=== PATIENT | male | born 1955 | race Caucasian/White ===

== ENCOUNTER → 2017-05-29 | Outpatient (CLI) | payer BC ==
[~2017-05-29] MED LIST: ALFU1TAB37 PO; ASPCH81X PO; ASPI81CH2 PO; HRBLS PO; IPRA1AER2 INH; METO25TA56 PO; OMEGCAP2 PO; RIVA1TAB4 PO; TADA20TA PO
--- NOTE | 2017-05-29 08:39 | DIAGNOSTIC IMAGING REPORT ---
ABDOMEN FOR HERNIA HISTORY: 62 years-old Male R19.09 Abdominal wall mass of suprapubic [id number] COMPARISON: CT abdomen and pelvis 07/13/2014 TECHNIQUE: Multiple real-time sonogram images of the abdominal wall were obtained assessing grayscale appearance FINDINGS: Small fat filled right inguinal hernia is noted. Additionally, there is a small fat filled left inguinal hernia, both of which appear to be reducible without involvement of associated bowel. IMPRESSION: Small reducible bilateral fat filled inguinal hernias. The above report was generated using voice recognition software. It may contain grammatical, syntax or spelling errors. Electronically signed by: Hill Carmona M.D. 05/29/2017 8:38 AM Dictated Date/Time: 05/29/2017 8:35 AM
== END | disposition home or self-care (01) ==
LOC: C.ULTR 07:24
PROVIDERS: ATTEND Family Medicine
DX: K40.20 Bilateral inguinal hernia, without obstruction or gangrene, not specified as recurrent (principal)

== ENCOUNTER 2022-04-22 13:58 | Inpatient (IN) ==
--- NOTE | 2022-04-22 14:43 | XRay Report ---
TWO VIEW CHEST CLINICAL HISTORY: Atypical chest pain. Dyspnea. FINDINGS: PA and lateral chest radiographs are compared to study dated 04/21/2022 and correlated with chest CT dated 12/06/2012. The patient is status post midline sternotomy and cardiac valve surgery. The heart is enlarged noting atherosclerotic calcification of the thoracic aorta. There is pulmonary vas cular congestion. Chronic interstitial thickening similar to previous. There are small pleural effus ions with bibasilar scarring/atelectasis. There is no pneumothorax. The skeletal structures are osteo penic. The bony thorax appears intact. IMPRESSION: 1. Cardiomegaly with pulmonary vascular congestion. 2. Small pleural effusions. ACT 112: Negative or not required by law. Electronically signed by: Shen Aguilar M.D. 04/22/2022 2:42 PM
[2022-04-22 15:18] LABS: Basophils # (auto) 0.03 K/uL (0-0.2); Basophils % (auto) 0.3 %; Eosinophils # (auto) 0.08 K/uL (0-0.50); Eosinophils % (auto) 0.9 %; Hematocrit (blood only) 44.2 % (40.1-51.0); Hemoglobin 15.3 g/dl (14.0-18.0); Immature Granulocytes # (auto) 0.03 K/uL (0.00-0.02); Immature Granulocytes % (auto) 0.3 %; Lymphocytes # (auto) 1.23 K/uL (1.2-3.4); Lymphocytes % (auto) 14.2 %; Mean Corpuscular Hemoglobin 34.1 pg (25.0-34.0); Mean Corpuscular Hgb Conc 34.6 g/dL (32.0-36.0); Mean Corpuscular Volume 98.4 fL (80.0-100.0); Mean Platelet Volume 10.1 fL (9.4-12.4); Monocytes # (auto) 0.64 K/uL (0.24-0.82); Monocytes % (auto) 7.4 %; Neutrophils # (auto) 6.67 K/uL (1.4-6.5); Neutrophils % (auto) 76.9 %; Platelet Count 264 K/uL (130-400); RDW Coefficient of Variation 13.1 % (11.5-14.5); Red Blood Count 4.49 M/uL (4.63-6.08); White Blood Count 8.68 K/ul (4.8-10.8)
[2022-04-22 15:30] LABS: INR 1.1 (0.9-1.1); Partial Thromboplastin Ratio 0.9; Partial Thromboplastin Time 25.4 Seconds (21.0-31.0)
[2022-04-22 15:43] LABS: Albumin Globulin Ratio 1.1 (0.9-2); Albumin Level 3.4 gm/dl (3.4-5.0); BUN Creatinine Ratio 14.4 (10-20); Bilirubin,Total 0.5 mg/dl (0.2-1.0); Calcium 8.8 mg/dl (8.5-10.1); Creatinine Clr Calc Pharmacy 73.6 ml/min; Est GFR (African American) 86.3 ml/min; Est GFR (Non-African American) 74.5 ml/min; Potassium 3.8 mmol/L (3.5-5.1); Total Protein 6.4 gm/dl (6.0-8.3)
[2022-04-22 15:48] LABS: Troponin I High Sensitivity 43.8 pg/ml (0-20)
--- NOTE | 2022-04-22 16:17 | History & Physical Report ---
Date of Service April 22, 2022 Assessment & Plan (1) Heart failure: Plan: - Is presenting with shortness of breath and chest pressure, orthopnea and bilateral lower extremity edema x1 week with pulmonary congestion seen on CXR, BNP 2900. - Has a history of heart failure, last presentation to this hospital was in 2014 and that was due to severe MR at that time. He has since had the valve repaired, does not have close follow-up with cardiology. - Troponin mildly elevated to 40s, but downtrending from last evening when he initially presented. Suspect elevation is due to fluid, low suspicion for ACS. No current chest pain. - We will initiate IV diuresis with Lasix 20 mg twice daily with potassium repletion. - Echo in AM. - We will consult his fox farmer, Dr. Collins for assistance, patient will likely need reinitiated on several medications and re-established with regular cardiology appts. (2) Pleural effusion: Plan: - Diuresis as above. (3) Mitral regurgitation: Plan: - s/p repair in 2014 at [facility], do not have records or recent cardiology notes for review. - Echo ordered for tomorrow. (4) Hypertension: Plan: - Patient recently started on lisinopril 10 mg, will continue. (5) Alcohol abuse: Plan: - Patient reports drinking about a half of 1/5 of whiskey once daily, has gone several days previously without seizures or any other withdrawal symptoms. Last drink was this morning. - AWSS at risk protocol. - Folate and thiamine repletion daily. (6) Depression with anxiety: Plan: - Recently started on lexapro 10mg, will continue. Plan - Admit medicine with telemetry. - SCDs,Lovenox for VTE ppx. - Full Code. History of Present Illness Chief Complaint: Shortness of breath, chest pain x1 week and a half Primary Care Provider: MARLENE Stanton Carlton Jose is a 67 y/o male with a past medical history of alcohol use disorder, heart failure secondary to severe MR s/p repair in 2014, atrial flutter, hypertension, depression, and anxiety who presents today with shortness of breath. He initially presented last night with 1 week worth of shortness of breath and building chest pressure. Troponin was elevated at 45, he was hypertensive with mild tachycardia, and EKG had shown rate of 107 with LVH without any ischemic changes. 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 He called his fox farmer, Dr. Norman again this morning who recommended he return to the ED for further evaluation and likely admission. Today patient states his chest pain has resolved, has not had any since last evening but is still continuing to be short of breath and has had some swelling in his bilateral legs. He has not had any fever or chills, cough, congestion, further chest pain or palpitations. He does recall having what sounds like a viral URI 2 months ago but has recovered from this since. Patient has a history of heart failure and valve replacement in 2015 at [place], had originally followed with Dr. Collins more closely but over the past 3 years have had some personal life problems and unfortunately has not been able to follow-up with cardiology in 3 years he estimates. He has not been on any medications besides a daily aspirin for some time. On presentation today he is hypertensive and mildly tachycardic, 93% on room air and was placed on 2 L NC. Afebrile. Labs notable for BNP of 2930, troponin 43.8. His last 3 troponin over the past 24 hours have been [id number]. Renal function at baseline, no electrolyte abnormalities or elevated LFTs. Without leukocytosis or left shift. His CXR shows cardiomegaly with pulmonary vascular congestion and small pleural effusions. Patient will be admitted for diuresis secondary to presumed heart failure, further work-up to include cardiology consultation. Allergies Allergy/AdvReac Type Severity Reaction Status Date / Time aspirin [From Percodan] Allergy Verified 03/31/22 11:13 oxycodone [From Percodan] Allergy Verified 04/21/22 23:02 Home Medications Medication Instructions Recorded Confirmed Type aspirin 81 mg tablet,delayed 81 mg PO DAILY 04/21/22 04/22/22 History release coenzyme Q10 30 mg capsule (CoQ-10) 30 mg PO DAILY 04/21/22 04/22/22 History ibuprofen 200 mg tablet 200 mg PO BID PRN Pain 04/21/22 04/22/22 History ibuprofen 200 mg tablet 600 mg PO AMPM 04/21/22 04/22/22 History Past Med/Surg History Medical History (Updated 04/22/22 @ 17:18 by Rosa Simpson PA-C) Alcohol abuse Asthma Shoulder pain, acute Surgical History History of ankle surgery History of back surgery Hx of heart surgery Family History Brother Diabetes Mother Cancer Social History Smoking Status: Current every day smoker Tobacco Type: Cigarettes Hx Alcohol Use: Yes Preferred Language: Hebrew Communication Ability: Effective Shoe Packer Required: No Beliefs That Will Affect Care: None marital status: Legally Current Living Situation: Alone 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 Feels Safe at Home: Yes Review of Systems Review of Systems: Constitutional: No fever/chills, weakness, fatigue, myalgias, anorexia, night sweats Eyes: No diplopia, no worsening or blurred vision ENT: normal hearing, no trouble swallowing Respiratory: increasing sob/guzman with orthopnea x 1 week; no cough, sputum production Cardiovascular: chest pressure buildup over past week with and without exertion; without palpitations Abdomen: No pain, nausea, vomiting, diarrhea or constipation : Denies dysuria, hematuria, increased urgency/frequency, urinary retention Musculoskeletal: b/l lower extremity swelling x 1 week; No joint pain, calf pain Neurologic: No weakness, numbness/tingling, or balance problems Psychiatric: No anxiety or depression Skin: No rash or itch Physical Exam Physical Exam: General: awake, alert, no apparent distress,on 2L NC Head: Normocephalic, atraumatic ENT: PERRL, EOMI, no pharyngeal exudate, mucous membranes moist Chest: diminished breath sounds,some scattered mild expiratory wheezing; on 2L NC, no accessory muscle use Cardiac: Regular rate and rhythm, no murmur, no JVD, normal peripheral pulses, good capillary refill Abdominal: NABS x 4 quadrants, soft, nontender to palpation, no rebound, guarding or tenderness Extremities: Normal inspection, no peripheral edema or erythema, calfs nontender to palpation Psych: Normal mood and affect Neuro: AAO x 3, strength intact bilaterally and rated 5/5, no motor deficits, speech is clear, no peripheral sensory deficits Skin: no rash or erythema Results & Data Results & Data ([facility]) Vital Signs (Past 12 Hours) Vital Signs Temp Pulse Resp BP Pulse Ox 04/22/22 14:08 36.7 C 110 H 28 H 181/109 H 98 Laboratory Results Abnormal lab results 04/22/22 04/22/22 04/22/22 Range/Units 15:02 15:02 15:02 RBC 4.49 L (4.63-6.08) M/uL MCH 34.1 H (25.0-34.0) pg RDW Std Deviation 47.0 H (36.4-46.3) fL Neut # (Auto) 6.67 H (1.4-6.5) K/uL Immature Gran # (Auto) 0.03 H (0.00-0.02) K/uL Sodium 135 L (136-145) mmol/L Glucose 100 H (70-99(Fasting)) mg/dl Alkaline Phosphatase 106 H (34-104) U/L Troponin I High Sens 43.8 H (0-20) pg/ml B-Natriuretic Peptide 2930 H (0-100) pg/ml Diagnostic Findings Chest X-Ray 04/22/22 14:15 TWO VIEW CHEST CLINICAL HISTORY: Atypical chest pain. Dyspnea. FINDINGS: PA and lateral chest radiographs are compared to study dated 04/21/2022 and correlated with chest CT dated 12/06/2012. The patient is status post midline sternotomy and cardiac valve surgery. The heart is enlarged noting atheros clerotic calcification of the thoracic aorta. There is pulmonary vascular congestion. Chronic interstitial thickening similar to previous. There are small pleural effusions with bibasilar scarring/atelectasis. There is no pneumothorax. The skeletal structures are osteopenic. The bony thorax appears intact. IMPRESSION: 1. Cardiomegaly with pulmonary vascular congestion. 2. Small pleural effusions. ACT 112: Negative or not required by law. Electronically signed by: Shen Aguilar M.D. 04/22/2022 2:42 PM ECG Additional Comments: Sinus tachycardia Left atrial enlargement Nonspecific T wave abnormality Prolonged QT Abnormal ECG When compared with ECG of 21-APR-2022 20:51, No significant change was found. Code Status & VTE Plan Code Status Full Code. Supervising Physician Co-Signing Physician Notes Patient seen and examined, chart reviewed, case discussed with Rosa Simpson PA-C and I agree with the assessment and plan as above except as otherwise noted Labs and images reviewed 67-year-old male with a past medical history of alcohol use, heart failure s/p MR repair 2015, atrial flutter, hypertension, anxiety/depression who presents with 1 week of shortness of breath and chest pressure. Troponin mildly elevated at 45, EKG without ST segment changes/acute T wave changes. On initial evaluation patient is with shortness of breath, bibasilar crackles, bilateral lower extremity swelling. Patient seen at bedside, reports has had progressively increasing swelling in his legs and shortness of breath laying flat. Denies salty intake, is eating chips/pretzels at bedside. Did discuss effect of salt on fluid retention, and general recommendations for less than 2 g of sodium intake. Patient without any pain at bedside, no additional questions or concerns. Endorses brisk diuresis since being on Lasix. BNP is elevated, pulmonary congestion is seen on CXR. Suspect acute congestive heart failure. Given diuresis in ER, continue twice daily diuresis and a chest tube at loss of 1-1.5 L. Suspect elevated troponin in the setting of demand, trended. Echo pending. Daily alcohol use, follow for KP S protocol. No history of seizure/withdrawal. Agree with chronic management above. PG Care Time/CCT Total # of Minutes Spent Total Time Spent with Patient: Total time spent is greater than 50% in coordination of care (as documented) at patient's floor/unit and/or counseling patient: Coding Level of Care Code 31898 INT INP/OBS CARE 2/55MIN Diagnoses Heart failure I50.9 Pleural effusion J90 Mitral regurgitation I34.0 Hypertension I10 Alcohol abuse F10.10 Depression with anxiety F41.8
--- NOTE | 2022-04-22 16:29 | Electrocardiogram Report ---
Test Reason : Blood Pressure : / mmHG Vent. Rate : 105 BPM Atrial Rate : 105 BPM P-R Int : 150 ms QRS Dur : 092 ms QT Int : 368 ms P-R-T Axes : 057 067 062 degrees QTc Int : 486 ms Sinus tachycardia Left atrial enlargement Nonspecific T wave abnormality Prolonged QT Abnormal ECG When compared with ECG of 21-APR-2022 20:51, No significant change was found Confirmed by Uri Menard ([id number]) on 04/22/2022 4:29:40 PM Referred By: Confirmed By:Uri Menard
[2022-04-22] MEDS ORDERED: FUROSEMIDE 40 MG/4 ML VIAL IV STA (16:30)
[2022-04-22] MEDS ORDERED: POTASSIUM CHLORIDE CRTAB 20 MEQ TABCR PO STA (16:30)
--- NOTE | 2022-04-22 16:33 | Emergency Department Note ---
Impression & Plan CHF (congestive heart failure), Pleural effusion, Elevated troponin ED Provider Note NAME: RUDOLPH GOOD AGE: 67 SEX: M : 1955 ARRIVES VIA: Walk-In INFORMANT: [Patient][, ] ED PROVIDER(S): [Farshad Colmenares, DO] CHIEF COMPLAINT: shortness of breath HPI: Patient is a 67-year-old male with a past medical history of dissection of the HTN, CABG, who presents the ER for shortness of breath. This been getting worse over the past 2 weeks. He notes he can barely breathe now. He denies any chest pain belly pain. He admits to swelling on his legs. No nausea, vomiting, or diarrhea. He was referred in by his PCP. No other exacerbating or remitting factors. He notes that rest is the only thing that helps him as any movement makes him significantly short of breath. PAST MEDICAL HISTORY:See Below PAST SURGICAL HISTORY:See Below FAMILY HISTORY:See Below SOCIAL HISTORY:See Below HOME MEDICATIONS:See Below ALLERGIES:See Below VITALS:See Below PHYSICAL EXAMINATION: GENERAL: Sitting up in bed, alert, slightly dyspneic with conversation, on nasal cannula EYE EXAM: normal conjunctiva. OROPHARYNX: mucous membranes are moist LUNGS: Diminished bilaterally. Normal chest wall mechanics HEART: no murmurs, S1 normal and S2 normal ABDOMEN: abdomen soft, non-tender, normo-active bowel sounds, no masses, no rebound or guarding. BACK: Back is symmetrical on inspection and there is no deformity, no midline tenderness, no CVA tenderness. SKIN: no rashes and no bruising UPPER EXTREMITIES: upper extremities are grossly normal. LOWER EXTREMITIES: No pitting edema. NEURO EXAM: Normal sensorium, cranial nerves II-XII grossly intact, normal speech, no gross weakness of arms, no gross weakness of legs. MEDICAL DECISION MAKING: Patient is a 67-year-old male who presents ER for the boasting complaint. IV was established with labs obtained. Labs show no significant leukocytosis or anemia. INR was unremarkable. BMP along with LFTs bilirubin was unremarkable. BNP was significantly elevated at nearly 3000. Troponin elevated at 44 which is consistent with his baseline. Chest x-ray with cephalization and pleural effusions. He was given IV Lasix and oral potassium. EKG was nondiagnostic. He was updated bedside. Discussed case with the hospitalist for further evaluation and admission. Patient did remain on 2 L nasal cannula for comfort due to work of breathing as this initially helped significantly. external records were reviewed. Triage Nursing notes reviewed. Limited review of prior medical records performed Vital Signs: reviewed and remarkable for no significant abnormalities Differential diagnosis: Differential diagnoses includes but is not limited to pneumonia, bronchitis, COPD/Asthma exacerbation, pneumothorax, pulmonary embolism, congestive heart failure, acute coronary syndrome ER treatment provided: See below Diagnostics interpreted by me include EKG and cardiac monitoring as listed below: -Cardiac Monitoring: An order was placed for continuous cardiac monitoring. The monitor shows a rate of 80 with sinus rhythm. -ECG: Sinus rhythm rate of 105 Normal axis No PVCs QTC 486 -Laboratory studies:Interpreted by me as stated above in MDM and shown below. Imaging studies: Xrays: As interpreted by me: Portable AP upright 1 view of the chest shows no focal pneumonia CTs show: none Consultation(s): Discussed the case with Dr. Matthews for further evaluation in regards to presentation, work-up and treatment Procedures:none Critical Care: None Past Med/Surg History Medical History (Updated 04/22/22 @ 22:21 by Farshad Colmenares DO) Alcohol abuse Asthma Shoulder pain, acute Surgical History History of ankle surgery History of back surgery Hx of heart surgery Family History Brother Diabetes Mother Cancer Social History Smoking Status: Current every day smoker Tobacco Type: Cigarettes Cigarettes Per Day: 1/2 pack daily states he stopped 3 days ago; Tobacco Cessation Education Requested by Patient: No Hx Alcohol Use: Yes Alcohol type: other Hx Substance Use: Yes Last Used Substance: Unknown Preferred Language: Wallisian Communication Ability: Effective Communication Ability Comment: pt states he can read enough to get by but is not a very good reader Materials Management Manager Required: No Beliefs That Will Affect Care: None marital status: Legally Current Living Situation: Alone 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 Other Information That Helps Us Care for You: No Feels Safe at Home: Yes Safety Concerns: Feels Safe At This Time Assistive Devices: Glasses Assistive Devices Comment: reading glasses Allergies Allergies Allergy/AdvReac Type Severity Reaction Status Date / Time aspirin [From Percodan] Allergy Verified 03/31/22 11:13 oxycodone [From Percodan] Allergy Verified 04/21/22 23:02 Home Meds Home Medications Medication Instructions Recorded Confirmed aspirin 81 mg tablet,delayed 81 mg PO DAILY 04/21/22 04/22/22 release coenzyme Q10 30 mg capsule (CoQ-10) 30 mg PO DAILY 04/21/22 04/22/22 ibuprofen 200 mg tablet 200 mg PO BID PRN Pain 04/21/22 04/22/22 ibuprofen 200 mg tablet 600 mg PO AMPM 04/21/22 04/22/22 Results & Data (ED) Vital Signs Vital Signs - 24 hr 04/22/22 14:08 04/22/22 16:54 04/22/22 18:00 Temperature 36.7 C Temperature Source Skin Pulse Rate 110 H Pulse Rate [Apical] 108 H 112 H Pulse Rhythm Regular Pulse Strength Normal Respiratory Rate 28 H 19 20 Respiratory Effort / Characteristics Spontaneous Short of Breath SOB on Exertion Respiratory Depth Normal Respiratory Pattern Tachypnea Blood Pressure 181/109 H Blood Pressure [Right Arm] 154/106 H 160/103 H Blood Pressure Mean 133 Blood Pressure Mean [Right Arm] 122 122 Blood Pressure Position [Right Arm] Pulse Oximetry 98 99 96 Oxygen Delivery Method Nasal Cannula Oxygen Flow Rate 2 Sepsis Recent Fever Within 48 Hours No Sepsis New/Unexplained Change in Mental Status N/A Sepsis Action Taken by Nursing No Action Required 04/22/22 19:10 04/22/22 20:00 04/22/22 20:22 Temperature Temperature Source Pulse Rate Pulse Rate [Apical] 108 H Pulse Rhythm Pulse Strength Respiratory Rate Respiratory Effort / Characteristics Respiratory Depth Respiratory Pattern Blood Pressure Blood Pressure [Right Arm] 213/67 H 156/105 H 167/118 H Blood Pressure Mean Blood Pressure Mean [Right Arm] 115 122 134 Blood Pressure Position [Right Arm] Sitting Pulse Oximetry 97 Oxygen Delivery Method Nasal Cannula Oxygen Flow Rate 2 Sepsis Recent Fever Within 48 Hours Sepsis New/Unexplained Change in Mental Status Sepsis Action Taken by Nursing 04/22/22 21:13 04/22/22 22:10 Temperature Temperature Source Pulse Rate 101 H Pulse Rate [Apical] 106 H Pulse Rhythm Pulse Strength Respiratory Rate 22 16 Respiratory Effort / Characteristics Respiratory Depth Respiratory Pattern Blood Pressure Blood Pressure [Right Arm] 146/93 H Blood Pressure Mean Blood Pressure Mean [Right Arm] 110 Blood Pressure Position [Right Arm] Pulse Oximetry 98 97 Oxygen Delivery Method Nasal Cannula Nasal Cannula Oxygen Flow Rate 2 2 Sepsis Recent Fever Within 48 Hours Sepsis New/Unexplained Change in Mental Status Sepsis Action Taken by Nursing Laboratory Data 04/22/22 15:02 04/22/22 15:02 Lab Results 04/22/22 04/22/22 04/22/22 Range/Units 15:02 15:02 15:02 WBC 8.68 (4.8-10.8) K/ul RBC 4.49 L (4.63-6.08) M/uL Hgb 15.3 (14.0-18.0) g/dl Hct 44.2 (40.1-51.0) % MCV 98.4 (80.0-100.0) fL MCH 34.1 H (25.0-34.0) pg MCHC 34.6 (32.0-36.0) g/dL RDW Std Deviation 47.0 H (36.4-46.3) fL RDW Coeff of Donna 13.1 (11.5-14.5) % Plt Count 264 (130-400) K/uL MPV 10.1 (9.4-12.4) fL Immature Gran % (Auto) 0.3 % Neut % (Auto) 76.9 % Lymph % (Auto) 14.2 % Hardee % (Auto) 7.4 % Eos % (Auto) 0.9 % Baso % (Auto) 0.3 % Neut # (Auto) 6.67 H (1.4-6.5) K/uL Lymph # (Auto) 1.23 (1.2-3.4) K/uL [place]ee # (Auto) 0.64 (0.24-0.82) K/uL Eos # (Auto) 0.08 (0-0.50) K/uL Baso # (Auto) 0.03 (0-0.2) K/uL Immature Gran # (Auto) 0.03 H (0.00-0.02) K/uL PT 12.0 (9.0-12.0) Seconds INR 1.1 (0.9-1.1) APTT 25.4 (21.0-31.0) Seconds PTT Ratio 0.9 Sodium 135 L (136-145) mmol/L Potassium 3.8 (3.5-5.1) mmol/L Chloride 103 (98-107) mmol/L Carbon Dioxide 24 (21-32) mmol/L Anion Gap 8 (3-11) BUN 15 (6-23) mg/dl Creatinine 1.04 (0.6-1.4) mg/dl Est Cr Clr Drug Dosing 73.6 ml/min Est GFR ( Amer) 86.3 ml/min Est GFR (Non-Af Amer) 74.5 ml/min BUN/Creatinine Ratio 14.4 (10-20) Glucose 100 H (70-99(Fasting)) mg/dl Calcium 8.8 (8.5-10.1) mg/dl Total Bilirubin 0.5 (0.2-1.0) mg/dl AST 18 (13-39) U/L ALT 15 (7-52) U/L Alkaline Phosphatase 106 H (34-104) U/L Troponin I High Sens 43.8 H (0-20) pg/ml B-Natriuretic Peptide (0-100) pg/ml Total Protein 6.4 (6.0-8.3) gm/dl Albumin 3.4 (3.4-5.0) gm/dl Globulin 3.0 (2.5-4.0) gm/dl Albumin/Globulin Ratio 1.1 (0.9-2) SARS-CoV-2, RNA, NAAT (NEGATIVE) 04/22/22 04/22/22 Range/Units 15:02 16:39 WBC (4.8-10.8) K/ul RBC (4.63-6.08) M/uL Hgb (14.0-18.0) g/dl Hct (40.1-51.0) % MCV (80.0-100.0) fL MCH (25.0-34.0) pg MCHC (32.0-36.0) g/dL RDW Std Deviation (36.4-46.3) fL RDW Coeff of Donna (11.5-14.5) % Plt Count (130-400) K/uL MPV (9.4-12.4) fL Immature Gran % (Auto) % Neut % (Auto) % Lymph % (Auto) % [place]ee % (Auto) % Eos % (Auto) % Baso % (Auto) % Neut # (Auto) (1.4-6.5) K/uL Lymph # (Auto) (1.2-3.4) K/uL Hardee # (Auto) (0.24-0.82) K/uL Eos # (Auto) (0-0.50) K/uL Baso # (Auto) (0-0.2) K/uL Immature Gran # (Auto) (0.00-0.02) K/uL PT (9.0-12.0) Seconds INR (0.9-1.1) APTT (21.0-31.0) Seconds PTT Ratio Sodium (136-145) mmol/L Potassium (3.5-5.1) mmol/L Chloride (98-107) mmol/L Carbon Dioxide (21-32) mmol/L Anion Gap (3-11) BUN (6-23) mg/dl Creatinine (0.6-1.4) mg/dl Est Cr Clr Drug Dosing ml/min Est GFR ( Amer) ml/min Est GFR (Non-Af Amer) ml/min BUN/Creatinine Ratio (10-20) Glucose (70-99(Fasting)) mg/dl Calcium (8.5-10.1) mg/dl Total Bilirubin (0.2-1.0) mg/dl AST (13-39) U/L ALT (7-52) U/L Alkaline Phosphatase (34-104) U/L Troponin I High Sens (0-20) pg/ml B-Natriuretic Peptide 2930 H (0-100) pg/ml Total Protein (6.0-8.3) gm/dl Albumin (3.4-5.0) gm/dl Globulin (2.5-4.0) gm/dl Albumin/Globulin Ratio (0.9-2) SARS-CoV-2, RNA, NAAT NEGATIVE (NEGATIVE) Administered Medications Discontinued Medications Furosemide (Furosemide 40 Mg/4 Ml Vial) 40 mg IV NOW STA Stop: 04/22/22 16:31 Last Admin: 04/22/22 16:50 Dose: 40 mg Documented By: AMS Lisinopril (Lisinopril 10 Mg Tab) 10 mg PO NOW STA Stop: 04/22/22 19:12 Last Admin: 04/22/22 19:37 Dose: 10 mg Documented By: AMS Potassium Chloride (Potassium Chloride Crtab 20 Meq Tabcr) 40 meq PO NOW STA Stop: 04/22/22 16:31 Last Admin: 04/22/22 16:50 Dose: 40 meq Documented By: AMS Imaging Data Radiologist's Impression: Chest X-Ray 04/22/22 14:15 TWO VIEW CHEST CLINICAL HISTORY: Atypical chest pain. Dyspnea. FINDINGS: PA and lateral chest radiographs are compared to study dated 04/21/2022 and correlated with chest CT dated 12/06/2012. The patient is status post midline sternotomy and cardiac valve surgery. The heart is enlarged noting atherosclerotic calcification of the thoracic aorta. There is pulmonary vascular congestion. Chronic interstitial thickening similar to previous. There are small pleural effusions with bibasilar scarring/atelectasis. There is no pneumothorax. The skeletal structures are osteopenic. The bony thorax appears intact. IMPRESSION: 1. Cardiomegaly with pulmonary vascular congestion. 2. Small pleural effusions. ACT 112: Negative or not required by law. Electronically signed by: Shen Aguilar M.D. 04/22/2022 2:42 PM Discharge Plan Visit Data Chief Complaint: Referred by Doctor Stated Complaint: RETAINING FLUID, TROUBLE BREATHING ED Provider: Farshad Colmenares Discharge Problem: CHF (congestive heart failure), Pleural effusion, Elevated troponin Forms Stand Alone Forms: [employer] Prescriptions Prescriptions: No Action ibuprofen 200 mg Tablet 600 mg PO AMPM coenzyme Q10 [CoQ-10] 30 mg Capsule 30 mg PO DAILY ibuprofen [Excedrin IB] 200 mg Tablet 200 mg PO BID PRN (Reason: Pain) aspirin 81 mg Tablet,Delayed Release (Dr/Ec) 81 mg PO DAILY Referrals Referrals: Rosemarie Lopes CRNP [Primary Care Provider] -
[2022-04-22] MEDS ORDERED: lisinopril 10 MG TAB PO STA (19:11)
[2022-04-22] MEDS ORDERED: PNEUMOCOCCAL Polysaccharide Vaccine 25mcg/0.5mL vial/Syr IM ONE (20:45)
[2022-04-22] MEDS ORDERED: Flu Vaccine-High Dose (Fluzone-HD) PF 65+ 0.7mL SYR IM ONE (20:45)
[2022-04-22] MEDS ORDERED: CALCIUM CARBONATE 500 MG CHEWABLE TAB PO PRN (23:04)
[2022-04-22] MEDS ORDERED: LORazepam 2 MG/1 ML VIAL IV PRN (23:09)
[2022-04-22] MEDS ORDERED: IBUPROFEN 200 MG TAB PO PRN (23:09)
[2022-04-22] MEDS ORDERED: ACETAMINOPHEN 325 MG TAB PO PRN (23:09)
[2022-04-22] MEDS ORDERED: ALBUT/IPRATROP 3MG/0.5MG NEB 3 ML VIAL NEB PRN (23:09)
[2022-04-22] MEDS ORDERED: POLYETHYLENE (MIRALAX) 17 GM PACK PO PRN (23:09)
[2022-04-22] MEDS: FUROSEMIDE INJ 20 MG/2 ML VIAL IV SCH (23:49)
[2022-04-22] MEDS: POTASSIUM CHLORIDE CRTAB 20 MEQ TABCR PO SCH (23:49)
[2022-04-23] MEDS: ENOXAPARIN INJ 40 MG/0.4 ML SYR SQ SCH ×2 (00:18→19:54)
[2022-04-23] MEDS: ALBUT/IPRATROP 3MG/0.5MG NEB 3 ML VIAL INH SCH ×5 (00:32→19:19)
[2022-04-23 08:06] LABS: Basophils # (auto) 0.04 K/uL (0-0.2); Basophils % (auto) 0.5 %; Eosinophils # (auto) 0.12 K/uL (0-0.50); Eosinophils % (auto) 1.5 %; Hemoglobin 15.6 g/dl (14.0-18.0); Immature Granulocytes # (auto) 0.03 K/uL (0.00-0.02); Immature Granulocytes % (auto) 0.4 %; Lymphocytes # (auto) 1.56 K/uL (1.2-3.4); Mean Corpuscular Hemoglobin 33.8 pg (25.0-34.0); Mean Corpuscular Hgb Conc 34.7 g/dL (32.0-36.0); Mean Corpuscular Volume 97.6 fL (80.0-100.0); Mean Platelet Volume 10.7 fL (9.4-12.4); Monocytes # (auto) 0.81 K/uL (0.24-0.82); Monocytes % (auto) 9.9 %; Neutrophils # (auto) 5.64 K/uL (1.4-6.5); Neutrophils % (auto) 68.7 %; Platelet Count 257 K/uL (130-400); RDW Coefficient of Variation 13.1 % (11.5-14.5); RDW Standard Deviation 46.3 fL (36.4-46.3); Red Blood Count 4.61 M/uL (4.63-6.08)
[2022-04-23] MEDS ORDERED: lisinopril 10 MG TAB PO SCH (09:00)
[2022-04-23] MEDS ORDERED: COENZYME Q10 30 MG PO SCH (09:00)
[2022-04-23] MEDS ORDERED: THIAMINE HCL 100 MG TAB PO SCH (09:00)
[2022-04-23 09:07] LABS: Calcium 8.8 mg/dl (8.5-10.1); Magnesium 1.8 mg/dl (1.7-2.4); Potassium 3.6 mmol/L (3.5-5.1)
[2022-04-23 09:13] LABS: BUN Creatinine Ratio 19.8 (10-20); Creatinine Clr Calc Pharmacy 79.8 ml/min; Est GFR (African American) 95.1 ml/min
[2022-04-23] MEDS: ASPIRIN 81 MG ECTAB PO SCH (10:00)
[2022-04-23] MEDS: POTASSIUM CHLORIDE CRTAB 20 MEQ TABCR PO SCH ×2 (10:00→19:54)
[2022-04-23] MEDS: ESCITALOPRAM OXALATE 10 MG TAB PO SCH (10:01)
[2022-04-23] MEDS: FOLIC ACID 1 MG TAB PO SCH (10:01)
[2022-04-23] MEDS: THIAMINE HCL 100 MG TAB PO SCH ×2 (10:02→19:55)
[2022-04-23] MEDS: FUROSEMIDE INJ 20 MG/2 ML VIAL IV SCH (10:06)
--- NOTE | 2022-04-23 12:46 | Cardiology Consultation ---
Date of Consultation April 23, 2022 History of Present Illness Reason for Consultation: Nonischemic cardiomyopathy likely secondary to alcohol abuse, previous mitral valve repair Attending Physician: Adrian Rodrigues History of Present Illness This is a patient I have not seen in over 2 years. He underwent mitral valve repair in 2014. He has had a number of stressful events including a divorce and a fight overland with his family. It sounds like he has lost both of those situations in court. This has led him to drinking a half of 1/5 of alcohol every day over the last year. He notes increasing shortness of breath with activity it became worse in the last 2 weeks. He describes some degree of orthopnea and lower extremity edema. He looks significantly worse compared to when I last saw him. He denies any lightest dizziness presyncope syncope. He notes his appetites been so-so. He denies any increased abdominal distention. He is unaware of any palpitations or fluttering or feeling his heart racing. He was seen in the emergency room for chest discomfort and shortness of breath with a mildly elevated highly sensitive troponin likely on the basis of heart failure. He signed out AGAINST MEDICAL ADVICE as he did not want to stay in the hospital. He had contacted our office to be seen and with those symptoms we recommended he return back to the hospital. He is feeling better with diuresis today the chest discomfort he had is improving. 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 I discussed with him he needs to stay at least till tomorrow. Allergies Allergy/AdvReac Type Severity Reaction Status Date / Time aspirin [From Percodan] Allergy Verified 03/31/22 11:13 oxycodone [From Percodan] Allergy Verified 04/21/22 23:02 Home Medications Medication Instructions Recorded Confirmed Type aspirin 81 mg tablet,delayed 81 mg PO DAILY 04/21/22 04/22/22 History release coenzyme Q10 30 mg capsule (CoQ-10) 30 mg PO DAILY 04/21/22 04/22/22 History ibuprofen 200 mg tablet 200 mg PO BID PRN Pain 04/21/22 04/22/22 History ibuprofen 200 mg tablet 600 mg PO AMPM 04/21/22 04/22/22 History Patient History Medical History Alcohol abuse Asthma Shoulder pain, acute Surgical History History of ankle surgery History of back surgery Hx of heart surgery Family History Brother Diabetes Mother Cancer Social History Smoking Status: Current every day smoker Tobacco Type: Cigarettes Cigarettes Per Day: 1/2 pack daily states he stopped 3 days ago; Tobacco Cessation Education Requested by Patient: No Hx Alcohol Use: Yes Alcohol type: other Hx Substance Use: Yes Last Used Substance: Unknown Preferred Language: Polish Communication Ability: Effective Communication Ability Comment: pt states he can read enough to get by but is not a very good reader Shell Grader Required: No Beliefs That Will Affect Care: None marital status: Legally Current Living Situation: Alone 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 Other Information That Helps Us Care for You: No Feels Safe at Home: Yes Safety Concerns: Feels Safe At This Time Assistive Devices: Glasses Assistive Devices Comment: reading glasses Results & Data ([facility]) Vital Signs (Past 12 Hours) Vital Signs Temp Pulse Pulse Resp BP Pulse Ox O2 Del Method 04/23/22 11:57 36.3 C L 97 H 19 136/86 97 Room Air 04/23/22 06:00 Room Air 04/23/22 08:00 103 H 04/23/22 08:03 36.7 C 73 20 113/77 98 Room Air 04/23/22 07:27 104 H 18 97 Room Air 04/23/22 03:20 36.8 C 102 H 18 134/86 97 Room Air He is awake alert and oriented x3 although at times he has some difficulty finding words and a little bit of slurred speech HEENT: Markedly reduced carotid upstrokes no evidence of carotid bruits Lungs: Clear to auscultation bilaterally no rales rhonchi or wheezing Heart: Tachycardic but regular no appreciable murmurs or rubs it was hard to appreciate a gallop given his tachycardia Abdomen: Soft nontender distended positive bowel sounds Extremities: Mild lower extremity edema with prominent swelling of his right knee Psychiatric: He is visibly upset talking about the trials and tribulations of his family life. IMPRESSIONS: 1. Acute on chronic systolic heart failure secondary to nonischemic cardiopathy 2. Nonischemic cardiomyopathy likely secondary to alcohol abuse 3. History of mitral valve repair with quadrangular resection of the P2 component of the posterior mitral valve leaflet with a 30 mm ring July 2014 at [facility] 4. Previous echocardiogram in 2019 suggesting EF in the range of 50 to 55% 5. Echocardiogram this admission suggesting severe biventricular dysfunction, mean gradient across the mitral valve for plate repair of 7 mmHg with at least mild mitral regurgitation 6. History of cardiac catheterization preoperatively with a 40% mid LAD lesion and an ostial 70% D2 lesion and a medium vessel 7. History of atrial flutter ablation October 2014 8. Alcohol abuse 9. COPD 10. Depression Fortunately the whole seems to have caused Mr. Pendleton to have a nonischemic cardiomyopathy. We discussed the need to sustain from drinking alcohol. We will have to be careful that he does not go through withdrawal. His speech does seem a little slurred even though he denies having had withdrawal in the past even if he did not drink for a couple of days given the volume that he has been drinking for at least a year it is concerning. We will add Entresto low-dose twice daily. He was not on lisinopril as an outpatient according to his outpatient med rec therefore he only received 1 dose and I think we can start his Entresto this evening. We already asked that care management be involved to help with his medications. We will add Toprol-XL 25 mg nightly. He needs daily weights on a standing scale. I will give him an additional 40 mg of Lasix this afternoon and then we can reassess his volume status in the morning. He will need to go home with Lasix. He has significant psychosocial stressors leading to his alcohol use he feels alone and isolated and depressed. I did ask him if he would be interested in meeting with psychiatry and he is agreeable to this while he is here in the hospital. He has had no arrhythmias on the monitor at this point. Hopefully he will give us the time to try to tune him up and help him feel better he actually describes wanting to leave the hospital today and I suggested that was a bad decision. If we can stabilize him maybe we can get him out tomorrow afternoon. After he is on aggressive medical therapy for 90 days and abstaining from alcohol for 90 days we will reassess his LV function and see if it is improved and then have a conversation with regards to a defibrillator. Is minimal troponin elevation is related to heart failure. We will have to watch his serum sodium and his creatinine as we diurese him. This was discussed with the primary service.
[2022-04-23] MEDS: METOPROLOL SUCC 25MG EXT REL TAB PO SCH (14:24)
[2022-04-23] MEDS ORDERED: FUROSEMIDE 40 MG/4 ML VIAL IV ONE (15:38)
[2022-04-23] MEDS: VALSARTAN/SACUBITRIL 26/24MG TAB PO SCH (19:53)
[2022-04-23] MEDS ORDERED: GABAPENTIN 600MG ALCOHOL WITHDRAWAL LOAD PO STA (21:38)
[2022-04-23] MEDS ORDERED: GABAPENTIN 600 MG TAB PO ONE (21:38)
--- NOTE | 2022-04-23 21:38 | Hospitalist Progress Note ---
Date of Service April 23, 2022 Assessment & Plan (1) Acute on chronic systolic heart failure: Plan: echo with severe systolic CHF - EF 20-25%. etiology - this may be alcoholic cardiomyopathy. ischemic cardiomyopathy possible ? defer heart cath to cardiology. no evidence of significant valvular disease. cont IV diuresis with lasix BID. agree with institution of metoprolol succinate + Entresto BID. stop lisinopril. needs full abstinence from etoh. add thiamine 200mg BID. appreciate Dr Collins's consultation from [facility] cardiology. (2) Mitral regurgitation: Plan[place] [facility] [place] on echo today. (3) Hypertension: Plan: Stopping lisinopril in pernell of initiation of metoprolol succinate + Entresto. (4) Alcohol abuse: Plan: Patient reports drinking about a half of 1/5 of whiskey once daily. At high risk of etoh withdrawal. Add gabapentin taper. Symptom-triggered ativan per AWSS protocol. Folate and thiamine supplementation - increase latter to 200mg BID. (5) Depression with anxiety: Plan: Cont lexapro 10mg (6) Elevated troponin: Plan: 2nd to myocardial demand ischemia in setting of #1. No evidence of ACS. (7) History of mitral valve repair: Plan[place] [facility] [place] mild MR on echo today. 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 he feels significantly better s/p lasix since admission improved dyspnea improved edema of legs he does not feel shaky or feel he is withdrawing from etoh he does understand that etoh abuse has likely affected his heart function he hopes to remain abstinent after discharge mentions he had a previous traumatic wound of his right medial foot which has resolved tele - couple runs of NSVT, otherwise sinus tach Review of Systems Review of Systems: cv - no chest pain pulm - dyspnea improved GI - no nausea or emesis Physical Exam Physical Exam: gen - thin, sitting in chair, NAD neck - JVD present 1/2 way up neck sitting at 90 degrees mouth - MMM heart - tachycardic, s1 s2, 1-2/6 systolic murmur LLSB lungs - fine bibasilar rales; no wheeze; no increased work of breathing abd - soft NT ND BS+ ext - <1+ edema b/l, pulses 2+ b/l skin - old traumatic wound right medial foot - fully healed neuro - no tremors Results & Data Results & Data ([facility]) Vital Signs (Past 12 Hours) Vital Signs Temp Pulse Pulse Resp BP Pulse Ox O2 Del Method 04/23/22 20:16 Room Air 04/23/22 19:35 36.7 C 108 H 20 145/90 H 96 Room Air 04/23/22 19:20 103 H 18 96 Room Air 04/23/22 17:00 106 H 04/23/22 15:23 36.4 C L 83 18 148/96 H 98 Room Air 04/23/22 13:59 103 H 18 97 Room Air 04/23/22 11:57 36.3 C L 97 H 19 136/86 97 Room Air Laboratory Results Laboratory Results - last 24 hr 04/23/22 04/23/22 04/23/22 06:43 06:43 08:26 WBC 8.20 RBC 4.61 L Hgb 15.6 Hct 45.0 MCV 97.6 MCH 33.8 MCHC 34.7 RDW Std Deviation 46.3 RDW Coeff of Donna 13.1 Plt Count 257 MPV 10.7 Immature Gran % (Auto) 0.4 Neut % (Auto) 68.7 Lymph % (Auto) 19.0 [place]er % (Auto) 9.9 Eos % (Auto) 1.5 Baso % (Auto) 0.5 Neut # (Auto) 5.64 Lymph # (Auto) 1.56 [place]er # (Auto) 0.81 Eos # (Auto) 0.12 Baso # (Auto) 0.04 Immature Gran # (Auto) 0.03 H Sodium 138 Potassium 3.6 Chloride 104 Carbon Dioxide 26 Anion Gap 8 BUN 19 Creatinine 0.96 Est Cr Clr Drug Dosing 79.8 Est GFR ( Amer) 95.1 Est GFR (Non-Af Amer) 82.0 BUN/Creatinine Ratio 19.8 Glucose 91 Calcium 8.8 Magnesium 1.8 TSH 1.039 Diagnostic Findings echo - EF 20-25%; mild MR PG Care Time/CCT Total # of Minutes Spent Total Time Spent with Patient: Total time spent is greater than 50% in coordination of care (as documented) at patient's floor/unit and/or counseling patient: Coding Level of Care Code 13519 SUB INP/OBS CARE MIN Diagnoses Acute on chronic systolic heart failure I50.23 Mitral regurgitation I34.0 Hypertension I10 Alcohol abuse F10.10 Depression with anxiety F41.8 Elevated troponin R77.8 History of mitral valve repair Z98.890
[2022-04-23] MEDS ORDERED: MELATONIN 3 MG TAB PO ONE (22:55)
[2022-04-24] MEDS: ALBUT/IPRATROP 3MG/0.5MG NEB 3 ML VIAL INH SCH (00:55)
[2022-04-24] MEDS: GABAPENTIN 100 MG CAP PO SCH ×2 (04:06→09:10)
[2022-04-24] MEDS ORDERED: ALBUT/IPRATROP 3MG/0.5MG NEB 3 ML VIAL NEB PRN (05:13)
[2022-04-24 07:31] LABS: Calcium 8.7 mg/dl (8.5-10.1); Magnesium 1.7 mg/dl (1.7-2.4); Potassium 3.8 mmol/L (3.5-5.1)
[2022-04-24 07:37] LABS: Creatinine Clr Calc Pharmacy 67.3 ml/min; Est GFR (African American) 85.3 ml/min; Est GFR (Non-African American) 73.6 ml/min
[2022-04-24] MEDS: THIAMINE HCL 100 MG TAB PO SCH ×2 (09:11→19:39)
[2022-04-24] MEDS: ESCITALOPRAM OXALATE 10 MG TAB PO SCH (09:11)
[2022-04-24] MEDS: POTASSIUM CHLORIDE CRTAB 20 MEQ TABCR PO SCH ×2 (09:11→19:40)
[2022-04-24] MEDS: FOLIC ACID 1 MG TAB PO SCH (09:11)
[2022-04-24] MEDS: METOPROLOL SUCC 25MG EXT REL TAB PO SCH (09:11)
[2022-04-24] MEDS: ASPIRIN 81 MG ECTAB PO SCH (09:11)
[2022-04-24] MEDS: VALSARTAN/SACUBITRIL 26/24MG TAB PO SCH (09:11)
--- NOTE | 2022-04-24 11:35 | Cardiology Progress Note ---
Date of Service April 24, 2022 Assessment & Plan Admission and Anticipated Discharge Date Admission Date: April 22, 2022 Subjective He looks better today. His chest pain is resolved his shortness of breath is improving he notes he walked in the hospital yesterday without any dyspnea. He denies any orthostatic symptoms. His lower extremity edema in his ankles and lower extremities has improved his right knee remains swollen. He denies any falls. He is having back discomfort. He is unaware of any palpitations or fluttering. Results & Data ([facility]) Vital Signs (Past 12 Hours) Vital Signs Temp Pulse Pulse Resp BP Pulse Ox O2 Del Method 04/24/22 07:49 106 H 04/24/22 06:38 36.4 C L 99 H 20 135/95 94 Room Air 04/24/22 04:00 36.3 C L 103 H 20 155/93 H 92 Room Air 04/24/22 00:55 99 H 16 94 Room Air He is awake alert and oriented x3 although at times he has some difficulty finding words and a little bit of slurred speech HEENT: Markedly reduced carotid upstrokes no evidence of carotid bruits Lungs: Clear to auscultation bilaterally no rales rhonchi or wheezing Heart: Tachycardic but regular no appreciable murmurs or rubs it was hard to appreciate a gallop given his tachycardia Abdomen: Soft nontender distended positive bowel sounds Extremities: no c/c/e Psychiatric:affect appeared better IMPRESSIONS: 1. Acute on chronic systolic heart failure secondary to nonischemic cardiopathy 2. Nonischemic cardiomyopathy likely secondary to alcohol abuse 3. History of mitral valve repair with quadrangular resection of the P2 component of the posterior mitral valve leaflet with a 30 mm ring July 2014 at [facility] 4. Previous echocardiogram in 2019 suggesting EF in the range of 50 to 55% 5. Echocardiogram this admission suggesting severe biventricular dysfunction, mean gradient across the mitral valve for plate repair of 7 mmHg with at least mild mitral regurgitation 6. History of cardiac catheterization preoperatively with a 40% mid LAD lesion and an ostial 70% D2 lesion and a medium vessel 7. History of atrial flutter ablation October 2014 8. Alcohol abuse 9. COPD 10. Depression We discussed the need for low-salt diet and daily weights. I reviewed foods that he cannot eat at home unfortunately he is cooking for himself and as a male individual who has to cook for himself they tend to get tremendous amounts of salt and processed foods. We discussed avoiding these types of foods. He will need heart failure education both here in the hospital as well as an outpatient. His blood pressure has improved his urine output has been quite brisk after 60 mg total of IV furosemide yesterday. We will increase his heart failure regimen with a total of 50 mg of Toprol daily, increasing his Entresto to the middle dose, and he should go home on Lasix 40 mg daily. He will need a BMP in a week along with a magnesium level. We will arrange for him to be seen in the office in the next 7 to 10 days. He has had no further runs of nonsustained VT on the coil maker he has occasional PVCs. Hopefully with pushing his beta-blockers and improving his heart failure status his ventricular ectopy will improve. With an EF in the range of 20% there is a risk of sudden cardiac he is not going to wear a LifeVest.
[2022-04-24] MEDS ORDERED: METOPROLOL SUCC 25MG EXT REL TAB PO ONE (12:15)
[2022-04-24] MEDS ORDERED: VALSARTAN/SACUBITRIL 26/24MG TAB PO ONE (12:15)
[2022-04-24] MEDS: FUROSEMIDE 40 MG TAB PO SCH (12:53)
[2022-04-24] MEDS: ENOXAPARIN INJ 40 MG/0.4 ML SYR SQ SCH (19:38)
[2022-04-24] MEDS: VALSARTAN/SACUBITRIL 51/49 MG TAB PO SCH (19:40)
--- NOTE | 2022-04-24 20:24 | Hospitalist Progress Note ---
Date of Service April 24, 2022 Assessment & Plan (1) Acute on chronic systolic heart failure: Plan: SIGNIFICANTLY improved volume status - approaching euvolemia. echo with severe systolic CHF - EF 20-25%. etiology - alcoholic cardiomyopathy? ischemic cardiomyopathy possible ? --> defer heart cath to cardiology. no evidence of significant valvular disease. stop IV diuresis with lasix BID. change to PO lasix 40mg daily. cardiology increased doses of both metoprolol succinate + Entresto BID. needs full abstinence from etoh. cont thiamine 200mg BID. cont K + mag supplements. appreciate Dr Collins's consultation from [facility]. (2) Mitral regurgitation: Plan: s/p repair in 2014 at [facility] [place]. mild MR on echo this admission. (3) Hypertension: Plan: controlled with metoprolol succinate + Entresto. (4) Alcohol abuse: Plan: Patient reports drinking about a half of 1/5 of whiskey once daily. At high risk of etoh withdrawal. Remains on gabapentin taper. Symptom-triggered ativan per AWSS protocol. None neededd thus far. Cont Folate and thiamine supplementation. (5) Depression with anxiety: Plan: Cont lexapro 10mg (6) Elevated troponin: Plan: 2nd to myocardial demand ischemia in setting of #1. No evidence of ACS. (7) History of mitral valve repair: Plan: 2014 at [facility] [place]. only mild MR on echo this admission. 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 - and wants to get home to tend to them he feels MUCH better dyspnea resolved LE edema nearly resolved no orthopnea or chest pain tele overnight - NSR; couple runs of NSVT earlier yesterday Review of Systems Review of Systems: gen - feels good, eating well cv - no cp, no orthopnea, no PND pulm - no [facility] GI - no nausea/emesis Physical Exam 2 Physical Exam: gen - thin, sitting in chair, NAD neck - JVD much improved mouth - MMM heart - RRR, s1 s2, 1-2/6 systolic murmur LLSB -> axillae lungs - CTA b/l abd - soft NT ND BS+ ext - <1+ edema right ankle, none on left neuro - no tremors; no signs of DTs Results & Data Results & Data ([facility]) Vital Signs (Past 12 Hours) Vital Signs Temp Pulse Pulse Resp BP Pulse Ox O2 Del Method 04/24/22 18:21 36.5 C 88 18 114/76 96 Room Air 04/24/22 15:44 36.4 C L 88 18 116/80 98 Room Air 04/24/22 15:25 94 H 04/24/22 11:48 36.6 C 78 18 105/67 91 Room Air Laboratory Results Laboratory Results - last 24 hr 04/24/22 06:32 Sodium 135 L Potassium 3.8 Chloride 100 Carbon Dioxide 27 Anion Gap 8 BUN 21 Creatinine 1.05 Est Cr Clr Drug Dosing 67.3 Est GFR ( Amer) 85.3 Est GFR (Non-Af Amer) 73.6 BUN/Creatinine Ratio 20.0 Glucose 95 Calcium 8.7 Magnesium 1.7 PG Care Time/CCT Total # of Minutes Spent Total Time Spent with Patient: Total time spent is greater than 50% in coordination of care (as documented) at patient's floor/unit and/or counseling patient: Coding Level of Care Code 41623 SUB INP/OBS CARE 2/35MIN Diagnoses Acute on chronic systolic heart failure I50.23 Mitral regurgitation I34.0 Hypertension I10 Alcohol abuse F10.10 Depression with anxiety F41.8 Elevated troponin R77.8 History of mitral valve repair Z98.890
[2022-04-24] MEDS ORDERED: MELATONIN 3 MG TAB PO SCH (21:00)
[2022-04-24] MEDS: MAGNESIUM OXIDE 400 MG TAB PO SCH (21:29)
[2022-04-24] MEDS ORDERED: GABAPENTIN 600 MG TAB PO SCH (21:45)
[2022-04-25 07:37] LABS: BUN Creatinine Ratio 26.3 (10-20); Calcium 8.7 mg/dl (8.5-10.1); Creatinine Clr Calc Pharmacy 74.4 ml/min; Est GFR (African American) 96.3 ml/min; Est GFR (Non-African American) 83.1 ml/min; Magnesium 1.9 mg/dl (1.7-2.4); Potassium 4.6 mmol/L (3.5-5.1)
[2022-04-25] MEDS: ESCITALOPRAM OXALATE 10 MG TAB PO SCH (07:58)
[2022-04-25] MEDS: ASPIRIN 81 MG ECTAB PO SCH (07:58)
[2022-04-25] MEDS: FOLIC ACID 1 MG TAB PO SCH (07:59)
[2022-04-25] MEDS: FUROSEMIDE 40 MG TAB PO SCH (07:59)
[2022-04-25] MEDS: MAGNESIUM OXIDE 400 MG TAB PO SCH (08:00)
[2022-04-25] MEDS: THIAMINE HCL 100 MG TAB PO SCH (08:00)
[2022-04-25] MEDS: POTASSIUM CHLORIDE CRTAB 20 MEQ TABCR PO SCH (08:00)
[2022-04-25] MEDS: VALSARTAN/SACUBITRIL 51/49 MG TAB PO SCH (08:00)
[2022-04-25] MEDS ORDERED: METOPROLOL SUCC 50MG EXT REL TAB PO SCH (09:00)
--- NOTE | 2022-04-25 09:18 | Cardiology Progress Note ---
Date of Service April 25, 2022 Assessment & Plan (1) Acute on chronic systolic heart failure: Plan IMPRESSIONS: 1. Acute on chronic systolic heart failure secondary to nonischemic cardiopathy 2. Nonischemic cardiomyopathy likely secondary to alcohol abuse 3. History of mitral valve repair with quadrangular resection of the P2 component of the posterior mitral valve leaflet with a 30 mm ring July 2014 at [facility] 4. Previous echocardiogram in 2019 suggesting EF in the range of 50 to 55% 5. Echocardiogram this admission suggesting severe biventricular dysfunction, mean gradient across the mitral valve for plate repair of 7 mmHg with at least mild mitral regurgitation 6. History of cardiac catheterization preoperatively with a 40% mid LAD lesion and an ostial 70% D2 lesion and a medium vessel 7. History of atrial flutter ablation October 2014 8. Alcohol abuse 9. COPD 10. Depression Mr. Jose feels that he is back to his baseline today. I reiterated to him that he needs to maintain a diet of less than 2000 mg of sodium per day. He notes that his daughter is a business performance specialist and planning to help him. We also discussed daily weights and to report weight gain of 2lbs in 24 hours or 5lbs in a week. He should bring a list of his weights to his follow up appointment at the cardiology clinic. His blood pressure has improved and he appears euvolemic. He is tolerating mid range Entresto and Toprol, he should go home on Lasix 40 mg daily. He will need a BMP in a week along with a magnesium level. We will arrange for him to be seen in the office in the next 7 to 10 days. He did not have any runs of VT overnight but did over the weekend. Given his EF in the range of 20% conveys a risk of sudden cardiac , a defibrillator vest is recommended. He is agreeable. Case management is going to help organize this for discharge. He will need to abstain from alcohol going forward. Defer to hospitalist on whether patient needs a gabapentin or Librium taper for home. Admission and Anticipated Discharge Date Admission Date: April 22, 2022 Subjective Mr. Jose is feeling well. He denies sob, chest pain, or palpitations. He feels he is breathing back at his baseline. His edema has resolved. He is looking forward to going home. No events on telemetry overnight. SR in 90s today Review of Systems Review of Systems: All systems reviewed & are unremarkable except as noted in HPI & below Physical Exam Constitutional: WD/WN, vitals as above Respiratory: normal respiratory effort, lungs clear to auscultation Cardiovascular: RRR, no murmur, no edema Skin: no rashes, warm and dry Neurologic: moves all extremities and awake Psychiatric: A+Ox3, euthymic affect Results & Data ([facility]) Vital Signs (Past 12 Hours) Vital Signs Temp Pulse Pulse Resp BP Pulse Ox O2 Del Method 04/25/22 07:43 98 H 04/25/22 07:06 36.4 C L 82 16 110/64 92 Room Air 04/25/22 03:46 36.5 C 84 16 117/62 94 Room Air 04/24/22 21:58 93 H 04/24/22 23:25 36.3 C L 93 H 18 108/73 97 Room Air
--- NOTE | 2022-04-25 14:49 | Discharge Summary ---
Date of Service date of admission - April 22, 2022 date of discharge - April 25, 2022 Admission HPI Per Admitting Provider Carlton Jose is a 67 y/o male with a past medical history of alcohol use disorder, heart failure secondary to severe MR s/p repair in 2014, atrial flutter, hypertension, depression, and anxiety who presents today with shortness of breath. He initially presented last night with 1 week worth of shortness of breath and building chest pressure. Troponin was elevated at 45, he was hypertensive with mild tachycardia, and EKG had shown rate of 107 with LVH wit hout any ischemic changes. 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 He called his turntable engineer, Dr. Norman again this morning who recommended he return to the ED for further evaluation and likely admission. Today patient states his chest pain has resolved, has not had any since last evening but is still continuing to be short of breath and has had some swelling in his bilateral legs. He has not had any fever or chills, cough, congestion, further chest pain or palpitations. He does recall having what sounds like a viral URI 2 months ago but has recovered from this since. Patient has a history of heart failure and valve replacement in 2014 at [place], had originally followed with Dr. Collins more closely but over the past 3 years have had some personal life problems and unfortunately has not been able to follow-up with cardiology in 3 years he estimates. He has not been on any medications besides a daily aspirin for some time. On presentation today he is hypertensive and mildly tachycardic, 93% on room air and was placed on 2 L NC. Afebrile. Labs notable for BNP of 2930, troponin 43.8. His last 3 troponin over the past 24 hours have been [id number]. Renal function at baseline, no electrolyte abnormalities or elevated LFTs. Without leukocytosis or left shift. His CXR shows cardiomegaly with pulmonary vascular congestion and small pleural effusions. Patient will be admitted for diuresis secondary to presumed heart failure, fu rther work-up to include cardiology consultation. Principal Diagnosis Acute on chronic systolic CHF Alcohol abuse Discharge Exam gen - thin, sitting in chair, NAD neck - JVD resolved mouth - MMM heart - RRR, s1 s2, 1-2/6 systolic murmur LLSB -> axillae lungs - CTA b/l abd - soft NT ND BS+ ext - no edema b/l feet/ankles; pulses 2+ b/l neuro - no tremors; no signs of DTs Discharge Data Allergies Allergy/AdvReac Type Severity Reaction Status Date / Time aspirin [From Percodan] Allergy Verified 04/26/22 10:30 oxycodone [From Percodan] Allergy Verified 04/26/22 10:30 Consultations [facility] - Olman Collins DO Behavioral Health Liaison Procedures Performed Echocardiogram - Ordered Studies Chest X-Ray 04/22/22 14:15 TWO VIEW CHEST CLINICAL HISTORY: Atypical chest pain. Dyspnea. FINDINGS: PA and lateral chest radiographs are compared to study dated 04/21/2022 and correlated with chest CT dated 12/06/2012. The patient is status post midline sternotomy and cardiac valve surgery. The heart is enlarged noting atherosclerotic calcification of the thoracic aorta. There is pulmonary vascular congestion. Chronic interstitial thickening similar to previous. There are small pleural effusions with bibasilar scarring/atelectasis. There is no pneumothorax. The skeletal structures are osteopenic. The bony thorax appears intact. IMPRESSION: 1. Cardiomegaly with pulmonary vascular congestion. 2. Small pleural effusions. ACT 112: Negative or not required by law. Electronically signed by: Shen Aguilar M.D. 04/22/2022 2:42 PM Hospital Course (1) Acute on chronic systolic heart failure: SIGNIFICANTLY improved volume status following diuresis. Appeared euvolemic at time of discharge. Echo with severe systolic CHF - EF 20-25%. etiology - alcoholic cardiomyopathy? ischemic cardiomyopathy possible ? --> defer heart cath to cardiology if felt necessary. no evidence of significant valvular disease contributing to his CHF. Was seen by [facility], Dr Olman Collins. The following meds were instituted and titrated - 1. metoprolol succinate 50mg daily 2. Entresto 49-51mg - 1 PO BID 3. lasix 40mg daily 4. mag/K supplementation He was given written CHF instructions. He was counseled to abstain fully from alcohol, limit total fluid intake to no more than 1500cc/day, and limited salt to no more than 2000mg in 24 hours. He was given a course of thiamine 200mg BID and asked to complete 30 days of such. Finally, given that his EF was severely low <30%, a Life Vest was ordered for the patient. The patient was instructed on its use by the device radio electrician. (2) Mitral regurgitation: s/p repair in 2014 at [facility] [place]. mild MR on echo this admission. (3) Hypertension: controlled with metoprolol succinate + Entresto. (4) Alcohol abuse: Patient reports drinking about a half of 1/5 of whiskey daily. He was placed on a gabapentin taper to prevent etoh withdrawal. Symptom-triggered ativan per AWSS protocol was ordered but he did not require an y benzos. He will complete a gabapentin taper at discharge. He will complete a 30-day course of thiamine supplementation. He was asked to abstain from alcohol in light of his new-onset cardiomyopathy. He was encouraged to speak with his PCP about resources in the community to help him maintain sobriety. (5) Depression with anxiety: He was seen by the Behavioral Health Liaison who recommended resumption of lexapro 10mg daily. He had previously taken this in the past. (6) Elevated troponin: 2nd to myocardial demand ischemia in setting of #1. No evidence of ACS. (7) History of mitral valve repair: 2015 at [facility] [place]. only mild MR on echo this admission. (8) NSVT (nonsustained ventricular tachycardia): Multiple brief runs were seen on telemetry while here. Again he was fitted with a LifeVest prior to discharge given his severely depressed EF of 20-25%. If EF remains <30% over time he will need ICD placement. Total Time Total Time Spent Total Time Spent (In Minutes): 35 Discharge Plan Discharge Items Patient Disposition: Home - Self-Care Reason For Visit: Congestive Heart Failure Discharge Diagnosis: 1. Severe congestive heart failure 2. Mitral regurgitation (mild) 3. history of mitral valve repair 4. alcohol use Activity: As commented below Activity Comment: light activities only; no heavy exertional activities Lifting Comment: no more than 15 pounds (bowling ball weight) Non-emergency contact: Primary Care Provider and Senior Shipping Clerk Call non-emergency contact if: you have any medication questions and your symptoms worsen Follow-up/Referrals: Rosemarie Lopes CRNP [Primary Care Provider] - 05/02/22 10:30 am (5-7 days ) Olman Collins DO [Physician] - (7-10 days for congestive heart failure ) Diet: Low Sodium (2gm) Fluids: 1500ml (6 cups) Addtl Attending Provider Instructions: Mr Jose, You were admitted to the hospital with shortness of breath. This was due to new-onset congestive heart failure. With congestive heart failure fluid builds up in the lungs ("congestive"). It can also enter your abdomen and legs. You improved nicely with diuretics (furosemide). You underwent an echocardiogram. Your heart pumping value, known as the ejection fraction, was 20-25% (normal is >50%, but most people are about 60%). Your previously repaired mitral valve is overall working ok. Dr Olman Collins from [facility] saw you in consult. He made recommendations for your medications as follows - 1. furosemide 40mg once daily each morning. This is your water pill/diuretic to keep fluid from building up. Start this tomorrow morning. 2. metoprolol succinate 50mg once daily each morning. This is for your heart. Start his tomorrow morning. 3. Entresto 1 tablet twice daily. We called your pharmacy and the fwu-er-qusqlp cost is hundreds of dollars for this medication. Dr Collins's office has a 30-day "free card" that you can quill picking machine operator TOMORROW. When you go to the pharmacy please bring the 30-day free card with you to get the Entresto at no cost. Dr Collins also has an application for assistance to help pay for this medication on a longer term basis. You can get the application tomorrow when you stop by Dr Collins's office. 4. take a potassium and magnesium supplement; start these tomorrow. 5. to help control any lingering symptoms of alcohol withdrawal please take Gabapentin as follows - * TONIGHT, 04/25 - gabapentin 400mg x 1 * 04/26 PM - gabapentin 300mg x 1 * 04/27 PM - gabapentin 200mg x 1 * 04/28 PM - gabapentin 100mg x 1 6. take thiamine 200mg twice daily for 30 days (this is vitamin B1). 7. please restart your Escitalopram 10mg once daily; start this tomorrow morning 8. please use and wear your LifeVest as instructed by the company accounting representative. 9. please do everything you can to remain abstinent from alcohol. If you are having difficulty staying alcohol-free please talk to your family doctor about resources in the community to help you maintain sobriety. 10. limit salt intake to no more than 2000mg (2 grams) in a 24 hour period. 11. limit total fluid intake to no more than 1500ml (1.5 liters) in a 24 hour period. 12. check your weight on the same scale each and every morning after using the toilet. Write these numbers down in a notebook. If you gain more than 2-3 pounds over 1-2 days just assume this is fluid weight from your congestive heart failure and call Dr Collins's office for instructions right away. 13. stop all ibuprofen use; ok to take erot-mrw-dielkua tylenol for aches/pains. 14. ok to use usqd-izw-gjubxza voltaren gel for your knee arthritis - you can use 4 grams to either knee up to 4 times a day. Follow-up - see separate section Return to [facility] if - * you are having worsening shortness of breath * you have chest pains * you are dizzy or lightheaded * you are concerned about excessive fluid build-up from your heart * any other concerns It was our pleasure to care for you! Dr Rodrigues Addtl Electric Trucker Provider Instructions: Call 911 and go to the Emergency Room if: * You have tightness or pain in your chest that does not go away with rest or Nitroglycerin * You are very short of breath even with rest Call your doctor if any of the following symptoms or problems start or get worse: * Shortness of breath or difficulty breathing * Wake up at night short of breath * Chest pain * Cough * Swelling of your hands, fee, or legs * More fatigued or tired with your normal activity * Palpitations - sudden fast heart beats WEIGHT * Weigh yourself every morning after using the bathroom. * Use the same scale. * Wear the same amount of clothing. * Write your weight down on your chart. * Call your doctor if you gain more than 2-3 pounds in 1-2 days. MEDICATIONS * Use this discharge instruction sheet for instructions. * Take your medications at the time your doctor ordered. * Do not skip a dose of your medicines. * If you miss a dose of medicine, take as soon as possible, but DO NOT DOUBLE A DOSE. * Read your medicine information when you get home. * Know all of the side effects of your medicine. * Call your doctor's office if you have any side effects. * Be sure all of your doctors know what medicine and herbs you take (including cold, flu, and herbal medicine). * Pain Medicine: If you do not get relief from your pain, please call your doctor for help. Take the following with you to your follow-up doctor appointments: * Weight Chart * Medication List * List of questions Do not drink excessive alcohol, beer or wine. Pending Studies at Discharge: No Stand-Alone Forms: My [facility], Smoking Cessation Medications and DC Order Prescriptions: New furosemide 40 mg Tablet 40 mg PO QAM Qty: 30 5RF metoprolol succinate 50 mg Tablet Extended Release 24 Hr 50 mg PO QAM Qty: 30 5RF thiamine HCl (vitamin B1) 100 mg Tablet 200 mg PO BID 30 Days Qty: 120 0RF magnesium oxide 400 mg (241.3 mg magnesium) Tablet 400 mg PO QAM Qty: 30 2RF escitalopram oxalate 10 mg Tablet 10 mg PO QAM Qty: 30 5RF Entresto 49-51 mg Tablet 1 tab PO BID Qty: 60 5RF gabapentin 100 mg capsule 100 mg PO .HS as directed Qty: 10 0RF Rx Instructions: start PM of 04/25/22: 4 capsules day #1, 3 capsules day #2, 2 capsules day #3, 1 capsule day #4. potassium chloride 10 mEq tablet extended release 10 meq PO DAILY Qty: 30 2RF Continued coenzyme Q10 [CoQ-10] 30 mg Capsule 30 mg PO DAILY aspirin 81 mg Tablet,Delayed Release (Dr/Ec) 81 mg PO DAILY Discontinued ibuprofen 200 mg Tablet 600 mg PO AMPM ibuprofen [Excedrin IB] 200 mg Tablet 200 mg PO BID PRN (Reason: Pain) Discharge Orders: Discharge Order (Routine); Ordered 04/25/22 Ordered By: Adrian Christiansen/Other Patient Handouts: What Is Heart Failure, Heart Failure Flare Up Signs, Heart Failure: Tracking Your Weight Admission Data Admit Date/Time: 04/22/22 16:22 Attending Provider: Adrian Rodrigues Admit Provider: Dawson Lopez Primary Care Provider: Rosemarie Lopes Other Providers: Dawson Lopez ; Olman Collins Other Interventions: Discharge Summary Assessment (RN) Last Done: 04/25/22 16:40 Coding Level of Care Code HOSP INP/OBS DISCH >30 MIN Diagnoses Acute on chronic systolic heart failure I50.23 Mitral regurgitation I34.0 Hypertension I10 Alcohol abuse F10.10 Depression with anxiety F41.8 Elevated troponin R77.8 History of mitral valve repair Z98.890 NSVT (nonsustained ventricular tachycardia) I47.29
[2022-04-25] MEDS ORDERED: GABAPENTIN 400 MG CAP PO SCH (21:45)
[2022-04-26] MEDS ORDERED: GABAPENTIN 100 MG CAP PO SCH (21:45)
== END 2022-04-25 17:43 | disposition home or self-care (01) | DRG 314 ==
LOC: ED 13:58 → SUATTDRO 16:22 → 2N 16:22
DX: Z63.5 Disruption of family by separation and divorce; I42.6 Alcoholic cardiomyopathy; Z91.198 Patient's noncompliance with other medical treatment and regimen for other reason; F17.210 Nicotine dependence, cigarettes, uncomplicated; Z88.5 Allergy status to narcotic agent; I34.0 Nonrheumatic mitral (valve) insufficiency; F41.8 Other specified anxiety disorders; Z86.79 Personal history of other diseases of the circulatory system; Z79.82 Long term (current) use of aspirin; Z98.890 Other specified postprocedural states; Z63.8 Other specified problems related to primary support group; Z88.6 Allergy status to analgesic agent; I10 Essential (primary) hypertension; I24.8 Other forms of acute ischemic heart disease; Z79.899 Other long term (current) drug therapy; F10.10 Alcohol abuse, uncomplicated; I50.23 Acute on chronic systolic (congestive) heart failure; I47.20 Ventricular tachycardia, unspecified

== ENCOUNTER 2024-07-03 19:47 | Observation (INO) ==
[2024-07-03 20:41] LABS: Basophils # (auto) 0.04 K/uL (0.00-0.20); Basophils % (auto) 0.3 %; Eosinophils # (auto) 0.02 K/uL (0.00-0.50); Eosinophils % (auto) 0.2 %; Hematocrit (blood only) 41.9 % (42.0-52.0); Hemoglobin 14.3 g/dl (14.0-18.0); Immature Granulocytes # (auto) 0.08 K/uL (0.01-0.20); Immature Granulocytes % (auto) 0.7 %; Lymphocytes # (auto) 1.15 K/uL (1.20-3.40); Lymphocytes % (auto) 9.7 %; Mean Corpuscular Hemoglobin 34.5 pg (25.0-34.0); Mean Corpuscular Hgb Conc 34.1 g/dL (32.0-36.0); Mean Platelet Volume 9.5 fL (9.4-12.4); Monocytes # (auto) 1.41 K/uL (0.11-0.59); Monocytes % (auto) 11.9 %; Neutrophils # (auto) 9.11 K/uL (1.40-6.50); Neutrophils % (auto) 77.2 %; Platelet Count 321 K/uL (130-400); RDW Coefficient of Variation 13.7 % (11.5-14.5); Red Blood Count 4.15 M/uL (4.70-6.10); White Blood Count 11.81 K/ul (4.8-10.8)
[2024-07-03 20:53] LABS: Alanine Aminotransferase 38 U/L (7-52); Albumin Globulin Ratio 1.1 (0.9-2); Albumin Level 4.1 gm/dl (3.4-5.0); Alkaline Phosphatase 124 U/L (34-104); Anion Gap 8 (3-11); Aspartate Aminotransferase 43 U/L (13-39); BUN Creatinine Ratio 11.1 (10-20); Bilirubin,Total 1.3 mg/dl (0.2-1.0); Blood Urea Nitrogen 19 mg/dl (6-23); Calcium 9.7 mg/dl (8.6-10.3); Carbon Dioxide 32 mmol/L (21-32); Chloride 94 mmol/L (98-107); Creatine Kinase 84 U/L (30-223); Globulin 3.8 gm/dl (2.5-4.0); Glucose 105 mg/dl (70-99(Fasting)); Potassium 4.2 mmol/L (3.5-5.1); Sodium 134 mmol/L (136-145); Total Protein 7.9 gm/dl (6.0-8.3)
[2024-07-03] MEDS: ONDANSETRON INJ 2 MG/ML 2 ML VIAL IV STA (20:55)
[2024-07-03] MEDS: MoRPHine SULFATE 4 MG/ML 1 ML CARP\\VIAL IV STA (20:58)
--- NOTE | 2024-07-03 21:04 | Emergency Department Note ---
ED Provider Note History of Present Illness Chief Complaint: Knee Injury/Pain Stated Complaint: CATTLE GOT HIS KNEE, IN A LOT OF PAIN Time Seen by Provider: 07/03/24 19:58 Source: patient Mode of arrival: ambulatory Limitations: no limitations Patient is a 69-year-old male who presents to the emergency department with complaints of right knee pain. 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 Patient denies any other injury from the incident, denies the cow stepped on any other part of him and notes that his pain is just in his right leg. Patient has significant swelling noted to the right knee. Home Medications Medication Instructions Recorded Confirmed Type aspirin 81 mg tablet,delayed 81 mg PO DAILY 04/21/22 07/03/24 History release escitalopram oxalate 10 mg tablet 10 mg PO QAM #30 tabs 04/25/22 07/03/24 Rx furosemide 40 mg tablet 40 mg PO QAM #30 tabs 04/25/22 07/03/24 Rx magnesium oxide 400 mg (241.3 mg 400 mg PO QAM #30 tabs 04/25/22 07/03/24 Rx magnesium) tablet metoprolol succinate 50 mg 50 mg PO QAM #30 tabs 04/25/22 07/03/24 Rx tablet,extended release 24 hr sacubitril 49 mg-valsartan 51 mg 1 tab PO BID #60 tabs 04/25/22 07/03/24 Rx tablet (Entresto) potassium chloride 10 mEq 10 meq PO DAILY #30 tabs 08/31/22 07/03/24 Rx tablet,extended release coenzyme Q10 30 mg capsule 30 mg PO DAILY 07/03/24 07/03/24 History gabapentin 100 mg capsule 100 mg PO HS 07/03/24 07/03/24 History Allergies Allergy/AdvReac Type Severity Reaction Status Date / Time oxycodone [From Percodan] Allergy Unknown Unknown Verified 07/03/24 22:11 Past Med/Surg History Problem List (Updated 07/04/24 @ 15:33 by Ward Villalobos DO) Patella fracture Erythema of lower extremity Fracture of right tibial plateau Rhus dermatitis Chronic systolic CHF (congestive heart failure) S/P ICD (internal cardiac defibrillator) procedure Nonischemic cardiomyopathy NSVT (nonsustained ventricular tachycardia) Partial thickness burn of ankle Effusion of elbow joint, left Second degree burn of ankle Left inguinal hernia Foot pain, left Benign prostatic hyperplasia with urinary obstruction (Acute) Inhibited sexual excitement (Acute) Male erectile disorder (Acute) Urinary frequency (Acute) Urinary urgency (Acute) Shoulder pain, acute Abdominal pain (Acute) Medical History Acute on chronic systolic heart failure Depression with anxiety Hypertension Asthma Alcohol abuse Mitral regurgitation Surgical History History of mitral valve repair Hx of heart surgery History of back surgery History of ankle surgery Family History Brother Diabetes Mother Cancer Social History Smoking Status: Unknown if ever smoked Tobacco Type: Cigarettes Cigarettes Per Day: 1/2 pack daily states he stopped 3 days ago; Hx Alcohol Use: Yes Alcohol type: beer Hx Substance Use: No Preferred Language: Welsh Communication Ability: Impaired Communication Ability Comment: pt states he can read enough to get by but is not a very good reader Pit Shoveler Required: No Beliefs That Will Affect Care: None marital status: Legally Current Living Situation: Alone 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 Feels Safe at Home: Yes Assistive Devices: Crutches and Walker Physical Exam Vital Signs Vital Signs - 24 hr 07/03/24 19:50 07/03/24 20:05 07/03/24 20:19 Temperature 37.6 C H Temperature Source Temporal Artery Scan Pulse Rate 108 H 112 H Pulse Rate [Right Finger] 109 H Pulse Rhythm [Right Finger] Pulse Strength [Right Finger] Respiratory Rate 18 17 Respiratory Effort / Characteristics Non-Labored Spontaneous Non-Labored Spontaneous Respiratory Depth Normal Normal Respiratory Pattern Regular Regular Blood Pressure 174/98 H Blood Pressure [Right Arm] 166/102 H Blood Pressure Mean 123 Blood Pressure Mean [Right Arm] 123 Blood Pressure Position [Right Arm] Lying Pulse Oximetry 99 98 Oxygen Delivery Method Room Air Room Air Oxygen Flow Rate Sepsis Recent Fever Within 48 Hours No Sepsis New/Unexplained Change in Mental Status N/A Sepsis Action Taken by Nursing No Action Required 07/03/24 22:00 07/03/24 23:59 07/04/24 00:00 Temperature Temperature Source Pulse Rate 117 H Pulse Rate [Right Finger] 117 H 120 H Pulse Rhythm [Right Finger] Regular Pulse Strength [Right Finger] Normal Respiratory Rate 23 18 Respiratory Effort / Characteristics Non-Labored Spontaneous Non-Labored Spontaneous Respiratory Depth Normal Normal Respiratory Pattern Regular Regular Blood Pressure Blood Pressure [Right Arm] 155/103 H 176/108 H Blood Pressure Mean Blood Pressure Mean [Right Arm] 120 130 Blood Pressure Position [Right Arm] Lying Lying Pulse Oximetry 95 96 Oxygen Delivery Method Oxymask Oxymask Oxygen Flow Rate 3 Sepsis Recent Fever Within 48 Hours Sepsis New/Unexplained Change in Mental Status Sepsis Action Taken by Nursing VITAL SIGNS - Vital signs and nursing notes were reviewed. GENERAL -69-year-old male appearing his stated age and in noticeable discomfort throughout the exam. Patient's family members at bedside. MUSCULOSKELETAL -patient presents with significant edema to his right knee, as well as ecchymosis and some erythema. Increased tenderness to palpation appreciated over the right knee. Decreased strength appreciated secondary to patient discomfort. Limited range of motion due to discomfort. NEUROLOGIC/VASCULAR - Neurovascularly intact distally with +3/5 dorsalis pedis pulses palpated bilaterally. Intact sensation to light and sharp touch appreciated distally. Course Administered Medications Acetaminophen (Acetaminophen 500 Mg Tab) 1,000 mg PO TID [facility] Stop: 08/03/24 08:59 Last Admin: 07/04/24 14:11 Dose: 1,000 mg Documented By: Admin: 07/04/24 10:02 Dose: 1,000 mg Documented By: ABBIE Aspirin (Aspirin 81 Mg Ectab) 81 mg PO DAILY [facility] Stop: 08/03/24 08:59 Last Admin: 07/04/24 09:19 Dose: 81 mg Documented By: ABBIE Escitalopram Oxalate (Escitalopram Oxalate 10 Mg Tab) 10 mg PO QAM [facility] Stop: 08/03/24 08:59 Last Admin: 07/04/24 09:22 Dose: 10 mg Documented By: ABBIE Famotidine (Famotidine 20 Mg Tab) 20 mg PO QAM [facility] Stop: 08/03/24 10:14 Last Admin: 07/04/24 10:20 Dose: 20 mg Documented By: ABBIE Folic Acid (Folic Acid 1 Mg Tab) 1 mg PO QAM [facility] Stop: 08/03/24 08:59 Last Admin: 07/04/24 09:22 Dose: 1 mg Documented By: ABBIE Furosemide (F[facility]semide 40 Mg Tab) [facility] Stop: 08/03/24 08:59 Last Admin: 07/04/24 09:23 Dose: 40 mg Documented By: ABBIE Magnesium Oxide (Magnesium Oxide 400 Mg Tab) 400 mg PO QAM [facility] Stop: 08/03/24 08:59 Last Admin: 07/04/24 09:20 Dose: 400 mg Documented By: ABBIE Metoprolol Succinate (Metoprolol Succ 50mg Ext Rel Tab) [facility] Stop: 08/03/24 08:59 Last Admin: 07/04/24 09:21 Dose: 50 mg Documented By: ABBIE Morphine Sulfate (Morphine Sulfate 4 Mg/Ml 1 Ml Carp\Vial) 4 mg IV Q3H PRN PRN Reason: Pain (6,7,8,9,10) Stop: 07/18/24 01:43 Last Admin: 07/04/24 15:07 Dose: 4 mg Documented By: Admin: 07/04/24 09:02 Dose: 4 mg Documented By: Admin: 07/04/24 05:35 Dose: 4 mg Documented By: MAHESH Multivitamins (Multivitamin Tab) 1 tab PO [facility] Stop: 08/03/24 08:59 Last Admin: 07/04/24 09:21 Dose: 1 tab Documented By: ABBIE Polyethylene Glycol (Polyethylene (Miralax) 17 Gm Pack) 17 gm PO DAILY [facility] Stop: 08/03/24 14:59 Last Admin: 07/04/24 15:18 Dose: 17 gm Documented By: DAKSHA Thiamine HCl (Thiamine Hcl 100 Mg Tab) [facility] Stop: 08/03/24 08:59 Last Admin: 07/04/24 09:20 Dose: 100 mg Documented By: ABBIE Discontinued Medications Miscellaneous (Patient's Height &/Or Weight Needed) 1 each N/A ONE STA Stop: 07/04/24 04:27 Last Admin: 07/04/24 05:31 Dose: Not Given Documented By: MAHESH Morphine Sulfate (Morphine Sulfate 4 Mg/Ml 1 Ml Carp\Vial) 4 mg IV NOW STA Stop: 07/03/24 20:10 Last Admin: 07/03/24 20:58 Dose: 4 mg Documented By: AG Morphine Sulfate (Morphine Sulfate 2 Mg/Ml Carp) 2 mg IV NOW STA Stop: 07/04/24 00:48 Last Admin: 07/04/24 01:22 Dose: 2 mg Documented By: CARLIN Ondansetron HCl (Ondansetron Inj 2 Mg/Ml 2 Ml Vial) 4 mg IV NOW STA Stop: 07/03/24 20:10 Last Admin: 07/03/24 20:55 Dose: 4 mg Documented By: AG Medical Decision Making Differential Diagnosis Fracture, dislocation, ligamentous injury, muscular strain, sprain, among others Medical Records Attestation: I reviewed the patient's medical records. Home Medications was personally reviewed by me Laboratory Data Attestation: I reviewed the patient's lab results. 07/04/24 07:12 07/04/24 07:12 Lab Results 07/03/24 Range/Units 20:20 WBC 11.81 H (4.8-10.8) K/ul RBC 4.15 L (4.70-6.10) M/uL Hgb 14.3 (14.0-18.0) g/dl Hct 41.9 L (42.0-52.0) % MCV 101.0 H (80.0-100.0) fL MCH 34.5 H (25.0-34.0) pg MCHC 34.1 (32.0-36.0) g/dL RDW Std Deviation 51.0 H (36.4-46.3) fL RDW Coeff of Donna 13.7 (11.5-14.5) % Plt Count 321 (130-400) K/uL MPV 9.5 (9.4-12.4) fL Immature Gran % (Auto) 0.7 % Neut % (Auto) 77.2 % Lymph % (Auto) 9.7 % [place] % (Auto) 11.9 % Eos % (Auto) 0.2 % Baso % (Auto) 0.3 % Neut # (Auto) 9.11 H (1.40-6.50) K/uL Lymph # (Auto) 1.15 L (1.20-3.40) K/uL [place] # (Auto) 1.41 H (0.11-0.59) K/uL Eos # (Auto) 0.02 (0.00-0.50) K/uL Baso # (Auto) 0.04 (0.00-0.20) K/uL Immature Gran # (Auto) 0.08 (0.01-0.20) K/uL Sodium 134 L (136-145) mmol/L Potassium 4.2 (3.5-5.1) mmol/L Chloride 94 L (98-107) mmol/L Carbon Dioxide 32 (21-32) mmol/L Anion Gap 8 (3-11) BUN 19 (6-23) mg/dl Creatinine 1.71 H (0.6-1.4) mg/dl Est Cr Clr Drug Dosing Not Reportable eGFR 43.06 BUN/Creatinine Ratio 11.1 (10-20) Glucose 105 H (70-99(Fasting)) mg/dl Calcium 9.7 (8.6-10.3) mg/dl Total Bilirubin 1.3 H (0.2-1.0) mg/dl AST 43 H (13-39) U/L ALT 38 (7-52) U/L Alkaline Phosphatase 124 H (34-104) U/L Total Creatine Kinase 84 (30-223) U/L Total Protein 7.9 (6.0-8.3) gm/dl Albumin 4.1 (3.4-5.0) gm/dl Globulin 3.8 (2.5-4.0) gm/dl Albumin/Globulin Ratio 1.1 (0.9-2) Imaging Data Radiologist's Impression: Knee X-Ray 07/03/24 20:05 Exam(s): XR RIGHT KNEE, 1-2 views EXAM: XR Right Knee, 1 or 2 Views CLINICAL HISTORY: Reason for exam: knee pain, injury. TECHNIQUE: Frontal and/or lateral views of the right knee. COMPARISON: No relevant prior studies available. FINDINGS: Bones/joints: Osteopenia. Tricompartment osteoarthritis. Acute nondepressed fracture of the lateral tibial plateau (Schatzker type I). Large lipohemarthrosis. No dislocation. Soft tissues: Unremarkable. IMPRESSION: Acute nondepressed fracture of the lateral tibial plateau (Schatzker type I). Difficult to exclude a medial tibial plateau fracture. Consider CT evaluation. Large lipohemarthrosis. Electronically signed by: May Linn M.D. 07/03/24 21:33 PM MDM Narrative Patient is a 69-year-old male who presents to the emergency department with complaints of right knee pain. 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 Patient denies any other injury from the incident, denies the cow stepped on any other part of him and notes that his pain is just in his right leg. Patient has significant swelling noted to the right knee. Patient was evaluated by myself and findings were noted in the physical exam above. Patient was ordered IV placement, lab work, medication for pain and nausea, as well as x-rays of his femur, knee, and tib-fib. Patient's lab work resulted with a mildly elevated white blood cell count of 11.81. Patient had no indication of significant anemia with a hemoglobin of 14.3 and hematocrit of 41.9. Patient did not have any significant electrolyte imbalance. Patient had a creatinine level of 1.71. Otherwise the patient's lab work was relatively unremarkable. Patient's x-ray of his right knee was completed and interpreted by radiology to show an acute nondepressed fracture of the lateral tibial plateau. They found it difficult to exclude a medial tibial plateau fracture as well and CT evaluation was suggested. I reached out to Dr. Ward Villalobos who is on-call for orthopedics and I gave him a report on the patient's chief complaint, results of his imaging and lab work and he agreed that the patient would need CT evaluation of his right knee to rule out the medial tibial plateau fracture. Dr. Villalobos states that the patient would be not be appropriate for this facility should he also have a medial tibial plateau fracture and would require transfer. Patient was ordered a CT of his right knee at this time. Patient was handed over to Teddy Abdalla PA-C at shift change. I gave Teddy a full report on the patient's chief complaint, current status and results of his imaging and lab work. Please refer to Teddy's documentation for further evaluation and management of this patient. Attending Attestation: I Ponce Oleary MD I have reviewed the advanced practitioner's documentation and agree with the plan of care. Imaging reviewed. I accept the responsibility for the associated risk of managing the patient. I performed a substantive portion of the visit including involvement in all aspects of medical decision making. Discharge Plan Visit Data Chief Complaint: Knee Injury/Pain Stated Complaint: CATTLE GOT HIS KNEE, IN A LOT OF PAIN ED Provider: Ponce Oleary ED Midlevel Provider: Teddy Abdalla Patient Disposition: Admitted As Inpatient Discharge Instructions Interventions: ED Discharge Assessment Last Done: 07/04/24 01:42
--- NOTE | 2024-07-03 21:34 | XRay Report ---
Exam(s): XR RIGHT KNEE, 1-2 views EXAM: XR Right Knee, 1 or 2 Views CLINICAL HISTORY: Reason for exam: knee pain, injury. TECHNIQUE: Frontal and/or lateral views of the right knee. COMPARISON: No relevant prior studies available. FINDINGS: Bones/joints: Osteopenia. Tricompartment osteoarthritis. Acute nondepressed fracture of the lateral tibial plateau (Schatzker type I). Large lipohemarthrosis. No dislocation. Soft tissues: Unremarkable. IMPRESSION: Acute nondepressed fracture of the lateral tibial plateau (Schatzker type I). Difficult to exclude a medial tibial plateau fracture. Consider CT evaluation. Large lipohemarthrosis. Electronically signed by: May Linn M.D. 07/03/24 21:33 PM
--- NOTE | 2024-07-03 23:13 | Emergency Department Note ---
ED Visit Note Patient care was assumed from my colleague, MARLENE Singh, at the time of shift change. Please see Ms. Rohit's dictation for full history of present illness and emergency department course outside of this dictation. In short, the patient had injury that occurred yesterday when his cow stepped onto his right knee. X-rays have been performed and appear to show a lateral tibial plateau fracture. There is question if there is a medial injury. Dr. Villalobos of orthopedics has been consulted, and at his recommendation CT scan has been performed. CT scan was pending at the time of shift change. CT scan was reviewed by myself and radiology, and shows an old patella fracture as well as isolated lateral tibial plateau fracture. On my evaluation of the patient he remains in significant discomfort. The patient is intermittently hypoxic with sleeping and he was placed on oxymask. His discomfort is rated quite highly. Options of care were discussed with the patient and son at bedside. Patient does not feel comfortable going home as he is not able to stand or ambulate. Case was discussed with the on-call hospitalist team as escalation of care is felt to be necessary. Please see the hospitalist dictation for further patient course, plan, disposition. .
--- NOTE | 2024-07-03 23:16 | XRay Report ---
Exam(s): XR RIGHT FEMUR, 2 views EXAM: XR Right Femur, 2 Views CLINICAL HISTORY: Reason for exam: knee injury, pain. TECHNIQUE: Frontal and lateral views of the right femur. COMPARISON: No relevant prior studies available. FINDINGS: Bones/joints: No acute fracture of the femur. No dislocation. Acute nondepressed lateral tibial plateau fracture with large lipohemarthrosis. Degenerative change of the knee. Osteopenia. Soft tissues: Unremarkable. IMPRESSION: 1. No acute fracture of the femur. 2. Acute nondepressed lateral tibial plateau fracture with large lipohemarthrosis. Electronically signed by: May Linn M.D. 07/03/24 23:15 PM
--- NOTE | 2024-07-03 23:24 | XRay Report ---
Exam(s): XR RIGHT TIB/FIB, 2 views EXAM: XR Right Tibia and Fibula, 2 Views CLINICAL HISTORY: Reason for exam: knee injury. TECHNIQUE: Frontal and lateral views of the right tibia and fibula. COMPARISON: No relevant prior studies available. FINDINGS: Bones/joints: Osteopenia. Osteoarthritis of the knee. Acute nondepressed lateral tibial plateau fracture with large lipohemarthrosis. No additional tibial fracture identified. No fibular fracture identified. Soft tissues: Soft tissue swelling along the lateral malleolus. No radiopaque foreign body. IMPRESSION: 1. Soft tissue swelling along the lateral malleolus could represent ankle sprain. 2. Acute nondepressed lateral tibial plateau fracture with large lipohemarthrosis. Electronically signed by: May Linn M.D. 07/03/24 23:22 PM
--- NOTE | 2024-07-03 23:31 | CT Scan Report ---
Exam(s): CT RIGHT KNEE Without Contrast EXAM: CT Right Lower Extremity Without Intravenous Contrast, Knee CLINICAL HISTORY: Reason for exam: rigght knee pain, lateral fx, r/o medial fx. TECHNIQUE: Axial computed tomography images of the right knee without intravenous contrast. CTDI is 24.91 mGy and DLP is 490.53 mGy-cm. Automated exposure control was utilized for the study. A dose lowering technique was utilized adhering to the principles of ALARA. COMPARISON: No relevant prior studies available. FINDINGS: Bones/joints: Acute nondepressed cleavage-type fracture of the lateral tibial plateau (Schatzker type I). No other fractures. Medial tibial plateau appears intact. Tricompartment osteoarthritis. Osteopenia. Chondrocalcinosis of the menisci. Old, healed patellar fracture. Large lipohemarthrosis. No dislocation. Soft tissues: Anterior subcutaneous edema. IMPRESSION: 1. Acute nondepressed cleavage-type fracture of the lateral tibial plateau (Schatzker type I). 2. Large lipohemarthrosis. Electronically signed by: May Linn M.D. 07/03/24 23:30 PM
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
[2024-07-04 00:37] VITALS: RESP 18
[2024-07-04] MEDS: MoRPHine SULFATE 2 MG/ML CARP IV STA (01:22)
[2024-07-04] MEDS ORDERED: MoRPHine SULFATE 2 MG/ML CARP IV PRN (01:44)
[2024-07-04] MEDS ORDERED: traMADol HCL 50 MG TABLET PO PRN (01:44)
[2024-07-04] MEDS: Patient's HEIGHT &/or WEIGHT Needed STA (05:31)
[2024-07-04] MEDS: MoRPHine SULFATE 4 MG/ML 1 ML CARP\\VIAL IV PRN (05:35)
[2024-07-04] MEDS ORDERED: LORazepam 2 MG/1 ML VIAL IV PRN (07:20)
[2024-07-04 07:32] LABS: Basophils # (auto) 0.04 K/uL (0.00-0.20); Basophils % (auto) 0.3 %; Eosinophils # (auto) 0.02 K/uL (0.00-0.50); Eosinophils % (auto) 0.2 %; Hematocrit (blood only) 39.8 % (42.0-52.0); Hemoglobin 13.7 g/dl (14.0-18.0); Immature Granulocytes # (auto) 0.06 K/uL (0.01-0.20); Immature Granulocytes % (auto) 0.5 %; Lymphocytes # (auto) 1.21 K/uL (1.20-3.40); Lymphocytes % (auto) 9.8 %; Mean Corpuscular Hgb Conc 34.4 g/dL (32.0-36.0); Mean Corpuscular Volume 101.8 fL (80.0-100.0); Mean Platelet Volume 9.6 fL (9.4-12.4); Monocytes # (auto) 1.62 K/uL (0.11-0.59); Monocytes % (auto) 13.2 %; Neutrophils # (auto) 9.35 K/uL (1.40-6.50); Platelet Count 256 K/uL (130-400); RDW Coefficient of Variation 13.2 % (11.5-14.5); RDW Standard Deviation 49.5 fL (36.4-46.3); Red Blood Count 3.91 M/uL (4.70-6.10)
[2024-07-04 07:53] LABS: Albumin Level 3.7 gm/dl (3.4-5.0); Bilirubin,Total 1.7 mg/dl (0.2-1.0); Calcium 9.2 mg/dl (8.6-10.3); Potassium 4.1 mmol/L (3.5-5.1)
[2024-07-04 07:59] LABS: BUN Creatinine Ratio 14.6 (10-20); Creatinine Clr Calc Pharmacy 56.6 ml/min; Globulin 3.6 gm/dl (2.5-4.0); Total Protein 7.3 gm/dl (6.0-8.3)
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
--- OUTSIDE RECORDS SUMMARY | 2024-07-04 08:28 | External Medical Summary | Continuity of Care Document ---
Author Name Unknown Organization [facility] [address] [place] [address] ADIS MEJIA [id number] Care Team Providers Care Winch Truck Operator Name Role Phone Rosemarie Lopes Primary Care Physician [phone] [id number] Date(s): 06/21/24 - 06/21/24 [facility] [place] [address] [facility] [place] - [address], [address], [address] [place] Dinh [address] [phone] Discharge Disposition: Home or Self Care Attending Physician: DO Collins Jason D Referring Physician: DO Collins Jason D Encounter Type: [facility] [place] Allergies, Adverse Reactions, Alerts Substance Criticality Severity Reaction Reaction Severity Status hien swelling Active oxyCODONE unk Active Immunizations Given and Recorded Vaccine Date Status Refusal Reason pneumococcal 23-valent vaccine 07/15/14 Given Problem List Condition Confirmation Course Effective Dates Status H ealth Status Informant Atrial flutter Confirmed Active ICD (implantable cardioverter-defibril lator) in place Confirmed Active Congestive heart failure, unspecified 1 Confirmed Active CAD in [place] artery Confirmed Active Heart murmur Confirmed Active [...] Current every day sm oker Smoking Status Current every day li ght smoker Sex Male Sex Representation Male (finding) Patient Care team information Care Team Personnel Name: MARLENE Lopes Candace Position: Referring Member Role: Primary Care Provider Address: [address] [place] [address] Telecom: [phone] Care Team Related Persons Name: NEW GOOD Name: MARYURI GOOD Name: SULTANA BOX Name: MAX GREEN Insurance Providers Guarantor name: RUDOLPH GOOD Health Plan Information #: 1 Payer: MEDICARE Member Number: [id number] Policy Number: NA Group Number: NA Health Plan Information #: 2 Payer: MEDICARE Member Number: [id number] Policy Number: NA Group Number: NA
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
--- OUTSIDE RECORDS SUMMARY | 2024-07-04 08:28 | External Medical Summary | Continuity of Care Document ---
Author Name Unknown Organization [facility] [address] Address [address] [place] [id number] Care Team Providers Care Lithoduplicator Operator Name Role Phone Rosemarie Lopes Primary Care Physician [phone] [id number] Date(s): 03/12/24 - 03/12/24 [facility] [address] [place] [address] [facility] [address], [facility] 1 [place], [place] [phone] Encounter Diagnosis Unspecified systolic (congestive) heart failure(Final) - Discharge Disposition: Home or Self Care [...] dental and other procedures as directed, Pharmacy: [facility] Start Date: 09/23/22 Status: Ordered aspirin Start: 09/12/14 12:15:00 PM EDT, 81 mg =, PO, Daily Start Date: 09/12/14 Status: Ordered CoQ10 Start: 06/07/23 10:57:00 AM EST Start Date: 06/07/23 Status: Ordered furosemide 40 mg oral tablet Start: 01/01/24 10:32:00 AM EDT, 1 tab, PO, Daily, Disp# 90 tab, Refills: 3, Pharmacy: [facility] Start Date: 01/01/24 Status: Ordered lisinopril 20 mg oral tablet Start: 12/28/23 10:08:00 AM EDT, 1 tab, PO, Daily, Disp# 90 tab, Refills: 3, Pharmacy: [facility] Start Date: 12/28/23 Status: Ordered Metoprolol Succinate ER 50 mg oral tablet, extended release Start: 10/06/23 3:01:00 PM EDT, 1.5 tab, PO, qhs, Disp# 135 tab, X 90 day, Refills: 3, FILL IMMEDIATELY, Note to Pharmacy: PT IS OUT OF MEDICATION, Stop: 09/30/24 3:01:00 PM EDT, Pharmacy: [facility] Start Date: 10/06/23 Stop Date: 09/30/24 Status: Ordered Potassium Chloride (Ijy-Zmnt-Pnl M20) 20 mEq oral tablet, extended release Start: 03/13/24 10:57:00 AM EST, 1 tab, PO, Daily, Disp# 90 tab, Refills: 3, Pharmacy: [facility] Start Date: 03/13/24 Status: Ordered pravastatin 40 mg oral tablet Start: 11/02/23 9:09:00 AM EDT, 1 tab, PO, qhs, Disp# 90 tab, Refills: 3, Pharmacy: [facility] Start Date: 11/02/23 Status: Ordered spironolactone 25 mg oral tablet Start: 01/02/24 1:55:00 PM EDT, 1 tab, PO, Daily, Disp# 90 tab, Refills: 3, Pharmacy: [facility] Start Date: 01/02/24 Status: Ordered Problem List Condition Confirmation Course Effective Dates Status H ealth Status Informant Atrial flutter Confirmed Active ICD (implantable cardioverter-defibril lator) in place Confirmed Active Congestive heart failure, unspecified 1 Confirmed Active CAD in [place] artery Confirmed Active Heart murmur Confirmed Active [...] Basic Metabolic Panel (BASIC METAB PANEL ) 03/12/24 NT-Pro BNP 03/12/24 Most recent to oldest [Reference Range]: 1 eGFR CKD-EPI [>60 mL/min/1.73 m2] 38 mL/ min/1.73 m2 1 *LOW* (03/12/24 11:03 AM) BNP, NT-Pro [<125 pg/mL] 1284 pg/mL *HI* (03/12/24 11:03 AM) Estimated CrCl 39.36 mL/min (03/12/24 11:36 AM) Anion Gap [5-14 mmol/L] 12 mmol/L (03/12/24 11:03 AM) BUN [7-20 mg/dL] 26 mg/dL *HI* (03/12/24 11:03 AM) Ca [8.4-10.2 mg/dL] 9.8 mg/dL (03/12/24 11:03 AM) Cl- [96-107 mmol/L] 97 mmol/L (03/12/24 11:03 AM) HCO3 [22-30 mmol/L] 27 mmol/L (03/12/24 11:03 AM) Cret [0.70-1.30 mg/dL] 1.91 mg/dL *HI* (03/12/24 11:03 AM) Glu [74-106 mg/dL] 121 mg/dL *HI* (03/12/24 11:03 AM) K [3.5-5.1 mmol/L] 4.7 mmol/L (03/12/24 11:03 AM) Na [137-145 mmol/L] 136 mmol/L *LOW* (03/12/24 11:03 AM) 1Result Comment: Testing Performed By: Dept of Pathology [facility] [address], [address], [place] [address] Social History Social History Type Response Tobacco Current every day sm oker Smoking Status Never smoked cigaret andressa Sex Male Sex Representation Male (finding) Patient Care team information Care Team Personnel Name: MARLENE Lopes Candace Position: Referring Member Role: Primary Care Provider Address: [address] [place] [id number] [place] Care Team Related Persons Name: NEW GOOD Name: MARYURI GOOD Name: SULTANA BOX Name: MAX GREEN
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
[2024-07-04] MEDS: ASPIRIN 81 MG ECTAB PO SCH (09:19)
[2024-07-04] MEDS: THIAMINE HCL 100 MG TAB PO SCH (09:20)
[2024-07-04] MEDS: MAGNESIUM OXIDE 400 MG TAB PO SCH (09:20)
[2024-07-04] MEDS: MULTIVITAMIN TAB PO SCH (09:21)
[2024-07-04] MEDS: METOPROLOL SUCC 50MG EXT REL TAB PO SCH (09:21)
[2024-07-04] MEDS: FOLIC ACID 1 MG TAB PO SCH (09:22)
[2024-07-04] MEDS: ESCITALOPRAM OXALATE 10 MG TAB PO SCH (09:22)
[2024-07-04] MEDS: FUROSEMIDE 40 MG TAB PO SCH (09:23)
--- NOTE | 2024-07-04 09:58 | Electrocardiogram Report ---
Test Reason : Blood Pressure : */* mmHG Vent. Rate : 109 BPM Atrial Rate : 109 BPM P-R Int : 166 ms QRS Dur : 98 ms QT Int : 352 ms P-R-T Axes : 52 -11 15 degrees QTcB Int : 474 ms Sinus tachycardia Otherwise normal ECG When compared with ECG of 22-Apr-2022 14:56, Nonspecific T wave abnormality no longer present Confirmed by Kyree Graham ([id number]) on 07/04/2024 9:58:05 AM Referred By: REFERRED SELF Confirmed By: Kyree Graham
[2024-07-04] MEDS: ACETAMINOPHEN 500 MG TAB PO SCH (10:02)
[2024-07-04] MEDS: FAMOTIDINE 20 MG TAB PO SCH (10:20)
--- NOTE | 2024-07-04 10:46 | Hospitalist Progress Note ---
Date of Service July 04, 2024 Assessment & Plan (1) Erythema of lower extremity: (2) Fracture of right tibial plateau: (3) Chronic systolic CHF (congestive heart failure): (4) S/P ICD (internal cardiac defibrillator) procedure: (5) Nonischemic cardiomyopathy: Plan 69 y/o male with PMH of HFrEF, Alcohol abuse, hx of mitral valve repair, hc of CAD, Atrial flutter s/p ablation, COPD, ICD here due to right tibial plateau fracture #Right tibial plateau fracture with knee effusion - Caw stepped on top of his knee -Unable to ambulate at this time - Orthopedic consulted,but anticipate non operative management - Will need PT/OT consults after orthopedic evaluation Pain management with TOLU acetaminophen, PRN tramadol + PRN Morphine is tramadol is not effective. #Left flores erythema Monitor WBC (mildly elevated on admission) and area for developing cellulitis but currently suspect just inflammatory change surrounding trauma Monitor for calf pain to suggest DVT Alcohol abuse - 6-10 shots of whiskey daily - AWSS for at risk - Thiamine, Folic acid and Multivitamin daily Chronic stable medical conditions: NICM/Chronic HFrEF - Continue metoprolol succinate, Entresto and furosemide Peripheral neuropathy - Continue gabapentin hx of CAD: 40% mild LAD stenosis. 70% D2 stenosis COPD: Tobacco user ICD VTE Prophylaxis - Lovenox 40mg SQ daily Diet - low Na, heart healthy Disposition - med/surg Admission and Anticipated Discharge Date Admission Date: July 04, 2024 Supervising Physician Co-Signing Physician Notes I personally examined the patient and verified blevins points of history and exam, discussed case, and agree with decision making and plan documented by Dr. Sd Glover. Subjective Seen this morning. States pain is control. He states being compliant of medications. Denied any side chest pain, palpitations, dizziness, SOB He states that he drink 6-10 shots daily of whiskey. Denied any withdrawal symptoms. Review of Systems Review of Systems: as per hpi Physical Exam Constitutional: WD/WN, vitals as above Eyes: PERRL, conjunctivae normal, anicteric sclerae Respiratory: normal respiratory effort, lungs clear to auscultation Cardiovascular: Rate/Rhythm: regular rhythm and + tachycardic Heart Sounds: no murmur Extremities: + edema (Right knee edema) No calf tenderness Gastrointestinal (Abdomen): normal bowel sounds, soft, nontender, no hepatosplenomegaly Skin: Left flores with erythema and swelling around central scab. Left foot edema 2+ (right trace). Results & Data Results & Data Vital Signs (Past 12 Hours) Vital Signs Pulse Pulse Resp BP Pulse Ox O2 Del Method O2 Flow Rate 07/04/24 06:24 112 H 07/04/24 05:53 Room Air 07/04/24 01:44 112 H 18 156/97 H 98 Oxymask 6 07/04/24 00:00 120 H 18 176/108 H 96 Oxymask 3 07/03/24 23:59 117 H Resident Activity Tracking Resident Involvement: Resident Care Provided Care Provided: Adult Hospital Medicine
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
[2024-07-04] MEDS: POLYETHYLENE (MIRALAX) 17 GM PACK PO SCH (15:18)
[2024-07-04] MEDS: ENOXAPARIN INJ 40 MG/0.4 ML SYR SQ SCH (21:46)
[2024-07-04] MEDS: GABAPENTIN 100 MG CAP PO SCH (21:47)
[2024-07-04] MEDS: traMADol HCL 50 MG TABLET PO PRN (23:26)
[2024-07-05 08:09] VITALS: BP 122/78; PULSE 98; TEMP 97.3; O2SAT 91
--- NOTE | 2024-07-05 09:29 | Discharge Summary ---
Date of Service July 05, 2024 Admission HPI Per Admitting Provider Carlton Jose is a 69 year old male who presents to the ER with right knee pain. He reports Monday night and cow broke a gate and he was trapped underneath the gate facing forwards when the 1000lb cow then trod on the gate that he was trapped under. His right knee is now swollen and painful and unable to bear weight. He reports taking all his night time medications. Feels well otherwise with not other complaints. However on exam he was noticed to have some warmth and erythema on his left flores with some swelling. He reportedly knocks his flores relatively routinely therefore isn't sure whether this has been there for 2 days or a week but reports it is not getting worse. No fever or chills. This leg also appears more swollen but he also notes this is not unusual for him. Admission Exam Per Admitting Provider Constitutional: WD/WN, vitals as above Eyes: PERRL, conjunctivae normal, anicteric sclerae ENMT: Mouth: + dry oral mucous membranes Cardiovascular: Rate/Rhythm: regular rhythm and + tachycardic Heart Sounds: no murmur Extremities: + pedal edema (L > R); + abnormal capillary refill (poor capillary refill in toes bilaterally equal) and no calf tenderness Gastrointestinal (Abdomen): normal bowel sounds, soft, nontender, no hepatosplenomegaly Skin: Left flores with erythema and swelling around central scab. Left foot edema 2+ (right trace). Right knee effusion without erythema or warmth with graze and ecchymosis on lateral side os knee but no surrounding cellulitis Neurologic: moves all extremities and awake; not confused Psychiatric: A+Ox3, euthymic affect Refer to admission H&P for pictures of pt's knee. Principal Diagnosis tibial plateau fracture, patella fracture Discharge Exam Constitutional: well appearing, no acute distress HEENT: normocephalic, no conjunctival injection CV: regular rhythm, tachycardic, no murmur, no LE edema Respiratory: Clear to auscultation bilaterally. No rhonchi, wheezes, or crackles. No increased work of breathing MSK: right knee in immobilizing brace Skin: warm, dry Neuro: alert, oriented, no FND noted Discharge Data Allergies Allergy/AdvReac Type Severity Reaction Status Date / Time oxycodone [From Percodan] AdvReac Mild Dizziness Verified 07/05/24 08:36 Consultations 07/04/24 00:18 ED Decision to Admit Stat 07/04/24 06:30 Consult Orthopedic Surgery Routine Ordered Studies 07/03/24 21:44 CT knee RT wo con Stat IMPRESSION: 1. Acute nondepressed cleavage-type fracture of the lateral tibial plateau (Schatzker type I). 2. Large lipohemarthrosis. Hospital Course (1) Erythema of lower extremity: (2) Fracture of right tibial plateau: (3) Chronic systolic CHF (congestive heart failure): (4) S/P ICD (internal cardiac defibrillator) procedure: (5) Nonischemic cardiomyopathy: Plan Pt is a 69 y/o male with PMH of HFrEF, excessive alcohol use, hx of mitral valve repair, hx of CAD, atrial flutter s/p ablation, COPD, ICD here due to right tibial plateau fracture. Right tibial plateau fracture with knee effusion - Cow stepped on top of his knee; unable to ambulate on admission - Orthopedics consulted; recommended transfer for evaluation with trauma surgeon- trauma surgeon recommending outpatient f/u (scheduled for Monday, 07/08) - knee immobilizer in place upon discharge; instructed pt to remain non weight bearing on right leg and with immobilizer in place until orthopedic evaluation - sent oxycodone 5mg q4hr PRN for pain control in addition to tylenol; instructed pt to avoid NSAID use and alcohol use while on opioid medication Left flores erythema - WBC mildly elevated on admission; suspect secondary to trauma response - no developing pain to suggest DVT Excessive alcohol use - 6-10 shots of whiskey daily - no ativan necessary during admission - thiamine, folic acid and multivitamin given daily Chronic stable medical conditions: NICM/Chronic HFrEF - Continue metoprolol succinate, Entresto and furosemide Peripheral neuropathy - Continue gabapentin hx of CAD: 40% mild LAD stenosis. 70% D2 stenosis COPD: Tobacco user VTE Prophylaxis - Lovenox 40mg SQ daily Diet - low Na, heart healthy Disposition - home with close orthopedic f/u Total Time Total Time Spent Total Time Spent (In Minutes): as per attending attestation Discharge Plan Discharge Items Patient Disposition: Home - Self-Care Reason For Visit: TIBIAL PLATEAU FRACTURE Discharge Diagnosis: tibial plateau fracture, patella fracture Activity: Per Instructions section Non-emergency contact: Primary Care Provider and Surgeon Call non-emergency contact if: you have any medication questions and your pain is not controlled Follow-up/Referrals: Dr. Anoop Salinas [Other] - 07/08/24 11:00 am Rosemarie Lopes CRNP [Primary Care Provider] - 07/12/24 10:30 am Diet: Heart Healthy Addtl Attending Provider Instructions: You were admitted to the hospital for right knee pain after a traumatic injury to this knee from a cow. You were evaluated by orthopedics here who recommended evaluation by a trauma surgeon. When discussing your case with trauma surgeons at [facility], they recommended no immediate transfer is necessary and would like to follow up with you next week to discuss options for treatment. You were given medication to help with pain control. It is recommended that you remain non weight bearing on your right leg. The knee immobilizer brace is to remain on until orthopedic follow up. A discharge summary will be sent to your primary care physician to ensure continuity of care. Please bring this discharge summary with you to your next office appointment so that your provider can review it at that time. Medications: Your medication list has been reviewed and reconciled upon discharge to ensure accuracy and continuity of care. An updated list of all your medications is included with your hospital discharge paperwork. Please review this list closely and make note of any changes to your medications. - You should take 500-1000mg of tylenol up to three times per day. Do not take NSAIDs for pain (ibuprofen, Aleve, Advil, or naproxen). - You may take 5mg of oxycodone every 4 hours as needed for pain- maximum of 30mg oxycodone in a 24 hour period. Do not drink alcohol while taking this medication. Follow up appointments: - You have an appointment with orthopedics on Saturday 07/08 which you need to attend for further management of your knee. - Make a follow up appointment with your PCP within the next week. It is very important that you follow up with them shortly after discharge from the hospital. - Keep all of your follow up appointments as already scheduled. If you cannot make an appointment, notify your provider. CONTACT YOUR PRIMARY CARE PROVIDER if you experience any of the following: - Difficulty following your treatment plan - Difficulty taking any of your medications CALL 911 OR GO TO THE EMERGENCY DEPARTMENT if you experience any of the following: - Sudden, severe abdominal pain or nausea/vomiting - Severe chest pain or chest pain that radiates to your jaw or arm - Sudden, severe shortness of breath or difficulty breathing Pending Studies at Discharge: No Stand-Alone Forms: Work/School Release (ED), My [facility], Pain - Opioid Pain Management, Smoking Cessation Medications and DC Order Prescriptions: New oxycodone 5 mg tablet 5 mg PO Q4H MDD 30 mg PRN (Reason: severe pain (scale score 7-10)) Qty: 30 0RF Continued potassium chloride 10 mEq tablet extended release 10 meq PO DAILY Qty: 30 11RF furosemide 40 mg Tablet 40 mg PO QAM Qty: 30 5RF metoprolol succinate 50 mg Tablet Extended Release 24 Hr 50 mg PO QAM Qty: 30 5RF magnesium oxide 400 mg (241.3 mg magnesium) Tablet 400 mg PO QAM Qty: 30 2RF escitalopram oxalate 10 mg Tablet 10 mg PO QAM Qty: 30 5RF Entresto 49-51 mg Tablet 1 tab PO BID Qty: 60 5RF aspirin 81 mg Tablet,Delayed Release (Dr/Ec) 81 mg PO DAILY coenzyme Q10 30 mg Capsule 30 mg PO DAILY gabapentin 100 mg capsule 100 mg PO HS Discharge Orders: Discharge Order (Routine); Ordered 07/05/24 Ordered By: Dayana Valdez Admission Data Admit Date/Time: 07/04/24 00:29 Attending Provider: Elena Lopes Admit Provider: Adrian Mcbride Primary Care Provider: Rosemarie Lopes Other Providers: Adrian Mcbride; Ward Villalobos; [facility] Other Interventions: Discharge Summary Assessment (RN) Last Done: 07/05/24 13:10 Supervising Physician Co-Signing Physician Notes I personally examined the patient and verified blevins points of history and exam, discussed case, and agree with decision making and plan documented by Dr. Valdez. Patient will have follow-up with orthopedics for right tibial fracture 07/08/24. Physical therapy provided crutches initially but patient was quite unsteady and recommended utilizing walker instead. Prescription for oxycodone 5 mg every 4 hours #30 provided on discharge, PDMP checked and appropriate, advised patient to not drink alcohol while using opioid. Patient understanding and will follow-up with PCP and orthopedics as discussed. Resident Activity Tracking Resident Involvement: Resident Care Provided Care Provided: Adult Hospital Medicine
[2024-07-05] MEDS: oxyCODONE HCL IR 5 MG TAB (IMMEDIATE RELEASE) PO STA (09:52)
--- NOTE | 2024-07-05 11:40 | Orthopedic Progress Note ---
Date of Service July 05, 2024 Assessment & Plan (1) Patella fracture: (2) Fracture of right tibial plateau: (3) Erythema of lower extremity: (4) Chronic systolic CHF (congestive heart failure): (5) S/P ICD (internal cardiac defibrillator) procedure: (6) Nonischemic cardiomyopathy: (7) NSVT (nonsustained ventricular tachycardia): Plan Spoke with orthopedic trauma surgeon at [facility] in [place] yesterday about this patient's case. They are willing to see him in follow-up and will schedule with him next week. No acute plans for orthopedic intervention while he is admitted at [facility]. Admission and Anticipated Discharge Date Admission Date: July 04, 2024
== END 2024-07-05 13:51 | disposition home or self-care (01) ==
LOC: ED 19:47 → EDINP 19:47 → SUATTDRO 07-04 00:29 → 3N 07-04 01:42

== ENCOUNTER 2024-09-29 14:46 | Inpatient (IN) ==
--- NOTE | 2024-09-29 15:40 | XRay Report ---
EXAM: X-ray chest one-view portable CLINICAL HISTORY: Chest pain PRIORS: 07/21/2022 TECHNIQUE: Frontal view chest FINDINGS: The chest is well-expanded. Left-sided cardiac pacing device noted with leads present. Median sternotomy wires and a prosthetic valve present. No airspace consolidation, effusion or congestive changes. Heart size is normal. No pneumothorax. Trachea is patent. Osseous structures demonstrate no acute abnormality. No radiopaque foreign body. IMPRESSION: No plain film evidence of an acute cardiopulmonary process. Electronically signed by Sabrina Joy 09-29-2024 3:39 PM
[2024-09-29 15:55] LABS: Hematocrit (blood only) 37.7 % (42.0-52.0); Hemoglobin 13.1 g/dl (14.0-18.0); Immature Granulocytes # (auto) 0.02 K/uL (0.01-0.20); Immature Granulocytes % (auto) 0.4 %; Mean Corpuscular Hemoglobin 35.2 pg (25.0-34.0); Mean Corpuscular Volume 101.3 fL (80.0-100.0); Platelet Count 252 K/uL (130-400); RDW Standard Deviation 51.8 fL (36.4-46.3); Red Blood Count 3.72 M/uL (4.70-6.10); White Blood Count 5.56 K/ul (4.8-10.8)
[2024-09-29 16:38] LABS: Alanine Aminotransferase 25.0 U/L (7-52); Albumin Globulin Ratio 0.8 (0.9-2); Alkaline Phosphatase 168.0 U/L (34-104); Anion Gap 20.0 (3-11); Bilirubin,Total 1.1 mg/dl (0.2-1.0); Blood Urea Nitrogen 17.0 mg/dl (6-23); Calcium 9.1 mg/dl (8.6-10.3); Carbon Dioxide 42.0 mmol/L (21-32); Chloride 76.0 mmol/L (98-107); Creatinine Clr Calc Pharmacy 34.2 ml/min; Globulin 3.8 gm/dl (2.5-4.0); Glucose 89.0 mg/dl (70-99(Fasting)); Potassium 2.4 mmol/L (3.5-5.1); Sodium 138.0 mmol/L (136-145); Total Protein 6.9 gm/dl (6.0-8.3)
--- NOTE | 2024-09-29 17:09 | Emergency Department Note ---
Impression & Plan Hypokalemia, Alcohol intoxication, Dehydration, Hypomagnesemia, Nausea & vomiting ED Provider Note NAME: RUDOLPH GOOD AGE: 69 SEX: M : 1955 ARRIVES VIA: Walk-In INFORMANT: Patient, ED PROVIDER(S): Andrey Sumner MD CHIEF COMPLAINT: Abdominal swelling HPI: This is a 69-year-old male presenting for abdominal swelling and pain. Patient notes he is at increased leg swelling, abdominal swelling and shortness of breath. He thinks he may be anxious. He notes abdominal pain to the nurse but cut declines this to me. He thinks he has heart failure as he had this before. He reports no chest pain or pleurisy. He reports possible leg swelling bilaterally. He states he had drank alcohol this morning. ROS: See above HPI for pertinent positives & negatives. A total of 10 systems reviewed and were otherwise negative. PAST MEDICAL HISTORY: See Below PAST SURGICAL HISTORY: See Below FAMILY HISTORY: See Below SOCIAL HISTORY: See Below HOME MEDICATIONS: See Below ALLERGIES: See Below VITALS: See Below PHYSICAL EXAMINATION: General: Chronically unwell appearing Head: Normocephalic and atraumatic Eyes: Normal inspection, extraocular muscles intact Ear, nose, throat: Normal external exam Neck: Normal range of motion Respiratory: lungs clear to auscultation bilaterally Cardiovascular: Regular rate/rhythm, possible murmur GI: soft, nontender, no guarding or rebound Extremities: nontender, moves all extremities, right knee in brace Neuro: The patient awake and alert, appropriately conversive, no focal deficits, symmetric faces Skin: Warm, dry, and intact MEDICAL DECISION MAKING: This is 69-year-old male with intra-abdominal pain/swelling. Patient presents with shortness of breath as well will do x-ray to assess for CHF due to swelling of his legs, abdomen. - Patient's blood work is abnormal with no leukocytosis, hemoglobin of 13.1. There is a significant elevated creatinine to 2.2, from his baseline. Potassium is low at 2.4. His magnesium 1.6. Alco level is 143. - Patient has had emesis while in the emergency department. Will do CT imaging of the abdomen Noncon due to ANUJ -Chest x-ray read as no acute cardiopulmonary process -There is concern for patient's safety at home as he has been boarding up his door and not taking his medications at home. -While here patient also appear significantly intoxicated he has an elevated alcohol level. -Due to patient's hypokalemia, creatinine elevation, nausea vomiting abdominal pain, will admit the patient to medical service at this time Differential diagnosis: SBO, gastroenteritis, CHF Independent History obtained from: Son Diagnostics interpreted by me: ECG: None Cardiac Monitoring: An order was placed for continuous cardiac monitoring. The monitor shows a rate of 90 with sinus rhythm. 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 Acute alcohol intoxication Electrolyte abnormality Patella fracture Fracture of right tibial plateau (~07/05/24) Rhus dermatitis Chronic systolic CHF (congestive heart failure) S/P ICD (internal cardiac defibrillator) procedure Nonischemic cardiomyopathy NSVT (nonsustained ventricular tachycardia) Partial thickness burn of ankle Effusion of elbow joint, left Second degree burn of ankle Left inguinal hernia Foot pain, left Benign prostatic hyperplasia with urinary obstruction (Acute) Inhibited sexual excitement (Acute) Male erectile disorder (Acute) Urinary frequency (Acute) Urinary urgency (Acute) Shoulder pain, acute Abdominal pain (Acute) Medical History Acute on chronic systolic heart failure Depression with anxiety Hypertension Asthma Alcohol abuse Mitral regurgitation Surgical History History of mitral valve repair Hx of heart surgery History of back surgery History of ankle surgery Family History Brother Diabetes Mother Cancer Social History Smoking Status: Current every day smoker Tobacco Type: Cigarettes Cigarettes Per Day: 1; Do You Dip or Chew Tobacco: No; Hx Alcohol Use: Yes Alcohol type: hard liquor Hx Substance Use: Yes Last Used Substance: Unknown Last Used Substance Other:: last used at 4pm yesterday Substance Use Type Other:: "I just take 1 hit" "I'll be stoned all day long with one little hit" Preferred Language: Amharic Communication Ability: Impaired Communication Ability Comment: pt states he can read enough to get by but is not a very good reader Lawyer Probate Required: No Beliefs That Will Affect Care: None marital status: Legally Current Living Situation: Alone 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 Feels Safe at Home: Hesitant to Answer Assistive Devices: Crutches and Walker Allergies Allergies Allergy/AdvReac Type Severity Reaction Status Date / Time oxycodone [From Percodan] AdvReac Mild Dizziness Verified 09/29/24 17:44 Home Meds Home Medications Medication Instructions Recorded Confirmed aspirin 81 mg tablet,delayed 81 mg PO DAILY 04/21/22 09/29/24 release gabapentin 100 mg capsule 100 mg PO HS 07/03/24 09/29/24 albuterol sulfate 90 mcg/actuation 2 puff inhalation QID PRN 09/29/24 09/29/24 aerosol inhaler Shortness Of Breath Or Wheezing coenzyme Q10 100 mg capsule (Co 100 mg PO DAILY 09/29/24 09/29/24 Q-10) lisinopril 20 mg tablet 20 mg PO DAILY 09/29/24 09/29/24 potassium chloride 20 mEq 20 meq PO DAILY 09/29/24 09/29/24 tablet,extended release spironolactone 25 mg tablet 25 mg PO DAILY 09/29/24 09/29/24 Previous Rx's Medication Instructions Recorded escitalopram oxalate 10 mg tablet 10 mg PO QAM #30 tabs 04/25/22 furosemide 40 mg tablet 40 mg PO QAM #30 tabs 04/25/22 magnesium oxide 400 mg (241.3 mg 400 mg PO QAM #30 tabs 04/25/22 magnesium) tablet metoprolol succinate 50 mg 50 mg PO QAM #30 tabs 04/25/22 tablet,extended release 24 hr sacubitril 49 mg-valsartan 51 mg 1 tab PO BID #60 tabs 04/25/22 tablet (Entresto) Results & Data (ED) Vital Signs Vital Signs - 24 hr 09/29/24 17:00 09/29/24 18:54 09/29/24 19:23 Pulse Rate 109 H Pulse Rate [Apical] 98 H 101 H Pulse Rhythm [Apical] Regular Regular Pulse Strength [Apical] Normal Normal Respiratory Rate 18 18 Respiratory Effort / Characteristics Non-Labored Spontaneous Non-Labored Spontaneous Respiratory Depth Normal Normal Respiratory Pattern Regular Regular Blood Pressure [Right Arm] 143/92 H 137/104 H Blood Pressure Mean [Right Arm] 109 115 Blood Pressure Position [Right Arm] Lying Lying Pulse Oximetry 93 97 Oxygen Delivery Method Room Air Room Air Laboratory Data 09/30/24 07:03 09/30/24 07:03 Lab Results 09/29/24 09/29/24 09/29/24 Range/Units 15:38 17:12 19:03 WBC 5.56 (4.8-10.8) K/ul RBC 3.72 L (4.70-6.10) M/uL Hgb 13.1 L (14.0-18.0) g/dl Hct 37.7 L (42.0-52.0) % MCV 101.3 H (80.0-100.0) fL MCH 35.2 H (25.0-34.0) pg MCHC 34.7 (32.0-36.0) g/dL RDW Std Deviation 51.8 H (36.4-46.3) fL RDW Coeff of Donna 13.8 (11.5-14.5) % Plt Count 252 (130-400) K/uL MPV 9.6 (9.4-12.4) fL Immature Gran % (Auto) 0.4 % Neut % (Auto) 56.4 % Lymph % (Auto) 29.9 % Hand % (Auto) 11.7 % Eos % (Auto) 1.1 % Baso % (Auto) 0.5 % Neut # (Auto) 3.14 (1.40-6.50) K/uL Lymph # (Auto) 1.66 (1.20-3.40) K/uL Hand # (Auto) 0.65 H (0.11-0.59) K/uL Eos # (Auto) 0.06 (0.00-0.50) K/uL Baso # (Auto) 0.03 (0.00-0.20) K/uL Immature Gran # (Auto) 0.02 (0.01-0.20) K/uL PT 11.8 (9.0-12.0) Seconds INR 1.1 (0.9-1.1) Sodium 138 (136-145) mmol/L Potassium 2.4 L* (3.5-5.1) mmol/L Chloride 76 L (98-107) mmol/L Carbon Dioxide 42 H* (21-32) mmol/L Anion Gap 20 H (3-11) BUN 17 (6-23) mg/dl Creatinine 2.20 H (0.6-1.4) mg/dl Est Cr Clr Drug Dosing 34.2 ml/min eGFR 31.83 BUN/Creatinine Ratio 7.7 L (10-20) Glucose 89 (70-99(Fasting)) mg/dl Calcium 9.1 (8.6-10.3) mg/dl Magnesium 1.6 L (1.7-2.4) mg/dl Total Bilirubin 1.1 H (0.2-1.0) mg/dl AST 58 H (13-39) U/L ALT 25 (7-52) U/L Alkaline Phosphatase 168 H (34-104) U/L Troponin I High Sens 21.8 H 22.9 H (0-20) pg/ml B-Natriuretic Peptide 246 H (0-100) pg/ml Total Protein 6.9 (6.0-8.3) gm/dl Albumin 3.1 L (3.4-5.0) gm/dl Globulin 3.8 (2.5-4.0) gm/dl Albumin/Globulin Ratio 0.8 L (0.9-2) Urine Color Urine Appearance (Clear) Urine pH (4.5-7.5) Ur Specific [place] (1.000-1.030) Urine Protein (Negative) Urine Glucose (UA) (Negative) Urine Ketones (Negative) Urine Blood (Negative) Urine Nitrite (Negative) Urine Bilirubin (Negative) Urine Urobilinogen (Negative) Ur Leukocyte Esterase (Negative) Urine WBC (Auto) (0-5) /hpf Urine RBC (Auto) (0-2) /hpf U Hyaline Cast (Auto) (0-2) /lpf U Epithel Cells (Auto) (0-2) /hpf Urine Bacteria (Auto) (None Seen) Urine Comment Ethyl Alcohol mg/dL 143.3 H (<10.0) mg/dl 09/29/24 Range/Units 19:05 WBC (4.8-10.8) K/ul RBC (4.70-6.10) M/uL Hgb (14.0-18.0) g/dl Hct (42.0-52.0) % MCV (80.0-100.0) fL MCH (25.0-34.0) pg MCHC (32.0-36.0) g/dL RDW Std Deviation (36.4-46.3) fL RDW Coeff of Donna (11.5-14.5) % Plt Count (130-400) K/uL MPV (9.4-12.4) fL Immature Gran % (Auto) % Neut % (Auto) % Lymph % (Auto) % Hand % (Auto) % Eos % (Auto) % Baso % (Auto) % Neut # (Auto) (1.40-6.50) K/uL Lymph # (Auto) (1.20-3.40) K/uL Hand # (Auto) (0.11-0.59) K/uL Eos # (Auto) (0.00-0.50) K/uL Baso # (Auto) (0.00-0.20) K/uL Immature Gran # (Auto) (0.01-0.20) K/uL PT (9.0-12.0) Seconds INR (0.9-1.1) Sodium (136-145) mmol/L Potassium (3.5-5.1) mmol/L Chloride (98-107) mmol/L Carbon Dioxide (21-32) mmol/L Anion Gap (3-11) BUN (6-23) mg/dl Creatinine (0.6-1.4) mg/dl Est Cr Clr Drug Dosing ml/min eGFR BUN/Creatinine Ratio (10-20) Glucose (70-99(Fasting)) mg/dl Calcium (8.6-10.3) mg/dl Magnesium (1.7-2.4) mg/dl Total Bilirubin (0.2-1.0) mg/dl AST (13-39) U/L ALT (7-52) U/L Alkaline Phosphatase (34-104) U/L Troponin I High Sens (0-20) pg/ml B-Natriuretic Peptide (0-100) pg/ml Total Protein (6.0-8.3) gm/dl Albumin (3.4-5.0) gm/dl Globulin (2.5-4.0) gm/dl Albumin/Globulin Ratio (0.9-2) Urine Color Yellow Urine Appearance Clear (Clear) Urine pH >= 9.0 H (4.5-7.5) Ur Specific [place] 1.009 (1.000-1.030) Urine Protein 1+ H (Negative) Urine Glucose (UA) Negative (Negative) Urine Ketones Negative (Negative) Urine Blood Negative (Negative) Urine Nitrite Negative (Negative) Urine Bilirubin Negative (Negative) Urine Urobilinogen Negative (Negative) Ur Leukocyte Esterase Negative (Negative) Urine WBC (Auto) 0-5 (0-5) /hpf Urine RBC (Auto) 0-2 (0-2) /hpf U Hyaline Cast (Auto) 0-2 (0-2) /lpf U Epithel Cells (Auto) 0-2 (0-2) /hpf Urine Bacteria (Auto) None Seen (None Seen) Urine Comment Ethyl Alcohol mg/dL (<10.0) mg/dl Administered Medications Aspirin (Aspirin 81 Mg Ectab) 81 mg PO DAILY TOLU Stop: 10/30/24 08:59 Last Admin: 09/30/24 09:47 Dose: Not Given Documented By: CNB Thiamine HCl 100 mg/ Syringe 10 mls @ 2 mls/min IV QAM TOLU Stop: 10/30/24 08:59 Last Admin: 09/30/24 09:05 Dose: 2 mls/min Documented By: CNB Folic Acid 1 mg/ Syringe 10 mls @ 5 mls/min IV QAM TOLU Stop: 10/30/24 08:59 Last Admin: 09/30/24 09:05 Dose: 5 mls/min Documented By: CNB Potassium Chloride (K Kevan / Wtr) 10 meq in 100 mls @ 100 mls/hr IV Q1H TOLU Stop: 09/30/24 17:44 Last Admin: 09/30/24 14:48 Dose: 100 mls/hr Documented By: Infusion: 09/30/24 14:34 Dose: Infused Documented By: Admin: 09/30/24 13:34 Dose: 100 mls/hr Documented By: Infusion: 09/30/24 13:34 Dose: Infused Documented By: Admin: 09/30/24 12:44 Dose: 100 mls/hr Documented By: Infusion: 09/30/24 12:44 Dose: Infused Documented By: Admin: 09/30/24 12:43 Dose: 100 mls/hr Documented By: VINOD Lorazepam (Lorazepam 2 Mg/1 Ml Vial) 1 mg IV UD PRN; Protocol PRN Reason: EtOH Withdrawal AWSS Score 6,7 Stop: 10/29/24 21:13 Last Admin: 09/30/24 02:36 Dose: 1 mg Documented By: ASM Lorazepam (Lorazepam 2 Mg/1 Ml Vial) 2 mg IV UD PRN; Protocol PRN Reason: EtOH Withdrawal AWSS Score 8,9 Stop: 10/29/24 21:13 Last Admin: 09/30/24 11:45 Dose: 2 mg Documented By: Admin: 09/30/24 07:42 Dose: 2 mg Documented By: Admin: 09/30/24 06:39 Dose: 2 mg Documented By: AB Metoprolol Succinate (Metoprolol Succ 50mg Ext Rel Tab) [address] [facility] Stop: 10/30/24 08:59 Last Admin: 09/30/24 09:48 Dose: Not Given Documented By: JAXSON Multivitamins (Multivitamin Tab) [address] [facility] Stop: 10/30/24 08:59 Last Admin: 09/30/24 09:48 Dose: Not Given Documented By: JAXSON Phenobarbital Sodium (Phenobarbital Sodium 65 Mg/Ml Vial) 160 mg IV Q3H [facility] Stop: 09/30/24 18:31 Last Admin: 09/30/24 15:02 Dose: 160 mg Documented By: VINOD Phenol (Chloraseptic (Phenol) 1.4% Soln 180 Ml Btl) 2 sprays MT QID PRN PRN Reason: Sore Throat Stop: 10/29/24 22:10 Last Admin: 09/29/24 22:39 Dose: 2 sprays Documented By: AB Discontinued Medications Diazepam (Diazepam 5 Mg Tablet) 10 mg PO NOW ONE Stop: 09/29/24 21:19 Last Admin: 09/29/24 21:42 Dose: 10 mg Documented By: AB Escitalopram Oxalate (Escitalopram Oxalate 10 Mg Tab) [facility] Stop: 10/30/24 08:59 Last Admin: 09/30/24 09:47 Dose: Not Given Documented By: JAXSON Sodium Chloride (Nss) 1,000 mls @ 999 mls/hr IV .Q1H1M ONE Stop: 09/29/24 19:01 Last Infusion: 09/29/24 19:15 Dose: Infused Documented By: Admin: 09/29/24 18:16 Dose: 999 mls/hr Documented By: SERGE Magnesium Sulfate/Dextrose (Magnesium Sulfate / D5w) 1 gm in 100 mls @ 100 mls/hr IV NOW STA Stop: 09/29/24 19:05 Last Infusion: 09/29/24 19:15 Dose: Infused Documented By: Admin: 09/29/24 18:13 Dose: 100 mls/hr Documented By: SERGE Thiamine HCl 500 mg/ Sodium (Chloride) 55 mls @ 210 mls/hr IV NOW STA Stop: 09/29/24 19:37 Last Infusion: 09/29/24 20:10 Dose: Infused Documented By: Admin: 09/29/24 19:49 Dose: 210 mls/hr Documented By: TALHA Magnesium Sulfate/Dextrose (Magnesium Sulfate / D5w) 1 gm in 100 mls @ 100 mls/hr IV NOW STA Stop: 09/29/24 22:13 Last Infusion: 09/29/24 22:45 Dose: Infused Documented By: Admin: 09/29/24 21:42 Dose: 100 mls/hr Documented By: ASM Lactated Ringer's (Lr) 1,000 mls @ 125 mls/hr IV .Q8H TOLU Stop: 09/30/24 05:13 Last Infusion: 09/30/24 08:03 Dose: Infused Documented By: Admin: 09/29/24 21:42 Dose: 125 mls/hr Documented By: ASM Phenobarbital Sodium 320 mg/ (Sodium Chloride) 52.4615 mls @ 104.923 mls/hr IV ONE STA Stop: 09/30/24 12:53 Last Infusion: 09/30/24 13:15 Dose: Infused Documented By: Admin: 09/30/24 12:40 Dose: 104.9 mls/hr Documented By: VINOD Ketamine HCl 15 mg/ Sodium (Chloride) 50.3 mls @ 301.8 mls/hr IV NOW ONE Stop: 09/30/24 13:33 Last Infusion: 09/30/24 13:59 Dose: Infused Documented By: VINOD Co-signed By: [facility] Admin: 09/30/24 13:45 Dose: 301.8 mls/hr Documented By: VINOD Co-signed By: FAIZA Lorazepam (Lorazepam 2 Mg/1 Ml Vial) 1 mg IV NOW STA Stop: 09/29/24 19:23 Last Admin: 09/29/24 19:50 Dose: 1 mg Documented By: TALHA Lorazepam (Lorazepam 2 Mg/1 Ml Vial) 3 mg IV ONCE PRN; Protocol PRN Reason: EtOH Withdrawal AWSS Score 10+ Last Admin: 09/30/24 09:12 Dose: 3 mg Documented By: JAXSON Ondansetron HCl (Ondansetron Inj 2 Mg/Ml 2 Ml Vial) Confirm Administered Dose 4 mg .ROUTE .STK-MED ONE Stop: 09/29/24 17:42 Last Admin: 09/29/24 17:45 Dose: 4 mg Documented By: SERGE Phenobarbital Sodium (Phenobarbital Sodium 65 Mg/Ml Vial) 160 mg IV Q3H TOLU Stop: 09/30/24 16:01 Last Admin: 09/30/24 13:58 Dose: Not Given Documented By: VINOD Pneumococcal 20-Valent Conj Vacc (Pneumococcal Vaccine (Pcv20) 20-Elba Conj-Dip Crm/Pf 0.5 Ml Syr) 0.5 ml IM .ONCE ONE Stop: 09/30/24 09:01 Last Admin: 09/30/24 10:09 Dose: Not Given Documented By: JAXSON Potassium Chloride (Potassium Chloride Crtab 20 Meq Tabcr) 40 meq PO NOW STA Stop: 09/29/24 18:02 Last Admin: 09/29/24 18:15 Dose: 40 meq Documented By: SERGE Potassium Chloride (Potassium Chloride Crtab 20 Meq Tabcr) 60 meq PO NOW STA Stop: 09/29/24 21:15 Last Admin: 09/29/24 21:42 Dose: 60 meq Documented By: AB Imaging Data Radiologist's Impression: Chest X-Ray 09/29/24 14:59 EXAM: X-ray chest one-view portable CLINICAL HISTORY: Chest pain PRIORS: 07/21/2022 TECHNIQUE: Frontal view chest FINDINGS: The chest is well-expanded. Left-sided cardiac pacing device noted with leads present. Median sternotomy wires and a prosthetic valve present. No airspace consolidation, effusion or congestive changes. Heart size is normal. No pneumothorax. Trachea is patent. Osseous structures demonstrate no acute abnormality. No radiopaque foreign body. IMPRESSION: No plain film evidence of an acute cardiopulmonary process. Electronically signed by Sabrina Joy 09-29-2024 3:39 PM Discharge Plan Visit Data Chief Complaint: Swelling/Edema to Extremity Stated Complaint: FEET/BELLY SWOLLEN, CAN'T EAT, HAS HEART CONDITION ED Provider: Andrey Sumner Discharge Problem: Hypokalemia, Alcohol intoxication, Dehydration, Hypomagnesemia, Nausea & vomiting Patient Disposition: Admitted As Inpatient Condition: Fair Discharge Instructions Interventions: ED Discharge Assessment Last Done: 09/29/24 20:29 Discharge Problem: Alcohol intoxication Qualifiers: Complication of substance-induced condition: with unspecified complication Q ualified Code(s): F10.929 - Alcohol use, unspecified with intoxication, unspecified Nausea & vomiting Qualifiers: Vomiting type: unspecified Qualified Code(s): R11.2 - Nausea with vomiting, unspecified
[2024-09-29] MEDS: ONDANSETRON INJ 2 MG/ML 2 ML VIAL ONE (17:45)
[2024-09-29] MEDS: MAGNESIUM SULFATE / D5W 1 GM/100 ML BAG IV STA ×2 (18:13→21:42)
[2024-09-29] MEDS: POTASSIUM CHLORIDE CRTAB 20 MEQ TABCR PO STA ×2 (18:15→21:42)
[2024-09-29] MEDS: SODIUM CHLORIDE 0.9% 1,000 ML IV ONE (18:16)
[2024-09-29 18:31] LABS: Magnesium 1.6 mg/dl (1.7-2.4)
--- NOTE | 2024-09-29 18:47 | Communication Note ---
Date of Service: September 29, 2024 Triage note 69 y/o declining days to weeks. son states he's not been seeing people. board accross door. not taking his meds c/o leg swelling, belly swelling and pain, intoxicated BAL [address] Not hypoxic Tn 20s CO2 [address] abdomen - read pending K 2.4 AG 20 BUN 17 Cr 2.2 Mag 1.6 A/P: Declining recently, ANUJ, severe hypokalemia, abdominal pain, alcoholism -fluids/lytes -cirrhosis? added on INR, though bili low platelets normal -TSH/thiamine/B12/folate check -follow up report of ct abdomen/pelvis noncontrast -probably med/surg
--- NOTE | 2024-09-29 19:31 | CT Scan Report ---
EXAM: CT abd pelvis wo con CLINICAL HISTORY: Abdominal pain, distension. TECHNIQUE: Non-contrast CT of the abdomen and pelvis was performed, with the following protocol: axial images, and reconstructed coronal and sagittal images. One of the following dose reduction techniques was utilized for this exam: Automated exposure control, adjustment of the mA and/or kV according to patient size, and use of iterative reconstruction. COMPARISON: No prior studies available for comparison FINDINGS: Motion artifacts are present. Abdomen: Liver: Normal in size and shape. Decreased parenchymal attenuation suggestive of steatosis. Multiple tiny scattered calcifications, likely granulomas. Irregular hypodense areas are seen in the hepatic segment IV. Gallbladder and Biliary System: The gallbladder is normal in size and shape. No wall thickening, pericholecystic fluid, or gallstones were identified. Pancreas: Pancreatic head, body, and tail are visualized and appear normal in size and density. No pancreatic masses or calcifications were noted. Spleen: Normal in size, shape, and density. No splenic lesions or masses were identified. Multiple tiny calcifications are seen, likely granulomas. Appendix: The appendix is normal in size without periappendiceal fat stranding, and without an appendicolith. No evidence of appendiceal abscess or perforation. Kidneys and Adrenal Glands: Both kidneys are normal in size, shape, and position. Cortical thickness is within normal limits. No renal calculi or hydronephrosis. Thickened and nodular left adrenal gland. Mild bilateral perinephric fat stranding. Abdominal Aorta and Vessels: No evidence of an aneurysm. Mild atherosclerosis. Pelvis: Urinary Bladder: Normal in contour and wall thickness. No intraluminal lesions. Prostate: Normal in size and contour. No masses or abnormal thickening. Seminal Vesicles: Normal appearance without abnormal enlargement or mass. Peritoneal and Retroperitoneal Structures: No free fluid or abnormal fluid collections were identified within the abdomen or pelvis. No lymphadenopathy was noted. Bowel: Hiatal hernia. Uncomplicated colonic diverticulosis. The visualized bowel loops are normal in caliber and appearance. No evidence of bowel obstruction or wall thickening. Bones and Soft Tissues: Pelvic bones and soft tissues are unremarkable. No fractures or abnormal masses were identified. Small fat-containing left inguinal hernia. Degenerative changes in the spine. IMPRESSION: No bowel obstruction. Hepatic steatosis, with areas of irregular hypodensities in segment IV, likely part of steatosis. Advised ultrasound correlation. Uncomplicated colonic diverticulosis, Hiatal hernia. Electronically signed by Claudio Pavon 09-29-2024 7:28 PM
[2024-09-29 19:35] LABS: Appearance Urine Clear (Clear); Bacteria Urine Automated None Seen (None Seen); Cast Urine Automated 0-2 /lpf (0-2); Epithelial Cell Urine Auto 0-2 /hpf (0-2); Glucose Urine UA Negative (Negative); RBC Urine Automated 0-2 /hpf (0-2); WBC Urine Automated 0-5 /hpf (0-5)
[2024-09-29] MEDS: THIAMINE HCL 500 MG in SODIUM CHLORIDE 0.9% 50 ML IV STA (19:49)
--- NOTE | 2024-09-29 19:53 | History & Physical Report ---
Date of Service September 29, 2024 Assessment & Plan (1) Alcohol abuse: (2) Electrolyte abnormality: (3) Chronic systolic CHF (congestive heart failure): (4) Depression with anxiety: (5) Hypertension: Plan 69yo male with history of HTN, NICM with AICD in place, EtOH abuse presenting wi th complaint of abdominal distention, overall feeling unwell. On exam he does appear anxious, no tremors. No significant ascites appreciated during my physical exam. No RUQ tenderness. Only trace bilateral LE edema. #EtOH abuse - patient drinks approximately 10 shots of whiskey daily. Last drink was this AM at 06:00. No prior history of withdrawal symptoms, however, n o episodes of prolonged abstinence. -Admit to PCU -Thiamine 500mg IV x 1 dose now and 100mg IV daily -Folate 1mg IV daily -Ativan per AWSS -Will give Valium 10mg po x 1 dose now and additional doses if patient is requiring significant amounts of Ativan #Electrolyte abnormality - patient with hypokalemia and hypomagnesemia. Likely secondary to poor PO intake, heavy EtOH use. K=2.4, Mg=1.6. Thus far has received KCl 40 meq and Mg x 1gm -Will give additional KCl 60mEq -Mg x 1 gm -Repeat chemistry in AM -LR at 125mL/hr x 1L #Elevated Cr = 2.2. Last normal at 1.37 on 07/04/24. Patient appears dry on exam. Reports he has not been eating well -Avoid nephrotoxic agents -Renal dosing where needed -LR at 125mL/hr x 1L -Repeat chemistry in AM #Abdominal discomfort - no true ascites appreciated. CT results as above. Labs do not suggest cirrhosis - INR WNL -Check RUQUS #HFrEF - patient with NICM likely secondary to valvular heart disease, EtOH use. EF=30% on last echo in 2022. He has an AICD in place- no discharges. Uncertain if he is compliant with his home medications -Continue Metoprolol 50mg po qAM -Hold Entresto, Lasix, Spironolactone and Lisinopril in setting of elevated Cr. #Anxiety/Depression -Continue Escitalopram 10mg po qAM History of Present Illness Chief Complaint: abdominal distention Primary Care Provider: MARLENE Stanton Carlton Jose is a 69yo male with history of HTN, NICM with EF of 30% in 06/2022) with AICD in place presenting with worsening abdominal distention and "not feeling well". Patient lives at home alone. His called his son today and states that he is wasn't feeling well. Patient states he has not eaten a meal for the last 3 days. He has been drinking alcohol and iced tea. He had a bar over his door and was not seeing anyone. He drinks daily - approximately 10 shots of whiskey per day with last drink being today 09/29/24 at 06:00. Patient with no prior history of withdrawal but reports he has not stropped drinking for any significant time period over the last 3 years. He reports diffuse body pain, fatigue and has had nausea and vomiting since returning from [place]. He also reports swelling in his legs bilaterally and swelling in his abdomen. No additional complaints. Patient denies fever, chills, cough, SOB, diarrhea. Likely has not been taking his medications as prescribed - states he has not been taking his anxiety pills, not sure about the others. In the ER he is afebrile, hypertensive and tachycardic ER Course: Zofran 4mg IV Mg x 1gm KCL 40mEq NSS x 1L Thiamine 500mg IV Ativan 1mg IV Allergies Allergy/AdvReac Type Severity Reaction Status Date / Time oxycodone [From Percodan] AdvReac Mild Dizziness Verified 09/29/24 17:44 Home Medications Medication Instructions Recorded Confirmed Type aspirin 81 mg tablet,delayed 81 mg PO DAILY 04/21/22 09/29/24 History release escitalopram oxalate 10 mg tablet 10 mg PO QAM #30 tabs 04/25/22 09/29/24 Rx furosemide 40 mg tablet 40 mg PO QAM #30 tabs 04/25/22 09/29/24 Rx magnesium oxide 400 mg (241.3 mg 400 mg PO QAM #30 tabs 04/25/22 09/29/24 Rx magnesium) tablet metoprolol succinate 50 mg 50 mg PO QAM #30 tabs 04/25/22 09/29/24 Rx tablet,extended release 24 hr sacubitril 49 mg-valsartan 51 mg 1 tab PO BID #60 tabs 04/25/22 09/29/24 Rx tablet (Entresto) gabapentin 100 mg capsule 100 mg PO HS 07/03/24 09/29/24 History albuterol sulfate 90 mcg/actuation 2 puff inhalation QID PRN 09/29/24 09/29/24 History aerosol inhaler Shortness Of Breath Or Wheezing coenzyme Q10 100 mg capsule (Co 100 mg PO DAILY 09/29/24 09/29/24 History Q-10) lisinopril 20 mg tablet 20 mg PO DAILY 09/29/24 09/29/24 History potassium chloride 20 mEq 20 meq PO DAILY 09/29/24 09/29/24 History tablet,extended release spironolactone 25 mg tablet 25 mg PO DAILY 09/29/24 09/29/24 History Past Med/Surg History Problem List (Updated 09/29/24 @ 21:24 by Beth Salazar DO) Electrolyte abnormality Patella fracture Fracture of right tibial plateau (~07/05/24) Rhus dermatitis Chronic systolic CHF (congestive heart failure) S/P ICD (internal cardiac defibrillator) procedure Nonischemic cardiomyopathy NSVT (nonsustained ventricular tachycardia) Partial thickness burn of ankle Effusion of elbow joint, left Second degree burn of ankle Left inguinal hernia Foot pain, left Benign prostatic hyperplasia with urinary obstruction (Acute) Inhibited sexual excitement (Acute) Male erectile disorder (Acute) Urinary frequency (Acute) Urinary urgency (Acute) Shoulder pain, acute Abdominal pain (Acute) Medical History Acute on chronic systolic heart failure Depression with anxiety Hypertension Asthma Alcohol abuse Mitral regurgitation Surgical History History of mitral valve repair Hx of heart surgery History of back surgery History of ankle surgery Family History Brother Diabetes Mother Cancer Social History Smoking Status: Current every day smoker Tobacco Type: Cigarettes Cigarettes Per Day: 1; Do You Dip or Chew Tobacco: No; Hx Alcohol Use: Yes Alcohol type: hard liquor Hx Substance Use: Yes Last Used Substance: Unknown Last Used Substance Other:: last used at 4pm yesterday Substance Use Type Other:: "I just take 1 hit" "I'll be stoned all day long with one little hit" Preferred Language: [place] Communication Ability: Impaired Communication Ability Comment: pt states he can read enough to get by but is not a very good reader Colorist Formulator Required: No Beliefs That Will Affect Care: None marital status: Legally Current Living Situation: Alone 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 Feels Safe at Home: Hesitant to Answer Assistive Devices: Walker Review of Systems Review of Systems: All systems reviewed & are unremarkable except as noted in HPI & below Physical Exam Physical Exam: General: patient resting comfortably, NAD, anxious but non-toxic in appearance, AA&O x 4 Skin: warm, dry, intact, no rashes or lesions HEENT: NC/AT, PERRL, EOMI, anicteric sclera, conjunctiva without injection, external ear normal to inspection and nontender, nares patent, dry mucus membranes, poor dentition, no oropharyngeal lesions, neck supple, trachea midline, no LAD, no thyromegaly, no JVD Heart: +S1/S2, regular, no m/r/g, AICD in place Lungs: equal air entry bilaterally, no rales/rhonchi/wheezes Abd: +BS, soft, NT/ND, no masses/organomegaly/ascites Ext: warm, 2+ pulses in UE/LE bilaterally, no clubbing/cyanosis trace pitting edema Neuro: nonfocal, patient AA&O x 4, speech intact, no facial droop, moving all extremities on command with equal strength 5/5 RLE in walking boot due to tibial plateau fracture Results & Data Results & Data Vital Signs (Past 12 Hours) Vital Signs Temp Pulse Pulse Resp BP BP Pulse Ox 09/29/24 19:23 109 H 09/29/24 18:54 101 H 18 137/104 H 97 09/29/24 17:00 98 H 18 143/92 H 93 09/29/24 15:41 83 20 123/82 93 09/29/24 15:32 96 H 09/29/24 14:54 36.6 C 94 H 22 119/79 97 O2 Del Method 09/29/24 19:23 09/29/24 18:54 Room Air 09/29/24 17:00 Room Air 09/29/24 15:41 Room Air 09/29/24 15:32 09/29/24 14:54 Room Air Laboratory Results Laboratory Results WBC 5.56 K/ul (4.8-10.8) 09/29/24 15:38 RBC 3.72 M/uL (4.70-6.10) L 09/29/24 15:38 Hgb 13.1 g/dl (14.0-18.0) L 09/29/24 15:38 Hct 37.7 % (42.0-52.0) L 09/29/24 15:38 MCV 101.3 fL (80.0-100.0) H 09/29/24 15:38 MCH 35.2 pg (25.0-34.0) H 09/29/24 15:38 MCHC 34.7 g/dL (32.0-36.0) 09/29/24 15:38 RDW Std Deviation 51.8 fL (36.4-46.3) H 09/29/24 15:38 RDW Coeff of Donna 13.8 % (11.5-14.5) 09/29/24 15:38 Plt Count 252 K/uL (130-400) 09/29/24 15:38 MPV 9.6 fL (9.4-12.4) 09/29/24 15:38 Immature Gran % (Auto) 0.4 % 09/29/24 15:38 Neut % (Auto) 56.4 % 09/29/24 15:38 Lymph % (Auto) 29.9 % 09/29/24 15:38 [place] % (Auto) 11.7 % 09/29/24 15:38 Eos % (Auto) 1.1 % 09/29/24 15:38 Baso % (Auto) 0.5 % 09/29/24 15:38 Neut # (Auto) 3.14 K/uL (1.40-6.50) 09/29/24 15:38 Lymph # (Auto) 1.66 K/uL (1.20-3.40) 09/29/24 15:38 [place] # (Auto) 0.65 K/uL (0.11-0.59) H 09/29/24 15:38 Eos # (Auto) 0.06 K/uL (0.00-0.50) 09/29/24 15:38 Baso # (Auto) 0.03 K/uL (0.00-0.20) 09/29/24 15:38 Immature Gran # (Auto) 0.02 K/uL (0.01-0.20) 09/29/24 15:38 PT 11.8 Seconds (9.0-12.0) 09/29/24 19:03 INR 1.1 (0.9-1.1) 09/29/24 19:03 Sodium 138 mmol/L (136-145) 09/29/24 15:38 Potassium 2.4 mmol/L (3.5-5.1) L* 09/29/24 15:38 Chloride 76 mmol/L (98-107) L 09/29/24 15:38 Carbon Dioxide 42 mmol/L (21-32) H* 09/29/24 15:38 Anion Gap 20 (3-11) H 09/29/24 15:38 BUN 17 mg/dl (6-23) 09/29/24 15:38 Creatinine 2.20 mg/dl (0.6-1.4) H 09/29/24 15:38 Est Cr Clr Drug Dosing 34.2 ml/min 09/29/24 15:38 eGFR 31.83 09/29/24 15:38 BUN/Creatinine Ratio 7.7 (10-20) L 09/29/24 15:38 Glucose 89 mg/dl (70-99(Fasting)) 09/29/24 15:38 Calcium 9.1 mg/dl (8.6-10.3) 09/29/24 15:38 Magnesium 1.6 mg/dl (1.7-2.4) L 09/29/24 15:38 Total Bilirubin 1.1 mg/dl (0.2-1.0) H 09/29/24 15:38 AST 58 U/L (13-39) H 09/29/24 15:38 ALT 25 U/L (7-52) 09/29/24 15:38 Alkaline Phosphatase 168 U/L (34-104) H 09/29/24 15:38 Troponin I High Sens 22.9 pg/ml (0-20) H 09/29/24 17:12 B-Natriuretic Peptide 246 pg/ml (0-100) H 09/29/24 15:38 Total Protein 6.9 gm/dl (6.0-8.3) 09/29/24 15:38 Albumin 3.1 gm/dl (3.4-5.0) L 09/29/24 15:38 Globulin 3.8 gm/dl (2.5-4.0) 09/29/24 15:38 Albumin/Globulin Ratio 0.8 (0.9-2) L 09/29/24 15:38 Urine Color Yellow 09/29/24 19:05 Urine Appearance Clear (Clear) 09/29/24 19:05 Urine pH >= 9.0 (4.5-7.5) H 09/29/24 19:05 Ur Specific [place] 1.009 (1.000-1.030) 09/29/24 19:05 Urine Protein 1+ (Negative) H 09/29/24 19:05 Urine Glucose (UA) Negative (Negative) 09/29/24 19:05 Urine Ketones Negative (Negative) 09/29/24 19:05 Urine Blood Negative (Negative) 09/29/24 19:05 Urine Nitrite Negative (Negative) 09/29/24 19:05 Urine Bilirubin Negative (Negative) 09/29/24 19:05 Urine Urobilinogen Negative (Negative) 09/29/24 19:05 Ur Leukocyte Esterase Negative (Negative) 09/29/24 19:05 Urine WBC (Auto) 0-5 /hpf (0-5) 09/29/24 19:05 Urine RBC (Auto) 0-2 /hpf (0-2) 09/29/24 19:05 U Hyaline Cast (Auto) 0-2 /lpf (0-2) 09/29/24 19:05 U Epithel Cells (Auto) 0-2 /hpf (0-2) 09/29/24 19:05 Urine Bacteria (Auto) None Seen (None Seen) 09/29/24 19:05 Urine Comment 09/29/24 19:05 Ethyl Alcohol mg/dL 143.3 mg/dl (<10.0) H 09/29/24 17:12 Impressions Chest X-Ray 09/29/24 14:59 EXAM: X-ray chest one-view portable CLINICAL HISTORY: Chest pain PRIORS: 07/21/2022 TECHNIQUE: Frontal view chest FINDINGS: The chest is well-expanded. Left-sided cardiac pacing device noted with leads present. Median sternotomy wires and a prosthetic valve present. No airspace consolidation, effusion or congestive changes. Heart size is normal. No pneumothorax. Trachea is patent. Osseous structures demonstrate no acute abnormality. No radiopaque foreign body. IMPRESSION: No plain film evidence of an acute cardiopulmonary process. Electronically signed by Sabrina Joy 09-29-2024 3:39 PM Abdomen/Pelvis CT 09/29/24 16:44 EXAM: CT abd pelvis wo con CLINICAL HISTORY: Abdominal pain, distension. TECHNIQUE: Non-contrast CT of the abdomen and pelvis was performed, with the following protocol: axial images, and reconstructed coronal and sagittal images. One of the following dose reduction techniques was utilized for this exam: Automated exposure control, adjustment of the mA and/or kV according to patient size, and use of iterative reconstruction. COMPARISON: No prior studies available for comparison FINDINGS: Motion artifacts are present. Abdomen: Liver: Normal in size and shape. Decreased parenchymal attenuation suggestive of steatosis. Multiple tiny scattered calcifications, likely granulomas. Irregular hypodense areas are seen in the hepatic segment IV. Gallbladder and Biliary System: The gallbladder is normal in size and shape. No wall thickening, pericholecystic fluid, or gallstones were identified. Pancreas: Pancreatic head, body, and tail are visualized and appear normal in size and density. No pancreatic masses or calcifications were noted. Spleen: Normal in size, shape, and density. No splenic lesions or masses were identified. Multiple tiny calcifications are seen, likely granulomas. Appendix: The appendix is normal in size without periappendiceal fat stranding, and without an appendicolith. No evidence of appendiceal abscess or perforation. Kidneys and Adrenal Glands: Both kidneys are normal in size, shape, and position. Cortical thickness is within normal limits. No renal calculi or hydronephrosis. Thickened and nodular left adrenal gland. Mild bilateral perinephric fat stranding. Abdominal Aorta and Vessels: No evidence of an aneurysm. Mild atherosclerosis. Pelvis: Urinary Bladder: Normal in contour and wall thickness. No intraluminal lesions. Prostate: Normal in size and contour. No masses or abnormal thickening. Seminal Vesicles: Normal appearance without abnormal enlargement or mass. Peritoneal and Retroperitoneal Structures: No free fluid or abnormal fluid collections were identified within the abdomen or pelvis. No lymphadenopathy was noted. Bowel: Hiatal hernia. Uncomplicated colonic diverticulosis. The visualized bowel loops are normal in caliber and appearance. No evidence of bowel obstruction or wall thickening. Bones and Soft Tissues: Pelvic bones and soft tissues are unremarkable. No fractures or abnormal masses were identified. Small fat-containing left inguinal hernia. Degenerative changes in the spine. IMPRESSION: No bowel obstruction. Hepatic steatosis, with areas of irregular hypodensities in segment IV, likely part of steatosis. Advised ultrasound correlation. Uncomplicated colonic diverticulosis, Hiatal hernia. Electronically signed by Claudio Pavon 09-29-2024 7:28 PM PG Care Time/CCT Total # of Minutes Spent Total Time Spent with Patient: Total time spent is greater than 50% in coordination of care (as documented) at patient's floor/unit and/or counseling patient: Coding Level of Care Code 30724 INT INP/OBS CARE 3/75MIN Diagnoses Alcohol abuse F10.10 Electrolyte abnormality E87.8 Chronic systolic CHF (congestive heart failure) I50.22 Depression with anxiety F41.8 Hypertension I10
[2024-09-29 20:11] LABS: INR 1.1 (0.9-1.1); Prothrombin Time 11.8 Seconds (9.0-12.0)
[2024-09-29] MEDS ORDERED: ALBUTEROL HFA 8 GM INHALER INH PRN (21:14)
[2024-09-29] MEDS ORDERED: Ativan IV Alcohol Withdrawal--Active Protocol IV PRN (21:14)
[2024-09-29] MEDS ORDERED: ACETAMINOPHEN 325 MG TAB PO PRN (21:14)
[2024-09-29] MEDS: LACTATED RINGER'S 1,000 ML IV SCH (21:42)
[2024-09-29] MEDS: CHLORASEPTIC (PHENOL) 1.4% SOLN 180 ML BTL MT PRN (22:39)
[2024-09-30 05:21] LABS: Amphetamines+Metham, Urine Neg (Neg); MDMA (Ecstacy), Urine Neg (Neg); Marijuana, Urine Neg (Neg)
[2024-09-30 07:14] LABS: Hematocrit (blood only) 39.2 % (42.0-52.0); Hemoglobin 13.7 g/dl (14.0-18.0); Mean Corpuscular Hemoglobin 36.0 pg (25.0-34.0); Mean Corpuscular Volume 102.9 fL (80.0-100.0); Platelet Count 231 K/uL (130-400); RDW Standard Deviation 52.0 fL (36.4-46.3); Red Blood Count 3.81 M/uL (4.70-6.10); White Blood Count 9.38 K/ul (4.8-10.8)
[2024-09-30 07:41] LABS: Alanine Aminotransferase 22.0 U/L (7-52); Alkaline Phosphatase 164.0 U/L (34-104); Anion Gap 7.0 (3-11); Bilirubin,Total 1.4 mg/dl (0.2-1.0); Blood Urea Nitrogen 18.0 mg/dl (6-23); Calcium 8.7 mg/dl (8.6-10.3); Carbon Dioxide 45.0 mmol/L (21-32); Chloride 87.0 mmol/L (98-107); Creatinine Clr Calc Pharmacy 39.6 ml/min; Glucose 125.0 mg/dl (70-99(Fasting)); Magnesium 2.0 mg/dl (1.7-2.4); Potassium 3.2 mmol/L (3.5-5.1); Sodium 139.0 mmol/L (136-145); Total Protein 6.6 gm/dl (6.0-8.3)
--- NOTE | 2024-09-30 07:48 | Ultrasound Report ---
EXAM: US liver CLINICAL HISTORY: HX: PREV CT 09/29/24. ABN LFTs. H/O HEAVY ALCOHOL USE TECHNIQUE: Ultrasound examination of the RUQ was performed using a [high-frequency transducer]. Scanning was performed with the patient in the supine position. COMPARISON: Prior CT 09/29/2024 FINDINGS: Liver: Liver size: [Measurements in length ( 16.8 cm) Liver appears heterogenous with echogenic echotexture. With multiple scattered echogenic foci, the largest one = 2mm ( old granulomatosis infection) No evidence of focal lesions, cysts, or masses. Hepatic vasculature appears normal. Gallbladder: Gallbladder size: .The gallbladder is visualized and appears normal in size and shape, harboring layering bile with fluid fluid level, and biliary sludge with mural thickness = 1.3 mm No gallstones or pericholecystic fluid noted. No evidence of gallbladder wall edema or signs of acute cholecystitis. Negative Logan sign. Biliary Tree: Common bile duct diameter: [Measurement = 3.6 mm ]. The common bile duct is within normal limits in caliber and not dilated. No evidence of choledocholithiasis or biliary obstruction. Right Kidney: Right kidney size: .The right kidney appears normal in size with preserved corticomedullary differentiation. No evidence of hydronephrosis, renal cysts, or masses. IMPRESSION: 1. No interval changes 2. Mild hepatomegaly with hepatic steatosis ( unchanged ). 3. Multiple scattered hepatic calcified foci; old granulomatosis infection. ( unchanged) 4. Gall bladder biliary sludge ( not seen in CT ). RECOMMENDATIONS: Clinical correlation with symptoms and further evaluation as indicated. Electronically signed by Claudio Pavon 09-30-2024 07:47 AM
[2024-09-30] MEDS: THIAMINE HCL 100 MG in SYRINGE 9 ML IV SCH (09:05)
[2024-09-30] MEDS: FOLIC ACID 1 MG in SYRINGE 9.8 ML IV SCH (09:05)
[2024-09-30] MEDS: ESCITALOPRAM OXALATE 10 MG TAB PO SCH (09:47)
[2024-09-30] MEDS: ASPIRIN 81 MG ECTAB PO SCH (09:47)
[2024-09-30] MEDS: METOPROLOL SUCC 50MG EXT REL TAB PO SCH (09:48)
[2024-09-30] MEDS: MULTIVITAMIN TAB PO SCH (09:48)
[2024-09-30] MEDS: PNEUMOCOCCAL VACCINE (PCV20) 20-VAL CONJ-DIP CRM/PF 0.5 ML SYR IM ONE (10:09)
[2024-09-30 11:25] LABS: iSTAT Art Bld Gas Base Excess 19.0 meg/L (-9-1.8)
[2024-09-30] MEDS: POTASSIUM CHLORIDE / WTR 10 MEQ/100 ML PLCT IV SCH (12:43)
[2024-09-30] MEDS ORDERED: KETAMINE HCL 10MG/ML SYR IV STA (13:11)
[2024-09-30] MEDS ORDERED: KETAMINE HCL INJ 50 MG/ML 10 ML VIAL IV STA (13:26)
[2024-09-30] MEDS ORDERED: Nursing to Pharmacy Communication SCH (13:30)
--- NOTE | 2024-09-30 13:30 | Hospitalist Progress Note ---
Date of Service September 30, 2024 Assessment & Plan (1) Alcohol abuse: (2) Electrolyte abnormality: (3) Chronic systolic CHF (congestive heart failure): (4) Depression with anxiety: (5) Hypertension: (6) Acute alcohol intoxication delirium with moderate or severe use disorder: Plan 69 years old male with PMH of FULL CODE @ home, HTN, non-ischemic cardiomyopathy with chronic systolic CHF with LVEF 30%, normal RV systolic function, and indeterminate LV diastolic function, s/p AICD, and ongoing EtOH abuse who presented to [facility] ER on 09/29/2024 with comsplaint of abdominal distention, generally overall feeling unwell. On exam he did not appear anxious, no tremors. No significant ascites appreciated during my physical exam. No RUQ tenderness. Only trace bilateral LE edema. Patient was subsequently admitted to the inpatient hospitalist service @ [facility] on 09/29/2024 with the following diagnoses: 1. Acute ETOH intoxication with ETOH 143.3 mg/dL (09/29/2024, 5:12pm). 2. Acute ETOH withdrawal with last swig of whisky (09/29/2024, 6:00am). 3. Acute hypokalemia with admission K 2.4 mmol/L (09/29/2024, 3:38pm). 4. Acute hypomagnesemia with admission Mg 1.6 mg/dL (09/29/2024, 3:38pm). 5. Acute hypophosphatemia with admission PO4 2.0 mg/dL (, 9:14pm). 6. Acute hypoxic respiratory failure with O2 saturation 71% on room air (09/30/2024, 2:10am), now with O2 saturation 88-89% on 10 liters/minute O2 via oxymask (09/30/2024, 7:30am). 7. Acute hypercapnic respiratory failure with CO2 45 mmol/L (09/30/2024, 7:03am). 8. Acute kidney injury with admission creatinine 2.20 mg/dL (09/29/2024, 3:38pm). 9. Acute type II NSTEMI with troponin #1 21.8 pg/mL (, 3:38pm) and troponin #2 22.9 pg/mL (, 5:12pm). The following medical issues are being addressed on 09/30/2024: 1. Acute ETOH intoxication with ETOH 143.3 mg/dL (09/29/2024, 5:12pm). Continue ETOH abstinence while in [facility]. 2. Acute ETOH withdrawal with last swig of whisky (09/29/2024, 6:00am). Continue telemetry, CIWA scale scoring with ativan prn, MVI, thiamine, and folate supplementation. 3. Acute hypokalemia with admission K 2.4 mmol/L (09/29/2024, 3:38pm). PERSISTENT s/p supplement KCl 40meq PO x 1 dose (09/29/2024, 6:15pm) with post- supplement K 3.2 mmol/L (09/30/2024, 7:03am) and current K 3.0 mmol/L (09/30/2024, 11:09am). Patient subsequently received KCl 10meq IV q1h x 6 bags (09/30/2024, 12:43pm, 12:44pm, 1:34pm). I will check repeat K level in the 10/01/2024 am. Of note, etiology of acute hypokalemia is most probably due to chronic ETOH-mediated berta-uresis. 4. Acute hypomagnesemia with admission Mg 1.6 mg/dL (09/29/2024, 3:38pm). RESOLVED s/p supplement with magnesium sulfate 1g IV x 2 doses (09/29/2024, 6:13pm, 9:42pm) with post-supplement Mg 2.0 mg/dL (09/30/2024, 7:03am). I will check repeat Mg level in the 10/01/2024 am. Of note, etiology of acute hypomagnesemia was most probably due to chronic ETOH-mediated magne-uresis. 5. Acute hypophosphatemia with admission PO4 2.0 mg/dL (, 9:14pm). No KPO4 supplement given thus far. Check repeat PO4 level now (09/30/2024, 2:28pm) and supplement to attain/maintain PO4 level > 2.5 mg/dL. 6. Acute hypoxic respiratory failure with O2 saturation 71% on room air (09/30/2024, 2:10am), now with O2 saturation 88-89% on 10 liters/minute O2 via oxymask (09/30/2024, 7:30am). Etiology of acute hypoxic respiratory failure remains unclear as patient remains afebrile with WBC remaining normal (cf., admission WBC 5.56, N56 L30 M12 E1 B1 (09/29/2024, 3:38pm) and repeat WBC 9.38, no differential (09/30/2024, 7:03am) and portable CXR (09/29/2024): negative for infiltrate/consolidation, effusion, cardiomegaly, pulmonary vascular congestion, or pneumothorax (by my review). Subsequently, I have ordered procalcitonin (09/30/2024, 2:32pm), lactic acid (09/30/2024, 2:32pm), and portable CXR (09/30/2024, 2:33pm). 7. Acute hypercapnic respiratory failure with CO2 45 mmol/L (09/30/2024, 7:03am). Etiology of of acute hypercapnic respiratory failure remains unclear in this patient who is actually hyperventilating at 29 breaths/minute (09/30/2024, 7:30am) to 34 breaths/minute (09/30/2024, 1:03pm). I will check repeat CO2 level in the 10/01/2024 am. In the interim, I have ordered portable CXR (09/30/2024, 2:33pm) to check for evidence of COPD, bronchiectasis/fibrosis, and/or atelectasis, which can lead to hypercapnia. 8. Acute kidney injury with admission creatinine 2.20 mg/dL (09/29/2024, 3:38pm). cf., admission creatinine 2.20 mg/dL (09/29/2024, 3:38pm). cf., current creatinine 1.90 mg/dL (09/30/2024, 7:03am). cf., baseline creatinine range, 0.95 mg/dL (04/25/2022, 6:21am) to 1.37 mg/dL (07/04/2024, 7:12am). Etiology of acute kidney injury remains unclear, but may be due to patient's home-scheduled sacubitril 49mg - valsartan 51mg PO bid, lasix 40mg PO qam, spironolactone 25mg PO daily, and lisinopril 20mg PO daily given the potential for any/all of these agents to cause further renal embarrassment. Hence, I have opted to hold OFF patient's home-scheduled sacubitril 49mg - valsartan 51mg PO bid, lasix 40mg PO qam, spironolactone 25mg PO daily, and lisinopril 20mg PO daily, and I will check repeat creatinine level in the 10/01/2024 a m. 9. Acute type II NSTEMI with troponin #1 21.8 pg/mL (, 3:38pm) and troponin #2 22.9 pg/mL (, 5:12pm). Etiology of nominally elevated troponin levels remains unclear, but is most probably due to demand ischemia, which in turn, is due to acute hypoxic respiratory failure. Hence, I have opted to observe this laboratory anomaly at this time. 10. Chronic systolic CHF with reduced LVEF 30%, normal RV systolic function, inability to assess LV diastolic function due to prior mitral valve repair (as reported on 06/08/2022 TTE, CARDS Dr. Olman Collins). s/p AICD. Continue home- scheduled metoprolol succinate 50mg PO qam. Hold OFF home-scheduled sacubitril 49mg - valsartan 51mg PO bid, lasix 40mg PO qam, spironolactone 25mg PO daily, and lisinopril 20mg PO daily, given the potential for any/all of these agents to cause further renal embarrassment. cf., admission creatinine 2.20 mg/dL (09/29/2024, 3:38pm). cf., current creatinine 1.90 mg/dL (09/30/2024, 7:03am). cf., baseline creatinine range, 0.95 mg/dL (04/25/2022, 6:21am) to 1.37 mg/dL (07/04/2024, 7:12am). I will check repeat creatinine level in the 10/01/2024 am. Admission and Anticipated Discharge Date Admission Date: September 29, 2024 Subjective Unavailable as patient remains lethargic, obtunded, and non-verbal. Review of Systems Constitutional: Unavailable as patient remains lethargic, obtunded, and non-verbal. Physical Exam Constitutional: General: Comfortable, lethargic, obtunded. Non-verbal with mouth hanging wide open on 10 liters/minute oxymask covering patient's mouth and nose (09/30/2024, 7:30am). HEENT: Normocephalic, atraumatic. Pupils equally round and reactive to light. No nystagmus, gaze paresis, anisocoria, miosis, mydriasis, hyphema, scleral injection, conjunctivitis, or pterygium. No otorrhea. No pharyngeal erythema, edema, or discharge. Neck: Supple, no stridor, bruit, goiter, or hepato-jugular reflux. Jugular venous pressure is estimated to be 3 cm above the sternal angle of [place], which in turn, is 5 cm above the level of the right atrium; with jugular venous pressure estimated to be 8 cm, then, there is no jugular venous distention on 09/30/2024. Lymphatics: No cervical (anterior/posterior), supraclavicular, infraclavicular, axillary, epitrochlear, or inguinal adenopathy. Chest: Symmetric rise and fall with respirations. Non-tender to palpation. Lungs: Clear to auscultation and percussion. No audible expiratory wheeze, egophony, pectoriloquy, increase in tactile fremitus, or flatness/dullness to percussion at the bases. Heart: Increased rate. Regular rhythm. S1 and S2 noted. No S3 or S4 summation gallop. No tripartite friction rub. Grade II/ early systolic murmur @ LLSB without radiation to the carotids, axilla, or back, and which remains invariant in regards to the respiratory cycle. Abdomen: Soft, non-tender, non-distended. No rebound, guarding, Logan's sign, or organomegaly. Bowel sounds auscultated in all 4 quadrants. Extremities: No clubbing, cyanosis, or edema in upper extremities or lower extremities bilaterally. 2+ pedal pulses bilaterally. Skin: No decubitus ulcer or enanthem. Genito-urinary: No urethral discharge. No poole catheter. Neurology: No myoclonus, tremors, or tics. Psychiatry: No homicidal ideation. No suicidal ideation. No flat affect; smiles appropriately. Results & Data Results & Data Vital Signs (Past 12 Hours) Vital Signs Temp Pulse Pulse Resp BP BP Pulse Ox 09/30/24 12:40 123 H 24 128/99 09/30/24 10:37 09/30/24 07:30 121 H 29 H 158/105 H 88 L 09/30/24 07:25 112 H 09/30/24 06:33 36.4 C L 115 H 18 159/113 H 97 09/30/24 04:31 90 09/30/24 04:24 36.5 C 109 H 18 150/101 H 76 L 09/30/24 02:10 36.5 C 107 H 18 160/108 H 93 09/30/24 02:04 108 H 19 160/103 H 93 O2 Del Method O2 Flow Rate 09/30/24 12:40 09/30/24 10:37 Oxymask 10 09/30/24 07:30 Oxymask 10 09/30/24 07:25 09/30/24 06:33 Oxymask 6 09/30/24 04:31 Nasal Cannula 6 09/30/24 04:24 Room Air 09/30/24 02:10 Room Air 09/30/24 02:04 Room Air Laboratory Results Abnormal lab results 09/29/24 09/29/24 09/29/24 Range/Units 15:38 17:12 19:05 RBC 3.72 L (4.70-6.10) M/uL Hgb 13.1 L (14.0-18.0) g/dl Hct 37.7 L (42.0-52.0) % MCV 101.3 H (80.0-100.0) fL MCH 35.2 H (25.0-34.0) pg RDW Std Deviation 51.8 H (36.4-46.3) fL Mineral # (Auto) 0.65 H (0.11-0.59) K/uL POC pH (7.35-7.45) POC pCO2 (35-46) mmHg POC pO2 (80-95) mmHg POC HCO3 (19-24) smiley/L POC Total CO2 (24-31) mmol/L POC Base Excess (-9-1.8) smiley/L POC ABG O2 Sat (90-95) % POC Potassium (3.3-5.0) mmol/L Potassium 2.4 L* (3.5-5.1) mmol/L Chloride 76 L (98-107) mmol/L Carbon Dioxide 42 H* (21-32) mmol/L Anion Gap 20 H (3-11) Creatinine 2.20 H (0.6-1.4) mg/dl BUN/Creatinine Ratio 7.7 L (10-20) Glucose (70-99(Fasting)) mg/dl Phosphorus (2.5-4.9) mg/dl Magnesium 1.6 L (1.7-2.4) mg/dl Total Bilirubin 1.1 H (0.2-1.0) mg/dl Direct Bilirubin (0-0.2) mg/dl AST 58 H (13-39) U/L Alkaline Phosphatase 168 H (34-104) U/L Troponin I High Sens 21.8 H 22.9 H (0-20) pg/ml B-Natriuretic Peptide 246 H (0-100) pg/ml Albumin 3.1 L (3.4-5.0) gm/dl Albumin/Globulin Ratio 0.8 L (0.9-2) Urine pH >= 9.0 H (4.5-7.5) Urine Protein 1+ H (Negative) U Benzodiazepines Scrn (Neg) Ethyl Alcohol mg/dL 143.3 H (<10.0) mg/dl 09/29/24 09/30/24 09/30/24 Range/Units 21:14 04:05 07:03 RBC 3.81 L (4.70-6.10) M/uL Hgb 13.7 L (14.0-18.0) g/dl Hct 39.2 L (42.0-52.0) % MCV 102.9 H (80.0-100.0) fL MCH 36.0 H (25.0-34.0) pg RDW Std Deviation 52.0 H (36.4-46.3) fL Mineral # (Auto) (0.11-0.59) K/uL POC pH (7.35-7.45) POC pCO2 (35-46) mmHg POC pO2 (80-95) mmHg POC HCO3 (19-24) smiley/L POC Total CO2 (24-31) mmol/L POC Base Excess (-9-1.8) smiley/L POC ABG O2 Sat (90-95) % POC Potassium (3.3-5.0) mmol/L Potassium 3.2 L D (3.5-5.1) mmol/L Chloride 87 L (98-107) mmol/L Carbon Dioxide 45 H* (21-32) mmol/L Anion Gap (3-11) Creatinine 1.90 H D (0.6-1.4) mg/dl BUN/Creatinine Ratio 9.5 L (10-20) Glucose 125 H (70-99(Fasting)) mg/dl Phosphorus 2.0 L (2.5-4.9) mg/dl Magnesium (1.7-2.4) mg/dl Total Bilirubin 1.4 H (0.2-1.0) mg/dl Direct Bilirubin 0.5 H (0-0.2) mg/dl AST 45 H (13-39) U/L Alkaline Phosphatase 164 H (34-104) U/L Troponin I High Sens (0-20) pg/ml B-Natriuretic Peptide (0-100) pg/ml Albumin 3.1 L (3.4-5.0) gm/dl Albumin/Globulin Ratio (0.9-2) Urine pH (4.5-7.5) Urine Protein (Negative) U Benzodiazepines Scrn Pos H (Neg) Ethyl Alcohol mg/dL (<10.0) mg/dl 09/30/24 Range/Units 11:09 RBC (4.70-6.10) M/uL Hgb (14.0-18.0) g/dl Hct (42.0-52.0) % MCV (80.0-100.0) fL MCH (25.0-34.0) pg RDW Std Deviation (36.4-46.3) fL Mineral # (Auto) (0.11-0.59) K/uL POC pH 7.48 H (7.35-7.45) POC pCO2 57 H (35-46) mmHg POC pO2 52 L (80-95) mmHg POC HCO3 43 H (19-24) smiley/L POC Total CO2 44 H* (24-31) mmol/L POC Base Excess 19.0 H (-9-1.8) smiley/L POC ABG O2 Sat 88.0 L (90-95) % POC Potassium 3.0 L (3.3-5.0) mmol/L Potassium (3.5-5.1) mmol/L Chloride (98-107) mmol/L Carbon Dioxide (21-32) mmol/L Anion Gap (3-11) Creatinine (0.6-1.4) mg/dl BUN/Creatinine Ratio (10-20) Glucose (70-99(Fasting)) mg/dl Phosphorus (2.5-4.9) mg/dl Magnesium (1.7-2.4) mg/dl Total Bilirubin (0.2-1.0) mg/dl Direct Bilirubin (0-0.2) mg/dl AST (13-39) U/L Alkaline Phosphatase (34-104) U/L Troponin I High Sens (0-20) pg/ml B-Natriuretic Peptide (0-100) pg/ml Albumin (3.4-5.0) gm/dl Albumin/Globulin Ratio (0.9-2) Urine pH (4.5-7.5) Urine Protein (Negative) U Benzodiazepines Scrn (Neg) Ethyl Alcohol mg/dL (<10.0) mg/dl PG Care Time/CCT Total # of Minutes Spent Total Time Spent with Patient: Total time spent is greater than 50% in coordination of care (as documented) at patient's floor/unit and/or counseling patient: Coding Level of Care Code 38572 SUB INP/OBS CARE 3/50MIN Diagnoses Alcohol abuse F10.10 Electrolyte abnormality E87.8 Chronic systolic CHF (congestive heart failure) I50.22 Depression with anxiety F41.8 Hypertension I10 Acute alcohol intoxication delirium with moderate or severe use disorder F10.221
[2024-09-30] MEDS ORDERED: STAT IV/IM STA ×2 (13:32→17:50)
--- NOTE | 2024-09-30 13:39 | Critical Care Consultation ---
Date of Consultation September 30, 2024 Assessment & Plan (1) Acute alcohol intoxication: Reason Critically Ill: 69-year-old male with acute agitated delirium PLAN: Neuro: Acute agitated delirium - Phenobarbital load to 10 mg/kg - Ketamine IV x 1 for breakthrough during load Resp: Continuous end-tidal CO2 monitoring - Mild hypoxia requiring supplemental oxygen - Judicious use of fluids given reported history of CHF - Bilateral venous duplex given knee in immobilizer: I do believe this is unlikely there is no obvious swelling CV: History nonischemic cardiomyopathy - IV metoprolol if unable to take p.o. Fluids/Renal: Acute kidney injury: Improving -Serrano catheter Hypokalemia: Potassium supplementation ID: Monitor fever curve GI/Nutrition: Mild transaminitis -Continue to monitor - Acute hepatitis panel Heme: Anemia -Sending baseline anemia studies as they have not been sent before according to records anticipate this secondary to alcohol abuse DVT prophylaxis: Heparin 7500 SQ 3 times daily Endocrine: ICU hyperglycemia protocol Vascular access: Peripheral IVs Code Status: Full code Disposition: ICU while requiring IV phenobarbital (2) Acute alcohol intoxication delirium with moderate or severe use disorder: (3) Electrolyte abnormality: (4) Fracture of right tibial plateau: (5) Chronic systolic CHF (congestive heart failure): (6) S/P ICD (internal cardiac defibrillator) procedure: (7) Nonischemic cardiomyopathy: Supervising Physician Co-Signing Physician Notes I have personally spent 65 minutes of critical care time in the direct management of this patient. This is a life/limb threatening event. This includes time spent evaluating patient, direct bedside care, chart review, placing orders, interpretation of diagnostic studies, discussion with consultants, patient, and/or family members regarding treatment decisions, as well as other required patient management activities. This time is exclusive of all separately billable procedures, and teaching time and separate from and in addition to any other critical care service time. History of Present Illness Reason for Consultation: Acute agitated delirium Attending Physician: Raf Boyd MD, PhD History of Present Illness History is obtained from prior records secondary to acute encephalopathy. Patient presented with nonspecific complaints to the emergency department he was found to have acute alcohol intoxication and worsening kidney disease. He was admitted to the hospital and subsequently his mental status is gotten worse he w as transferred to the ICU for worsening agitated delirium requiring phenobarbital and subsequent end-tidal CO2 monitoring Allergies Allergy/AdvReac Type Severity Reaction Status Date / Time oxycodone [From Percodan] AdvReac Mild Dizziness Verified 09/29/24 17:44 Home Medications Medication Instructions Recorded Confirmed Type aspirin 81 mg tablet,delayed 81 mg PO DAILY 04/21/22 09/29/24 History release escitalopram oxalate 10 mg tablet 10 mg PO QAM #30 tabs 04/25/22 09/29/24 Rx furosemide 40 mg tablet 40 mg PO QAM #30 tabs 04/25/22 09/29/24 Rx magnesium oxide 400 mg (241.3 mg 400 mg PO QAM #30 tabs 04/25/22 09/29/24 Rx magnesium) tablet metoprolol succinate 50 mg 50 mg PO QAM #30 tabs 04/25/22 09/29/24 Rx tablet,extended release 24 hr sacubitril 49 mg-valsartan 51 mg 1 tab PO BID #60 tabs 04/25/22 09/29/24 Rx tablet (Entresto) gabapentin 100 mg capsule 100 mg PO HS 07/03/24 09/29/24 History albuterol sulfate 90 mcg/actuation 2 puff inhalation QID PRN 09/29/24 09/29/24 History aerosol inhaler Shortness Of Breath Or Wheezing coenzyme Q10 100 mg capsule (Co 100 mg PO DAILY 09/29/24 09/29/24 History Q-10) lisinopril 20 mg tablet 20 mg PO DAILY 09/29/24 09/29/24 History potassium chloride 20 mEq 20 meq PO DAILY 09/29/24 09/29/24 History tablet,extended release spironolactone 25 mg tablet 25 mg PO DAILY 09/29/24 09/29/24 History Patient History Medical History Acute on chronic systolic heart failure Depression with anxiety Hypertension Asthma Alcohol abuse Mitral regurgitation Surgical History History of mitral valve repair Hx of heart surgery History of back surgery History of ankle surgery Family History Brother Diabetes Mother Cancer Social History Smoking Status: Current every day smoker Tobacco Type: Cigarettes Cigarettes Per Day: 1; Do You Dip or Chew Tobacco: No; Hx Alcohol Use: Yes Alcohol type: hard liquor Hx Substance Use: Yes Last Used Substance: Unknown Last Used Substance Other:: last used at 4pm yesterday Substance Use Type Other:: "I just take 1 hit" "I'll be stoned all day long with one little hit" Preferred Language: Frisian Communication Ability: Impaired Communication Ability Comment: pt states he can read enough to get by but is not a very good reader Tv Technician Required: No Beliefs That Will Affect Care: None marital status: Legally Current Living Situation: Alone 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 Feels Safe at Home: Hesitant to Answer Assistive Devices: Crutches and Walker Physical Exam Physical Exam: General: Intermittently agitated intermittently able to follow simple commands Skin: Warm, dry, Head: Atraumatic Ears, nose, mouth and throat: airway patent Cardiovascular: Normal peripheral perfusion Respiratory: no respiratory distress Gastrointestinal: Non distended Musculoskeletal: No deformity, right lower extremity is in a hinged knee immobilizer which is allowing for movement no significant swelling or redness Results & Data Results & Data Vital Signs (Past 12 Hours) Vital Signs Temp Pulse Pulse Resp BP BP Pulse Ox 09/30/24 12:40 123 H 24 128/99 09/30/24 10:37 09/30/24 07:30 121 H 29 H 158/105 H 88 L 09/30/24 07:25 112 H 09/30/24 06:33 36.4 C L 115 H 18 159/113 H 97 09/30/24 04:31 90 09/30/24 04:24 36.5 C 109 H 18 150/101 H 76 L 09/30/24 02:10 36.5 C 107 H 18 160/108 H 93 09/30/24 02:04 108 H 19 160/103 H 93 O2 Del Method O2 Flow Rate 09/30/24 12:40 09/30/24 10:37 Oxymask 09/30/24 07:30 Oxymask 10 09/30/24 07:25 09/30/24 06:33 Oxymask 6 09/30/24 04:31 Nasal Cannula 6 09/30/24 04:24 Room Air 09/30/24 02:10 Room Air 09/30/24 02:04 Room Air Critical Care Results & Data Vital Signs (Past 12 Hours) Vital Signs Temp Pulse Pulse Resp BP BP Pulse Ox 09/30/24 12:40 123 H 24 128/99 09/30/24 10:37 09/30/24 07:30 121 H 29 H 158/105 H 88 L 09/30/24 07:25 112 H 09/30/24 06:33 36.4 C L 115 H 18 159/113 H 97 09/30/24 04:31 90 09/30/24 04:24 36.5 C 109 H 18 150/101 H 76 L 09/30/24 02:10 36.5 C 107 H 18 160/108 H 93 09/30/24 02:04 108 H 19 160/103 H 93 O2 Del Method O2 Flow Rate 09/30/24 12:40 09/30/24 10:37 Oxymask 10 09/30/24 07:30 Oxymask 10 09/30/24 07:25 09/30/24 06:33 Oxymask 6 09/30/24 04:31 Nasal Cannula 6 09/30/24 04:24 Room Air 09/30/24 02:10 Room Air 09/30/24 02:04 Room Air Lab & Micro Results (Past 24 Hours) RBC 3.81 M/uL (4.70-6.10) L 09/30/24 WBC 9.38 K/ul (4.8-10.8) 09/30/24 Hgb 13.7 g/dl (14.0-18.0) L 09/30/24 Hct 39.2 % (42.0-52.0) L 09/30/24 MCV 102.9 fL (80.0-100.0) H 09/30/24 MCH 36.0 pg (25.0-34.0) H 09/30/24 MCHC 34.9 g/dL (32.0-36.0) 09/30/24 RDW Standard Deviation 52.0 fL (36.4-46.3) H 09/30/24 RDW Coefficient of Variation 13.6 % (11.5-14.5) 09/30/24 Plt Count 231 K/uL (130-400) 09/30/24 MPV 9.7 fL (9.4-12.4) 09/30/24 Neutrophils (%) (Auto) 56.4 % 09/29/24 Lymphocytes (%) (Auto) 29.9 % 09/29/24 Monocytes # (Auto) 0.65 K/uL (0.11-0.59) H 09/29/24 Eosinophils # (Auto) 0.06 K/uL (0.00-0.50) 09/29/24 Immature Granulocyte % (Auto) 0.4 % 09/29/24 Neutrophils # (Auto) 3.14 K/uL (1.40-6.50) 09/29/24 Lymphocytes # (Auto) 1.66 K/uL (1.20-3.40) 09/29/24 Monocytes # (Auto) 0.65 K/uL (0.11-0.59) H 09/29/24 Eosinophils # (Auto) 0.06 K/uL (0.00-0.50) 09/29/24 Basophils # (Auto) 0.03 K/uL (0.00-0.20) 09/29/24 Immature Granulocyte # (Auto) 0.02 K/uL (0.01-0.20) 5 Na 139 mmol/L (136-145) 09/30/24 K 3.2 mmol/L (3.5-5.1) L 09/30/24 Cl 87 mmol/L (98-107) L 09/30/24 CO2 45 mmol/L (21-32) H* 09/30/24 Anion Gap 7 (3-11) 09/30/24 BUN 18 mg/dl (6-23) 09/30/24 Creatinine 1.90 mg/dl (0.6-1.4) H 09/30/24 BUN/Creatinine Ratio 9.5 (10-20) L 09/30/24 Glu 125 mg/dl (70-99(Fasting)) H 09/30/24 Ca 8.7 mg/dl (8.6-10.3) 09/30/24 Phosphorus Level 2.0 mg/dl (2.5-4.9) L 09/29/24 Total Bilirubin 1.4 mg/dl (0.2-1.0) H 09/30/24 Direct Bilirubin 0.5 mg/dl (0-0.2) H 09/30/24 AST 45 U/L (13-39) H 09/30/24 ALT 22 U/L (7-52) 09/30/24 Alkaline Phosphatase 164 U/L (34-104) H 09/30/24 TP 6.6 gm/dl (6.0-8.3) 09/30/24 Albumin 3.1 gm/dl (3.4-5.0) L 09/30/24 Globulin 3.8 gm/dl (2.5-4.0) 09/29/24 Albumin/Globulin Ratio 0.8 (0.9-2) L 09/29/24 Mg 2.0 mg/dl (1.7-2.4) 09/30/24 07:03 Calcium Level 8.7 mg/dl (8.6-10.3) 09/30/24 07:03 Prothromb Time International Ratio 1.1 (0.9-1.1) 09/29/24 19:0 3 Diagnostic Findings (Past 24 Hours) Chest X-Ray 09/29/24 14:59 EXAM: X-ray chest one-view portable CLINICAL HISTORY: Chest pain PRIORS: 07/21/2022 TECHNIQUE: Frontal view chest FINDINGS: The chest is well-expanded. Left-sided cardiac pacing device noted with leads present. Median sternotomy wires and a prosthetic valve present. No airspace consolidation, effusion or congestive changes. Heart size is normal. No pneumothorax. Trachea is patent. Osseous structures demonstrate no acute abnormality. No radiopaque foreign body. IMPRESSION: No plain film evidence of an acute cardiopulmonary process. Electronically signed by Sabrina Joy 09-29-2024 3:39 PM Abdomen/Pelvis CT 09/29/24 16:44 EXAM: CT abd pelvis wo con CLINICAL HISTORY: Abdominal pain, distension. TECHNIQUE: Non-contrast CT of the abdomen and pelvis was performed, with the following protocol: axial images, and reconstructed coronal and sagittal images. One of the following dose reduction techniques was utilized for this exam: Automated exposure control, adjustment of the mA and/or kV according to patient size, and use of iterative reconstruction. COMPARISON: No prior studies available for comparison FINDINGS: Motion artifacts are present. Abdomen: Liver: Normal in size and shape. Decreased parenchymal attenuation suggestive of steatosis. Multiple tiny scattered calcifications, likely granulomas. Irregular hypodense areas are seen in the hepatic segment IV. Gallbladder and Biliary System: The gallbladder is normal in size and shape. No wall thickening, pericholecystic fluid, or gallstones were identified. Pancreas: Pancreatic head, body, and tail are visualized and appear normal in size and density. No pancreatic masses or calcifications were noted. Spleen: Normal in size, shape, and density. No splenic lesions or masses were identified. Multiple tiny calcifications are seen, likely granulomas. Appendix: The appendix is normal in size without periappendiceal fat stranding, and without an appendicolith. No evidence of appendiceal abscess or perforation. Kidneys and Adrenal Glands: Both kidneys are normal in size, shape, and position. Cortical thickness is within normal limits. No renal calculi or hydronephrosis. Thickened and nodular left adrenal gland. Mild bilateral perinephric fat stranding. Abdominal Aorta and Vessels: No evidence of an aneurysm. Mild atherosclerosis. Pelvis: Urinary Bladder: Normal in contour and wall thickness. No intraluminal lesions. Prostate: Normal in size and contour. No masses or abnormal thickening. Seminal Vesicles: Normal appearance without abnormal enlargement or mass. Peritoneal and Retroperitoneal Structures: No free fluid or abnormal fluid collections were identified within the abdomen or pelvis. No lymphadenopathy was noted. Bowel: Hiatal hernia. Uncomplicated colonic diverticulosis. The visualized bowel loops are normal in caliber and appearance. No evidence of bowel obstruction or wall thickening. Bones and Soft Tissues: Pelvic bones and soft tissues are unremarkable. No fractures or abnormal masses were identified. Small fat-containing left inguinal hernia. Degenerative changes in the spine. IMPRESSION: No bowel obstruction. Hepatic steatosis, with areas of irregular hypodensities in segment IV, likely part of steatosis. Advised ultrasound correlation. Uncomplicated colonic diverticulosis, Hiatal hernia. Electronically signed by Claudio Pavon 09-29-2024 7:28 PM Liver Ultrasound 09/29/24 21:14 EXAM: US liver CLINICAL HISTORY: HX: PREV CT 09/29/24. ABN LFTs. H/O HEAVY ALCOHOL USE TECHNIQUE: Ultrasound examination of the RUQ was performed using a [high-frequency transducer]. Scanning was performed with the patient in the supine position. COMPARISON: Prior CT 09/29/2024 FINDINGS: Liver: Liver size: [Measurements in length ( 16.8 cm) Liver appears heterogenous with echogenic echotexture. With multiple scattered echogenic foci, the largest one = 2mm ( old granulomatosis infection) No evidence of focal lesions, cysts, or masses. Hepatic vasculature appears normal. Gallbladder: Gallbladder size: .The gallbladder is visualized and appears normal in size and shape, harboring layering bile with fluid fluid level, and biliary sludge with mural thickness = 1.3 mm No gallstones or pericholecystic fluid noted. No evidence of gallbladder wall edema or signs of acute cholecystitis. Negative Logan sign. Biliary Tree: Common bile duct diameter: [Measurement = 3.6 mm ]. The common bile duct is within normal limits in caliber and not dilated. No evidence of choledocholithiasis or biliary obstruction. Right Kidney: Right kidney size: .The right kidney appears normal in size with preserved corticomedullary differentiation. No evidence of hydronephrosis, renal cysts, or masses. IMPRESSION: 1. No interval changes 2. Mild hepatomegaly with hepatic steatosis ( unchanged ). 3. Multiple scattered hepatic calcified foci; old granulomatosis infection. ( unchanged) 4. Gall bladder biliary sludge ( not seen in CT ). RECOMMENDATIONS: Clinical correlation with symptoms and further evaluation as indicated. Electronically signed by Claudio Pavon 09-30-2024 07:47 AM I & O Totals 24 Hours 09/29/24 09/30/24 10/01/24 06:59 06:59 06:59 Intake Total 2255 / 2255 1054.1285 / 1054.1285 Output Total 501 / 501 Balance 1754 / 1754 1054.1285 / 1054.1285 Cumulative 09/29/24 14:46 thru 09/30/24 13:15 Intake Total 3309.1285 Output Total 501 Balance 2808.1285 RT Ventilator Mngmt (Last Documented) Ventilator Ordered Settings Respiratory Rate 24 09/30/24 12:40 Ventilator - PT Measurements Respiratory Rate 24 Coding Level of Care Code 32589 CRITICAL CARE 1ST 30-74M Diagnoses Acute alcoholic intoxication with delirium F10.921 Complication of substance-induced condition: with delirium Acute alcohol intoxication delirium with moderate or severe use disorder F10.221 Electrolyte abnormality E87.8 Closed fracture of right tibial plateau, sequela S82.141S Encounter type: sequela Fracture type: closed Chronic systolic CHF (congestive heart failure) I50.22 S/P ICD (internal cardiac defibrillator) procedure Z95.810 Nonischemic cardiomyopathy I42.8 (1) Acute alcohol intoxication Complication of substance-induced condition: with delirium Qualified Code(s): F10.921 - Alcohol use, unspecified with intoxication delirium (4) Fracture of right tibial plateau Encounter type: sequela Fracture type: closed Qualified Code(s): S82.141S - Displaced bicondylar fracture of right tibia, sequela
[2024-09-30] MEDS: KETAMINE HCL IV ONE ×2 (13:45→18:03)
[2024-09-30] MEDS: SODIUM CHLORIDE 0.9% IV ONE ×2 (13:45→18:03)
[2024-09-30 15:08] LABS: Hep B Surface Ag with confirm Negative (Negative)
[2024-09-30 15:13] LABS: Hep C Ab Rflx HepCQuant RNA Negative (Negative)
[2024-09-30] MEDS ORDERED: KETAMINE HCL INJ 50 MG/ML 10 ML VIAL IV ONE (15:19)
--- NOTE | 2024-09-30 15:59 | XRay Report ---
XR chest 1V portable CLINICAL HISTORY: persistent acute hypoxic respiratory failure COMPARISON STUDY: 09/29/2024 FINDINGS: Stable cardiac valve repair and pacemaker. Stable cardiomegaly with increased pulmonary vas cular congestion. There is increased patchy opacity throughout the right lung and at the left lung ba se. No pleural effusion or pneumothorax. IMPRESSION: 1. CHF. 2. Increased pulmonary opacities right greater than left. This could represent pneumonia or asymmetri c pulmonary edema. ACT 112: Negative or not required by law. Electronically signed by: Mario Bingham M.D. 09/30/2024 3:58 PM
[2024-09-30] MEDS: RAPID SEQUENCE INDUCTION BAG ONE (17:48)
[2024-09-30] MEDS: [UNRECOGNIZED DRUG - REMARK] IV SCH (18:31)
[2024-09-30] MEDS: HEPARIN SOD 5,000 UNIT/0.5 ML VIAL SQ SCH (20:49)
--- NOTE | 2024-09-30 22:00 | Ultrasound Report ---
Exam(s): US VENOUS BILATERAL LOWER EXTREMITIES EXAM: US Duplex Bilateral Lower Extremities Veins CLINICAL HISTORY: Reason for exam: r/o DVT. TECHNIQUE: Real-time duplex ultrasound scan of the bilateral lower extremity veins integrating B-mode two-dimensional vascular structure, Doppler spectral analysis, color flow Doppler imaging and compression. COMPARISON: No relevant prior studies available. FINDINGS: Right deep veins: Small amount of old calcified thrombus in the mid right femoral vein, nonocclusive. The remaining right lower extremity venous structures are patent and compressible. Right superficial veins: Unremarkable. No thrombus in the visualized right great saphenous vein. Left deep veins: Unremarkable. No DVT in the left common femoral, femoral, proximal deep femoral or popliteal veins. The veins demonstrate normal color flow, are normally compressible, with normal phasic flow and/or augmentation response. Left superficial veins: Unremarkable. No thrombus in the visualized left great saphenous vein. Soft tissues: No acute findings. No popliteal cyst. Lymph nodes: Slightly enlarged lymph node in the left groin measuring 1 cm short axis diameter. IMPRESSION: Small amount of old calcified thrombus in the mid right femoral vein, nonocclusive. No acute DVT seen in either lower extremity. Electronically signed by: Ponce Salazar MD 09/30/24 21:59 PM
[2024-10-01 04:52] LABS: Hematocrit (blood only) 42.7 % (42.0-52.0); Hemoglobin 14.6 g/dl (14.0-18.0); Immature Granulocytes # (auto) 0.07 K/uL (0.01-0.20); Immature Granulocytes % (auto) 0.6 %; Mean Corpuscular Hemoglobin 36.0 pg (25.0-34.0); Mean Corpuscular Volume 105.4 fL (80.0-100.0); Platelet Count 203 K/uL (130-400); RDW Standard Deviation 54.4 fL (36.4-46.3); Red Blood Count 4.05 M/uL (4.70-6.10); Reticulocytes # 0.090 10^6/uL (0.020-0.100); White Blood Count 11.00 K/ul (4.8-10.8)
[2024-10-01 05:17] LABS: iSTAT Art Bld Gas Base Excess 14.0 meg/L (-9-1.8); iSTAT Art Bld Gas pCO2 Correct 52 mmHg (35-46); iSTAT Art Bld Gas pH Corrected 7.473 (7.35-7.45); iSTAT Arterial Blood Gas pO2 C 42
[2024-10-01 06:31] LABS: Alanine Aminotransferase 18.0 U/L (7-52); Albumin Globulin Ratio 0.8 (0.9-2); Alkaline Phosphatase 153.0 U/L (34-104); Anion Gap 13.0 (3-11); Bilirubin,Total 1.6 mg/dl (0.2-1.0); Blood Urea Nitrogen 21.0 mg/dl (6-23); Calcium 8.6 mg/dl (8.6-10.3); Carbon Dioxide 35.0 mmol/L (21-32); Chloride 91.0 mmol/L (98-107); Creatinine Clr Calc Pharmacy 40.1 ml/min; Globulin 3.3 gm/dl (2.5-4.0); Glucose 99.0 mg/dl (70-99(Fasting)); Iron 87.0 mcg/dl (35-175); Magnesium 1.9 mg/dl (1.7-2.4); Potassium 4.1 mmol/L (3.5-5.1); Sodium 139.0 mmol/L (136-145); Total Protein 6.1 gm/dl (6.0-8.3); Transferrin 150.0 mg/dl (200-360)
[2024-10-01 07:06] LABS: Ferritin 537.4 ng/ml (8-388)
[2024-10-01 08:55] LABS: iSTAT Art Bld Gas Base Excess 12.0 meg/L (-9-1.8); iSTAT Art Bld Gas pCO2 Correct 41 mmHg (35-46); iSTAT Art Bld Gas pH Corrected 7.534 (7.35-7.45); iSTAT Arterial Blood Gas pO2 C 58
--- NOTE | 2024-10-01 09:43 | Critical Care Progress Note ---
Date of Service October 01, 2024 Assessment & Plan (1) Acute alcohol intoxication: Plan: Reason Critically Ill: 69-year-old male with acute agitated delirium PLAN: Neuro: Acute agitated delirium - Ketamine infusion for additional control of excited delirium - Received additional dose of 195 mg IV phenobarbital to move load towards 15 mg/kg Check ammonia level Resp: Continuous end-tidal CO2 monitoring - Mild hypoxia requiring supplemental oxygen -Reviewed bilateral venous duplex findings: No evidence of acute DVT CV: History nonischemic cardiomyopathy - IV metoprolol 5 mg every 6 hours Fluids/Renal: Acute kidney injury: Improving -Serrano catheter Hypokalemia: Resolved Mild lactic acid acidosis - 500 mg thiamine IV 3 times today then resume 100 mg daily Mixed metabolic acidosis: Lactic acid acidosis with metabolic alkalosis and very mild secondary respiratory alkalosis - 500 mg acetazolamide IV to assist with gentle diuresis given history of CHF ID: Monitor fever curve GI/Nutrition: Mild transaminitis -Continue to monitor - Acute hepatitis panel: Hepatitis B and C: negative Heme: Anemia - Appropriate reticulocytosis, appears to be anemia related to alcohol consumption, folate B12 within acceptable range DVT prophylaxis: Heparin 7500 SQ 3 times daily - Presumptive history of prior DVT given calcification of thrombus in mid right femoral vein: Review of chart demonstrates orthopedic injury history to that affected leg Endocrine: ICU hyperglycemia protocol Vascular access: Peripheral IVs Code Status: Full code Disposition: ICU while requiring IV phenobarbital and ketamine (2) Acute alcohol intoxication delirium with moderate or severe use disorder: (3) Electrolyte abnormality: (4) Fracture of right tibial plateau: (5) Chronic systolic CHF (congestive heart failure): (6) S/P ICD (internal cardiac defibrillator) procedure: (7) Nonischemic cardiomyopathy: Admission and Anticipated Discharge Date Admission Date: September 29, 2024 Supervising Physician Co-Signing Physician Notes I have personally spent 45 minutes of critical care time in the direct management of this patient. This is a life/limb threatening event. This includes time spent evaluating patient, direct bedside care, chart review, placing orders, interpretation of diagnostic studies, discussion with consultants, patient, and/or family members regarding treatment decisions, as well as other required patient management activities. This time is exclusive of all separately billable procedures, and teaching time and separate from and in addition to any other critical care service time. Subjective Overnight patient required additional as needed doses of Haldol and phenobarbital given acute agitated delirium and inability to be redirected Physical Exam Physical Exam: General: Intermittently agitated intermittently able to follow simple commands Skin: Warm, dry, Head: Atraumatic Ears, nose, mouth and throat: airway patent Cardiovascular: Normal peripheral perfusion Respiratory: no respiratory distress Gastrointestinal: Non distended Musculoskeletal: No deformity Results & Data Results & Data Vital Signs (Past 12 Hours) Vital Signs Temp Pulse Pulse Resp BP BP Pulse Ox 10/01/24 09:00 117 H 22 118/86 95 10/01/24 08:49 10/01/24 08:30 118 H 20 94 10/01/24 08:03 117 H 21 95 10/01/24 08:00 128/94 10/01/24 08:00 128/94 10/01/24 08:00 128/94 10/01/24 08:00 117 H 24 128/94 95 10/01/24 07:57 117 H 20 94 10/01/24 07:48 119 H 22 85 L 10/01/24 07:36 116 H 23 93 10/01/24 07:30 128/94 10/01/24 07:12 115 H 21 95 10/01/24 07:00 142/101 H 10/01/24 07:00 142/101 H 10/01/24 07:00 142/101 H 10/01/24 07:00 115 H 21 97 10/01/24 07:00 115 H 21 142/101 H 97 10/01/24 06:48 112 H 19 94 10/01/24 06:33 114 H 19 95 10/01/24 06:30 123/87 10/01/24 06:30 123/87 10/01/24 06:15 112 H 20 93 10/01/24 06:00 111 H 20 92 10/01/24 06:00 111/84 10/01/24 06:00 111/84 10/01/24 06:00 109 H 20 111/84 93 10/01/24 05:54 112 H 21 92 10/01/24 05:33 111 H 22 91 10/01/24 05:30 121/88 10/01/24 05:30 121/88 10/01/24 05:30 121/88 10/01/24 05:30 111 H 22 121/88 93 10/01/24 05:15 112 H 24 95 10/01/24 05:00 129/96 10/01/24 05:00 129/96 10/01/24 05:00 114 H 20 93 10/01/24 05:00 115 H 21 129/96 93 10/01/24 04:54 117 H 20 92 10/01/24 04:30 112 H 20 135/100 96 10/01/24 04:00 36.9 C 113 H 20 133/95 97 10/01/24 03:30 107 H 19 124/94 97 10/01/24 03:00 106 H 18 130/91 96 10/01/24 02:30 107 H 20 127/94 99 10/01/24 02:20 107 H 20 100 10/01/24 02:00 106 H 18 117/85 98 10/01/24 01:30 105 H 18 120/84 100 10/01/24 01:00 106 H 20 129/96 100 10/01/24 00:30 105 H 19 125/90 100 10/01/24 00:00 36.7 C 107 H 19 124/94 100 09/30/24 23:30 104 H 20 86/67 L 98 09/30/24 23:09 104 H 18 96 09/30/24 23:00 104 H 22 93/63 L 96 09/30/24 22:30 106 H 21 102/74 98 09/30/24 22:00 110 H 24 122/96 93 O2 Del Method O2 Flow Rate FiO2 10/01/24 09:00 High Flow Nasal Cannula 40 0.45 10/01/24 08:49 High Flow Nasal Cannula 40 0.45 10/01/24 08:30 High Flow Nasal Cannula 40 45 10/01/24 08:03 10/01/24 08:00 10/01/24 08:00 10/01/24 08:00 10/01/24 08:00 High Flow Nasal Cannula 40 0.45 10/01/24 07:57 10/01/24 07:48 10/01/24 07:36 10/01/24 07:30 10/01/24 07:12 10/01/24 07:00 10/01/24 07:00 10/01/24 07:00 10/01/24 07:00 10/01/24 07:00 High Flow Nasal Cannula 40 0.45 10/01/24 06:48 10/01/24 06:33 10/01/24 06:30 10/01/24 06:30 10/01/24 06:15 10/01/24 06:00 10/01/24 06:00 10/01/24 06:00 10/01/24 06:00 High Flow Nasal Cannula 40 50 10/01/24 05:54 10/01/24 05:33 10/01/24 05:30 10/01/24 05:30 10/01/24 05:30 10/01/24 05:30 High Flow Nasal Cannula 40 50 10/01/24 05:15 10/01/24 05:00 10/01/24 05:00 10/01/24 05:00 10/01/24 05:00 High Flow Nasal Cannula 40 50 10/01/24 04:54 10/01/24 04:30 High Flow Nasal Cannula 40 50 10/01/24 04:00 High Flow Nasal Cannula 40 50 10/01/24 03:30 High Flow Nasal Cannula 40 50 10/01/24 03:00 High Flow Nasal Cannula 40 50 10/01/24 02:30 High Flow Nasal Cannula 40 50 10/01/24 02:20 High Flow Nasal Cannula 50 65 10/01/24 02:00 High Flow Nasal Cannula 50 65 10/01/24 01:30 High Flow Nasal Cannula 50 65 10/01/24 01:00 High Flow Nasal Cannula 50 65 10/01/24 00:30 High Flow Nasal Cannula 50 65 10/01/24 00:00 High Flow Nasal Cannula 50 65 09/30/24 23:30 High Flow Nasal Cannula 50 70 09/30/24 23:09 High Flow Nasal Cannula 50 70 09/30/24 23:00 High Flow Nasal Cannula 50 70 09/30/24 22:30 High Flow Nasal Cannula 50 85 09/30/24 22:00 High Flow Nasal Cannula 50 85 Critical Care Results & Data Vital Signs (Past 12 Hours) Vital Signs Temp Pulse Pulse Resp BP BP Pulse Ox 10/01/24 12:00 122 H 24 145/87 H 96 10/01/24 11:54 121 H 119/88 10/01/24 11:48 122 H 24 119/88 10/01/24 11:22 122 H 20 94 10/01/24 11:00 124 H 24 107/71 96 10/01/24 10:00 118 H 21 111/80 96 10/01/24 09:00 117 H 22 118/86 95 10/01/24 08:49 10/01/24 08:30 118 H 20 94 10/01/24 08:03 117 H 21 95 10/01/24 08:00 128/94 10/01/24 08:00 128/94 10/01/24 08:00 128/94 10/01/24 08:00 117 H 24 128/94 95 10/01/24 07:57 117 H 20 94 10/01/24 07:48 119 H 22 85 L 10/01/24 07:36 116 H 23 93 10/01/24 07:30 128/94 10/01/24 07:12 115 H 21 95 10/01/24 07:00 142/101 H 10/01/24 07:00 142/101 H 10/01/24 07:00 142/101 H 10/01/24 07:00 115 H 21 97 10/01/24 07:00 115 H 21 142/101 H 97 10/01/24 06:48 112 H 19 94 10/01/24 06:33 114 H 19 95 10/01/24 06:30 123/87 10/01/24 06:30 123/87 10/01/24 06:15 112 H 20 93 10/01/24 06:00 111 H 20 92 10/01/24 06:00 111/84 10/01/24 06:00 111/84 10/01/24 06:00 109 H 20 111/84 93 10/01/24 05:54 112 H 21 92 10/01/24 05:33 111 H 22 91 10/01/24 05:30 121/88 10/01/24 05:30 121/88 10/01/24 05:30 121/88 10/01/24 05:30 111 H 22 121/88 93 10/01/24 05:15 112 H 24 95 10/01/24 05:00 129/96 10/01/24 05:00 129/96 10/01/24 05:00 114 H 20 93 10/01/24 05:00 115 H 21 129/96 93 10/01/24 04:54 117 H 20 92 10/01/24 04:30 112 H 20 135/100 96 10/01/24 04:00 36.9 C 113 H 20 133/95 97 10/01/24 03:30 107 H 19 124/94 97 10/01/24 03:00 106 H 18 130/91 96 10/01/24 02:30 107 H 20 127/94 99 10/01/24 02:20 107 H 20 100 10/01/24 02:00 106 H 18 117/85 98 10/01/24 01:30 105 H 18 120/84 100 10/01/24 01:00 106 H 20 129/96 100 10/01/24 00:30 105 H 19 125/90 100 O2 Del Method O2 Flow Rate FiO2 10/01/24 12:00 High Flow Nasal Cannula 40 0.45 10/01/24 11:54 10/01/24 11:48 10/01/24 11:22 High Flow Nasal Cannula 40 45 10/01/24 11:00 High Flow Nasal Cannula 40 0.45 10/01/24 10:00 High Flow Nasal Cannula 40 0.45 10/01/24 09:00 High Flow Nasal Cannula 40 0.45 10/01/24 08:49 High Flow Nasal Cannula 40 0.45 10/01/24 08:30 High Flow Nasal Cannula 40 45 10/01/24 08:03 10/01/24 08:00 10/01/24 08:00 10/01/24 08:00 10/01/24 08:00 High Flow Nasal Cannula 40 0.45 10/01/24 07:57 10/01/24 07:48 10/01/24 07:36 10/01/24 07:30 10/01/24 07:12 10/01/24 07:00 10/01/24 07:00 10/01/24 07:00 10/01/24 07:00 10/01/24 07:00 High Flow Nasal Cannula 40 0.45 10/01/24 06:48 10/01/24 06:33 10/01/24 06:30 10/01/24 06:30 10/01/24 06:15 10/01/24 06:00 10/01/24 06:00 10/01/24 06:00 10/01/24 06:00 High Flow Nasal Cannula 40 50 10/01/24 05:54 10/01/24 05:33 10/01/24 05:30 10/01/24 05:30 10/01/24 05:30 10/01/24 05:30 High Flow Nasal Cannula 40 50 10/01/24 05:15 10/01/24 05:00 10/01/24 05:00 10/01/24 05:00 10/01/24 05:00 High Flow Nasal Cannula 40 50 10/01/24 04:54 10/01/24 04:30 High Flow Nasal Cannula 40 50 10/01/24 04:00 High Flow Nasal Cannula 40 50 10/01/24 03:30 High Flow Nasal Cannula 40 50 10/01/24 03:00 High Flow Nasal Cannula 40 50 10/01/24 02:30 High Flow Nasal Cannula 40 50 10/01/24 02:20 High Flow Nasal Cannula 50 65 10/01/24 02:00 High Flow Nasal Cannula 50 65 10/01/24 01:30 High Flow Nasal Cannula 50 65 10/01/24 01:00 High Flow Nasal Cannula 50 65 10/01/24 00:30 High Flow Nasal Cannula 50 65 Lab & Micro Results (Past 24 Hours) RBC 4.05 M/uL (4.70-6.10) L 10/01/24 WBC 11.00 K/ul (4.8-10.8) H 10/01/24 Hgb 14.6 g/dl (14.0-18.0) 10/01/24 Hct 42.7 % (42.0-52.0) 10/01/24 MCV 105.4 fL (80.0-100.0) H 10/01/24 MCH 36.0 pg (25.0-34.0) H 10/01/24 MCHC 34.2 g/dL (32.0-36.0) 10/01/24 RDW Standard Deviation 54.4 fL (36.4-46.3) H 10/01/24 RDW Coefficient of Variation 13.9 % (11.5-14.5) 10/01/24 Plt Count 203 K/uL (130-400) 10/01/24 MPV 10.2 fL (9.4-12.4) 10/01/24 Nucleated Red Blood Cells % (auto) 0.4 % 10/01 Nucleated RBC Absolute Count (auto) 0.04 K/uL (0.00-0.12) 0 10/01/24 Neutrophils (%) (Auto) 82.7 % 10/01/24 Lymphocytes (%) (Auto) 12.0 % 10/01/24 Monocytes # (Auto) 0.45 K/uL (0.11-0.59) 10/01/24 Eosinophils # (Auto) 0.03 K/uL (0.00-0.50) 10/01/24 Immature Granulocyte % (Auto) 0.6 % 10/01/24 Neutrophils # (Auto) 9.10 K/uL (1.40-6.50) H 10/01/24 Lymphocytes # (Auto) 1.32 K/uL (1.20-3.40) 10/01/24 Monocytes # (Auto) 0.45 K/uL (0.11-0.59) 10/01/24 Eosinophils # (Auto) 0.03 K/uL (0.00-0.50) 10/01/24 Basophils # (Auto) 0.03 K/uL (0.00-0.20) 10/01/24 Immature Granulocyte # (Auto) 0.07 K/uL (0.01-0.20) 5 Na 139 mmol/L (136-145) 10/01/24 K 4.1 mmol/L (3.5-5.1) 10/01/24 Cl 91 mmol/L (98-107) L 10/01/24 CO2 35 mmol/L (21-32) H 10/01/24 Anion Gap 13 (3-11) H 10/01/24 BUN 21 mg/dl (6-23) 10/01/24 Creatinine 1.88 mg/dl (0.6-1.4) H 10/01/24 BUN/Creatinine Ratio 11.2 (10-20) 10/01/24 Glu 99 mg/dl (70-99(Fasting)) 10/01/24 Ca 8.6 mg/dl (8.6-10.3) 10/01/24 Phosphorus Level 3.5 mg/dl (2.5-4.9) 10/01/24 Total Bilirubin 1.6 mg/dl (0.2-1.0) H 10/01/24 AST 41 U/L (13-39) H 10/01/24 ALT 18 U/L (7-52) 10/01/24 Alkaline Phosphatase 153 U/L (34-104) H 10/01/24 TP 6.1 gm/dl (6.0-8.3) 10/01/24 Albumin 2.8 gm/dl (3.4-5.0) L 10/01/24 Globulin 3.3 gm/dl (2.5-4.0) 10/01/24 Albumin/Globulin Ratio 0.8 (0.9-2) L 10/01/24 Mg 1.9 mg/dl (1.7-2.4) 10/01/24 04:41 Calcium Level 8.6 mg/dl (8.6-10.3) 10/01/24 04:41 Darren Test Pass 10/01/24 08:43 Diagnostic Findings (Past 24 Hours) Venous Doppler Study 09/30/24 13:22 Exam(s): US VENOUS BILATERAL LOWER EXTREMITIES EXAM: US Duplex Bilateral Lower Extremities Veins CLINICAL HISTORY: Reason for exam: r/o DVT. TECHNIQUE: Real-time duplex ultrasound scan of the bilateral lower extremity veins integrating B-mode two-dimensional vascular structure, Doppler spectral analysis, color flow Doppler imaging and compression. COMPARISON: No relevant prior studies available. FINDINGS: Right deep veins: Small amount of old calcified thrombus in the mid right femoral vein, nonocclusive. The remaining right lower extremity venous structures are patent and compressible. Right superficial veins: Unremarkable. No thrombus in the visualized right great saphenous vein. Left deep veins: Unremarkable. No DVT in the left common femoral, femoral, proximal deep femoral or popliteal veins. The veins demonstrate normal color flow, are normally compressible, with normal phasic flow and/or augmentation response. Left superficial veins: Unremarkable. No thrombus in the visualized left great saphenous vein. Soft tissues: No acute findings. No popliteal cyst. Lymph nodes: Slightly enlarged lymph node in the left groin measuring 1 cm short axis diameter. IMPRESSION: Small amount of old calcified thrombus in the mid right femoral vein, nonocclusive. No acute DVT seen in either lower extremity. Electronically signed by: Ponce Salazar MD 09/30/24 21:59 PM Chest X-Ray 09/30/24 14:33 XR chest 1V portable CLINICAL HISTORY: persistent acute hypoxic respiratory failure COMPARISON STUDY: 09/29/2024 FINDINGS: Stable cardiac valve repair and pacemaker. Stable cardiomegaly with increased pulmonary vascular congestion. There is increased patchy opacity throughout the right lung and at the left lung base. No pleural effusion or pneumothorax. IMPRESSION: 1. CHF. 2. Increased pulmonary opacities right greater than left. This could represent pneumonia or asymmetric pulmonary edema. ACT 112: Negative or not required by law. Electronically signed by: Mario Bingham M.D. 09/30/2024 3:58 PM I & O Totals 24 Hours 09/30/24 10/01/24 10/02/24 06:59 06:59 06:59 Intake Total 2255 / 2255 1602.8015 / 1822.4485 274.647 / 274.647 Output Total 501 / 501 635 / 635 Balance 1754 / 3815 237.6523 / 1187.4485 274.647 / 274.647 Cumulative 09/29/24 14:46 thru 10/01/24 11:10 Intake Total 4132.4485 Output Total 1136 Balance 2996.4485 RT Ventilator Mngmt (Last Documented) Ventilator Ordered Settings Respiratory Rate 24 10/01/24 12:00 Fraction of Inspired Oxygen 0.45 10/01/24 12:00 Ventilator - PT Measurements Respiratory Rate 24 End-Tidal CO2 21 Coding Level of Care Code 40601 CRITICAL CARE 1ST 30-74M Diagnoses Acute alcoholic intoxication with delirium F10.921 Complication of substance-induced condition: with delirium Acute alcohol intoxication delirium with moderate or severe use disorder F10.221 Electrolyte abnormality E87.8 Closed fracture of right tibial plateau, sequela S82.141S Encounter type: sequela Fracture type: closed Chronic systolic CHF (congestive heart failure) I50.22 S/P ICD (internal cardiac defibrillator) procedure Z95.810 Nonischemic cardiomyopathy I42.8 (1) Acute alcohol intoxication Complication of substance-induced condition: with delirium Qualified Code(s): F10.921 - Alcohol use, unspecified with intoxication delirium (4) Fracture of right tibial plateau Encounter type: sequela Fracture type: closed Qualified Code(s): S82.141S - Displaced bicondylar fracture of right tibia, sequela
[2024-10-01] MEDS: acetaZOLAMIDE 500 MG in SYRINGE 0 ML IV STA (10:50)
[2024-10-01] MEDS: THIAMINE HCL 500 MG in SODIUM CHLORIDE 0.9% 50 ML IV SCH (10:51)
[2024-10-01 11:16] LABS: Chlamydia pneumoniae PCR Not Detected (NotDetected); Coronavirus 229E PCR Not Detected (NotDetected); Coronavirus CoV-2 (COVID19)PCR Not Detected (NotDetected); Coronavirus HKU1 PCR Not Detected (NotDetected); Coronavirus NL63 PCR Not Detected (NotDetected); Coronavirus OC43PCR Not Detected (NotDetected); Human Metapneumovirus PCR Not Detected (NotDetected); Parainfluenza Virus 1 PCR Not Detected (NotDetected); Parainfluenza Virus 2 PCR Not Detected (NotDetected); Parainfluenza Virus 3 PCR Not Detected (NotDetected); Parainfluenza Virus 4 PCR Not Detected (NotDetected); Respiratory Syncytial VirusPCR Not Detected (NotDetected); Rhinovirus/Enterovirus PCR Not Detected (NotDetected)
[2024-10-01] MEDS: METOPROLOL TARTRATE 1 MG/ML VIAL IV SCH (11:54)
[2024-10-01] MEDS: KETAMINE HCL 10MG/ML SYR IV STA (12:43)
[2024-10-01] MEDS ORDERED: STAT IV Infusion **Titration per Protocol STA (15:45)
[2024-10-01] MEDS: dexMEDEtomidine 200 MCG/50 ML BAG IV SCH (15:57)
--- NOTE | 2024-10-01 19:22 | Hospitalist Progress Note ---
Date of Service October 01, 2024 Assessment & Plan (1) Alcohol abuse: (2) Electrolyte abnormality: (3) Chronic systolic CHF (congestive heart failure): (4) Depression with anxiety: (5) Hypertension: (6) Acute alcohol intoxication delirium with moderate or severe use disorder: Plan 69 years old male with PMH of FULL CODE @ home, HTN, non-ischemic cardiomyopathy with chronic systolic CHF with LVEF 30%, normal RV systolic function, and indeterminate LV diastolic function, s/p AICD, and ongoing EtOH abuse who presented to [facility] ER on 09/29/2024 with comsplaint of abdominal distention, generally overall feeling unwell. On exam he did not appear anxious, no tremors. No significant ascites appreciated during my physical exam. No RUQ tenderness. Only trace bilateral LE edema. Patient was subsequently admitted to the inpatient hospitalist service @ [facility] on 09/29/2024 with the following diagnoses: 1. Acute ETOH intoxication with ETOH 143.3 mg/dL (09/29/2024, 5:12pm). 2. Acute ETOH withdrawal with last swig of whisky (09/29/2024, 6:00am). 3. Acute hypokalemia with admission K 2.4 mmol/L (09/29/2024, 3:38pm). 4. Acute hypomagnesemia with admission Mg 1.6 mg/dL (09/29/2024, 3:38pm). 5. Acute hypophosphatemia with admission PO4 2.0 mg/dL (, 9:14pm). 6. Acute hypoxic respiratory failure with O2 saturation 71% on room air (09/30/2024, 2:10am), now with O2 saturation 88-89% on 10 liters/minute O2 via oxymask (09/30/2024, 7:30am). 7. Acute hypercapnic respiratory failure with CO2 45 mmol/L (09/30/2024, 7:03am). 8. Acute kidney injury with admission creatinine 2.20 mg/dL (09/29/2024, 3:38pm). 9. Acute lactic acidosis with admission lactic acid #1 4.2 mmol/L (09/30/2024, 3:24pm). 10.Acute exacerbation of chronic systolic CHF with reduced LVEF 30%, normal RV systolic function, inability to assess LV diastolic function due to prior mitral valve repair (as reported on 06/08/2022 TTE, CARDS Dr. Olman Collins). 11.Acute type II NSTEMI with troponin #1 21.8 pg/mL (, 3:38pm) and troponin #2 22.9 pg/mL (, 5:12pm). The following medical issues are being addressed on 10/01/2024: 1. Acute ETOH intoxication with ETOH 143.3 mg/dL (09/29/2024, 5:12pm). Continue ETOH abstinence while in [facility]. 2. Acute ETOH withdrawal with last swig of whisky (09/29/2024, 6:00am). Continue telemetry, CIWA scale scoring with ativan prn, MVI, thiamine, and folate supplementation. 3. Acute hypokalemia with admission K 2.4 mmol/L (09/29/2024, 3:38pm). PERSISTENT s/p supplementation with KCl 40meq PO x 1 dose (09/29/2024, 6:15pm) with post-supplement K 3.2 mmol/L (09/30/2024, 7:03am) and current K 3.0 mmol/L (09/30/2024, 11:09am). Patient subsequently received KCl 10meq IV q1h x 6 bags (09/30/2024, 12:43pm, 12:44pm, 1:34pm). PERSISTENT with post-supplement K 3.4 mmol/L (10/01/2024, 8:43am). I will supplement with KCl 10meq IVv q1h x 4 bags (10/01/2024, 6:47pm). I will check repeat K level in the 10/02/2024 am. Of note, etiology of acute hypokalemia is most probably due to chronic ETOH- mediated berta-uresis. 4. Acute hypomagnesemia with admission Mg 1.6 mg/dL (09/29/2024, 3:38pm). RESOLVED s/p supplement with magnesium sulfate 1g IV x 2 doses (09/29/2024, 6:13pm, 9:42pm) with post-supplement Mg 2.0 mg/dL (09/30/2024, 7:03am) and current Mg 1.9 mg/dL (10/01/2024, 4:41am). I will check repeat Mg level in the 10/02/2024 am. Of note, etiology of acute hypomagnesemia was most probably due to chronic ETOH-mediated magne-uresis. 5. Acute hypophosphatemia with admission PO4 2.0 mg/dL (, 9:14pm). No KPO4 supplement given repeat, normal PO4 4.0 mg/dL (09/30/2024, 3:24pm) and current PO4 3.5 mg/dL (10/01/2024, 4:41am). Check repeat PO4 level in the 10/02/2024 am, and supplement to attain/maintain PO4 level > 2.5 mg/dL. 6. Acute hypoxic respiratory failure with O2 saturation 71% on room air (09/30/2024, 2:10am), followed by O2 saturation 88-89% on 10 liters/minute O2 via oxymask (09/30/2024, 7:30am), followed by O2 saturation 94% on High Flow oxygen @ 40 L/min, FIO2 = 0.45 covering patient's mouth and nose (10/01/2024, 6:01pm). Etiology of acute hypoxic respiratory failure remains unclear as patient remains afebrile with WBC remaining normal (cf., admission WBC 5.56, N56 L30 M12 E1 B1 (09/29/2024, 3:38pm) and repeat WBC 9.38, no differential (09/30/2024, 7:03am) and portable CXR (09/29/2024) negative for infiltrate/consolidation, effusion, cardiomegaly, pulmonary vascular congestion, or pneumothorax (by my review). Subsequently, I ordered procalcitonin (09/30/2024, 2:32pm), lactic acid (09/30/2024, 2:32pm), and portable CXR (09/30/2024, 2:33pm). Subsequently, procalcitonin was normal @ 0.10 ng/mL (09/30/2024, 3:24pm), lactic acid was elevated at 4.2 mmol/L (09/30/2024, 3:24pm), and portable CXR (09/30/2024, 2:33pm) revealed "Stable cardiac valve repair and pacemaker. Stable cardiomegaly with increased pulmonary vascular congestion. There is increased patchy opacity throughout the right lung and at the left lung base. No pleural effusion or pneumothorax." Hence, acute exacerbation of chronic systolic CHF with last recorded LVEF 30% (as noted on 06/08/2022, 1:13pm TTE, CARDS Dr. Olman Collins) may be contributing to patient's acute hypoxic respiratory failure. Subsequently, I have ordered TTE for the 10/02/2024 am. In the interim, patient is NOT being started on lasix and is being held off his home-scheduled metoprolol succinate XL 50mg PO qam, given the potential for either/both medications to lower patient's BP below current BP 106/80 (10/01/2024, 6:01pm). 7. Acute hypercapnic respiratory failure with CO2 45 mmol/L (09/30/2024, 7:03am) and CO2 35 mmol/L (10/01/2024, 4:41am). Etiology of of acute hypercapnic respiratory failure remains unclear in this patient who is still hyperventilating at 29 breaths/minute (09/30/2024, 7:30am) to 34 breaths/minute (09/30/2024, 1:03pm) to 24 breaths/minute (10/01/2024, 8:00 am and 6:01pm). I will check repeat CO2 level in the 10/02/2024 am. In the interim, I ordered portable CXR (09/30/2024, 2:33pm) to check for evidence of COPD, bronchiectasis/fibrosis, and/or atelectasis, which can lead to hypercapnia, and none of which were observed on portable CXR (09/30/2024, 2:33pm). 8. Acute kidney injury with admission creatinine 2.20 mg/dL (09/29/2024, 3:38pm). cf., admission creatinine 2.20 mg/dL (09/29/2024, 3:38pm). cf., repeat creatinine 1.90 mg/dL (09/30/2024, 7:03am). cf., current creatinine 1.88 mg/dL (10/01/2024, 4:41am). cf., baseline creatinine range, 0.95 mg/dL (04/25/2022, 6:21am) to 1.37 mg/dL (07/04/2024, 7:12am). Etiology of acute kidney injury remains unclear, but may be due to patient's home-scheduled sacubitril 49mg - valsartan 51mg PO bid, lasix 40mg PO qam, spironolactone 25mg PO daily, and lisinopril 20mg PO daily given the potential for any/all of these agents to cause further renal embarrassment. Hence, I have opted to hold OFF patient's home-scheduled sacubitril 49mg - valsartan 51mg PO bid, lasix 40mg PO qam, spironolactone 25mg PO daily, and lisinopril 20mg PO daily, and I will check repeat creatinine level in the 10/02/2024 am. 9. Acute lactic acidosis with admission lactic acid #1 4.2 mmol/L (09/30/2024, 3:24pm). cf., lactic acid #2 4.3 mmol/L (09/30/2024, 6:18pm). cf., lactic acid #3 3.6 mmol/L (09/30/2024, 8:00pm). cf., lactic acid #4 3.3 mmol/L (10/01/2024, 4:41am). cf., lactic acid #5 5.7 mmol/L (10/01/2024, 9:04am). cf., lactic acid #6 (10/01/2024, 6:50pm). Etiology of acute lactic acidosis remains unclear, but is probably due to a combination of (a) acute dehydration from chronic ETOH-mediated diuresis and (b) pufch-[id number] transaminitis, which in turn, is due to chronic alcoholic hepatitis. cf., AST 58 U/L, ALT 25 U/L, ALK PHOS 168 U/L (09/29/2024, 3:38pm). cf., AST 45 U/L, ALT 22 U/L, ALK PHOS 164 U/L (09/30/2024, 7:03am). cf., AST 41 U/L, ALT 18 U/L, ALK PHOS 153 U/L (10/01/2024, 4:41am). cf., baseline AST range, 18 - 33 U/L (10/22/2020 - 07/04/2024), ALT range, 12-38 U/L (10/22/2020 - 07/04/2024), ALK PHOS range, 110-124 U/L (03/09/2022 - 07/04/2024). To address (a), patient received 1 liter of 0.9% NS @ 999 mL/hr (09/29/2024, 6:16pm), followed by 1 liter of lactated Ringers @ 125 mL/hr (09/29/2024, 9:42pm) in [facility] ER. Patient is being held off further IV fluid rehydration therapy in order to avoid further cardio-pulmonary embarrassment. 10. Acute exacerbation of chronic systolic CHF with reduced LVEF 30%, normal RV systolic function, inability to assess LV diastolic function due to prior mitral valve repair (as reported on 06/08/2022 TTE, CARDS Dr. Olman Collins). s/p AICD. Hold off home-scheduled metoprolol succinate 50mg PO qam in order to avoid further cardio-pulmonary embarrassment. Hold OFF home-scheduled sacubitril 49mg - valsartan 51mg PO bid, lasix 40mg PO qam, spironolactone 25mg PO daily, and lisinopril 20mg PO daily, given the potential for any/all of these agents to cause further renal embarrassment. cf., admission creatinine 2.20 mg/dL (09/29/2024, 3:38pm). cf., repeat creatinine 1.90 mg/dL (09/30/2024, 7:03am). cf., current creatinine 1.88 mg/dL (10/01/2024, 4:41am). cf., baseline creatinine range, 0.95 mg/dL (04/25/2022, 6:21am) to 1.37 mg/dL (07/04/2024, 7:12am). I will check repeat creatinine level in the 10/02/2024 am. 11. Acute type II NSTEMI with troponin #1 21.8 pg/mL (, 3:38pm) and troponin #2 22.9 pg/mL (, 5:12pm). Etiology of nominally elevated troponin levels remains unclear, but is most probably due to demand ischemia, which in turn, is due to (a) acute hypoxic respiratory failure, which in turn, is due to (b) acute exacerbation of chronic systolic CHF with reduced LVEF 30%, normal RV systolic function, inability to assess LV diastolic function due to prior mitral valve repair (as reported on 06/08/2022 TTE, CARDS Dr. Olman Collins). Hence, I have opted to observe this laboratory anomaly at this time. 12. Disposition. Code status, FULL CODE @ home. ALS as required. Condition of patient remains tenuous, if not terminal, given the severity of patient's medical problems noted above. To this end, I have called and left 10 different messages on the answering machine of patient's daughter, Ms. Carla Tidwell ( ) from 09/30/2024, 8:31am through 10/01/2024, 7:20pm, and I have not received any callback from Ms. Tidwell. Unfortunately, I have no other contact phone number for Ms. Tidwell, and I have no other contact center professional with whom I can discuss patient's medical problems noted above. Admission and Anticipated Discharge Date Admission Date: September 29, 2024 Subjective Unavailable as patient remains lethargic, obtunded, and non-verbal. Review of Systems Constitutional: Unavailable as patient remains lethargic, obtunded, and non-verbal. Physical Exam Constitutional: General: Comfortable, lethargic, obtunded. Non-verbal with mouth hanging wide open on High Flow oxygen @ 40 L/min, FIO2 = 0.45 covering patient's mouth and nose (10/01/2024, 6:01pm). HEENT: Normocephalic, atraumatic. Pupils equally round and reactive to light. No nystagmus, gaze paresis, anisocoria, miosis, mydriasis, hyphema, scleral injection, conjunctivitis, or pterygium. No otorrhea. No pharyngeal erythema, edema, or discharge. Neck: Supple, no stridor, bruit, goiter, or hepato-jugular reflux. Jugular venous pressure is estimated to be 3 cm above the sternal angle of [place], which in turn, is 5 cm above the level of the right atrium; with jugular venous pressure estimated to be 8 cm, then, there is no jugular venous distention on 10/01/2024. Lymphatics: No cervical (anterior/posterior), supraclavicular, infraclavicular, axillary, epitrochlear, or inguinal adenopathy. Chest: Symmetric rise and fall with respirations. Non-tender to palpation. Lungs: Clear to auscultation and percussion. No audible expiratory wheeze, egophony, pectoriloquy, increase in tactile fremitus, or flatness/dullness to percussion at the bases. Heart: Increased rate. Regular rhythm. S1 and S2 noted. No S3 or S4 summation gallop. No tripartite friction rub. Grade II/ early systolic murmur @ LLSB without radiation to the carotids, axilla, or back, and which remains invariant in regards to the respiratory cycle. Abdomen: Soft, non-tender, non-distended. No rebound, guarding, Logan's sign, or organomegaly. Bowel sounds auscultated in all 4 quadrants. Extremities: No clubbing, cyanosis, or edema in upper extremities or lower extremities bilaterally. 2+ pedal pulses bilaterally. Skin: No decubitus ulcer or enanthem. Genito-urinary: No urethral discharge. + poole catheter with 885 mL urine produced (09/30/2024, 6:42pm - 10/01/2024, 6:42pm). Neurology: No myoclonus, tremors, or tics. Psychiatry: No homicidal ideation. No suicidal ideation. No flat affect; smiles appropriately. Results & Data Results & Data Vital Signs (Past 12 Hours) Vital Signs Temp Pulse Pulse Resp BP BP Pulse Ox 10/01/24 18:01 109 H 106/80 10/01/24 17:41 119 H 113/89 10/01/24 17:00 125 H 24 125/96 94 10/01/24 16:00 124 H 24 123/91 92 10/01/24 15:29 100 H 23 94 10/01/24 15:00 36.6 C 122 H 24 129/105 H 94 10/01/24 14:00 120 H 24 127/79 93 10/01/24 13:00 112 H 24 113/86 94 10/01/24 12:30 107 H 109/79 10/01/24 12:00 122 H 24 145/87 H 96 10/01/24 11:54 121 H 119/88 10/01/24 11:48 122 H 24 119/88 10/01/24 11:25 36.4 C L 10/01/24 11:22 122 H 20 94 10/01/24 11:00 124 H 24 107/71 96 10/01/24 10:00 118 H 21 111/80 96 10/01/24 09:00 117 H 22 118/86 95 10/01/24 08:49 10/01/24 08:30 118 H 20 94 10/01/24 08:03 117 H 21 95 10/01/24 08:00 128/94 10/01/24 08:00 128/94 10/01/24 08:00 128/94 10/01/24 08:00 117 H 24 128/94 95 10/01/24 07:57 117 H 20 94 10/01/24 07:48 119 H 22 85 L 10/01/24 07:36 116 H 23 93 10/01/24 07:30 128/94 10/01/24 07:12 115 H 21 95 10/01/24 07:11 36.5 C 10/01/24 07:00 142/101 H 10/01/24 07:00 142/101 H 10/01/24 07:00 142/101 H 10/01/24 07:00 115 H 21 97 10/01/24 07:00 115 H 21 142/101 H 97 10/01/24 06:48 112 H 19 94 O2 Del Method O2 Flow Rate FiO2 10/01/24 18:01 10/01/24 17:41 10/01/24 17:00 High Flow Nasal Cannula 40 0.45 10/01/24 16:00 High Flow Nasal Cannula 40 0.45 10/01/24 15:29 High Flow Nasal Cannula 40 45 10/01/24 15:00 High Flow Nasal Cannula 40 0.45 10/01/24 14:00 High Flow Nasal Cannula 10/01/24 13:00 High Flow Nasal Cannula 40 0.45 10/01/24 12:30 10/01/24 12:00 High Flow Nasal Cannula 40 0.45 10/01/24 11:54 10/01/24 11:48 10/01/24 11:25 10/01/24 11:22 High Flow Nasal Cannula 40 45 10/01/24 11:00 High Flow Nasal Cannula 40 0.45 10/01/24 10:00 High Flow Nasal Cannula 40 0.45 10/01/24 09:00 High Flow Nasal Cannula 40 0.45 10/01/24 08:49 High Flow Nasal Cannula 40 0.45 10/01/24 08:30 High Flow Nasal Cannula 40 45 10/01/24 08:03 10/01/24 08:00 10/01/24 08:00 10/01/24 08:00 10/01/24 08:00 High Flow Nasal Cannula 40 0.45 10/01/24 07:57 10/01/24 07:48 10/01/24 07:36 10/01/24 07:30 10/01/24 07:12 10/01/24 07:11 10/01/24 07:00 10/01/24 07:00 10/01/24 07:00 10/01/24 07:00 10/01/24 07:00 High Flow Nasal Cannula 40 0.45 10/01/24 06:48 Laboratory Results Abnormal lab results 09/30/24 09/30/24 10/01/24 Range/Units 18:12 20:00 04:41 WBC 11.00 H (4.8-10.8) K/ul RBC 4.05 L (4.70-6.10) M/uL POC Hgb 13.6 L (14.0-18.0) g/dl POC Hct 40 L (42-52) % MCV 105.4 H (80.0-100.0) fL MCH 36.0 H (25.0-34.0) pg RDW Std Deviation 54.4 H (36.4-46.3) fL Reticulocyte % (Auto) 2.33 H (0.50-2.00) % Neut # (Auto) 9.10 H (1.40-6.50) K/uL POC pH 7.46 H (7.35-7.45) POC pCO2 53 H (35-46) mmHg POC pO2 45 L (80-95) mmHg POC HCO3 38 H (19-24) smiley/L POC Total CO2 40 H (24-31) mmol/L POC Base Excess 14.0 H (-9-1.8) smiley/L ABG pH (Temp Correct) 7.473 H (7.35-7.45) ABG pCO2 (Temp Corrct 52 H (35-46) mmHg POC ABG O2 Sat 82.0 L (90-95) % Chloride 91 L (98-107) mmol/L Carbon Dioxide 35 H (21-32) mmol/L Anion Gap 13 H (3-11) Creatinine 1.88 H (0.6-1.4) mg/dl Lactate 3.6 H* 3.3 H* (0.4-2.0) mmol/L Transferrin 150 L (200-360) mg/dl Ferritin 537.4 H (8-388) ng/ml Total Bilirubin 1.6 H (0.2-1.0) mg/dl AST 41 H (13-39) U/L Alkaline Phosphatase 153 H (34-104) U/L Albumin 2.8 L (3.4-5.0) gm/dl Albumin/Globulin Ratio 0.8 L (0.9-2) 10/01/24 10/01/24 Range/Units 08:43 09:04 WBC (4.8-10.8) K/ul RBC (4.70-6.10) M/uL POC Hgb 12.9 L (14.0-18.0) g/dl POC Hct 38 L (42-52) % MCV (80.0-100.0) fL MCH (25.0-34.0) pg RDW Std Deviation (36.4-46.3) fL Reticulocyte % (Auto) (0.50-2.00) % Neut # (Auto) (1.40-6.50) K/uL POC pH 7.53 H* (7.35-7.45) POC pCO2 (35-46) mmHg POC pO2 58 L (80-95) mmHg POC HCO3 34 H (19-24) smiley/L POC Total CO2 36 H (24-31) mmol/L POC Base Excess 12.0 H (-9-1.8) smiley/L ABG pH (Temp Correct) 7.534 H* (7.35-7.45) ABG pCO2 (Temp Corrct (35-46) mmHg POC ABG O2 Sat (90-95) % Chloride (98-107) mmol/L Carbon Dioxide (21-32) mmol/L Anion Gap (3-11) Creatinine (0.6-1.4) mg/dl Lactate 5.7 H* (0.4-2.0) mmol/L Transferrin (200-360) mg/dl Ferritin (8-388) ng/ml Total Bilirubin (0.2-1.0) mg/dl AST (13-39) U/L Alkaline Phosphatase (34-104) U/L Albumin (3.4-5.0) gm/dl Albumin/Globulin Ratio (0.9-2) PG Care Time/CCT Total # of Minutes Spent Total Time Spent with Patient: Total time spent is greater than 50% in coordination of care (as documented) at patient's floor/unit and/or counseling patient: Coding Level of Care Code 83779 SUB INP/OBS CARE 3/50MIN Diagnoses Alcohol abuse F10.10 Electrolyte abnormality E87.8 Chronic systolic CHF (congestive heart failure) I50.22 Depression with anxiety F41.8 Hypertension I10 Acute alcohol intoxication delirium with moderate or severe use disorder F10.221
[2024-10-01] MEDS: POTASSIUM CHLORIDE / WTR 10 MEQ/100 ML PLCT IV SCH (20:15)
[2024-10-02 05:06] LABS: Hematocrit (blood only) 36.7 % (42.0-52.0); Hemoglobin 12.2 g/dl (14.0-18.0); Immature Granulocytes # (auto) 0.08 K/uL (0.01-0.20); Immature Granulocytes % (auto) 0.9 %; Mean Corpuscular Hemoglobin 35.5 pg (25.0-34.0); Mean Corpuscular Volume 106.7 fL (80.0-100.0); Platelet Count 177 K/uL (130-400); RDW Standard Deviation 54.6 fL (36.4-46.3); Red Blood Count 3.44 M/uL (4.70-6.10); White Blood Count 9.08 K/ul (4.8-10.8)
[2024-10-02 05:22] LABS: Anion Gap 9.0 (3-11); Blood Urea Nitrogen 32.0 mg/dl (6-23); Calcium 8.2 mg/dl (8.6-10.3); Carbon Dioxide 29.0 mmol/L (21-32); Chloride 100.0 mmol/L (98-107); Creatinine Clr Calc Pharmacy 39.4 ml/min; Glucose 106.0 mg/dl (70-99(Fasting)); Magnesium 1.9 mg/dl (1.7-2.4); Potassium 3.8 mmol/L (3.5-5.1); Sodium 138.0 mmol/L (136-145)
[2024-10-02] MEDS: MAGNESIUM SULFATE / D5W 1 GM/100 ML BAG IV SCH (05:30)
[2024-10-02] MEDS: POTASSIUM CHLORIDE / WTR 10 MEQ/100 ML PLCT IV SCH (05:30)
--- NOTE | 2024-10-02 09:34 | Critical Care Progress Note ---
Date of Service October 02, 2024 Assessment & Plan (1) Acute alcohol intoxication: Plan: Reason Critically Ill: 69-year-old male with acute agitated delirium PLAN: Neuro: Acute agitated delirium - Off ketamine transition to Precedex - Weaning Precedex as tolerated hopefully be able to discontinue today - Tolerating scheduled phenobarb ammonia level: Within normal limits Resp: Continuous end-tidal CO2 monitoring - Mild hypoxia requiring supplemental oxygen -Reviewed bilateral venous duplex findings: No evidence of acute DVT CV: History nonischemic cardiomyopathy - IV metoprolol 5 mg every 6 hours Fluids/Renal: Acute kidney injury: Nadired -Serrano catheter Hypokalemia: Resolved Mild lactic acid acidosis: Resolved - Received 500 mg thiamine IVx3, now 100 mg daily Mixed metabolic acidosis: Lactic acid acidosis with metabolic alkalosis and very mild secondary respiratory alkalosis - 500 mg acetazolamide IV to assist with gentle diuresis given history of CHF ID: Monitor fever curve GI/Nutrition: Mild transaminitis -Continue to monitor - Acute hepatitis panel: Hepatitis B and C: negative Course safe to be placed: Initiate tube feedings and vitamin and mineral supplementation Heme: Anemia - Appropriate reticulocytosis, appears to be anemia related to alcohol consumption, folate B12 within acceptable range DVT prophylaxis: Heparin 7500 SQ 3 times daily - Presumptive history of prior DVT given calcification of thrombus in mid right femoral vein: Review of chart demonstrates orthopedic injury history to that affected leg - IV team was ultrasounding upper extremity possible thrombus incidentally noted will obtain bilateral upper extremity duplexes Endocrine: ICU hyperglycemia protocol Vascular access: Peripheral IVs Code Status: Full code Disposition: ICU while requiring Precedex (2) Acute alcohol intoxication delirium with moderate or severe use disorder: (3) Electrolyte abnormality: (4) Fracture of right tibial plateau: (5) Chronic systolic CHF (congestive heart failure): (6) S/P ICD (internal cardiac defibrillator) procedure: (7) Nonischemic cardiomyopathy: Admission and Anticipated Discharge Date Admission Date: September 29, 2024 Supervising Physician Co-Signing Physician Notes I have personally spent 35 minutes of critical care time in the direct management of this patient. This is a life/limb threatening event. This includes time spent evaluating patient, direct bedside care, chart review, placing orders, interpretation of diagnostic studies, discussion with consultants, patient, and/or family members regarding treatment decisions, as well as other required patient management activities. This time is exclusive of all separately billable procedures, and teaching time and separate from and in addition to any other critical care service time. Subjective Remains somnolent; however, might be slightly better than yesterday. No overnight events Physical Exam Physical Exam: General: Intermittently agitated intermittently able to follow simple commands Skin: Warm, dry, Head: Atraumatic Ears, nose, mouth and throat: airway patent Cardiovascular: Normal peripheral perfusion Respiratory: no respiratory distress Gastrointestinal: Non distended Musculoskeletal: No deformity Results & Data Results & Data Vital Signs (Past 12 Hours) Vital Signs Temp Pulse Pulse Resp BP Pulse Ox O2 Del Method 10/02/24 08:12 76 17 10/02/24 07:32 72 20 96 Nasal Cannula, Oxymask 10/02/24 07:06 36.3 C L 76 24 95 Oxymask, High Flow Nasal Cannula 10/02/24 07:06 36.3 C L 10/02/24 07:00 113/83 10/02/24 06:47 74 17 94 10/02/24 06:38 74 17 95 10/02/24 06:30 120/91 10/02/24 06:28 73 120/91 10/02/24 06:26 74 17 96 10/02/24 06:13 77 129/88 10/02/24 06:12 129/88 10/02/24 06:12 77 17 91 10/02/24 05:33 75 17 99 10/02/24 05:30 124/90 10/02/24 05:27 75 18 99 10/02/24 05:15 76 19 98 10/02/24 04:30 77 19 98 10/02/24 04:30 117/87 10/02/24 04:00 78 18 99 10/02/24 04:00 119/85 10/02/24 03:54 79 20 99 10/02/24 03:30 116/80 10/02/24 03:15 81 20 98 10/02/24 03:00 105/82 10/02/24 02:51 85 21 97 10/02/24 02:36 89 22 96 10/02/24 02:30 119/83 10/02/24 02:18 90 24 94 10/02/24 02:09 90 25 H 93 10/02/24 02:00 90 24 93 Oxymask, Free Flow/Blow-by 10/02/24 02:00 91 H 22 92 Oxymask, High Flow Nasal Cannula 10/02/24 02:00 112/86 10/02/24 01:45 91 H 26 H 87 L 10/02/24 01:42 93 H 26 H 87 L 10/02/24 01:30 36.4 C L 10/02/24 01:30 127/94 10/02/24 01:21 88 31 H 95 10/02/24 01:09 89 26 H 93 10/02/24 00:58 87 120/90 10/02/24 00:57 89 22 97 10/02/24 00:57 121/90 10/02/24 00:42 88 114/94 10/02/24 00:33 94 H 28 H 97 10/02/24 00:31 114/94 10/02/24 00:20 117/79 10/02/24 00:18 88 22 94 10/02/24 00:00 36.6 C 10/01/24 23:30 108/79 10/01/24 23:27 88 22 90 10/01/24 23:03 88 18 94 10/01/24 23:01 111/76 10/01/24 23:00 90 10/01/24 22:57 109 H 22 92 10/01/24 22:42 97 H 20 96 10/01/24 22:30 91 H 23 103/72 91 10/01/24 22:25 90 25 H 92 High Flow Nasal Cannula 10/01/24 22:05 99/69 L 10/01/24 22:03 88 20 90 10/01/24 21:45 92 H 19 93 O2 Flow Rate FiO2 10/02/24 08:12 10/02/24 07:32 40 40 10/02/24 07:06 10/02/24 07:06 10/02/24 07:00 10/02/24 06:47 10/02/24 06:38 10/02/24 06:30 10/02/24 06:28 10/02/24 06:26 10/02/24 06:13 10/02/24 06:12 10/02/24 06:12 10/02/24 05:33 10/02/24 05:30 10/02/24 05:27 10/02/24 05:15 10/02/24 04:30 10/02/24 04:30 10/02/24 04:00 10/02/24 04:00 10/02/24 03:54 10/02/24 03:30 10/02/24 03:15 10/02/24 03:00 10/02/24 02:51 10/02/24 02:36 10/02/24 02:30 10/02/24 02:18 10/02/24 02:09 10/02/24 02:00 60 100 10/02/24 02:00 60 100 10/02/24 02:00 10/02/24 01:45 10/02/24 01:42 10/02/24 01:30 10/02/24 01:30 10/02/24 01:21 10/02/24 01:09 10/02/24 00:58 10/02/24 00:57 10/02/24 00:57 10/02/24 00:42 10/02/24 00:33 10/02/24 00:31 10/02/24 00:20 10/02/24 00:18 10/02/24 00:00 10/01/24 23:30 10/01/24 23:27 10/01/24 23:03 10/01/24 23:01 10/01/24 23:00 10/01/24 22:57 10/01/24 22:42 10/01/24 22:30 10/01/24 22:25 50 60 10/01/24 22:05 10/01/24 22:03 10/01/24 21:45 Critical Care Results & Data Vital Signs (Past 12 Hours) Vital Signs Temp Pulse Pulse Resp BP Pulse Ox Pulse Ox 10/02/24 09:36 75 19 95 10/02/24 09:30 117/90 10/02/24 09:18 76 20 95 10/02/24 09:00 78 18 94 10/02/24 09:00 130/90 10/02/24 08:35 75 21 98 10/02/24 08:32 108/76 10/02/24 08:26 19 88 L 10/02/24 08:14 125/99 10/02/24 08:12 76 17 10/02/24 08:11 77 22 94 10/02/24 08:00 10/02/24 08:00 76 10/02/24 08:00 95 10/02/24 07:38 73 18 97 10/02/24 07:32 72 20 96 10/02/24 07:30 118/84 10/02/24 07:23 72 17 97 10/02/24 07:17 73 15 96 10/02/24 07:06 36.3 C L 76 24 95 10/02/24 07:06 36.3 C L 10/02/24 07:00 113/83 10/02/24 06:47 74 17 94 10/02/24 06:38 74 17 95 10/02/24 06:30 120/91 10/02/24 06:28 73 120/91 10/02/24 06:26 74 17 96 10/02/24 06:13 77 129/88 10/02/24 06:12 129/88 10/02/24 06:12 77 17 91 10/02/24 05:33 75 17 99 10/02/24 05:30 124/90 10/02/24 05:27 75 18 99 10/02/24 05:15 76 19 98 10/02/24 04:30 77 19 98 10/02/24 04:30 117/87 10/02/24 04:00 78 18 99 10/02/24 04:00 119/85 10/02/24 03:54 79 20 99 10/02/24 03:30 116/80 10/02/24 03:15 81 20 98 10/02/24 03:00 105/82 10/02/24 02:51 85 21 97 10/02/24 02:36 89 22 96 10/02/24 02:30 119/83 10/02/24 02:18 90 24 94 10/02/24 02:09 90 25 H 93 10/02/24 02:00 90 24 93 10/02/24 02:00 91 H 22 92 10/02/24 02:00 112/86 10/02/24 01:45 91 H 26 H 87 L 10/02/24 01:42 93 H 26 H 87 L 10/02/24 01:30 36.4 C L 10/02/24 01:30 127/94 10/02/24 01:21 88 31 H 95 10/02/24 01:09 89 26 H 93 10/02/24 00:58 87 120/90 10/02/24 00:57 89 22 97 10/02/24 00:57 121/90 10/02/24 00:42 88 114/94 10/02/24 00:33 94 H 28 H 97 10/02/24 00:31 114/94 10/02/24 00:20 117/79 10/02/24 00:18 88 22 94 10/02/24 00:00 36.6 C 10/01/24 23:30 108/79 10/01/24 23:27 88 22 90 10/01/24 23:03 88 18 94 10/01/24 23:01 111/76 10/01/24 23:00 90 10/01/24 22:57 109 H 22 92 10/01/24 22:42 97 H 20 96 O2 Del Method O2 Del Method O2 Flow Rate O2 Flow Rate FiO2 10/02/24 09:36 10/02/24 09:30 10/02/24 09:18 10/02/24 09:00 10/02/24 09:00 10/02/24 08:35 10/02/24 08:32 10/02/24 08:26 10/02/24 08:14 10/02/24 08:12 10/02/24 08:11 10/02/24 08:00 High Flow Nasal Cannula 10/02/24 08:00 10/02/24 08:00 High Flow Nasal Cannula 40 10/02/24 07:38 10/02/24 07:32 Nasal Cannula, Oxymask 40 40 10/02/24 07:30 10/02/24 07:23 10/02/24 07:17 10/02/24 07:06 Oxymask, High Flow Nasal Cannula 10/02/24 07:06 10/02/24 07:00 10/02/24 06:47 10/02/24 06:38 10/02/24 06:30 10/02/24 06:28 10/02/24 06:26 10/02/24 06:13 10/02/24 06:12 10/02/24 06:12 10/02/24 05:33 10/02/24 05:30 10/02/24 05:27 10/02/24 05:15 10/02/24 04:30 10/02/24 04:30 10/02/24 04:00 10/02/24 04:00 10/02/24 03:54 10/02/24 03:30 10/02/24 03:15 10/02/24 03:00 10/02/24 02:51 10/02/24 02:36 10/02/24 02:30 10/02/24 02:18 10/02/24 02:09 10/02/24 02:00 Oxymask, Free Flow/Blow-by 60 100 10/02/24 02:00 Oxymask, High Flow Nasal Cannula 60 100 10/02/24 02:00 10/02/24 01:45 10/02/24 01:42 10/02/24 01:30 10/02/24 01:30 10/02/24 01:21 10/02/24 01:09 10/02/24 00:58 10/02/24 00:57 10/02/24 00:57 10/02/24 00:42 10/02/24 00:33 10/02/24 00:31 10/02/24 00:20 10/02/24 00:18 10/02/24 00:00 10/01/24 23:30 10/01/24 23:27 10/01/24 23:03 10/01/24 23:01 10/01/24 23:00 10/01/24 22:57 10/01/24 22:42 Lab & Micro Results (Past 24 Hours) RBC 3.44 M/uL (4.70-6.10) L 10/02/24 WBC 9.08 K/ul (4.8-10.8) 10/02/24 Hgb 12.2 g/dl (14.0-18.0) L 10/02/24 Hct 36.7 % (42.0-52.0) L 10/02/24 MCV 106.7 fL (80.0-100.0) H 10/02/24 MCH 35.5 pg (25.0-34.0) H 10/02/24 MCHC 33.2 g/dL (32.0-36.0) 10/02/24 RDW Standard Deviation 54.6 fL (36.4-46.3) H 10/02/24 RDW Coefficient of Variation 13.9 % (11.5-14.5) 10/02/24 Plt Count 177 K/uL (130-400) 10/02/24 MPV 10.5 fL (9.4-12.4) 10/02/24 Neutrophils (%) (Auto) 82.8 % 10/02/24 Lymphocytes (%) (Auto) 10.2 % 10/02/24 Monocytes # (Auto) 0.51 K/uL (0.11-0.59) 10/02/24 Eosinophils # (Auto) 0.02 K/uL (0.00-0.50) 10/02/24 Immature Granulocyte % (Auto) 0.9 % 10/02/24 Neutrophils # (Auto) 7.51 K/uL (1.40-6.50) H 10/02/24 Lymphocytes # (Auto) 0.93 K/uL (1.20-3.40) L 10/02/24 Monocytes # (Auto) 0.51 K/uL (0.11-0.59) 10/02/24 Eosinophils # (Auto) 0.02 K/uL (0.00-0.50) 10/02/24 Basophils # (Auto) 0.03 K/uL (0.00-0.20) 10/02/24 Immature Granulocyte # (Auto) 0.08 K/uL (0.01-0.20) 5 Na 138 mmol/L (136-145) 10/02/24 K 3.8 mmol/L (3.5-5.1) 10/02/24 Cl 100 mmol/L (98-107) 10/02/24 CO2 29 mmol/L (21-32) 10/02/24 Anion Gap 9 (3-11) 10/02/24 BUN 32 mg/dl (6-23) H 10/02/24 Creatinine 1.91 mg/dl (0.6-1.4) H 10/02/24 BUN/Creatinine Ratio 16.8 (10-20) 10/02/24 Glu 106 mg/dl (70-99(Fasting)) H 10/02/24 Ca 8.2 mg/dl (8.6-10.3) L 10/02/24 Phosphorus Level 4.0 mg/dl (2.5-4.9) 10/02/24 Mg 1.9 mg/dl (1.7-2.4) 10/02/24 04:53 Calcium Level 8.2 mg/dl (8.6-10.3) L 10/02/24 04:53 Diagnostic Findings (Past 24 Hours) KUB X-Ray 10/02/24 07:07 KUB HISTORY: eval for placement of Dobhoff tube COMPARISON STUDY: 09/29/2024 and 09/30/2024 FINDINGS: Feeding tube tip is in the distal stomach or proximal duodenum. No gross bowel obstruction seen. Stable patchy opacity in the lower lungs. Cardiac pacemaker is partially visualized. IMPRESSION: Feeding tube tip is in the distal stomach or proximal duodenum. ACT 112: Negative or not required by law. The above report was generated using voice recognition software. It may contain grammatical, syntax or spelling errors. Electronically signed by: Mario Bingham M.D. 10/02/2024 10:03 AM I & O Totals 24 Hours 10/01/24 10/02/24 10/03/24 06:59 06:59 06:59 Intake Total 1602.8015 / 1822.4485 1235.258 / 1235.258 310.953 / 310.953 Output Total 635 / 635 1010 / 1010 150 / 150 Balance 967.8015 / 1187.4485 225.258 / 225.258 160.953 / 160.953 Cumulative 09/29/24 14:46 thru 10/02/24 10:06 Intake Total 5404.0125 Output Total 2296 Balance 3108.0125 RT Ventilator Mngmt (Last Documented) Ventilator Ordered Settings Respiratory Rate 19 10/02/24 09:36 Fraction of Inspired Oxygen 40 10/02/24 07:32 Ventilator - PT Measurements Respiratory Rate 19 End-Tidal CO2 21 Coding Level of Care Code 85457 CRITICAL CARE 1ST 30-74M Diagnoses Acute alcoholic intoxication with delirium F10.921 Complication of substance-induced condition: with delirium Acute alcohol intoxication delirium with moderate or severe use disorder F10.221 Electrolyte abnormality E87.8 Closed fracture of right tibial plateau, sequela S82.141S Encounter type: sequela Fracture type: closed Chronic systolic CHF (congestive heart failure) I50.22 S/P ICD (internal cardiac defibrillator) procedure Z95.810 Nonischemic cardiomyopathy I42.8 (1) Acute alcohol intoxication Complication of substance-induced condition: with delirium Qualified Code(s): F10.921 - Alcohol use, unspecified with intoxication delirium (4) Fracture of right tibial plateau Encounter type: sequela Fracture type: closed Qualified Code(s): S82.141S - Displaced bicondylar fracture of right tibia, sequela
--- NOTE | 2024-10-02 10:04 | XRay Report ---
KUB HISTORY: eval for placement of Dobhoff tube COMPARISON STUDY: 09/29/2024 and 09/30/2024 FINDINGS: Feeding tube tip is in the distal stomach or proximal duodenum. No gross bowel obstruction seen. Stable patchy opacity in the lower lungs. Cardiac pacemaker is partially visualized. IMPRESSION: Feeding tube tip is in the distal stomach or proximal duodenum. ACT 112: Negative or not required by law. The above report was generated using voice recognition software. It may contain grammatical, syntax o r spelling errors. Electronically signed by: Mario Bingham M.D. 10/02/2024 10:03 AM
[2024-10-02] MEDS ORDERED: Nursing to Pharmacy Communication SCH (10:15)
[2024-10-02] MEDS: MULTI VIT W/MINERALS LIQUID 15 ML UDC PO SCH (11:39)
[2024-10-02] MEDS: FIBERSOURCE HN 1.2 CAL 1000 ML BAG NG SCH (11:39)
[2024-10-02] MEDS: TUBE FEEDING WATER FLUSH NG SCH (11:40)
[2024-10-02 13:38] LABS: Hepatitis A Antibody IgM NON-REACTIVE (NON-REACTIVE); Hepatitis B Core Antibody IgM NON-REACTIVE (NON-REACTIVE)
[2024-10-02 15:27] LABS: 7-Aminoclonaz, Confirm NEGATIVE ng/mL (<25); Hydro-Alp Ur, GC/MS NEGATIVE ng/mL (<25); Hydroxyethylflurazepam, Conf NEGATIVE ng/mL (<50); Hydroxymidazolam Ur, GC/MS NEGATIVE ng/mL (<50); Lorazepam, Ur GC/MS 94 ng/mL (<50); Nordiazepam, Confirm NEGATIVE ng/mL (<50); Oxazepam Ur, GC/MS NEGATIVE ng/mL (<50); Temazepam, Confirm NEGATIVE ng/mL (<50)
--- NOTE | 2024-10-02 15:56 | Ultrasound Report ---
ULTRASOUND BILATERAL UPPER EXTREMITY VENOUS CLINICAL HISTORY: Right arm swelling. COMPARISON STUDY: No priors. TECHNIQUE: Real-time, grayscale, and color Doppler sonography of the deep veins of the right upper ex tremity is performed. Compression and augmentation were utilized. Evaluation of the left upper extrem ity was attempted, and the jugular, subclavian, and cephalic veins were assessed. The patient would n ot tolerate further imaging. FINDINGS: Right upper extremity: There is a short segment of nearly occlusive deep venous thrombosis seen dista lly within one of the brachial veins which extends approximately 3.3 cm in length. The brachial veins are otherwise patent. The right internal jugular and axillary veins are patent and normally compress ible. Normal venous waveforms and augmentation are seen within the right subclavian vein. The cephali c vein is patent. The visualized radial and ulnar veins are patent. There is occlusive superficial ve nous thrombus seen throughout the right basilic vein extending from the upper extremity with the fore arm. Left upper extremity: The left internal jugular vein is patent and normally compressible. The left ce phalic vein is clear. Imaged portions of the left subclavian vein are patent. IMPRESSION: 1. There is a short segment of occlusive deep venous thrombosis within a branch of the right brachial vein as above. 2. There is extensive occlusive superficial venous thrombus throughout the right basilic vein. 3. The imaged veins of the left upper extremity appear clear. Note that the left upper extremity was only partially evaluated. ACT 112: Negative or not required by law. Electronically signed by: Shen Aguilar M.D. 10/02/2024 3:55 PM
[2024-10-02 17:18] LABS: INR 1.1 (0.9-1.1); Partial Thromboplastin Time 27 Seconds (21-31); Prothrombin Time 11.5 Seconds (9.0-12.0)
[2024-10-02] MEDS: HEPARIN 25000 UNIT/500 ML D5W 25,000 UNITS/500 ML BAG IV SCH (17:21)
[2024-10-02] MEDS: Heparin IV Adult Wt-Based Standard *NO* INITIAL Bolus Protocol IV SCH (19:33)
--- NOTE | 2024-10-02 21:20 | Hospitalist Progress Note ---
Date of Service October 02, 2024 Assessment & Plan (1) Alcohol abuse: (2) Electrolyte abnormality: (3) Chronic systolic CHF (congestive heart failure): (4) Depression with anxiety: (5) Hypertension: (6) Acute alcohol intoxication delirium with moderate or severe use disorder: Plan 69 years old male with PMH of FULL CODE @ home, HTN, non-ischemic cardiomyopathy with chronic systolic CHF with LVEF 30%, normal RV systolic function, and indeterminate LV diastolic function, s/p AICD, and ongoing EtOH abuse who presented to [facility] ER on 09/29/2024 with comsplaint of abdominal distention, generally overall feeling unwell. On exam he did not appear anxious, no tremors. No significant ascites appreciated during my physical exam. No RUQ tenderness. Only trace bilateral LE edema. Patient was subsequently admitted to the inpatient hospitalist service @ [facility] on 09/29/2024 with the following diagnoses: 1. Acute ETOH intoxication with ETOH 143.3 mg/dL (09/29/2024, 5:12pm). 2. Acute ETOH withdrawal with last swig of whisky (09/29/2024, 6:00am). 3. Acute hypokalemia with admission K 2.4 mmol/L (09/29/2024, 3:38pm). 4. Acute hypomagnesemia with admission Mg 1.6 mg/dL (09/29/2024, 3:38pm). 5. Acute hypophosphatemia with admission PO4 2.0 mg/dL (, 9:14pm). 6. Acute hypoxic respiratory failure with O2 saturation 71% on room air (09/30/2024, 2:10am), now with O2 saturation 88-89% on 10 liters/minute O2 via oxymask (09/30/2024, 7:30am). 7. Acute hypercapnic respiratory failure with CO2 45 mmol/L (09/30/2024, 7:03am). 8. Acute kidney injury with admission creatinine 2.20 mg/dL (09/29/2024, 3:38pm). 9. Acute lactic acidosis with admission lactic acid #1 4.2 mmol/L (09/30/2024, 3:24pm). 10.Acute exacerbation of chronic systolic CHF with reduced LVEF 30%, normal RV systolic function, inability to assess LV diastolic function due to prior mitral valve repair (as reported on 06/08/2022 TTE, CARDS Dr. Olman Collins). 11.Acute type II NSTEMI with troponin #1 21.8 pg/mL (, 3:38pm) and troponin #2 22.9 pg/mL (, 5:12pm). The following medical issues are being addressed on 10/02/2024: 1. Acute ETOH intoxication with ETOH 143.3 mg/dL (09/29/2024, 5:12pm). Continue ETOH abstinence while in [facility]. 2. Acute ETOH withdrawal with last swig of whisky (09/29/2024, 6:00am). Continue telemetry, CIWA scale scoring with ativan prn, MVI, thiamine, and folate supplementation. 3. Acute hypokalemia with admission K 2.4 mmol/L (09/29/2024, 3:38pm). PERSISTENT s/p supplementation with KCl 40meq PO x 1 dose (09/29/2024, 6:15pm) with post-supplement K 3.2 mmol/L (09/30/2024, 7:03am) and current K 3.0 mmol/L (09/30/2024, 11:09am). Patient subsequently received KCl 10meq IV q1h x 6 bags (09/30/2024, 12:43pm, 12:44pm, 1:34pm). PERSISTENT with post-supplement K 3.4 mmol/L (10/01/2024, 8:43am). Patient subsequently received KCl 10meq IVv q1h x 4 bags (10/01/2024, 6:47pm). Acute hypokalemia RESOLVED with post-supplement K 3.8 mmol/L (10/03/2024, 4:53am). I will check repeat K level in the 10/03/2024 am. Of note, etiology of acute hypokalemia was most probably due to chronic ETOH-mediated berta-uresis. 4. Acute hypomagnesemia with admission Mg 1.6 mg/dL (09/29/2024, 3:38pm). RESOLVED s/p supplement with magnesium sulfate 1g IV x 2 doses (09/29/2024, 6:13pm, 9:42pm) with post-supplement Mg 2.0 mg/dL (09/30/2024, 7:03am), repeat Mg 1.9 mg/dL (10/01/2024, 4:41am), and current Mg 1.9 mg/dL (10/02/2024, 4:53am). I will check repeat Mg level in the 10/03/2024 am. Of note, etiology of acute hypomagnesemia was most probably due to chronic ETOH-mediated magne- uresis. 5. Acute hypophosphatemia with admission PO4 2.0 mg/dL (, 9:14pm). RESOLVED. No KPO4 supplement given repeat, normal PO4 4.0 mg/dL (09/30/2024, 3:24pm), repeat PO4 3.5 mg/dL (10/01/2024, 4:41am), and current PO4 4.0 mg/dL (10/02/2024, 4:53am). Check repeat PO4 level in the 10/03/2024 am, and supplement to attain/maintain PO4 level > 2.5 mg/dL. 6. Acute hypoxic respiratory failure with O2 saturation 71% on room air (09/30/2024, 2:10am), followed by O2 saturation 88-89% on 10 liters/minute O2 via oxymask (09/30/2024, 7:30am), followed by O2 saturation 94% on High Flow oxygen @ 40 L/min, FIO2 = 0.45 (10/01/2024, 6:01pm), followed by O2 saturation 96% on High Flow oxygen @ 40 L/min, FIO2 = 0.40 (10/02/2024, 7:32am). PERSISTENT.Etiology of acute hypoxic respiratory failure remains unclear as patient remains afebrile with WBC remaining normal (cf., admission WBC 5.56, N56 L30 M12 E1 B1 (09/29/2024, 3:38pm) and repeat WBC 9.38, no differential (09/30/2024, 7:03am) and portable CXR (09/29/2024) negative for infiltrate/consolidation, effusion, cardiomegaly, pulmonary vascular congestion, or pneumothorax (by my review). Subsequently, I ordered procalcitonin (09/30/2024, 2:32pm), lactic acid (09/30/2024, 2:32pm), and portable CXR (09/30/2024, 2:33pm). Subsequently, procalcitonin was normal @ 0.10 ng/mL (09/30/2024, 3:24pm), lactic acid was elevated at 4.2 mmol/L (09/30/2024, 3:24pm), and portable CXR (09/30/2024, 2:33pm) revealed "Stable cardiac valve repair and pacemaker. Stable cardiomegaly with increased pulmonary vascular congestion. There is increased patchy opacity throughout the right lung and at the left lung base. No pleural effusion or pneumothorax." Hence, acute exacerbation of chronic systolic CHF with last recorded LVEF 30% (as noted on 06/08/2022, 1:13pm TTE, CARDS Dr. Olman Collins) may be contributing to patient's acute hypoxic respiratory failure. Subsequently, I have ordered TTE for the 10/02/2024 am. In the interim, patient is NOT being started on lasix and is being held off his home-scheduled metoprolol succinate XL 50mg PO qam, given the potential for either/both medications to lower patient's BP below current BP 106/80 (10/01/2024, 6:01pm). 7. Acute hypercapnic respiratory failure with CO2 45 mmol/L (09/30/2024, 7:03am) and CO2 35 mmol/L (10/01/2024, 4:41am), PERSISTENT. Etiology of of acute hypercapnic respiratory failure remains unclear in this patient who is still hyperventilating at 29 breaths/minute (09/30/2024, 7:30am) to 34 breaths/minute (09/30/2024, 1:03pm) to 24 breaths/minute (10/01/2024, 8:00 am and 6:01pm). I will check repeat CO2 level in the 10/02/2024 am. In the interim, I ordered portable CXR (09/30/2024, 2:33pm) to check for evidence of COPD, bronchiectasis/fibrosis, and/or atelectasis, which can lead to hypercapnia, and none of which were observed on portable CXR (09/30/2024, 2:33pm). 8. Acute kidney injury with admission creatinine 2.20 mg/dL (09/29/2024, 3:38pm), PERSISTENT. cf., admission creatinine 2.20 mg/dL (09/29/2024, 3:38pm). cf., repeat creatinine 1.90 mg/dL (09/30/2024, 7:03am). cf., repeat creatinine 1.88 mg/dL (10/01/2024, 4:41am). cf., current creatinine 1.91 mg/dL (10/02/2024, 4:53am). cf., baseline creatinine range, 0.95 mg/dL (04/25/2022, 6:21am) to 1.37 mg/dL (07/04/2024, 7:12am). Etiology of acute kidney injury remains unclear, but may be due to patient's home-scheduled sacubitril 49mg - valsartan 51mg PO bid, lasix 40mg PO qam, spironolactone 25mg PO daily, and lisinopril 20mg PO daily given the potential for any/all of these agents to cause further renal embarrassment. Hence, I have opted to hold OFF patient's home-scheduled sacubitril 49mg - valsartan 51mg PO bid, lasix 40mg PO qam, spironolactone 25mg PO daily, and lisinopril 20mg PO daily, and I will check repeat creatinine level in the 10/03/2024 am. 9. Acute lactic acidosis with admission lactic acid #1 4.2 mmol/L (09/30/2024, 3:24pm), RESOLVED. cf., lactic acid #2 4.3 mmol/L (09/30/2024, 6:18pm). cf., lactic acid #3 3.6 mmol/L (09/30/2024, 8:00pm). cf., lactic acid #4 3.3 mmol/L (10/01/2024, 4:41am). cf., lactic acid #5 5.7 mmol/L (10/01/2024, 9:04am). cf., lactic acid #6 2.3 mmol/L (10/01/2024, 7:07pm). cf., lactic acid #7 1.4 mmol/L (10/02/2024, 4:53am). Etiology of acute lactic acidosis remains unclear, but is probably due to a combination of (a) acute dehydration from chronic ETOH-mediated diuresis and (b) ycklp-hj-ipogxet transaminitis, which in turn, is due to chronic alcoholic hepatitis. cf., AST 58 U/L, ALT 25 U/L, ALK PHOS 168 U/L (09/29/2024, 3:38pm). cf., AST 45 U/L, ALT 22 U/L, ALK PHOS 164 U/L (09/30/2024, 7:03am). cf., AST 41 U/L, ALT 18 U/L, ALK PHOS 153 U/L (10/01/2024, 4:41am). cf., baseline AST range, 18 - 33 U/L (10/22/2020 - 07/04/2024), ALT range, 12-38 U/L (10/22/2020 - 07/04/2024), ALK PHOS range, 110-124 U/L (03/09/2022 - 07/04/2024). To address (a), patient received 1 liter of 0.9% NS @ 999 mL/hr (09/29/2024, 6:16pm), followed by 1 liter of lactated Ring[place] @ 125 mL/hr (09/29/2024, 9:42pm) in [facility] ER. Patient is being held off further IV fluid rehydration therapy in order to avoid further cardio-pulmonary embarrassment. 10. Acute exacerbation of chronic systolic CHF with reduced LVEF 30%, normal RV systolic function, inability to assess LV diastolic function due to prior mitral valve repair (as reported on 06/08/2022 TTE, CARDS Dr. Olman Collins). s/p AICD. Hold off home-scheduled metoprolol succinate 50mg PO qam in order to avoid further cardio-pulmonary embarrassment. Hold OFF home-scheduled sacubitril 49mg - valsartan 51mg PO bid, lasix 40mg PO qam, spironolactone 25mg PO daily, and lisinopril 20mg PO daily, given the potential for any/all of these agents to cause further renal embarrassment. cf., admission creatinine 2.20 mg/dL (09/29/2024, 3:38pm). cf., repeat creatinine 1.90 mg/dL (09/30/2024, 7:03am). cf., repeat creatinine 1.88 mg/dL (10/01/2024, 4:41am). cf., current creatinine 1.91 mg/dL (10/02/2024, 4:53am). cf., baseline creatinine range, 0.95 mg/dL (04/25/2022, 6:21am) to 1.37 mg/dL (07/04/2024, 7:12am). I will check repeat creatinine level in the 10/03/2024 am. 11. Acute type II NSTEMI with troponin #1 21.8 pg/mL (, 3:38pm) and troponin #2 22.9 pg/mL (, 5:12pm). Etiology of nominally elevated troponin levels remains unclear, but is most probably due to demand ischemia, which in turn, is due to (a) acute hypoxic respiratory failure, which in turn, is due to (b) acute exacerbation of chronic systolic CHF with reduced LVEF 30%, normal RV systolic function, inability to assess LV diastolic function due to prior mitral valve repair (as reported on 06/08/2022 TTE, CARDS Dr. Olman Collins). Hence, I have opted to observe this laboratory anomaly at this time. 12. Disposition. Code status, FULL CODE @ home. ALS as required. Condition of patient remains tenuous, if not terminal, given the severity of patient's medical problems noted above. To this end, I have called and left 14 different messages on the answering machine of patient's daughter, Ms. Carla Tidwell ( ) from 09/30/2024, 8:31am through 10/02/2024, 8:20pm, and I have not received any callback from Ms. Tidwell. Unfortunately, I have no other contact phone number for Ms. Tidwell, and I have no other draftsperson with whom I can discuss patient's medical problems noted above. Admission and Anticipated Discharge Date Admission Date: September 29, 2024 Subjective Unavailable as patient remains lethargic, obtunded, and non-verbal. Review of Systems Constitutional: Unavailable as patient remains lethargic, obtunded, and non-verbal. Physical Exam Constitutional: General: Comfortable, lethargic, obtunded. Non-verbal with mouth hanging wide open on High Flow oxygen @ 40 L/min, FIO2 = 0.45 (10/01/2024, 6:01pm). O2 saturation 96% on High Flow oxygen @ 40 L/min, FIO2 = 0.40 (10/02/2024, 7:32am). HEENT: Normocephalic, atraumatic. Pupils equally round and reactive to light. No nystagmus, gaze paresis, anisocoria, miosis, mydriasis, hyphema, scleral injection, conjunctivitis, or pterygium. No otorrhea. No pharyngeal erythema, edema, or discharge. Neck: Supple, no stridor, bruit, goiter, or hepato-jugular reflux. Jugular venous pressure is estimated to be 3 cm above the sternal angle of [place], which in turn, is 5 cm above the level of the right atrium; with jugular venous pressure estimated to be 8 cm, then, there is no jugular venous distention on 10/01/2024. Lymphatics: No cervical (anterior/posterior), supraclavicular, infraclavicular, axillary, epitrochlear, or inguinal adenopathy. Chest: Symmetric rise and fall with respirations. Non-tender to palpation. Lungs: Clear to auscultation and percussion. No audible expiratory wheeze, egophony, pectoriloquy, increase in tactile fremitus, or fla tness/dullness to percussion at the bases. Heart: Increased rate. Regular rhythm. S1 and S2 noted. No S3 or S4 summation gallop. No tripartite friction rub. Grade II/ early systolic murmur @ LLSB without radiation to the carotids, axilla, or back, and which remains invariant in regards to the respiratory cycle. Abdomen: Soft, non-tender, non-distended. No rebound, guarding, Logan's sign, or organomegaly. Bowel sounds auscultated in all 4 quadrants. Extremities: No clubbing, cyanosis, or edema in upper extremities or lower extremities bilaterally. 2+ pedal pulses bilaterally. Skin: No decubitus ulcer or enanthem. Genito-urinary: No urethral discharge. + poole catheter with 0.54 mL/kg/hr urine output over the past 24 hours. Neurology: No myoclonus, tremors, or tics. Psychiatry: No homicidal ideation. No suicidal ideation. No flat affect; smiles appropriately. Results & Data Results & Data Vital Signs (Past 12 Hours) Vital Signs Temp Pulse Pulse Resp BP BP Pulse Ox 10/02/24 20:41 92 H 24 119/78 10/02/24 19:30 37.2 C 89 22 118/78 98 10/02/24 19:00 37.1 C 92 H 23 121/74 99 10/02/24 18:00 37.4 C 108 H 24 118/73 97 10/02/24 17:00 37.3 C 92 H 22 100 10/02/24 16:51 37.2 C 94 H 25 H 100 10/02/24 16:30 120/74 10/02/24 16:12 37.4 C 106 H 23 97 10/02/24 16:09 112 H 26 H 91/73 L 97 10/02/24 16:02 91/60 L 10/02/24 15:45 37.3 C 99 H 25 H 96 10/02/24 15:30 125/84 10/02/24 15:30 37.2 C 99 H 21 94 10/02/24 15:10 37.1 C 108 H 26 H 140/93 91 10/02/24 15:00 140/93 10/02/24 15:00 140/93 10/02/24 15:00 37.1 C 94 H 14 97 10/02/24 14:36 37.0 C 94 H 21 94 10/02/24 14:03 36.8 C 91 H 19 93 10/02/24 14:00 123/87 10/02/24 13:57 36.8 C 94 H 27 H 96 10/02/24 13:57 36.5 C 94 H 24 128/85 94 10/02/24 13:55 94 H 28 H 129/88 10/02/24 13:30 128/85 10/02/24 13:30 36.7 C 90 20 95 10/02/24 13:09 36.6 C 87 20 96 10/02/24 12:51 99 10/02/24 12:36 36.4 C L 92 H 20 97 10/02/24 12:30 114/84 10/02/24 12:18 36.3 C L 89 20 97 10/02/24 12:00 118/87 10/02/24 12:00 36.3 C L 83 18 100 10/02/24 11:33 36.1 C L 81 25 H 98 10/02/24 11:30 126/87 10/02/24 11:30 126/87 10/02/24 11:30 86 20 97 10/02/24 11:27 36.0 C L 81 24 97 10/02/24 11:06 23 97 10/02/24 11:00 126/85 10/02/24 10:57 81 20 98 10/02/24 10:39 79 18 96 10/02/24 10:30 131/92 10/02/24 10:15 77 18 98 10/02/24 10:03 77 19 98 10/02/24 10:00 125/86 10/02/24 09:45 76 23 98 10/02/24 09:36 75 19 95 10/02/24 09:30 117/90 10/02/24 09:18 76 20 95 O2 Del Method O2 Flow Rate FiO2 10/02/24 20:41 10/02/24 19:30 Oxymask 3 10/02/24 19:00 Oxymask 3 10/02/24 18:00 Oxymask 3 10/02/24 17:00 10/02/24 16:51 10/02/24 16:30 10/02/24 16:12 10/02/24 16:09 Oxymask 2 10/02/24 16:02 10/02/24 15:45 10/02/24 15:30 10/02/24 15:30 10/02/24 15:10 Oxymask 2 10/02/24 15:00 10/02/24 15:00 10/02/24 15:00 10/02/24 14:36 10/02/24 14:03 10/02/24 14:00 10/02/24 13:57 10/02/24 13:57 Nasal Cannula 2 10/02/24 13:55 10/02/24 13:30 10/02/24 13:30 10/02/24 13:09 10/02/24 12:51 Oxymask 4 10/02/24 12:36 10/02/24 12:30 10/02/24 12:18 10/02/24 12:00 10/02/24 12:00 10/02/24 11:33 10/02/24 11:30 10/02/24 11:30 10/02/24 11:30 Nasal Cannula, Oxymask 35 35 10/02/24 11:27 10/02/24 11:06 10/02/24 11:00 10/02/24 10:57 10/02/24 10:39 10/02/24 10:30 10/02/24 10:15 10/02/24 10:03 10/02/24 10:00 10/02/24 09:45 10/02/24 09:36 10/02/24 09:30 10/02/24 09:18 Laboratory Results Abnormal lab results 09/30/24 10/02/24 Range/Units 04:05 04:53 RBC 3.44 L (4.70-6.10) M/uL Hgb 12.2 L (14.0-18.0) g/dl Hct 36.7 L (42.0-52.0) % MCV 106.7 H (80.0-100.0) fL MCH 35.5 H (25.0-34.0) pg RDW Std Deviation 54.6 H (36.4-46.3) fL Neut # (Auto) 7.51 H (1.40-6.50) K/uL Lymph # (Auto) 0.93 L (1.20-3.40) K/uL BUN 32 H (6-23) mg/dl Creatinine 1.91 H (0.6-1.4) mg/dl Glucose 106 H (70-99(Fasting)) mg/dl Calcium 8.2 L (8.6-10.3) mg/dl U Lorazepam Cnf GC/MS 94 H (<50) ng/mL PG Care Time/CCT Total # of Minutes Spent Total Time Spent with Patient: Total time spent is greater than 50% in coordination of care (as documented) at patient's floor/unit and/or counseling patient: Coding Level of Care Code 67673 SUB INP/OBS CARE 3/50MIN Diagnoses Alcohol abuse F10.10 Electrolyte abnormality E87.8 Chronic systolic CHF (congestive heart failure) I50.22 Depression with anxiety F41.8 Hypertension I10 Acute alcohol intoxication delirium with moderate or severe use disorder F10.221
[2024-10-03 00:30] LABS: ANTI-Xa, UFH(UnfractionatedHep 0.64 IU/ml (0.3-0.7)
[2024-10-03 05:07] LABS: Hematocrit (blood only) 36.2 % (42.0-52.0); Hemoglobin 12.0 g/dl (14.0-18.0); Immature Granulocytes # (auto) 0.15 K/uL (0.01-0.20); Immature Granulocytes % (auto) 1.3 %; Mean Corpuscular Hemoglobin 34.8 pg (25.0-34.0); Mean Corpuscular Volume 104.9 fL (80.0-100.0); Platelet Count 184 K/uL (130-400); RDW Standard Deviation 53.6 fL (36.4-46.3); Red Blood Count 3.45 M/uL (4.70-6.10); White Blood Count 11.59 K/ul (4.8-10.8)
[2024-10-03 05:29] LABS: Anion Gap 8.0 (3-11); Blood Urea Nitrogen 34.0 mg/dl (6-23); Calcium 8.3 mg/dl (8.6-10.3); Carbon Dioxide 27.0 mmol/L (21-32); Chloride 99.0 mmol/L (98-107); Creatinine Clr Calc Pharmacy 47.7 ml/min; Glucose 113.0 mg/dl (70-99(Fasting)); Magnesium 2.2 mg/dl (1.7-2.4); Potassium 3.5 mmol/L (3.5-5.1); Sodium 134.0 mmol/L (136-145)
[2024-10-03] MEDS: POTASSIUM CHLORIDE 20 MEQ/15 ML UDC PO STA (06:51)
--- NOTE | 2024-10-03 09:03 | Critical Care Progress Note ---
Date of Service October 03, 2024 Assessment & Plan (1) Acute alcohol intoxication: Plan: Reason Critically Ill: 69-year-old male with acute agitated delirium PLAN: Neuro: Acute agitated delirium: Small improvement in last 24 hours - Off ketamine transition to Precedex - Given dose of olanzapine, recheck QTc it is now prolonged discontinuing additional antipsychotics ammonia level: Within normal limits Resp: Continuous end-tidal CO2 monitoring - Mild hypoxia requiring supplemental oxygen -Reviewed bilateral venous duplex findings: No evidence of acute DVT - DVT noted in right upper extremity started on heparin empirically CV: History nonischemic cardiomyopathy - Reinitiate oral metoprolol Fluids/Renal: Acute kidney injury: Improving -Serrano catheter Hypokalemia: Resolved Mild lactic acid acidosis: Resolved - Received 500 mg thiamine IVx3, now 100 mg daily Mixed metabolic acidosis: Lactic acid acidosis with metabolic alkalosis and very mild secondary respiratory alkalosis ID: Monitor fever curve GI/Nutrition: Mild transaminitis -Continue to monitor - Acute hepatitis panel: Hepatitis B and C: negative Course safe to be placed: Tolerating tube feedings Heme: Anemia - Appropriate reticulocytosis, appears to be anemia related to alcohol consumption, folate B12 within acceptable range DVT prophylaxis: Heparin infusion - Presumptive history of prior DVT given calcification of thrombus in mid right femoral vein: Review of chart demonstrates orthopedic injury history to that affected leg - Right upper extremity DVT, history of recent IV starts. Most consistent with provoked DVT, likely needs 3 months of anticoagulation Endocrine: ICU hyperglycemia protocol Vascular access: Peripheral IVs Code Status: Full code Disposition: ICU while requiring Precedex (2) Acute alcohol intoxication delirium with moderate or severe use disorder: (3) Electrolyte abnormality: (4) Fracture of right tibial plateau: (5) Chronic systolic CHF (congestive heart failure): (6) S/P ICD (internal cardiac defibrillator) procedure: (7) Nonischemic cardiomyopathy: Admission and Anticipated Discharge Date Admission Date: September 29, 2024 Supervising Physician Co-Signing Physician Notes I have personally spent 35 minutes of critical care time in the direct management of this patient. This is a life/limb threatening event. This includes time spent evaluating patient, direct bedside care, chart review, placing orders, interpretation of diagnostic studies, discussion with consultants, patient, and/or family members regarding treatment decisions, as well as other required patient management activities. This time is exclusive of all separately billable procedures, and teaching time and separate from and in addition to any other critical care service time. Subjective Reinitiated Precedex overnight for increasing agitation Physical Exam Physical Exam: General: Intermittently agitated intermittently able to follow simple commands Skin: Warm, dry, Head: Atraumatic Ears, nose, mouth and throat: airway patent Cardiovascular: Normal peripheral perfusion Respiratory: no respiratory distress Gastrointestinal: Non distended Musculoskeletal: No deformity Results & Data Results & Data Vital Signs (Past 12 Hours) Vital Signs Temp Pulse Resp BP Pulse Ox Pulse Ox O2 Del Method 10/03/24 08:33 77 20 92 Oxymask 10/03/24 08:19 76 20 111/83 10/03/24 08:15 77 21 111/83 96 10/03/24 08:11 36.5 C 10/03/24 08:06 97 10/03/24 07:33 76 20 99 10/03/24 07:32 105/71 10/03/24 07:21 76 10/03/24 07:15 82 21 98 10/03/24 07:12 78 21 99/63 L 97 10/03/24 06:00 79 21 107/82 97 Oxymask 10/03/24 05:00 36.5 C 78 17 107/83 96 Oxymask 10/03/24 04:00 37 C 78 24 118/72 98 Oxymask 10/03/24 03:00 80 126/96 96 Oxymask 10/03/24 02:00 37 C 81 21 113/81 95 Oxymask 10/03/24 01:50 84 24 121/79 95 Oxymask 10/03/24 00:24 96 H 10/03/24 00:00 82 30 H 126/75 98 Oxymask 10/02/24 23:00 37 C 84 21 96/74 L 99 Oxymask 10/02/24 22:00 37 C 87 21 117/73 98 Oxymask O2 Del Method O2 Flow Rate O2 Flow Rate 10/03/24 08:33 10/03/24 08:19 10/03/24 08:15 10/03/24 08:11 10/03/24 08:06 Oxymask 3 10/03/24 07:33 10/03/24 07:32 10/03/24 07:21 10/03/24 07:15 10/03/24 07:12 10/03/24 06:00 3 10/03/24 05:00 3 10/03/24 04:00 3 10/03/24 03:00 3 10/03/24 02:00 3 10/03/24 01:50 3 10/03/24 00:24 10/03/24 00:00 3 10/02/24 23:00 3 10/02/24 22:00 3 Critical Care Results & Data Vital Signs (Past 12 Hours) Vital Signs Temp Pulse Pulse Resp BP BP Pulse Ox 10/03/24 12:00 98/72 L 10/03/24 12:00 86 26 H 100 10/03/24 11:33 83 26 H 96 10/03/24 11:22 36.4 C L 81 20 112/80 97 10/03/24 11:16 112/80 10/03/24 11:06 78 20 103/72 95 10/03/24 11:01 79 20 100/63 95 10/03/24 11:00 100/63 10/03/24 10:52 83 20 119/78 100 10/03/24 10:51 82 29 H 99 10/03/24 10:50 119/78 10/03/24 10:45 79 20 97 10/03/24 10:33 83 35 H 86 L 10/03/24 10:04 106/64 10/03/24 10:00 90/59 L 10/03/24 09:54 79 20 94 10/03/24 08:33 77 20 92 10/03/24 08:19 76 20 111/83 10/03/24 08:15 77 21 111/83 96 10/03/24 08:11 36.5 C 10/03/24 08:06 10/03/24 07:33 76 20 99 10/03/24 07:32 105/71 10/03/24 07:30 10/03/24 07:21 76 10/03/24 07:15 82 21 98 10/03/24 07:12 78 21 99/63 L 97 10/03/24 06:00 79 21 107/82 97 10/03/24 05:00 36.5 C 78 17 107/83 96 10/03/24 04:00 37 C 78 24 118/72 98 10/03/24 03:00 80 126/96 96 10/03/24 02:00 37 C 81 21 113/81 95 10/03/24 01:50 84 24 121/79 95 Pulse Ox O2 Del Method O2 Del Method O2 Flow Rate O2 Flow Rate 10/03/24 12:00 10/03/24 12:00 10/03/24 11:33 10/03/24 11:22 Oxymask 1 10/03/24 11:16 10/03/24 11:06 Nasal Cannula 1 10/03/24 11:01 Oxymask 1 10/03/24 11:00 10/03/24 10:52 Oxymask 1 10/03/24 10:51 10/03/24 10:50 10/03/24 10:45 10/03/24 10:33 10/03/24 10:04 10/03/24 10:00 10/03/24 09:54 Oxymask 1 10/03/24 08:33 Oxymask 10/03/24 08:19 10/03/24 08:15 10/03/24 08:11 10/03/24 08:06 97 Oxymask 3 10/03/24 07:33 10/03/24 07:32 10/03/24 07:30 Oxymask 10/03/24 07:21 10/03/24 07:15 10/03/24 07:12 10/03/24 06:00 Oxymask 3 10/03/24 05:00 Oxymask 3 10/03/24 04:00 Oxymask 3 10/03/24 03:00 Oxymask 3 10/03/24 02:00 Oxymask 3 10/03/24 01:50 Oxymask 3 Lab & Micro Results (Past 24 Hours) RBC 3.45 M/uL (4.70-6.10) L 10/03/24 WBC 11.59 K/ul (4.8-10.8) H 10/03/24 Hgb 12.0 g/dl (14.0-18.0) L 10/03/24 Hct 36.2 % (42.0-52.0) L 10/03/24 MCV 104.9 fL (80.0-100.0) H 10/03/24 MCH 34.8 pg (25.0-34.0) H 10/03/24 MCHC 33.1 g/dL (32.0-36.0) 10/03/24 RDW Standard Deviation 53.6 fL (36.4-46.3) H 10/03/24 RDW Coefficient of Variation 13.9 % (11.5-14.5) 10/03/24 Plt Count 184 K/uL (130-400) 10/03/24 MPV 10.8 fL (9.4-12.4) 10/03/24 Nucleated Red Blood Cells % (auto) 0.2 % 10/03 Nucleated RBC Absolute Count (auto) 0.02 K/uL (0.00-0.12) 0 10/03/24 Neutrophils (%) (Auto) 77.5 % 10/03/24 Lymphocytes (%) (Auto) 10.4 % 10/03/24 Monocytes # (Auto) 1.09 K/uL (0.11-0.59) H 10/03/24 Eosinophils # (Auto) 0.13 K/uL (0.00-0.50) 10/03/24 Immature Granulocyte % (Auto) 1.3 % 10/03/24 Neutrophils # (Auto) 8.97 K/uL (1.40-6.50) H 10/03/24 Lymphocytes # (Auto) 1.21 K/uL (1.20-3.40) 10/03/24 Monocytes # (Auto) 1.09 K/uL (0.11-0.59) H 10/03/24 Eosinophils # (Auto) 0.13 K/uL (0.00-0.50) 10/03/24 Basophils # (Auto) 0.04 K/uL (0.00-0.20) 10/03/24 Immature Granulocyte # (Auto) 0.15 K/uL (0.01-0.20) 5 Na 134 mmol/L (136-145) L 10/03/24 K 3.5 mmol/L (3.5-5.1) 10/03/24 Cl 99 mmol/L (98-107) 10/03/24 CO2 27 mmol/L (21-32) 10/03/24 Anion Gap 8 (3-11) 10/03/24 BUN 34 mg/dl (6-23) H 10/03/24 Creatinine 1.58 mg/dl (0.6-1.4) H 10/03/24 BUN/Creatinine Ratio 21.5 (10-20) H 10/03/24 Glu 113 mg/dl (70-99(Fasting)) H 10/03/24 Ca 8.3 mg/dl (8.6-10.3) L 10/03/24 Phosphorus Level 2.9 mg/dl (2.5-4.9) 10/03/24 Mg 2.2 mg/dl (1.7-2.4) 10/03/24 04:27 Calcium Level 8.3 mg/dl (8.6-10.3) L 10/03/24 04:27 Prothromb Time International Ratio 1.1 (0.9-1.1) 10/02/24 16:3 9 Diagnostic Findings (Past 24 Hours) Venous Doppler Study 10/02/24 09:33 ULTRASOUND BILATERAL UPPER EXTREMITY VENOUS CLINICAL HISTORY: Right arm swelling. COMPARISON STUDY: No priors. TECHNIQUE: Real-time, grayscale, and color Doppler sonography of the deep veins of the right upper extremity is performed. Compression and augmentation were utilized. Evaluation of the left upper extremity was attempted, and the jugular, subclavian, and cephalic veins were assessed. The patient would not tolerate further imaging. FINDINGS: Right upper extremity: There is a short segment of nearly occlusive deep venous thrombosis seen distally within one of the brachial veins which extends approximately 3.3 cm in length. The brachial veins are otherwise patent. The right internal jugular and axillary veins are patent and normally compressible. Normal venous waveforms and augmentation are seen within the right subclavian vein. The cephalic vein is patent. The visualized radial and ulnar veins are patent. There is occlusive superficial venous thrombus seen throughout the right basilic vein extending from the upper extremity with the forearm. Left upper extremity: The left internal jugular vein is patent and normally compressible. The left cephalic vein is clear. Imaged portions of the left subclavian vein are patent. IMPRESSION: 1. There is a short segment of occlusive deep venous thrombosis within a branch of the right brachial vein as above. 2. There is extensive occlusive superficial venous thrombus throughout the right basilic vein. 3. The imaged veins of the left upper extremity appear clear. Note that the left upper extremity was only partially evaluated. ACT 112: Negative or not required by law. Electronically signed by: Shen Aguilar M.D. 10/02/2024 3:55 PM I & O Totals 24 Hours 10/02/24 10/03/24 10/04/24 06:59 06:59 06:59 Intake Total 1235.258 / 1235.258 818.307 / 1053.930 689.278 / 689.278 Output Total 1010 / 1010 1076 / 1076 266 / 266 Balance 225.258 / 225.258 -257.693 / -22.070 423.278 / 423.278 Cumulative 09/29/24 14:46 thru 10/03/24 13:09 Intake Total 6600.6445 Output Total 3488 Balance 3112.6445 RT Ventilator Mngmt (Last Documented) Ventilator Ordered Settings Respiratory Rate 26 10/03/24 12:00 Fraction of Inspired Oxygen 35 10/02/24 11:30 Ventilator - PT Measurements Respiratory Rate 26 End-Tidal CO2 22 Coding Level of Care Code 49834 CRITICAL CARE 1ST 30-74M Diagnoses Acute alcoholic intoxication with delirium F10.921 Complication of substance-induced condition: with delirium Acute alcohol intoxication delirium with moderate or severe use disorder F10.221 Electrolyte abnormality E87.8 Closed fracture of right tibial plateau, sequela S82.141S Encounter type: sequela Fracture type: closed Chronic systolic CHF (congestive heart failure) I50.22 S/P ICD (internal cardiac defibrillator) procedure Z95.810 Nonischemic cardiomyopathy I42.8 (1) Acute alcohol intoxication Complication of substance-induced condition: with delirium Qualified Code(s): F10.921 - Alcohol use, unspecified with intoxication delirium (4) Fracture of right tibial plateau Encounter type: sequela Fracture type: closed Qualified Code(s): S82.141S - Displaced bicondylar fracture of right tibia, sequela
[2024-10-03] MEDS ORDERED: KETAMINE HCL 10MG/ML SYR IV STA (10:32)
[2024-10-03 10:36] LABS: ANTI-Xa, UFH(UnfractionatedHep 0.95 IU/ml (0.3-0.7)
[2024-10-03] MEDS: SODIUM CHLORIDE 0.9% IV ONE ×2 (10:51→18:18)
[2024-10-03] MEDS: KETAMINE HCL IV ONE ×2 (10:51→18:18)
--- NOTE | 2024-10-03 14:37 | Electrocardiogram Report ---
Test Reason : Blood Pressure : */* mmHG Vent. Rate : 78 BPM Atrial Rate : 78 BPM P-R Int : 170 ms QRS Dur : 102 ms QT Int : 478 ms P-R-T Axes : 61 43 207 degrees QTcB Int : 544 ms Normal sinus rhythm with sinus arrhythmia Prolonged QT Abnormal ECG When compared with ECG of 04-Jul-2024 00:55, ST now depressed in Anterolateral leads T wave inversion more evident in Inferior leads T wave inversion now evident in Anterolateral leads QT has lengthened Confirmed by Miguel Villalobos ([id number]) on 10/03/2024 2:37:21 PM Referred By: REFERRED SELF Confirmed By: Miguel Villalobos
[2024-10-03] MEDS: POTASSIUM CHLORIDE 20 MEQ/15 ML UDC PO SCH (16:13)
[2024-10-03 18:07] LABS: ANTI-Xa, UFH(UnfractionatedHep 0.70 IU/ml (0.3-0.7)
[2024-10-03] MEDS: KETAMINE HCL 10MG/ML SYR IV STA (18:18)
[2024-10-03] MEDS: ACETAMINOPHEN SUSP 325 MG/10.15 ML UDC PO PRN (20:34)
[2024-10-03] MEDS ORDERED: REMOVE LIDODERM PATCH SCH (21:00)
[2024-10-03] MEDS: LIDOCAINE 5% 1 PATCH TD STA (21:02)
[2024-10-03] MEDS ORDERED: Nursing to Pharmacy Communication SCH (21:45)
[2024-10-03] MEDS ORDERED: PHENobarbitaL sodium 65 MG in SYRINGE 0 ML IV ONE (22:01)
--- NOTE | 2024-10-03 22:22 | Hospitalist Progress Note ---
Date of Service October 03, 2024 Assessment & Plan (1) Alcohol abuse: (2) Electrolyte abnormality: (3) Chronic systolic CHF (congestive heart failure): (4) Depression with anxiety: (5) Hypertension: (6) Acute alcohol intoxication delirium with moderate or severe use disorder: Plan 69 years old male with PMH of FULL CODE @ home, HTN, non-ischemic cardiomyopathy with chronic systolic CHF with LVEF 30%, normal RV systolic function, and indeterminate LV diastolic function, s/p AICD, and ongoing EtOH abuse who presented to [facility] ER on 09/29/2024 with comsplaint of abdominal distention, generally overall feeling unwell. On exam he did not appear anxious, no tremors. No significant ascites appreciated during my physical exam. No RUQ tenderness. Only trace bilateral LE edema. Patient was subsequently admitted to the inpatient hospitalist service @ [facility] on 09/29/2024 with the following diagnoses: 1. Acute ETOH intoxication with ETOH 143.3 mg/dL (09/29/2024, 5:12pm). 2. Acute ETOH withdrawal with last swig of whisky (09/29/2024, 6:00am). 3. Acute hypokalemia with admission K 2.4 mmol/L (09/29/2024, 3:38pm). 4. Acute hypomagnesemia with admission Mg 1.6 mg/dL (09/29/2024, 3:38pm). 5. Acute hypophosphatemia with admission PO4 2.0 mg/dL (, 9:14pm). 6. Acute hypoxic respiratory failure with O2 saturation 71% on room air (09/30/2024, 2:10am), now with O2 saturation 88-89% on 10 liters/minute O2 via oxymask (09/30/2024, 7:30am). 7. Acute hypercapnic respiratory failure with CO2 45 mmol/L (09/30/2024, 7:03am). 8. Acute kidney injury with admission creatinine 2.20 mg/dL (09/29/2024, 3:38pm). 9. Acute lactic acidosis with admission lactic acid #1 4.2 mmol/L (09/30/2024, 3:24pm). 10.Acute exacerbation of chronic systolic CHF with reduced LVEF 30%, normal RV systolic function, inability to assess LV diastolic function due to prior mitral valve repair (as reported on 06/08/2022 TTE, CARDS Dr. Olman Collins). 11.Acute type II NSTEMI with troponin #1 21.8 pg/mL (, 3:38pm) and troponin #2 22.9 pg/mL (, 5:12pm). The following medical issues are being addressed on 10/03/2024: 1. Acute ETOH intoxication with ETOH 143.3 mg/dL (09/29/2024, 5:12pm). Continue ETOH abstinence while in [facility]. 2. Acute ETOH withdrawal with last swig of whisky (09/29/2024, 6:00am). Continue telemetry, CIWA scale scoring with ativan prn, MVI, thiamine, and folate supplementation. 3. Acute hypokalemia with admission K 2.4 mmol/L (09/29/2024, 3:38pm). PERSISTENT s/p supplementation with KCl 40meq PO x 1 dose (09/29/2024, 6:15pm) with post-supplement K 3.2 mmol/L (09/30/2024, 7:03am) and current K 3.0 mmol/L (09/30/2024, 11:09am). Patient subsequently received KCl 10meq IV q1h x 6 bags (09/30/2024, 12:43pm, 12:44pm, 1:34pm). PERSISTENT with post-supplement K 3.4 mmol/L (10/01/2024, 8:43am). Patient subsequently received KCl 10meq IVv q1h x 4 bags (10/01/2024, 6:47pm). Acute hypokalemia RESOLVED with post-supplement K 3.8 mmol/L (10/02/2024, 4:53am) and current K 3.5 mmol/L (10/03/2024, 4:27am). I will check repeat K level in the 10/04/2024 am. Of note, etiology of acute hypokalemia was most probably due to chronic ETOH-mediated berta-uresis. 4. Acute hypomagnesemia with admission Mg 1.6 mg/dL (09/29/2024, 3:38pm). RESOLVED s/p supplement with magnesium sulfate 1g IV x 2 doses (09/29/2024, 6:13pm, 9:42pm) with post-supplement Mg 2.0 mg/dL (09/30/2024, 7:03am), repeat Mg 1.9 mg/dL (10/01/2024, 4:41am), repeat Mg 1.9 mg/dL (10/02/2024, 4:53am), and current Mg 2.2 mg/dL (10/03/2024, 4:27am). I will check repeat Mg level in the 10/04/2024 am. Of note, etiology of acute hypomagnesemia was most probably due to chronic ETOH-mediated magne-uresis. 5. Acute hypophosphatemia with admission PO4 2.0 mg/dL (, 9:14pm). RESOLVED. No KPO4 supplement given repeat, normal PO4 4.0 mg/dL (09/30/2024, 3:24pm), repeat PO4 3.5 mg/dL (10/01/2024, 4:41am), repeat PO4 4.0 mg/dL (10/02/2024, 4:53am), and current PO4 2.9 mg/dL (10/03/2024, 4:27am). Check repeat PO4 level in the 10/04/2024 am, and supplement to attain/maintain PO4 level > 2.5 mg/dL. 6. Acute hypoxic respiratory failure with O2 saturation 71% on room air (09/30/2024, 2:10am), followed by O2 saturation 88-89% on 10 liters/minute O2 via oxymask (09/30/2024, 7:30am), followed by O2 saturation 94% on High Flow oxygen @ 40 L/min, FIO2 = 0.45 (10/01/2024, 6:01pm), followed by O2 saturation 96% on High Flow oxygen @ 40 L/min, FIO2 = 0.40 (10/02/2024, 7:32am). RESOLVING with O2 saturation 99% on 4 L/min O2 via NC (10/02/2024, 12:51pm), O2 saturation 92% on 3 L/min O2 via NC (10/03/2024, 6:00am). Etiology of acute hypoxic respiratory failure remains unclear as patient remains afebrile with WBC remaining normal (cf., admission WBC 5.56, N56 L30 M12 E1 B1 (09/29/2024, 3:38pm) and repeat WBC 9.38, no differential (09/30/2024, 7:03am) and portable CXR (09/29/2024) negative for infiltrate/consolidation, effusion, cardiomegaly, pulmonary vascular congestion, or pneumothorax (by my review). Subsequently, I ordered procalcitonin (09/30/2024, 2:32pm), lactic acid (09/30/2024, 2:32pm), and portable CXR (09/30/2024, 2:33pm). Subsequently, procalcitonin was normal @ 0.10 ng/mL (09/30/2024, 3:24pm), lactic acid was elevated at 4.2 mmol/L (09/30/2024, 3:24pm), and portable CXR (09/30/2024, 2:33pm) revealed "Stable cardiac valve repair and pacemaker. Stable cardiomegaly with increased pulmonary vascular congestion. There is increased patchy opacity throughout the right lung and at the left lung base. No pleural effusion or pneumothorax." Hence, acute exacerbation of chronic systolic CHF with last recorded LVEF 30% (as noted on 06/08/2022, 1:13pm TTE, CARDS Dr. Olman Collins) may be contributing to patient's acute hypoxic respiratory failure. Subsequently, I have ordered TTE for the 10/02/2024 am. In the interim, patient is NOT being started on lasix and is being held off his home-scheduled metoprolol succinate XL 50mg PO qam, given the potential for either/both medications to lower patient's BP below current BP 123/84 (10/03/2024, 9:01pm). 7. Acute hypercapnic respiratory failure with CO2 45 mmol/L (09/30/2024, 7:03am) and CO2 35 mmol/L (10/01/2024, 4:41am), PERSISTENT. Etiology of of acute hypercapnic respiratory failure remains unclear in this patient who is still hyperventilating at 29 breaths/minute (09/30/2024, 7:30am) to 34 breaths/minute (09/30/2024, 1:03pm) to 24 breaths/minute (10/01/2024, 8:00 am and 6:01pm). I will check repeat CO2 level in the 10/02/2024 am. In the interim, I ordered portable CXR (09/30/2024, 2:33pm) to check for evidence of COPD, bronchiectasis/fibrosis, and/or atelectasis, which can lead to hypercapnia, and none of which were observed on portable CXR (09/30/2024, 2:33pm). 8. Acute kidney injury with admission creatinine 2.20 mg/dL (09/29/2024, 3:38pm), RESOLVING. cf., admission creatinine 2.20 mg/dL (09/29/2024, 3:38pm). cf., repeat creatinine 1.90 mg/dL (09/30/2024, 7:03am). cf., repeat creatinine 1.88 mg/dL (10/01/2024, 4:41am). cf., repeat creatinine 1.91 mg/dL (10/02/2024, 4:53am). cf., current creatinine 1.58 mg/dL (10/03/2024, 4:27am). cf., baseline creatinine range, 0.95 mg/dL (04/25/2022, 6:21am) to 1.37 mg/dL (07/04/2024, 7:12am). Etiology of acute kidney injury remains unclear, but may be due to patient's home-scheduled sacubitril 49mg - valsartan 51mg PO bid, lasix 40mg PO qam, spironolactone 25mg PO daily, and lisinopril 20mg PO daily given the potential for any/all of these agents to cause further renal embarrassment. Hence, I have opted to hold OFF patient's home-scheduled sacubitril 49mg - valsartan 51mg PO bid, lasix 40mg PO qam, spironolactone 25mg PO daily, and lisinopril 20mg PO daily, and I will check repeat creatinine level in the 10/04/2024 am. 9. Acute lactic acidosis with admission lactic acid #1 4.2 mmol/L (09/30/2024, 3:24pm), RESOLVED. cf., lactic acid #2 4.3 mmol/L (09/30/2024, 6:18pm). cf., lactic acid #3 3.6 mmol/L (09/30/2024, 8:00pm). cf., lactic acid #4 3.3 mmol/L (10/01/2024, 4:41am). cf., lactic acid #5 5.7 mmol/L (10/01/2024, 9:04am). cf., lactic acid #6 2.3 mmol/L (10/01/2024, 7:07pm). cf., lactic acid #7 1.4 mmol/L (10/02/2024, 4:53am). cf., lactic acid #8 2.9 mmol/L (10/03/2024, 9:38am). Etiology of acute lactic acidosis remains unclear, but is probably due to a combination of (a) acute dehydration from chronic ETOH-mediated diuresis and (b) goyxs-ov-uimfniv transaminitis, which in turn, is due to chronic alcoholic hepatitis. I will check repeat lactic acid level in the 10/07/2024 am. cf., AST 58 U/L, ALT 25 U/L, ALK PHOS 168 U/L (09/29/2024, 3:38pm). cf., AST 45 U/L, ALT 22 U/L, ALK PHOS 164 U/L (09/30/2024, 7:03am). cf., AST 41 U/L, ALT 18 U/L, ALK PHOS 153 U/L (10/01/2024, 4:41am). cf., baseline AST range, 18 - 33 U/L (10/22/2020 - 07/04/2024), ALT range, 12-38 U/L (10/22/2020 - 07/04/2024), ALK PHOS range, 110-124 U/L (03/09/2022 - 07/04/2024). To address (a), patient received 1 liter of 0.9% NS @ 999 mL/hr (09/29/2024, 6:16pm), followed by 1 liter of lactated Ringers @ 125 mL/hr (09/29/2024, 9:42pm) in [facility] ER. Patient is being held off further IV fluid rehydration therapy in order to avoid further cardio-pulmonary embarrassment. 10. Acute exacerbation of chronic systolic CHF with reduced LVEF 30%, normal RV systolic function, inability to assess LV diastolic function due to prior mitral valve repair (as reported on 06/08/2022 TTE, CARDS Dr. Olman Collins). s/p AICD. Hold off home-scheduled metoprolol succinate 50mg PO qam in order to avoid further cardio-pulmonary embarrassment. Hold OFF home-scheduled sacubitril 49mg - valsartan 51mg PO bid, lasix 40mg PO qam, spironolactone 25mg PO daily, and lisinopril 20mg PO daily, given the potential for any/all of these agents to cause further renal embarrassment. cf., admission creatinine 2.20 mg/dL (09/29/2024, 3:38pm). cf., repeat creatinine 1.90 mg/dL (09/30/2024, 7:03am). cf., repeat creatinine 1.88 mg/dL (10/01/2024, 4:41am). cf., repeat creatinine 1.91 mg/dL (10/02/2024, 4:53am). cf., current creatinine 1.58 mg/dL (10/03/2024, 4:27am). cf., baseline creatinine range, 0.95 mg/dL (04/25/2022, 6:21am) to 1.37 mg/dL (07/04/2024, 7:12am). I will check repeat creatinine level in the 10/04/2024 am. 11. Acute type II NSTEMI with troponin #1 21.8 pg/mL (, 3:38pm) and troponin #2 22.9 pg/mL (, 5:12pm). Etiology of nominally elevated troponin levels remains unclear, but is most probably due to demand ischemia, which in turn, is due to (a) acute hypoxic respiratory failure, which in turn, is due to (b) acute exacerbation of chronic systolic CHF with reduced LVEF 30%, normal RV systolic function, inability to assess LV diastolic function due to prior mitral valve repair (as reported on 06/08/2022 TTE, CARDS Dr. Olman Collins). Hence, I have opted to observe this laboratory anomaly at this time. 12. Disposition. Code status, FULL CODE @ home. ALS as required. Condition of patient remains tenuous, if not terminal, given the severity of patient's medical problems noted above. To this end, I have called and left 16 different messages on the answering machine of patient's daughter, Ms. Carla Tidwell ( ) from 09/30/2024, 8:31am through 10/03/2024, 10:21pm, and I have not received any callback from Ms. Tidwell. Unfortunately, I have no other contact phone number for Ms. Tidwell, and I have no other contact center associate with whom I can discuss patient's medical problems noted above. Admission and Anticipated Discharge Date Admission Date: September 29, 2024 Subjective Unavailable as patient remains lethargic, obtunded, and non-verbal. Review of Systems Constitutional: Unavailable as patient remains lethargic, obtunded, and non-verbal. Physical Exam Constitutional: General: Comfortable, lethargic, obtunded. Non-verbal with mouth hanging wide open on 4 L/min O2 via nasal cannula and O2 saturation 99% (10/02/2024, 12:51pm); on 3 L/min O2 via nasal cannula and O2 saturation 92% (10/03/2024, 6:00am). HEENT: Normocephalic, atraumatic. Pupils equally round and reactive to light. No nystagmus, gaze paresis, anisocoria, miosis, mydriasis, hyphema, scleral injection, conjunctivitis, or pterygium. No otorrhea. No pharyngeal erythema, edema, or discharge. Neck: Supple, no stridor, bruit, goiter, or hepato-jugular reflux. Jugular venous pressure is estimated to be 3 cm above the sternal angle of [place], which in turn, is 5 cm above the level of the right atrium; with jugular venous pressure estimated to be 8 cm, then, there is no jugular venous distention on 10/03/2024. Lymphatics: No cervical (anterior/posterior), supraclavicular, infraclavicular, axillary, epitrochlear, or inguinal adenopathy. Chest: Symmetric rise and fall with respirations. Non-tender to palpation. Lungs: Clear to auscultation and percussion. No audible expiratory wheeze, egophony, pectoriloquy, increase in tactile fremitus, or flatness/dullness to percussion at the bases. Heart: Increased rate. Regular rhythm. S1 and S2 noted. No S3 or S4 summation gallop. No tripartite friction rub. Grade II/ early systolic murmur @ LLSB without radiation to the carotids, axilla, or back, and which remains invariant in regards to the respiratory cycle. Abdomen: Soft, non-tender, non-distended. No rebound, guarding, Logan's sign, or organomegaly. Bowel sounds auscultated in all 4 quadrants. Extremities: No clubbing, cyanosis, or edema in upper extremities or lower extremities bilaterally. 2+ pedal pulses bilaterally. Skin: No decubitus ulcer or enanthem. Genito-urinary: No urethral discharge. + poole catheter with 1,040 mL (10/02/2024, 10:13pm - 10/03/2024, 10:13pm). Neurology: No myoclonus, tremors, or tics. Psychiatry: No homicidal ideation. No suicidal ideation. No flat affect; smiles appropriately. Results & Data Results & Data Vital Signs (Past 12 Hours) Vital Signs Temp Pulse Pulse Resp BP BP Pulse Ox 10/03/24 21:01 86 21 123/84 10/03/24 21:00 87 21 123/84 96 10/03/24 20:00 36.3 C L 89 34 H 113/74 100 10/03/24 19:30 10/03/24 19:00 76 31 H 111/70 97 10/03/24 18:31 75 24 97/65 L 93 10/03/24 18:25 97/65 L 10/03/24 18:23 73 20 108/65 93 10/03/24 18:21 73 21 92 10/03/24 18:20 108/65 10/03/24 18:18 73 26 H 94 10/03/24 18:18 73 22 94/61 L 92 10/03/24 18:10 94/61 L 10/03/24 18:06 85/60 L 10/03/24 18:05 71 10/03/24 18:03 71 22 91 10/03/24 18:00 90/58 L 10/03/24 17:51 72 23 91 10/03/24 17:03 73 19 99 10/03/24 17:00 101/76 10/03/24 16:54 75 23 100 10/03/24 16:42 36.4 C L 10/03/24 16:13 124/90 10/03/24 16:12 79 22 97 10/03/24 16:09 82 22 97 10/03/24 16:06 134/85 10/03/24 16:06 83 26 H 91 10/03/24 15:09 79 21 120/82 96 10/03/24 14:21 77 21 94 10/03/24 14:12 96/58 L 10/03/24 14:12 96/58 L 10/03/24 14:10 83/57 L 10/03/24 14:01 90/52 L 10/03/24 13:54 77 22 100 10/03/24 13:06 84 20 98 10/03/24 13:00 116/92 10/03/24 13:00 116/92 10/03/24 12:45 86 26 H 99 10/03/24 12:00 98/72 L 10/03/24 12:00 98/72 L 10/03/24 12:00 86 26 H 100 10/03/24 11:33 83 26 H 96 10/03/24 11:22 36.4 C L 81 20 112/80 97 10/03/24 11:16 112/80 10/03/24 11:06 78 20 103/72 95 10/03/24 11:01 79 20 100/63 95 10/03/24 11:00 100/63 10/03/24 10:52 83 20 119/78 100 10/03/24 10:51 82 29 H 99 10/03/24 10:50 119/78 07/03/25 10:45 79 20 97 10/03/24 10:33 83 35 H 86 L O2 Del Method O2 Flow Rate 10/03/24 21:01 10/03/24 21:00 Room Air 10/03/24 20:00 Room Air 10/03/24 19:30 Room Air 10/03/24 19:00 Room Air 10/03/24 18:31 Room Air 10/03/24 18:25 10/03/24 18:23 Room Air 10/03/24 18:21 10/03/24 18:20 10/03/24 18:18 10/03/24 18:18 Room Air 10/03/24 18:10 10/03/24 18:06 10/03/24 18:05 10/03/24 18:03 10/03/24 18:00 10/03/24 17:51 10/03/24 17:03 10/03/24 17:00 10/03/24 16:54 10/03/24 16:42 10/03/24 16:13 10/03/24 16:12 10/03/24 16:09 10/03/24 16:06 10/03/24 16:06 10/03/24 15:09 10/03/24 14:21 10/03/24 14:12 10/03/24 14:12 10/03/24 14:10 10/03/24 14:01 10/03/24 13:54 10/03/24 13:06 10/03/24 13:00 10/03/24 13:00 10/03/24 12:45 10/03/24 12:00 10/03/24 12:00 10/03/24 12:00 10/03/24 11:33 10/03/24 11:22 Oxymask 1 10/03/24 11:16 10/03/24 11:06 Nasal Cannula 1 10/03/24 11:01 Oxymask 1 10/03/24 11:00 10/03/24 10:52 Oxymask 1 10/03/24 10:51 10/03/24 10:50 10/03/24 10:45 10/03/24 10:33 Laboratory Results Abnormal lab results 10/03/24 10/03/24 Range/Units 04:27 09:38 WBC 11.59 H (4.8-10.8) K/ul RBC 3.45 L (4.70-6.10) M/uL Hgb 12.0 L (14.0-18.0) g/dl Hct 36.2 L (42.0-52.0) % MCV 104.9 H (80.0-100.0) fL MCH 34.8 H (25.0-34.0) pg RDW Std Deviation 53.6 H (36.4-46.3) fL Neut # (Auto) 8.97 H (1.40-6.50) K/uL [place] # (Auto) 1.09 H (0.11-0.59) K/uL Heparin Anti-Xa, Unfract 0.95 H* (0.3-0.7) IU/ml Sodium 134 L (136-145) mmol/L BUN 34 H (6-23) mg/dl Creatinine 1.58 H D (0.6-1.4) mg/dl BUN/Creatinine Ratio 21.5 H (10-20) Glucose 113 H (70-99(Fasting)) mg/dl Lactate 2.9 H* (0.4-2.0) mmol/L Calcium 8.3 L (8.6-10.3) mg/dl Procalcitonin 1.00 H (0-0.5) ng/ml PG Care Time/CCT Total # of Minutes Spent Total Time Spent with Patient: Total time spent is greater than 50% in coordination of care (as documented) at patient's floor/unit and/or counseling patient: Coding Level of Care Code 37220 SUB INP/OBS CARE 2/35MIN Diagnoses Alcohol abuse F10.10 Electrolyte abnormality E87.8 Chronic systolic CHF (congestive heart failure) I50.22 Depression with anxiety F41.8 Hypertension I10 Acute alcohol intoxication delirium with moderate or severe use disorder F10.221
[2024-10-04 04:59] LABS: Hematocrit (blood only) 33.9 % (42.0-52.0); Hemoglobin 11.7 g/dl (14.0-18.0); Immature Granulocytes # (auto) 0.17 K/uL (0.01-0.20); Immature Granulocytes % (auto) 1.9 %; Mean Corpuscular Hemoglobin 36.2 pg (25.0-34.0); Mean Corpuscular Volume 105.0 fL (80.0-100.0); Platelet Count 193 K/uL (130-400); RDW Standard Deviation 53.8 fL (36.4-46.3); Red Blood Count 3.23 M/uL (4.70-6.10); White Blood Count 9.06 K/ul (4.8-10.8)
[2024-10-04 05:16] LABS: Anion Gap 7.0 (3-11); Blood Urea Nitrogen 31.0 mg/dl (6-23); Calcium 8.4 mg/dl (8.6-10.3); Carbon Dioxide 23.0 mmol/L (21-32); Chloride 105.0 mmol/L (98-107); Creatinine Clr Calc Pharmacy 60.7 ml/min; Glucose 147.0 mg/dl (70-99(Fasting)); Magnesium 2.0 mg/dl (1.7-2.4); Potassium 3.8 mmol/L (3.5-5.1); Sodium 135.0 mmol/L (136-145)
[2024-10-04] MEDS ORDERED: POTASSIUM PHOS 3 MMOL/1 ML INFUSION IV STA ×2 (05:22→08:09)
[2024-10-04 05:43] LABS: ANTI-Xa, UFH(UnfractionatedHep 0.50 IU/ml (0.3-0.7)
[2024-10-04] MEDS: POTASSIUM PHOSPHATE 12 MMOL in SODIUM CHLORIDE 0.9% 250 ML IV ONE (06:30)
--- NOTE | 2024-10-04 07:45 | Critical Care Progress Note ---
Date of Service October 04, 2024 Assessment & Plan (1) Acute alcohol intoxication: Plan: Reason Critically Ill: 69-year-old male with acute agitated delirium PLAN: Neuro: Acute agitated delirium: Small improvement in last 24 hours - Off ketamine transition to Precedex, attempting to wean Precedex - Had received both Haldol and olanzapine during the course of his hospital admission complicated by prolonged QT ammonia level: Within normal limits Resp: Continuous end-tidal CO2 monitoring - Mild hypoxia requiring supplemental oxygen: Improved -Reviewed bilateral venous duplex findings: No evidence of acute DVT - DVT noted in right upper extremity started on heparin empirically CV: History nonischemic cardiomyopathy - metoprolol succinate 50 mg daily Fluids/Renal: Acute kidney injury: Improving -Serrano catheter Hypokalemia: Resolved Mild lactic acid acidosis: Resolved - Received 500 mg thiamine IVx3, now 100 mg daily Mixed metabolic acidosis: Improved ID: Monitor fever curve GI/Nutrition: Mild transaminitis -Continue to monitor - Acute hepatitis panel: Negative Course safe to be placed: Tolerating tube feedings Heme: Anemia - Appropriate reticulocytosis, appears to be anemia related to alcohol consumption, folate B12 within acceptable range DVT prophylaxis: Heparin infusion - Presumptive history of prior DVT given calcification of thrombus in mid right femoral vein: Review of chart demonstrates orthopedic injury history to that affected leg - Right upper extremity DVT, history of recent IV starts. Most consistent with provoked DVT, likely needs 3 months of anticoagulation Endocrine: ICU hyperglycemia protocol Vascular access: Peripheral IVs Code Status: Full code Disposition: ICU while requiring Precedex. Patient continues to improve by small amounts daily. (2) Acute alcohol intoxication delirium with moderate or severe use disorder: (3) Electrolyte abnormality: (4) Fracture of right tibial plateau: (5) Chronic systolic CHF (congestive heart failure): (6) S/P ICD (internal cardiac defibrillator) procedure: (7) Nonischemic cardiomyopathy: Admission and Anticipated Discharge Date Admission Date: September 29, 2024 Supervising Physician Co-Signing Physician Notes I have personally spent 40 minutes of critical care time in the direct management of this patient. This is a life/limb threatening event. This in cludes time spent evaluating patient, direct bedside care, chart review, placing orders, interpretation of diagnostic studies, discussion with consultants, patient, and/or family members regarding treatment decisions, as well as other required patient management activities. This time is exclusive of all separately billable procedures, and teaching time and separate from and in addition to any other critical care service time. Subjective Overnight required additional dose of phenobarbital. Overnight team does report that patient is having longer episodes of awareness and is holding his attention longer during that timeframe and speaking occasionally in a complete sentence Physical Exam Physical Exam: General: Intermittently agitated intermittently able to follow simple commands Skin: Warm, dry, Head: Atraumatic Ears, nose, mouth and throat: airway patent Cardiovascular: Normal peripheral perfusion Respiratory: no respiratory distress Gastrointestinal: Non distended Musculoskeletal: No deformity Results & Data Results & Data Vital Signs (Past 12 Hours) Vital Signs Temp Pulse Resp BP Pulse Ox O2 Del Method 10/04/24 05:01 76 28 H 123/86 100 Room Air 10/04/24 04:00 36.4 C L 76 20 128/88 96 Room Air 10/04/24 03:00 77 23 110/64 95 Room Air 10/04/24 02:00 69 21 98/62 L 91 Room Air 10/04/24 01:00 81 28 H 109/75 94 Room Air 10/04/24 00:00 92 H 10/04/24 00:00 84 28 H 124/85 94 Room Air 10/03/24 23:00 73 21 117/72 97 Room Air 10/03/24 22:32 75 32 H 98/77 L 10/03/24 22:01 77 18 98/77 L 100 Room Air 10/03/24 21:56 73 23 98/77 L 10/03/24 21:01 86 21 123/84 10/03/24 21:00 87 21 123/84 96 Room Air 10/03/24 20:00 36.3 C L 89 34 H 113/74 100 Room Air Critical Care Results & Data Vital Signs (Past 12 Hours) Vital Signs Temp Pulse Resp BP Pulse Ox O2 Del Method 10/04/24 05:01 76 28 H 123/86 100 Room Air 10/04/24 04:00 36.4 C L 76 20 128/88 96 Room Air 10/04/24 03:00 77 23 110/64 95 Room Air 10/04/24 02:00 69 21 98/62 L 91 Room Air 10/04/24 01:00 81 28 H 109/75 94 Room Air 10/04/24 00:00 92 H 10/04/24 00:00 84 28 H 124/85 94 Room Air 10/03/24 23:00 73 21 117/72 97 Room Air 10/03/24 22:32 75 32 H 98/77 L 10/03/24 22:01 77 18 98/77 L 100 Room Air 10/03/24 21:56 73 23 98/77 L 10/03/24 21:01 86 21 123/84 10/03/24 21:00 87 21 123/84 96 Room Air 10/03/24 20:00 36.3 C L 89 34 H 113/74 100 Room Air Lab & Micro Results (Past 24 Hours) RBC 3.23 M/uL (4.70-6.10) L 10/04/24 WBC 9.06 K/ul (4.8-10.8) 10/04/24 Hgb 11.7 g/dl (14.0-18.0) L 10/04/24 Hct 33.9 % (42.0-52.0) L 10/04/24 MCV 105.0 fL (80.0-100.0) H 10/04/24 MCH 36.2 pg (25.0-34.0) H 10/04/24 MCHC 34.5 g/dL (32.0-36.0) 10/04/24 RDW Standard Deviation 53.8 fL (36.4-46.3) H 10/04/24 RDW Coefficient of Variation 14.2 % (11.5-14.5) 10/04/24 Plt Count 193 K/uL (130-400) 10/04/24 MPV 11.4 fL (9.4-12.4) 10/04/24 Nucleated Red Blood Cells % (auto) 0.2 % 10/04 Nucleated RBC Absolute Count (auto) 0.02 K/uL (0.00-0.12) 0 10/04/24 Neutrophils (%) (Auto) 76.7 % 10/04/24 Lymphocytes (%) (Auto) 11.5 % 10/04/24 Monocytes # (Auto) 0.75 K/uL (0.11-0.59) H 10/04/24 Eosinophils # (Auto) 0.12 K/uL (0.00-0.50) 10/04/24 Immature Granulocyte % (Auto) 1.9 % 10/04/24 Neutrophils # (Auto) 6.95 K/uL (1.40-6.50) H 10/04/24 Lymphocytes # (Auto) 1.04 K/uL (1.20-3.40) L 10/04/24 Monocytes # (Auto) 0.75 K/uL (0.11-0.59) H 10/04/24 Eosinophils # (Auto) 0.12 K/uL (0.00-0.50) 10/04/24 Basophils # (Auto) 0.03 K/uL (0.00-0.20) 10/04/24 Immature Granulocyte # (Auto) 0.17 K/uL (0.01-0.20) 5 Na 135 mmol/L (136-145) L 10/04/24 K 3.8 mmol/L (3.5-5.1) 10/04/24 Cl 105 mmol/L (98-107) 10/04/24 CO2 23 mmol/L (21-32) 10/04/24 Anion Gap 7 (3-11) 10/04/24 BUN 31 mg/dl (6-23) H 10/04/24 Creatinine 1.24 mg/dl (0.6-1.4) 10/04/24 BUN/Creatinine Ratio 25.0 (10-20) H 10/04/24 Glu 147 mg/dl (70-99(Fasting)) H 10/04/24 Ca 8.4 mg/dl (8.6-10.3) L 10/04/24 Phosphorus Level 2.0 mg/dl (2.5-4.9) L 10/04/24 Mg 2.0 mg/dl (1.7-2.4) 10/04/24 04:32 Calcium Level 8.4 mg/dl (8.6-10.3) L 10/04/24 04:32 I & O Totals 24 Hours 10/03/24 10/04/24 10/05/24 06:59 06:59 06:59 Intake Total 818.307 / 3954.045 9981.854 / 2705.854 Output Total 1076 / 1076 1441 / 1441 Balance -257.693 / -22.070 1264.854 / 1264.854 Cumulative 09/29/24 14:46 thru 10/04/24 06:53 Intake Total 8617.2205 Output Total 4663 Balance 3954.2205 RT Ventilator Mngmt (Last Documented) Ventilator Ordered Settings Respiratory Rate 28 10/04/24 05:01 Fraction of Inspired Oxygen 35 10/02/24 11:30 Ventilator - PT Measurements Respiratory Rate 28 End-Tidal CO2 20 Coding Level of Care Code 66402 CRITICAL CARE 1ST 30-74M Diagnoses Acute alcoholic intoxication with delirium F10.921 Complication of substance-induced condition: with delirium Acute alcohol intoxication delirium with moderate or severe use disorder F10.221 Electrolyte abnormality E87.8 Closed fracture of right tibial plateau, sequela S82.141S Encounter type: sequela Fracture type: closed Chronic systolic CHF (congestive heart failure) I50.22 S/P ICD (internal cardiac defibrillator) procedure Z95.810 Nonischemic cardiomyopathy I42.8 (1) Acute alcohol intoxication Complication of substance-induced condition: with delirium Qualified Code(s): F10.921 - Alcohol use, unspecified with intoxication delirium (4) Fracture of right tibial plateau Encounter type: sequela Fracture type: closed Qualified Code(s): S82.141S - Displaced bicondylar fracture of right tibia, sequela
[2024-10-04] MEDS: REMOVE LIDODERM PATCH SCH (08:46)
[2024-10-04] MEDS ORDERED: KETAMINE HCL 10MG/ML SYR IV STA (12:36)
--- NOTE | 2024-10-04 12:39 | Hospitalist Progress Note ---
Date of Service October 04, 2024 Assessment & Plan (1) Alcohol abuse: (2) Electrolyte abnormality: (3) Chronic systolic CHF (congestive heart failure): (4) Depression with anxiety: (5) Hypertension: (6) Acute alcohol intoxication delirium with moderate or severe use disorder: Plan 69 years old male with PMH of FULL CODE @ home, HTN, non-ischemic cardiomyopathy with chronic systolic CHF with LVEF 30%, normal RV systolic function, and indeterminate LV diastolic function, s/p AICD, and ongoing EtOH abuse who presented to [facility] ER on 09/29/2024 with comsplaint of abdominal distention, generally overall feeling unwell. On exam he did not appear anxious, no tremors. No significant ascites appreciated during my physical exam. No RUQ tenderness. Only trace bilateral LE edema. Patient was subsequently admitted to the inpatient hospitalist service @ [facility] on 09/29/2024 with the following diagnoses: 1. Acute ETOH intoxication with ETOH 143.3 mg/dL (09/29/2024, 5:12pm). 2. Acute ETOH withdrawal with last swig of whisky (09/29/2024, 6:00am). 3. Acute hypokalemia with admission K 2.4 mmol/L (09/29/2024, 3:38pm). 4. Acute hypomagnesemia with admission Mg 1.6 mg/dL (09/29/2024, 3:38pm). 5. Acute hypophosphatemia with admission PO4 2.0 mg/dL (, 9:14pm). 6. Acute hypoxic respiratory failure with O2 saturation 71% on room air (09/30/2024, 2:10am), now with O2 saturation 88-89% on 10 liters/minute O2 via oxymask (09/30/2024, 7:30am). 7. Acute hypercapnic respiratory failure with CO2 45 mmol/L (09/30/2024, 7:03am). 8. Acute kidney injury with admission creatinine 2.20 mg/dL (09/29/2024, 3:38pm). 9. Acute lactic acidosis with admission lactic acid #1 4.2 mmol/L (09/30/2024, 3:24pm). 10.Acute exacerbation of chronic systolic CHF with reduced LVEF 30%, normal RV systolic function, inability to assess LV diastolic function due to prior mitral valve repair (as reported on 06/08/2022 TTE, CARDS Dr. Olman Collins). 11.Acute type II NSTEMI with troponin #1 21.8 pg/mL (, 3:38pm) and troponin #2 22.9 pg/mL (, 5:12pm). The following medical issues are being addressed on 10/04/2024: 1. Acute ETOH intoxication with ETOH 143.3 mg/dL (09/29/2024, 5:12pm). Continue ETOH abstinence while in [facility]. 2. Acute ETOH withdrawal with last swig of whisky (09/29/2024, 6:00am). Continue telemetry, CIWA scale scoring with ativan prn, precedex infusion @ 1.2 ug/kg/hr (10/04/2024, 6:51am), phenobarbital 32.5mg IV bid (10/03/2024, 9:01pm; 10/04/2024, 8:53am), MVI, thiamine, and folate supplementation. 3. Acute hypokalemia with admission K 2.4 mmol/L (09/29/2024, 3:38pm). PERSISTENT s/p supplementation with KCl 40meq PO x 1 dose (09/29/2024, 6:15pm) with post-supplement K 3.2 mmol/L (09/30/2024, 7:03am) and current K 3.0 mmol/L (09/30/2024, 11:09am). Patient subsequently received KCl 10meq IV q1h x 6 bags (09/30/2024, 12:43pm, 12:44pm, 1:34pm). PERSISTENT with post-supplement K 3.4 mmol/L (10/01/2024, 8:43am). Patient subsequently received KCl 10meq IVv q1h x 4 bags (10/01/2024, 6:47pm). Acute hypokalemia RESOLVED with post-supplement K 3.8 mmol/L (10/02/2024, 4:53am), repeat K 3.5 mmol/L (10/03/2024, 4:27am), and current K 3.8 mmol/L (10/04/2024, 4:32am). I will check repeat K level in the 10/05/2024 am. Of note, etiology of acute hypokalemia was most probably due to chronic ETOH-mediated berta-uresis. 4. Acute hypomagnesemia with admission Mg 1.6 mg/dL (09/29/2024, 3:38pm). RESOLVED s/p supplement with magnesium sulfate 1g IV x 2 doses (09/29/2024, 6:13pm, 9:42pm) with post-supplement Mg 2.0 mg/dL (09/30/2024, 7:03am), repeat Mg 1.9 mg/dL (10/01/2024, 4:41am), repeat Mg 1.9 mg/dL (10/02/2024, 4:53am), repeat Mg 2.2 mg/dL (10/03/2024, 4:27am), and current Mg 2.0 mg/dL (10/04/2024, 4:32am). I will check repeat Mg level in the 10/05/2024 am. Of note, etiology of acute hypomagnesemia was most probably due to chronic ETOH-mediated magne- uresis. 5. Acute hypophosphatemia with admission PO4 2.0 mg/dL (, 9:14pm). RECURRENT. No KPO4 supplement given repeat, normal PO4 4.0 mg/dL (09/30/2024, 3:24pm), repeat PO4 3.5 mg/dL (10/01/2024, 4:41am), repeat PO4 4.0 mg/dL (10/02/2024, 4:53am), repeat PO4 2.9 mg/dL (10/03/2024, 4:27am), and current PO4 1.9 mg/dL (10/04/2024, 4:32am). Patient subsequently received KPO4 12 mmol IV x 1 dose (10/04/2024, 6:30am) with post-supplement PO4 2.0 mg/dL (10/04/2024, 9:50am). Subsequently, I have ordered KPO4 20mmol IV x 1 dose. Check repeat PO4 level in the 10/05/2024 am, and supplement to attain/maintain PO4 level > 2.5 mg/dL. 6. Acute hypoxic respiratory failure with O2 saturation 71% on room air (09/30/2024, 2:10am), followed by O2 saturation 88-89% on 10 liters/minute O2 via oxymask (09/30/2024, 7:30am), followed by O2 saturation 94% on High Flow oxygen @ 40 L/min, FIO2 = 0.45 (10/01/2024, 6:01pm), followed by O2 saturation 96% on High Flow oxygen @ 40 L/min, FIO2 = 0.40 (10/02/2024, 7:32am). RESOLVED with O2 saturation 99% on 4 L/min O2 via NC (10/02/2024, 12:51pm), O2 saturation 92% on 3 L/min O2 via NC (10/03/2024, 6:00am), O2 saturation 96% on room air (10/04/2024, 10:01am. Etiology of acute hypoxic respiratory failure remains unclear as patient remains afebrile with WBC remaining normal (cf., admission WBC 5.56, N56 L30 M12 E1 B1 (09/29/2024, 3:38pm) and repeat WBC 9.38, no differential (09/30/2024, 7:03am) and portable CXR (09/29/2024) negative for infiltrate/consolidation, effusion, cardiomegaly, pulmonary vascular congestion, or pneumothorax (by my review). Subsequently, I ordered procalcitonin (09/30/2024, 2:32pm), lactic acid (09/30/2024, 2:32pm), and portable CXR (09/30/2024, 2:33pm). Subsequently, procalcitonin was normal @ 0.10 ng/mL (09/30/2024, 3:24pm), lactic acid was elevated at 4.2 mmol/L (09/30/2024, 3:24pm), and portable CXR (09/30/2024, 2:33pm) revealed "Stable cardiac valve repair and pacemaker. Stable cardiomegaly with increased pulmonary vascular congestion. There is increased patchy opacity throughout the right lung and at the left lung base. No pleural effusion or pneumothorax." Hence, acute exacerbation of chronic systolic CHF with last recorded LVEF 30% (as noted on 06/08/2022, 1:13pm TTE, CARDS Dr. Olman Collins) may be contributing to patient's acute hypoxic respiratory failure. Subsequently, I ordered TTE for the 10/02/2024 am; still pending as of 10/04/2024, 12:20pm. In the interim, patient is NOT being started on lasix and is being held off his home-scheduled met oprolol succinate XL 50mg PO qam, given the potential for either/both medications to lower patient's BP below current BP 105/79 (10/04/2024, 10:01am). 7. Acute hypercapnic respiratory failure with CO2 45 mmol/L (09/30/2024, 7:03am) and CO2 35 mmol/L (10/01/2024, 4:41am), RESOLVED with CO2 29 mmol/L (10/02/2024, 4:53am). Etiology of of acute hypercapnic respiratory failure remains unclear in this patient who is still hyperventilating at: 29 breaths/minute (09/30/2024, 7:30am) 34 breaths/minute (09/30/2024, 1:03pm) 24 breaths/minute (10/01/2024, 8:00 am and 6:01pm) 22 breaths/minute (10/04/2024, 10:01am). In the interim, I ordered portable CXR (09/30/2024, 2:33pm) to check for evidence of COPD, bronchiectasis/fibrosis, and/or atelectasis, which can lead to hypercapnia, and none of which were observed on portable CXR (09/30/2024, 2:33pm). 8. Acute kidney injury with admission creatinine 2.20 mg/dL (09/29/2024, 3:38pm), RESOLVED. cf., admission creatinine 2.20 mg/dL (09/29/2024, 3:38pm). cf., repeat creatinine 1.90 mg/dL (09/30/2024, 7:03am). cf., repeat creatinine 1.88 mg/dL (10/01/2024, 4:41am). cf., repeat creatinine 1.91 mg/dL (10/02/2024, 4:53am). cf., repeat creatinine 1.58 mg/dL (10/03/2024, 4:27am). cf., current creatinine 1.24 mg/dL (10/04/2024, 4:32am). cf., baseline creatinine range, 0.95 mg/dL (04/25/2022, 6:21am) to 1.37 mg/dL (07/04/2024, 7:12am). Etiology of acute kidney injury remains unclear, but may be due to patient's home-scheduled sacubitril 49mg - valsartan 51mg PO bid, lasix 40mg PO qam, spironolactone 25mg PO daily, and lisinopril 20mg PO daily given the potential for any/all of these agents to cause further renal embarrassment. Hence, I have opted to hold OFF patient's home-scheduled sacubitril 49mg - valsartan 51mg PO bid, lasix 40mg PO qam, spironolactone 25mg PO daily, and lisinopril 20mg PO daily. Observe. 9. Acute lactic acidosis with admission lactic acid #1 4.2 mmol/L (09/30/2024, 3:24pm), RESOLVED. cf., lactic acid #2 4.3 mmol/L (09/30/2024, 6:18pm). cf., lactic acid #3 3.6 mmol/L (09/30/2024, 8:00pm). cf., lactic acid #4 3.3 mmol/L (10/01/2024, 4:41am). cf., lactic acid #5 5.7 mmol/L (10/01/2024, 9:04am). cf., lactic acid #6 2.3 mmol/L (10/01/2024, 7:07pm). cf., lactic acid #7 1.4 mmol/L (10/02/2024, 4:53am). cf., lactic acid #8 2.9 mmol/L (10/03/2024, 9:38am). cf., lactic acid #9 1.5 mmol/L (10/04/2024, 4:32am). Etiology of acute lactic acidosis remains unclear, but is probably due to a combination of (a) acute dehydration from chronic ETOH-mediated diuresis and (b) lkaoh-hn-hlntzfg transaminitis, which in turn, is due to chronic alcoholic hepatitis. Observe. cf., AST 58 U/L, ALT 25 U/L, ALK PHOS 168 U/L (09/29/2024, 3:38pm). cf., AST 45 U/L, ALT 22 U/L, ALK PHOS 164 U/L (09/30/2024, 7:03am). cf., AST 41 U/L, ALT 18 U/L, ALK PHOS 153 U/L (10/01/2024, 4:41am). cf., baseline AST range, 18 - 33 U/L (10/22/2020 - 07/04/2024), ALT range, 12-38 U/L (10/22/2020 - 07/04/2024), ALK PHOS range, 110-124 U/L (03/09/2022 - 07/04/2024). To address (a), patient received 1 liter of 0.9% NS @ 999 mL/hr (09/29/2024, 6:16pm), followed by 1 liter of lactated Ring[place] @ 125 mL/hr (09/29/2024, 9:42pm) in [facility] ER. Patient is being held off further IV fluid rehydration therapy in order to avoid further cardio-pulmonary embarrassment. 10. Acute exacerbation of chronic systolic CHF with reduced LVEF 30%, normal RV systolic function, inability to assess LV diastolic function due to prior mitral valve repair (as reported on 06/08/2022 TTE, CARDS Dr. Olman Collins). s/p AICD. Hold off home-scheduled metoprolol succinate 50mg PO qam in order to avoid further cardio-pulmonary embarrassment. Hold OFF home-scheduled sacubitril 49mg - valsartan 51mg PO bid, lasix 40mg PO qam, spironolactone 25mg PO daily, and lisinopril 20mg PO daily, given the potential for any/all of these agents to cause further renal embarrassment. cf., admission creatinine 2.20 mg/dL (09/29/2024, 3:38pm). cf., repeat creatinine 1.90 mg/dL (09/30/2024, 7:03am). cf., repeat creatinine 1.88 mg/dL (10/01/2024, 4:41am). cf., repeat creatinine 1.91 mg/dL (10/02/2024, 4:53am). cf., repeat creatinine 1.58 mg/dL (10/03/2024, 4:27am). cf., current creatinine 1.24 mg/dL (10/04/2024, 4:32am). cf., baseline creatinine range, 0.95 mg/dL (04/25/2022, 6:21am) to 1.37 mg/dL (07/04/2024, 7:12am). 11. Acute type II NSTEMI with troponin #1 21.8 pg/mL (, 3:38pm) and troponin #2 22.9 pg/mL (, 5:12pm). Etiology of nominally elevated troponin levels remains unclear, but is most probably due to demand ischemia, which in turn, is due to (a) acute hypoxic respiratory failure, which in turn, is due to (b) acute exacerbation of chronic systolic CHF with reduced LVEF 30%, normal RV systolic function, inability to assess LV diastolic function due to prior mitral valve repair (as reported on 06/08/2022 TTE, CARDS Dr. Olman Collins). Hence, I have opted to observe this laboratory anomaly at this time. 12. Disposition. Code status, FULL CODE @ home. ALS as required. Condition of patient remains tenuous, if not terminal, given the severity of patient's medical problems noted above. To this end, I called and spoke with the patient's daughter, Ms. Carla Tidwell ( ) on 10/04/2024, 12:36pm, and she concurs with the assessment and plan as described above. Admission and Anticipated Discharge Date Admission Date: September 29, 2024 Subjective Unavailable as patient remains lethargic, obtunded, and non-verbal, on precedex infusion, starting at 0.4 ug/kg/hr (10/01/2024, 3:57am), now at 1.2 ug/kg/hr ( 10/04/2024, 6:51am). s/p phenobarbital 65mg IV bid x 4 doses (10/01/2024, 9:11pm; 10/02/2024, 8:12am, 8:41pm; 10/03/2024, 8:19am), s/p phenobarbital 65mg IV x 1 dose (10/03/2024, 10:32pm), now on phenobarbital 32.5mg IV bid (10/03/2024, 9:01pm; 10/04/2024, 8:53am). Either precedex infusion and/or phenobarbital can be contributing to patient's lethargic, obtunded, and non-verbal state. Review of Systems Constitutional: Unavailable as patient remains lethargic, obtunded, and non-verbal, on precedex infusion, starting at 0.4 ug/kg/hr (10/01/2024, 3:57am), now at 1.2 ug/kg/hr (10/04/2024, 6:51am). s/p phenobarbital 65mg IV bid x 4 doses (10/01/2024, 9:11pm; 10/02/2024, 8:12am, 8:41pm; 10/03/2024, 8:19am), s/p phenobarbital 65mg IV x 1 dose (10/03/2024, 10:32pm), now on phenobarbital 32.5mg IV bid (10/03/2024, 9:01pm; 10/04/2024, 8:53am). Either precedex infusion and/or phenobarbital can be contributing to patient's lethargic, obtunded, and non-verbal state. Physical Exam Constitutional: General: Comfortable, lethargic, obtunded. Non-verbal with mouth hanging wide open on room air with O2 saturation 96% (10/04/2024, 10:01am). HEENT: Normocephalic, atraumatic. Pupils equally round and reactive to light. No nystagmus, gaze paresis, anisocoria, miosis, mydriasis, hyphema, scleral injection, conjunctivitis, or pterygium. No otorrhea. No pharyngeal erythema, edema, or discharge. Neck: Supple, no stridor, bruit, goiter, or hepato-jugular reflux. Jugular venous pressure is estimated to be 3 cm above the sternal angle of [place], which in turn, is 5 cm above the level of the right atrium; with jugular venous pressure estimated to be 8 cm, then, there is no jugular venous distention on 10/04/2024. Lymphatics: No cervical (anterior/posterior), supraclavicular, infraclavicular, axillary, epitrochlear, or inguinal adenopathy. Chest: Symmetric rise and fall with respirations. Non-tender to palpation. Lungs: Clear to auscultation and percussion. No audible expiratory wheeze, egophony, pectoriloquy, increase in tactile fremitus, or flatness/dullness to percussion at the bases. Heart: Increased rate. Regular rhythm. S1 and S2 noted. No S3 or S4 summation gallop. No tripartite friction rub. Grade II/ early systolic murmur @ LLSB without radiation to the carotids, axilla, or back, and which remains invariant in regards to the respiratory cycle. Abdomen: Soft, non-tender, non-distended. No rebound, guarding, Logan's sign, or organomegaly. Bowel sounds auscultated in all 4 quadrants. Extremities: No clubbing, cyanosis, or edema in upper extremities or lower extremities bilaterally. 2+ pedal pulses bilaterally. Skin: No decubitus ulcer or enanthem. Genito-urinary: No urethral discharge. + poole catheter with urine output 0.77 mL/kg/hr (10/03/2024, 7:56am to 10/04/2024, 7:56am) Neurology: No myoclonus, tremors, or tics. Psychiatry: No homicidal ideation. No suicidal ideation. No flat affect; smiles appropriately. Results & Data Results & Data Vital Signs (Past 12 Hours) Vital Signs Temp Pulse Resp BP Pulse Ox O2 Del Method 10/04/24 10:01 105/79 10/04/24 10:00 75 22 96 10/04/24 09:00 87 24 97 10/04/24 08:55 137/81 10/04/24 08:53 88 20 137/81 10/04/24 08:39 88 10 L 100 10/04/24 08:15 75 10/04/24 08:00 93/62 L 10/04/24 08:00 74 20 96 10/04/24 07:53 36.4 C L 10/04/24 07:21 74 20 126/86 97 Room Air 10/04/24 05:01 76 28 H 123/86 100 Room Air 10/04/24 04:00 36.4 C L 76 20 128/88 96 Room Air 10/04/24 03:00 77 23 110/64 95 Room Air 10/04/24 02:00 69 21 98/62 L 91 Room Air 10/04/24 01:00 81 28 H 109/75 94 Room Air Laboratory Results Abnormal lab results 10/04/24 10/04/24 Range/Units 04:32 09:50 RBC 3.23 L (4.70-6.10) M/uL Hgb 11.7 L (14.0-18.0) g/dl Hct 33.9 L (42.0-52.0) % MCV 105.0 H (80.0-100.0) fL MCH 36.2 H (25.0-34.0) pg RDW Std Deviation 53.8 H (36.4-46.3) fL Neut # (Auto) 6.95 H (1.40-6.50) K/uL Lymph # (Auto) 1.04 L (1.20-3.40) K/uL [place] # (Auto) 0.75 H (0.11-0.59) K/uL Sodium 135 L (136-145) mmol/L BUN 31 H (6-23) mg/dl BUN/Creatinine Ratio 25.0 H (10-20) Glucose 147 H (70-99(Fasting)) mg/dl Calcium 8.4 L (8.6-10.3) mg/dl Phosphorus 1.9 L D 2.0 L (2.5-4.9) mg/dl PG Care Time/CCT Total # of Minutes Spent Total Time Spent with Patient: Total time spent is greater than 50% in coordination of care (as documented) at patient's floor/unit and/or counseling patient: Coding Level of Care Code 88027 SUB INP/OBS CARE 350MIN Diagnoses Alcohol abuse F10.10 Electrolyte abnormality E87.8 Chronic systolic CHF (congestive heart failure) I50.22 Depression with anxiety F41.8 Hypertension I10 Acute alcohol intoxication delirium with moderate or severe use disorder F10.221
[2024-10-04] MEDS ORDERED: STAT IV/IM STA (12:41)
[2024-10-04] MEDS: SODIUM CHLORIDE 0.9% IV ONE (12:51)
[2024-10-04] MEDS: KETAMINE HCL IV ONE (12:51)
--- NOTE | 2024-10-04 13:34 | XRay Report ---
HISTORY: Mucous plugging. TECHNIQUE: Supine AP abdominal radiograph. COMPARISON: Chest radiograph dated 09/30/2024. FINDINGS: Multifocal right lung airspace opacity is similar. Left lung airspace opacity has increased. Pulmonary vascular congestion. No pneumothorax or significant effusion.Cardiomegaly. Postsurgical changes of median sternotomy and cardiac valve replacement. Left subclavian approach pacer/AICD with right ventricular read. Feeding tube extends into the stomach with the tip of the inferior margin of the film. property assessment monitor leads overlie the chest. IMPRESSION: * Findings of CHF with cardiomegaly and pulmonary vascular congestion. Multifocal severe bilateral airspace opacity may represent pulmonary edema, pneumonia, or ARDS. * Airspace opacity within the left lung has increased since the prior study. * Postsurgical changes of the heart and mediastinum. Electronically signed by Gabino Walker 10-04-2024 13:33 PM
[2024-10-04] MEDS: RACEPINEPHRINE 2.25% NEBU SOLN 0.5 ML VIAL ONE (13:40)
[2024-10-04] MEDS: RACEPINEPHRINE 2.25% NEBU SOLN 0.5 ML VIAL NEB STA (13:45)
--- NOTE | 2024-10-04 13:51 | Procedure Note ---
Procedure Note Date of Service October 04, 2024 Procedure Date: Noted above Procedure: Direct laryngoscopy with subsequent video laryngoscopy Indication: Acute hypoxic respiratory failure Post-procedure Diagnosis: same as above Prior to Procedure: Informed Consent: Emergent consent implied, patient's daughter present at bedside Performing provider: Jeanette Millard DO The identity of the patient was confirmed and a bedside time out was performed. Prior to the procedure the patient has been hospitalized for several days and is undergoing treatment for delirium tremens. Patient became abruptly hypoxic. Description of Procedure: Utilizing a 3 MAC blade I was able to visualize the glottic opening. Utilizing Archie forceps there appeared to be an entire concretion of body fluids over the glottic opening I was carefully able to lift this and the patient started passing more air. Care was taken to remove a significant amount of concretions over the glottic opening as well as the hypopharyngeal folds. There was no evidence of deirdre laryngeal edema, there was no bleeding no oozing To facilitate a more comprehensive look I switched to a video laryngoscope and confirmed there was no subsequent bleeding. Patient was having some intermittent stridor this appeared to be from the uvula which was not swollen. Patient had a course safe feeding tube placed in the right nare, he has a history of multiple nasal fractures and deviated septum was rather difficult to attempt to blindly pass a nasal trumpet in the left nare. Ultimately I utilized a bronchoscope to visualize a pathway through the right nare and was able to successfully bypass the post nasal tissues and uvula and the patient's respirati ons improved and his oxygen saturation rapidly increased to 99%. After placement of the nasal trumpet the hypopharynx was again visualized and there is no areas of bleeding or oozing. Discussed the findings with the patient's daughter at bedside. Complications: None Findings: Noted above, concretion leading to upper airway obstruction Specimens: Not applicable Estimated blood loss: Zero [id number] Procedure Codes (Charges) ENT ENT: 01234 Diagnostic laryngoscopy Coding CPT Codes ENT - ENT: 88661 Diagnostic laryngoscopy ([id number]) Additional Codes Date of Service ([email or web address])
--- NOTE | 2024-10-04 14:06 | XRay Report ---
HISTORY: Respiratory failure TECHNIQUE: Portable AP radiograph of the chest. COMPARISON: Chest radiograph from the same day acquired at 1321 hrs. FINDINGS: Cardiomegaly with pulmonary vascular congestion. Multifocal airspace opacity throughout both lungs. No pneumothorax or definite effusion. Postsurgical changes of median sternotomy and cardiac valve replacement. Left subclavian approach pacer/AICD with right ventricular lead. Feeding tube extends into the stomach with the tip of the inferior margin of the film. threat monitoring analyst leads overlie the chest. IMPRESSION: * Cardiomegaly with pulmonary vascular congestion suggesting CHF. * Similar multifocal bilateral airspace opacity, which could represent pulmonary edema, pneumonia, or ARDS. * Postsurgical changes of the heart and mediastinum. Electronically signed by Gabino Walker 10-04-2024 2:05 PM
[2024-10-04] MEDS: RAPID SEQUENCE INDUCTION BAG ONE (14:12)
[2024-10-05 05:49] LABS: Hematocrit (blood only) 38.1 % (42.0-52.0); Hemoglobin 12.2 g/dl (14.0-18.0); Mean Corpuscular Hemoglobin 35.7 pg (25.0-34.0); Mean Corpuscular Volume 111.4 fL (80.0-100.0); Platelet Count 169 K/uL (130-400); RDW Standard Deviation 61.3 fL (36.4-46.3); Red Blood Count 3.42 M/uL (4.70-6.10); White Blood Count 10.74 K/ul (4.8-10.8)
[2024-10-05 05:50] LABS: Immature Granulocytes # (auto) 0.25 K/uL (0.01-0.20); Immature Granulocytes % (auto) 2.3 %; Macrocytosis Present
--- NOTE | 2024-10-05 08:18 | Critical Care Progress Note ---
Date of Service October 05, 2024 Assessment & Plan (1) Acute alcohol intoxication: Plan: Reason Critically Ill: 69-year-old male with acute agitated delirium PLAN: Neuro: Acute agitated delirium: Continued improvement - Previously on ketamine and Precedex: Discontinue Precedex - Had received both Haldol and olanzapine during the course of his hospital admission complicated by prolonged QT - Continue phenobarbital taper to completion over next 2 days - I am hopeful that we have by enlarge overcome the physiologic concerns of alcohol withdraw and are currently by enlarge managing multifactorial delirium - He was evaluated by speech and swallow, had adequate swallowing reflex so diet has been ordered and NG tube was discontinued - Hopeful initiating oral nutrition will be significant in reduction of delirium - Discontinuing as needed phenobarbital transitioning back to alcohol withdrawal severity scoring and symptom triggered medication ammonia level: Within normal limits Resp: Mild hypoxia has completely resolved - He is saturating 100% on room air with no nasal trumpet nor supplemental oxygen Acute airway obstruction on October 04 necessitating physical removal with Archie forceps - Related to oral and nasal mucous, patient frequently clears throat CV: History nonischemic cardiomyopathy - metoprolol tartrate 25 mg twice daily Prolonged QT - Avoid antipsychotics for sedatives Fluids/Renal: Acute kidney injury: Resolved - Discontinued Serrano catheter and replaced with condom cath again with goals to decrease interventions hopefully decreasing delirium triggers Hypokalemia: Resolved Mild lactic acid acidosis: Resolved - Received 500 mg thiamine IVx3, now 100 mg daily - There was concern of a lactic acid level being elevated today, this is since resolved, I do not believe the patient is receiving significant amounts of propylene glycol to cause a lactic acidosis as his osmolality is also within normal limits. Certainly patient may be able to induce lactic acidosis during episodes of extreme agitation however venous blood gas and lactic acid are also normal at this time Mixed metabolic acidosis: Resolved ID: Monitor fever curve GI/Nutrition: Mild transaminitis - Elevated AST - Acute hepatitis panel: Negative Heme: Anemia - Appropriate reticulocytosis, appears to be anemia related to alcohol consumption, folate B12 within acceptable range DVT prophylaxis: Heparin infusion - Presumptive history of prior DVT given calcification of thrombus in mid right femoral vein: Review of chart demonstrates orthopedic injury history to that affected leg - Right upper extremity DVT, history of recent IV starts. Most consistent with provoked DVT, likely needs 3 months of anticoagulation Endocrine: ICU hyperglycemia protocol Vascular access: After losing several IVs in the noted right upper extremity DVT we have placed a midline in the left upper extremity Code Status: Full code Disposition: Patient is no longer requiring intravenous sedative medication. His total daily dose of administered sedatives have been decreasing, and his empiric orally administered phenobarbital is decreasing as well. Therefore patient's critical care needs have resolved. I had a discussion with the patient's daughter regarding his mental status. Patient previously was intermittently combative during episodes of delirium. He has had a very protracted course requiring significant amounts of sedatives. If patient necessitated endotracheal intubation believe would be extremely difficult to wean sedation to a point that the patient would be able to participate with directions to safely extubate and would be at high risk for needing temporary tracheostomy to safely liberate from a ventilator. Also discussed during this episode of resolving delirium her presence at the bedside has by enlarge been calming for the patient. It may be helpful for family presence in this case to provide familiarity and help avoid some of the delirium triggers. (2) Acute alcohol intoxication delirium with moderate or severe use disorder: (3) Electrolyte abnormality: (4) Fracture of right tibial plateau: (5) Chronic systolic CHF (congestive heart failure): (6) S/P ICD (internal cardiac defibrillator) procedure: (7) Nonischemic cardiomyopathy: Admission and Anticipated Discharge Date Admission Date: September 29, 2024 Subjective Patient's mental status continues to improve. However, patient is still delirious. Appears it is a difficult nursing assignment as the patient is continuing to shout vulgarities and engage in sexual prepositioning. 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 This would not have been possible yesterday. He is slightly redirectable and able to follow commands however by enlarge he is defiant as his noncompliance does not appear to be from a dense encephalopathy or misunderstanding. Physical Exam Physical Exam: General: Mental status continuing to improve. Using vulgarities and engaging in sexual prepositioning with nursing staff. Redirectable at times however very distractible and tangential. Confrontational requiring physical restraints. Skin: Warm, dry, Head: Atraumatic Ears, nose, mouth and throat: airway patent Cardiovascular: Normal peripheral perfusion Respiratory: no respiratory distress Gastrointestinal: Non distended Musculoskeletal: No deformity Results & Data Results & Data Vital Signs (Past 12 Hours) Vital Signs Temp Pulse Resp BP Pulse Ox 10/05/24 05:12 105 H 17 135/92 10/05/24 03:18 79 100 10/05/24 02:00 82 100 10/05/24 02:00 136/92 10/05/24 01:00 78 100 10/05/24 01:00 132/87 10/05/24 01:00 132/87 10/05/24 00:03 77 100 10/05/24 00:00 129/91 10/04/24 23:57 79 100 10/04/24 23:09 78 100 10/04/24 22:00 82 100 10/04/24 22:00 36.5 C 10/04/24 21:30 130/90 10/04/24 21:21 73 100 10/04/24 21:00 72 100 10/04/24 21:00 113/90 10/04/24 20:30 122/87 10/04/24 20:30 122/87 10/04/24 20:30 73 100 Critical Care Results & Data Vital Signs (Past 12 Hours) Vital Signs Temp Pulse Resp BP Pulse Ox Pulse Ox O2 Del Method 10/05/24 13:02 155/127 H 10/05/24 13:02 155/127 H 10/05/24 13:00 116 H 25 H 100 10/05/24 12:26 139/88 10/05/24 12:00 128 H 35 H 94 10/05/24 11:41 36.8 C 10/05/24 11:39 145/99 H 10/05/24 11:30 103 H 24 100 10/05/24 10:15 148/100 H 10/05/24 10:06 119 H 20 98 Room Air 10/05/24 09:03 99 H 22 97 10/05/24 09:01 149/109 H 10/05/24 08:48 98 H 18 100 10/05/24 08:33 95 H 18 126/84 10/05/24 08:00 36.5 C 10/05/24 08:00 Room Air 10/05/24 08:00 100 10/05/24 08:00 126/84 10/05/24 07:30 82 18 99 10/05/24 07:00 133/87 10/05/24 06:49 85 10/05/24 05:12 105 H 17 135/92 10/05/24 03:18 79 100 07/05/25 02:00 82 100 10/05/24 02:00 136/92 O2 Del Method 10/05/24 13:02 10/05/24 13:02 10/05/24 13:00 10/05/24 12:26 10/05/24 12:00 10/05/24 11:41 10/05/24 11:39 10/05/24 11:30 10/05/24 10:15 10/05/24 10:06 10/05/24 09:03 10/05/24 09:01 10/05/24 08:48 10/05/24 08:33 10/05/24 08:00 10/05/24 08:00 10/05/24 08:00 Room Air 10/05/24 08:00 10/05/24 07:30 10/05/24 07:00 10/05/24 06:49 10/05/24 05:12 10/05/24 03:18 10/05/24 02:00 10/05/24 02:00 Lab & Micro Results (Past 24 Hours) RBC 3.42 M/uL (4.70-6.10) L 10/05/24 WBC 10.74 K/ul (4.8-10.8) 10/05/24 Hgb 12.2 g/dl (14.0-18.0) L 10/05/24 Hct 38.1 % (42.0-52.0) L 10/05/24 MCV 111.4 fL (80.0-100.0) H 10/05/24 MCH 35.7 pg (25.0-34.0) H 10/05/24 MCHC 32.0 g/dL (32.0-36.0) 10/05/24 RDW Standard Deviation 61.3 fL (36.4-46.3) H 10/05/24 RDW Coefficient of Variation 14.9 % (11.5-14.5) H 10/05/24 Plt Count 169 K/uL (130-400) 10/05/24 MPV 11.7 fL (9.4-12.4) 10/05/24 Nucleated Red Blood Cells % (auto) 0.4 % 10/05 Nucleated RBC Absolute Count (auto) 0.04 K/uL (0.00-0.12) 0 10/05/24 Neutrophils (%) (Auto) 74.7 % 10/05/24 Lymphocytes (%) (Auto) 9.8 % 10/05/24 Monocytes # (Auto) 1.26 K/uL (0.11-0.59) H 10/05/24 Eosinophils # (Auto) 0.12 K/uL (0.00-0.50) 10/05/24 Immature Granulocyte % (Auto) 2.3 % 10/05/24 Neutrophils # (Auto) 8.02 K/uL (1.40-6.50) H 10/05/24 Lymphocytes # (Auto) 1.05 K/uL (1.20-3.40) L 10/05/24 Monocytes # (Auto) 1.26 K/uL (0.11-0.59) H 10/05/24 Eosinophils # (Auto) 0.12 K/uL (0.00-0.50) 10/05/24 Basophils # (Auto) 0.04 K/uL (0.00-0.20) 10/05/24 Immature Granulocyte # (Auto) 0.25 K/uL (0.01-0.20) H 10/05 Macrocytosis Present 10/05/24 Toxic Vacuolation 1+ 10/05/24 Na 139 mmol/L (136-145) 10/05/24 K 4.6 mmol/L (3.5-5.1) 10/05/24 Cl 106 mmol/L (98-107) 10/05/24 CO2 22 mmol/L (21-32) 10/05/24 Anion Gap 11 (3-11) 10/05/24 BUN 28 mg/dl (6-23) H 10/05/24 Creatinine 1.10 mg/dl (0.6-1.4) 10/05/24 BUN/Creatinine Ratio 25.5 (10-20) H 10/05/24 Glu 69 mg/dl (70-99(Fasting)) L 10/05/24 Ca 8.9 mg/dl (8.6-10.3) 10/05/24 Phosphorus Level 2.5 mg/dl (2.5-4.9) 10/05/24 Total Bilirubin 0.7 mg/dl (0.2-1.0) 10/05/24 Direct Bilirubin 0.2 mg/dl (0-0.2) 10/05/24 AST 86 U/L (13-39) H 10/05/24 ALT 49 U/L (7-52) 10/05/24 Alkaline Phosphatase 155 U/L (34-104) H 10/05/24 TP 6.7 gm/dl (6.0-8.3) 10/05/24 Albumin 3.2 gm/dl (3.4-5.0) L 10/05/24 Mg 2.0 mg/dl (1.7-2.4) 10/05/24 08:40 Calcium Level 8.9 mg/dl (8.6-10.3) 10/05/24 08:40 Prothromb Time International Ratio 1.0 (0.9-1.1) 10/05/24 09:3 4 Venous Blood pH 7.37 (7.36-7.41) 10/05/24 12:41 Venous Blood Partial Pressure CO2 38 mmHg (38-50) 10/05/24 12:4 1 Venous Blood Partial Pressure O2 33 mmHg 10/05/24 12:41 Venous Blood HCO3 22 mmol/L 10/05/24 12:41 Venous Blood Base Excess -2.9 mEq/L 10/05/24 12:41 Venous Blood Oxygen Saturation < 60.0 % 10/05/24 12:41 Diagnostic Findings (Past 24 Hours) Chest X-Ray 10/04/24 00:00 HISTORY: Respiratory failure TECHNIQUE: Portable AP radiograph of the chest. COMPARISON: Chest radiograph from the same day acquired at 1321 hrs. FINDINGS: Cardiomegaly with pulmonary vascular congestion. Multifocal airspace opacity throughout both lungs. No pneumothorax or definite effusion. Postsurgical changes of median sternotomy and cardiac valve replacement. Left subclavian approach pacer/AICD with right ventricular lead. Feeding tube extends into the stomach with the tip of the inferior margin of the film. american history teacher leads overlie the chest. IMPRESSION: * Cardiomegaly with pulmonary vascular congestion suggesting CHF. * Similar multifocal bilateral airspace opacity, which could represent pulmonary edema, pneumonia, or ARDS. * Postsurgical changes of the heart and mediastinum. Electronically signed by Gabino Walker 10-04-2024 2:05 PM Chest X-Ray 10/04/24 13:20 HISTORY: Mucous plugging. TECHNIQUE: Supine AP abdominal radiograph. COMPARISON: Chest radiograph dated 09/30/2024. FINDINGS: Multifocal right lung airspace opacity is similar. Left lung airspace opacity has increased. Pulmonary vascular congestion. No pneumothorax or significant effusion.Cardiomegaly. Postsurgical changes of median sternotomy and cardiac valve replacement. Left subclavian approach pacer/AICD with right ventricular read. Feeding tube extends into the stomach with the tip of the inferior margin of the film. american history teacher leads overlie the chest. IMPRESSION: * Findings of CHF with cardiomegaly and pulmonary vascular congestion. Multifocal severe bilateral airspace opacity may represent pulmonary edema, pneumonia, or ARDS. * Airspace opacity within the left lung has increased since the prior study. * Postsurgical changes of the heart and mediastinum. Electronically signed by Gabino Walker 10-04-2024 13:33 PM I & O Totals 24 Hours 10/04/24 10/05/24 10/06/24 06:59 06:59 06:59 Intake Total 2705.854 / 2705.854 2113.297 / 2375.830 437.677 / 437.677 Output Total 1441 / 1441 1685 / 1685 350 / 350 Balance 1264.854 / 1264.854 428.297 / 690.830 87.677 / 87.677 Cumulative 09/29/24 14:46 thru 10/05/24 12:31 Intake Total 42986.1945 Output Total 6698 Balance 4470.1945 RT Ventilator Mngmt (Last Documented) Ventilator Ordered Settings Respiratory Rate 25 10/05/24 13:00 Fraction of Inspired Oxygen 70 10/04/24 20:00 Ventilator - PT Measurements Respiratory Rate 25 End-Tidal CO2 5 Coding Level of Care Code 89493 SUB INP/OBS CARE 3/50MIN Diagnoses Acute alcoholic intoxication with delirium F10.921 Complication of substance-induced condition: with delirium Acute alcohol intoxication delirium with moderate or severe use disorder F10.221 Electrolyte abnormality E87.8 Closed fracture of right tibial plateau, sequela S82.141S Encounter type: sequela Fracture type: closed Chronic systolic CHF (congestive heart failure) I50.22 S/P ICD (internal cardiac defibrillator) procedure Z95.810 Nonischemic cardiomyopathy I42.8 (1) Acute alcohol intoxication Complication of substance-induced condition: with delirium Qualified Code(s): F10.921 - Alcohol use, unspecified with intoxication delirium (4) Fracture of right tibial plateau Encounter type: sequela Fracture type: closed Qualified Code(s): S82.141S - Displaced bicondylar fracture of right tibia, sequela
[2024-10-05 09:14] LABS: Anion Gap 11.0 (3-11); Blood Urea Nitrogen 28.0 mg/dl (6-23); Calcium 8.9 mg/dl (8.6-10.3); Carbon Dioxide 22.0 mmol/L (21-32); Chloride 106.0 mmol/L (98-107); Creatinine Clr Calc Pharmacy 68.5 ml/min; Glucose 69.0 mg/dl (70-99(Fasting)); Magnesium 2.0 mg/dl (1.7-2.4); Potassium 4.6 mmol/L (3.5-5.1); Sodium 139.0 mmol/L (136-145)
[2024-10-05] MEDS: METOPROLOL TARTRATE 25 MG TAB PO SCH (09:40)
[2024-10-05 09:58] LABS: Toxic Vacuolation 1+
[2024-10-05 10:15] LABS: ANTI-Xa, UFH(UnfractionatedHep 0.24 IU/ml (0.3-0.7)
[2024-10-05 10:32] LABS: Alanine Aminotransferase 49.0 U/L (7-52); Alkaline Phosphatase 155.0 U/L (34-104); Bilirubin,Total 0.7 mg/dl (0.2-1.0); Lipase 166.0 U/L (11-82); Total Protein 6.7 gm/dl (6.0-8.3)
[2024-10-05 11:16] LABS: INR 1.0 (0.9-1.1); Partial Thromboplastin Time 25 Seconds (21-31); Prothrombin Time 10.5 Seconds (9.0-12.0)
[2024-10-05] MEDS ORDERED: KETAMINE HCL 10MG/ML SYR IV STA (12:04)
[2024-10-05] MEDS ORDERED: diazePAM 5 MG/ML 10ML VIAL IV STA (12:06)
[2024-10-05] MEDS: KETAMINE HCL INJ 50 MG/ML 10 ML VIAL ONE (12:23)
[2024-10-05] MEDS: diazePAM 5 MG/ML 10ML VIAL ONE (12:30)
[2024-10-05 12:55] LABS: Base Excess VBG -2.9 mEq/L; HCO3 VBG 22 mmol/L; Oxygen Saturation VBG < 60.0 %; PCO2 VBG 38 mmHg (38-50); PO2 VBG 33 mmHg; pH VBG 7.37 (7.36-7.41)
[2024-10-05] MEDS ORDERED: Ativan IV Alcohol Withdrawal--Active Protocol IV PRN (15:54)
[2024-10-05 17:37] LABS: ANTI-Xa, UFH(UnfractionatedHep 0.36 IU/ml (0.3-0.7)
[2024-10-05] MEDS: METOPROLOL TARTRATE 1 MG/ML VIAL IV STA (18:44)
--- NOTE | 2024-10-05 20:53 | Hospitalist Progress Note ---
Date of Service October 05, 2024 Assessment & Plan (1) Alcohol abuse: (2) Electrolyte abnormality: (3) Chronic systolic CHF (congestive heart failure): (4) Depression with anxiety: (5) Hypertension: (6) Acute alcohol intoxication delirium with moderate or severe use disorder: Plan 69 years old male with PMH of FULL CODE @ home, HTN, non-ischemic cardiomyopathy with chronic systolic CHF with LVEF 30%, normal RV systolic function, and indeterminate LV diastolic function, s/p AICD, and ongoing EtOH abuse who presented to [facility] ER on 09/29/2024 with comsplaint of abdominal distention, generally overall feeling unwell. On exam he did not appear anxious, no tremors. No significant ascites appreciated during my physical exam. No RUQ tenderness. Only trace bilateral LE edema. Patient was subsequently admitted to the inpatient hospitalist service @ [facility] on 09/29/2024 with the following diagnoses: 1. Acute ETOH intoxication with ETOH 143.3 mg/dL (09/29/2024, 5:12pm). 2. Acute ETOH withdrawal with last swig of whisky (09/29/2024, 6:00am). 3. Acute hypokalemia with admission K 2.4 mmol/L (09/29/2024, 3:38pm). 4. Acute hypomagnesemia with admission Mg 1.6 mg/dL (09/29/2024, 3:38pm). 5. Acute hypophosphatemia with admission PO4 2.0 mg/dL (, 9:14pm). 6. Acute hypoxic respiratory failure with O2 saturation 71% on room air (09/30/2024, 2:10am), now with O2 saturation 88-89% on 10 liters/minute O2 via oxymask (09/30/2024, 7:30am). 7. Acute hypercapnic respiratory failure with CO2 45 mmol/L (09/30/2024, 7:03am). 8. Acute kidney injury with admission creatinine 2.20 mg/dL (09/29/2024, 3:38pm). 9. Acute lactic acidosis with admission lactic acid #1 4.2 mmol/L (09/30/2024, 3:24pm). 10.Acute exacerbation of chronic systolic CHF with reduced LVEF 30%, normal RV systolic function, inability to assess LV diastolic function due to prior mitral valve repair (as reported on 06/08/2022 TTE, CARDS Dr. Olman Collins). 11.Acute type II NSTEMI with troponin #1 21.8 pg/mL (, 3:38pm) and troponin #2 22.9 pg/mL (, 5:12pm). The following medical issues are being addressed on 10/05/2024: 1. Acute ETOH intoxication with ETOH 143.3 mg/dL (09/29/2024, 5:12pm). Continue ETOH abstinence while in [facility]. 2. Acute ETOH withdrawal with last swig of whisky (09/29/2024, 6:00am). Continue telemetry, CIWA scale scoring with ativan prn, off precedex infusion (since 10/05/2024, 12:31pm infusion), off phenobarbital 32.5mg IV bid ( 5, 9:01pm; 10/04/2024, 8:53am; 10/05/2024, 8:33am), on phenobarbital 30mg PO bid x 5 doses (starting on 10/05/2024, 8:10pm), MVI, thiamine, and folate supplementation. 3. Acute hypokalemia with admission K 2.4 mmol/L (09/29/2024, 3:38pm). PERSISTENT s/p supplementation with KCl 40meq PO x 1 dose (09/29/2024, 6:15pm) with post-supplement K 3.2 mmol/L (09/30/2024, 7:03am) and current K 3.0 mmol/L (09/30/2024, 11:09am). Patient subsequently received KCl 10meq IV q1h x 6 bags (09/30/2024, 12:43pm, 12:44pm, 1:34pm). PERSISTENT with post-supplement K 3.4 mmol/L (10/01/2024, 8:43am). Patient subsequently received KCl 10meq IVv q1h x 4 bags (10/01/2024, 6:47pm). Acute hypokalemia RESOLVED with post-supplement K 3.8 mmol/L (10/02/2024, 4:53am), repeat K 3.5 mmol/L (10/03/2024, 4:27am), repeat K 3.8 mmol/L (10/04/2024, 4:32am), and current K 4.6 mmol/L (10/05/2024, 8:40am). I will check repeat K level in the 10/06/2024 am. Of note, etiology of acute hypokalemia was most probably due to chronic ETOH-mediated berta-uresis. 4. Acute hypomagnesemia with admission Mg 1.6 mg/dL (09/29/2024, 3:38pm). RESOLVED s/p supplement with magnesium sulfate 1g IV x 2 doses (09/29/2024, 6:13pm, 9:42pm) with post-supplement Mg 2.0 mg/dL (09/30/2024, 7:03am), repeat Mg 1.9 mg/dL (10/01/2024, 4:41am), repeat Mg 1.9 mg/dL (10/02/2024, 4:53am), repeat Mg 2.2 mg/dL (10/03/2024, 4:27am), repeat Mg 2.0 mg/dL (10/04/2024, 4:32am), and current Mg 2.0 mg/dL (10/05/2024, 8:40am). I will check repeat Mg level in the 10/06/2024 am. Of note, etiology of acute hypomagnesemia was most probably due to chronic ETOH-mediated magne-uresis. 5. Acute hypophosphatemia with admission PO4 2.0 mg/dL (, 9:14pm). RESOLVED. No KPO4 supplement given repeat, normal PO4 4.0 mg/dL (09/30/2024, 3:24pm), repeat PO4 3.5 mg/dL (10/01/2024, 4:41am), repeat PO4 4.0 mg/dL (10/02/2024, 4:53am), repeat PO4 2.9 mg/dL (10/03/2024, 4:27am). cf., repeat PO4 1.9 mg/dL (10/04/2024, 4:32am). Patient subsequently received KPO4 12 mmol IV x 1 dose (10/04/2024, 6:30am) with post-supplement PO4 2.0 mg/dL (10/04/2024, 9:50am). cf., current PO4 2.5 mg/dL (10/05/2024, 8:40am). Check repeat PO4 level in the 10/06/2024 am, and supplement to attain/maintain PO4 level > 2.5 mg/dL. 6. Acute hypoxic respiratory failure with O2 saturation 71% on room air (09/30/2024, 2:10am), followed by O2 saturation 88-89% on 10 liters/minute O2 via oxymask (09/30/2024, 7:30am), followed by O2 saturation 94% on High Flow oxygen @ 40 L/min, FIO2 = 0.45 (10/01/2024, 6:01pm), followed by O2 saturation 96% on High Flow oxygen @ 40 L/min, FIO2 = 0.40 (10/02/2024, 7:32am). RESOLVED with O2 saturation 99% on 4 L/min O2 via NC (10/02/2024, 12:51pm), O2 saturation 92% on 3 L/min O2 via NC (10/03/2024, 6:00am), O2 saturation 96% on room air (10/04/2024, 10:01am. Etiology of acute hypoxic respiratory failure remains unclear as patient remains afebrile with WBC remaining normal (cf., admission WBC 5.56, N56 L30 M12 E1 B1 (09/29/2024, 3:38pm) and repeat WBC 9.38, no differential (09/30/2024, 7:03am) and portable CXR (09/29/2024) negative for infiltrate/consolidation, effusion, cardiomegaly, pulmonary vascular congestion, or pneumothorax (by my review). Subsequently, I ordered procalcitonin (09/30/2024, 2:32pm), lactic acid (09/30/2024, 2:32pm), and portable CXR (09/30/2024, 2:33pm). Subsequently, procalcitonin was normal @ 0.10 ng/mL (09/30/2024, 3:24pm), lactic acid was elevated at 4.2 mmol/L (09/30/2024, 3:24pm), and portable CXR (09/30/2024, 2:33pm) revealed "Stable cardiac valve repair and pacemaker. Stable cardiomegaly with increased pulmonary vascular congestion. There is increased patchy opacity throughout the right lung and at the left lung base. No pleural effusion or pneumothorax." Hence, acute exace rbation of chronic systolic CHF with last recorded LVEF 30% (as noted on 06/08/2022, 1:13pm TTE, CARDS Dr. Olman Collins) may be contributing to patient's acute hypoxic respiratory failure. Subsequently, I ordered TTE for the 10/02/2024 am; still pending as of 10/05/2024, 8:30pm. In the interim, patient is NOT being started on lasix, but is restarting his home-scheduled metoprolol succinate XL 50mg PO qam, given BP 149/103 (10/05/2024, 8:03pm). Of final note, patient underwent direct laryngoscopy with subsequent video laryngoscopy (10/05/2024, 1:43pm, Critical Care Dr. Edgardo Millard)(performed to address patient's acute hypoxic respiratory failure; subsequent finding of "concretion leading to upper airway obstruction.") 7. Acute hypercapnic respiratory failure with CO2 45 mmol/L (09/30/2024, 7:03am) and CO2 35 mmol/L (10/01/2024, 4:41am), RESOLVED with CO2 29 mmol/L (10/02/2024, 4:53am). Etiology of of acute hypercapnic respiratory failure remains unclear in this patient who is still hyperventilating at: 29 breaths/minute (09/30/2024, 7:30am) 34 breaths/minute (09/30/2024, 1:03pm) 24 breaths/minute (10/01/2024, 8:00 am and 6:01pm) 22 breaths/minute (10/04/2024, 10:01am). 24 breaths/minute (10/05/2024, 8:03pm). Of note, patient underwent portable CXR (09/30/2024, 2:33pm) to check for evidence of COPD, bronchiectasis/fibrosis, and/or atelectasis, which can lead to hypercapnia, and none of which were observed on portable CXR (09/30/2024, 2:33pm). 8. Acute kidney injury with admission creatinine 2.20 mg/dL (09/29/2024, 3:38pm), RESOLVED. cf., admission creatinine 2.20 mg/dL (09/29/2024, 3:38pm). cf., repeat creatinine 1.90 mg/dL (09/30/2024, 7:03am). cf., repeat creatinine 1.88 mg/dL (10/01/2024, 4:41am). cf., repeat creatinine 1.91 mg/dL (10/02/2024, 4:53am). cf., repeat creatinine 1.58 mg/dL (10/03/2024, 4:27am). cf., repeat creatinine 1.24 mg/dL (10/04/2024, 4:32am). cf., current creatinine 1.10 mg/dL (10/05/2024, 8:40am). cf., baseline creatinine range, 0.95 mg/dL (04/25/2022, 6:21am) to 1.37 mg/dL (07/04/2024, 7:12am). Etiology of acute kidney injury remains unclear, but may be due to patient's home-scheduled sacubitril 49mg - valsartan 51mg PO bid, lasix 40mg PO qam, spironolactone 25mg PO daily, and lisinopril 20mg PO daily given the potential for any/all of these agents to cause further renal embarrassment. Hence, I have opted to hold OFF patient's home-scheduled sacubitril 49mg - valsartan 51mg PO bid, lasix 40mg PO qam, spironolactone 25mg PO daily, and lisinopril 20mg PO daily. Observe. 9. Acute lactic acidosis with admission lactic acid #1 4.2 mmol/L (09/30/2024, 3:24pm), RESOLVED. cf., lactic acid # 2 4.3 mmol/L (09/30/2024, 6:18pm). cf., lactic acid # 3 3.6 mmol/L (09/30/2024, 8:00pm). cf., lactic acid # 4 3.3 mmol/L (10/01/2024, 4:41am). cf., lactic acid # 5 5.7 mmol/L (10/01/2024, 9:04am). cf., lactic acid # 6 2.3 mmol/L (10/01/2024, 7:07pm). cf., lactic acid # 7 1.4 mmol/L (10/02/2024, 4:53am). cf., lactic acid # 8 2.9 mmol/L (10/03/2024, 9:38am). cf., lactic acid # 9 1.5 mmol/L (10/04/2024, 4:32am). cf., lactic acid #10 5.8 mmol/L (10/05/2024, 8:40am). cf., lactic acid #11 1.5 mmol/L (10/05/2024, 12:41pm). Etiology of acute lactic acidosis remains unclear, but is probably due to a combination of (a) acute dehydration from chronic ETOH-mediated diuresis and (b) [id number]-hf-[id number] transaminitis, which in turn, is due to chronic alcoholic hepatitis. In addition, I surmise that the propylene glycol solvent used in the phenobarbital IV formulation @ [facility] contributed to increased formation of lactic acid. Now that patient is off phenobarbital 32.5mg IV bid (10/03/2024, 9:01pm; 10/04/2024, 8:53am; 10/05/2024, 8:33am), and on phenobarbital 30mg PO bid x 5 doses (starting on 10/05/2024, 8:10pm), I do not expect recurrence of acute lactic acidosis. cf., AST 58 U/L, ALT 25 U/L, ALK PHOS 168 U/L (09/29/2024, 3:38pm). cf., AST 45 U/L, ALT 22 U/L, ALK PHOS 164 U/L (09/30/2024, 7:03am). cf., AST 41 U/L, ALT 18 U/L, ALK PHOS 153 U/L (10/01/2024, 4:41am). cf., baseline AST range, 18 - 33 U/L (10/22/2020 - 07/04/2024), ALT range, 12-38 U/L (10/22/2020 - 07/04/2024), ALK PHOS range, 110-124 U/L (03/09/2022 - 07/04/2024). To address (a), patient received 1 liter of 0.9% NS @ 999 mL/hr (09/29/2024, 6:16pm), followed by 1 liter of lactated Ringers @ 125 mL/hr (09/29/2024, 9:42pm) in [facility] ER. Patient is being held off further IV fluid rehydration therapy in order to avoid further cardio-pulmonary embarrassment. 10. Acute exacerbation of chronic systolic CHF with reduced LVEF 30%, normal RV systolic function, inability to assess LV diastolic function due to prior mitral valve repair (as reported on 06/08/2022 TTE, CARDS Dr. Olman Collins). s/p AICD. Restart home-scheduled metoprolol succinate 50mg PO qam with a first dose now on 10/05/2024, 9:06pm. Hold OFF home-scheduled sacubitril 49mg - valsartan 51mg PO bid, lasix 40mg PO qam, spironolactone 25mg PO daily, and lisinopril 20mg PO daily, given the potential for any/all of these agents to cause further renal embarrassment. cf., admission creatinine 2.20 mg/dL (09/29/2024, 3:38pm). cf., repeat creatinine 1.90 mg/dL (09/30/2024, 7:03am). cf., repeat creatinine 1.88 mg/dL (10/01/2024, 4:41am). cf., repeat creatinine 1.91 mg/dL (10/02/2024, 4:53am). cf., repeat creatinine 1.58 mg/dL (10/03/2024, 4:27am). cf., repeat creatinine 1.24 mg/dL (10/04/2024, 4:32am). cf., current creatinine 1.10 mg/dL (10/05/2024, 8:40am). cf., baseline creatinine range, 0.95 mg/dL (04/25/2022, 6:21am) to 1.37 mg/dL (07/04/2024, 7:12am). 11. Acute type II NSTEMI with troponin #1 21.8 pg/mL (, 3:38pm) and troponin #2 22.9 pg/mL (, 5:12pm). Etiology of nominally elevated troponin levels remains unclear, but is most probably due to demand ischemia, which in turn, is due to (a) acute hypoxic respiratory failure, which in turn, is due to (b) acute exacerbation of chronic systolic CHF with reduced LVEF 30%, normal RV systolic function, inability to assess LV diastolic function due to prior mitral valve repair (as reported on 06/08/2022 TTE, CARDS Dr. Olman Collins). Hence, I have opted to observe this laboratory anomaly at this time. 12. Disposition. Code status, FULL CODE @ home. ALS as required. Condition of patient remains tenuous, if not terminal, given the severity of patient's medical problems noted above. To this end, I called and spoke with the patient's daughter, Ms. Carla Tidwell ( ) on 10/05/2024, 7:44pm, and she concurs with the assessment and plan as described above. Admission and Anticipated Discharge Date Admission Date: September 29, 2024 Subjective Unavailable as patient has transitioned from a lethargic, obtunded, and non- verbal state, on precedex infusion, starting at 0.4 ug/kg/hr (10/01/2024, 3:57am), stopping after 10/05/2024, 12:31pm infusion @ 1 ug/kg/hr, to a bellicose and belligerent state, on phenobarbital 32.5mg IV bid, starting on 10/03/2024, 9:01pm, stopping on 10/05/2024, 8:33am, and now replaced with phenobarbital 30mg PO bid, starting on 10/05/2024, 8:10pm. Review of Systems Constitutional: Unavailable as patient has transitioned from a lethargic, obtunded, and non- verbal state, on precedex infusion, starting at 0.4 ug/kg/hr (10/01/2024, 3:57am), stopping after 10/05/2024, 12:31pm infusion @ 1 ug/kg/hr, to a bellicose and belligerent state, on phenobarbital 32.5mg IV bid, starting on 10/03/2024, 9:01pm, stopping on 10/05/2024, 8:33am, and now replaced with phenobarbital 30mg PO bid, starting on 10/05/2024, 8:10pm. Physical Exam Constitutional: General: Belligerent and bellicose. Talks complete nonsense. HEENT: Normocephalic, atraumatic. Pupils equally round and reactive to light. No nystagmus, gaze paresis, anisocoria, miosis, mydriasis, hyphema, scleral injection, conjunctivitis, or pterygium. No otorrhea. No pharyngeal erythema, edema, or discharge. NG tube with [employer] HN 1.2 jovanni @ 60 mL/hr. Neck: Supple, no stridor, bruit, goiter, or hepato-jugular reflux. Jugular venous pressure is estimated to be 3 cm above the sternal angle of [place], which in turn, is 5 cm above the level of the right atrium; with jugular venous pressure estimated to be 8 cm, then, there is no jugular venous distention on 10/05/2024. Lymphatics: No cervical (anterior/posterior), supraclavicular, infraclavicular, axillary, epitrochlear, or inguinal adenopathy. Chest: Symmetric rise and fall with respirations. Non-tender to palpation. s/p direct laryngoscopy with subsequent video laryngoscopy (10/05/2024, 1:43pm, Critical Care Dr. Edgardo Millard)(performed to address patient's acute hypoxic respiratory failure; subsequent finding of "concretion leading to upper airway obstruction.") Lungs: Clear to auscultation and percussion. No audible expiratory wheeze, egophony, pectoriloquy, increase in tactile fremitus, or flatness/dullness to percussion at the bases. Heart: Increased rate. Regular rhythm. S1 and S2 noted. No S3 or S4 summation gallop. No tripartite friction rub. Grade II/ early systolic murmur @ LLSB without radiation to the carotids, axilla, or back, and which remains invariant in regards to the respiratory cycle. Abdomen: Soft, non-tender, non-distended. No rebound, guarding, Logan's sign, or organomegaly. Bowel sounds auscultated in all 4 quadrants. Extremities: No clubbing, cyanosis, or edema in upper extremities or lower extremities bilaterally. 2+ pedal pulses bilaterally. Skin: No decubitus ulcer or enanthem. Genito-urinary: No urethral discharge. + poole catheter with urine output 0.80 mL/kg/hr (10/04/2024, 8:49pm to 10/05/2024, 8:49pm) Neurology: No myoclonus, tremors, or tics. Psychiatry: No homicidal ideation. No suicidal ideation. No flat affect; smiles appropriately. Results & Data Results & Data Vital Signs (Past 12 Hours) Vital Signs Temp Pulse Pulse Resp BP BP Pulse Ox 10/05/24 19:22 105 H 126/91 10/05/24 18:44 127 H 128/95 10/05/24 18:03 128 H 22 100 10/05/24 18:00 139/97 10/05/24 17:28 36.8 C 127 H 22 147/107 H 99 10/05/24 17:06 124 H 24 100 10/05/24 17:00 146/90 H 10/05/24 16:19 37.2 C 124 H 24 153/111 H 100 10/05/24 16:19 153/111 H 10/05/24 16:18 129 H 22 99 10/05/24 16:00 134 H 28 H 96 10/05/24 16:00 148/99 H 10/05/24 16:00 148/99 H 10/05/24 15:03 121 H 31 H 100 10/05/24 15:00 144/109 H 10/05/24 14:09 126 H 17 98 10/05/24 14:00 36.8 C 124 H 22 150/104 H 100 10/05/24 13:03 125 H 28 H 98 10/05/24 13:02 155/127 H 10/05/24 13:02 155/127 H 10/05/24 13:00 116 H 25 H 100 10/05/24 12:26 139/88 10/05/24 12:00 128 H 35 H 94 10/05/24 11:41 36.8 C 10/05/24 11:39 145/99 H 10/05/24 11:30 103 H 24 100 10/05/24 10:15 148/100 H 10/05/24 10:06 119 H 20 98 10/05/24 09:03 99 H 22 97 10/05/24 09:01 149/109 H 10/05/24 08:48 98 H 18 100 O2 Del Method 10/05/24 19:22 10/05/24 18:44 10/05/24 18:03 10/05/24 18:00 10/05/24 17:28 Room Air 10/05/24 17:06 10/05/24 17:00 10/05/24 16:19 Room Air 10/05/24 16:19 10/05/24 16:18 10/05/24 16:00 10/05/24 16:00 10/05/24 16:00 10/05/24 15:03 10/05/24 15:00 10/05/24 14:09 10/05/24 14:00 Room Air 10/05/24 13:03 10/05/24 13:02 10/05/24 13:02 10/05/24 13:00 10/05/24 12:26 10/05/24 12:00 10/05/24 11:41 10/05/24 11:39 10/05/24 11:30 10/05/24 10:15 10/05/24 10:06 Room Air 10/05/24 09:03 10/05/24 09:01 10/05/24 08:48 Laboratory Results Lactic acid 5.8 mmol/L (10/05/2024, 8:40am). Lactic acid 1.5 mmol/L (10/05/2024, 12:41pm). PG Care Time/CCT Total # of Minutes Spent Total Time Spent with Patient: Total time spent is greater than 50% in coordination of care (as documented) at patient's floor/unit and/or counseling patient: Coding Level of Care Code 25704 SUB INP/OBS CARE 50MIN Diagnoses Alcohol abuse F10.10 Electrolyte abnormality E87.8 Chronic systolic CHF (congestive heart failure) I50.22 Depression with anxiety F41.8 Hypertension I10 Acute alcohol intoxication delirium with moderate or severe use disorder F10.221
[2024-10-05] MEDS: METOPROLOL SUCC 50MG EXT REL TAB PO STA (21:12)
[2024-10-05] MEDS: METOPROLOL TARTRATE 1 MG/ML VIAL IV SCH (21:30)
[2024-10-06 04:33] LABS: Hematocrit (blood only) 33.4 % (42.0-52.0); Hemoglobin 10.7 g/dl (14.0-18.0); Mean Corpuscular Hemoglobin 34.7 pg (25.0-34.0); Mean Corpuscular Volume 108.4 fL (80.0-100.0); Platelet Count 258 K/uL (130-400); RDW Standard Deviation 62.4 fL (36.4-46.3); Red Blood Count 3.08 M/uL (4.70-6.10); White Blood Count 12.35 K/ul (4.8-10.8)
[2024-10-06 04:48] LABS: Anion Gap 6.0 (3-11); Blood Urea Nitrogen 24.0 mg/dl (6-23); Calcium 8.6 mg/dl (8.6-10.3); Carbon Dioxide 22.0 mmol/L (21-32); Chloride 107.0 mmol/L (98-107); Creatinine Clr Calc Pharmacy 64.4 ml/min; Glucose 97.0 mg/dl (70-99(Fasting)); Magnesium 1.8 mg/dl (1.7-2.4); Potassium 4.6 mmol/L (3.5-5.1); Sodium 135.0 mmol/L (136-145)
[2024-10-06 04:57] LABS: Immature Granulocytes # (auto) 0.63 K/uL (0.01-0.20); Immature Granulocytes % (auto) 5.1 %; Polychromasia 1+
[2024-10-06 04:59] LABS: ANTI-Xa, UFH(UnfractionatedHep 0.39 IU/ml (0.3-0.7)
--- NOTE | 2024-10-06 07:15 | Critical Care Progress Note ---
Date of Service October 06, 2024 Assessment & Plan (1) Acute alcohol intoxication: Plan: Reason Critically Ill: 69-year-old male with acute agitated delirium PLAN: Neuro: Acute agitated delirium: Continued improvement - Previously on ketamine and Precedex: Discontinue Precedex - Had received both Haldol and olanzapine during the course of his hospital admission complicated by prolonged QT - Continue phenobarbital taper to completion over next 2 days - I am hopeful that we have by enlarge overcome the physiologic concerns of alcohol withdraw and are currently by enlarge managing multifactorial delirium - He was evaluated by speech and swallow, had adequate swallowing reflex so diet has been ordered and NG tube was discontinued - Hopeful initiating oral nutrition will be significant in reduction of delirium - Discontinuing as needed phenobarbital transitioning back to alcohol withdrawal severity scoring and symptom triggered medication ammonia level: Has remained normal limits Patient's treatment course has been clinically consistent with alcohol withdraw; this particular case appears to be rather prolonged however not unheard of: There are several case reports of persistent delirium tremens extending beyond 1 week into 3 weeks and sometimes longer: https://pmc.ncbi.nlm.nih.gov/articles/PAJ1126017/ - [facility] cardiology notes from May indicate patient has been drinking at least 10 whiskey shots daily since that time - Patient has been trialed on several different sedatives as were patients with persistent DTs, at this point I feel adjunctive Depakote therapy may be helpful to decrease total benzodiazepine dose. We are likely approaching limits of phenobarbital administration and given he has not had an elevated ammonia I feel Depakote is the safest adjunctive therapy prior to instituting additional scheduled benzodiazepines - Proceeding with higher and load: Almost 40 mg/kg IV infusion x 1 max dose 3 g - Patient already on intensive monitoring and end- tidal CO2, added every 48 hour LFTs to labs starting Monday Resp: Mild hypoxia has completely resolved - He is saturating 100% on room air with no nasal trumpet nor supplemental oxygen Acute airway obstruction on October 04 necessitating physical removal with Archie forceps - Related to oral and nasal mucous, patient frequently clears throat CV: History nonischemic cardiomyopathy - metoprolol succinate 50 mg mg daily Prolonged QT - Avoid antipsychotics for sedatives Echocardiogram pending: If no significant valvular abnormalities would consider alpha blockade and/or versus clonidine to augment blood pressure control and alcohol withdrawal symptoms - Considering prazosin 1 mg every 8 hours versus clonidine Fluids/Renal: Acute kidney injury: Resolved - Discontinued Serrano catheter and replaced with condom cath again with goals to decrease interventions hopefully decreasing delirium triggers Hypokalemia: Resolved Mild lactic acid acidosis: Resolved - Received 500 mg thiamine IVx3, now 100 mg daily - There was concern of a lactic acid level being elevated today, this is since resolved, I do not believe the patient is receiving significant amounts of propylene glycol to cause a lactic acidosis as his osmolality is also within normal limits. Certainly patient may be able to induce lactic acidosis during episodes of extreme agitation however venous blood gas and lactic acid are also normal at this time Mixed metabolic acidosis: Resolved ID: Monitor fever curve GI/Nutrition: Mild transaminitis - Elevated AST - Acute hepatitis panel: Negative Patient combative spitting at staff, unwilling to follow commands to take meds, therefore I think it is reasonable to replace the course safe feeding tube to allow enteral access for medications and ongoing nutrition Heme: Anemia - Appropriate reticulocytosis, appears to be anemia related to alcohol consumption, folate B12 within acceptable range DVT prophylaxis: Heparin infusion - Presumptive history of prior DVT given calcification of thrombus in mid right femoral vein: Review of chart demonstrates orthopedic injury history to that affected leg - Right upper extremity DVT, history of recent IV starts. Most consistent with provoked DVT, likely needs 3 months of anticoagulation Endocrine: ICU hyperglycemia protocol Vascular access: After losing several IVs in the noted right upper extremity DVT we have placed a midline in the left upper extremity Code Status: Full code Disposition: ICU (2) Acute alcohol intoxication delirium with moderate or severe use disorder: (3) Electrolyte abnormality: (4) Fracture of right tibial plateau: (5) Chronic systolic CHF (congestive heart failure): (6) S/P ICD (internal cardiac defibrillator) procedure: (7) Nonischemic cardiomyopathy: Admission and Anticipated Discharge Date Admission Date: September 29, 2024 Supervising Physician Co-Signing Physician Notes I have personally spent 70 minutes of critical care time in the direct management of this patient. This is a life/limb threatening event. This includes time spent evaluating patient, direct bedside care, chart review, placing orders, interpretation of diagnostic studies, discussion with consultants, patient, and/or family members regarding treatment decisions, as well as other required patient management activities. This time is exclusive of all separately billable procedures, and teaching time and separate from and in addition to any other critical care service time. Subjective Attempts to normalize patient yesterday. He has received multiple doses of Ativan via symptom triggered scoring which largely resolves around his heart rate and blood pressure. While mental status has significantly improved it is mildly worse compared to yesterday. Physical Exam Physical Exam: General: Continued use of vulgarities and engaging in sexual prepositioning with nursing staff. Redirectable at times however very distractible and tangential. Confrontational requiring physical restraints. Skin: Warm, dry, Head: Atraumatic Ears, nose, mouth and throat: airway patent Cardiovascular: Normal peripheral perfusion Respiratory: no respiratory distress Gastrointestinal: Non distended Musculoskeletal: No deformity Results & Data Results & Data Vital Signs (Past 12 Hours) Vital Signs Temp Pulse Resp BP Pulse Ox O2 Del Method 10/06/24 07:05 Room Air 10/06/24 06:09 108 H 22 93 10/06/24 05:45 138/98 10/06/24 05:45 102 H 138/98 10/06/24 05:30 110 H 37 H 99 10/06/24 05:22 122 H 149/113 H 10/06/24 05:18 123 H 42 H 98 10/06/24 05:00 149/113 H 10/06/24 05:00 149/113 H 10/06/24 04:54 122 H 43 H 98 10/06/24 04:00 119 H 25 H 93 10/06/24 03:06 117 H 30 H 100 10/06/24 03:00 150/103 H 10/06/24 02:54 118 H 18 100 10/06/24 02:35 36.8 C 10/06/24 02:15 110 H 33 H 98 10/06/24 02:00 139/94 10/06/24 02:00 139/94 10/06/24 01:51 105 H 26 H 99 10/06/24 01:26 100 H 29 H 96 10/06/24 01:24 135/90 10/06/24 01:23 100 H 135/90 10/06/24 01:12 121 H 144/101 H 10/06/24 01:00 144/101 H 10/06/24 01:00 144/101 H 10/06/24 00:35 120 H 20 100 10/06/24 00:00 148/104 H 10/06/24 00:00 148/104 H 10/06/24 00:00 148/104 H 10/06/24 00:00 148/104 H 10/06/24 00:00 118 H 20 100 10/05/24 23:18 118 H 23 100 10/05/24 23:00 139/102 H 10/05/24 22:54 115 H 22 100 10/05/24 22:06 109 H 146/94 H 10/05/24 22:05 109 H 23 96 10/05/24 21:30 120 H 156/96 H 10/05/24 21:26 122 H 25 H 100 10/05/24 21:00 36.8 C 10/05/24 21:00 156/98 H 10/05/24 21:00 156/98 H 10/05/24 20:56 122 H 36 H 93 10/05/24 20:03 116 H 24 100 10/05/24 20:00 149/103 H 10/05/24 20:00 149/103 H 10/05/24 19:57 115 H 31 H 98 10/05/24 19:22 105 H 126/91 Critical Care Results & Data Vital Signs (Past 12 Hours) Vital Signs Temp Pulse Resp BP Pulse Ox O2 Del Method 10/06/24 07:05 Room Air 10/06/24 06:09 108 H 22 93 10/06/24 05:45 138/98 10/06/24 05:45 102 H 138/98 10/06/24 05:30 110 H 37 H 99 10/06/24 05:22 122 H 149/113 H 10/06/24 05:18 123 H 42 H 98 10/06/24 05:00 149/113 H 10/06/24 05:00 149/113 H 10/06/24 04:54 122 H 43 H 98 10/06/24 04:00 119 H 25 H 93 10/06/24 03:06 117 H 30 H 100 10/06/24 03:00 150/103 H 10/06/24 02:54 118 H 18 100 10/06/24 02:35 36.8 C 10/06/24 02:15 110 H 33 H 98 10/06/24 02:00 139/94 10/06/24 02:00 139/94 10/06/24 01:51 105 H 26 H 99 10/06/24 01:26 100 H 29 H 96 10/06/24 01:24 135/90 10/06/24 01:23 100 H 135/90 10/06/24 01:12 121 H 144/101 H 10/06/24 01:00 144/101 H 10/06/24 01:00 144/101 H 10/06/24 00:35 120 H 20 100 10/06/24 00:00 148/104 H 10/06/24 00:00 148/104 H 10/06/24 00:00 148/104 H 10/06/24 00:00 148/104 H 10/06/24 00:00 118 H 20 100 10/05/24 23:18 118 H 23 100 10/05/24 23:00 139/102 H 10/05/24 22:54 115 H 22 100 10/05/24 22:06 109 H 146/94 H 10/05/24 22:05 109 H 23 96 10/05/24 21:30 120 H 156/96 H 10/05/24 21:26 122 H 25 H 100 10/05/24 21:00 36.8 C 10/05/24 21:00 156/98 H 10/05/24 21:00 156/98 H 10/05/24 20:56 122 H 36 H 93 10/05/24 20:03 116 H 24 100 10/05/24 20:00 149/103 H 10/05/24 20:00 149/103 H 10/05/24 19:57 115 H 31 H 98 10/05/24 19:22 105 H 126/91 Lab & Micro Results (Past 24 Hours) RBC 3.08 M/uL (4.70-6.10) L 10/06/24 WBC 12.35 K/ul (4.8-10.8) H 10/06/24 Hgb 10.7 g/dl (14.0-18.0) L 10/06/24 Hct 33.4 % (42.0-52.0) L 10/06/24 MCV 108.4 fL (80.0-100.0) H 10/06/24 MCH 34.7 pg (25.0-34.0) H 10/06/24 MCHC 32.0 g/dL (32.0-36.0) 10/06/24 RDW Standard Deviation 62.4 fL (36.4-46.3) H 10/06/24 RDW Coefficient of Variation 15.6 % (11.5-14.5) H 10/06/24 Plt Count 258 K/uL (130-400) 10/06/24 MPV 11.0 fL (9.4-12.4) 10/06/24 Nucleated Red Blood Cells % (auto) 0.2 % 10/06 Nucleated RBC Absolute Count (auto) 0.02 K/uL (0.00-0.12) 0 10/06/24 Neutrophils (%) (Auto) 67.6 % 10/06/24 Lymphocytes (%) (Auto) 13.4 % 10/06/24 Monocytes # (Auto) 1.54 K/uL (0.11-0.59) H 10/06/24 Eosinophils # (Auto) 0.11 K/uL (0.00-0.50) 10/06/24 Immature Granulocyte % (Auto) 5.1 % 10/06/24 Neutrophils # (Auto) 8.36 K/uL (1.40-6.50) H 10/06/24 Lymphocytes # (Auto) 1.65 K/uL (1.20-3.40) 10/06/24 Monocytes # (Auto) 1.54 K/uL (0.11-0.59) H 10/06/24 Eosinophils # (Auto) 0.11 K/uL (0.00-0.50) 10/06/24 Basophils # (Auto) 0.06 K/uL (0.00-0.20) 10/06/24 Immature Granulocyte # (Auto) 0.63 K/uL (0.01-0.20) H 10/06 Polychromasia 1+ 10/06/24 Na 135 mmol/L (136-145) L 10/06/24 K 4.6 mmol/L (3.5-5.1) 10/06/24 Cl 107 mmol/L (98-107) 10/06/24 CO2 22 mmol/L (21-32) 10/06/24 Anion Gap 6 (3-11) 10/06/24 BUN 24 mg/dl (6-23) H 10/06/24 Creatinine 1.17 mg/dl (0.6-1.4) 10/06/24 BUN/Creatinine Ratio 20.5 (10-20) H 10/06/24 Glu 97 mg/dl (70-99(Fasting)) 10/06/24 Ca 8.6 mg/dl (8.6-10.3) 10/06/24 Phosphorus Level 2.3 mg/dl (2.5-4.9) L 10/06/24 Mg 1.8 mg/dl (1.7-2.4) 10/06/24 04:16 Calcium Level 8.6 mg/dl (8.6-10.3) 10/06/24 04:16 Prothromb Time International Ratio 1.0 (0.9-1.1) 10/05/24 09:3 4 Venous Blood pH 7.37 (7.36-7.41) 10/05/24 12:41 Venous Blood Partial Pressure CO2 38 mmHg (38-50) 10/05/24 12:4 1 Venous Blood Partial Pressure O2 33 mmHg 10/05/24 12:41 Venous Blood HCO3 22 mmol/L 10/05/24 12:41 Venous Blood Base Excess -2.9 mEq/L 10/05/24 12:41 Venous Blood Oxygen Saturation < 60.0 % 10/05/24 12:41 I & O Totals 24 Hours 10/05/24 10/06/24 10/07/24 06:59 06:59 06:59 Intake Total 2113.297 / 2375.830 914.077 / 914.077 Output Total 1685 / 1685 1075 / 1075 Balance 428.297 / 690.830 -160.923 / -160.923 Cumulative 09/29/24 14:46 thru 10/06/24 06:51 Intake Total 35901.5945 Output Total 7423 Balance 4221.5945 RT Ventilator Mngmt (Last Documented) Ventilator Ordered Settings Respiratory Rate 22 10/06/24 06 :09 Fraction of Inspired Oxygen 70 10/04/24 20:00 Ventilator - PT Measurements Respiratory Rate 22 End-Tidal CO2 5 Coding Level of Care Code 87365 CRITICAL CARE 1ST 30-74M Diagnoses Acute alcoholic intoxication with delirium F10.921 Complication of substance-induced condition: with delirium Acute alcohol intoxication delirium with moderate or severe use disorder F10.221 Electrolyte abnormality E87.8 Closed fracture of right tibial plateau, sequela S82.141S Encounter type: sequela Fracture type: closed Chronic systolic CHF (congestive heart failure) I50.22 S/P ICD (internal cardiac defibrillator) procedure Z95.810 Nonischemic cardiomyopathy I42.8 (1) Acute alcohol intoxication Complication of substance-induced condition: with delirium Qualified Code(s): F10.921 - Alcohol use, unspecified with intoxication delirium (4) Fracture of right tibial plateau Encounter type: sequela Fracture type: closed Qualified Code(s): S82.141S - Displaced bicondylar fracture of right tibia, sequela
[2024-10-06] MEDS ORDERED: POTASSIUM PHOS 3 MMOL/1 ML INFUSION IV STA (08:04)
[2024-10-06] MEDS ORDERED: DEXTROSE 5% IV ONE (08:49)
[2024-10-06] MEDS ORDERED: VALPROATE SOD IV ONE (08:49)
[2024-10-06] MEDS: SODIUM PHOSPHATE 24 MMOL in SODIUM CHLORIDE 0.9% 500 ML IV ONE (09:16)
[2024-10-06] MEDS: DEXTROSE 5% IV STA (09:23)
[2024-10-06] MEDS: VALPROATE SOD IV STA (09:23)
[2024-10-06 09:26] LABS: Chlamydia pneumoniae PCR Not Detected (NotDetected); Coronavirus 229E PCR Not Detected (NotDetected); Coronavirus CoV-2 (COVID19)PCR Not Detected (NotDetected); Coronavirus HKU1 PCR Not Detected (NotDetected); Coronavirus NL63 PCR Not Detected (NotDetected); Coronavirus OC43PCR Not Detected (NotDetected); Human Metapneumovirus PCR Not Detected (NotDetected); Parainfluenza Virus 1 PCR Not Detected (NotDetected); Parainfluenza Virus 2 PCR Not Detected (NotDetected); Parainfluenza Virus 3 PCR Not Detected (NotDetected); Parainfluenza Virus 4 PCR Not Detected (NotDetected); Respiratory Syncytial VirusPCR Not Detected (NotDetected); Rhinovirus/Enterovirus PCR Not Detected (NotDetected)
[2024-10-06] MEDS: diazePAM 5 MG/ML 10ML VIAL IV STA (09:51)
[2024-10-06] MEDS ORDERED: [UNRECOGNIZED DRUG - REMARK] ONE (10:02)
[2024-10-06] MEDS: METOPROLOL SUCC 50MG EXT REL TAB PO SCH (10:07)
[2024-10-06] MEDS ORDERED: GABAPENTIN 1200MG ALCOHOL WITHDRAWAL LOAD PO STA (10:25)
--- NOTE | 2024-10-06 10:33 | XRay Report ---
KUB CLINICAL HISTORY: coresafe COMPARISON STUDY: CT of the abdomen and pelvis September 29, 2024. KUB October 02, 2024. FINDINGS: Median sternotomy wires, prosthetic mitral valve and pacer/AICD lead are incidentally noted . Left basilar airspace opacity is present. There is a small left pleural effusion. Tip of feeding tu be projects over the pylorus. Visualized bowel gas pattern is normal. IMPRESSION: Tip of feeding tube projects over the pylorus. ACT 112: Negative or not required by law. Electronically signed by: Steven Grewal M.D. 10/06/2024 10:31 AM
[2024-10-06] MEDS ORDERED: ROCURONIUM BROMIDE 10 MG/ML 5 ML VIAL IV ONE (11:14)
[2024-10-06] MEDS ORDERED: KETAMINE HCL INJ 50 MG/ML 10 ML VIAL IV ONE (11:14)
[2024-10-06] MEDS: THIAMINE HCL 100 MG TAB PO SCH (11:34)
[2024-10-06] MEDS: GABAPENTIN 600 MG TAB PO ONE (11:34)
[2024-10-06] MEDS: PRAZOSIN HCL 1 MG CAP PO SCH (11:34)
[2024-10-06] MEDS: FIBERSOURCE HN 1.2 CAL 1000 ML BAG NG SCH (11:35)
--- NOTE | 2024-10-06 13:08 | Electrocardiogram Report ---
Test Reason : Blood Pressure : */* mmHG Vent. Rate : 132 BPM Atrial Rate : 132 BPM P-R Int : 156 ms QRS Dur : 86 ms QT Int : 376 ms P-R-T Axes : 64 72 69 degrees QTcB Int : 557 ms Poor data quality, interpretation may be adversely affected Sinus tachycardia with occasional Premature ventricular complexes Abnormal ECG When compared with ECG of 03-Oct-2024 09:45, Premature ventricular complexes are now Present Vent. rate has increased by 54 bpm T wave inversion less evident in Anterolateral leads Confirmed by Saad Cruz ([id number]) on 10/06/2024 1:07:42 PM Referred By: REFERRED SELF Confirmed By: Saad Cruz
[2024-10-06] MEDS ORDERED: STAT IV Infusion **Titration per Protocol STA ×3 (14:08→14:11)
[2024-10-06] MEDS ORDERED: PROPOFOL BOLUS FROM BAG IV PRN (14:09)
--- NOTE | 2024-10-06 14:09 | Procedure Note ---
Procedure Note Date of Service October 06, 2024 Note Called to room 104 in the ICU with the patient in acute respiratory distress by nursing staff. Arrived at bedside and hospitalist, nursing, respiratory therapy present. Patient unresponsive being bagged. Patient heavily desaturated as history reported of alcohol withdrawal of these hospitalized for as well as airway obstruction. Patient saturating in the mid 80s to low 90s. Intubated as below without complication. Some upper airway wall oropharyngeal creamy nature noted without large obstructive masses noted. Left in the care of hospitalist team as well as pulmonary who is now at bedside. Critical care attending was updated. Intubation performed by myself Indication: acute respiratory failure. The patient was on 100% oxygen via BVM prior to the procedure. Patient unresponsive with nursing and respiratory at bedside. Suction, airway equipment, RSI drugs, respiratory equipment, and appropriate personnel were prepared prior to the initiation of the procedure. Induction was performed with 150 mg of ketamine and 80 mg of rocuronium. After observing the clinical benefit of the medications, the airway was easily visualized utilizing a S3 glide scope. Poor dentition noted with a generous sized tongue. Some creamy oropharyngeal secretions noted but no large obstructive mass. A 8.0 size ETT tube was placed atraumatically to 24 cm using standard technique. The cuff inflated without signs of malfunction. There were bilateral breath sounds, positive colormetric change in epigastric sounds. Postintubation x-ray was obtained. No apparent complications. Coding
[2024-10-06] MEDS ORDERED: fentaNYL citrate 2,500 MCG/250 ML BAG IV SCH (14:15)
--- NOTE | 2024-10-06 14:20 | Procedure Note ---
Procedure Note Date of Service October 06, 2024 PREOPERATIVE DIAGNOSIS: Mucous plugging/aspiration needing intubation POSTOPERATIVE DIAGNOSIS: Clear airways PROCEDURE PERFORMED: Flexible fiberoptic bronchoscopy COMPLICATIONS: None. INDICATION: Rule out mucous plugging PROCEDURE: Emergent consent was applied, the patient intubated in the ICU. The patient had appropriate oxygen, blood pressure, heart rate, and respiratory rate monitoring applied and monitored continuously throughout the procedure. Patient was sedated with propofol and fentanyl. He was still under the effect of rocuronium which he got for intubation Bronchoscope was advanced through ETT he trachea appeared normal.The bronchoscope was then advanced through the joyce, which was sharp. The scope was then advanced into the right main stem and each segment, subsegement in the right upper lobe, right middle lobe and right lower lobe were visualized. There was minimal amount of clear secretion which was suctioned out there were no other findings including evidence of mass, anatomic distortions, or hemorrhage. The bronchoscope was subsequently withdrawn and advanced into the left mainstem. Again, each segment and subsegment was well visualized. No specific masses or other lesions were identified throughout the tracheobronchial tree on the left. Minimal amount of clear secretion which was suctioned out The bronchoscope was then withdrawn to the mainstem. The area was suctioned clear. The bronchoscope was then withdrawn. The patient tolerated the procedure well without evidence of desaturation or complications. Estimated blood loss: None Recommendations: Etiology for hypoxia was likely mucous plugging above the vocal cords as the bronchoscopy did not show any signs of mucous plugging in either of the segments or subsegments. Follow-up chest x-ray Please note the above document was generated using voice recognition software. It may contain grammatical, syntax or spelling errors.Any formal questions or concerns about the content, text or information contained within the body of this dictation should be directly addressed to the provider for clarification. [facility] Procedure Codes (Charges) Pulmonary/Thoracic Procedure 1: Pulmonary and Thoracic: 33560 Dx bronchoscopy/BAL Coding CPT Codes Pulmonary/Thoracic - Pulmonary and Thoracic: 29778 Dx bronchoscopy/BAL ([id number]) Additional Codes Date of Service (PG.SURGERY)
[2024-10-06] MEDS: fentaNYL citrate 2,500 MCG/250 ML BAG IV SCH (14:21)
[2024-10-06] MEDS: NOREPINEPHRINE/D5W 4 MG/250 ML PLCT IV SCH (14:22)
[2024-10-06] MEDS: MIDAZOLAM HCL 125 MG/250 ML BAG IV SCH (14:30)
[2024-10-06] MEDS: RAPID SEQUENCE INDUCTION BAG ONE (14:35)
[2024-10-06] MEDS: fentaNYL citrate 2,500 MCG/250 ML BAG IV ONE (14:35)
[2024-10-06] MEDS: PROPOFOL IV EMULSION 10 MG/ML 100 ML VIAL IV ONE (14:35)
[2024-10-06] MEDS: NOREPINEPHRINE/D5W 4 MG/250 ML IV ONE (14:35)
[2024-10-06] MEDS ORDERED: Nursing to Pharmacy Communication SCH ×2 (14:45→19:45)
--- NOTE | 2024-10-06 14:56 | XRay Report ---
Exam: Chest one view portable Reason for exam: Intubation Previous study: 10/04/2024 FINDINGS: Since the previous study, endotracheal tube is been inserted with the tip proximally 4.5 cm above the joyce. Right jugular central line, left-sided pacemaker, wire sternal sutures and prosthetic valve are again noted. Cardiac size is decreased slightly. Persistent central low pulmonary venous hypertension and interstitial edema are noted however modestly improved as compared to the previous study. Small pleural effusions are noted. IMPRESSION: 1. Status post intubation. 2. Persistent but improving CHF, ARDS is compared to the previous study of 10/04/2024. Electronically signed by Mario Maldonado 10-06-2024 2:55 PM
--- NOTE | 2024-10-06 14:57 | Communication Note ---
Date of Service: October 06, 2024 Patient had sudden upper airway obstruction leading to hypoxia necessitating intubation. Patient had been saturating 100% on room air throughout the day. He also underwent an emergent bronchoscopy by pulmonary which demonstrated pristine lungs with no evidence of mucoid impaction. 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 This is now the second upper airway obstruction the patient has suffered despite relative improvement of his mental status during this episode of alcohol withdrawal. Discussed case with the patient's daughter. He has been on multiple different sedatives he is approaching maximum dose of phenobarbital we have added Depakote today as a medication adjunct as well as gabapentin. He has been monitored with end-tidal CO2 for apneic events which have not occurred. His mental status has been decreased and it has led to emergent hypoxic acute airway obstructive episodes. We discussed risks and benefits of mechanical ventilation given protracted delirium tremens felt the patient's least risk approach is to minimize time on a ventilator which predisposes to ventilator associated events and protracted sedative use, accordingly it is felt to be less risky proceeding with temporary tracheostomy. Patient at a mildly increased risk of adverse bleeding events given he is on a heparin infusion for a upper extremity DVT which is thought to be provoked from recent IV starts. Accordingly the heparin infusion has been paused and will have time for washout prior to a percutaneous tracheostomy. Also discussed need for lumbar puncture for completeness of workup. Patient has not shown signs of meningismus, I do not believe there is an infectious etiology however given the protracted course and Korsakoff syndrome being a diagnosis of exclusion we will proceed with lumbar puncture again after allowing adequate time for heparin washout. Patient's daughter has consented to both percutaneous tracheostomy and lumbar puncture and bronchoscopy and blood transfusion should they be needed. A type and screen has been ordered. I have personally spent 50 minutes of critical care time in the direct management of this patient. This is a life/limb threatening event. This includes time spent evaluating patient, direct bedside care, chart review, pl acing orders, interpretation of diagnostic studies, discussion with consultants, patient, and/or family members regarding treatment decisions, as well as other required patient management activities. This time is exclusive of all separately billable procedures, and teaching time and separate from and in addition to any other critical care service time. Coding Level of Care Code 47428 CRITICAL CARE EA ADD 30M Additional Critical Care Time Additional 30min Critical Care Time: Yes - 09364 x 2 (60 addl min) Additional Codes Critical Care Time - Additional 30min Critical Care Time: Yes - 05506 x 2 (60 addl min) ([id number])
[2024-10-06] MEDS: PLASMA-LYTE A 1,000 ML IV ONE (15:24)
--- NOTE | 2024-10-06 15:26 | XCELERA ---
[id number]
[2024-10-06] MEDS: OPTIRAY 320 125ml IV ONE (15:52)
[2024-10-06] MEDS: GABAPENTIN 600 MG TAB PO SCH (16:36)
--- NOTE | 2024-10-06 17:08 | CT Scan Report ---
Exam: CT head/brain without contrast Reason for exam: Persistent encephalopathy Previous studies: None FINDINGS: There are some diffuse atrophy and lucencies scattered symmetrically through the deep right matter. At this time no intracranial mass, hemorrhage or edema is seen. Vascular calcifications are present. No extra-axial blood or fluid collection or midline shift is seen at this time. Mastoids remain well-aerated. Significant abnormal soft tissue opacification is seen through the nasal cavity, nasopharynx and paranasal sinuses. Nasoenteric tube is present. IMPRESSION: 1. Negative for acute intracranial process. 2. Diffuse atrophy and lucency in the deep white matter. 3. Extensive soft tissue thickening in the nasal cavity, nasopharynx and paranasal sinuses. Electronically signed by Mario Maldonado 10-06-2024 5:07 PM
--- NOTE | 2024-10-06 17:14 | CT Scan Report ---
Exam: CT angiogram of the chest with pulmonary embolus protocol Reason for exam: Pulmonary embolus. Previous exam: Chest radiograph 10/06/2024. FINDINGS: There is contrast opacification of the pulmonary arteries. No persistent filling defect to indicate embolus is seen on either side at this time. Aorta shows scattered vascular calcium but no intimal flap, significant aneurysm or dissection is visible at the examined levels. Bilateral pleural effusions are seen, left side greater than right with areas of atelectasis in the posterior lung zones bilaterally. Lungs otherwise show some diffuse groundglass perihilar areas are focal opacity as well. Endotracheal tube is seen with the tip approximately 4.0 cm above the joyce. Nasogastric gastric tube is seen passing to the stomach. There is cardiac enlargement with prosthetic mitral valve in place. Multiple calcified hilar and mediastinal lymph nodes are present suggesting old granulomatous disease. Moderate coronary artery calcifications are present. IMPRESSION: 1. Negative for pulmonary embolus. 2. Negative for aortic dissection. 3. Bilateral pleural effusions, left side greater than right with atelectatic changes in the lower lobes bilaterally as well as patchy groundglass densities compatible with the recent CHF/ARDS. Electronically signed by Mario Maldonado 10-06-2024 5:14 PM
[2024-10-06] MEDS: VECURONIUM BROMIDE 10 MG VIAL IV STA (17:57)
[2024-10-06 18:37] LABS: Alanine Aminotransferase 40.0 U/L (7-52); Alkaline Phosphatase 119.0 U/L (34-104); Bilirubin,Total 0.5 mg/dl (0.2-1.0); Total Protein 5.6 gm/dl (6.0-8.3)
--- NOTE | 2024-10-06 18:41 | Procedure Note ---
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 Performed by: Jeanette Millard DO Bronchoscopy Technology Development Intern: Rhett Preprocedure: The identity of the patient was confirmed and a bedside time out was performed. [place] protocol was followed for this procedure. Prior to the initiation of sedation or the procedure, a timeout was performed. The patients identity was verified by confirming the patients wrist band for name, date of , and medical record number. Everyone in the room was in agreement with the patient identify, the procedure to be performed, consent was in place and matched the planned procedure, and the procedure site. The area was cleaned with a CHG scrub and draped with large sterile barrier. Hand hygiene was performed, and cap, mask, sterile gown, and sterile gloves were worn. The patient was covered by a large sterile drape. Sterile technique was maintained for the entire procedure. Anesthesia: The patient was intubated and sedated prior to the procedure. Additional midazolam and fentanyl was given for sedation. Once the patient was adequately sedated, vecuronium was administered for paralysis. Description of Procedure: The patient was placed in the supine position. The anterior neck was prepped and draped in usual sterile fashion. 1% lidocaine with epinephrine was administered approximately 2 fingerbreadths above the sternal notch for local anesthesia. The bronchoscope was introduced through the endotracheal tube and the trachea was properly visualized. The endotracheal tube was then gradually withdrawn within the trachea under direct bronchoscopic visualization. The area of the surgical site was initially transilluminated, and proper midline position was confirmed by bouncing the needle from the tracheostomy tray over the trachea with bronchoscopic examination. The needle was advanced into the trachea and proper positioning was confirmed with direct visualization. The needle was then removed leaving a white outer cannula in position. The wire from the tracheostomy tray was then advanced through the white outer cannula. The cannula was then removed. The initial small, blue dilator was then advanced over the wire into the trachea for initial dilation. The large, tapered dilator was then advanced over the wire into the trachea. The dilator was removed leaving the wire and white inner cannula in position. A number 6 percutaneous Shiley tracheostomy tube with appropriate inner cannula was then advanced over the wire and white inner cannula into the trachea. Proper positioning was confirmed with bronchoscopic visualization. The tracheostomy tube was then sutured in place with four nylon sutures. It was further secured with a tracheostomy tie. Estimated blood loss: Less than 5 mL. Complications: None immediate. [facility] [place], [place] Procedure Codes (Charges) ENT ENT: 91896 Incision of windpipe Coding CPT Codes ENT - ENT: 84014 Incision of windpipe ([id number]) Additional Codes Date of Service ([facility].SURGERY)
[2024-10-06] MEDS: VECURONIUM BROMIDE 10 MG VIAL IV ONE (18:45)
--- NOTE | 2024-10-06 18:47 | Procedure Note ---
Procedure Note Date of Service October 06, 2024 Procedure Date: Noted above Critical Care Medicine Point of Care Bedside Ultrasound Procedure: Limited Bedside Lung Ultrasound Indication: Hypoxic respiratory failure Attending: Jeanette Millard DO Resident/Physician Tobacco Flavorer: Brezovic Organs Examined: Lung BLUE point (upper), BLUE point (lower), Phrenic Point (axillary), PLAPS point (posterior) A lines visualized: Absent, Hemithorax: Left B lines visualized: Absent, Hemithorax: Left Lung Sliding: Present, Hemithorax: Left Tissue-like Sign: Absent, Hemithorax: Left Shred Sign: Absent, Hemithorax: Left Quad Sign: Present, Hemithorax: Collapse point Sinusoid Sign: Present, Hemithorax: Plavix point Type of effusions: Simple, Hemithorax: Left posterior hemithorax Interpleural distance: Greater than 1 cm Impression: Simple appearing left pleural effusion with type a profile with absence of B-lines Images obtained are saved for permanent record [facility] [place] Procedure Codes (Charges) Pulmonary/Thoracic Procedure 1: Pulmonary and Thoracic: 74616 US, Chest, real time with imaging documentation Coding CPT Codes Pulmonary/Thoracic - Pulmonary and Thoracic: 96425 US, Chest, real time with imaging documentation ([id number]) Additional Codes Date of Service ([facility].SURGERY)
--- NOTE | 2024-10-06 18:51 | Procedure Note ---
Procedure Note Date of Service October 06, 2024 BRONCHOSCOPY - Procedure: Flexible Bronchoscopy Press Setup Operator: Rajinder ROSARIO ([facility]) Attending: Dr. Millard Anesthetic/Sedation: Fentanyl and Versed continuous infusion Indication: Real time guidance for perc trach placement Consent was obtained by Dr. Millard and signed and placed on the chart prior to procedure. Indication, risks, and benefits were explained at length by him. A time-out was completed verifying correct patient, procedure, site, positioning, and implant(s) or special equipment if applicable. Procedure: Bronchoscope was advanced down ETT, joyce visualized. The bronchoscope was then withdrawn with the ETT to the just below the vocal chords until transillumination visualized by Dr. Millard and ballotment of tissue noted by myself on the scope. Seeker needle was then placed through anterior neck by Dr. Millard, visualized in good position with brnochoscope and free of the backwall. The guidewire was advanced and visualized going downward towards the joyce. Initial Dilation was performed and again visualized free of the back wall. Serial dilations were completed by Dr. Millard and 6.0 cuffed Trahcestomy with inner cannula was then placed into the trachea, direct visualization with bronchoscope of cuff up and tracheostomy freely in the trachea. The scope and ETT was removed suctioning out small amount of thin bloody secretions. Following securing of the tracheostomy, the brochoscope was then passed down the newly creathed perc trach inner cannula noting no obstruction correct placement noted above the joyce. The right and left mainstem bronchous were inspected that looked clean and pink. Small amount of thick clear secretions were suctioned out. THe bronchoscope was then removed and was noted to be intact. No samples were sent to lab. Complications: NONE Impression: Patient tolerated procedure well. Supervising Physician Co-Signing Physician Notes I was present for the entire procedure. There was no bleeding nor oozing after the procedure down to the airways. [facility] [place] Procedure Codes (Charges) Pulmonary/Thoracic Procedure 1: Pulmonary and Thoracic: 97934 Bronchoscopy, clear airways Coding CPT Codes Pulmonary/Thoracic - Pulmonary and Thoracic: 78160 Bronchoscopy, clear airways ([id number]) Additional Codes Date of Service (PG.SURGERY)
[2024-10-06 19:06] LABS: Partial Thromboplastin Time 27 Seconds (21-31)
--- NOTE | 2024-10-06 19:39 | Procedure Note ---
Procedure Note Date of Service October 06, 2024 Procedure Date: October 06, 2024 Procedure: Lumbar puncture Pre-procedure Diagnosis: Dense encephalopathy Post-procedure Diagnosis: same as above Prior to Procedure: Informed Consent: The risks, benefits, indications, potential complications, and alternatives were explained to the patient's family and informed consent obtained. Attending Staff: Susan Millard DO Resident/Physician Architectural Model Maker: Macey Indications: Patient is a 69-year-old male with significant dense encephalopathy continuing for 7 days presumptively related to alcohol withdraw. The identity of the patient was confirmed and a bedside time out was performed. Description of Procedure: Patient was positioned in the left lateral decubitus position, prepped and draped in usual sterile fashion. The L4-5 space located with bilateral iliac crests as landmarks. 1% Lidocaine without epinephrine was used to anesthetize the area. A 18 gauge spinal needle was introduced into the subarachnoid space. Stylet was removed with appropriate fluid return. Needle removed after adequate fluid collected and sterile bandage placed at puncture site, 5 mL of CSF fluid collected. Fluid was clear. Specimen(s): sent for Gram Stain, culture, cell count, glucose, protein, lyme titers Complications: None Findings: Normal appearance of CSF Estimated Blood Loss: trace Coding Additional Codes Date of Service (PG.SURGERY)
[2024-10-06] MEDS: LIDOCAINE 1%/EPINEPHRINE 1:100,000 50 ML VIAL INFIL ONE (20:10)
[2024-10-06 20:22] LABS: CSF Count Tube # 3; CSF Xanthrochromic No xanthochromia; Red Blood Cell CSF Manual 20 (0); White Blood Cell CSF Manual 0 (0-5)
[2024-10-06] MEDS: TUBE FEEDING WATER FLUSH GT SCH (21:14)
[2024-10-06] MEDS: VALPROIC ACID SOLN 250 MG/5 ML UDC PO SCH (21:20)
--- NOTE | 2024-10-06 21:45 | Hospitalist Progress Note ---
Date of Service October 06, 2024 Assessment & Plan (1) Alcohol abuse: (2) Electrolyte abnormality: (3) Chronic systolic CHF (congestive heart failure): (4) Depression with anxiety: (5) Hypertension: (6) Acute alcohol intoxication delirium with moderate or severe use disorder: Plan 69 years old male with PMH of FULL CODE @ home, HTN, non-ischemic cardiomyopathy with chronic systolic CHF with LVEF 30%, normal RV systolic function, and indeterminate LV diastolic function, s/p AICD, and ongoing EtOH abuse who presented to [facility] ER on 09/29/2024 with comsplaint of abdominal distention, generally overall feeling unwell. On exam he did not appear anxious, no tremors. No significant ascites appreciated during my physical exam. No RUQ tenderness. Only trace bilateral LE edema. Patient was subsequently admitted to the inpatient hospitalist service @ [facility] on 09/29/2024 with the following diagnoses: 1. Acute ETOH intoxication with ETOH 143.3 mg/dL (09/29/2024, 5:12pm). 2. Acute ETOH withdrawal with last swig of whisky (09/29/2024, 6:00am). 3. Acute hypokalemia with admission K 2.4 mmol/L (09/29/2024, 3:38pm). 4. Acute hypomagnesemia with admission Mg 1.6 mg/dL (09/29/2024, 3:38pm). 5. Acute hypophosphatemia with admission PO4 2.0 mg/dL (, 9:14pm). 6. Acute hypoxic respiratory failure with O2 saturation 71% on room air (09/30/2024, 2:10am), now with O2 saturation 88-89% on 10 liters/minute O2 via oxymask (09/30/2024, 7:30am). 7. Acute hypercapnic respiratory failure with CO2 45 mmol/L (09/30/2024, 7:03am). 8. Acute kidney injury with admission creatinine 2.20 mg/dL (09/29/2024, 3:38pm). 9. Acute lactic acidosis with admission lactic acid #1 4.2 mmol/L (09/30/2024, 3:24pm). 10.Acute exacerbation of chronic systolic CHF with reduced LVEF 30%, normal RV systolic function, inability to assess LV diastolic function due to prior mitral valve repair (as reported on 06/08/2022 TTE, CARDS Dr. Olman Collins). 11.Acute type II NSTEMI with troponin #1 21.8 pg/mL (, 3:38pm) and troponin #2 22.9 pg/mL (, 5:12pm). The following medical issues are being addressed on 10/06/2024: 1. Acute ETOH intoxication with ETOH 143.3 mg/dL (09/29/2024, 5:12pm). Continue ETOH abstinence while in [facility]. 2. Acute ETOH withdrawal with last swig of whisky (09/29/2024, 6:00am). Continue telemetry, CIWA scale scoring with ativan prn, off precedex infusion (since 10/05/2024, 12:31pm infusion), off phenobarbital 32.5mg IV bid ( 5, 9:01pm; 10/04/2024, 8:53am; 10/05/2024, 8:33am), on phenobarbital 30mg PO bid x 5 doses (starting on 10/05/2024, 8:10pm), MVI, thiamine, and folate supplementation. 3. Acute hypokalemia with admission K 2.4 mmol/L (09/29/2024, 3:38pm). PERSISTENT s/p supplementation with KCl 40meq PO x 1 dose (09/29/2024, 6:15pm) with post-supplement K 3.2 mmol/L (09/30/2024, 7:03am) and current K 3.0 mmol/L (09/30/2024, 11:09am). Patient subsequently received KCl 10meq IV q1h x 6 bags (09/30/2024, 12:43pm, 12:44pm, 1:34pm). PERSISTENT with post-supplement K 3.4 mmol/L (10/01/2024, 8:43am). Patient subsequently received KCl 10meq IVv q1h x 4 bags (10/01/2024, 6:47pm). Acute hypokalemia RESOLVED with post-supplement K 3.8 mmol/L (10/02/2024, 4:53am), repeat K 3.5 mmol/L (10/03/2024, 4:27am), repeat K 3.8 mmol/L (10/04/2024, 4:32am), and current K 4.6 mmol/L (10/05/2024, 8:40am). I will check repeat K level in the 10/07/2024 am. Of note, etiology of acute hypokalemia was most probably due to chronic ETOH-mediated berta-uresis. 4. Acute hypomagnesemia with admission Mg 1.6 mg/dL (09/29/2024, 3:38pm). RESOLVED s/p supplement with magnesium sulfate 1g IV x 2 doses (09/29/2024, 6:13pm, 9:42pm) with post-supplement Mg 2.0 mg/dL (09/30/2024, 7:03am), repeat Mg 1.9 mg/dL (10/01/2024, 4:41am), repeat Mg 1.9 mg/dL (10/02/2024, 4:53am), repeat Mg 2.2 mg/dL (10/03/2024, 4:27am), repeat Mg 2.0 mg/dL (10/04/2024, 4:32am), and current Mg 2.0 mg/dL (10/05/2024, 8:40am). I will check repeat Mg level in the 10/07/2024 am. Of note, etiology of acute hypomagnesemia was most probably due to chronic ETOH-mediated magne-uresis. 5. Acute hypophosphatemia with admission PO4 2.0 mg/dL (, 9:14pm). RESOLVED. No KPO4 supplement given repeat, normal PO4 4.0 mg/dL (09/30/2024, 3:24pm), repeat PO4 3.5 mg/dL (10/01/2024, 4:41am), repeat PO4 4.0 mg/dL (10/02/2024, 4:53am), repeat PO4 2.9 mg/dL (10/03/2024, 4:27am). cf., repeat PO4 1.9 mg/dL (10/04/2024, 4:32am). Patient subsequently received KPO4 12 mmol IV x 1 dose (10/04/2024, 6:30am) with post-supplement PO4 2.0 mg/dL (10/04/2024, 9:50am). cf., current PO4 2.5 mg/dL (10/05/2024, 8:40am). Check repeat PO4 level in the 10/07/2024 am, and supplement to attain/maintain PO4 level > 2.5 mg/dL. 6. Acute hypoxic respiratory failure with O2 saturation 71% on room air (09/30/2024, 2:10am), followed by O2 saturation 88-89% on 10 liters/minute O2 via oxymask (09/30/2024, 7:30am), followed by O2 saturation 94% on High Flow oxygen @ 40 L/min, FIO2 = 0.45 (10/01/2024, 6:01pm), followed by O2 saturation 96% on High Flow oxygen @ 40 L/min, FIO2 = 0.40 (10/02/2024, 7:32am). RESOLVED with O2 saturation 99% on 4 L/min O2 via NC (10/02/2024, 12:51pm), O2 saturation 92% on 3 L/min O2 via NC (10/03/2024, 6:00am), O2 saturation 96% on room air (10/04/2024, 10:01am. Etiology of acute hypoxic respiratory failure remains unclear as patient remains afebrile with WBC remaining normal (cf., admission WBC 5.56, N56 L30 M12 E1 B1 (09/29/2024, 3:38pm) and repeat WBC 9.38, no differential (09/30/2024, 7:03am) and portable CXR (09/29/2024) negative for infiltrate/consolidation, effusion, cardiomegaly, pulmonary vascular congestion, or pneumothorax (by my review). Subsequently, I ordered procalcitonin (09/30/2024, 2:32pm), lactic acid (09/30/2024, 2:32pm), and portable CXR (09/30/2024, 2:33pm). Subsequently, procalcitonin was normal @ 0.10 ng/mL (09/30/2024, 3:24pm), lactic acid was elevated at 4.2 mmol/L (09/30/2024, 3:24pm), and portable CXR (09/30/2024, 2:33pm) revealed "Stable cardiac valve repair and pacemaker. Stable cardiomegaly with increased pulmonary vascular congestion. There is increased patchy opacity throughout the right lung and at the left lung base. No pleural effusion or pneumothorax." Hence, acute exace rbation of chronic systolic CHF with last recorded LVEF 30% (as noted on 06/08/2022, 1:13pm TTE, CARDS Dr. Olman Collins) may be contributing to patient's acute hypoxic respiratory failure. Subsequently, I ordered TTE for the 10/02/2024 am; still pending as of 10/05/2024, 8:30pm. In the interim, patient is NOT being started on lasix, but is restarting his home-scheduled metoprolol succinate XL 50mg PO qam, given BP 149/103 (10/05/2024, 8:03pm). Of note, patient underwent direct laryngoscopy with subsequent video laryngoscopy (10/05/2024, 1:43pm, Critical Care Dr. Edgardo Millard)(performed to address patient's acute hypoxic respiratory failure; subsequent finding of "concretion leading to upper airway obstruction.") Of note, patient was intubated emergently during Code Purple (10/06/2024, 2:08pm, [facility] ER Dr. Ponce Oleary) to address acute hypoxic respiratory failure with O2 sat 60% on room air (10/06/2024, 1:51pm), of unclear etiology, with subsequent bronchoscopy (10/06/2024, 2:16pm, [facility] Critical Care Dr. Luis A Chao)(to evaluate patient for possible mucous plugging) revealing "clear airways." Of note, patient subsequently underwent workup to evaluate the etiology of patient's acute hypoxic respiratory failure on 10/06/2024, 1:51pm with O2 sat 60% on room air (10/06/2024, 1:51pm), which included the following tests: A. CTA chest (10/06/2024, 3:07pm): 1. Negative for pulmonary embolus. 2. Negative for aortic dissection. 3. Bilateral pleural effusions, left side greater than right with atelectatic changes in the lower lobes bilaterally as well as patchy groundglass densities compatible with the recent CHF/ARDS. B. TTE (10/06/2024, 3:26pm): 1. LVEF 25-30%. Severe global LV dysfunction. 2. Mildly dilated LV. Mild concentric LVH. 3. RV mild to moderately dilated with moderate RV dysfunction. 4. Post mitral valve repair with annuloplasty ring. Normal expected transvalvular gradients and no significant MR. 5. Moderate pulmonary HTN with estimated PASP 50-55 mm Hg. Estimated RAP 15 mm Hg. 6. Compared to prior study on 04/23/2022, no significant changes. (as per CARDS Dr. Chepe Guidry). C. Flexible bronchoscopy (10/06/2024, 6:43pm, Critical Care Bowen Calvillo Macey, QUALITY NURSE): "Bronchoscope was advanced down ETT, joyce visualized. The bronchoscope was then withdrawn with the ETT to the just below the vocal chords until transillumination visualized by Dr. Millard and ballotment of tissue noted by myself on the scope. Seeker needle was then placed through anterior neck by Dr. Millard, visualized in good position with brnochoscope and free of the backwall. The guidewire was advanced and visualized going downward towards the joyce. Initial Dilation was performed and again visualized free of the back wall. Serial dilations were completed by Dr. Millard and 6.0 cuffed Trahcestomy with inner cannula was then placed into the trachea, direct visualization with bronchoscope of cuff up and tracheostomy freely in the trachea. The scope and ETT was removed suctioning out small amount of thin bloody secretions. Following securing of the tracheostomy, the brochoscope was then passed down the newly creathed perc trach inner cannula noting no obstruction correct placement noted above the joyce. The right and left mainstem bronchous were inspected that looked clean and pink. Small amount of thick clear secretions were suctioned out. THe bronchoscope was then removed and was noted to be intact. No samples were sent to lab." D. Lung U/S (10/06/2024, 6:46pm, Critical Care Dr. Edgardo Millard): "Simple appearing left pleural effusion with type a profile with absence of B-lines." E. Lumbar puncture (10/06/2024, 7:36pm, Critical Care Dr. Edgardo Millard): clear, colorless, WBC 0, RBC 20, cell count 3, glucose 76, protein 43.1, Lyme IgM/IgG pending. In sum, etiology of patient's acute hypoxic respiratory failure on 10/06/2024, 1:51pm with O2 sat 60% on room air (10/06/2024, 1:51pm) remains unclear. 7. Acute hypercapnic respiratory failure with CO2 45 mmol/L (09/30/2024, 7:03am) and CO2 35 mmol/L (10/01/2024, 4:41am), RESOLVED with CO2 29 mmol/L (10/02/2024, 4:53am). Etiology of of acute hypercapnic respiratory failure remains unclear in this patient who is still hyperventilating at: 29 breaths/minute (09/30/2024, 7:30am) 34 breaths/minute (09/30/2024, 1:03pm) 24 breaths/minute (10/01/2024, 8:00 am and 6:01pm) 22 breaths/minute (10/04/2024, 10:01am). 24 breaths/minute (10/05/2024, 8:03pm). Of note, patient underwent portable CXR (09/30/2024, 2:33pm) to check for evidence of COPD, bronchiectasis/fibrosis, and/or atelectasis, which can lead to hypercapnia, and none of which were observed on portable CXR (09/30/2024, 2:33pm). 8. Acute kidney injury with admission creatinine 2.20 mg/dL (09/29/2024, 3:38pm), RESOLVED. cf., admission creatinine 2.20 mg/dL (09/29/2024, 3:38pm). cf., repeat creatinine 1.90 mg/dL (09/30/2024, 7:03am). cf., repeat creatinine 1.88 mg/dL (10/01/2024, 4:41am). cf., repeat creatinine 1.91 mg/dL (10/02/2024, 4:53am). cf., repeat creatinine 1.58 mg/dL (10/03/2024, 4:27am). cf., repeat creatinine 1.24 mg/dL (10/04/2024, 4:32am). cf., current creatinine 1.10 mg/dL (10/05/2024, 8:40am). cf., baseline creatinine range, 0.95 mg/dL (04/25/2022, 6:21am) to 1.37 mg/dL (07/04/2024, 7:12am). Etiology of acute kidney injury remains unclear, but may be due to patient's home-scheduled sacubitril 49mg - valsartan 51mg PO bid, lasix 40mg PO qam, spironolactone 25mg PO daily, and lisinopril 20mg PO daily given the potential for any/all of these agents to cause further renal embarrassment. Hence, I have opted to hold OFF patient's home-scheduled sacubitril 49mg - valsartan 51mg PO bid, lasix 40mg PO qam, spironolactone 25mg PO daily, and lisinopril 20mg PO daily. Observe. 9. Acute lactic acidosis with admission lactic acid #1 4.2 mmol/L (09/30/2024, 3:24pm), RESOLVED. cf., lactic acid # 2 4.3 mmol/L (09/30/2024, 6:18pm). cf., lactic acid # 3 3.6 mmol/L (09/30/2024, 8:00pm). cf., lactic acid # 4 3.3 mmol/L (10/01/2024, 4:41am). cf., lactic acid # 5 5.7 mmol/L (10/01/2024, 9:04am). cf., lactic acid # 6 2.3 mmol/L (10/01/2024, 7:07pm). cf., lactic acid # 7 1.4 mmol/L (10/02/2024, 4:53am). cf., lactic acid # 8 2.9 mmol/L (10/03/2024, 9:38am). cf., lactic acid # 9 1.5 mmol/L (10/04/2024, 4:32am). cf., lactic acid #10 5.8 mmol/L (10/05/2024, 8:40am). cf., lactic acid #11 1.5 mmol/L (10/05/2024, 12:41pm). Etiology of acute lactic acidosis remains unclear, but is probably due to a combination of (a) acute dehydration from chronic ETOH-mediated diuresis and (b) muqol-ia-fwulbra transaminitis, which in turn, is due to chronic alcoholic hepatitis. In addition, I surmise that the propylene glycol solvent used in the phenobarbital IV formulation @ [facility] contributed to increased formation of lactic acid. Now that patient is off phenobarbital 32.5mg IV bid (10/03/2024, 9:01pm; 10/04/2024, 8:53am; 10/05/2024, 8:33am), and on phenobarbital 30mg PO bid x 5 doses (starting on 10/05/2024, 8:10pm), I do not expect recurrence of acute lactic acidosis. cf., AST 58 U/L, ALT 25 U/L, ALK PHOS 168 U/L (09/29/2024, 3:38pm). cf., AST 45 U/L, ALT 22 U/L, ALK PHOS 164 U/L (09/30/2024, 7:03am). cf., AST 41 U/L, ALT 18 U/L, ALK PHOS 153 U/L (10/01/2024, 4:41am). cf., baseline AST range, 18 - 33 U/L (10/22/2020 - 07/04/2024), ALT range, 12-38 U/L (10/22/2020 - 07/04/2024), ALK PHOS range, 110-124 U/L (03/09/2022 - 07/04/2024). To address (a), patient received 1 liter of 0.9% NS @ 999 mL/hr (09/29/2024, 6:16pm), followed by 1 liter of lactated Ringers @ 125 mL/hr (09/29/2024, 9:42pm) in [facility] ER. Patient is being held off further IV fluid rehydration therapy in order to avoid further cardio-pulmonary embarrassment. 10. Acute exacerbation of chronic systolic CHF with reduced LVEF 30%, normal RV systolic function, inability to assess LV diastolic function due to prior mitral valve repair (as reported on 06/08/2022 TTE, CARDS Dr. Olman Collins). s/p AICD. Restart home-scheduled metoprolol succinate 50mg PO qam with a first dose now on 10/05/2024, 9:06pm. Hold OFF home-scheduled sacubitril 49mg - valsartan 51mg PO bid, lasix 40mg PO qam, spironolactone 25mg PO daily, and lisinopril 20mg PO daily, given the potential for any/all of these agents to cause further renal embarrassment. cf., admission creatinine 2.20 mg/dL (09/29/2024, 3:38pm). cf., repeat creatinine 1.90 mg/dL (09/30/2024, 7:03am). cf., repeat creatinine 1.88 mg/dL (10/01/2024, 4:41am). cf., repeat creatinine 1.91 mg/dL (10/02/2024, 4:53am). cf., repeat creatinine 1.58 mg/dL (10/03/2024, 4:27am). cf., repeat creatinine 1.24 mg/dL (10/04/2024, 4:32am). cf., current creatinine 1.10 mg/dL (10/05/2024, 8:40am). cf., baseline creatinine range, 0.95 mg/dL (04/25/2022, 6:21am) to 1.37 mg/dL (07/04/2024, 7:12am). 11. Acute type II NSTEMI with troponin #1 21.8 pg/mL (, 3:38pm) and troponin #2 22.9 pg/mL (, 5:12pm). Etiology of nominally elevated troponin levels remains unclear, but is most probably due to demand ischemia, which in turn, is due to (a) acute hypoxic respiratory failure, which in turn, is due to (b) acute exacerbation of chronic systolic CHF with reduced LVEF 30%, normal RV systolic function, inability to assess LV diastolic function due to prior mitral valve repair (as reported on 06/08/2022 TTE, CARDS Dr. Olman Collins). Hence, I have opted to observe this laboratory anomaly at this time. 12. Disposition. Code status, FULL CODE @ home. ALS as required. Condition of patient remains tenuous, if not terminal, given the severity of patient's medical problems noted above. To this end, I called and spoke with the patient's daughter, Ms. Carla Tidwell ( ) on 10/05/2024, 7:44pm, and she concurs with the assessment and plan as described above. Admission and Anticipated Discharge Date Admission Date: September 29, 2024 Subjective Unavailable as patient was intubated emergently during Code Purple (10/06/2024, 2:08pm, [facility] ER Dr. Ponce Oleary) to address acute hypoxic respiratory failure with O2 sat 60% on room air (10/06/2024, 1:51pm), of unclear etiology, with subsequent bronchoscopy (10/06/2024, 2:16pm, [facility] Critical Care Dr. Luis A Chao)(to evaluate patient for possible mucous plugging) revealing "clear airways." Review of Systems Constitutional: Unavailable as patient was intubated emergently during Code Purple (10/06/2024, 2:08pm, [facility] ER Dr. Ponce Oleary) to address acute hypoxic respiratory failure with O2 sat 60% on room air (10/06/2024, 1:51pm), of unclear etiology, with subsequent bronchoscopy (10/06/2024, 2:16pm, [facility] Critical Care Dr. Luis A Chao)(to evaluate patient for possible mucous plugging) revealing "clear airways." Physical Exam Constitutional: General: Comfortable, intubated emergently during Code Purple (10/06/2024, 2:08pm, [facility] ER Dr. Ponce Oleary) to address acute hypoxic respiratory failure with O2 sat 60% on room air (10/06/2024, 1:51pm), of unclear etiology, with subsequent bronchoscopy (10/06/2024, 2:16pm, [facility] Critical Care Dr. Luis A Chao)(to evaluate patient for possible mucous plugging) revealing "clear airways." HEENT: Normocephalic, atraumatic. Pupils equally round and reactive to light. No nystagmus, gaze paresis, anisocoria, miosis, mydriasis, hyphema, scleral injection, conjunctivitis, or pterygium. No otorrhea. No pharyngeal erythema, edema, or discharge. NG tube with [employer] HN 1.2 jovanni on hold. Neck: Supple, no stridor, bruit, goiter, or hepato-jugular reflux. Jugular venous pressure is estimated to be 3 cm above the sternal angle of [place], which in turn, is 5 cm above the level of the right atrium; with jugular venous pressure estimated to be 8 cm, then, there is no jugular venous distention on 10/06/2024. Lymphatics: No cervical (anterior/posterior), supraclavicular, infraclavicular, axillary, epitrochlear, or inguinal adenopathy. Chest: Symmetric rise and fall with respirations. Non-tender to palpation. s/p direct laryngoscopy with subsequent video laryngoscopy (10/05/2024, 1:43pm, Critical Care Dr. Edgardo Millard)(performed to address patient's acute hypoxic respiratory failure; subsequent finding of "concretion leading to upper airway obstruction."). s/p bronchoscopy (10/06/2024, 2:16pm, [facility] Critical Care Dr. Luis A Chao)(to evaluate patient for possible mucous plugging) revealing "clear airways." Lungs: Clear to auscultation and percussion. No audible expiratory wheeze, egophony, pectoriloquy, increase in tactile fremitus, or flatness/dullness to percussion at the bases. Heart: Regular rate. Regular rhythm. S1 and S2 noted. No S3 or S4 summation gallop. No tripartite friction rub. Grade II/ early systolic murmur @ LLSB without radiation to the carotids, axilla, or back, and which remains invariant in regards to the respiratory cycle. Abdomen: Soft, non-tender, non-distended. No rebound, guarding, Logan's sign, or organomegaly. Bowel sounds auscultated in all 4 quadrants. Extremities: No clubbing, cyanosis, or edema in upper extremities or lower extremities bilaterally. 2+ pedal pulses bilaterally. Skin: No decubitus ulcer or enanthem. Genito-urinary: No urethral discharge. + poole catheter with urine output 0.60 mL/kg/hr (10/05/2024, 9:30pm to 10/06/2024, 9:30pm) Neurology: No myoclonus, tremors, or tics. Results & Data Results & Data Vital Signs (Past 12 Hours) Vital Signs Temp Pulse Resp BP BP Pulse Ox O2 Del Method 10/06/24 18:42 Mechanical Vent 10/06/24 18:40 88 20 100 10/06/24 18:35 136/84 10/06/24 18:35 136/84 10/06/24 18:30 126/76 10/06/24 18:28 132/76 10/06/24 18:21 99 H 20 100 10/06/24 18:20 122/75 10/06/24 18:20 122/75 10/06/24 18:18 123/64 10/06/24 18:15 98 H 0 L 98 10/06/24 18:15 125/74 10/06/24 18:13 124/74 10/06/24 18:13 124/74 10/06/24 18:12 102 H 20 98 10/06/24 18:10 137/81 10/06/24 18:09 101 H 20 96 10/06/24 18:08 142/84 H 10/06/24 18:05 141/85 H 10/06/24 18:03 137/86 10/06/24 18:00 141/90 H 10/06/24 17:58 142/88 H 10/06/24 17:51 148/98 H 10/06/24 17:51 98 H 20 94 10/06/24 17:45 95 H 20 96 10/06/24 17:45 146/97 H 10/06/24 17:21 90 20 97 10/06/24 17:18 89 20 97 10/06/24 17:15 133/80 10/06/24 17:15 133/80 10/06/24 17:15 133/80 10/06/24 17:15 133/80 10/06/24 17:12 89 20 98 10/06/24 17:00 90 20 98 10/06/24 17:00 138/85 10/06/24 16:51 90 20 98 10/06/24 16:45 136/82 10/06/24 16:45 136/82 10/06/24 16:42 91 H 20 97 Mechanical Vent 10/06/24 16:30 143/92 H 10/06/24 16:15 97 H 100 10/06/24 16:15 146/94 H 10/06/24 16:06 149/89 H 10/06/24 15:36 94 H 20 100 10/06/24 15:30 144/88 H 10/06/24 15:30 144/88 H 10/06/24 15:20 Mechanical Vent 10/06/24 15:15 95 H 20 100 10/06/24 15:15 132/77 10/06/24 15:13 131/78 10/06/24 15:07 119/71 10/06/24 15:00 129/76 10/06/24 15:00 92 H 20 100 10/06/24 14:58 131/81 10/06/24 14:57 93 H 20 100 10/06/24 14:55 129/77 10/06/24 14:51 93 H 20 100 10/06/24 14:50 130/78 10/06/24 14:50 130/78 10/06/24 14:48 129/81 10/06/24 14:45 127/78 10/06/24 14:45 93 H 20 100 10/06/24 14:43 127/77 10/06/24 14:42 92 H 20 100 10/06/24 14:40 124/81 10/06/24 14:39 91 H 20 100 10/06/24 14:37 122/76 10/06/24 14:35 117/72 10/06/24 14:33 106/58 L 10/06/24 14:27 100/65 10/06/24 14:25 85/55 L 10/06/24 14:23 77/47 L 10/06/24 14:23 77/47 L 10/06/24 14:21 76/46 L 07/06/25 14:19 78/49 L 10/06/24 14:18 78/49 L 10/06/24 14:18 104 H 20 100 10/06/24 14:17 79/47 L 10/06/24 14:15 97 H 20 100 10/06/24 14:15 79/47 L 10/06/24 14:14 80/49 L 10/06/24 14:10 90/54 L 10/06/24 14:06 121 H 3 L 100 10/06/24 14:05 93/59 L 10/06/24 14:00 103/67 10/06/24 13:51 125 H 29 H 60 L 10/06/24 13:49 91/64 L 10/06/24 13:33 121 H 33 H 96 10/06/24 13:00 115/73 10/06/24 13:00 120 H 25 H 99 10/06/24 12:30 120 H 29 H 97 10/06/24 12:00 37.1 C 10/06/24 12:00 116/81 10/06/24 11:03 121 H 28 H 92 10/06/24 11:00 128/102 H 10/06/24 11:00 128/102 H 10/06/24 11:00 128/102 H 10/06/24 11:00 128/102 H 10/06/24 10:57 121 H 24 96 10/06/24 10:55 157/112 H 10/06/24 10:55 157/112 H 10/06/24 10:54 122 H 34 H 97 FiO2 10/06/24 18:42 10/06/24 18:40 70 10/06/24 18:35 10/06/24 18:35 10/06/24 18:30 10/06/24 18:28 10/06/24 18:21 10/06/24 18:20 10/06/24 18:20 10/06/24 18:18 10/06/24 18:15 10/06/24 18:15 10/06/24 18:13 10/06/24 18:13 10/06/24 18:12 10/06/24 18:10 10/06/24 18:09 10/06/24 18:08 10/06/24 18:05 10/06/24 18:03 10/06/24 18:00 10/06/24 17:58 10/06/24 17:51 10/06/24 17:51 10/06/24 17:45 10/06/24 17:45 10/06/24 17:21 10/06/24 17:18 10/06/24 17:15 10/06/24 17:15 10/06/24 17:15 10/06/24 17:15 10/06/24 17:12 10/06/24 17:00 10/06/24 17:00 10/06/24 16:51 10/06/24 16:45 10/06/24 16:45 10/06/24 16:42 50 10/06/24 16:30 10/06/24 16:15 10/06/24 16:15 10/06/24 16:06 10/06/24 15:36 10/06/24 15:30 10/06/24 15:30 10/06/24 15:20 10/06/24 15:15 10/06/24 15:15 10/06/24 15:13 10/06/24 15:07 10/06/24 15:00 10/06/24 15:00 10/06/24 14:58 10/06/24 14:57 10/06/24 14:55 10/06/24 14:51 10/06/24 14:50 10/06/24 14:50 10/06/24 14:48 10/06/24 14:45 10/06/24 14:45 10/06/24 14:43 10/06/24 14:42 10/06/24 14:40 10/06/24 14:39 10/06/24 14:37 10/06/24 14:35 10/06/24 14:33 10/06/24 14:27 10/06/24 14:25 10/06/24 14:23 10/06/24 14:23 10/06/24 14:21 10/06/24 14:19 10/06/24 14:18 10/06/24 14:18 10/06/24 14:17 10/06/24 14:15 100 10/06/24 14:15 10/06/24 14:14 10/06/24 14:10 10/06/24 14:06 10/06/24 14:05 10/06/24 14:00 10/06/24 13:51 10/06/24 13:49 10/06/24 13:33 10/06/24 13:00 10/06/24 13:00 10/06/24 12:30 10/06/24 12:00 10/06/24 12:00 10/06/24 11:03 10/06/24 11:00 10/06/24 11:00 10/06/24 11:00 10/06/24 11:00 10/06/24 10:57 10/06/24 10:55 10/06/24 10:55 10/06/24 10:54 Laboratory Results Abnormal lab results 10/06/24 10/06/24 10/06/24 Range/Units 04:16 15:05 Unknown WBC 12.35 H (4.8-10.8) K/ul RBC 3.08 L (4.70-6.10) M/uL Hgb 10.7 L (14.0-18.0) g/dl Hct 33.4 L (42.0-52.0) % MCV 108.4 H (80.0-100.0) fL MCH 34.7 H (25.0-34.0) pg RDW Std Deviation 62.4 H (36.4-46.3) fL RDW Coeff of Donna 15.6 H (11.5-14.5) % Neut # (Auto) 8.36 H (1.40-6.50) K/uL Woodson # (Auto) 1.54 H (0.11-0.59) K/uL Immature Gran # (Auto) 0.63 H (0.01-0.20) K/uL Sodium 135 L (136-145) mmol/L BUN 24 H (6-23) mg/dl BUN/Creatinine Ratio 20.5 H (10-20) Phosphorus 2.3 L (2.5-4.9) mg/dl Direct Bilirubin 0.3 H (0-0.2) mg/dl AST 50 H (13-39) U/L Alkaline Phosphatase 119 H (34-104) U/L Lactate Dehydrogenase 348 H (86-244) U/L Total Protein 5.6 L (6.0-8.3) gm/dl Albumin 2.5 L (3.4-5.0) gm/dl CSF Glucose 76 H (40-70) mg/dl Diagnostic Findings CTA chest (10/06/2024, 3:07pm): 1. Negative for pulmonary embolus. 2. Negative for aortic dissection. 3. Bilateral pleural effusions, left side greater than right with atelectatic changes in the lower lobes bilaterally as well as patchy groundglass densities compatible with the recent CHF/ARDS. TTE (10/06/2024, 3:26pm): 1. LVEF 25-30%. Severe global LV dysfunction. 2. Mildly dilated LV. Mild concentric LVH. 3. RV mild to moderately dilated with moderate RV dysfunction. 4. Post mitral valve repair with annuloplasty ring. Normal expected transvalvular gradients and no significant MR. 5. Moderate pulmonary HTN with estimated PASP 50-55 mm Hg. Estimated RAP 15 mm Hg. 6. Compared to prior study on 04/23/2022, no significant changes. (as per CARDS Dr. Chepe Guidry). Flexible bronchoscopy (10/06/2024, 6:43pm, Critical Care Mr. Rajinder Choudhury, QUALITY NURSE): "Bronchoscope was advanced down ETT, joyce visualized. The bronchoscope was then withdrawn with the ETT to the just below the vocal chords until transillumination visualized by Dr. Millard and ballotment of tissue noted by myself on the scope. Seeker needle was then placed through anterior neck by Dr. Millard, visualized in good position with brnochoscope and free of the backwall. The guidewire was advanced and visualized going downward towards the joyce. Initial Dilation was performed and again visualized free of the back wall. Serial dilations were completed by Dr. Millard and 6.0 cuffed Trahcestomy with inner cannula was then placed into the trachea, direct visualization with bronchoscope of cuff up and tracheostomy freely in the trachea. The scope and ETT was removed suctioning out small amount of thin bloody secretions. Following securing of the tracheostomy, the brochoscope was then passed down the newly creathed perc trach inner cannula noting no obstruction correct placement noted above the joyce. The right and left mainstem bronchous were inspected that looked clean and pink. Small amount of thick clear secretions were suctioned out. THe bronchoscope was then removed and was noted to be intact. No samples were sent to lab." Lung U/S (10/06/2024, 6:46pm, Critical Care Dr. Edgardo Millard): "Simple appearing left pleural effusion with type a profile with absence of B-lines." Lumbar puncture (10/06/2024, 7:36pm, Critical Care Dr. Edgardo Millard): clear, colorless, WBC 0, RBC 20, cell count 3, glucose 76, protein 43.1, Lyme IgM/IgG pending. PG Care Time/CCT Total # of Minutes Spent Total Time Spent with Patient: Total time spent is greater than 50% in coordination of care (as documented) at patient's floor/unit and/or counseling patient: Coding Level of Care Code 98813 SUB INP/OBS CARE 3/50MIN Diagnoses Alcohol abuse F10.10 Electrolyte abnormality E87.8 Chronic systolic CHF (congestive heart failure) I50.22 Depression with anxiety F41.8 Hypertension I10 Acute alcohol intoxication delirium with moderate or severe use disorder F10.221
[2024-10-06] MEDS: HEPARIN 25000 UNIT/500 ML D5W 25,000 UNITS/500 ML BAG IV SCH (22:26)
--- NOTE | 2024-10-06 23:40 | XRay Report ---
Exam(s): XR CXR 1 VIEW EXAM: XR Chest, 1 View CLINICAL HISTORY: Reason for exam: s/p tracheostomy PERC. TECHNIQUE: Frontal view of the chest. COMPARISON: No relevant prior studies available. FINDINGS: A tracheostomy tube is noted. Lungs: There is increased opacity at the left lung base.. Pleural space: There is a small left pleural effusion.. No pneumothorax. Heart: A pacemaker is noted. The heart is top normal in size.. Mediastinum: There is uncoiling of the thoracic aorta.. Bones/joints: There are degenerative changes in the spine.. IMPRESSION: There is a small left pleural effusion with infiltrate and/or atelectasis at the left lung base. Electronically signed by: Ritchie Hines MD 10/06/24 23:39 PM
[2024-10-07] MEDS: GABAPENTIN 600 MG TAB PO SCH (03:42)
[2024-10-07 05:22] LABS: Base Excess VBG -3.6 mEq/L; HCO3 VBG 20 mmol/L; Oxygen Saturation VBG 88.3 %; PCO2 VBG 33 mmHg (38-50); PO2 VBG 58 mmHg; pH VBG 7.40 (7.36-7.41)
[2024-10-07 05:26] LABS: Hematocrit (blood only) 30.9 % (42.0-52.0); Hemoglobin 10.3 g/dl (14.0-18.0); Immature Granulocytes # (auto) 0.25 K/uL (0.01-0.20); Immature Granulocytes % (auto) 2.5 %; Mean Corpuscular Hemoglobin 35.2 pg (25.0-34.0); Mean Corpuscular Volume 105.5 fL (80.0-100.0); Platelet Count 244 K/uL (130-400); RDW Standard Deviation 58.4 fL (36.4-46.3); Red Blood Count 2.93 M/uL (4.70-6.10); White Blood Count 9.90 K/ul (4.8-10.8)
[2024-10-07 05:41] LABS: Anion Gap 8.0 (3-11); Blood Urea Nitrogen 19.0 mg/dl (6-23); Calcium 8.2 mg/dl (8.6-10.3); Carbon Dioxide 20.0 mmol/L (21-32); Chloride 109.0 mmol/L (98-107); Creatinine Clr Calc Pharmacy 78.4 ml/min; Glucose 109.0 mg/dl (70-99(Fasting)); Magnesium 1.9 mg/dl (1.7-2.4); Potassium 3.8 mmol/L (3.5-5.1); Sodium 137.0 mmol/L (136-145)
[2024-10-07 05:53] LABS: ANTI-Xa, UFH(UnfractionatedHep 0.31 IU/ml (0.3-0.7)
[2024-10-07] MEDS: ALBUMIN 5% 250 ML IV ONE (06:13)
[2024-10-07] MEDS: POTASSIUM CHLORIDE 20 MEQ/15 ML UDC PO STA (06:17)
[2024-10-07] MEDS: MAGNESIUM SULFATE / D5W 1 GM/100 ML BAG IV SCH (06:32)
[2024-10-07] MEDS ORDERED: Nursing to Pharmacy Communication SCH (08:15)
--- NOTE | 2024-10-07 08:15 | XRay Report ---
SINGLE VIEW CHEST CLINICAL HISTORY: Respiratory failure. Pneumonia FINDINGS: An AP, portable, semierect chest radiograph is compared to study dated 10/06/2024 and correl ated with chest CT dated 10/06/2024. A tracheostomy and enteric tube are unchanged in position. The pa tient is status post midline sternotomy and cardiac valve surgeries. A single lead cardiac AICD is un changed in position and partially obscures the left upper chest. The heart is enlarged including athe rosclerotic calcification of the thoracic aorta. There is pulmonary vascular congestion. There are sm all pleural effusions with left basilar consolidation. No pneumothorax is seen. The skeletal structur es are osteopenic. The bony thorax is grossly intact. IMPRESSION: 1. Stable lines and tubes. 2. Cardiomegaly and AICD with evidence of congestive failure. 3. Left large right pleural effusions with bibasilar consolidation. This is similar to yesterday. ACT 112: Negative or not required by law. Electronically signed by: Shen Aguilar M.D. 10/07/2024 8:13 AM
--- NOTE | 2024-10-07 08:22 | Critical Care Progress Note ---
Date of Service October 07, 2024 Assessment & Plan (1) Acute alcohol intoxication: Plan: Reason Critically Ill: 69-year-old male with acute agitated delirium PLAN: Neuro: Patient with alcoholic delirium tremens: Patient currently on oral phenobarbital plus IV Versed and fentanyl. Will trial sedation vacation today and see his response. Continue thiamine and folic acid. Unable to proceed with MRI of the brain due to AICD and inability to communicate. LP performed 10/06/2024 revealed a mildly elevated glucose. Will send a meningitis/encephalitis PCR panel from the CSF fluid if there is enough fluid. Cultures pending. Resp: Patient status post tracheostomy placement 10/06/2024. Previous provider was concerned about upper airway obstruction and thus tracheostomy was performed. Chest x-ray today reveals left pleural effusion similar to yesterday and non specific right upper lobe hazy opacities. Zosyn added to cover for possible hospital-acquired pneumonia/ventilator acquired. CV: History nonischemic cardiomyopathy - metoprolol succinate 50 mg mg daily when appropriate. Will hold this morning given undergoing sinus tachycardia and fever. Prolonged QT - Avoid antipsychotics for sedatives Echocardiogram with an EF of 25 to 30%. RV mild to moderately dilated. Patient is status post mitral valve repair with annuloplasty ring. Patient with moderate pulmonary hypertension. PASP of 50 to 55 mmHg. Will try to maintain euvolemia. Patient known to cardiology with a history of nonischemic cardiomyopathy. Fluids/Renal: Acute kidney injury: Resolved - Discontinued Serrano catheter and replaced with condom cath again with goals to decrease interventions hopefully decreasing delirium triggers Hypokalemia: Resolved Mild lactic acid acidosis: Resolved - Received 500 mg thiamine IVx3, now 100 mg daily Mixed metabolic acidosis: Resolved ID: Patient with low-grade fever and new infiltrates on chest x-ray. Will treat as hap/BAP. MRSA screen to be repeated. Start Zosyn. Will order for CSF meningitis/encephalitis PCR from CSF fluid 10/06/2024. Follow CSF cultures. GI/Nutrition: Mild transaminitis - Elevated AST - Acute hepatitis panel: Negative NG tube in place. Will start tube feeds when appropriate. Heme: Anemia - Appropriate reticulocytosis, appears to be anemia related to alcohol consumption, folate B12 within acceptable range DVT prophylaxis: Heparin infusion - Presumptive history of prior DVT given calcification of thrombus in mid right femoral vein: Review of chart demonstrates orthopedic injury history to that affected leg - Right upper extremity DVT, history of recent IV starts. Most consistent with provoked DVT, likely needs 3 months of anticoagulation Endocrine: ICU hyperglycemia protocol Vascular access: After losing several IVs and the noted right upper extremity DVT, midline in the left upper extremity Code Status: Full code Disposition: ICU I spent 15 minutes reviewing the electronic medical record/relevant imaging, 10 minutes discussing diagnosis and treatment plan with patient/family, and 20 minutes discussing care plan with ancillary staff such as RT/RN/pharmacist/drywall stripper helper/PT/OT/other consulting medical services. CRITICAL CARE TIME I have personally spent 63 minutes of critical care time in the direct management of this patient. This is a life/limb threatening event. This includes time spent evaluating patient, direct bedside care, chart review, placing orders, interpretation of diagnostic studies, discussion with consultants, patient, and family members, as well as other required patient management activities. This time is exclusive of all separately billable procedures, and teaching time and separate from and in addition to any other critical care service time. (2) Acute alcohol intoxication delirium with moderate or severe use disorder: (3) Electrolyte abnormality: (4) Fracture of right tibial plateau: (5) Chronic systolic CHF (congestive heart failure): (6) S/P ICD (internal cardiac defibrillator) procedure: (7) Nonischemic cardiomyopathy: Admission and Anticipated Discharge Date Admission Date: September 29, 2024 Subjective Patient unable to answer any questions. At the time my exam he was sedated with Versed and fentanyl. This has been paused. Per nursing he has remained largely unresponsive and does spontaneously move extremities at times. He does withdraw from painful response. He has been spiking a low-grade temperature this morning and has been in sinus tach. Vasopressors have been off. He remains intubated and on mechanical ventilation. Review of Systems Review of Systems: Unobtainable due to endotracheal tube and Unobtainable due to reduced consciousness Physical Exam Physical Exam: Constitutional: Patient appears to be of their stated age. Tracheostomy in place. NG tube in place. No apparent distress. Eyes: Pupils are equal round and reactive to light. Conjunctivae are normal. Anicteric sclera. Ears nose, mouth and throat:Normal posterior oropharynx. Uvula is midline. Size [address] in place. Sutures in place. Neck: Trachea is midline. Visual inspection is normal. Respiratory: Mildly diminished at the left lung base at the right side and crackles. Cardiovascular: Tachycardic.. No murmurs. No edema. Gastrointestinal: Normal bowel sounds, soft, nontender and nondistended. No hepatosplenomegaly noted. Musculoskeletal: No cyanosis. Patient is able to move all extremities. Strength is 5 out of 5 in the upper and lower extremities. Skin: No rashes, warm dry and intact. Neurologic: No obvious focal neurological deficits seen. Psychiatric: Unable to assess. Results & Data Results & Data Vital Signs (Past 12 Hours) Vital Signs Temp Pulse Resp BP Pulse Ox O2 Del Method FiO2 10/07/24 07:00 117 H 27 H 98 40 10/07/24 06:00 37.4 C 117 H 19 95 10/07/24 06:00 99/60 L 10/07/24 06:00 99/60 L 10/07/24 05:00 122/74 10/07/24 05:00 122/74 10/07/24 05:00 37.0 C 110 H 18 97 10/07/24 04:02 109 H 25 H 97 40 10/07/24 04:00 36.9 C 102 H 25 H 98 10/07/24 04:00 96/61 L 10/07/24 04:00 96/61 L 10/07/24 03:13 40 10/07/24 03:03 36.6 C 107 H 19 96 10/07/24 03:00 111/66 10/07/24 03:00 111/66 10/07/24 03:00 111/66 10/07/24 02:27 36.5 C 102 H 27 H 97 10/07/24 02:12 36.5 C 100 H 22 98 10/07/24 02:00 102/60 10/07/24 02:00 102/60 10/07/24 01:51 36.4 C L 99 H 21 96 10/07/24 01:12 36.2 C L 97 H 25 H 100 10/07/24 00:00 110/69 10/07/24 00:00 110/69 10/07/24 00:00 35.8 C L 92 H 25 H 100 10/06/24 23:32 90/53 L 10/06/24 23:32 90/53 L 10/06/24 23:30 83/53 L 10/06/24 23:18 35.8 C L 93 H 22 100 10/06/24 23:13 40 10/06/24 23:01 81/53 L 10/06/24 23:01 81/53 L 10/06/24 23:01 81/53 L 10/06/24 23:00 81/52 L 10/06/24 22:57 35.8 C L 95 H 20 99 10/06/24 22:30 93/62 L 10/06/24 22:30 93/62 L 10/06/24 22:10 96 H 22 100 40 10/06/24 22:09 35.8 C L 95 H 20 100 10/06/24 22:00 107/67 10/06/24 22:00 35.8 C L 97 H 21 100 10/06/24 22:00 Mechanical Vent 40 10/06/24 21:30 35.8 C L 92 H 20 100 10/06/24 21:30 110/67 10/06/24 21:00 113/75 10/06/24 21:00 113/75 10/06/24 21:00 113/75 10/06/24 21:00 35.8 C L 89 20 100 10/06/24 20:30 35.9 C L 91 H 20 100 10/06/24 20:30 122/75 10/06/24 20:30 122/75 10/06/24 20:12 35.9 C L 93 H 20 100 Coding Level of Care Code 91005 CRITICAL CARE 1ST 30-74M Diagnoses Acute alcoholic intoxication with delirium F10.921 Complication of substance-induced condition: with delirium Acute alcohol intoxication delirium with moderate or severe use disorder F10.221 Electrolyte abnormality E87.8 Closed fracture of right tibial plateau, sequela S82.141S Encounter type: sequela Fracture type: closed Chronic systolic CHF (congestive heart failure) I50.22 S/P ICD (internal cardiac defibrillator) procedure Z95.810 Nonischemic cardiomyopathy I42.8 (1) Acute alcohol intoxication Complication of substance-induced condition: with delirium Qualified Code(s): F10.921 - Alcohol use, unspecified with intoxication delirium (4) Fracture of right tibial plateau Encounter type: sequela Fracture type: closed Qualified Code(s): S82.141S - Displaced bicondylar fracture of right tibia, sequela
[2024-10-07] MEDS: PIPERACILLIN/TAZOBACTAM 4.5 GM/100 ML BAG IV STA (08:26)
[2024-10-07] MEDS: PANTOprazole 40 MG/10 ML SYR IV SCH (10:32)
[2024-10-07 10:55] LABS: Cryptococcus neoformans/ga PCR Not Detected (NotDetected); Escherichia coli K1 PCR Not Detected (NotDetected); Haemophilius influenzae PCR Not Detected (NotDetected); Herpes Simplex Virus 1 PCR Not Detected (NotDetected); Herpes Simplex Virus 2 PCR Not Detected (NotDetected); Human Herpes Virus 6 PCR Not Detected (NotDetected); Human Parechovirus PCR Not Detected (NotDetected); Listeria monocytogenes PCR Not Detected (NotDetected); Neisseria meningitidis PCR Not Detected (NotDetected); Streptococcus agalactiae PCR Not Detected (NotDetected); Streptococcus pneumoniae PCR Not Detected (NotDetected)
[2024-10-07] MEDS: PIPERACILLIN/TAZOBACTAM 4.5 GM/100 ML BAG IV SCH (12:58)
[2024-10-07] MEDS: ACETAMINOPHEN 325 MG TAB PO PRN (13:20)
[2024-10-07 13:47] LABS: Cdiff Toxin B Gene (2yr or >) Negative Cdiff Gene (Neg)
[2024-10-07] MEDS: LACTATED RINGER'S 500 ML IV ONE (14:36)
--- NOTE | 2024-10-07 20:20 | Hospitalist Progress Note ---
Date of Service October 07, 2024 Assessment & Plan (1) Acute hypoxic respiratory failure: (2) HAP (hospital-acquired pneumonia): Plan 69 years old male with PMH of FULL CODE @ home, HTN, non-ischemic cardiomyopathy with chronic systolic CHF with LVEF 30%, normal RV systolic function, and indeterminate LV diastolic function, s/p AICD, and ongoing EtOH abuse who presented to [facility] ER on 09/29/2024 with comsplaint of abdominal distention, generally overall feeling unwell. On exam he did not appear anxious, no tremors. No significant ascites appreciated during my physical exam. No RUQ tenderness. Only trace bilateral LE edema. Patient was subsequently admitted to the inpatient hospitalist service @ [facility] on 09/29/2024 with the following diagnoses: 1. Acute ETOH intoxication with ETOH 143.3 mg/dL (09/29/2024, 5:12pm). 2. Acute ETOH withdrawal with last swig of whisky (09/29/2024, 6:00am). 3. Acute hypokalemia with admission K 2.4 mmol/L (09/29/2024, 3:38pm). 4. Acute hypomagnesemia with admission Mg 1.6 mg/dL (09/29/2024, 3:38pm). 5. Acute hypophosphatemia with admission PO4 2.0 mg/dL (, 9:14pm). 6. Acute hypoxic respiratory failure with O2 saturation 71% on room air (09/30/2024, 2:10am), now with O2 saturation 88-89% on 10 liters/minute O2 via oxymask (09/30/2024, 7:30am). 7. Acute hypercapnic respiratory failure with CO2 45 mmol/L (09/30/2024, 7:03am). 8. Acute kidney injury with admission creatinine 2.20 mg/dL (09/29/2024, 3:38pm). 9. Acute lactic acidosis with admission lactic acid #1 4.2 mmol/L (09/30/2024, 3:24pm). 10.Acute exacerbation of chronic systolic CHF with reduced LVEF 30%, normal RV systolic function, inability to assess LV diastolic function due to prior mitral valve repair (as reported on 06/08/2022 TTE, CARDS Dr. Olman Collins). 11.Acute type II NSTEMI with troponin #1 21.8 pg/mL (, 3:38pm) and troponin #2 22.9 pg/mL (, 5:12pm). The following medical issues are being addressed on 10/06/2024: 1. Acute ETOH intoxication with ETOH 143.3 mg/dL (09/29/2024, 5:12pm). Continue ETOH abstinence while in [facility]. 2. Acute ETOH withdrawal with last swig of whisky (09/29/2024, 6:00am). Continue telemetry, CIWA scale scoring with ativan prn, off precedex infusion (since 10/05/2024, 12:31pm infusion), off phenobarbital 32.5mg IV bid (10/03/2024, 9:01pm; 10/04/2024, 8:53am; 10/05/2024, 8:33am), on phenobarbital 30mg PO bid x 5 doses (starting on 10/05/2024, 8:10pm), MVI, thiamine, and folate supplementation. 3. Acute hypokalemia with admission K 2.4 mmol/L (09/29/2024, 3:38pm). PERSISTENT s/p supplementation with KCl 40meq PO x 1 dose (09/29/2024, 6:15pm) with post-supplement K 3.2 mmol/L (09/30/2024, 7:03am) and current K 3.0 mmol/L (09/30/2024, 11:09am). Patient subsequently received KCl 10meq IV q1h x 6 bags (09/30/2024, 12:43pm, 12:44pm, 1:34pm). PERSISTENT with post-supplement K 3.4 mmol/L (10/01/2024, 8:43am). Patient subsequently received KCl 10meq IVv q1h x 4 bags (10/01/2024, 6:47pm). Acute hypokalemia RESOLVED with post-supplement K 3.8 mmol/L (10/02/2024, 4:53am), repeat K 3.5 mmol/L (10/03/2024, 4:27am), repeat K 3.8 mmol/L (10/04/2024, 4:32am), and current K 4.6 mmol/L (10/05/2024, 8:40am). I will check repeat K level in the 10/08/2024 am. Of note, etiology of acute hypokalemia was most probably due to chronic ETOH-mediated berta-uresis. 4. Acute hypomagnesemia with admission Mg 1.6 mg/dL (09/29/2024, 3:38pm). RESOLVED s/p supplement with magnesium sulfate 1g IV x 2 doses (09/29/2024, 6:13pm, 9:42pm) with post-supplement Mg 2.0 mg/dL (09/30/2024, 7:03am), repeat Mg 1.9 mg/dL (10/01/2024, 4:41am), repeat Mg 1.9 mg/dL (10/02/2024, 4:53am), repeat Mg 2.2 mg/dL (10/03/2024, 4:27am), repeat Mg 2.0 mg/dL (10/04/2024, 4:32am), and current Mg 2.0 mg/dL (10/05/2024, 8:40am). I will check repeat Mg level in the 10/08/2024 am. Of note, etiology of acute hypomagnesemia was most probably due to chronic ETOH-mediated magne-uresis. 5. Acute hypophosphatemia with admission PO4 2.0 mg/dL (, 9:14pm). RESOLVED. No KPO4 supplement given repeat, normal PO4 4.0 mg/dL (09/30/2024, 3:24pm), repeat PO4 3.5 mg/dL (10/01/2024, 4:41am), repeat PO4 4.0 mg/dL (10/02/2024, 4:53am), repeat PO4 2.9 mg/dL (10/03/2024, 4:27am). cf., repeat PO4 1.9 mg/dL (10/04/2024, 4:32am). Patient subsequently received KPO4 12 mmol IV x 1 dose (10/04/2024, 6:30am) with post-supplement PO4 2.0 mg/dL (10/04/2024, 9:50am). cf., current PO4 2.5 mg/dL (10/05/2024, 8:40am). Check repeat PO4 level in the 10/08/2024 am, and supplement to attain/maintain PO4 level > 2.5 mg/dL. 6. Acute hypoxic respiratory failure with O2 saturation 71% on room air (09/30/2024, 2:10am), followed by O2 saturation 88-89% on 10 liters/minute O2 via oxymask (09/30/2024, 7:30am), followed by O2 saturation 94% on High Flow oxygen @ 40 L/min, FIO2 = 0.45 (10/01/2024, 6:01pm), followed by O2 saturation 96% on High Flow oxygen @ 40 L/min, FIO2 = 0.40 (10/02/2024, 7:32am). RESOLVED transiently with O2 saturation 99% on 4 L/min O2 via NC (10/02/2024, 12:51pm), O2 saturation 92% on 3 L/min O2 via NC (10/03/2024, 6:00am), O2 saturation 96% on room air (10/04/2024, 10:01am. Etiology of acute hypoxic respiratory failure remains unclear as patient remains afebrile with WBC remaini ng normal (cf., admission WBC 5.56, N56 L30 M12 E1 B1 (09/29/2024, 3:38pm) and repeat WBC 9.38, no differential (09/30/2024, 7:03am) and portable CXR (09/29/2024) negative for infiltrate/consolidation, effusion, cardiomegaly, pulmonary vascular congestion, or pneumothorax (by my review). Subsequently, I ordered procalcitonin (09/30/2024, 2:32pm), lactic acid (09/30/2024, 2:32pm), and portable CXR (09/30/2024, 2:33pm). Subsequently, procalcitonin was normal @ 0.10 ng/mL (09/30/2024, 3:24pm), lactic acid was elevated at 4.2 mmol/L (09/30/2024, 3:24pm), and portable CXR (09/30/2024, 2:33pm) revealed "Stable cardiac valve repair and pacemaker. Stable cardiomegaly with increased pulmonary vascular congestion. There is increased patchy opacity throughout the right lung and at the left lung base. No pleural effusion or pneumothorax." Hence, acute exacerbation of chronic systolic CHF with last recorded LVEF 30% (as noted on 06/08/2022, 1:13pm TTE, CARDS Dr. Olman Collins) may be contributing to patient's acute hypoxic respiratory failure. Subsequently, I ordered TTE for the 10/02/2024 am; In the interim, patient was not started on lasix, but instead, patient was started on metoprolol tatrate 25mg PO bid (10/05/2024, 9:40am), in lieu of his home-scheduled metoprolol succinate XL 50mg PO qam, given BP 149/103 (10/05/2024, 8:03pm). Of note, patient underwent direct laryngoscopy with subsequent video laryngoscopy (10/05/2024, 1:43pm, Critical Care Dr. Edgardo Millard)(performed to address patient's acute hypoxic respiratory failure; subsequent finding of "concretion leading to upper airway obstruction.") Of note, patient was intubated emergently during Code Purple (10/06/2024, 2:08pm, [facility] ER Dr. Ponce Oleary) to address acute hypoxic respiratory failure with O2 sat 60% on room air (10/06/2024, 1:51pm), of unclear etiology, with subsequent bronchoscopy (10/06/2024, 2:16pm, [facility] Critical Care Dr. Luis A Chao)(to evaluate patient for possible mucous plugging) revealing "clear airways." Of note, patient subsequently underwent workup to evaluate the etiology of sarkis ent's acute hypoxic respiratory failure on 10/06/2024, 1:51pm with O2 sat 60% on room air (10/06/2024, 1:51pm), which included the following tests: A. CTA chest (10/06/2024, 3:07pm): 1. Negative for pulmonary embolus. 2. Negative for aortic dissection. 3. Bilateral pleural effusions, left side greater than right with atelectatic changes in the lower lobes bilaterally as well as patchy groundglass densities compatible with the recent CHF/ARDS. B. TTE (10/06/2024, 3:26pm): 1. LVEF 25-30%. Severe global LV dysfunction. 2. Mildly dilated LV. Mild concentric LVH. 3. RV mild to moderately dilated with moderate RV dysfunction. 4. Post mitral valve repair with annuloplasty ring. Normal expected transvalvular gradients and no significant MR. 5. Moderate pulmonary HTN with estimated PASP 50-55 mm Hg. Estimated RAP 15 mm Hg. 6. Compared to prior study on 04/23/2022, no significant changes. (as per CARDS Dr. Chepe Guidry). C. Flexible bronchoscopy (10/06/2024, 6:43pm, Critical Care Bowen Calvillo Macey, [employer]): "Bronchoscope was advanced down ETT, joyce visualized. The bronchoscope was then withdrawn with the ETT to the just below the vocal chords until transillumination visualized by Dr. Millard and ballotment of tissue noted by myself on the scope. Seeker needle was then placed through anterior neck by Dr. Millard, visualized in good position with brnochoscope and free of the backwall. The guidewire was advanced and visualized going downward towards the joyce. Initial Dilation was performed and again visualized free of the back wall. Serial dilations were completed by Dr. Millard and 6.0 cuffed Trahcestomy with inner cannula was then placed into the trachea, direct visualization with bronchoscope of cuff up and tracheostomy freely in the trachea. The scope and ETT was removed suctioning out small amount of thin bloody secretions. Following securing of the tracheostomy, the brochoscope was then passed down the newly creathed perc trach inner cannula noting no obstruction correct placement noted above the joyce. The right and left mainstem bronchous were inspected that looked clean and pink. Small amount of thick clear secretions were suctioned out. THe bronchoscope was then removed and was noted to be intact. No samples were sent to lab." D. Lung U/S (10/06/2024, 6:46pm, Critical Care Dr. Edgardo Millard): "Simple appearing left pleural effusion with type a profile with absence of B-lines." E. Lumbar puncture (10/06/2024, 7:36pm, Critical Care Dr. Edgardo Millard): clear, colorless, WBC 0, RBC 20, cell count 3, glucose 76, protein 43.1, Lyme IgM/IgG pending. F. Portable CXR (10/06/2024, 7:50pm): 1. Small left pleural effusion with infiltrate and/or atelectasis at the left lung base. G. Portable CXR (10/06/2024, 7:52am): 1. Stable lines and tubes. 2. Cardiomegaly and AICD with evidence of congestive failure. 3. Left large right pleural effusions with bibasilar consolidation. This is similar to yesterday. In sum, given the development of bibasilar consolidation with bilateral effusions (as noted on 10/06/2024, 7:52am portable CXR), combined with procalcitonin levels that remain consistently elevated above 0.20 ng/mL since 10/02/2024 (see below), I surmise that this patient has developed an acute bibasilar Hospital-Acquired Pneumonia (HAP) with effusions AFTER being admitted to [facility] on 09/30/2024. Moreover, acute bibasilar HAP is most likely the etiology for patient's acute hypoxic respiratory failure that preceded announcement of Code Purple (10/06/2024, 2:08pm, [facility] ER Dr. Ponce Oleary). cf., procalcitonin #1 0.10 ng/mL (09/30/2024, 3:24pm) cf., procalcitonin #2 0.15 ng/mL (10/01/2024, 4:41am). cf., procalcitonin #3 0.35 ng/mL (10/02/2024, 4:53am). cf., procalcitonin #4 1.00 ng/mL (10/03/2024, 9:38am). cf., procalcitonin #5 0.40 ng/mL (10/05/2024, 8:40am). cf., procalcitonin #6 0.24 ng/mL (10/06/2024, 8:18am). cf., procalcitonin #7 0.31 ng/mL (10/07/2024, 5:11am). To treat acute bibasilar Hospital-Associated Pneumonia (HAP) with effusions, patient has been started on zosyn 4.5g IV q8 (day #1 on 10/07/2024, 12:58pm). Given that patient has tested negative for MRSA twice (see below), the likelihood that patient has developed an acute staphylococcal bibasilar HAP remains very low, and hence, empiric vancomycin has NOT been started on 10/07/2024. cf., MRSA nares PCR screen negative (09/30/2024, 1:00pm). cf., MRSA nares PCR screen negative (10/07/2024, 8:15am). Of final note, I will check vitals, chest exam, WBC w/diff, lactic acid, and procalcitonin levels in the 10/08/2024 am. 7. Acute hypercapnic respiratory failure with CO2 45 mmol/L (09/30/2024, 7:03am) and CO2 35 mmol/L (10/01/2024, 4:41am), RESOLVED with CO2 29 mmol/L (10/02/2024, 4:53am). Etiology of of acute hypercapnic respiratory failure remains unclear in this patient who is still hyperventilating at: 29 breaths/minute (09/30/2024, 7:30am) 34 breaths/minute (09/30/2024, 1:03pm) 24 breaths/minute (10/01/2024, 8:00 am and 6:01pm) 22 breaths/minute (10/04/2024, 10:01am). 24 breaths/minute (10/05/2024, 8:03pm). Of note, patient underwent portable CXR (09/30/2024, 2:33pm) to check for evidence of COPD, bronchiectasis/fibrosis, and/or atelectasis, which can lead to hypercapnia, and none of which were observed on portable CXR (09/30/2024, 2:33pm). 8. Acute kidney injury with admission creatinine 2.20 mg/dL (09/29/2024, 3:38pm), RESOLVED. cf., admission creatinine 2.20 mg/dL (09/29/2024, 3:38pm). cf., repeat creatinine 1.90 mg/dL (09/30/2024, 7:03am). cf., repeat creatinine 1.88 mg/dL (10/01/2024, 4:41am). cf., repeat creatinine 1.91 mg/dL (10/02/2024, 4:53am). cf., repeat creatinine 1.58 mg/dL (10/03/2024, 4:27am). cf., repeat creatinine 1.24 mg/dL (10/04/2024, 4:32am). cf., current creatinine 1.10 mg/dL (10/05/2024, 8:40am). cf., baseline creatinine range, 0.95 mg/dL (04/25/2022, 6:21am) to 1.37 mg/dL (07/04/2024, 7:12am). Etiology of acute kidney injury remains unclear, but may be due to patient's home-scheduled sacubitril 49mg - valsartan 51mg PO bid, lasix 40mg PO qam, spironolactone 25mg PO daily, and lisinopril 20mg PO daily given the potential for any/all of these agents to cause further renal embarrassment. Hence, I have opted to hold OFF patient's home-scheduled sacubitril 49mg - valsartan 51mg PO bid, lasix 40mg PO qam, spironolactone 25mg PO daily, and lisinopril 20mg PO daily. Observe. 9. Acute lactic acidosis with admission lactic acid #1 4.2 mmol/L (09/30/2024, 3:24pm), RESOLVED. cf., lactic acid # 2 4.3 mmol/L (09/30/2024, 6:18pm). cf., lactic acid # 3 3.6 mmol/L (09/30/2024, 8:00pm). cf., lactic acid # 4 3.3 mmol/L (10/01/2024, 4:41am). cf., lactic acid # 5 5.7 mmol/L (10/01/2024, 9:04am). cf., lactic acid # 6 2.3 mmol/L (10/01/2024, 7:07pm). cf., lactic acid # 7 1.4 mmol/L (10/02/2024, 4:53am). cf., lactic acid # 8 2.9 mmol/L (10/03/2024, 9:38am). cf., lactic acid # 9 1.5 mmol/L (10/04/2024, 4:32am). cf., lactic acid #10 5.8 mmol/L (10/05/2024, 8:40am). cf., lactic acid #11 1.5 mmol/L (10/05/2024, 12:41pm). Etiology of acute lactic acidosis remains unclear, but is probably due to a combination of (a) acute dehydration from chronic ETOH-mediated diuresis and (b) ttala-[id number]-fuvejdy transaminitis, which in turn, is due to chronic alcoholic hepatitis. In addition, I surmise that the propylene glycol solvent used in the phenobarbital IV formulation @ [facility] contributed to increased formation of lactic acid. Now that patient is off phenobarbital 32.5mg IV bid (10/03/2024, 9:01pm; 10/04/2024, 8:53am; 10/05/2024, 8:33am), and on phenobarbital 30mg PO bid x 5 doses (starting on 10/05/2024, 8:10pm), I do not expect recurrence of acute lactic acidosis. cf., AST 58 U/L, ALT 25 U/L, ALK PHOS 168 U/L (09/29/2024, 3:38pm). cf., AST 45 U/L, ALT 22 U/L, ALK PHOS 164 U/L (09/30/2024, 7:03am). cf., AST 41 U/L, ALT 18 U/L, ALK PHOS 153 U/L (10/01/2024, 4:41am). cf., baseline AST range, 18 - 33 U/L (10/22/2020 - 07/04/2024), ALT range, 12-38 U/L (10/22/2020 - 07/04/2024), ALK PHOS range, 110-124 U/L (03/09/2022 - 07/04/2024). To address (a), patient received 1 liter of 0.9% NS @ 999 mL/hr (09/29/2024, 6:16pm), followed by 1 liter of lactated Ringers @ 125 mL/hr (09/29/2024, 9:42pm) in [facility] ER. Patient is being held off further IV fluid rehydration therapy in order to avoid further cardio-pulmonary embarrassment. 10. Acute exacerbation of chronic systolic CHF with reduced LVEF 30%, normal RV systolic function, inability to assess LV diastolic function due to prior mitral valve repair (as reported on 06/08/2022 TTE, CARDS Dr. Olman Collins). s/p AICD. Restart home-scheduled metoprolol succinate 50mg PO qam with a first dose now on 10/05/2024, 9:06pm. Hold OFF home-scheduled sacubitril 49mg - valsartan 51mg PO bid, lasix 40mg PO qam, spironolactone 25mg PO daily, and lisinopril 20mg PO daily, given the potential for any/all of these agents to cause further renal embarrassment. cf., admission creatinine 2.20 mg/dL (09/29/2024, 3:38pm). cf., repeat creatinine 1.90 mg/dL (09/30/2024, 7:03am). cf., repeat creatinine 1.88 mg/dL (10/01/2024, 4:41am). cf., repeat creatinine 1.91 mg/dL (10/02/2024, 4:53am). cf., repeat creatinine 1.58 mg/dL (10/03/2024, 4:27am). cf., repeat creatinine 1.24 mg/dL (10/04/2024, 4:32am). cf., current creatinine 1.10 mg/dL (10/05/2024, 8:40am). cf., baseline creatinine range, 0.95 mg/dL (04/25/2022, 6:21am) to 1.37 mg/dL (07/04/2024, 7:12am). 11. Acute type II NSTEMI with troponin #1 21.8 pg/mL (, 3:38pm) and troponin #2 22.9 pg/mL (, 5:12pm). Etiology of nominally elevated troponin levels remains unclear, but is most probably due to demand ischemia, which in turn, is due to (a) acute hypoxic respiratory failure, which in turn, is due to (b) acute exacerbation of chronic systolic CHF with reduced LVEF 30%, normal RV systolic function, inability to assess LV diastolic function due to prior mitral valve repair (as reported on 06/08/2022 TTE, CARDS Dr. Olman Collins). Hence, I have opted to observe this laboratory anomaly at this time. 12. Disposition. Code status, FULL CODE @ home. ALS as required. Condition of patient remains tenuous, if not terminal, given the severity of patient's medical problems noted above. To this end, I called and spoke with the patient's daughter, Ms. Carla Tidewll ( ) on 10/06/2024, 8:35pm, and she concurred with the assessment and plan as described above. Admission and Anticipated Discharge Date Admission Date: September 29, 2024 Subjective Unavailable as patient remains lethargic, obtunded, and non-verbal, since being intubated and mechanically ventilated since Code Purple (10/06/2024, 2:08pm) to address acute hypoxic respiratory failure with O2 sat 60% on room air (10/06/2024, 1:51pm), of unclear etiology, with subsequent bronchoscopy (10/06/2024, 2:16pm, [facility] Critical Care Dr. Luis A Chao)(to evaluate patient for possible mucous plugging) revealing "clear airways." Subsequent bronchoscopy (10/06/2024, 6:43pm, Critical Care MARLENE Milligan) revealed "Small amount of thick clear secretions were suctioned out" implying that patient may have been suffering from recurrent mucous plugging as a proximal cause for his acute hypoxic respiratory failure on 10/06/2024, 2:08pm. Review of Systems Constitutional: Unavailable as patient remains lethargic, obtunded, and non-verbal, since being intubated and mechanically ventilated since Code Purple (10/06/2024, 2:08pm) to address acute hypoxic respiratory failure with O2 sat 60% on room air (10/06/2024, 1:51pm), of unclear etiology, with subsequent bronchoscopy (10/06/2024, 2:16pm, [facility] Critical Care Dr. Luis A Chao)(to evaluate patient for possible mucous plugging) revealing "clear airways." Subsequent bronchoscopy (10/06/2024, 6:43pm, Critical Care MARLENE Milligan) revealed "Small amount of thick clear secretions were suctioned out" implying that patient may have been suffering from recurrent mucous plugging as a proximal cause for his acute hypoxic respiratory failure on 10/06/2024, 2:08pm. Physical Exam Constitutional: General: Comfortable, intubated emergently during Code (10/06/2024, 2:08pm, [facility] ER Dr. Ponce Oleary) to address acute hypoxic respiratory failure with O2 sat 60% on room air (10/06/2024, 1:51pm), of unclear etiology, with subsequent bronchoscopy (10/06/2024, 2:16pm, [facility] Critical Care Dr. Luis A Chao)(to evaluate patient for possible mucous plugging) revealing "clear airways." HEENT: Normocephalic, atraumatic. Pupils equally round and reactive to light. No nystagmus, gaze paresis, anisocoria, miosis, mydriasis, hyphema, scleral injection, conjunctivitis, or pterygium. No otorrhea. No pharyngeal erythema, edema, or discharge. NG tube with [employer] HN 1.2 jovanni on hold. Neck: Supple, no stridor, bruit, goiter, or hepato-jugular reflux. Jugular venous pressure is estimated to be 3 cm above the sternal angle of [place], which in turn, is 5 cm above the level of the right atrium; with jugular venous pressure estimated to be 8 cm, then, there is no jugular venous distention on 10/07/2024. Lymphatics: No cervical (anterior/posterior), supraclavicular, infraclavicular, axillary, epitrochlear, or inguinal adenopathy. Chest: Symmetric rise and fall with respirations. Non-tender to palpation. s/p direct laryngoscopy with subsequent video laryngoscopy (10/05/2024, 1:43pm, Critical Care Dr. Edgardo Millard)(performed to address patient's acute hypoxic respiratory failure; subsequent finding of "concretion leading to upper airway obstruction."). s/p bronchoscopy (10/06/2024, 2:16pm, [facility] Critical Care Dr. Luis A Chao)(to evaluate patient for possible mucous plugging) revealing "clear airways." Subsequent bronchoscopy (10/06/2024, 6:43pm, Critical Care Rajinder MARLENE Choudhury) revealed "Small amount of thick clear secretions were suctioned out" implying that patient may have been suffering from recurrent mucous plugging as a proximal cause for his acute hypoxic respiratory failure on 10/06/2024, 2:08pm. Lungs: Clear to auscultation and percussion. No audible expiratory wheeze, egophony, pectoriloquy, increase in tactile fremitus, or flatness/dullness to percussion at the bases. Heart: Regular rate. Regular rhythm. S1 and S2 noted. No S3 or S4 summation gallop. No tripartite friction rub. Grade II/ early systolic murmur @ LLSB without radiation to the carotids, axilla, or back, and which remains invariant in regards to the respiratory cycle. Abdomen: Soft, non-tender, non-distended. No rebound, guarding, Logan's sign, or organomegaly. Bowel sounds auscultated in all 4 quadrants. Extremities: No clubbing, cyanosis, or edema in upper extremities or lower extremities bilaterally. 2+ pedal pulses bilaterally. Skin: No decubitus ulcer or enanthem. Genito-urinary: No urethral discharge. + poole catheter with urine output 0.83 mL/kg/hr (10/06/2024, 8:08am to 10/07/2024, 8:08am) Neurology: No myoclonus, tremors, or tics. Results & Data Results & Data Vital Signs (Past 12 Hours) Vital Signs Temp Pulse Resp BP Pulse Ox O2 Del Method FiO2 10/07/24 19:57 40 10/07/24 19:09 38.1 C H 114 H 21 122/70 100 10/07/24 19:00 114 H 22 100 40 10/07/24 17:24 38.0 C H 111 H 19 100 Mechanical Vent 40 10/07/24 17:00 135/73 10/07/24 16:54 38.1 C H 118 H 16 100 10/07/24 16:30 147/92 H 10/07/24 16:00 124/74 10/07/24 16:00 124/74 10/07/24 16:00 38.0 C H 114 H 17 100 Mechanical Vent 40 10/07/24 16:00 40 10/07/24 15:58 115 H 29 H 98 40 10/07/24 15:30 130/80 10/07/24 15:27 37.8 C H 116 H 18 98 10/07/24 15:00 142/87 H 10/07/24 15:00 38.2 C H 116 H 17 99 10/07/24 14:58 139/81 10/07/24 14:57 38.2 C H 117 H 21 100 10/07/24 14:34 90/57 L 10/07/24 14:30 76/50 L 10/07/24 14:30 38.5 C H 116 H 18 97 10/07/24 14:00 103/64 10/07/24 14:00 38.3 C H 125 H 21 98 10/07/24 13:31 95/72 L 10/07/24 13:27 38.1 C H 131 H 27 H 100 10/07/24 13:00 37.9 C H 122 H 21 99 10/07/24 12:42 37.8 C H 115 H 22 95 10/07/24 12:31 128/80 10/07/24 12:30 37.8 C H 107 H 19 94 Mechanical Vent 50 10/07/24 12:01 130/71 10/07/24 12:00 37.9 C H 111 H 20 95 10/07/24 12:00 50 10/07/24 11:31 177/84 H 10/07/24 11:27 37.9 C H 120 H 24 100 10/07/24 11:06 37.9 C H 120 H 31 H 97 10/07/24 11:00 131/68 10/07/24 10:57 38.0 C H 120 H 33 H 100 10/07/24 10:30 100/62 10/07/24 10:27 38.1 C H 113 H 28 H 96 10/07/24 10:10 108 H 25 H 50 10/07/24 10:00 38.1 C H 115 H 23 93 Mechanical Vent 50 10/07/24 10:00 98/59 L 10/07/24 09:30 133/79 10/07/24 09:27 38.1 C H 123 H 20 99 10/07/24 09:00 115/63 10/07/24 08:57 38.1 C H 118 H 20 94 10/07/24 08:30 139/78 10/07/24 08:30 139/78 10/07/24 08:30 38.0 C H 121 H 15 97 10/07/24 08:18 38.0 C H 122 H 18 99 Laboratory Results Abnormal lab results 10/07/24 10/07/24 Range/Units 05:11 12:16 RBC 2.93 L (4.70-6.10) M/uL Hgb 10.3 L (14.0-18.0) g/dl Hct 30.9 L (42.0-52.0) % MCV 105.5 H (80.0-100.0) fL MCH 35.2 H (25.0-34.0) pg RDW Std Deviation 58.4 H (36.4-46.3) fL RDW Coeff of Donna 15.0 H (11.5-14.5) % Neut # (Auto) 7.77 H (1.40-6.50) K/uL Lymph # (Auto) 0.77 L (1.20-3.40) K/uL Kay # (Auto) 1.00 H (0.11-0.59) K/uL Immature Gran # (Auto) 0.25 H (0.01-0.20) K/uL VBG pCO2 33 L (38-50) mmHg Chloride 109 H (98-107) mmol/L Carbon Dioxide 20 L (21-32) mmol/L Glucose 109 H (70-99(Fasting)) mg/dl POC Glucose 124 H (70-99) mg/dl Calcium 8.2 L (8.6-10.3) mg/dl Diagnostic Findings Diagnostic Findings CTA chest (10/06/2024, 3:07pm): 1. Negative for pulmonary embolus. 2. Negative for aortic dissection. 3. Bilateral pleural effusions, left side greater than right with atelectatic changes in the lower lobes bilaterally as well as patchy groundglass densities compatible with the recent CHF/ARDS. TTE (10/06/2024, 3:26pm): 1. LVEF 25-30%. Severe global LV dysfunction. 2. Mildly dilated LV. Mild concentric LVH. 3. RV mild to moderately dilated with moderate RV dysfunction. 4. Post mitral valve repair with annuloplasty ring. Normal expected transvalvular gradients and no significant MR. 5. Moderate pulmonary HTN with estimated PASP 50-55 mm Hg. Estimated RAP 15 mm Hg. 6. Compared to prior study on 04/23/2022, no significant changes. (as per CARDS Dr. Chepe Guidry). Flexible bronchoscopy (10/06/2024, 6:43pm, Critical Care Mr. Calvillo Michaelmorgan, MARLENE): "Bronchoscope was advanced down ETT, joyce visualized. The bronchoscope was then withdrawn with the ETT to the just below the vocal chords until transillumination visualized by Dr. Millard and ballotment of tissue noted by myself on the scope. Seeker needle was then placed through anterior neck by Dr. Millard, visualized in good position with brnochoscope and free of the backwall. The guidewire was advanced and visualized going downward towards the joyce. Initial Dilation was performed and again visualized free of the back wall. Serial dilations were completed by Dr. Millard and 6.0 cuffed Trahcestomy with inner cannula was then placed into the trachea, direct visualization with bronchoscope of cuff up and tracheostomy freely in the trachea. The scope and ETT was removed suctioning out small amount of thin bloody secretions. Following securing of the tracheostomy, the brochoscope was then passed down the newly creathed perc trach inner cannula noting no obstruction correct placement noted above the joyce. The right and left mainstem bronchous were inspected that looked clean and pink. Small amount of thick clear secretions were suctioned out. THe bronchoscope was then removed and was noted to be intact. No samples were sent to lab." Lung U/S (10/06/2024, 6:46pm, Critical Care Dr. Edgardo Millard): "Simple appearing left pleural effusion with type a profile with absence of B-lines." Lumbar puncture (10/06/2024, 7:36pm, Critical Care Dr. Edgardo Millard): clear, colorless, WBC 0, RBC 20, cell count 3, glucose 76, protein 43.1, Lyme IgM/IgG pending. Portable CXR (10/06/2024, 7:50pm): 1. Small left pleural effusion with infiltrate and/or atelectasis at the left lung base. Portable CXR (10/06/2024, 7:52am): 1. Stable lines and tubes. 2. Cardiomegaly and AICD with evidence of congestive failure. 3. Left large right pleural effusions with bibasilar consolidation. This is similar to yesterday. PG Care Time/CCT Total # of Minutes Spent Total Time Spent with Patient: Total time spent is greater than 50% in coordination of care (as documented) at patient's floor/unit and/or counseling patient: Coding Level of Care Code 47205 SUB INP/OBS CARE 3/50MIN Diagnoses Acute hypoxic respiratory failure J96.01 HAP (hospital-acquired pneumonia) J18.9; Y95
[2024-10-07] MEDS: CHLORHEXIDINE GLUCONATE 0.12% 480 ML MT SCH (21:08)
[2024-10-08] MEDS: MIDAZOLAM BOLUS FROM BAG IV PRN (00:45)
[2024-10-08 02:13] LABS: Appearance Urine Clear (Clear); Bacteria Urine Automated None Seen (None Seen); Cast Urine Automated 0-2 /lpf (0-2); Epithelial Cell Urine Auto 0-2 /hpf (0-2); Glucose Urine UA Negative (Negative); WBC Urine Automated 0-5 /hpf (0-5)
[2024-10-08 04:24] LABS: Hematocrit (blood only) 29.4 % (42.0-52.0); Hemoglobin 9.6 g/dl (14.0-18.0); Mean Corpuscular Hemoglobin 34.5 pg (25.0-34.0); Mean Corpuscular Volume 105.8 fL (80.0-100.0); Platelet Count 238 K/uL (130-400); RDW Standard Deviation 60.1 fL (36.4-46.3); Red Blood Count 2.78 M/uL (4.70-6.10); White Blood Count 10.59 K/ul (4.8-10.8)
[2024-10-08 04:40] LABS: Alanine Aminotransferase 24.0 U/L (7-52); Alkaline Phosphatase 96.0 U/L (34-104); Anion Gap 7.0 (3-11); Bilirubin,Total 0.6 mg/dl (0.2-1.0); Blood Urea Nitrogen 16.0 mg/dl (6-23); Calcium 8.2 mg/dl (8.6-10.3); Carbon Dioxide 20.0 mmol/L (21-32); Chloride 109.0 mmol/L (98-107); Creatinine Clr Calc Pharmacy 67.8 ml/min; Glucose 84.0 mg/dl (70-99(Fasting)); Magnesium 2.1 mg/dl (1.7-2.4); Potassium 4.2 mmol/L (3.5-5.1); Sodium 136.0 mmol/L (136-145); Total Protein 5.6 gm/dl (6.0-8.3)
[2024-10-08 05:06] LABS: Immature Granulocytes # (auto) 0.14 K/uL (0.01-0.20); Immature Granulocytes % (auto) 1.3 %; Polychromasia 1+
[2024-10-08 05:20] LABS: ANTI-Xa, UFH(UnfractionatedHep 0.26 IU/ml (0.3-0.7)
--- NOTE | 2024-10-08 07:56 | XRay Report ---
EXAM: XR chest 1V portable CLINICAL HISTORY: eval lung adler and lines/tubes TECHNIQUE: Radiograph of chest was acquired. COMPARISON: 10/06/2024 19:50:20 AIRLINE FLIGHT ATTENDANT FINDINGS: Blunting of left costophrenic angle with hazy opacity in left lower zone. Bilateral parahilar bronchovascular congestion. Ovoid radiodense shadow in the cardiac region. Suggest- Correlation with surgical history. The cardiomediastinal silhouette is within normal limits. No acute osseous abnormality. Tracheostomy tube seen in situ. Sternal sutures. Implantable cardiac device in situ. Nasogastric tube noted. PICC line is seen with tip in soft tissue plane in left axilla. IMPRESSION: 1. Blunting of left costophrenic angle with hazy opacity in left lower zone, suggesting left pleural effusion with passive atelectasis of underlying lung segments. 2. Bilateral perihilar bronchovascular congestion. 3. PICC line is seen with tip in soft tissue plane in left axilla. Findings stable compared to previous radiograph. Electronically signed by Shin Quispe 10-08-2024 07:56 AM
[2024-10-08] MEDS: dexMEDEtomidine 200 MCG/50 ML BAG IV SCH (08:02)
--- NOTE | 2024-10-08 08:19 | Critical Care Progress Note ---
Date of Service October 08, 2024 Assessment & Plan (1) Acute alcohol intoxication: Plan: Reason Critically Ill: 69-year-old male with acute agitated delirium PLAN: Neuro: Patient with alcoholic delirium tremens and likely acute delirium from prolonged ICU stay. Starting Precedex infusion. Discontinue Versed. Continue with as needed Ativan. CSF PCR testing negative. Lyme antibody testing pending. CT head 10/06/2024 with diffuse atrophy. Extensive soft tissue thickening in the nasal cavity and nasopharynx. Continue thiamine through NG tube. Check ammonia level. Resp: Patient status post tracheostomy placement 10/06/2024. Previous provider was concerned about upper airway obstruction and thus tracheostomy was performed. Chest x-ray today reveals persistent left pleural effusion similar to yesterday and nonspecific right upper lobe hazy opacities. Zosyn added 10/07/2024 to cover for possible hospital-acquired pneumonia/ventilator acquired. Sputum cultures pending. There was concern for aspiration of tube feeds 10/07/2024. They have been on hold since that time. CV: History nonischemic cardiomyopathy - Continue metoprolol given ongoing tachycardia. Suspect an element of withdrawal, sepsis and intrinsic heart rate playing a role in his tachycardia. Prolonged QT - Avoid antipsychotics for sedatives Echocardiogram with an EF of 25 to 30%. RV mild to moderately dilated. Patient is status post mitral valve repair with annuloplasty ring. Patient with moderate pulmonary hypertension. PASP of 50 to 55 mmHg. Will try to maintain euvolemia. Patient known to cardiology with a history of nonischemic cardiomyopathy. Fluids/Renal: Acute kidney injury: Resolved - Discontinued Serrano catheter and replaced with condom cath again with goals to decrease interventions hopefully decreasing delirium triggers Hypokalemia: Resolved Mild lactic acid acidosis: Resolved Mixed metabolic acidosis: Resolved ID: Patient with low-grade fever and new infiltrates on chest x-ray. CSF PCR negative. Follow CSF cultures. Follow blood and sputum cultures. MRSA screen negative. Continue Zosyn day #2. Pro-Madhav was elevated to 5.78 10/08/2024. GI/Nutrition: Mild transaminitis - Resolved. - Restart tube feeds. Heme: Anemia - Appropriate reticulocytosis, appears to be anemia related to alcohol consumption, folate B12 within acceptable range DVT prophylaxis: Heparin infusion - Presumptive history of prior DVT given calcification of thrombus in mid right femoral vein: Review of chart demonstrates orthopedic injury history to that affected leg - Right upper extremity DVT, history of recent IV starts. Most consistent with provoked DVT, likely needs 3 months of anticoagulation Endocrine: ICU hyperglycemia protocol Vascular access: After losing several IVs and the noted right upper extremity DVT, midline in the left upper extremity Code Status: Full code Disposition: ICU, will likely need transfer to an LTAC given tracheostomy and ongoing withdrawal and delirium I spent 12 minutes reviewing the electronic medical record/relevant imaging, 10 minutes discussing diagnosis and treatment plan with patient/family, and 15 minutes discussing care plan with ancillary staff such as RT/RN/pharmacist/communication consultant/PT/OT/other consulting medical services. CRITICAL CARE TIME I have personally spent 58 minutes of critical care time in the direct management of this patient. This is a life/limb threatening event. This includes time spent evaluating patient, direct bedside care, chart review, placing orders, interpretation of diagnostic studies, discussion with consultants, patient, and family members, as well as other required patient management activities. This time is exclusive of all separately billable procedures, and teaching time and separate from and in addition to any other critical care service time. (2) Acute alcohol intoxication delirium with moderate or severe use disorder: (3) Electrolyte abnormality: (4) Fracture of right tibial plateau: (5) Chronic systolic CHF (congestive heart failure): (6) S/P ICD (internal cardiac defibrillator) procedure: (7) Nonischemic cardiomyopathy: (8) HAP (hospital-acquired pneumonia): Admission and Anticipated Discharge Date Admission Date: September 29, 2024 Subjective Patient remains agitated at times and occasionally follows commands. He remains febrile. He is having thick secretions from his tracheostomy. He is tachycardic. Restraints were placed on him after examining him today given his agitation and concern for potentially pulling out his tracheostomy and NG tube. Review of Systems Review of Systems: Unobtainable due to reduced consciousness Physical Exam Physical Exam: Constitutional: Patient appears to be of their stated age. Tracheostomy in place. NG tube in place. No apparent distress. Eyes: Pupils are equal round and reactive to light. Conjunctivae are normal. Anicteric sclera. Ears nose, mouth and throat:Normal posterior oropharynx. Uvula is midline. Size [address] in place. Sutures in place. Neck: Trachea is midline. Visual inspection is normal. Respiratory: Mildly diminished at the left lung base with crackles. Cardiovascular: Tachycardic.. No murmurs. No edema. Gastrointestinal: Normal bowel sounds, soft, nontender and nondistended. No hepatosplenomegaly noted. Musculoskeletal: No cyanosis. Patient is able to move all extremities. Strength is 5 out of 5 in the upper and lower extremities. Skin: No rashes, warm dry and intact. Neurologic: No obvious focal neurological deficits seen. Psychiatric: Anxious and agitated appearing. Results & Data Results & Data Vital Signs (Past 12 Hours) Vital Signs Temp Pulse Resp BP Pulse Ox FiO2 10/08/24 07:40 123 H 29 H 100 30 10/08/24 06:35 105 H 23 100 40 10/08/24 06:30 136/89 10/08/24 05:21 37.8 C H 113 H 26 H 100 10/08/24 05:18 37.8 C H 113 H 20 100 10/08/24 05:01 139/73 10/08/24 05:01 139/73 10/08/24 04:57 37.7 C H 113 H 32 H 100 10/08/24 04:33 37.9 C H 100 H 20 100 10/08/24 04:30 139/82 10/08/24 04:27 37.9 C H 102 H 20 100 10/08/24 04:00 37.9 C H 102 H 20 100 10/08/24 04:00 40 10/08/24 03:45 38.0 C H 101 H 20 100 10/08/24 03:30 130/81 10/08/24 03:27 38.0 C H 104 H 22 100 10/08/24 03:08 107 H 23 100 40 10/08/24 03:00 38.0 C H 104 H 21 100 10/08/24 03:00 151/87 H 10/08/24 02:30 37.9 C H 106 H 20 100 10/08/24 02:03 38.0 C H 105 H 20 99 10/08/24 02:00 119/62 10/08/24 01:51 38.1 C H 105 H 20 100 10/08/24 01:33 38.2 C H 109 H 20 100 10/08/24 01:30 115/64 10/08/24 01:24 38.2 C H 109 H 20 100 10/08/24 01:00 129/62 10/08/24 01:00 38.2 C H 115 H 24 99 10/08/24 00:36 38.1 C H 115 H 22 98 10/08/24 00:11 133/76 10/08/24 00:03 38.0 C H 117 H 31 H 98 10/08/24 00:00 101 H 10/08/24 00:00 40 10/07/24 23:36 38.0 C H 97 H 19 99 10/07/24 23:30 108/58 L 10/07/24 23:27 38.0 C H 98 H 20 99 10/07/24 23:00 38.1 C H 97 H 19 99 10/07/24 22:30 97/59 L 10/07/24 22:30 38.3 C H 102 H 20 100 10/07/24 22:10 113 H 25 H 99 40 10/07/24 22:01 121/65 10/07/24 22:00 38.1 C H 104 H 23 99 10/07/24 21:33 38.1 C H 115 H 20 100 10/07/24 21:30 143/83 H 10/07/24 21:24 38.2 C H 112 H 23 100 10/07/24 21:00 110/73 10/07/24 21:00 38.2 C H 111 H 20 98 10/07/24 20:30 119/73 10/07/24 20:30 119/73 10/07/24 20:30 38.1 C H 113 H 21 99 10/07/24 20:24 38.1 C H 113 H 22 99 Coding Level of Care Code 77390 CRITICAL CARE 1ST 30-74M Diagnoses Acute alcoholic intoxication with delirium F10.921 Complication of substance-induced condition: with delirium Acute alcohol intoxication delirium with moderate or severe use disorder F10.221 Electrolyte abnormality E87.8 Closed fracture of right tibial plateau, sequela S82.141S Encounter type: sequela Fracture type: closed Chronic systolic CHF (congestive heart failure) I50.22 S/P ICD (internal cardiac defibrillator) procedure Z95.810 Nonischemic cardiomyopathy I42.8 HAP (hospital-acquired pneumonia) J18.9; Y95 (1) Acute alcohol intoxication Complication of substance-induced condition: with delirium Qualified Code(s): F10.921 - Alcohol use, unspecified with intoxication delirium (4) Fracture of right tibial plateau Encounter type: sequela Fracture type: closed Qualified Code(s): S82.141S - Displaced bicondylar fracture of right tibia, sequela
[2024-10-08] MEDS: STAT IV Infusion **Titration per Protocol STA (09:08)
[2024-10-08] MEDS ORDERED: GABAPENTIN 600 MG TAB PO SCH (10:00)
[2024-10-08] MEDS: PEPTAMEN 1.5 CAL 1,000 ML BAG NG SCH (12:18)
[2024-10-08] MEDS: MEROPENEM 500 MG in SYRINGE 0 ML IV SCH (12:19)
[2024-10-08 13:00] LABS: ANTI-Xa, UFH(UnfractionatedHep 0.30 IU/ml (0.3-0.7)
[2024-10-08] MEDS: HYDROmorphone INJ 0.5 MG/0.5 ML SYR IV STA (16:19)
--- NOTE | 2024-10-08 20:31 | Hospitalist Progress Note ---
Date of Service October 08, 2024 Assessment & Plan (1) Acute hypoxic respiratory failure: (2) HAP (hospital-acquired pneumonia): Plan 69 years old male with PMH of FULL CODE @ home, HTN, non-ischemic cardiomyopathy with chronic systolic CHF with LVEF 30%, normal RV systolic function, and indeterminate LV diastolic function, s/p AICD, and ongoing EtOH abuse who presented to [facility] ER on 09/29/2024 with comsplaint of abdominal distention, generally overall feeling unwell. On exam he did not appear anxious, no tremors. No significant ascites appreciated during my physical exam. No RUQ tenderness. Only trace bilateral LE edema. Patient was subsequently admitted to the inpatient hospitalist service @ [facility] on 09/29/2024 with the following diagnoses: 1. Acute ETOH intoxication with ETOH 143.3 mg/dL (09/29/2024, 5:12pm). 2. Acute ETOH withdrawal with last swig of whisky (09/29/2024, 6:00am). 3. Acute hypokalemia with admission K 2.4 mmol/L (09/29/2024, 3:38pm). 4. Acute hypomagnesemia with admission Mg 1.6 mg/dL (09/29/2024, 3:38pm). 5. Acute hypophosphatemia with admission PO4 2.0 mg/dL (, 9:14pm). 6. Acute hypoxic respiratory failure with O2 saturation 71% on room air (09/30/2024, 2:10am), now with O2 saturation 88-89% on 10 liters/minute O2 via oxymask (09/30/2024, 7:30am). 7. Acute hypercapnic respiratory failure with CO2 45 mmol/L (09/30/2024, 7:03am). 8. Acute kidney injury with admission creatinine 2.20 mg/dL (09/29/2024, 3:38pm). 9. Acute lactic acidosis with admission lactic acid #1 4.2 mmol/L (09/30/2024, 3:24pm). 10.Acute exacerbation of chronic systolic CHF with reduced LVEF 30%, normal RV systolic function, inability to assess LV diastolic function due to prior mitral valve repair (as reported on 06/08/2022 TTE, CARDS Dr. Olman Collins). 11.Acute type II NSTEMI with troponin #1 21.8 pg/mL (, 3:38pm) and troponin #2 22.9 pg/mL (, 5:12pm). The following medical issues are being addressed on 10/08/2024: 1. Acute ETOH intoxication with ETOH 143.3 mg/dL (09/29/2024, 5:12pm). Continue ETOH abstinence while in [facility]. 2. Acute ETOH withdrawal with last swig of whisky (09/29/2024, 6:00am). Continue telemetry, CIWA scale scoring with ativan prn, off precedex infusion (since 10/05/2024, 12:31pm infusion), off phenobarbital 32.5mg IV bid (10/03/2024, 9:01pm; 10/04/2024, 8:53am; 10/05/2024, 8:33am), on phenobarbital 30mg PO bid x 5 doses (starting on 10/05/2024, 8:10pm), MVI, thiamine, and folate supplementation. 3. Acute hypokalemia with admission K 2.4 mmol/L (09/29/2024, 3:38pm). PERSISTENT s/p supplementation with KCl 40meq PO x 1 dose (09/29/2024, 6:15pm) with post-supplement K 3.2 mmol/L (09/30/2024, 7:03am) and current K 3.0 mmol/L (09/30/2024, 11:09am). Patient subsequently received KCl 10meq IV q1h x 6 bags (09/30/2024, 12:43pm, 12:44pm, 1:34pm). PERSISTENT with post-supplement K 3.4 mmol/L (10/01/2024, 8:43am). Patient subsequently received KCl 10meq IVv q1h x 4 bags (10/01/2024, 6:47pm). Acute hypokalemia RESOLVED with post-supplement K 3.8 mmol/L (10/02/2024, 4:53am), repeat K 3.5 mmol/L (10/03/2024, 4:27am), repeat K 3.8 mmol/L (10/04/2024, 4:32am), and current K 4.6 mmol/L (10/05/2024, 8:40am). I will check repeat K level in the 10/08/2024 am. Of note, etiology of acute hypokalemia was most probably due to chronic ETOH-mediated berta-uresis. 4. Acute hypomagnesemia with admission Mg 1.6 mg/dL (09/29/2024, 3:38pm). RESOLVED s/p supplement with magnesium sulfate 1g IV x 2 doses (09/29/2024, 6:13pm, 9:42pm) with post-supplement Mg 2.0 mg/dL (09/30/2024, 7:03am), repeat Mg 1.9 mg/dL (10/01/2024, 4:41am), repeat Mg 1.9 mg/dL (10/02/2024, 4:53am), repeat Mg 2.2 mg/dL (10/03/2024, 4:27am), repeat Mg 2.0 mg/dL (10/04/2024, 4:32am), and current Mg 2.0 mg/dL (10/05/2024, 8:40am). I will check repeat Mg level in the 10/08/2024 am. Of note, etiology of acute hypomagnesemia was most probably due to chronic ETOH-mediated magne-uresis. 5. Acute hypophosphatemia with admission PO4 2.0 mg/dL (, 9:14pm). RESOLVED. No KPO4 supplement given repeat, normal PO4 4.0 mg/dL (09/30/2024, 3:24pm), repeat PO4 3.5 mg/dL (10/01/2024, 4:41am), repeat PO4 4.0 mg/dL (10/02/2024, 4:53am), repeat PO4 2.9 mg/dL (10/03/2024, 4:27am). cf., repeat PO4 1.9 mg/dL (10/04/2024, 4:32am). Patient subsequently received KPO4 12 mmol IV x 1 dose (10/04/2024, 6:30am) with post-supplement PO4 2.0 mg/dL (10/04/2024, 9:50am). cf., current PO4 2.5 mg/dL (10/05/2024, 8:40am). Check repeat PO4 level in the 10/08/2024 am, and supplement to attain/maintain PO4 level > 2.5 mg/dL. 6. Acute hypoxic respiratory failure with O2 saturation 71% on room air (09/30/2024, 2:10am), followed by O2 saturation 88-89% on 10 liters/minute O2 via oxymask (09/30/2024, 7:30am), followed by O2 saturation 94% on High Flow oxygen @ 40 L/min, FIO2 = 0.45 (10/01/2024, 6:01pm), followed by O2 saturation 96% on High Flow oxygen @ 40 L/min, FIO2 = 0.40 (10/02/2024, 7:32am). RESOLVED transiently with O2 saturation 99% on 4 L/min O2 via NC (10/02/2024, 12:51pm), O2 saturation 92% on 3 L/min O2 via NC (10/03/2024, 6:00am), O2 saturation 96% on room air (10/04/2024, 10:01am. Etiology of acute hypoxic respiratory failure remains unclear as patient remains afebrile with WBC remaini ng normal (cf., admission WBC 5.56, N56 L30 M12 E1 B1 (09/29/2024, 3:38pm) and repeat WBC 9.38, no differential (09/30/2024, 7:03am) and portable CXR (09/29/2024) negative for infiltrate/consolidation, effusion, cardiomegaly, pulmonary vascular congestion, or pneumothorax (by my review). Subsequently, I ordered procalcitonin (09/30/2024, 2:32pm), lactic acid (09/30/2024, 2:32pm), and portable CXR (09/30/2024, 2:33pm). Subsequently, procalcitonin was normal @ 0.10 ng/mL (09/30/2024, 3:24pm), lactic acid was elevated at 4.2 mmol/L (09/30/2024, 3:24pm), and portable CXR (09/30/2024, 2:33pm) revealed "Stable cardiac valve repair and pacemaker. Stable cardiomegaly with increased pulmonary vascular congestion. There is increased patchy opacity throughout the right lung and at the left lung base. No pleural effusion or pneumothorax." Hence, acute exacerbation of chronic systolic CHF with last recorded LVEF 30% (as noted on 06/08/2022, 1:13pm TTE, CARDS Dr. Olman Collins) may be contributing to patient's acute hypoxic respiratory failure. Subsequently, I ordered TTE for the 10/02/2024 am; In the interim, patient was not started on lasix, but instead, patient was started on metoprolol tatrate 25mg PO bid (10/05/2024, 9:40am), in lieu of his home-scheduled metoprolol succinate XL 50mg PO qam, given BP 149/103 (10/05/2024, 8:03pm). Of note, patient underwent direct laryngoscopy with subsequent video laryngoscopy (10/05/2024, 1:43pm, Critical Care Dr. Edgardo Millard)(performed to address patient's acute hypoxic respiratory failure; subsequent finding of "concretion leading to upper airway obstruction.") Of note, patient was intubated emergently during [facility] (10/06/2024, 2:08pm, [facility] ER Dr. Ponce Oleary) to address acute hypoxic respiratory failure with O2 sat 60% on room air (10/06/2024, 1:51pm), of unclear etiology, with subsequent bronchoscopy (10/06/2024, 2:16pm, [facility] Critical Care Dr. Luis A Chao)(to evaluate patient for possible mucous plugging) revealing "clear airways." Of note, patient subsequently underwent workup to evaluate the etiology of sarkis ent's acute hypoxic respiratory failure on 10/06/2024, 1:51pm with O2 sat 60% on room air (10/06/2024, 1:51pm), which included the following tests: A. CTA chest (10/06/2024, 3:07pm): 1. Negative for pulmonary embolus. 2. Negative for aortic dissection. 3. Bilateral pleural effusions, left side greater than right with atelectatic changes in the lower lobes bilaterally as well as patchy groundglass densities compatible with the recent CHF/ARDS. B. TTE (10/06/2024, 3:26pm): 1. LVEF 25-30%. Severe global LV dysfunction. 2. Mildly dilated LV. Mild concentric LVH. 3. RV mild to moderately dilated with moderate RV dysfunction. 4. Post mitral valve repair with annuloplasty ring. Normal expected transvalvular gradients and no significant MR. 5. Moderate pulmonary HTN with estimated PASP 50-55 mm Hg. Estimated RAP 15 mm Hg. 6. Compared to prior study on 04/23/2022, no significant changes. (as per CAR[facility] Dr. Chepe Guidry). C. Flexible bronchoscopy (10/06/2024, 6:43pm, Critical Care Bowen Calvillo Macey, [employer]): "Bronchoscope was advanced down ETT, joyce visualized. The bronchoscope was then withdrawn with the ETT to the just below the vocal chords until transillumination visualized by Dr. Millard and ballotment of tissue noted by myself on the scope. Seeker needle was then placed through anterior neck by Dr. Millard, visualized in good position with brnochoscope and free of the backwall. The guidewire was advanced and visualized going downward towards the joyce. Initial Dilation was performed and again visualized free of the back wall. Serial dilations were completed by Dr. Millard and 6.0 cuffed Trahcestomy with inner cannula was then placed into the trachea, direct visualization with bronchoscope of cuff up and tracheostomy freely in the trachea. The scope and ETT was removed suctioning out small amount of thin bloody secretions. Following securing of the tracheostomy, the brochoscope was then passed down the newly creathed perc trach inner cannula noting no obstruction correct placement noted above the joyce. The right and left mainstem bronchous were inspected that looked clean and pink. Small amount of thick clear secretions were suctioned out. THe bronchoscope was then removed and was noted to be intact. No samples were sent to lab." D. Lung U/S (10/06/2024, 6:46pm, Critical Care Dr. Edgardo Millard): "Simple appearing left pleural effusion with type a profile with absence of B-lines." E. Lumbar puncture (10/06/2024, 7:36pm, Critical Care Dr. Edgardo Millard): clear, colorless, WBC 0, RBC 20, cell count 3, glucose 76, protein 43.1, Lyme IgM/IgG pending. F. Portable CXR (10/06/2024, 7:50pm): 1. Small left pleural effusion with infiltrate and/or atelectasis at the left lung base. G. Portable CXR (10/06/2024, 7:52am): 1. Stable lines and tubes. 2. Cardiomegaly and AICD with evidence of congestive failure. 3. Left large right pleural effusions with bibasilar consolidation. This is similar to yesterday. In sum, given the development of bibasilar consolidation with bilateral effusions (as noted on 10/06/2024, 7:52am portable CXR), combined with procalcitonin levels that remain consistently elevated above 0.20 ng/mL since 10/02/2024 (see below), I surmise that this patient has developed an acute bibasilar Hospital-Acquired Pneumonia (HAP) with effusions AFTER being admitted to [facility] on 09/30/2024. Moreover, acute bibasilar HAP is most likely the etiology for patient's acute hypoxic respiratory failure that preceded announcement of Code Purple (10/06/2024, 2:08pm, [facility] ER Dr. Ponce Oleary). cf., procalcitonin #1 0.10 ng/mL (09/30/2024, 3:24pm) cf., procalcitonin #2 0.15 ng/mL (10/01/2024, 4:41am). cf., procalcitonin #3 0.35 ng/mL (10/02/2024, 4:53am). cf., procalcitonin #4 1.00 ng/mL (10/03/2024, 9:38am). cf., procalcitonin #5 0.40 ng/mL (10/05/2024, 8:40am). cf., procalcitonin #6 0.24 ng/mL (10/06/2024, 8:18am). cf., procalcitonin #7 0.31 ng/mL (10/07/2024, 5:11am). To treat acute bibasilar Hospital-Associated Pneumonia (HAP) with effusions, patient was started on zosyn 4.5g IV q8 (day #1 on 10/07/2024, 12:58pm). Given that patient tested negative for MRSA twice (see below), the likelihood that patient has developed an acute staphylococcal bibasilar HAP remains very low, and hence, empiric vancomycin was NOT started on 10/07/2024. cf., MRSA nares PCR screen negative (09/30/2024, 1:00pm). cf., MRSA nares PCR screen negative (10/07/2024, 8:15am). Subsequently, patient's procalcitonin levels continue to increase: cf., procalcitonin #8 5.78 ng/mL (10/08/2024, 4:06am). cf., procalcitonin #9 10.10 ng/mL (10/08/2024, 9:18am). cf., procalcitonin levels > 0.20 ng/mL in the setting of pleural effusion are c onsistent with acute bacterial infection. Hence, I surmise that zosyn 4.5g IV q8 is not sufficient to treat patient's acute bibasilar Hospital-Associated Pneumonia (HAP) with effusions. Hence, I discontinued zosyn 4.5g IV q8 and I started patient on meropenem 500mg IV q6 (day #1 on 10/08/2024, 12:19pm, 6:00pm) to provide broader coverage against gram negative aerobes and gram negative anaerobes. Of final note, I will check vitals, chest exam, WBC w/diff, lactic acid, and procalcitonin levels in the 10/09/2024 am. 7. Acute hypercapnic respiratory failure with CO2 45 mmol/L (09/30/2024, 7:03am) and CO2 35 mmol/L (10/01/2024, 4:41am), RESOLVED with CO2 29 mmol/L (10/02/2024, 4:53am). Etiology of of acute hypercapnic respiratory failure allison ins unclear in this patient who is still hyperventilating at: 29 breaths/minute (09/30/2024, 7:30am) 34 breaths/minute (09/30/2024, 1:03pm) 24 breaths/minute (10/01/2024, 8:00 am and 6:01pm) 22 breaths/minute (10/04/2024, 10:01am). 24 breaths/minute (10/05/2024, 8:03pm). Of note, patient underwent portable CXR (09/30/2024, 2:33pm) to check for evidence of COPD, bronchiectasis/fibrosis, and/or atelectasis, which can lead to hypercapnia, and none of which were observed on portable CXR (09/30/2024, 2:33pm). 8. Acute kidney injury with admission creatinine 2.20 mg/dL (09/29/2024, 3:38pm), RESOLVED. cf., admission creatinine 2.20 mg/dL (09/29/2024, 3:38pm). cf., repeat creatinine 1.90 mg/dL (09/30/2024, 7:03am). cf., repeat creatinine 1.88 mg/dL (10/01/2024, 4:41am). cf., repeat creatinine 1.91 mg/dL (10/02/2024, 4:53am). cf., repeat creatinine 1.58 mg/dL (10/03/2024, 4:27am). cf., repeat creatinine 1.24 mg/dL (10/04/2024, 4:32am). cf., current creatinine 1.10 mg/dL (10/05/2024, 8:40am). cf., baseline creatinine range, 0.95 mg/dL (04/25/2022, 6:21am) to 1.37 mg/dL (07/04/2024, 7:12am). Etiology of acute kidney injury remains unclear, but may be due to patient's home-scheduled sacubitril 49mg - valsartan 51mg PO bid, lasix 40mg PO qam, spironolactone 25mg PO daily, and lisinopril 20mg PO daily given the potential f or any/all of these agents to cause further renal embarrassment. Hence, I have opted to hold OFF patient's home-scheduled sacubitril 49mg - valsartan 51mg PO bid, lasix 40mg PO qam, spironolactone 25mg PO daily, and lisinopril 20mg PO daily. Observe. 9. Acute lactic acidosis with admission lactic acid #1 4.2 mmol/L (09/30/2024, 3:24pm), RESOLVED. cf., lactic acid # 2 4.3 mmol/L (09/30/2024, 6:18pm). cf., lactic acid # 3 3.6 mmol/L (09/30/2024, 8:00pm). cf., lactic acid # 4 3.3 mmol/L (10/01/2024, 4:41am). cf., lactic acid # 5 5.7 mmol/L (10/01/2024, 9:04am). cf., lactic acid # 6 2.3 mmol/L (10/01/2024, 7:07pm). cf., lactic acid # 7 1.4 mmol/L (10/02/2024, 4:53am). cf., lactic acid # 8 2.9 mmol/L (10/03/2024, 9:38am). cf., lactic acid # 9 1.5 mmol/L (10/04/2024, 4:32am). cf., lactic acid #10 5.8 mmol/L (10/05/2024, 8:40am). cf., lactic acid #11 1.5 mmol/L (10/05/2024, 12:41pm). Etiology of acute lactic acidosis remains unclear, but is probably due to a combination of (a) acute dehydration from chronic ETOH-mediated diuresis and (b) [id number] transaminitis, which in turn, is due to chronic alcoholic hepatitis. In addition, I surmise that the propylene glycol solvent used in the phenobarbital IV formulation @ [facility] contributed to increased formation of lactic acid. Now that patient is off phenobarbital 32.5mg IV bid (10/03/2024, 9:01pm; 10/04/2024, 8:53am; 10/05/2024, 8:33am), and on phenobarbital 30mg PO bid x 5 doses (starting on 10/05/2024, 8:10pm), I do not expect recurrence of acute lactic acidosis. cf., AST 58 U/L, ALT 25 U/L, ALK PHOS 168 U/L (09/29/2024, 3:38pm). cf., AST 45 U/L, ALT 22 U/L, ALK PHOS 164 U/L (09/30/2024, 7:03am). cf., AST 41 U/L, ALT 18 U/L, ALK PHOS 153 U/L (10/01/2024, 4:41am). cf., baseline AST range, 18 - 33 U/L (10/22/2020 - 07/04/2024), ALT range, 12-38 U/L (10/22/2020 - 07/04/2024), ALK PHOS range, 110-124 U/L (03/09/2022 - 07/04/2024). To address (a), patient received 1 liter of 0.9% NS @ 999 mL/hr (09/29/2024, 6:16pm), followed by 1 liter of lactated Ringers @ 125 mL/hr (09/29/2024, 9:42pm) in [facility] ER. Patient is being held off further IV fluid rehydration therapy in order to avoid further cardio-pulmonary embarrassment. 10. Acute exacerbation of chronic systolic CHF with reduced LVEF 30%, normal RV systolic function, inability to assess LV diastolic function due to prior mitral valve repair (as reported on 06/08/2022 TTE, [facility] Dr. Olman Collins). s/p AICD. Restart home-scheduled metoprolol succinate 50mg PO qam with a first dose now on 10/05/2024, 9:06pm. Hold OFF home-scheduled sacubitril 49mg - valsartan 51mg PO bid, lasix 40mg PO qam, spironolactone 25mg PO daily, and lisinopril 20mg PO daily, given the potential for any/all of these agents to cause further renal embarrassment. cf., admission creatinine 2.20 mg/dL (09/29/2024, 3:38pm). cf., repeat creatinine 1.90 mg/dL (09/30/2024, 7:03am). cf., repeat creatinine 1.88 mg/dL (10/01/2024, 4:41am). cf., repeat creatinine 1.91 mg/dL (10/02/2024, 4:53am). cf., repeat creatinine 1.58 mg/dL (10/03/2024, 4:27am). cf., repeat creatinine 1.24 mg/dL (10/04/2024, 4:32am). cf., current creatinine 1.10 mg/dL (10/05/2024, 8:40am). cf., baseline creatinine range, 0.95 mg/dL (04/25/2022, 6:21am) to 1.37 mg/dL (07/04/2024, 7:12am). 11. Acute type II NSTEMI with troponin #1 21.8 pg/mL (, 3:38pm) and troponin #2 22.9 pg/mL (, 5:12pm). Etiology of nominally elevated troponin levels remains unclear, but is most probably due to demand ischemia, which in turn, is due to (a) acute hypoxic respiratory failure, which in turn, is due to (b) acute exacerbation of chronic systolic CHF with reduced LVEF 30%, normal RV systolic function, inability to assess LV diastolic function due to prior mitral valve repair (as reported on 06/08/2022 TTE, CARDS Dr. Olman Collins). Hence, I have opted to observe this laboratory anomaly at this time. 12. Disposition. Code status, FULL CODE @ home. ALS as required. Condition of patient remains tenuous, if not terminal, given the severity of patient's medical problems noted above. To this end, I called and spoke with the patient's daughter, Ms. Carla Tidwell ( ) on 10/06/2024, 8:35pm, and she concurred with the assessment and plan as described above. Admission and Anticipated Discharge Date Admission Date: September 29, 2024 Subjective Unavailable as patient remains lethargic, obtunded, and non-verbal, since being intubated and mechanically ventilated since [facility] (10/06/2024, 2:08pm) to address acute hypoxic respiratory failure with O2 sat 60% on room air (10/06/2024, 1:51pm), of unclear etiology, with subsequent bronchoscopy (10/06/2024, 2:16pm, [facility] Critical Care Dr. Luis A Chao)(to evaluate patient for possible mucous plugging) revealing "clear airways." Subsequent bronchosc opy (10/06/2024, 6:43pm, Critical Care Mr. Calvillo MARLENE Choudhury) revealed " Small amount of thick clear secretions were suctioned out" implying that patient may have been suffering from recurrent mucous plugging as a proximal cause for his acute hypoxic respiratory failure on 10/06/2024, 2:08pm. Review of Systems Constitutional: Unavailable as patient remains lethargic, obtunded, and non-verbal, since being intubated and mechanically ventilated since Code (10/06/2024, 2:08pm) to address acute hypoxic respiratory failure with O2 sat 60% on room air (10/06/2024, 1:51pm), of unclear etiology, with subsequent bronchoscopy (10/06/2024, 2:16pm, [facility] Critical Care Dr. Luis A Chao)(to evaluate patient for possible mucous plugging) revealing "clear airways." Subsequent bronchoscopy (10/06/2024, 6:43pm, Critical Care Mr. Calvillo MARLENE Choudhury) revealed "Small amount of thick clear secretions were suctioned out" implying that patient may have been suffering from recurrent mucous plugging as a proximal cause for his acute hypoxic respiratory failure on 10/06/2024, 2:08pm. Physical Exam Constitutional: General: Comfortable, intubated emergently during (10/06/2024, 2:08pm, [facility] ER Dr. Ponce Oleary) to address acute hypoxic respiratory failure with O2 sat 60% on room air (10/06/2024, 1:51pm), of unclear etiology, with subsequent bronchoscopy (10/06/2024, 2:16pm, [facility] Critical Care Dr. Luis A Chao)(to evaluate patient for possible mucous plugging) revealing "clear airways." Now on pressure support @ 8 cm H2O, PEEP 5 cm H2O, FIO2 = 0.4 (10/08/2024, 9:35am). HEENT: Normocephalic, atraumatic. Pupils equally round and reactive to light. No nystagmus, gaze paresis, anisocoria, miosis, mydriasis, hyphema, scleral injection, conjunctivitis, or pterygium. No otorrhea. No pharyngeal erythema, edema, or discharge. NG tube with [employer] HN 1.2 jovanni on hold. Neck: Supple, no stridor, bruit, goiter, or hepato-jugular reflux. Jugular venous pressure is estimated to be 3 cm above the sternal angle of [place], which in turn, is 5 cm above the level of the right atrium; with jugular venous pressure estimated to be 8 cm, then, there is no jugular venous distention on 10/08/2024. Lymphatics: No cervical (anterior/posterior), supraclavicular, infraclavicular, axillary, epitrochlear, or inguinal adenopathy. Chest: Symmetric rise and fall with respirations. Non-tender to palpation. s/p direct laryngoscopy with subsequent video laryngoscopy (10/05/2024, 1:43pm, Critical Care Dr. Edgardo Millard)(performed to address patient's acute hypoxic respiratory failure; subsequent finding of "concretion leading to upper airway obstruction."). s/p bronchoscopy (10/06/2024, 2:16pm, [facility] Critical Care Dr. Luis A Chao)(to evaluate patient for possible mucous plugging) revealing "clear airways." Subsequent bronchoscopy (10/06/2024, 6:43pm, Critical Care MARLENE Milligan) revealed "Small amount of thick clear secretions were suctioned out" implying that patient may have been suffering from recurrent mucous plugging as a proximal cause for his acute hypoxic respiratory failure on 10/06/2024, 2:08pm. Lungs: Clear to auscultation and percussion. No audible expiratory wheeze, egophony, pectoriloquy, increase in tactile fremitus, or flatness/dullness to percussion at the bases. Heart: Regular rate. Regular rhythm. S1 and S2 noted. No S3 or S4 summation gallop. No tripartite friction rub. Grade II/ early systolic murmur @ LLSB without radiation to the carotids, axilla, or back, and which remains invariant in regards to the respiratory cycle. Abdomen: Soft, non-tender, non-distended. No rebound, guarding, Logan's sign, or organomegaly. Bowel sounds auscultated in all 4 quadrants. Extremities: No clubbing, cyanosis, or edema in upper extremities or lower extremities bilaterally. 2+ pedal pulses bilaterally. Skin: No decubitus ulcer or enanthem. Genito-urinary: No urethral discharge. + poole catheter with urine output 0.44 mL/kg/hr (10/07/2024, 8:12am to 10/08/2024, 8:12am) Neurology: No myoclonus, tremors, or tics. Results & Data Results & Data Vital Signs (Past 12 Hours) Vital Signs Temp Pulse Pulse Resp BP Pulse Ox O2 Del Method 10/08/24 20:09 37.3 C 74 0 L 100 10/08/24 20:05 76 19 100 Trach Collar 10/08/24 20:00 Trach Collar 10/08/24 19:30 121/72 10/08/24 19:30 121/72 10/08/24 19:21 37.5 C 73 0 L 99 10/08/24 19:00 122/75 10/08/24 19:00 122/75 10/08/24 19:00 122/75 10/08/24 19:00 37.6 C H 73 0 L 100 10/08/24 18:30 126/74 10/08/24 18:15 37.6 C H 78 0 L 100 10/08/24 18:00 37.5 C 81 0 L 100 10/08/24 17:30 136/81 10/08/24 17:30 136/81 10/08/24 17:30 37.6 C H 77 97 Trach Collar 10/08/24 17:09 37.7 C H 75 96 10/08/24 16:42 79 19 100 Trach Collar 10/08/24 16:30 115/64 10/08/24 16:30 115/64 10/08/24 16:30 115/64 10/08/24 16:24 37.7 C H 75 20 97 10/08/24 16:00 37.5 C 80 20 100 10/08/24 15:19 70 10/08/24 15:00 122/66 10/08/24 15:00 122/66 10/08/24 15:00 37.7 C H 70 14 100 CPAP, Mechanical Vent 10/08/24 14:30 37.7 C H 76 20 97 10/08/24 14:00 114/52 L 10/08/24 14:00 37.7 C H 71 20 97 10/08/24 13:30 118/57 L 10/08/24 13:00 37.7 C H 75 0 L 97 10/08/24 13:00 121/60 10/08/24 12:30 90/51 L 10/08/24 12:30 90/51 L 10/08/24 12:30 90/51 L 10/08/24 12:30 90/51 L 10/08/24 12:30 37.1 C 77 30 H 100 10/08/24 12:00 115/65 10/08/24 12:00 115/65 10/08/24 12:00 115/65 10/08/24 12:00 37.8 C H 79 23 100 10/08/24 12:00 10/08/24 11:30 115/67 10/08/24 11:30 37.8 C H 79 28 H 100 10/08/24 11:00 37.9 C H 78 21 99 CPAP, Mechanical Vent 10/08/24 11:00 103/58 L 10/08/24 10:30 93/55 L 10/08/24 10:27 38.1 C H 75 21 97 10/08/24 10:00 94/51 L 10/08/24 09:51 84 20 96 10/08/24 09:30 102/77 10/08/24 09:21 38.6 C H 96 H 20 96 10/08/24 09:02 104/61 10/08/24 09:00 38.6 C H 99 H 32 H 98 10/08/24 08:41 117/71 10/08/24 08:36 38.6 C H 110 H 30 H 100 10/08/24 08:33 38.6 C H 108 H 36 H 100 10/08/24 08:30 136/96 10/08/24 08:27 38.6 C H 114 H 35 H 99 Mechanical Vent O2 Flow Rate FiO2 10/08/24 20:09 10/08/24 20:05 8 35 10/08/24 20:00 40 10/08/24 19:30 10/08/24 19:30 10/08/24 19:21 10/08/24 19:00 10/08/24 19:00 10/08/24 19:00 10/08/24 19:00 10/08/24 18:30 10/08/24 18:15 10/08/24 18:00 10/08/24 17:30 10/08/24 17:30 10/08/24 17:30 40 10/08/24 17:09 10/08/24 16:42 8 40 10/08/24 16:30 10/08/24 16:30 10/08/24 16:30 10/08/24 16:24 10/08/24 16:00 10/08/24 15:19 10/08/24 15:00 10/08/24 15:00 10/08/24 15:00 40 10/08/24 14:30 10/08/24 14:00 10/08/24 14:00 10/08/24 13:30 10/08/24 13:00 10/08/24 13:00 10/08/24 12:30 10/08/24 12:30 10/08/24 12:30 10/08/24 12:30 10/08/24 12:30 10/08/24 12:00 10/08/24 12:00 10/08/24 12:00 10/08/24 12:00 10/08/24 12:00 40 10/08/24 11:30 10/08/24 11:30 10/08/24 11:00 40 10/08/24 11:00 10/08/24 10:30 10/08/24 10:27 10/08/24 10:00 10/08/24 09:51 40 10/08/24 09:30 10/08/24 09:21 10/08/24 09:02 10/08/24 09:00 10/08/24 08:41 10/08/24 08:36 10/08/24 08:33 10/08/24 08:30 10/08/24 08:27 40 Laboratory Results Procalcitonin #1 0.10 ng/mL (09/30/2024, 3:24pm). Procalcitonin #2 0.15 ng/mL (10/01/2024, 4:41am). Procalcitonin #3 0.35 ng/mL (10/02/2024, 4:53am). Procalcitonin #4 1.00 ng/mL (10/03/2024, 9:38am). Procalcitonin #5 0.40 ng/mL (10/05/2024, 8:40am). Procalcitonin #6 0.24 ng/mL (10/06/2024, 8:18am). Procalcitonin #7 0.31 ng/mL (10/07/2024, 5:11am). Procalcitonin #8 5.78 ng/mL (10/08/2024, 4:06am). Procalcitonin #9 10.10 ng/mL (10/08/2024, 9:18am). cf., procalcitonin levels > 0.20 ng/mL in the setting of pleural effusion are consistent with acute bacterial infection. PG Care Time/CCT Total # of Minutes Spent Total Time Spent with Patient: Total time spent is greater than 50% in coordination of care (as documented) at patient's floor/unit and/or counseling patient: Coding Level of Care Code 55969 SUB INP/OBS CARE 3/50MIN Diagnoses Acute hypoxic respiratory failure J96.01 HAP (hospital-acquired pneumonia) J18.9; Y95
[2024-10-08] MEDS: PIPERACILLIN/TAZOBACTAM 4.5 GM/100 ML BAG IV ONE (21:58)
[2024-10-08] MEDS: BANATROL TF 60 ML LIQUID PKT PEG SCH (21:59)
[2024-10-09] MEDS: PIPERACILLIN/TAZOBACTAM 4.5 GM/100 ML BAG IV SCH (03:54)
[2024-10-09 04:42] LABS: Hematocrit (blood only) 27.9 % (42.0-52.0); Hemoglobin 9.1 g/dl (14.0-18.0); Immature Granulocytes # (auto) 0.19 K/uL (0.01-0.20); Immature Granulocytes % (auto) 1.8 %; Mean Corpuscular Hemoglobin 35.0 pg (25.0-34.0); Mean Corpuscular Volume 107.3 fL (80.0-100.0); Platelet Count 267 K/uL (130-400); RDW Standard Deviation 59.2 fL (36.4-46.3); Red Blood Count 2.60 M/uL (4.70-6.10); White Blood Count 10.32 K/ul (4.8-10.8)
[2024-10-09 04:58] LABS: Alanine Aminotransferase 19.0 U/L (7-52); Albumin Globulin Ratio 0.8 (0.9-2); Alkaline Phosphatase 91.0 U/L (34-104); Anion Gap 7.0 (3-11); Bilirubin,Total 0.5 mg/dl (0.2-1.0); Blood Urea Nitrogen 16.0 mg/dl (6-23); Calcium 8.1 mg/dl (8.6-10.3); Carbon Dioxide 19.0 mmol/L (21-32); Chloride 109.0 mmol/L (98-107); Creatinine Clr Calc Pharmacy 83.7 ml/min; Globulin 3.1 gm/dl (2.5-4.0); Glucose 105.0 mg/dl (70-99(Fasting)); Potassium 3.9 mmol/L (3.5-5.1); Sodium 135.0 mmol/L (136-145); Total Protein 5.6 gm/dl (6.0-8.3)
[2024-10-09 05:13] LABS: ANTI-Xa, UFH(UnfractionatedHep 0.35 IU/ml (0.3-0.7)
--- NOTE | 2024-10-09 07:38 | XRay Report ---
EXAM: XR chest 1V portable CLINICAL HISTORY: Pneumonia. TECHNIQUE: X-ray images of the chest were obtained in Anteroposterior (AP) projection. COMPARISON: 10/08/2024. FINDINGS: Blunting of the left costophrenic angle with hazy opacity in the left lower zone. Bilateral parahilar bronchovascular congestion. The cardiomediastinal silhouette is within normal limits. No acute osseous abnormality. Tracheostomy tube seen in situ about 3 cm from the joyce. Sternal sutures. The cardiac pacemaker is noted to be tip below the left hemidiaphragm. PICC line is seen. IMPRESSION: 1. Blunting of left costophrenic angle with hazy opacity in left lower zone, suggesting left pleural effusion with partial atelectasis of underlying lung segments. 2. Bilateral perihilar bronchovascular congestion. 3. PICC line is seen. 4. Tracheostomy tube seen in situ about 3 cm from the joyce. 5. Stable Findings compared to the previous radiograph. Electronically signed by Claudio Pavon 10-09-2024 07:38 AM
--- NOTE | 2024-10-09 08:10 | Critical Care Progress Note ---
Date of Service October 09, 2024 Assessment & Plan (1) Acute alcohol intoxication: Plan: Reason Critically Ill: 69-year-old male with acute agitated delirium PLAN: Neuro: Patient with alcoholic delirium tremens and likely acute delirium from prolonged ICU stay. Discontinuing Precedex infusion. Continue with as needed Ativan. CSF PCR testing negative. Lyme antibody testing pending. CT head 10/06/2024 with diffuse atrophy. Extensive soft tissue thickening in the nasal cavity and nasopharynx. Continue thiamine through NG tube. Ammonia levels unremarkable. Resp: Patient status post tracheostomy placement 10/06/2024. Previous provider was concerned about upper airway obstruction and thus tracheostomy was performed. Chest x-ray reveals persistent left pleural effusion similar to yesterday and nonspecific right upper lobe hazy opacities. Pleural ultrasound performed by tx 10/08/2024 revealed atelectasis of the left lower lobe with minimal free-flowing pleural effusion. Zosyn added 10/07/2024 to cover for possible hospital-acquired pneumonia/ventilator acquired. Hospitalist change Zosyn to meropenem 10/08/2024 which has been changed back to Zosyn. Concern of meropenem leading to further encephalopathy. I do not think the patient needs escalated to meropenem at this time. Sputum cultures pending. There was concern for aspiration of tube feeds 10/07/2024. CV: History nonischemic cardiomyopathy - Continue metoprolol given ongoing tachycardia. Suspect an element of withdrawal, sepsis and intrinsic heart rate playing a role in his tachycardia. Prolonged QT - Avoid antipsychotics for sedatives Echocardiogram with an EF of 25 to 30%. RV mild to moderately dilated. Patient is status post mitral valve repair with annuloplasty ring. Patient with moderate pulmonary hypertension. PASP of 50 to 55 mmHg. Will try to maintain euvolemia. Patient known to cardiology with a history of nonischemic cardiomyopathy. Fluids/Renal: Acute kidney injury: Resolved - Discontinued Serrano catheter and replaced with condom cath again with goals to decrease interventions hopefully decreasing delirium triggers Hypokalemia: Resolved Mild lactic acid acidosis: Resolved Mixed metabolic acidosis: Resolved ID: Patient with low-grade fever and new infiltrates on chest x-ray. CSF PCR negative. CSF cultures negative to date. Follow blood and sputum cultures. MRSA screen negative. Continue Zosyn day #3. Pro-Madhav was elevated to 5.78 10/08/2024. GI/Nutrition: Mild transaminitis - Resolved. - Restart tube feeds. Heme: Anemia - Appropriate reticulocytosis, appears to be anemia related to alcohol consumption, folate B12 within acceptable range DVT prophylaxis: Heparin infusion - Presumptive history of prior DVT given calcification of thrombus in mid right femoral vein: Review of chart demonstrates orthopedic injury history to that affected leg - Right upper extremity DVT, history of recent IV starts. Most consistent with provoked DVT, likely needs 3 months of anticoagulation Endocrine: ICU hyperglycemia protocol Vascular access: After losing several IVs and the noted right upper extremity DVT, midline in the left upper extremity Code Status: Full code Disposition: Will downgrade to progressive care unit as he is no longer requiring the ventilator. (2) Acute alcohol intoxication delirium with moderate or severe use disorder: (3) Electrolyte abnormality: (4) Fracture of right tibial plateau: (5) Chronic systolic CHF (congestive heart failure): (6) S/P ICD (internal cardiac defibrillator) procedure: (7) Nonischemic cardiomyopathy: (8) HAP (hospital-acquired pneumonia): Admission and Anticipated Discharge Date Admission Date: September 29, 2024 Subjective Patient seen and examined. Much more awake and alert today. Currently on trach collar and has been since yesterday afternoon. Tolerating this well. Hemodynamically stable. Currently on low-dose Precedex. Review of Systems Review of Systems: All systems reviewed & are unremarkable except as noted in HPI & below Physical Exam Physical Exam: Constitutional: Patient appears to be of their stated age. Tracheostomy in place. NG tube in place. No apparent distress. Eyes: Pupils are equal round and reactive to light. Conjunctivae are normal. Anicteric sclera. Ears nose, mouth and throat:Normal posterior oropharynx. Uvula is midline. Size [address] in place. Sutures in place. Neck: Trachea is midline. Visual inspection is normal. Respiratory: Mildly diminished at the left lung base with crackles. Cardiovascular: Tachycardic.. No murmurs. No edema. Gastrointestinal: Normal bowel sounds, soft, nontender and nondistended. No hepatosplenomegaly noted. Musculoskeletal: No cyanosis. Patient is able to move all extremities. Strength is 5 out of 5 in the upper and lower extremities. Skin: No rashes, warm dry and intact. Neurologic: No obvious focal neurological deficits seen. Psychiatric: Anxious and agitated appearing. Results & Data Results & Data Vital Signs (Past 12 Hours) Vital Signs Temp Pulse Resp BP Pulse Ox 10/09/24 06:00 36.2 C L 68 0 L 100 10/09/24 06:00 144/93 H 10/09/24 05:30 140/87 10/09/24 05:24 36.3 C L 67 0 L 100 10/09/24 05:00 143/85 H 10/09/24 05:00 36.3 C L 64 0 L 100 10/09/24 04:00 36.2 C L 68 0 L 100 10/09/24 04:00 158/99 H 10/09/24 03:30 135/80 10/09/24 03:30 135/80 10/09/24 03:30 135/80 10/09/24 03:15 36.4 C L 59 L 0 L 100 10/09/24 03:00 36.5 C 60 0 L 100 10/09/24 02:30 149/89 H 10/09/24 02:30 149/89 H 10/09/24 02:24 36.5 C 70 0 L 100 10/09/24 02:06 135/79 10/09/24 02:03 36.5 C 73 0 L 135/79 92 10/09/24 01:03 36.5 C 62 0 L 76 L 10/09/24 01:01 121/70 10/09/24 00:57 36.6 C 64 0 L 100 10/09/24 00:39 36.7 C 58 L 0 L 100 10/09/24 00:30 111/70 10/09/24 00:27 36.8 C 66 0 L 100 10/09/24 00:00 37.0 C 68 0 L 99 10/09/24 00:00 121/70 10/09/24 00:00 68 10/08/24 23:30 131/79 10/08/24 23:03 37.1 C 78 0 L 100 10/08/24 23:00 122/67 10/08/24 22:33 37.1 C 78 0 L 98 10/08/24 22:30 140/78 10/08/24 22:00 37.1 C 79 0 L 94 10/08/24 21:30 154/85 H 10/08/24 21:21 37.1 C 77 0 L 100 10/08/24 21:06 37.1 C 77 0 L 100 10/08/24 20:30 37.3 C 72 0 L 99 10/08/24 20:30 120/74 10/08/24 20:09 37.3 C 74 0 L 100 Coding Level of Care Code 78818 SUB INP/OBS CARE 3/50MIN Diagnoses Acute alcoholic intoxication with delirium F10.921 Complication of substance-induced condition: with delirium Acute alcohol intoxication delirium with moderate or severe use disorder F10.221 Electrolyte abnormality E87.8 Closed fracture of right tibial plateau, sequela S82.141S Encounter type: sequela Fracture type: closed Chronic systolic CHF (congestive heart failure) I50.22 S/P ICD (internal cardiac defibrillator) procedure Z95.810 Nonischemic cardiomyopathy I42.8 HAP (hospital-acquired pneumonia) J18.9; Y95 (1) Acute alcohol intoxication Complication of substance-induced condition: with delirium Qualified Code(s): F10.921 - Alcohol use, unspecified with intoxication delirium (4) Fracture of right tibial plateau Encounter type: sequela Fracture type: closed Qualified Code(s): S82.141S - Displaced bicondylar fracture of right tibia, sequela
[2024-10-09] MEDS: FUROSEMIDE 40 MG TAB PO SCH (10:51)
[2024-10-09] MEDS: PEPTAMEN 1.5 CAL 1,000 ML BAG NG SCH (15:46)
[2024-10-09] MEDS: ACETAMINOPHEN 1,000 MG/100 ML VIAL IV STA (15:47)
--- NOTE | 2024-10-09 18:43 | Hospitalist Progress Note ---
Date of Service October 09, 2024 Assessment & Plan (1) Acute hypoxic respiratory failure: (2) HAP (hospital-acquired pneumonia): Plan 69 years old male with PMH of FULL CODE @ home, HTN, non-ischemic cardiomyopathy with chronic systolic CHF with LVEF 30%, normal RV systolic function, and indeterminate LV diastolic function, s/p AICD, and ongoing EtOH abuse who presented to [facility] ER on 09/29/2024 with comsplaint of abdominal distention, generally overall feeling unwell. On exam he did not appear anxious, no tremors. No significant ascites appreciated during my physical exam. No RUQ tenderness. Only trace bilateral LE edema. Patient was subsequently admitted to the inpatient hospitalist service @ [facility] on 09/29/2024 with the following diagnoses: 1. Acute ETOH intoxication with ETOH 143.3 mg/dL (09/29/2024, 5:12pm). 2. Acute ETOH withdrawal with last swig of whisky (09/29/2024, 6:00am). 3. Acute hypokalemia with admission K 2.4 mmol/L (09/29/2024, 3:38pm). 4. Acute hypomagnesemia with admission Mg 1.6 mg/dL (09/29/2024, 3:38pm). 5. Acute hypophosphatemia with admission PO4 2.0 mg/dL (, 9:14pm). 6. Acute hypoxic respiratory failure with O2 saturation 71% on room air (09/30/2024, 2:10am), now with O2 saturation 88-89% on 10 liters/minute O2 via oxymask (09/30/2024, 7:30am). 7. Acute hypercapnic respiratory failure with CO2 45 mmol/L (09/30/2024, 7:03am). 8. Acute kidney injury with admission creatinine 2.20 mg/dL (09/29/2024, 3:38pm). 9. Acute lactic acidosis with admission lactic acid #1 4.2 mmol/L (09/30/2024, 3:24pm). 10.Acute exacerbation of chronic systolic CHF with reduced LVEF 30%, normal RV systolic function, inability to assess LV diastolic function due to prior mitral valve repair (as reported on 06/08/2022 TTE, CARDS Dr. Olman Collins). 11.Acute type II NSTEMI with troponin #1 21.8 pg/mL (, 3:38pm) and troponin #2 22.9 pg/mL (, 5:12pm). The following medical issues are being addressed on 10/09/2024: 1. Acute ETOH intoxication with ETOH 143.3 mg/dL (09/29/2024, 5:12pm). Continue ETOH abstinence while in [facility]. 2. Acute ETOH withdrawal with last swig of whisky (09/29/2024, 6:00am). Continue telemetry, CIWA scale scoring with ativan prn, off precedex infusion (since 10/05/2024, 12:31pm infusion), off phenobarbital 32.5mg IV bid (10/03/2024, 9:01pm; 10/04/2024, 8:53am; 10/05/2024, 8:33am), on phenobarbital 30mg PO bid x 5 doses (starting on 10/05/2024, 8:10pm), MVI, thiamine, and folate supplementation. 3. Acute hypokalemia with admission K 2.4 mmol/L (09/29/2024, 3:38pm). PERSISTENT s/p supplementation with KCl 40meq PO x 1 dose (09/29/2024, 6:15pm) with post-supplement K 3.2 mmol/L (09/30/2024, 7:03am) and current K 3.0 mmol/L (09/30/2024, 11:09am). Patient subsequently received KCl 10meq IV q1h x 6 bags (09/30/2024, 12:43pm, 12:44pm, 1:34pm). PERSISTENT with post-supplement K 3.4 mmol/L (10/01/2024, 8:43am). Patient subsequently received KCl 10meq IVv q1h x 4 bags (10/01/2024, 6:47pm). Acute hypokalemia RESOLVED with post-supplement K 3.8 mmol/L (10/02/2024, 4:53am), repeat K 3.5 mmol/L (10/03/2024, 4:27am), repeat K 3.8 mmol/L (10/04/2024, 4:32am), repeat K 4.6 mmol/L (10/05/2024, 8:40am), and current K 3.9 mmol/L (10/09/2024, 4:16am). I will check repeat K level in the 10/10/2024 am. Of note, etiology of acute hypokalemia was most probably due to chronic ETOH-mediated berta-uresis. 4. Acute hypomagnesemia with admission Mg 1.6 mg/dL (09/29/2024, 3:38pm). RESOLVED s/p supplement with magnesium sulfate 1g IV x 2 doses (09/29/2024, 6:13pm, 9:42pm) with post-supplement Mg 2.0 mg/dL (09/30/2024, 7:03am), repeat Mg 1.9 mg/dL (10/01/2024, 4:41am), repeat Mg 1.9 mg/dL (10/02/2024, 4:53am), repeat Mg 2.2 mg/dL (10/03/2024, 4:27am), repeat Mg 2.0 mg/dL (10/04/2024, 4:32am), repeat Mg 2.0 mg/dL (10/05/2024, 8:40am), and current Mg 2.1 mg/dL 9010/08/2024, 4:06am). I will check repeat Mg level in the 10/10/2024 am. Of note, etiology of acute hypomagnesemia was most probably due to chronic ETOH- mediated magne-uresis. 5. Acute hypophosphatemia with admission PO4 2.0 mg/dL (, 9:14pm). RESOLVED. No KPO4 supplement given repeat, normal PO4 4.0 mg/dL (09/30/2024, 3:24pm), repeat PO4 3.5 mg/dL (10/01/2024, 4:41am), repeat PO4 4.0 mg/dL (10/02/2024, 4:53am), repeat PO4 2.9 mg/dL (10/03/2024, 4:27am). cf., repeat PO4 1.9 mg/dL (10/04/2024, 4:32am). Patient subsequently received KPO4 12 mmol IV x 1 dose (10/04/2024, 6:30am) with post-supplement PO4 2.0 mg/dL (10/04/2024, 9:50am), repeat PO4 2.5 mg/dL (10/05/2024, 8:40am), and current PO4 3.6 mg/dL (10/07/2024, 5:11am). Check repeat PO4 level in the 10/10/2024 am, and supplement to attain/maintain PO4 level > 2.5 mg/dL. 6. Acute hypoxic respiratory failure with O2 saturation 71% on room air (09/30/2024, 2:10am), followed by O2 saturation 88-89% on 10 liters/minute O2 via oxymask (09/30/2024, 7:30am), followed by O2 saturation 94% on High Flow oxygen @ 40 L/min, FIO2 = 0.45 (10/01/2024, 6:01pm), followed by O2 saturation 96% on High Flow oxygen @ 40 L/min, FIO2 = 0.40 (10/02/2024, 7:32am). RESOLVED transiently with O2 saturation 99% on 4 L/min O2 via NC (10/02/2024, 12:51pm), O2 saturation 92% on 3 L/min O2 via NC (10/03/2024, 6:00am), O2 saturation 96% on room air (10/04/2024, 10:01am. Etiology of acute hypoxic respiratory failure remains unclear as patient remains afebrile with WBC remaining normal (cf., admission WBC 5.56, N56 L30 M12 E1 B1 (09/29/2024, 3:38pm) and repeat WBC 9.38, no differential (09/30/2024, 7:03am) and portable CXR (09/29/2024) negative for infiltrate/consolidation, effusion, cardiomegaly, pulmonary vascular congestion, or pneumothorax (by my review). Subsequently, I ordered procalcitonin (09/30/2024, 2:32pm), lactic acid (09/30/2024, 2:32pm), and portable CXR (09/30/2024, 2:33pm). Subsequently, procalcitonin was normal @ 0.10 ng/mL (09/30/2024, 3:24pm), lactic acid was elevated at 4.2 mmol/L (09/30/2024, 3:24pm), and portable CXR (09/30/2024, 2:33pm) revealed "Stable cardiac valve repair and pacemaker. Stable cardiomegaly with increased pulmonary vascular congestion. There is increased patchy opacity throughout the right lung and at the left lung base. No pleural effusion or pneumothorax." Hence, acute exacerbation of chronic systolic CHF with last recorded LVEF 30% (as noted on 06/08/2022, 1:13pm TTE, CARDS Dr. Olman Collins) may be contributing to patient's acute hypoxic respiratory failure. Subsequently, I ordered TTE for the 10/02/2024 am; In the interim, patient was not started on lasix, but instead, patient was started on metoprolol tatrate 25mg PO bid (10/05/2024, 9:40am), in lieu of his home-scheduled metoprolol succinate XL 50mg PO qam, given BP 149/103 (10/05/2024, 8:03pm). Of note, patient underwent direct laryngoscopy with subsequent video laryngo scopy (10/05/2024, 1:43pm, Critical Care Dr. Edgardo Millard)(performed to address patient's acute hypoxic respiratory failure; subsequent finding of "concretion leading to upper airway obstruction.") Of note, patient was intubated emergently during Code Purple (10/06/2024, 2:08pm, [facility] ER Dr. Ponce Oleary) to address acute hypoxic respiratory failure with O2 sat 60% on room air (10/06/2024, 1:51pm), of unclear etiology, with subsequent bronchoscopy (10/06/2024, 2:16pm, [facility] Critical Care Dr. Luis A Chao)(to evaluate patient for possible mucous plugging) revealing "clear airways." Of note, patient subsequently underwent workup to evaluate the etiology of patient's acute hypoxic respiratory failure on 10/06/2024, 1:51pm with O2 sat 6 0% on room air (10/06/2024, 1:51pm), which included the following tests: A. CTA chest (10/06/2024, 3:07pm): 1. Negative for pulmonary embolus. 2. Negative for aortic dissection. 3. Bilateral pleural effusions, left side greater than right with atelectatic changes in the lower lobes bilaterally as well as patchy groundglass densities compatible with the recent CHF/ARDS. B. TTE (10/06/2024, 3:26pm): 1. LVEF 25-30%. Severe global LV dysfunction. 2. Mildly dilated LV. Mild concentric LVH. 3. RV mild to moderately dilated with moderate RV dysfunction. 4. Post mitral valve repair with annuloplasty ring. Normal expected transvalvular gradients and no significant MR. 5. Moderate pulmonary HTN with estimated PASP 50-55 mm Hg. Estimated RAP 15 mm Hg. 6. Compared to prior study on 04/23/2022, no significant changes. (as per CARDS Dr. Chepe Guidry). C. Flexible bronchoscopy (10/06/2024, 6:43pm, Critical Care Mr. Calvillo Michaelmorgan, ERP DEVELOPER): "Bronchoscope was advanced down ETT, joyce visualized. The bronchoscope was then withdrawn with the ETT to the just below the vocal chords until transillumination visualized by Dr. Millard and ballotment of tissue noted by myself on the scope. Seeker needle was then placed through anterior neck by Dr. Millard, visualized in good position with brnochoscope and free of the backwall. The guidewire was advanced and visualized going downward towards the joyce. Initial Dilation was performed and again visualized free of the back wall. Serial dilations were completed by Dr. Millard and 6.0 cuffed Trahcestomy with inner cannula was then placed into the trachea, direct visualization with bronchoscope of cuff up and tracheostomy freely in the trachea. The scope and ETT was removed suctioning out small amount of thin bloody secretions. Following securing of the tracheostomy, the brochoscope was then passed down the newly creathed perc trach inner cannula noting no obstruction correct placement noted above the joyce. The right and left mainstem bronchous were inspected that looked clean and pink. Small amount of thick clear secretions were suctioned out. THe bronchoscope was then removed and was noted to be intact. No samples were sent to lab." D. Lung U/S (10/06/2024, 6:46pm, Critical Care Dr. Edgardo Millard): "Simple appearing left pleural effusion with type a profile with absence of B-lines." E. Lumbar puncture (10/06/2024, 7:36pm, Critical Care Dr. Edgardo Millard): clear, colorless, WBC 0, RBC 20, cell count 3, glucose 76, protein 43.1, Lyme IgM/IgG pending. F. Portable CXR (10/06/2024, 7:50pm): 1. Small left pleural effusion with infiltrate and/or atelectasis at the left lung base. G. Portable CXR (10/06/2024, 7:52am): 1. Stable lines and tubes. 2. Cardiomegaly and AICD with evidence of congestive failure. 3. Left large right pleural effusions with bibasilar consolidation. This is similar to yesterday. In sum, given the development of bibasilar consolidation with bilateral effusions (as noted on 10/06/2024, 7:52am portable CXR), combined with procalcitonin levels that remain consistently elevated above 0.20 ng/mL since 10/02/2024 (see below), I surmise that this patient has developed an acute bibasilar Hospital-Acquired Pneumonia (HAP) with effusions AFTER being admitted to [facility] on 09/30/2024. Moreover, acute bibasilar HAP is most likely the etiology for patient's acute hypoxic respiratory failure that preceded announcement of Code Purple (10/06/2024, 2:08pm, [facility] ER Dr. Ponce Oleary). cf., procalcitonin #1 0.10 ng/mL (09/30/2024, 3:24pm) cf., procalcitonin #2 0.15 ng/mL (10/01/2024, 4:41am). cf., procalcitonin #3 0.35 ng/mL (10/02/2024, 4:53am). cf., procalcitonin #4 1.00 ng/mL (10/03/2024, 9:38am). cf., procalcitonin #5 0.40 ng/mL (10/05/2024, 8:40am). cf., procalcitonin #6 0.24 ng/mL (10/06/2024, 8:18am). cf., procalcitonin #7 0.31 ng/mL (10/07/2024, 5:11am). To treat acute bibasilar Hospital-Associated Pneumonia (HAP) with effusions, patient was started on zosyn 4.5g IV q8 (day #1 on 10/07/2024, 12:58pm). Given that patient tested negative for MRSA twice (see below), the likelihood that patient has developed an acute staphylococcal bibasilar HAP remains very low, and hence, empiric vancomycin was NOT started on 10/07/2024. cf., MRSA nares PCR screen negative (09/30/2024, 1:00pm). cf., MRSA nares PCR screen negative (10/07/2024, 8:15am). Subsequently, patient's procalcitonin levels continued to increase: cf., procalcitonin #8 5.78 ng/mL (10/08/2024, 4:06am). cf., procalcitonin #9 10.10 ng/mL (10/08/2024, 9:18am). cf., procalcitonin levels > 0.20 ng/mL in the setting of pleural effusion are consistent with acute bacterial infection. Hence, I surmised that zosyn 4.5g IV q8 is not sufficient to treat patient's acute bibasilar Hospital-Associated Pneumonia (HAP) with effusions. Hence, I discontinued zosyn 4.5g IV q8 and I started patient on meropenem 500mg IV q6 (day #1 on 10/08/2024, 12:19pm, 6:00pm) to provide broader coverage against gram negative aerobes and gram negative anaerobes. Subsequently, patient's procalcitonin levels have started to decrease: cf., procalcitonin #10 7.91 ng/mL (10/09/2024, 4:16am). Hence, I have opted to continue meropenem 500mg IV q6 (day #1 on 10/08/2024, 12:19pm, 6:00pm). Of final note, I will check vitals, chest exam, WBC w/diff, lactic acid, and procalcitonin levels in the 10/10/2024 am. 7. Acute hypercapnic respiratory failure with CO2 45 mmol/L (09/30/2024, 7:03am) and CO2 35 mmol/L (10/01/2024, 4:41am), RESOLVED with CO2 29 mmol/L (10/02/2024, 4:53am). Etiology of of acute hypercapnic respiratory failure remains unclear in this patient who is still hyperventilating at: 29 breaths/minute (09/30/2024, 7:30am) 34 breaths/minute (09/30/2024, 1:03pm) 24 breaths/minute (10/01/2024, 8:00 am and 6:01pm) 22 breaths/minute (10/04/2024, 10:01am). 24 breaths/minute (10/05/2024, 8:03pm). Of note, patient underwent portable CXR (09/30/2024, 2:33pm) to check for evidence of COPD, bronchiectasis/fibrosis, and/or atelectasis, which can lead to hypercapnia, and none of which were observed on portable CXR (09/30/2024, 2:33pm). 8. Acute kidney injury with admission creatinine 2.20 mg/dL (09/29/2024, 3:38pm), RESOLVED. cf., admission creatinine 2.20 mg/dL (09/29/2024, 3:38pm). cf., repeat creatinine 1.90 mg/dL (09/30/2024, 7:03am). cf., repeat creatinine 1.88 mg/dL (10/01/2024, 4:41am). cf., repeat creatinine 1.91 mg/dL (10/02/2024, 4:53am). cf., repeat creatinine 1.58 mg/dL (10/03/2024, 4:27am). cf., repeat creatinine 1.24 mg/dL (10/04/2024, 4:32am). cf., current creatinine 1.10 mg/dL (10/05/2024, 8:40am). cf., baseline creatinine range, 0.95 mg/dL (04/25/2022, 6:21am) to 1.37 mg/dL (07/04/2024, 7:12am). Etiology of acute kidney injury remains unclear, but may be due to patient's cedric e-scheduled sacubitril 49mg - valsartan 51mg PO bid, lasix 40mg PO qam, spironolactone 25mg PO daily, and lisinopril 20mg PO daily given the potential for any/all of these agents to cause further renal embarrassment. Hence, I have opted to hold OFF patient's home-scheduled sacubitril 49mg - valsartan 51mg PO bid, lasix 40mg PO qam, spironolactone 25mg PO daily, and lisinopril 20mg PO daily. Observe. 9. Acute lactic acidosis with admission lactic acid #1 4.2 mmol/L (09/30/2024, 3:24pm), RESOLVED. cf., lactic acid # 2 4.3 mmol/L (09/30/2024, 6:18pm). cf., lactic acid # 3 3.6 mmol/L (09/30/2024, 8:00pm). cf., lactic acid # 4 3.3 mmol/L (10/01/2024, 4:41am). cf., lactic acid # 5 5.7 mmol/L (10/01/2024, 9:04am). cf., lactic acid # 6 2.3 mmol/L (10/01/2024, 7:07pm). cf., lactic acid # 7 1.4 mmol/L (10/02/2024, 4:53am). cf., lactic acid # 8 2.9 mmol/L (10/03/2024, 9:38am). cf., lactic acid # 9 1.5 mmol/L (10/04/2024, 4:32am). cf., lactic acid #10 5.8 mmol/L (10/05/2024, 8:40am). cf., lactic acid #11 1.5 mmol/L (10/05/2024, 12:41pm). Etiology of acute lactic acidosis remains unclear, but is probably due to a combination of (a) acute dehydration from chronic ETOH-mediated diuresis and (b) okisp-[id number] transaminitis, which in turn, is due to chronic alcoholic hepatitis. In addition, I surmise that the propylene glycol solvent used in the phenobarbital IV formulation @ [facility] contributed to increased formation of lactic acid. Now that patient is off phenobarbital 32.5mg IV bid (10/03/2024, 9:01pm; 10/04/2024, 8:53am; 10/05/2024, 8:33am), and on phenobarbital 30mg PO bid x 5 doses (starting on 10/05/2024, 8:10pm), I do not expect recurrence of acute lactic acidosis. cf., AST 58 U/L, ALT 25 U/L, ALK PHOS 168 U/L (09/29/2024, 3:38pm). cf., AST 45 U/L, ALT 22 U/L, ALK PHOS 164 U/L (09/30/2024, 7:03am). cf., AST 41 U/L, ALT 18 U/L, ALK PHOS 153 U/L (10/01/2024, 4:41am). cf., baseline AST range, 18 - 33 U/L (10/22/2020 - 07/04/2024), ALT range, 12-38 U/L (10/22/2020 - 07/04/2024), ALK PHOS range, 110-124 U/L (03/09/2022 - 07/04/2024). To address (a), patient received 1 liter of 0.9% NS @ 999 mL/hr (09/29/2024, 6:16pm), followed by 1 liter of lactated Ringers @ 125 mL/hr (09/29/2024, 9:42pm) in [facility] ER. Patient is being held off further IV fluid rehydration therapy in order to avoid further cardio-pulmonary embarrassment. 10. Acute exacerbation of chronic systolic CHF with reduced LVEF 30%, normal RV systolic function, inability to assess LV diastolic function due to prior mitral valve repair (as reported on 06/08/2022 TTE, CARDS Dr. Olman Collins). s/p AICD. Restart home-scheduled metoprolol succinate 50mg PO qam with a first dose now on 10/05/2024, 9:06pm. Hold OFF home-scheduled sacubitril 49mg - valsartan 51mg PO bid, lasix 40mg PO qam, spironolactone 25mg PO daily, and lisinopril 20mg PO daily, given the potential for any/all of these agents to cause further renal embarrassment. cf., admission creatinine 2.20 mg/dL (09/29/2024, 3:38pm). cf., repeat creatinine 1.90 mg/dL (09/30/2024, 7:03am). cf., repeat creatinine 1.88 mg/dL (10/01/2024, 4:41am). cf., repeat creatinine 1.91 mg/dL (10/02/2024, 4:53am). cf., repeat creatinine 1.58 mg/dL (10/03/2024, 4:27am). cf., repeat creatinine 1.24 mg/dL (10/04/2024, 4:32am). cf., current creatinine 1.10 mg/dL (10/05/2024, 8:40am). cf., baseline creatinine range, 0.95 mg/dL (04/25/2022, 6:21am) to 1.37 mg/dL (07/04/2024, 7:12am). 11. Acute type II NSTEMI with troponin #1 21.8 pg/mL (, 3:38pm) and troponin #2 22.9 pg/mL (, 5:12pm). Etiology of nominally elevated troponin levels remains unclear, but is most probably due to demand ischemia, which in turn, is due to (a) acute hypoxic respiratory failure, which in turn, is due to (b) acute exacerbation of chronic systolic CHF with reduced LVEF 30%, normal RV systolic function, inability to assess LV diastolic function due to prior mitral valve repair (as reported on 06/08/2022 TTE, CARDS Dr. Olman Collins). Hence, I have opted to observe this laboratory anomaly at this time. 12. Disposition. Code status, FULL CODE @ home. ACLS as required. Condition of patient remains tenuous, if not terminal, given the severity of patient's medical problems noted above. To this end, I called and spoke with the patient's daughter, Ms. Carla Tidwell ( ) on 10/10/2024, 9:49am, regarding the patient's medical issues and condition, and anticipated D/C to LTAC in the next 1-2 days, and she concurred with the assessment and plan as described above, asking only if (1) LTAC is covered by patient's Medicare plan, which I stated yes, patient's Medicare plan covers LTAC, and (2) if LTAC close to patient's home or Carla's home can be identified, so that Carla and/or other family members can visit the patient easily. I responded that I am not aware of any LTAC close to patient's home or Carla's home, in order to accommodate Carla's wish for patient to remain close to patient's home or Carla's home, and unfortunately, if LTAC were identified, and which accepted patient into its LTAC facility, that patient would be discharged to such LTAC facility, independent of its proximity to patient's home or Carla's home, as the patient's medical issues described above no longer warrant ICU level of care, or even continuation of care @ [facility], as of 10/09/2024, and hence, patient awaits transfer from ICU bed #E104-1 to a lower level of care, namely PCU with telemetry, as of 10/09/2024. Admission and Anticipated Discharge Date Admission Date: September 29, 2024 Subjective Unavailable as patient remains lethargic, obtunded, and non-verbal, since being intubated and mechanically ventilated since Code Purple (10/06/2024, 2:08pm) to address acute hypoxic respiratory failure with O2 sat 60% on room air (10/06, 1:51pm), of unclear etiology, with subsequent bronchoscopy (10/06/2024, 2:16pm, [facility] Critical Care Dr. Lui sA Chao)(to evaluate patient for possible mucous plugging) revealing "clear airways." Subsequent bronchoscopy (10/06/2024, 6:43pm, Critical Care Mr. Calvillo MichaelmorganMARLENE) revealed "Small amount of thick clear secretions were suctioned out" implying that patient may have been suffering from recurrent mucous plugging as a proximal cause for his acute hypoxic respiratory failure on 10/06/2024, 2:08pm. Review of Systems Constitutional: Unavailable as patient remains lethargic, obtunded, and non-verbal, since being intubated and mechanically ventilated since Code Purple (10/06/2024, 2:08pm) to address acute hypoxic respiratory failure with O2 sat 60% on room air (10/06/2024, 1:51pm), of unclear etiology, with subsequent bronchoscopy (10/06/2024, 2:16pm, [facility] Critical Care Dr. Luis A Chao)(to evaluate patient for possible mucous plugging) revealing "clear airways." Subsequent bronchoscopy (10/06/2024, 6:43pm, Critical Care Mr. Rajinder ChoudhuryMARLENE) revealed "Small amount of thick clear secretions were suctioned out" implying that patient may have been suffering from recurrent mucous plugging as a proximal cause for his acute hypoxic respiratory failure on 10/06/2024, 2:08pm. Physical Exam Constitutional: General: Comfortable, intubated emergently during Code (10/06/2024, 2:08pm, [facility] ER Dr. Ponce Oleary) to address acute hypoxic respiratory failure with O2 sat 60% on room air (10/06/2024, 1:51pm), of unclear etiology, with subsequent bronchoscopy (10/06/2024, 2:16pm, [facility] Critical Care Dr. Luis A Chao)(to evaluate patient for possible mucous plugging) revealing "clear airways." s/p pressure support @ 8 cm H2O, PEEP 5 cm H2O, FIO2 = 0.4 (10/08/2024, 9:35am). Now on trach collar @ 8 liters/minute, FIO2 = 0.35, O2 saturation 100% (10/09/2024, 8:27am). HEENT: Normocephalic, atraumatic. Pupils equally round and reactive to light. No nystagmus, gaze paresis, anisocoria, miosis, mydriasis, hyphema, scleral injection, conjunctivitis, or pterygium. No otorrhea. No pharyngeal erythema, edema, or discharge. NG tube with [employer] HN 1.2 jovanni on hold. Neck: Supple, no stridor, bruit, goiter, or hepato-jugular reflux. Jugular venous pressure is estimated to be 3 cm above the sternal angle of [place], which in turn, is 5 cm above the level of the right atrium; with jugular venous pressure estimated to be 8 cm, then, there is no jugular venous distention on 10/08/2024. Lymphatics: No cervical (anterior/posterior), supraclavicular, infraclavicular, axillary, epitrochlear, or inguinal adenopathy. Chest: Symmetric rise and fall with respirations. Non-tender to palpation. s/p direct laryngoscopy with subsequent video laryngoscopy (10/05/2024, 1:43pm, Critical Care Dr. Edgardo Millard)(performed to address patient's acute hypoxic respiratory failure; subsequent finding of "concretion leading to upper airway obstruction."). s/p bronchoscopy (10/06/2024, 2:16pm, [facility] Critical Care Dr. Luis A Chao)(to evaluate patient for possible mucous plugging) revealing "clear airways." Subsequent bronchoscopy (10/06/2024, 6:43pm, Critical Care MARLENE Milligan) revealed "Small amount of thick clear secretions were suctioned out" implying that patient may have been suffering from recurrent mucous plugging as a proximal cause for his acute hypoxic respiratory failure on 10/06/2024, 2:08pm. Lungs: Clear to auscultation and percussion. No audible expiratory wheeze, egophony, pectoriloquy, increase in tactile fremitus, or flatness/dullness to percussion at the bases. Heart: Regular rate. Regular rhythm. S1 and S2 noted. No S3 or S4 summation gallop. No tripartite friction rub. Grade II/ early systolic murmur @ LLSB without radiation to the carotids, axilla, or back, and which remains invariant in regards to the respiratory cycle. Abdomen: Soft, non-tender, non-distended. No rebound, guarding, Logan 's sign, or organomegaly. Bowel sounds auscultated in all 4 quadrants. Extremities: No clubbing, cyanosis, or edema in upper extremities or lower extremities bilaterally. 2+ pedal pulses bilaterally. Skin: No decubitus ulcer or enanthem. Genito-urinary: No urethral discharge. + poole catheter with urine output 0.58 mL/kg/hr (10/08/2024, 8:31am to 10/09/2024, 8:31am) Neurology: No myoclonus, tremors, or tics. Results & Data Results & Data Vital Signs (Past 12 Hours) Vital Signs Temp Pulse BP Pulse Ox O2 Del Method 10/09/24 16:01 159/92 H 10/09/24 15:57 38.6 C H 116 H 96 Trach Collar 10/09/24 15:14 38.6 C H 124 H 97 Trach Collar 10/09/24 15:00 166/107 H 10/09/24 14:59 38.6 C H 122 H 98 Trach Collar 10/09/24 14:36 123 H 10/09/24 14:00 38.4 C H 125 H 163/110 H 98 Trach Collar 10/09/24 13:00 38.3 C H 117 H 97 Trach Collar 10/09/24 13:00 158/87 H 10/09/24 12:09 38.3 C H 115 H 96 Trach Collar 10/09/24 12:00 136/76 10/09/24 11:51 38.5 C H 116 H 97 Trach Collar 10/09/24 11:00 38.4 C H 116 H 94 Trach Collar 10/09/24 11:00 169/96 H 10/09/24 10:12 37.9 C H 109 H 96 Trach Collar 10/09/24 10:03 181/103 H 10/09/24 09:54 37.7 C H 107 H 94 Trach Collar 10/09/24 09:27 169/97 H 10/09/24 09:00 37.4 C 102 H 93 Trach Collar 10/09/24 08:30 152/98 H 10/09/24 08:27 37.1 C 91 H 100 Trach Collar 10/09/24 08:06 36.9 C 89 98 Trach Collar 10/09/24 08:00 79 10/09/24 07:30 146/103 H 10/09/24 07:30 36.6 C 80 100 Trach Collar 10/09/24 07:30 Trach Collar 10/09/24 07:00 158/99 H 10/09/24 07:00 36.4 C L 79 100 Trach Collar 10/09/24 06:30 160/92 H Laboratory Results Abnormal lab results 10/09/24 10/09/24 10/09/24 Range/Units 00:49 04:16 06:04 RBC 2.60 L (4.70-6.10) M/uL Hgb 9.1 L (14.0-18.0) g/dl Hct 27.9 L (42.0-52.0) % MCV 107.3 H (80.0-100.0) fL MCH 35.0 H (25.0-34.0) pg RDW Std Deviation 59.2 H (36.4-46.3) fL RDW Coeff of Donna 14.9 H (11.5-14.5) % Neut # (Auto) 8.38 H (1.40-6.50) K/uL Lymph # (Auto) 0.84 L (1.20-3.40) K/uL [place] # (Auto) 0.78 H (0.11-0.59) K/uL Sodium 135 L (136-145) mmol/L Chloride 109 H (98-107) mmol/L Carbon Dioxide 19 L (21-32) mmol/L Glucose 105 H (70-99(Fasting)) mg/dl POC Glucose 106 H 109 H (70-99) mg/dl Calcium 8.1 L (8.6-10.3) mg/dl Total Protein 5.6 L (6.0-8.3) gm/dl Albumin 2.5 L (3.4-5.0) gm/dl Albumin/Globulin Ratio 0.8 L (0.9-2) Procalcitonin 7.91 H (0-0.5) ng/ml PG Care Time/CCT Total # of Minutes Spent Total Time Spent with Patient: Total time spent is greater than 50% in coordination of care (as documented) at patient's floor/unit and/or counseling patient: Coding Level of Care Code 73310 SUB INP/OBS CARE 350MIN Diagnoses Acute hypoxic respiratory failure J96.01 HAP (hospital-acquired pneumonia) J18.9; Y95
[2024-10-09] MEDS ORDERED: GABAPENTIN 600 MG TAB PO SCH (22:00)
[2024-10-10 04:55] LABS: Alanine Aminotransferase 13.0 U/L (7-52); Alkaline Phosphatase 94.0 U/L (34-104); Bilirubin,Total 0.4 mg/dl (0.2-1.0); Total Protein 6.0 gm/dl (6.0-8.3)
[2024-10-10 05:09] LABS: ANTI-Xa, UFH(UnfractionatedHep 0.25 IU/ml (0.3-0.7)
--- NOTE | 2024-10-10 08:18 | Pulmonology Progress Note ---
Date of Service October 10, 2024 Assessment & Plan (1) HAP (hospital-acquired pneumonia): Plan: Blood cultures negative to date. Sputum cultures positive for Staph aureus. Patient currently on Ancef. Would recommend a 2-week total course of antibiotics. Will obtain chest x-ray today given concerns of possible aspiration overnight and this morning. Oxygen requirements have remained the same. (2) Acute hypoxic respiratory failure: Plan: Continue to wean FiO2 as able. (3) Tracheostomy, acute management: Plan: Patient was trached 10/06/2024 by prior ICU provider due to concerns of upper airway occlusion. He is doing well on trach collar trials. Will try Passy-Олег valve today if patient able to comply. Can likely downsize his tracheostomy next week versus decannulation. (4) Alcohol withdrawal delirium: Plan: Patient continues to be in significant alcohol withdrawal. Will add a clonidine patch in addition to Librium 50 mg every 6 hours. Will need to check with pharmacy regarding crushing Librium to place it down the core safe. Admission and Anticipated Discharge Date Admission Date: September 29, 2024 Subjective Patient remains severely agitated this morning and is in soft mitten restraints. He is often lashing out at staff and trying to prevent staff from providing him care. Reportedly he had some aspiration of tube feeds overnight and this morning had a loose tube which he may have swallowed. He is hypertensive and tachycardic this morning. He is mildly febrile. Review of Systems Review of Systems: Unobtainable due to cognitive status Physical Exam Physical Exam: Constitutional: Severely agitated and frequently flailing. Soft mitt restraints in place. Eyes: Pupils are equal round and reactive to light. Conjunctivae are normal. Anicteric sclera. Ears nose, mouth and throat:Normal posterior oropharynx. Uvula is midline. Size [address]. Sutures in place. Neck: Trachea is midline. Visual inspection is normal. Respiratory: Mildly diminished at the left lung base with crackles. Cardiovascular: Tachycardic. No murmurs. No edema. Gastrointestinal: Normal bowel sounds, soft, nontender and nondistended. No hepatosplenomegaly noted. Musculoskeletal: No cyanosis. Patient is able to move all extremities. Strength is 5 out of 5 in the upper and lower extremities. Skin: No rashes, warm dry and intact. Neurologic: No obvious focal neurological deficits seen. Psychiatric: Anxious and agitated appearing. Results & Data Results & Data Vital Signs (Past 12 Hours) Vital Signs Temp Pulse Resp BP Pulse Ox 10/10/24 05:00 38.2 C H 115 H 31 H 95 10/10/24 04:27 38.5 C H 128 H 22 81 L 10/10/24 03:00 38.5 C H 117 H 25 H 98 10/10/24 03:00 152/90 H 10/10/24 03:00 152/90 H 10/10/24 02:00 158/85 H 10/10/24 02:00 38.5 C H 113 H 24 97 10/10/24 01:03 38.3 C H 109 H 22 98 10/10/24 01:00 165/94 H 10/10/24 01:00 165/94 H 10/10/24 00:15 38.4 C H 109 H 29 H 97 10/10/24 00:06 114 H 33 H 99 10/10/24 00:00 154/106 H 10/10/24 00:00 154/106 H 10/09/24 23:57 112 H 33 H 99 10/09/24 23:06 106 H 25 H 99 10/09/24 22:09 102 H 0 L 98 10/09/24 21:03 142/96 H 10/09/24 21:03 142/96 H 10/09/24 21:00 104 H 0 L 96 PG Care Time/CCT Total # of Minutes Spent Total Time Spent with Patient: Total time spent is greater than 50% in coordination of care (as documented) at patient's floor/unit and/or counseling patient: Coding Level of Care Code 99296 SUB INP/OBS CARE 3/50MIN Diagnoses HAP (hospital-acquired pneumonia) J18.9; Y95 Acute hypoxic respiratory failure J96.01 Tracheostomy, acute management Z43.0 Alcohol withdrawal delirium F10.931
[2024-10-10] MEDS: ACETAMINOPHEN 1,000 MG/100 ML VIAL IV PRN (08:43)
--- NOTE | 2024-10-10 08:45 | XRay Report ---
SINGLE VIEW CHEST CLINICAL HISTORY: Respiratory failure. Pneumonia FINDINGS: An AP, portable, supine chest radiograph is compared to study dated 10/09/2024 and correlate d with chest CT dated 10/06/2024. A tracheostomy and enteric tube are unchanged in position. The patie nt is status post midline sternotomy and cardiac valve surgeries. A single lead cardiac AICD is uncha nged in position and partially obscures the left upper chest. The heart is enlarged noting atheroscle rotic calcification of the thoracic aorta. There is pulmonary vascular congestion with interstitial e xochitl. There are small pleural effusions with left basilar consolidation. No pneumothorax is seen. The skeletal structures are osteopenic. The bony thorax is grossly intact. IMPRESSION: 1. Stable lines and tubes. 2. Cardiomegaly and AICD with evidence of congestive failure and pulmonary edema. This is similar yes terday. 3. Left larger than right pleural effusions with bibasilar consolidation. ACT 112: Negative or not required by law. Electronically signed by: Shen Aguilar M.D. 10/10/2024 8:44 AM
[2024-10-10 08:49] LABS: Hematocrit (blood only) 30.6 % (42.0-52.0); Hemoglobin 10.1 g/dl (14.0-18.0); Immature Granulocytes # (auto) 0.30 K/uL (0.01-0.20); Immature Granulocytes % (auto) 2.4 %; Mean Corpuscular Hemoglobin 34.6 pg (25.0-34.0); Mean Corpuscular Volume 104.8 fL (80.0-100.0); Platelet Count 340 K/uL (130-400); RDW Standard Deviation 58.0 fL (36.4-46.3); Red Blood Count 2.92 M/uL (4.70-6.10); White Blood Count 12.67 K/ul (4.8-10.8)
[2024-10-10] MEDS: REMOVE CLONIDINE PATCH SCH (08:56)
--- NOTE | 2024-10-10 09:04 | XRay Report ---
KUB CLINICAL HISTORY: ng placement COMPARISON STUDY: KUB October 06, 2024. FINDINGS: The tip of the feeding tube projects over the second portion of the duodenum. Visualized [place] wel gas pattern is normal. Left subclavian pacer, prosthetic cardiac valve and median sternotomy wire s are incidentally noted. IMPRESSION: Tip of feeding tube projects over the second portion of the duodenum. ACT 112: Negative or not required by law. Electronically signed by: Steven Grewal M.D. 10/10/2024 9:03 AM
[2024-10-10 09:05] LABS: Anion Gap 8.0 (3-11); Blood Urea Nitrogen 12.0 mg/dl (6-23); Calcium 8.5 mg/dl (8.6-10.3); Carbon Dioxide 23.0 mmol/L (21-32); Chloride 106.0 mmol/L (98-107); Creatinine Clr Calc Pharmacy 74.6 ml/min; Glucose 85.0 mg/dl (70-99(Fasting)); Magnesium 1.8 mg/dl (1.7-2.4); Potassium 3.9 mmol/L (3.5-5.1); Sodium 137.0 mmol/L (136-145)
[2024-10-10] MEDS: MEROPENEM 500 MG in SYRINGE 0 ML IV SCH (11:35)
[2024-10-10] MEDS: APIXABAN 5 MG TABLET PO SCH (11:37)
[2024-10-10] MEDS: CHECK CLONIDINE PATCH PLACEMENT SCH (16:56)
[2024-10-10] MEDS: FUROSEMIDE 40 MG/4 ML VIAL IV SCH (20:08)
--- NOTE | 2024-10-10 20:52 | Hospitalist Progress Note ---
Date of Service October 10, 2024 Assessment & Plan (1) Acute hypoxic respiratory failure: (2) HAP (hospital-acquired pneumonia): Plan 69 years old male with PMH of FULL CODE @ home, HTN, non-ischemic cardiomyopathy with chronic systolic CHF with LVEF 30%, normal RV systolic function, and indeterminate LV diastolic function, s/p AICD, and ongoing EtOH abuse who presented to [facility] ER on 09/29/2024 with comsplaint of abdominal distention, generally overall feeling unwell. On exam he did not appear anxious, no tremors. No significant ascites appreciated during my physical exam. No RUQ tenderness. Only trace bilateral LE edema. Patient was subsequently admitted to the inpatient hospitalist service @ [facility] on 09/29/2024 with the following diagnoses: 1. Acute ETOH intoxication with ETOH 143.3 mg/dL (09/29/2024, 5:12pm). 2. Acute ETOH withdrawal with last swig of whisky (09/29/2024, 6:00am). 3. Acute hypokalemia with admission K 2.4 mmol/L (09/29/2024, 3:38pm). 4. Acute hypomagnesemia with admission Mg 1.6 mg/dL (09/29/2024, 3:38pm). 5. Acute hypophosphatemia with admission PO4 2.0 mg/dL (, 9:14pm). 6. Acute hypoxic respiratory failure with O2 saturation 71% on room air (09/30/2024, 2:10am), now with O2 saturation 88-89% on 10 liters/minute O2 via oxymask (09/30/2024, 7:30am). 7. Acute hypercapnic respiratory failure with CO2 45 mmol/L (09/30/2024, 7:03am). 8. Acute kidney injury with admission creatinine 2.20 mg/dL (09/29/2024, 3:38pm). 9. Acute lactic acidosis with admission lactic acid #1 4.2 mmol/L (09/30/2024, 3:24pm). 10.Acute exacerbation of chronic systolic CHF with reduced LVEF 30%, normal RV systolic function, inability to assess LV diastolic function due to prior mitral valve repair (as reported on 06/08/2022 TTE, CARDS Dr. Olman Collins). 11.Acute type II NSTEMI with troponin #1 21.8 pg/mL (, 3:38pm) and troponin #2 22.9 pg/mL (, 5:12pm). The following medical issues are being addressed on 10/10/2024: 1. Acute ETOH intoxication with ETOH 143.3 mg/dL (09/29/2024, 5:12pm). Continue ETOH abstinence while in [facility]. 2. Acute ETOH withdrawal with last swig of whisky (09/29/2024, 6:00am). Continue telemetry, CIWA scale scoring with ativan prn, off precedex infusion (since 10/05/2024, 12:31pm infusion), off phenobarbital 32.5mg IV bid (10/03/2024, 9:01pm; 10/04/2024, 8:53am; 10/05/2024, 8:33am), on phenobarbital 30mg PO bid x 5 doses (starting on 10/05/2024, 8:10pm), MVI, thiamine, and folate supplementation. 3. Acute hypokalemia with admission K 2.4 mmol/L (09/29/2024, 3:38pm). PERSISTENT s/p supplementation with KCl 40meq PO x 1 dose (09/29/2024, 6:15pm) with post-supplement K 3.2 mmol/L (09/30/2024, 7:03am) and current K 3.0 mmol/L (09/30/2024, 11:09am). Patient subsequently received KCl 10meq IV q1h x 6 bags (09/30/2024, 12:43pm, 12:44pm, 1:34pm). PERSISTENT with post-supplement K 3.4 mmol/L (10/01/2024, 8:43am). Patient subsequently received KCl 10meq IVv q1h x 4 bags (10/01/2024, 6:47pm). Acute hypokalemia RESOLVED with post-supplement K 3.8 mmol/L (10/02/2024, 4:53am), repeat K 3.5 mmol/L (10/03/2024, 4:27am), repeat K 3.8 mmol/L (10/04/2024, 4:32am), repeat K 4.6 mmol/L (10/05/2024, 8:40am), and current K 3.9 mmol/L (10/09/2024, 4:16am). I will check repeat K level in the 10/11/2024 am. Of note, etiology of acute hypokalemia was most probably due to chronic ETOH-mediated berta-uresis. 4. Acute hypomagnesemia with admission Mg 1.6 mg/dL (09/29/2024, 3:38pm). RESOLVED s/p supplement with magnesium sulfate 1g IV x 2 doses (09/29/2024, 6:13pm, 9:42pm) with post-supplement Mg 2.0 mg/dL (09/30/2024, 7:03am), repeat Mg 1.9 mg/dL (10/01/2024, 4:41am), repeat Mg 1.9 mg/dL (10/02/2024, 4:53am), repeat Mg 2.2 mg/dL (10/03/2024, 4:27am), repeat Mg 2.0 mg/dL (10/04/2024, 4:32am), repeat Mg 2.0 mg/dL (10/05/2024, 8:40am), and current Mg 2.1 mg/dL 9010/08/2024, 4:06am). I will check repeat Mg level in the 10/11/2024 am. Of note, etiology of acute hypomagnesemia was most probably due to chronic ETOH- mediated magne-uresis. 5. Acute hypophosphatemia with admission PO4 2.0 mg/dL (, 9:14pm). RESOLVED. No KPO4 supplement given repeat, normal PO4 4.0 mg/dL (09/30/2024, 3:24pm), repeat PO4 3.5 mg/dL (10/01/2024, 4:41am), repeat PO4 4.0 mg/dL (10/02/2024, 4:53am), repeat PO4 2.9 mg/dL (10/03/2024, 4:27am). cf., repeat PO4 1.9 mg/dL (10/04/2024, 4:32am). Patient subsequently received KPO4 12 mmol IV x 1 dose (10/04/2024, 6:30am) with post-supplement PO4 2.0 mg/dL (10/04/2024, 9:50am), repeat PO4 2.5 mg/dL (10/05/2024, 8:40am), and current PO4 3.6 mg/dL (10/07/2024, 5:11am). Check repeat PO4 level in the 10/11/2024 am, and supplement to attain/maintain PO4 level > 2.5 mg/dL. 6. Acute hypoxic respiratory failure with O2 saturation 71% on room air (09/30/2024, 2:10am), followed by O2 saturation 88-89% on 10 liters/minute O2 via oxymask (09/30/2024, 7:30am), followed by O2 saturation 94% on High Flow oxygen @ 40 L/min, FIO2 = 0.45 (10/01/2024, 6:01pm), followed by O2 saturation 96% on High Flow oxygen @ 40 L/min, FIO2 = 0.40 (10/02/2024, 7:32am). RESOLVED transiently with O2 saturation 99% on 4 L/min O2 via NC (10/02/2024, 12:51pm), O2 saturation 92% on 3 L/min O2 via NC (10/03/2024, 6:00am), O2 saturation 96% on room air (10/04/2024, 10:01am. Etiology of acute hypoxic respiratory failure remains unclear as patient remains afebrile with WBC remaining normal (cf., admission WBC 5.56, N56 L30 M12 E1 B1 (09/29/2024, 3:38pm) and repeat WBC 9.38, no differential (09/30/2024, 7:03am) and portable CXR (09/29/2024) negative for infiltrate/consolidation, effusion, cardiomegaly, pulmonary vascular congestion, or pneumothorax (by my review). Subsequently, I ordered procalcitonin (09/30/2024, 2:32pm), lactic acid (09/30/2024, 2:32pm), and portable CXR (09/30/2024, 2:33pm). Subsequently, procalcitonin was normal @ 0.10 ng/mL (09/30/2024, 3:24pm), lactic acid was elevated at 4.2 mmol/L (09/30/2024, 3:24pm), and portable CXR (09/30/2024, 2:33pm) revealed "Stable cardiac valve repair and pacemaker. Stable cardiomegaly with increased pulmonary vascular congestion. There is increased patchy opacity throughout the right lung and at the left lung base. No pleural effusion or pneumothorax." Hence, acute exacerbation of chronic systolic CHF with last recorded LVEF 30% (as noted on 06/08/2022, 1:13pm TTE, CARDS Dr. Olman Collins) may be contributing to patient's acute hypoxic respiratory failure. Subsequently, I ordered TTE for the 10/02/2024 am; In the interim, patient was not started on lasix, but instead, patient was started on metoprolol tatrate 25mg PO bid (10/05/2024, 9:40am), in lieu of his home-scheduled metoprolol succinate XL 50mg PO qam, given BP 149/103 (10/05/2024, 8:03pm). Of note, patient underwent direct laryngoscopy with subsequent video laryng oscopy (10/05/2024, 1:43pm, Critical Care Dr. Edgardo Millard)(performed to address patient's acute hypoxic respiratory failure; subsequent finding of "concretion leading to upper airway obstruction.") Of note, patient was intubated emergently during Code Purple (10/06/2024, 2:08pm, [facility] ER Dr. Ponce Oleary) to address acute hypoxic respiratory failure with O2 sat 60% on room air (10/06/2024, 1:51pm), of unclear etiology, with subsequent bronchoscopy (10/06/2024, 2:16pm, [facility] Critical Care Dr. Luis A Chao)(to evaluate patient for possible mucous plugging) revealing "clear airways." Of note, patient subsequently underwent workup to evaluate the etiology of patient's acute hypoxic respiratory failure on 10/06/2024, 1:51pm with O2 sat 60% on room air (10/06/2024, 1:51pm), which included the following tests: A. CTA chest (10/06/2024, 3:07pm): 1. Negative for pulmonary embolus. 2. Negative for aortic dissection. 3. Bilateral pleural effusions, left side greater than right with atelectatic changes in the lower lobes bilaterally as well as patchy groundglass densities compatible with the recent CHF/ARDS. B. TTE (10/06/2024, 3:26pm): 1. LVEF 25-30%. Severe global LV dysfunction. 2. Mildly dilated LV. Mild concentric LVH. 3. RV mild to moderately dilated with moderate RV dysfunction. 4. Post mitral valve repair with annuloplasty ring. Normal expected transvalvular gradients and no significant MR. 5. Moderate pulmonary HTN with estimated PASP 50-55 mm Hg. Estimated RAP 15 mm Hg. 6. Compared to prior study on 04/23/2022, no significant changes. (as per CARDS Dr. Chepe Guidry). C. Flexible bronchoscopy (10/06/2024, 6:43pm, Critical Care Mr. Rajinder Chouduhry, TELECOM SPECIALIST): "Bronchoscope was advanced down ETT, joyce visualized. The bronchoscope was then withdrawn with the ETT to the just below the vocal chords until transillumination visualized by Dr. Millard and ballotment of tissue noted by myself on the scope. Seeker needle was then placed through anterior neck by Dr. Millard, visualized in good position with brnochoscope and free of the backwall. The guidewire was advanced and visualized going downward towards the joyce. Initial Dilation was performed and again visualized free of the back wall. Serial dilations were completed by Dr. Millard and 6.0 cuffed Trahcestomy with inner cannula was then placed into the trachea, direct visualization with bronchoscope of cuff up and tracheostomy freely in the trachea. The scope and ETT was removed suctioning out small amount of thin bloody secretions. Following securing of the tracheostomy, the brochoscope was then passed down the newly creathed perc trach inner cannula noting no obstruction correct placement noted above the joyce. The right and left mainstem bronchous were inspected that looked clean and pink. Small amount of thick clear secretions were suctioned out. The bronchoscope was then removed and was noted to be intact. No samples were sent to lab." D. Lung U/S (10/06/2024, 6:46pm, Critical Care Dr. Edgardo Millard): "Simple ap pearing left pleural effusion with type a profile with absence of B-lines." E. Lumbar puncture (10/06/2024, 7:36pm, Critical Care Dr. Edgardo Millard): clear, colorless, WBC 0, RBC 20, cell count 3, glucose 76, protein 43.1, Lyme IgM/IgG pending. F. Portable CXR (10/06/2024, 7:50pm): 1. Small left pleural effusion with infiltrate and/or atelectasis at the left lung base. G. Portable CXR (10/06/2024, 7:52am): 1. Stable lines and tubes. 2. Cardiomegaly and AICD with evidence of congestive failure. 3. Left large right pleural effusions with bibasilar consolidation. This is similar to yesterday. In sum, given the development of bibasilar consolidation with bilateral effusions (as noted on 10/06/2024, 7:52am portable CXR), combined with procalcitonin levels that remain consistently elevated above 0.20 ng/mL since 10/02/2024 (see below), I surmise that this patient has developed an acute bibasilar Hospital-Acquired Pneumonia (HAP) with effusions AFTER being admitted to [facility] on 09/30/2024. Moreover, acute bibasilar HAP is most likely the etiology for patient's acute hypoxic respiratory failure that preceded announcement of Code Purple (10/06/2024, 2:08pm, [facility] ER Dr. Ponce Oleary). cf., procalcitonin #1 0.10 ng/mL (09/30/2024, 3:24pm) cf., procalcitonin #2 0.15 ng/mL (10/01/2024, 4:41am). cf., procalcitonin #3 0.35 ng/mL (10/02/2024, 4:53am). cf., procalcitonin #4 1.00 ng/mL (10/03/2024, 9:38am). cf., procalcitonin #5 0.40 ng/mL (10/05/2024, 8:40am). cf., procalcitonin #6 0.24 ng/mL (10/06/2024, 8:18am). cf., procalcitonin #7 0.31 ng/mL (10/07/2024, 5:11am). To treat acute bibasilar Hospital-Associated Pneumonia (HAP) with effusions, patient was started on zosyn 4.5g IV q8 (day #1 on 10/07/2024, 12:58pm). Given that patient tested negative for MRSA twice (see below), the likelihood that patient has developed an acute staphylococcal bibasilar HAP remains very low, and hence, empiric vancomycin was NOT started on 10/07/2024. cf., MRSA nares PCR screen negative (09/30/2024, 1:00pm). cf., MRSA nares PCR screen negative (10/07/2024, 8:15am). Subsequently, patient's procalcitonin levels continued to increase: cf., procalcitonin #8 5.78 ng/mL (10/08/2024, 4:06am). cf., procalcitonin #9 10.10 ng/mL (10/08/2024, 9:18am). cf., procalcitonin levels > 0.20 ng/mL in the setting of pleural effusion are consistent with acute bacterial infection. Hence, I surmised that zosyn 4.5g IV q8 is not sufficient to treat patient's acute bibasilar Hospital-Associated Pneumonia (HAP) with effusions. Hence, I discontinued zosyn 4.5g IV q8 and I started patient on meropenem 500mg IV q6 (day #1 on 10/08/2024, 12:19pm, 6:00pm) to provide broader coverage against gram negative aerobes and gram negative anaerobes. Subsequently, patient's procalcitonin levels have continued to decrease: cf., procalcitonin #10 7.91 ng/mL (10/09/2024, 4:16am). cf., procalcitonin #11 4.97 ng/mL (10/10/2024, 4:02am). Hence, I have opted to continue meropenem 500mg IV q6 (day #1 on 10/08/2024, 12:19pm, 6:00pm). Of final note, I will check vitals, chest exam, WBC w/diff, lactic acid, and procalcitonin levels in the 10/11/2024 am. 7. Acute hypercapnic respiratory failure with CO2 45 mmol/L (09/30/2024, 7:03am) and CO2 35 mmol/L (10/01/2024, 4:41am), RESOLVED with CO2 29 mmol/L (10/02/2024, 4:53am). Etiology of of acute hypercapnic respiratory failure remains unclear in this patient who is still hyperventilating at: 29 breaths/minute (09/30/2024, 7:30am) 34 breaths/minute (09/30/2024, 1:03pm) 24 breaths/minute (10/01/2024, 8:00 am and 6:01pm) 22 breaths/minute (10/04/2024, 10:01am). 24 breaths/minute (10/05/2024, 8:03pm). Of note, patient underwent portable CXR (09/30/2024, 2:33pm) to check for evidence of COPD, bronchiectasis/fibrosis, and/or atelectasis, which can lead to hypercapnia, and none of which were observed on portable CXR (09/30/2024, 2:33pm). 8. Acute kidney injury with admission creatinine 2.20 mg/dL (09/29/2024, 3:38pm), RESOLVED. cf., admission creatinine 2.20 mg/dL (09/29/2024, 3:38pm). cf., repeat creatinine 1.90 mg/dL (09/30/2024, 7:03am). cf., repeat creatinine 1.88 mg/dL (10/01/2024, 4:41am). cf., repeat creatinine 1.91 mg/dL (10/02/2024, 4:53am). cf., repeat creatinine 1.58 mg/dL (10/03/2024, 4:27am). cf., repeat creatinine 1.24 mg/dL (10/04/2024, 4:32am). cf., current creatinine 1.10 mg/dL (10/05/2024, 8:40am). cf., baseline creatinine range, 0.95 mg/dL (04/25/2022, 6:21am) to 1.37 mg/dL (07/04/2024, 7:12am). Etiology of acute kidney injury remains unclear, but may be due to patient's home-scheduled sacubitril 49mg - valsartan 51mg PO bid, lasix 40mg PO qam, spironolactone 25mg PO daily, and lisinopril 20mg PO daily given the potential for any/all of these agents to cause further renal embarrassment. Hence, I have opted to hold OFF patient's home-scheduled sacubitril 49mg - valsartan 51mg PO bid, lasix 40mg PO qam, spironolactone 25mg PO daily, and lisinopril 20mg PO daily. Observe. 9. Acute lactic acidosis with admission lactic acid #1 4.2 mmol/L (09/30/2024, 3:24pm), RESOLVED. cf., lactic acid # 2 4.3 mmol/L (09/30/2024, 6:18pm). cf., lactic acid # 3 3.6 mmol/L (09/30/2024, 8:00pm). cf., lactic acid # 4 3.3 mmol/L (10/01/2024, 4:41am). cf., lactic acid # 5 5.7 mmol/L (10/01/2024, 9:04am). cf., lactic acid # 6 2.3 mmol/L (10/01/2024, 7:07pm). cf., lactic acid # 7 1.4 mmol/L (10/02/2024, 4:53am). cf., lactic acid # 8 2.9 mmol/L (10/03/2024, 9:38am). cf., lactic acid # 9 1.5 mmol/L (10/04/2024, 4:32am). cf., lactic acid #10 5.8 mmol/L (10/05/2024, 8:40am). cf., lactic acid #11 1.5 mmol/L (10/05/2024, 12:41pm). Etiology of acute lactic acidosis remains unclear, but is probably due to a combination of (a) acute dehydration from chronic ETOH-mediated diuresis and (b) ywdlp-ag-[id number] transaminitis, which in turn, is due to chronic alcoholic hepatitis. In addition, I surmise that the propylene glycol solvent used in the phenobarbital IV formulation @ [facility] contributed to increased formation of lactic acid. Now that patient is off phenobarbital 32.5mg IV bid (10/03/2024, 9:01pm; 10/04/2024, 8:53am; 10/05/2024, 8:33am), and on phenobarbital 30mg PO bid x 5 doses (starting on 10/05/2024, 8:10pm), I do not expect recurrence of acute lactic acidosis. cf., AST 58 U/L, ALT 25 U/L, ALK PHOS 168 U/L (09/29/2024, 3:38pm). cf., AST 45 U/L, ALT 22 U/L, ALK PHOS 164 U/L (09/30/2024, 7:03am). cf., AST 41 U/L, ALT 18 U/L, ALK PHOS 153 U/L (10/01/2024, 4:41am). cf., baseline AST range, 18 - 33 U/L (10/22/2020 - 07/04/2024), ALT range, 12-38 U/L (10/22/2020 - 07/04/2024), ALK PHOS range, 110-124 U/L (03/09/2022 - 07/04/2024). To address (a), patient received 1 liter of 0.9% NS @ 999 mL/hr (09/29/2024, 6:16pm), followed by 1 liter of lactated Ringers @ 125 mL/hr (09/29/2024, 9:42pm) in [facility] ER. Patient is being held off further IV fluid rehydration therapy in order to avoid further cardio-pulmonary embarrassment. 10. Acute exacerbation of chronic systolic CHF with reduced LVEF 30%, normal RV systolic function, inability to assess LV diastolic function due to prior mitral valve repair (as reported on 06/08/2022 TTE, CARDS Dr. Olman Collins). s/p AICD. Restart home-scheduled metoprolol succinate 50mg PO qam with a first dose now on 10/05/2024, 9:06pm. Hold OFF home-scheduled sacubitril 49mg - valsartan 51mg PO bid, lasix 40mg PO qam, spironolactone 25mg PO daily, and lisinopril 20mg PO daily, given the potential for any/all of these agents to cause further renal embarrassment. cf., admission creatinine 2.20 mg/dL (09/29/2024, 3:38pm). cf., repeat creatinine 1.90 mg/dL (09/30/2024, 7:03am). cf., repeat creatinine 1.88 mg/dL (10/01/2024, 4:41am). cf., repeat creatinine 1.91 mg/dL (10/02/2024, 4:53am). cf., repeat creatinine 1.58 mg/dL (10/03/2024, 4:27am). cf., repeat creatinine 1.24 mg/dL (10/04/2024, 4:32am). cf., current creatinine 1.10 mg/dL (10/05/2024, 8:40am). cf., baseline creatinine range, 0.95 mg/dL (04/25/2022, 6:21am) to 1.37 mg/dL (07/04/2024, 7:12am). 11. Acute type II NSTEMI with troponin #1 21.8 pg/mL (, 3:38pm) and troponin #2 22.9 pg/mL (, 5:12pm). Etiology of nominally elevated troponin levels remains unclear, but is most probably due to demand ischemia, which in turn, is due to (a) acute hypoxic respiratory failure, which in turn, is due to (b) acute exacerbation of chronic systolic CHF with reduced LVEF 30%, normal RV systolic function, inability to assess LV diastolic function due to prior mitral valve repair (as reported on 06/08/2022 TTE, CARDS Dr. Olman Collins). Hence, I have opted to observe this laboratory anomaly at this time. 12. Disposition. Code status, FULL CODE @ home. ACLS as required. Condition of patient remains tenuous, if not terminal, given the severity of patient's medical problems noted above. To this end, I called and spoke with the patient's daughter, Ms. Carla Tidwell ( ) on 10/10/2024, 9:49am, regarding the patient's medical issues and condition, and anticipated D/C to LTAC in the next 1-2 days, and she concurred with the assessment and plan as described above, asking only if (1) LTAC is covered by patient's Medicare plan, which I stated yes, patient's Medicare plan covers LTAC, and (2) if LTAC close to patient's home or Carla's home can be identified, so that Carla and/or other family members can visit the patient easily. I responded that I am not aware of any LTAC close to patient's home or Carla's home, in order to accommodate Carla's wish for patient to remain close to patient's home or Carla's home, and unfortunately, if LTAC were identified, and which accepted patient into its LTAC facility, that patient would be discharged to such LTAC facility, independent of its proximity to patient's home or Carla's home, as the patient's medical issues described above no longer warrant ICU level of care, or even continuation of care @ [facility], as of 10/09/2024, and hence, patient awaits discharge to LTAC ([facility]) in the 10/11/2024 am. Admission and Anticipated Discharge Date Admission Date: September 29, 2024 Subjective Unavailable as patient remains bellicose and belligerent, screaming, cursing, spitting, and lunging at hospital staff all day long, as if to head butt hospital staff with bilateral soft mitten restraints holding patient back. Review of Systems Constitutional: Unavailable as patient remains bellicose and belligerent, screaming, cursing, spitting, and lunging at hospital staff all day long, as if to [facility] staff with bilateral soft mitten restraints holding patient back. Physical Exam Constitutional: General: Bellicose and belligerent, screaming, cursing, spitting, and lunging at hospital staff all day long, as if to [facility] staff with bilateral soft mitten restraints holding patient back. HEENT: Normocephalic, atraumatic. Pupils equally round and reactive to light. No nystagmus, gaze paresis, anisocoria, miosis, mydriasis, hyphema, scleral injection, conjunctivitis, or pterygium. No otorrhea. No pharyngeal erythema, edema, or discharge. NG tube with [employer] HN 1.2 jovanni on hold. Neck: Supple, no stridor, bruit, goiter, or hepato-jugular reflux. Jugular venous pressure is estimated to be 3 cm above the sternal angle of [place], which in turn, is 5 cm above the level of the right atrium; with jugular venous pressure estimated to be 8 cm, then, there is no jugular venous distention on 10/10/2024. Lymphatics: No cervical (anterior/posterior), supraclavicular, infraclavicular, axillary, epitrochlear, or inguinal adenopathy. Chest: Symmetric rise and fall with respirations. Non-tender to palpation. s/p direct laryngoscopy with subsequent video laryngoscopy (10/05/2024, 1:43pm, Critical Care Dr. Edgardo Millard)(performed to address patient's acute hypoxic respiratory failure; subsequent finding of "concretion leading to upper airway obstruction."). s/p bronchoscopy (10/06/2024, 2:16pm, [facility] Critical Care Dr. Luis A Chao)(to evaluate patient for possible mucous plugging) revealing "clear airways." Subsequent bronchoscopy (10/06/2024, 6:43pm, Critical Care MARLENE Milligan) revealed "Small amount of thick clear secretions were suctioned out" implying that patient may have been suffering from recurrent mucous plugging as a proximal cause for his acute hypoxic respiratory failure on 10/06/2024, 2:08pm. Lungs: Clear to auscultation and percussion. No audible expiratory wheeze, egophony, pectoriloquy, increase in tactile fremitus, or flatness/dullness to percussion at the bases. Heart: Regular rate. Regular rhythm. S1 and S2 noted. No S3 or S4 summation gallop. No tripartite friction rub. Grade II/ early systolic murmur @ LLSB without radiation to the carotids, axilla, or back, and which remains invariant in regards to the respiratory cycle. Abdomen: Soft, non-tender, non-distended. No rebound, guarding, Logan's sign, or organomegaly. Bowel sounds auscultated in all 4 quadrants. Extremities: No clubbing, cyanosis, or edema in upper extremities or lower extremities bilaterally. 2+ pedal pulses bilaterally. Skin: No decubitus ulcer or enanthem. Genito-urinary: No urethral discharge. + poole catheter with urine output 0.89 mL/kg/hr (10/09/2024, 7:51am to 10/10/2024, 7:51am) Neurology: No myoclonus, tremors, or tics. Results & Data Results & Data Vital Signs (Past 12 Hours) Vital Signs Temp Pulse Resp BP Pulse Ox O2 Del Method 10/10/24 20:06 37.1 C 93 H 21 94 Trach Collar 10/10/24 20:00 139/69 10/10/24 20:00 Trach Collar 10/10/24 19:14 104 H 10/10/24 19:00 37.4 C 99 H 20 99 10/10/24 18:03 37.6 C H 110 H 15 97 10/10/24 18:00 190/113 H 10/10/24 16:02 187/98 H 10/10/24 15:48 Trach Collar 10/10/24 15:00 37.3 C 107 H 28 H 96 10/10/24 14:03 36.7 C 109 H 25 H 98 10/10/24 14:01 175/105 H 10/10/24 13:00 37.0 C 93 H 26 H 96 10/10/24 12:09 37.7 C H 110 H 30 H 97 10/10/24 12:01 165/94 H 10/10/24 11:06 37.6 C H 105 H 23 100 10/10/24 11:01 162/73 H 10/10/24 10:03 38.1 C H 105 H 31 H 95 10/10/24 10:00 182/103 H 10/10/24 09:57 38.1 C H 112 H 17 94 10/10/24 09:01 178/107 H 10/10/24 08:57 38.3 C H 121 H 21 97 Laboratory Results Abnormal lab results 10/10/24 10/10/24 Range/Units 04:02 08:36 WBC 12.67 H (4.8-10.8) K/ul RBC 2.92 L (4.70-6.10) M/uL Hgb 10.1 L (14.0-18.0) g/dl Hct 30.6 L (42.0-52.0) % MCV 104.8 H (80.0-100.0) fL MCH 34.6 H (25.0-34.0) pg RDW Std Deviation 58.0 H (36.4-46.3) fL RDW Coeff of Donna 15.0 H (11.5-14.5) % Neut # (Auto) 9.98 H (1.40-6.50) K/uL [place] # (Auto) 1.00 H (0.11-0.59) K/uL Immature Gran # (Auto) 0.30 H (0.01-0.20) K/uL Heparin Anti-Xa, Unfract 0.25 L (0.3-0.7) IU/ml Calcium 8.5 L (8.6-10.3) mg/dl B-Natriuretic Peptide > 4700 H (0-100) pg/ml Albumin 2.6 L (3.4-5.0) gm/dl Procalcitonin 4.97 H (0-0.5) ng/ml PG Care Time/CCT Total # of Minutes Spent Total Time Spent with Patient: Total time spent is greater than 50% in coordination of care (as documented) at patient's floor/unit and/or counseling patient: Coding Level of Care Code 00793 SUB INP/OBS CARE 2/35MIN Diagnoses Acute hypoxic respiratory failure J96.01 HAP (hospital-acquired pneumonia) J18.9; Y95
[2024-10-11 04:20] LABS: Hematocrit (blood only) 32.2 % (42.0-52.0); Hemoglobin 10.9 g/dl (14.0-18.0); Immature Granulocytes # (auto) 0.29 K/uL (0.01-0.20); Immature Granulocytes % (auto) 2.5 %; Mean Corpuscular Hemoglobin 35.2 pg (25.0-34.0); Mean Corpuscular Volume 103.9 fL (80.0-100.0); Platelet Count 357 K/uL (130-400); RDW Standard Deviation 55.8 fL (36.4-46.3); Red Blood Count 3.10 M/uL (4.70-6.10); White Blood Count 11.73 K/ul (4.8-10.8)
[2024-10-11 07:38] LABS: Anion Gap 8.0 (3-11); Blood Urea Nitrogen 10.0 mg/dl (6-23); Calcium 8.4 mg/dl (8.6-10.3); Carbon Dioxide 23.0 mmol/L (21-32); Chloride 105.0 mmol/L (98-107); Creatinine Clr Calc Pharmacy 87.6 ml/min; Glucose 78.0 mg/dl (70-99(Fasting)); Magnesium 1.7 mg/dl (1.7-2.4); Potassium 3.7 mmol/L (3.5-5.1); Sodium 136.0 mmol/L (136-145)
[2024-10-11 08:10] VITALS: TEMP 99.5
--- NOTE | 2024-10-11 09:44 | Pulmonology Progress Note ---
Date of Service October 11, 2024 Assessment & Plan (1) HAP (hospital-acquired pneumonia): Plan: Blood cultures negative to date. Sputum cultures positive for Staph aureus. Patient escalated to meropenem 10/10/2024 due to increased secretions from his tracheostomy. Repeat culture sent. Recommended total 2 weeks of antibiotics. Oxygen requirements continue to improve. Continue Peridex mouthwash to help limit bacterial load and mouth. (2) Acute hypoxic respiratory failure: Plan: Continue to wean FiO2 as able. (3) Tracheostomy, acute management: Plan: Patient was trached 10/06/2024 by prior ICU provider due to concerns of upper airway occlusion. The cuff from the tracheostomy has been down for several days. He could potentially be downsized or decannulated next week. (4) Alcohol withdrawal delirium: Plan: Patient continues to be in significant alcohol withdrawal. Continue Valium taper, clonidine patch and as needed Ativan. Continue thiamine. (5) Acute systolic heart failure: Plan: Patient with significantly elevated BNP. Continue diuresis. Urine output has been excellent. (6) DVT (deep venous thrombosis): Plan: Occlusive DVT noted on ultrasound from 10/02/2024 in the right brachial vein and extensive occlusive superficial venous thrombosis throughout the right basilic vein. Continue Eliquis for 3 months Plan Patient likely to be transferred to LTAC today. Pulmonary will continue to follow while he remains hospitalized. Admission and Anticipated Discharge Date Admission Date: September 29, 2024 Subjective Patient seen and examined. Continues to be delirious at times. Remains in soft mitt restraints. Oxygenation has improved and he is on minimal supplemental oxygen at this time. Remains on trach collar. Review of Systems Review of Systems: All systems reviewed & are unremarkable except as noted in HPI & below Physical Exam Physical Exam: Constitutional: Severely agitated and frequently flailing. Soft mitt restraints in place. Eyes: Pupils are equal round and reactive to light. Conjunctivae are normal. Anicteric sclera. Ears nose, mouth and throat:Normal posterior oropharynx. Uvula is midline. Size [address] in [address]. Sutures in place. Neck: Trachea is midline. Visual inspection is normal. Respiratory: Mildly diminished at the left lung base with crackles. Cardiovascular: Tachycardic. No murmurs. No edema. Gastrointestinal: Normal bowel sounds, soft, nontender and nondistended. No hepatosplenomegaly noted. Musculoskeletal: No cyanosis. Patient is able to move all extremities. Strength is 5 out of 5 in the upper and lower extremities. Skin: No rashes, warm dry and intact. Neurologic: No obvious focal neurological deficits seen. Psychiatric: Anxious and agitated appearing. Results & Data Results & Data Vital Signs (Past 12 Hours) Vital Signs Temp Pulse Pulse Resp BP BP BP 10/11/24 08:01 37.5 C 103 H 19 121/87 10/11/24 06:00 125/75 10/11/24 05:17 36.8 C 102 H 23 164/105 H 10/11/24 01:24 185/100 H 10/11/24 01:06 37.4 C 102 H 21 10/10/24 23:10 92 H Pulse Ox O2 Del Method O2 Flow Rate FiO2 10/11/24 08:01 99 Trach Collar 7 28 10/11/24 06:00 10/11/24 05:17 99 Trach Collar 10/11/24 01:24 10/11/24 01:06 100 10/10/24 23:10 PG Care Time/CCT Total # of Minutes Spent Total Time Spent with Patient: Total time spent is greater than 50% in coordination of care (as documented) at patient's floor/unit and/or counseling patient: Coding Level of Care Code 63522 SUB INP/OBS CARE 2/35MIN Diagnoses HAP (hospital-acquired pneumonia) J18.9; Y95 Acute hypoxic respiratory failure J96.01 Tracheostomy, acute management Z43.0 Alcohol withdrawal delirium F10.931 Acute systolic heart failure I50.21 DVT (deep venous thrombosis) I82.409
[2024-10-11 10:43] VITALS: BP 146/75; PULSE 104; RESP 24; O2SAT 94
--- NOTE | 2024-10-11 18:40 | Discharge Summary ---
Discharge Summary Date of Service October 11, 2024 Principal Dx & Hospital Course #1 = Principal Diagnosis (1) Acute hypoxic respiratory failure: (2) HAP (hospital-acquired pneumonia): Plan 69 years old male with PMH of FULL CODE @ home, HTN, non-ischemic cardiomyopathy with chronic systolic CHF with LVEF 30%, normal RV systolic function, and indeterminate LV diastolic function, s/p AICD, and ongoing EtOH abuse who presented to [facility] ER on 09/29/2024 with comsplaint of abdominal distention, generally overall feeling unwell. On exam he did not appear anxious, no tremors. No significant ascites appreciated during my physical exam. No RUQ tenderness. Only trace bilateral LE edema. Patient was subsequently admitted to the inpatient hospitalist service @ [facility] on 09/29/2024 with the following diagnoses: 1. Acute ETOH intoxication with ETOH 143.3 mg/dL (09/29/2024, 5:12pm). 2. Acute ETOH withdrawal with last swig of whisky (09/29/2024, 6:00am). 3. Acute hypokalemia with admission K 2.4 mmol/L (09/29/2024, 3:38pm). 4. Acute hypomagnesemia with admission Mg 1.6 mg/dL (09/29/2024, 3:38pm). 5. Acute hypophosphatemia with admission PO4 2.0 mg/dL (, 9:14pm). 6. Acute hypoxic respiratory failure with O2 saturation 71% on room air (09/30/2024, 2:10am), now with O2 saturation 88-89% on 10 liters/minute O2 via oxymask (09/30/2024, 7:30am). 7. Acute hypercapnic respiratory failure with CO2 45 mmol/L (09/30/2024, 7:03am). 8. Acute kidney injury with admission creatinine 2.20 mg/dL (09/29/2024, 3:38pm). 9. Acute lactic acidosis with admission lactic acid #1 4.2 mmol/L (09/30/2024, 3:24pm). 10.Acute exacerbation of chronic systolic CHF with reduced LVEF 30%, normal RV systolic function, inability to assess LV diastolic function due to prior mitral valve repair (as reported on 06/08/2022 TTE, CARDS Dr. Olman Collins). 11.Acute type II NSTEMI with troponin #1 21.8 pg/mL (, 3:38pm) and troponin #2 22.9 pg/mL (, 5:12pm). The following medical issues were addressed while the patient remained in [facility] ICU bed #E104-1 from admission date 09/29/2024 through discharge date 10/11/2024: 1. Acute ETOH intoxication with ETOH 143.3 mg/dL (09/29/2024, 5:12pm). Continue ETOH abstinence while in [facility]. 2. Acute ETOH withdrawal with last swig of whisky (09/29/2024, 6:00am). Continue telemetry, CIWA scale scoring with ativan prn, OFF precedex infusion (since 10/05/2024, 12:31pm infusion), OFF phenobarbital 32.5mg IV bid (10/03/2024, 9:01pm; 10/04/2024, 8:53am; 10/05/2024, 8:33am), OFF phenobarbital 30mg PO bid x 5 doses (starting on 10/05/2024, 9:01pm; stopping after 10/07/2024, 9:34pm dose), OFF lorazepam 1mg IV q6 prn x 7 doses (starting on 10/08/2024, 12:06am, stopping after 10/10/2024, 9:28pm dose), ON diazepam 10mg PO q12 x 1 dose (10/11/2024, 10:17am), MVI, thiamine, and folate supplementation. Patient acted out on a daily basis while in [facility] ICU bed #E104-1 and was belligerent and bellicose, spitting out his medications, spitting at the nursing staff, lunging at the nursing staff in futile attempts to head butt the nurses while being held back with soft mitten restraints bilaterally. 3. Acute hypokalemia with admission K 2.4 mmol/L (09/29/2024, 3:38pm). PERSISTENT s/p supplementation with KCl 40meq PO x 1 dose (09/29/2024, 6:15pm) with post-supplement K 3.2 mmol/L (09/30/2024, 7:03am) and current K 3.0 mmol/L (09/30/2024, 11:09am). Patient subsequently received KCl 10meq IV q1h x 6 bags (09/30/2024, 12:43pm, 12:44pm, 1:34pm). PERSISTENT with post-supplement K 3.4 mmol/L (10/01/2024, 8:43am). Patient subsequently received KCl 10meq IVv q1h x 4 bags (10/01/2024, 6:47pm). Acute hypokalemia RESOLVED with post-supplement K 3.8 mmol/L (10/02/2024, 4:53am), repeat K 3.5 mmol/L (10/03/2024, 4:27am), repeat K 3.8 mmol/L (10/04/2024, 4:32am), repeat K 4.6 mmol/L (10/05/2024, 8:40am), repeat K 4.6 mmol/L (10/06/2024 4:16am), repeat K 3.8 mmol/L (10/07/2024, 5:11am), repeat K 4.2 mmol/L (10/08/2024, 4:06am), repeat K 3.9 mmol/L (10/09/2024, 4:16am), repeat K 3.9 mmol/L (10/10/2024, 8:36am), and discharge K 3.7 mmol/L (10/11/2024, 4:01am). Of note, etiology of acute hypokalemia was most probably due to chronic ETOH-mediated berta-uresis. 4. Acute hypomagnesemia with admission Mg 1.6 mg/dL (09/29/2024, 3:38pm). RESOLVED s/p supplement with magnesium sulfate 1g IV x 2 doses (09/29/2024, 6:13pm, 9:42pm) with post-supplement Mg 2.0 mg/dL (09/30/2024, 7:03am), repeat Mg 1.9 mg/dL (10/01/2024, 4:41am), repeat Mg 1.9 mg/dL (10/02/2024, 4:53am), repeat Mg 2.2 mg/dL (10/03/2024, 4:27am), repeat Mg 2.0 mg/dL (10/04/2024, 4:32am), repeat Mg 2.0 mg/dL (10/05/2024, 8:40am), repeat Mg 1.8 mg/dL (10/06/2024, 4:16am), repeat Mg 1.9 mg/dL (10/07/2024, 5:11am), repeat Mg 2.1 mg/dL (10/08/2024, 4:06am), repeat Mg 1.8 mg/dL (10/10/2024, 8:36am), and discharge Mg 1.1 mg/dL (10/11/2024, 4:01am). Of note, etiology of acute hypomagnesemia was most probably due to chronic ETOH-mediated magne-uresis. 5. Acute hypophosphatemia with admission PO4 2.0 mg/dL (, 9:14pm). RESOLVED. No KPO4 supplement given repeat, normal PO4 4.0 mg/dL (09/30/2024, 3:24pm), repeat PO4 3.5 mg/dL (10/01/2024, 4:41am), repeat PO4 4.0 mg/dL (10/02/2024, 4:53am), repeat PO4 2.9 mg/dL (10/03/2024, 4:27am). cf., repeat PO4 1.9 mg/dL (10/04/2024, 4:32am). Patient subsequently received KPO4 12 mmol IV x 1 dose (10/04/2024, 6:30am) with post-supplement PO4 2.0 mg/dL (10/04/2024, 9:50am), repeat PO4 2.5 mg/dL (10/05/2024, 8:40am), repeat PO4 2.3 mg/dL (10/06/2024, 4:16am)(for which patient received NaPO4 24 mmol IV x 1 dose (10/06/2024, 9:16am), and last recorded PO4 3.6 mg/dL (10/07/2024, 5:11am). Check repeat PO4 level in the 10/12/2024 am, and supplement to attain/maintain PO4 level > 2.5 mg/dL. 6. Acute hypoxic respiratory failure with O2 saturation 71% on room air (09/30/2024, 2:10am), followed by O2 saturation 88-89% on 10 liters/minute O2 via oxymask (09/30/2024, 7:30am), followed by O2 saturation 94% on High Flow oxygen @ 40 L/min, FIO2 = 0.45 (10/01/2024, 6:01pm), followed by O2 saturation 96% on High Flow oxygen @ 40 L/min, FIO2 = 0.40 (10/02/2024, 7:32am). RESOLVED transiently with O2 saturation 99% on 4 L/min O2 via NC (10/02/2024, 12:51pm), O2 saturation 92% on 3 L/min O2 via NC (10/03/2024, 6:00am), O2 saturation 96% on room air (10/04/2024, 10:01am. Etiology of acute hypoxic respiratory failure remains unclear as patient remains afebrile with WBC remaining normal (cf., admission WBC 5.56, N56 L30 M12 E1 B1 (09/29/2024, 3:38pm) and repeat WBC 9.38, no differential (09/30/2024, 7:03am) and portable CXR (09/29/2024) negative for infiltrate/consolidation, effusion, cardiomegaly, pulmonary vascular congestion, or pneumothorax (by my review). Subsequently, I ordered procalcitonin (09/30/2024, 2:32pm), lactic acid (09/30/2024, 2:32pm), and portable CXR (09/30/2024, 2:33pm). Subsequently, procalcitonin was normal @ 0.10 ng/mL (09/30/2024, 3:24pm), lactic acid was elevated at 4.2 mmol/L (09/30/2024, 3:24pm), and portable CXR (09/30/2024, 2:33pm) revealed "Stable cardiac valve repair and pacemaker. Stable cardiomegaly with increased pulmonary vascular congestion. There is increased patchy opacity throughout the right lung and at the left lung base. No pleural effusion or pneumothorax." Hence, acute exacerbation of chronic systolic CHF with last recorded LVEF 30% (as noted on 06/08/2022, 1:13pm TTE, CARDS Dr. Olman Collins) may be contributing to patient's acute hypoxic respiratory failure. Subsequently, I ordered TTE for the 10/02/2024 am; In the interim, patient was not started on lasix, but instead, patient was started on metoprolol tatrate 25mg PO bid (10/05/2024, 9:40am), in lieu of his home-scheduled metoprolol succinate XL 50mg PO qam, given BP 149/103 (10/05/2024, 8:03pm). Of note, patient underwent direct laryngoscopy with subsequent video laryngoscopy (10/05/2024, 1:43pm, Critical Care Dr. Edgardo Millard)(performed to address patient's acute hypoxic respiratory failure; subsequent finding of "concretion leading to upper airway obstruction.") Of note, patient was intubated emergently during Code Purple (10/06/2024, 2:08pm, [facility] ER Dr. Pocne Oleary) to address acute hypoxic respiratory failure with O2 sat 60% on room air (10/06/2024, 1:51pm), of unclear etiology, with subsequent bronchoscopy (10/06/2024, 2:16pm, [facility] Critical Care Dr. Luis A Chao)(to evaluate patient for possible mucous plugging) revealing "clear airways." Of note, patient subsequently underwent workup to evaluate the etiology of patient's acute hypoxic respiratory failure on 10/06/2024, 1:51pm with O2 sat 60% on room air (10/06/2024, 1:51pm), which included the following tests: A. CTA chest (10/06/2024, 3:07pm): 1. Negative for pulmonary embolus. 2. Negative for aortic dissection. 3. Bilateral pleural effusions, left side greater than right with atelectatic changes in the lower lobes bilaterally as well as patchy groundglass densities compatible with the recent CHF/ARDS. B. TTE (10/06/2024, 3:26pm): 1. LVEF 25-30%. Severe global LV dysfunction. 2. Mildly dilated LV. Mild concentric LVH. 3. RV mild to moderately dilated with moderate RV dysfunction. 4. Post mitral valve repair with annuloplasty ring. Normal expected transvalvular gradients and no significant MR. 5. Moderate pulmonary HTN with estimated PASP 50-55 mm Hg. Estimated RAP 15 mm Hg. 6. Compared to prior study on 04/23/2022, no significant changes. (as per CARDS Dr. Chepe Guidry). C. Flexible bronchoscopy (10/06/2024, 6:43pm, Critical Care Mr. Rajinder Choudhury, [facility]): "Bronchoscope was advanced down ETT, joyce visualized. The bronchoscope was then withdrawn with the ETT to the just below the vocal chords until transillumination visualized by Dr. Millard and ballotment of tissue noted by myself on the scope. Seeker needle was then placed through anterior neck by Dr. Millard, visualized in good position with brnochoscope and free of the backwall. The guidewire was advanced and visualized going downward towards the joyce. Initial Dilation was performed and again visualized free of the back wall. Serial dilations were completed by Dr. Millard and 6.0 cuffed Trahcestomy with inner cannula was then placed into the trachea, direct visualization with bronchoscope of cuff up and tracheostomy freely in the trachea. The scope and ETT was removed suctioning out small amount of thin bloody secretions. Following securing of the tracheostomy, the brochoscope was then passed down the newly creathed perc trach inner cannula noting no obstruction correct placement noted above the joyce. The right and left mainstem bronchous were inspected that looked clean and pink. Small amount of thick clear secretions were suctioned out. The bronchoscope was then removed and was noted to be intact. No samples were sent to lab." D. Lung U/S (10/06/2024, 6:46pm, Critical Care Dr. Edgardo Millard): "Simple appearing left pleural effusion with type a profile with absence of B-lines." E. Lumbar puncture (10/06/2024, 7:36pm, Critical Care Dr. Edgardo Millard): clear, colorless, WBC 0, RBC 20, cell count 3, glucose 76, protein 43.1, Lyme IgM/IgG pending. F. Portable CXR (10/06/2024, 7:50pm): 1. Small left pleural effusion with infiltrate and/or atelectasis at the left lung base. G. Portable CXR (10/06/2024, 7:52am): 1. Stable lines and tubes. 2. Cardiomegaly and AICD with evidence of congestive failure. 3. Left large right pleural effusions with bibasilar consolidation. This is similar to yesterday. In sum, given the development of bibasilar consolidation with bilateral effusions (as noted on 10/06/2024, 7:52am portable CXR), combined with procalcitonin levels that remain consistently elevated above 0.20 ng/mL since 10/02/2024 (see below), I surmise that this patient has developed an acute bibasilar Hospital-Acquired Pneumonia (HAP) with effusions AFTER being admitted to [facility] on 09/30/2024. Moreover, acute bibasilar HAP is most likely the etiology for patient's acute hypoxic respiratory failure that preceded announcement of Code Purple (10/06/2024, 2:08pm, [facility] ER Dr. Ponce Oleary). cf., procalcitonin #1 0.10 ng/mL (09/30/2024, 3:24pm) cf., procalcitonin #2 0.15 ng/mL (10/01/2024, 4:41am). cf., procalcitonin #3 0.35 ng/mL (10/02/2024, 4:53am). cf., procalcitonin #4 1.00 ng/mL (10/03/2024, 9:38am). cf., procalcitonin #5 0.40 ng/mL (10/05/2024, 8:40am). cf., procalcitonin #6 0.24 ng/mL (10/06/2024, 8:18am). cf., procalcitonin #7 0.31 ng/mL (10/07/2024, 5:11am). To treat acute bibasilar Hospital-Associated Pneumonia (HAP) with effusions, patient was started on zosyn 4.5g IV q8 (day #1 on 10/07/2024, 12:58pm). Given that patient tested negative for MRSA twice (see below), the likelihood that patient has developed an acute staphylococcal bibasilar HAP remains very low, and hence, empiric vancomycin was NOT started on 10/07/2024. cf., MRSA nares PCR screen negative (09/30/2024, 1:00pm). cf., MRSA nares PCR screen negative (10/07/2024, 8:15am). Subsequently, patient's procalcitonin levels continued to increase: cf., procalcitonin #8 5.78 ng/mL (10/08/2024, 4:06am). cf., procalcitonin #9 10.10 ng/mL (10/08/2024, 9:18am). cf., procalcitonin levels > 0.20 ng/mL in the setting of pleural effusion are consistent with acute bacterial infection. Hence, I surmised that zosyn 4.5g IV q8 is not sufficient to treat patient's acute bibasilar Hospital-Associated Pneumonia (HAP) with effusions. Hence, I discontinued zosyn 4.5g IV q8 and I started patient on meropenem 500mg IV q6 (day #1 on 10/08/2024, 12:19pm, 6:00pm) to provide broader coverage against gram negative aerobes and gram negative anaerobes. Subsequently, patient's procalcitonin levels have continued to decrease: cf., procalcitonin #10 7.91 ng/mL (10/09/2024, 4:16am). cf., procalcitonin #11 4.97 ng/mL (10/10/2024, 4:02am). cf., procalcitonin #12 2.20 ng/mL (10/11/2024, 3:58am). Hence, I have opted to continue meropenem 500mg IV q6 (day #1 on 10/08/2024, 12:19pm, 6:00pm). 7. Acute hypercapnic respiratory failure with CO2 45 mmol/L (09/30/2024, 7:03am) and CO2 35 mmol/L (10/01/2024, 4:41am), RESOLVED with CO2 29 mmol/L (10/02/2024, 4:53am). Etiology of of acute hypercapnic respiratory failure remains unclear in this patient who is still hyperventilating at: 29 breaths/minute (09/30/2024, 7:30am) 34 breaths/minute (09/30/2024, 1:03pm) 24 breaths/minute (10/01/2024, 8:00 am and 6:01pm) 22 breaths/minute (10/04/2024, 10:01am). 24 breaths/minute (10/05/2024, 8:03pm). Of note, patient underwent portable CXR (09/30/2024, 2:33pm) to check for e vidence of COPD, bronchiectasis/fibrosis, and/or atelectasis, which can lead to hypercapnia, and none of which were observed on portable CXR (09/30/2024, 2:33pm). 8. Acute kidney injury with admission creatinine 2.20 mg/dL (09/29/2024, 3:38pm), RESOLVED. cf., admission creatinine 2.20 mg/dL (09/29/2024, 3:38pm). cf., repeat creatinine 1.90 mg/dL (09/30/2024, 7:03am). cf., repeat creatinine 1.88 mg/dL (10/01/2024, 4:41am). cf., repeat creatinine 1.91 mg/dL (10/02/2024, 4:53am). cf., repeat creatinine 1.58 mg/dL (10/03/2024, 4:27am). cf., repeat creatinine 1.24 mg/dL (10/04/2024, 4:32am). cf., repeat creatinine 1.10 mg/dL (10/05/2024, 8:40am). cf., repeat creatinine 1.17 mg/dL (10/06/2024, 4:16am). cf., repeat creatinine 0.96 mg/dL (10/07/2024, 5:11am). cf., repeat creatinine 1.11 mg/dL (10/08/2024, 4:06am). cf., repeat creatinine 0.90 mg/dL (10/09/2024, 4:16am). cf., repeat creatinine 1.01 mg/dL (10/10/2024, 8:36am). cf., discharge creatinine 0.86 mg/dL (10/11/2024, 4:01am). cf., baseline creatinine range, 0.95 mg/dL (04/25/2022, 6:21am) to 1.37 mg/dL (07/04/2024, 7:12am). Etiology of acute kidney injury remains unclear, but may be due to patient's home-scheduled sacubitril 49mg - valsartan 51mg PO bid, lasix 40mg PO qam, spironolactone 25mg PO daily, and lisinopril 20mg PO daily given the potential for any/all of these agents to cause further renal embarrassment. Hence, I have opted to hold OFF patient's home-scheduled sacubitril 49mg - valsartan 51mg PO bid, lasix 40mg PO qam, spironolactone 25mg PO daily, and lisinopril 20mg PO daily. Observe. 9. Acute lactic acidosis with admission lactic acid #1 4.2 mmol/L (09/30/2024, 3:24pm), RESOLVED. cf., lactic acid # 2 4.3 mmol/L (09/30/2024, 6:18pm). cf., lactic acid # 3 3.6 mmol/L (09/30/2024, 8:00pm). cf., lactic acid # 4 3.3 mmol/L (10/01/2024, 4:41am). cf., lactic acid # 5 5.7 mmol/L (10/01/2024, 9:04am). cf., lactic acid # 6 2.3 mmol/L (10/01/2024, 7:07pm). cf., lactic acid # 7 1.4 mmol/L (10/02/2024, 4:53am). cf., lactic acid # 8 2.9 mmol/L (10/03/2024, 9:38am). cf., lactic acid # 9 1.5 mmol/L (10/04/2024, 4:32am). cf., lactic acid #10 5.8 mmol/L (10/05/2024, 8:40am). cf., lactic acid #11 1.5 mmol/L (10/05/2024, 12:41pm). cf., lactic acid #12 1.9 mmol/L (10/06/2024, 8:18am). cf., lactic acid #13 1.1 mmol/L (10/07/2024, 5:11am). cf., lactic acid #14 0.8 mmol/L (10/08/2024, 4:06am). cf., lactic acid #15 1.4 mmol/L (10/09/2024, 4:16am). cf., lactic acid #16 1.2 mmol/L (10/10/2024, 4:02am). cf., lactic acid #17 1.2 mmol/L (10/11/2024, 3:58am). Etiology of acute lactic acidosis remains unclear, but is probably due to a combination of (a) acute dehydration from chronic ETOH-mediated diuresis and (b) aprwt-di-[id number] transaminitis, which in turn, is due to chronic alcoholic hepatitis. In addition, I surmised that the propylene glycol solvent used in the phenobarbital IV formulation @ [facility] contributed to increased formation of lactic acid. Now that patient is off phenobarbital 32.5mg IV bid (10/03/2024, 9:01pm; 10/04/2024, 8:53am; 10/05/2024, 8:33am), and on phenobarbital 30mg PO bid x 5 doses (starting on 10/05/2024, 8:10pm), I did not expect recurrence of acute lactic acidosis, and it did not recur. cf., AST 58 U/L, ALT 25 U/L, ALK PHOS 168 U/L (09/29/2024, 3:38pm). cf., AST 45 U/L, ALT 22 U/L, ALK PHOS 164 U/L (09/30/2024, 7:03am). cf., AST 41 U/L, ALT 18 U/L, ALK PHOS 153 U/L (10/01/2024, 4:41am). cf., AST 86 U/L, ALT 49 U/L, ALK PHOS 155 U/L (10/05/2024, 8:40am). cf., AST 50 U/L, ALT 40 U/L, ALK PHOS 119 U/L (10/06/2024, 3:05pm). cf., AST 20 U/L, ALT 24 U/L, ALK PHOS 96 U/L (10/08/2024, 4:06am). cf., AST 15 U/L, ALT 19 U/L, ALK PHOS 91 U/L (10/09/2024, 4:16am). cf., AST 17 U/L, ALT 13 U/L, ALK PHOS 94 U/L (10/10/2024, 4:02am). cf., baseline AST range, 18 - 33 U/L (10/22/2020 - 07/04/2024), ALT range, 12-38 U/L (10/22/2020 - 07/04/2024), ALK PHOS range, 110-124 U/L (03/09/2022 - 07/04/2024). To address (a), patient received 1 liter of 0.9% NS @ 999 mL/hr (09/29/2024, 6:16pm), followed by 1 liter of lactated Ringers @ 125 mL/hr (09/29/2024, 9:42pm) in [facility] ER. Patient is being held off further IV fluid rehydration therapy in order to avoid further cardio-pulmonary embarrassment. 10. Acute exacerbation of chronic systolic CHF with reduced LVEF 30%, normal RV systolic function, inability to assess LV diastolic function due to prior mitral valve repair (as reported on 06/08/2022 TTE, CARDS Dr. Olman Collins). s/p AICD. Restart home-scheduled metoprolol succinate 50mg PO qam with a first dose now on 10/05/2024, 9:06pm. Hold OFF home-scheduled sacubitril 49mg - valsartan 51mg PO bid, lasix 40mg PO qam, spironolactone 25mg PO daily, and lisinopril 20mg PO daily, given the potential for any/all of these agents to cause further renal embarrassment. cf., admission creatinine 2.20 mg/dL (09/29/2024, 3:38pm). cf., repeat creatinine 1.90 mg/dL (09/30/2024, 7:03am). cf., repeat creatinine 1.88 mg/dL (10/01/2024, 4:41am). cf., repeat creatinine 1.91 mg/dL (10/02/2024, 4:53am). cf., repeat creatinine 1.58 mg/dL (10/03/2024, 4:27am). cf., repeat creatinine 1.24 mg/dL (10/04/2024, 4:32am). cf., current creatinine 1.10 mg/dL (10/05/2024, 8:40am). cf., repeat creatinine 1.17 mg/dL (10/06/2024, 4:16am). cf., repeat creatinine 0.96 mg/dL (10/07/2024, 5:11am). cf., repeat creatinine 1.11 mg/dL (10/08/2024, 4:06am). cf., repeat creatinine 0.90 mg/dL (10/09/2024, 4:16am). cf., repeat creatinine 1.01 mg/dL (10/10/2024, 8:36am). cf., discharge creatinine 0.86 mg/dL (10/11/2024, 4:01am). cf., baseline creatinine range, 0.95 mg/dL (04/25/2022, 6:21am) to 1.37 mg/dL (07/04/2024, 7:12am). 11. Acute type II NSTEMI with troponin #1 21.8 pg/mL (, 3:38pm) and troponin #2 22.9 pg/mL (, 5:12pm). Etiology of nominally elevated troponin levels remains unclear, but is most probably due to demand ischemia, which in turn, is due to (a) acute hypoxic respiratory failure, which in turn, is due to (b) acute exacerbation of chronic systolic CHF with reduced LVEF 30%, normal RV systolic function, inability to assess LV diastolic function due to prior mitral valve repair (as reported on 06/08/2022 TTE, CARDS Dr. Olman Collins). Hence, I have opted to observe this laboratory anomaly at this time. 12. Disposition. Code status, FULL CODE @ home. ACLS as required. Condition of patient remains tenuous, if not terminal, given the severity of patient's medical problems noted above. To this end, I called and spoke with the patient's daughter, Ms. Carla Tidwell ( ) on 10/10/2024, 9:49am, regarding the patient's medical issues and condition, and anticipated D/C to LTAC in the next 1-2 days, and she concurred with the assessment and plan as described above, asking only if (1) LTAC is covered by patient's Medicare plan, which I stated yes, patient's Medicare plan covers LTAC, and (2) if LTAC close to patient's home or Carla's home can be identified, so that Carla and/or other family members can visit the patient easily. I responded that I am not aware of any LTAC close to patient's home or Carla's home, in order to accommodate Carla's wish for patient to remain close to patient's home or Carla's home, and unfortunately, if LTAC were identified, and which accepted patient into its LTAC facility, that patient would be discharged to such LTAC facility, independent of its proximity to patient's home or Carla's home, as the patient's medical issues described above no longer warrant ICU level of care, or even continuation of care @ [facility], as of 10/09/2024, and hence, patient was ultimately discharged to LTAC ([facility]) in the 10/11/2024 am. Admission HPI Per Admitting Provider Carlton Jose is a 69yo male with history of HTN, NICM with EF of 30% in 06/2022) with AICD in place presenting with worsening abdominal distention and "not feeling well". Patient lives at home alone. His called his son today and states that he is wasn't feeling well. Patient states he has not eaten a meal for the last 3 days. He has been drinking alcohol and iced tea. He had a bar over his door and was not seeing anyone. He drinks daily - approximately 10 shots of whiskey per day with last drink being today 09/29/24 at 06:00. Patient with no prior history of withdrawal but reports he has not stropped drinking for any significant time period over the last 3 years. He reports diffuse body pain, fatigue and has had nausea and vomiting since returning from [place]. He also reports swelling in his legs bilaterally and swelling in his abdomen. No additional complaints. Patient denies fever, chills, cough, SOB, diarrhea. Likely has not been taking his medications as prescribed - states he has not been taking his anxiety pills, not sure about the others. In the ER he is afebrile, hypertensive and tachycardic ER Course: Zofran 4mg IV Mg x 1gm KCL 40mEq NSS x 1L Thiamine 500mg IV Ativan 1mg IV Discharge Exam Constitutional General: Bellicose and belligerent, screaming, cursing, spitting, and lunging at hospital staff all day long, as if to head butt hospital staff with bilateral soft mitten restraints holding patient back. HEENT: Normocephalic, atraumatic. Pupils equally round and reactive to light. No nystagmus, gaze paresis, anisocoria, miosis, mydriasis, hyphema, scleral injection, conjunctivitis, or pterygium. No otorrhea. No pharyngeal erythema, edema, or discharge. NG tube with [employer] HN 1.2 jovanni on hold. Neck: Supple, no stridor, bruit, goiter, or hepato-jugular reflux. Jugular venous pressure is estimated to be 3 cm above the sternal angle of [place], which in turn, is 5 cm above the level of the right atrium; with jugular venous pressure estimated to be 8 cm, then, there is no jugular venous distention on 10/11/2024. Lymphatics: No cervical (anterior/posterior), supraclavicular, infraclavicular, axillary, epitrochlear, or inguinal adenopathy. Chest: Symmetric rise and fall with respirations. Non-tender to palpation. s/p direct laryngoscopy with subsequent video laryngoscopy (10/05/2024, 1:43pm, Critical Care Dr. Edgardo Millard)(performed to address patient's acute hypoxic respiratory failure; subsequent finding of "concretion leading to upper airway obstruction."). s/p bronchoscopy (10/06/2024, 2:16pm, [facility] Critical Care Dr. Luis A Chao)(to evaluate patient for possible mucous plugging) revealing "clear airways." Subsequent bronchoscopy (10/06/2024, 6:43pm, Critical Care MARLENE Milligan) revealed "Small amount of thick clear secretions were suctioned out" implying that patient may have been suffering from recurrent mucous plugging as a proximal cause for his acute hypoxic respiratory failure on 10/06/2024, 2:08pm. Lungs: Clear to auscultation and percussion. No audible expiratory wheeze, egophony, pectoriloquy, increase in tactile fremitus, or flatness/dullness to percussion at the bases. Heart: Regular rate. Regular rhythm. S1 and S2 noted. No S3 or S4 summation gallop. No tripartite friction rub. Grade II/ early systolic murmur @ LLSB without radiation to the carotids, axilla, or back, and which allison ins invariant in regards to the respiratory cycle. Abdomen: Soft, non-tender, non-distended. No rebound, guarding, Logan's sign, or organomegaly. Bowel sounds auscultated in all 4 quadrants. Extremities: No clubbing, cyanosis, or edema in upper extremities or lower extremities bilaterally. 2+ pedal pulses bilaterally. Skin: No decubitus ulcer or enanthem. Genito-urinary: No urethral discharge. + poole catheter with urine output 1.79 mL/kg/hr (10/10/2024, 6:15pm to 10/11/2024, 6:15pm) Neurology: No myoclonus, tremors, or tics. Discharge Plan Discharge Items Patient Disposition: Transfer to LTAC Reason For Visit: ETOH WITHDRAWAL,ELECTROLYTE ABNORMALITY Discharge Diagnosis: 1. Acute alcohol withdrawal. 2. Acute multi-lobar hospital acquired pneumonia. 3. Acute hypoxic respiratory failure, due to acute multi-lobar hospital acquired pneumonia, due to acute alcohol withdrawal. Condition on Discharge: Fair Activity: Resume your previous activity Lifting: Gradually increase as tolerated Bathing: No limitations Exercise/Sports: Gradually increase as tolerated Non-emergency contact: Primary Care Provider Call non-emergency contact if: you have any medication questions Follow-up/Referrals: Rosemarie Lopes CRNP [Primary Care Provider] - Diet: Nothing by Mouth Addtl Attending Provider Instructions: 1. See your PCP MARLENE Hancock, within 5 days of hospital discharge. Pending Studies at Discharge: No Stand-Alone Forms: My [facility] Skilled Items Patient informed of condition?: Yes DNR: No Discharge Level of Care: Other Communicable Disease: No Discharge Prognosis: Stable Lines: Peripheral IV Urinary Catheter: Yes Medications and DC Order Prescriptions: New furosemide 10 mg/mL Solution 40 mg IV BID Qty: 240 0RF acetaminophen 325 mg Tablet 650 mg PO Q4H PRN (Reason: headache,T>100.4F,pain 1-10) Qty: 120 0RF prazosin 1 mg Capsule 1 mg PO Q8 Qty: 90 0RF lorazepam 2 mg/mL Solution 1 mg IV Q6H PRN (Reason: agitation/alcohol withdrawal) Qty: 20 0RF thiamine HCl (vitamin B1) 100 mg Tablet 100 mg PO QAM Qty: 30 0RF clonidine 0.3 mg/24 hr Patch Weekly 1 patch transdermal Q7D Qty: 4 0RF diazepam 5 mg Tablet 10 mg PO QPM Qty: 5 0RF diazepam 5 mg Tablet 10 mg PO Q12 Qty: 10 0RF metoprolol tartrate 25 mg Tablet 25 mg PO BID Qty: 60 0RF chlorhexidine gluconate 0.12 % Mouthwash 15 ml MT TID Qty: 1350 0RF Liquid Multivitamin 9 mg iron/ 15 mL (15 mL) Liquid 15 ml PO QAM Qty: 450 0RF Eliquis 5 mg Tablet 5 mg PO BID Qty: 163 0RF Eliquis 5 mg Tablet 10 mg PO BID Qty: 10 0RF Banatrol TF 5 gram-45 kcal/60 mL Liquid In Packet 60 ml PEG BID Qty: 3600 0RF Continued magnesium oxide 400 mg (241.3 mg magnesium) Tablet 400 mg PO QAM Qty: 30 2RF Rx Instructions: 09/29/24 : PT AND SON UNABLE TO CONFIRM PT TAKES THIS MED. escitalopram oxalate 10 mg Tablet 10 mg PO QAM Qty: 30 5RF Rx Instructions: 09/29/25 : PT BOBO AN "x" ON THE CAP OF THIS RX BOTTLE AND STATED HE HAS NOT BEEN TAKING THIS MED BECAUSE HE DID NOT KNOW HE WAS SUPPOSED TO. aspirin 81 mg Tablet,Delayed Release (Dr/Ec) 81 mg PO DAILY gabapentin 100 mg capsule 100 mg PO HS Rx Instructions: 09/29/24 : BAG OF MEDS ACCOMPANYING PT DOES NOT INCLUDE A BOTTLE OF THIS MED. PT REPORTS HE PUT SOME OF HIS MED BOTTLES IN HIS MEDICNE CABINET AND DOES NOT TAKE THEM SINCE HE DID NOT THINK HE WAS SUPPOSED TO BE TAKING THEM. coenzyme Q10 [Co Q-10] 100 mg Capsule 100 mg PO DAILY potassium chloride 20 mEq Tablet Extended Release 20 meq PO DAILY Rx Instructions: 09/29/24 : PT CONFIRMED TAKING THIS MED. RX BOTTLE INCLUDED IN BAG OF MEDS PT'S SON BROUGHT ALONG. MED NOT NOTED ON PT'S EXTERNAL LIST. albuterol sulfate 90 mcg/actuation Hfa Aerosol Inhaler 2 puff INHALATION QID PRN (Reason: Shortness Of Breath Or Wheezing) lisinopril 20 mg Tablet 20 mg PO DAILY Rx Instructions: 09/29/24 : THIS RX BOTTLE INCLUDED IN BAG OF MEDS SON BROUGHT ALONG. PT CANNOT CONFIRM TAKING THIS MED. THIS MED NOT NOTED ON PT'S EXTERNAL LIST. Discontinued furosemide 40 mg Tablet 40 mg PO QAM Qty: 30 5RF Rx Instructions: 09/29/24 : THIS RX BOTTLE NOT INCLUDED IN BAG OF PT'S MEDS SON BROUGHT ALONG. MED NOT NOTED ON PT'S EXTERNAL MED LIST. PT STATED HE DOES TAKE A " WATER PILL" BUT UNABLE TO STATE THE NAME OF SAME. THE BAG OF PT'S MEDS SON BROUGHT ALONG INCLUDES A BOTTLE OF SPIRONOLACTONE 25MG. metoprolol succinate 50 mg Tablet Extended Release 24 Hr 50 mg PO QAM Qty: 30 5RF Rx Instructions: 09/29/24 PT CONFIRMED TAKING THIS MED. Entresto 49-51 mg Tablet 1 tab PO BID Qty: 60 5RF Rx Instructions: 09/29/24 : THIS RX BOTTLE WAS NOT INCLUDED IN THE BAG OF MEDS PT'S SON BROUGHT ALONG. WHEN QUESTIONED, PT DENIED KNOWLEDGE OF THIS DRUG. MED NOT ON PT'S EXTERNAL MED LIST. spironolactone 25 mg Tablet 25 mg PO DAILY Rx Instructions: 09/29/24 : THIS RX BOTTLE INCLUDED IN MEDS ACCOMPANYING PT TO ED. PT CANNOT CONFIRM TAKING THIS MED. THIS MED NOT NOTED ON PT'S EXTERNAL MED LIST. Discharge Orders: Discharge Order (Routine); Ordered 10/11/24 Ordered By: Raf Boyd Discharge Order- CHF (Routine); Ordered 10/11/24 Ordered By: Raf Boyd Admission Data Admit Date/Time: 09/29/24 19:52 Attending Provider: Raf Boyd Admit Provider: Beth Salazar Primary Care Provider: Rosemarie Lopes. Other Providers: Beth Salazar; Edgardo Millard; Luis A Chao Other Interventions: Discharge Summary Assessment (RN) Last Done: 10/11/24 11:50 Hospital Stay Data Consultations 09/29/24 18:44 ED Decision to Admit Stat 09/30/24 17:19 Consult Commercial Litigation Associate Routine 10/06/24 14:02 Consult Pulmonology Stat 10/11/24 07:48 Burn CD for patient Stat Diagnostic Imagining Performed 09/29/24 16:44 CT abd pelvis wo con Stat 09/29/24 21:14 US liver Routine 09/30/24 13:22 US venous doppler LE BI Routine 10/02/24 09:33 US venous doppler UE BI Routine 10/06/24 15:07 CT angio chest PE protocol Routine CT head/brain wo con Routine 10/06/24 17:50 US point of care ultrasound Routine Pending Results Patient Have Any Pending Studies at Discharge: No Discharge Instructions Given to Patient (Per Discharging Provider) 1. See your PCP MARLENE Hancock, within 5 days of hospital discharge. Total Time Total Time Spent Total Time Spent (In Minutes): 35 minutes. Of this time period, 19 minutes were spent in coordinating patient discharge. Coding Level of Care Code 19071 INP/OBS DISCH >30 MIN Diagnoses Acute hypoxic respiratory failure J96.01 HAP (hospital-acquired pneumonia) J18.9; Y95
[2024-10-14] MEDS ORDERED: APIXABAN 5 MG TABLET PO SCH (09:00)
== END 2024-10-11 11:53 | DRG 4 ==
LOC: ED 14:46 → SUATTDRO 19:52 → 2E 19:52 → 1E 09-30 11:27

== ENCOUNTER 2024-12-09 22:14 | Inpatient (IN) ==
[2024-12-09 23:31] LABS: Hematocrit (blood only) 27.8 % (42.0-52.0); Hemoglobin 8.6 g/dl (14.0-18.0); Immature Granulocytes # (auto) 0.03 K/uL (0.01-0.20); Immature Granulocytes % (auto) 0.3 %; Mean Corpuscular Hemoglobin 29.2 pg (25.0-34.0); Mean Corpuscular Volume 94.2 fL (80.0-100.0); Platelet Count 419 K/uL (130-400); RDW Standard Deviation 53.5 fL (36.4-46.3); Red Blood Count 2.95 M/uL (4.70-6.10); White Blood Count 11.43 K/ul (4.8-10.8)
[2024-12-09 23:50] LABS: Alanine Aminotransferase 22.0 U/L (7-52); Albumin Globulin Ratio 0.7 (0.9-2); Alkaline Phosphatase 117.0 U/L (34-104); Anion Gap 11.0 (3-11); Bilirubin,Total 0.4 mg/dl (0.2-1.0); Blood Urea Nitrogen 32.0 mg/dl (6-23); Calcium 9.7 mg/dl (8.6-10.3); Carbon Dioxide 24.0 mmol/L (21-32); Chloride 102.0 mmol/L (98-107); Creatinine Clr Calc Pharmacy 61.4 ml/min; Globulin 5.1 gm/dl (2.5-4.0); Glucose 94.0 mg/dl (70-99(Fasting)); Magnesium 2.1 mg/dl (1.7-2.4); Potassium 4.4 mmol/L (3.5-5.1); Sodium 137.0 mmol/L (136-145); Total Protein 8.7 gm/dl (6.0-8.3)
--- NOTE | 2024-12-09 23:51 | Emergency Department Note ---
Impression & Plan Acute dehydration, Chronic confusion [facility] Provider Note NAME: RUDOLPH GOOD AGE: 69 SEX: Male INFORMANT: Patient ED PROVIDER(S): Iesha Cannon DO CHIEF COMPLAINT: Agitated behavior PLAN: Disposition: admit to [facility] MEDICAL DECISION MAKING: This is a 69-year-old male patient with an extensive past medical history including a recent admission for alcohol withdrawal and delirium. Patient went on to have a hemorrhagic stroke at the end of October. He was recently admitted to [facility] for a GI bleed. Over the recent past, the patient moved in with his daughter who had hoped to care for him but she feels that she cannot safely care for him in her home as he has frequent falls and is not cooperating with her. The patient tells me that the reason he is here is because his daughter is "a looney tune" and they had a fight and she dropped him off at the emergency department. on physical exam, the patient appears quite dehydrated and is tachycardic. Laboratory studies reveal a white blood cell count of 11.4. Hemoglobin is down to 8.6. BUN is 32 and creatinine is 1.1. BUN/creatinine ratio was 29. Magnesium is normal at 2.1. Urinalysis shows no sign of infection. Chest x- ray was unremarkable. The nursing staff did speak with the patient's daughter on the phone who described that she is having difficulty caring for her father at home. I did review an extensive note which was a summary from his PCP from earlier today while in he was seen in the office. It seems the patient has a history of alcohol withdrawal associated delirium and metabolic encephalopathy. [facility]. Care/management discussed with: restaurant floor manager and [facility] Triage Nursing notes: reviewed and agree with them. Vital Signs: reviewed and remarkable for tachycardia Additional History obtained from: nursing staff spoke with the patient's daughter on the phone as she dropped him off at triage and left the department. Chronic Medical/Social Conditions affecting care: Patient was seen by his PCP earlier today who outlined a very detailed note explaining that the patient cannot care for himself and will need gtiff-cps-bdeiy care. Prior/ Outside/ External records reviewed: I reviewed his admission from September 2024 here at [facility] as well as the PCP note from earlier today Differential Diagnosis: metabolic encephalopathy, dehydration, alcohol intoxication, mood disorder, thought disorder, hypoglycemia, electrolyte abnormality Diagnostics, independently interpreted by me: ECG: normal sinus rhythm at a rate of 100 with a first-degree AV block and PACs. There is no ST segment elevation or signs of ischemia. Cardiac Monitoring: Sinus tachycardia at 117 Imaging studies: portable chest x-ray: No acute pulmonary infiltrates or consolidation as per my independent interpretation HPI: 69 year old Male arrives for evaluation of Agitated behavior. patient with an extensive past medical history including a recent admission for alcohol withdrawal and delirium. Patient went on to have a hemorrhagic stroke at the end of October. He was recently admitted to [facility] for a GI bleed. Over the recent past, the patient moved in with his daughter who had hoped to care for him but she feels that she cannot safely care for him in her home as he has frequent falls and is not cooperating with her. The daughter told nursing staff on the phone that she was trying to care for him tonight by giving medications through his G-tube and assisting him and he was arguing with her and she is unable to continue to care for him without help PAST MEDICAL HISTORY: See Below, PAST SURGICAL HISTORY: See Below, SOCIAL HISTORY: patient is not currently drinking alcohol, he is living with his daughter HOME MEDICATIONS: see list ALLERGIES: see list VITALS: See Below PHYSICAL EXAMINATION: HEENT: Head - normocephalic and atraumatic Pupils are equal, round, and reactive to light. Extraocular eye muscles are intact, and sclera are anicteric. Nose - dry nasal mucosa without discharge. Mouth - dry buccal mucosa. Oropharynx is nonerythematous and there is no tonsillar exudate or edema noted. Neck: Supple; no JVD or cervical lymphadenopathy Heart: Tachycardic rate and rhythm. There is a normal S1 and S2 with no murmurs, clicks, or gallops appreciated. Lungs: Clear to auscultation bilaterally with no wheezes, rales, or rhonchi. Abdomen: Soft, completely nontender, nondistended, with good bowel sounds. There are no palpable pulsatile masses or hepatosplenomegaly. There is no guarding, rigidity, or rebound noted. Extremities: The patient has multiple scabbed over lesions about the lower extremities with some mild surrounding erythema. The left leg is worse than the right. Skin: warm and dry with poor turgor and no rashes. Neuro: Patient has significant slurred speech as a result of his previous stroke. He is oriented to person and place. He seems somewhat confused about the events of today in the recent past. Emergency Department course: The patient was evaluated in room B-2. A complete history and physical was performed. Previous electronic medical records were reviewed. Twelve-lead EKG was obtained. An order was placed for continuous cardiac monitoring. The patient was in a sinus tachycardia at a rate of 117. the patient was bolused with IV normal saline. He was finally able to give a urine specimen. I discussed the case with the [facility] Hospitalist and they will evaluate for further inpatient care. 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 Electrolyte abnormality Patella fracture Rhus dermatitis Chronic systolic CHF (congestive heart failure) S/P ICD (internal cardiac defibrillator) procedure Nonischemic cardiomyopathy NSVT (nonsustained ventricular tachycardia) Effusion of elbow joint, left Left inguinal hernia Foot pain, left Benign prostatic hyperplasia with urinary obstruction (Acute) Inhibited sexual excitement (Acute) Male erectile disorder (Acute) Urinary frequency (Acute) Urinary urgency (Acute) Shoulder pain, acute Abdominal pain (Acute) Medical History (Updated 12/10/24 @ 02:00 by Iesha Cannon DO) Tracheostomy, acute management Partial thickness burn of ankle Second degree burn of ankle Alcohol withdrawal delirium Acute systolic heart failure Acute hypoxic respiratory failure Acute airway obstruction Acute alcohol intoxication Methicillin susceptible Staphylococcus aureus infection Abdominal wall mass of suprapubic region Alcohol intoxication Fracture of right tibial plateau (~07/05/24) Acute on chronic systolic heart failure Asthma Mitral regurgitation Surgical History History of mitral valve repair Hx of heart surgery History of back surgery History of ankle surgery Family History Brother Diabetes Mother Cancer Social History Smoking Status: Former smoker Tobacco Type: Cigarettes Age Started Using Tobacco: 43; Age Quit Using Tobacco: 69; packs per day: 0.5; Cigarettes Per Day: 1; Do You Dip or Chew Tobacco: No; Hx Alcohol Use: Yes Alcohol type: hard liquor Hx Substance Use: Yes Last Used Substance: Unknown Last Used Substance Other:: last used at 4pm yesterday Substance Use Type Other:: "I just take 1 hit" "I'll be stoned all day long with one little hit" Preferred Language: Icelandic Communication Ability: Impaired Communication Ability Comment: pt states he can read enough to get by but is not a very good reader Computer Animator Required: No Beliefs That Will Affect Care: None marital status: Legally Current Living Situation: Alone 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 Feels Safe at Home: No Assistive Devices: Crutches and Walker Allergies Allergies Allergy/AdvReac Type Severity Reaction Status Date / Time oxycodone [From Percodan] AdvReac Mild Dizziness Verified 12/09/24 23:47 Home Meds Home Medications Medication Instructions Recorded Confirmed albuterol sulfate 90 mcg/actuation 2 puff inhalation QID PRN 09/29/24 12/09/24 aerosol inhaler Shortness Of Breath Or Wheezing Lactobacillus rhamnosus GG 10 1 cap feeding tube DAILY 12/06/24 12/09/24 billion cell capsule apixaban 5 mg tablet (Eliquis) 5 mg feeding tube BID 12/06/24 12/09/24 aspirin 81 mg capsule 81 mg feeding tube DAILY 12/06/24 12/09/24 atorvastatin 40 mg tablet 40 mg feeding tube DAILY 12/06/24 12/09/24 coenzyme Q10 100 mg capsule (Co 100 mg PO DAILY 12/06/24 12/09/24 Q-10) dicyclomine 10 mg capsule 10 mg feeding tube TID 12/06/24 12/09/24 folic acid 1 mg tablet 1 mg feeding tube DAILY 12/06/24 12/09/24 lactose-reduced food with fiber 0 ea feeding tube QID 12/06/24 12/09/24 0.06 gram-1.5 kcal/mL oral liquid (Jevity 1.5 Madhav) lorazepam 0.5 mg tablet (Ativan) 0.5 mg feeding tube BID PRN Anxiety 12/06/24 12/09/24 olanzapine 15 mg tablet 15 mg feeding tube QPM 12/06/24 12/09/24 sennosides 8.8 mg/5 mL oral syrup 5 ml feeding tube DAILY 12/06/24 12/09/24 (senna) thiamine HCl (vitamin B1) 100 mg 100 mg feeding tube QAM 12/06/24 12/09/24 tablet Previous Rx's Medication Instructions Recorded lansoprazole 30 mg capsule,delayed 30 mg PO BID #180 caps 12/09/24 release metoprolol succinate 50 mg 50 mg PO DAILY #90 tabs 12/09/24 tablet,extended release 24 hr potassium chloride 20 mEq 20 meq PO DAILY #100 tabs 12/09/24 tablet,extended release Results & Data (ED) Vital Signs Vital Signs - 24 hr 12/09/24 22:19 12/09/24 22:33 12/09/24 23:14 Temperature 36.4 C L Temperature Source Temporal Artery Scan Pulse Rate 125 H 117 H Pulse Rate [Apical] Pulse Rhythm [Apical] Respiratory Rate 16 Respiratory Effort / Characteristics Respiratory Depth Respiratory Pattern Blood Pressure 108/72 Blood Pressure [Right Arm] Blood Pressure Mean 84 Blood Pressure Mean [Right Arm] Blood Pressure Position [Right Arm] Pulse Oximetry 99 99 Oxygen Delivery Method Room Air Room Air Sepsis Recent Fever Within 48 Hours No Sepsis New/Unexplained Change in Mental Status No Sepsis Action Taken by Nursing No Action Required 12/09/24 23:57 12/10/24 01:28 Temperature Temperature Source Pulse Rate Pulse Rate [Apical] 100 H 98 H Pulse Rhythm [Apical] Regular Respiratory Rate 18 18 Respiratory Effort / Characteristics Non-Labored Spontaneous Non-Labored Spontaneous Respiratory Depth Normal Normal Respiratory Pattern Regular Regular Blood Pressure Blood Pressure [Right Arm] 106/68 126/69 Blood Pressure Mean Blood Pressure Mean [Right Arm] 80 88 Blood Pressure Position [Right Arm] Semi-fowlers Semi-fowlers Pulse Oximetry 98 98 Oxygen Delivery Method Room Air Room Air Sepsis Recent Fever Within 48 Hours Sepsis New/Unexplained Change in Mental Status Sepsis Action Taken by Nursing Laboratory Data 12/09/24 22:45 12/09/24 22:45 Lab Results 12/09/24 12/10/24 Range/Units 22:45 00:33 WBC 11.43 H (4.8-10.8) K/ul RBC 2.95 L (4.70-6.10) M/uL Hgb 8.6 L (14.0-18.0) g/dl Hct 27.8 L (42.0-52.0) % MCV 94.2 (80.0-100.0) fL MCH 29.2 (25.0-34.0) pg MCHC 30.9 L (32.0-36.0) g/dL RDW Std Deviation 53.5 H (36.4-46.3) fL RDW Coeff of Donna 15.6 H (11.5-14.5) % Plt Count 419 H (130-400) K/uL MPV 10.8 (9.4-12.4) fL Immature Gran % (Auto) 0.3 % Neut % (Auto) 67.7 % Lymph % (Auto) 20.6 % Dixon % (Auto) 9.6 % Eos % (Auto) 1.6 % Baso % (Auto) 0.2 % Neut # (Auto) 7.75 H (1.40-6.50) K/uL Lymph # (Auto) 2.35 (1.20-3.40) K/uL Dixon # (Auto) 1.10 H (0.11-0.59) K/uL Eos # (Auto) 0.18 (0.00-0.50) K/uL Baso # (Auto) 0.02 (0.00-0.20) K/uL Immature Gran # (Auto) 0.03 (0.01-0.20) K/uL Sodium 137 (136-145) mmol/L Potassium 4.4 (3.5-5.1) mmol/L Chloride 102 (98-107) mmol/L Carbon Dioxide 24 (21-32) mmol/L Anion Gap 11 (3-11) BUN 32 H (6-23) mg/dl Creatinine 1.10 (0.6-1.4) mg/dl Est Cr Clr Drug Dosing 61.4 ml/min eGFR 73.12 BUN/Creatinine Ratio 29.1 H (10-20) Glucose 94 (70-99(Fasting)) mg/dl Calcium 9.7 (8.6-10.3) mg/dl Magnesium 2.1 (1.7-2.4) mg/dl Total Bilirubin 0.4 (0.2-1.0) mg/dl AST 22 (13-39) U/L ALT 22 (7-52) U/L Alkaline Phosphatase 117 H (34-104) U/L Total Protein 8.7 H (6.0-8.3) gm/dl Albumin 3.6 (3.4-5.0) gm/dl Globulin 5.1 H (2.5-4.0) gm/dl Albumin/Globulin Ratio 0.7 L (0.9-2) TSH 1.394 (0.300-4.500) uIu/ml Urine Color Yellow Urine Appearance Clear (Clear) Urine pH 7.0 (4.5-7.5) Ur Specific [place] 1.020 (1.000-1.030) Urine Protein Trace H (Negative) Urine Glucose (UA) Negative (Negative) Urine Ketones Negative (Negative) Urine Blood Negative (Negative) Urine Nitrite Negative (Negative) Urine Bilirubin Negative (Negative) Urine Urobilinogen Negative (Negative) Ur Leukocyte Esterase Negative (Negative) Urine WBC (Auto) 0-5 (0-5) /hpf Urine RBC (Auto) 0-2 (0-2) /hpf U Hyaline Cast (Auto) 0-2 (0-2) /lpf U Epithel Cells (Auto) 0-2 (0-2) /hpf Urine Bacteria (Auto) None Seen (None Seen) Urine Comment Administered Medications Discontinued Medications Sodium Chloride (Nss) 500 mls @ 999 mls/hr IV .Q31M ONE Stop: 12/10/24 00:24 Last Infusion: 12/10/24 00:28 Dose: Infused Documented By: Admin: 12/09/24 23:57 Dose: 999 mls/hr Documented By: SHELLY Imaging Data Radiologist's Impression: Chest X-Ray 12/09/24 23:14 Exam(s): XR CXR 1 VIEW EXAM: XR Chest, 1 View CLINICAL HISTORY: Reason for exam: weakness. TECHNIQUE: Frontal view of the chest. COMPARISON: 10/10/2024. FINDINGS: Lungs: No consolidation. Pleural space: No pleural effusion is seen. No pneumothorax. Heart: The patient is status post midline sternotomy. Pacemaker is again noted. The heart is normal in size.. Mediastinum: Unremarkable. Bones/joints: There are degenerative changes in the spine.. IMPRESSION: No acute pulmonary disease.. Electronically signed by: Ritchie Hines MD 12/10/24 00:16 AM Discharge Plan Visit Data Chief Complaint: Illness Stated Complaint: REFUSING TO TAKE MEDS, HIGHLY COMBATIVE ED Provider: Iesha Cannon Discharge Problem: Acute dehydration, Chronic confusion Condition: Serious Forms Stand Alone Forms: My [facility] Prescriptions Prescriptions: No Action Eliquis 5 mg tablet 5 mg feeding tube BID aspirin 81 mg capsule 81 mg feeding tube DAILY atorvastatin 40 mg tablet 40 mg feeding tube DAILY sennosides [senna] 8.8 mg/5 mL syrup 5 ml feeding tube DAILY lorazepam [Ativan] 0.5 mg tablet 0.5 mg feeding tube BID PRN (Reason: Anxiety) folic acid 1 mg tablet 1 mg feeding tube DAILY olanzapine 15 mg tablet 15 mg feeding tube QPM Lactobacillus rhamnosus GG 10 billion cell capsule 1 cap feeding tube DAILY dicyclomine 10 mg capsule 10 mg feeding tube TID thiamine HCl (vitamin B1) 100 mg tablet 100 mg feeding tube QAM Jevity 1.5 Madhav 0.06 gram-1.5 kcal/mL liquid 0 ea feeding tube QID Rx Instructions: bolus feeds of Jevity 1.5 via PEG at 355 mL, 4x/day(08:00, 12:00, 15:00, 19:00) with FWF of 90mL before and after each bolus feed + 120 mL TID/day. Provides: Total Volume: 1420 mL Kcals: 2130(30 kcals/kg) Protein: 91g(1.3g/kg) FW: 1079 mL from formula + 90 mL FWF before and after each meal + 360m//day: 2159 mL(30 mL/kg)2. Please continue daily weights and TF intake documentation lansoprazole 30 mg capsule,delayed release(DR/EC) 30 mg PO BID Qty: 180 3RF potassium chloride 20 mEq tablet extended release 20 meq PO DAILY Qty: 100 3RF metoprolol succinate 50 mg tablet extended release 24 hr 50 mg PO DAILY Qty: 90 3RF albuterol sulfate 90 mcg/actuation Hfa Aerosol Inhaler 2 puff INHALATION QID PRN (Reason: Shortness Of Breath Or Wheezing) coenzyme Q10 [Co Q-10] 100 mg capsule 100 mg PO DAILY Referrals Referrals: Rosemarie Lopes CRNP [Primary Care Provider] -
[2024-12-09] MEDS: SODIUM CHLORIDE 0.9% 500 ML IV ONE (23:57)
[2024-12-10 00:06] LABS: Thyroid Stimulating Hormone 1.394 uIu/ml (0.300-4.500)
--- NOTE | 2024-12-10 00:17 | XRay Report ---
Exam(s): XR CXR 1 VIEW EXAM: XR Chest, 1 View CLINICAL HISTORY: Reason for exam: weakness. TECHNIQUE: Frontal view of the chest. COMPARISON: 10/10/2024. FINDINGS: Lungs: No consolidation. Pleural space: No pleural effusion is seen. No pneumothorax. Heart: The patient is status post midline sternotomy. Pacemaker is again noted. The heart is normal in size.. Mediastinum: Unremarkable. Bones/joints: There are degenerative changes in the spine.. IMPRESSION: No acute pulmonary disease.. Electronically signed by: Ritchie Hines MD 12/10/24 00:16 AM
[2024-12-10 00:52] LABS: Appearance Urine Clear (Clear); Glucose Urine UA Negative (Negative)
[2024-12-10 00:56] LABS: Bacteria Urine Automated None Seen (None Seen); Cast Urine Automated 0-2 /lpf (0-2); Epithelial Cell Urine Auto 0-2 /hpf (0-2); RBC Urine Automated 0-2 /hpf (0-2); WBC Urine Automated 0-5 /hpf (0-5)
--- NOTE | 2024-12-10 02:19 | History & Physical Report ---
Date of Service December 10, 2024 Assessment & Plan (1) CVA (cerebral vascular accident): (2) S/P ICD (internal cardiac defibrillator) procedure: (3) Nonischemic cardiomyopathy: (4) DVT (deep venous thrombosis): Plan The patient is a 69-year-old male with a past medical history including hyperlipidemia, depression with anxiety, current smoker, DVT, HAP, history of alcohol use disorder and intoxication, chronic systolic CHF, status post ICD, nonischemic cardiomyopathy, NSVT, atrial flutter, CAD, MRSA, mitral valve repair BPH with LUTS who was most recently admitted to [facility] from 09/29- 10/11/2024, where he was initially admitted to the PCU, and then transferred to the ICU for alcohol withdrawal, and acute agitated delirium, acute hypoxic respiratory failure and HAP. He was then discharged to an LTAC. The patient was transferred from LTAC to [facility] on 11/04/24 with complaint of coffee-ground emesis which had started earlier in the morning. CT scan in the ED showed findings concerning for a subacute infarct versus hemorrhagic conversion in the right frontal lobe. Neurosurgery was consulted and was advised to admit under hospitalist service they are. The patient was reported to have had a fall on 10/18/2024. He previously had an MRI on 10/30/2024, which revealed a right MCA CVA. On 11/06/2024, neurology recommended holding Eliquis for 7 to 10 days, and that his follow-up CT of the head should be completed prior to restarting Eliquis, and then get a repeat scan 48 hours after restarting. He underwent an EGD on 11/14/2024 which showed normal esophagus, stomach, duodenum and second portion of duodenum. An endoscopically removal PEG placement was successfully completed. Upon discharge there, the patient has been living with his daughter. The patient was brought to the emergency department at [facility] today, due to his daughter's concerns that she could no longer care for him at home. Acute/subacute CVA- CT scan added to the ED workup notes an ill-defined hypodense area noted involving the right frontal parietal lobe cortex, subcortical and periventricular white matter. This is the same area that is noted on report from outside MRI 10/31 evolving right MCA CVA, and CT scan 11/06/2024 noting hemorrhagic conversion of right MCA stroke. Will order an MRI of brain in the a.m.. He has had an MRI brain with the presence of his current ICD. Will consult cardiology before MRI is performed. The patient denies any new physical limitations. There is question of acute on chronic confusion that has vacillated. Holding Eliquis due to history of previous hemorrhagic conversion of right MCA CVA. All medications via PEG tube- Continue aspirin 81 mg daily LR at 80 mL/h x 1 L Will consult neurology History of alcohol abuse/alcohol withdrawal delirium- Reportedly has not had any alcoholic drink for several months Continue thiamine, folic acid, olanzapine Status post mitral valve repair/history of NSTEMI/chronic systolic CHF with ejection fraction of 30%/question of atrial flutter seen at [facility]- Change metoprolol succinate to metoprolol to tartrate to be able to go through the PEG tube Continue aspirin Holding Eliquis, with patient's on dependable history, unsure if he has been taking it The patient will be admitted to telemetry for serial cardiac enzymes, serial EKG's, cardiac rhythm monitoring and a 2-D echocardiogram with Dopplers. Hyperlipidemia- Continue atorvastatin Disposition: His daughter whom he has been living with recently, reports that she is unable to take care of him anymore at home. Will ultimately need PT/OT assessment, and may need skilled nursing placement. History of Present Illness Chief Complaint: The patient is brought to the emergency department by his daughter, who he has recently moved in with, and she reports that she has become unable to take care of him at home, due to issues with acute on chronic confusion, and history of significant alcohol use, alcohol withdrawal and delirium. Primary Care Provider: MARLENE Stanton The patient is a 69-year-old male with a past medical history including hyperlipidemia, depression with anxiety, current smoker, DVT, HAP, history of alcohol use disorder and intoxication, chronic systolic CHF, status post ICD, nonischemic cardiomyopathy, NSVT, atrial flutter, CAD, MRSA, mitral valve repair BPH with LUTS who was most recently admitted to [facility] from 09/29- 10/11/2024, where he was initially admitted to the PCU, and then transferred to the ICU for alcohol withdrawal, and acute agitated delirium, acute hypoxic respiratory failure and HAP. He was then discharged to an LTAC. The patient was transferred from LTAC to [facility] on 11/04/24 with complaint of coffee-ground emesis which had started earlier in the morning. CT scan in the ED showed findings concerning for a subacute infarct versus hemorrhagic conversion in the right frontal lobe. Neurosurgery was consulted and was advised to admit under hospitalist service they are. The patient was reported to have had a fall on 10/18/2024. He previously had an MRI on 10/30/2024, which revealed a right MCA CVA. On 11/06/2024, neurology recommended holding Eliquis for 7 to 10 days, and that his follow-up CT of the head should be completed prior to restarting Eliquis, and then get a repeat scan 48 hours after restarting. He underwent an EGD on 11/14/2024 which showed normal esophagus, stomach, duodenum and second portion of duodenum. An endoscopically removal PEG placement was successfully completed. Upon discharge there, the patient has been living with his daughter. The patient was brought to the emergency department at [facility] today, due to his daughter's concerns that she could no longer care for him at home. Allergies Allergy/AdvReac Type Severity Reaction Status Date / Time oxycodone [From Percodan] AdvReac Mild Dizziness Verified 12/09/24 23:47 Home Medications Medication Instructions Recorded Confirmed Type albuterol sulfate 90 mcg/actuation 2 puff inhalation QID PRN 09/29/24 12/09/24 History aerosol inhaler Shortness Of Breath Or Wheezing Lactobacillus rhamnosus GG 10 1 cap feeding tube DAILY 12/06/24 12/09/24 History billion cell capsule apixaban 5 mg tablet (Eliquis) 5 mg feeding tube BID 12/06/24 12/09/24 History aspirin 81 mg capsule 81 mg feeding tube DAILY 12/06/24 12/09/24 History atorvastatin 40 mg tablet 40 mg feeding tube DAILY 12/06/24 12/09/24 History coenzyme Q10 100 mg capsule (Co 100 mg PO DAILY 12/06/24 12/09/24 History Q-10) dicyclomine 10 mg capsule 10 mg feeding tube TID 12/06/24 12/09/24 History folic acid 1 mg tablet 1 mg feeding tube DAILY 12/06/24 12/09/24 History lactose-reduced food with fiber 0 ea feeding tube QID 12/06/24 12/09/24 History 0.06 gram-1.5 kcal/mL oral liquid (Jevity 1.5 Madhav) lorazepam 0.5 mg tablet (Ativan) 0.5 mg feeding tube BID PRN Anxiety 12/06/24 12/09/24 History olanzapine 15 mg tablet 15 mg feeding tube QPM 12/06/24 12/09/24 History sennosides 8.8 mg/5 mL oral syrup 5 ml feeding tube DAILY 12/06/24 12/09/24 History (senna) thiamine HCl (vitamin B1) 100 mg 100 mg feeding tube QAM 12/06/24 12/09/24 History tablet lansoprazole 30 mg capsule,delayed 30 mg PO BID #180 caps 12/09/24 12/09/24 Rx release metoprolol succinate 50 mg 50 mg PO DAILY #90 tabs 12/09/24 12/09/24 Rx tablet,extended release 24 hr potassium chloride 20 mEq 20 meq PO DAILY #100 tabs 12/09/24 12/09/24 Rx tablet,extended release Past Med/Surg History Problem List (Updated 12/10/24 @ 04:32 by Harlan Stock MD) CVA (cerebral vascular accident) Chronic confusion (Acute) Acute dehydration (Acute) Hyperlipidemia Depression with anxiety Current smoker DVT (deep venous thrombosis) HAP (hospital-acquired pneumonia) Pleural effusion on left Prolonged Q-T interval on ECG Nausea & vomiting (Acute) Hypomagnesemia (Acute) Dehydration (Acute) Hypokalemia (Acute) Acute alcohol intoxication delirium with moderate or severe use disorder Electrolyte abnormality Patella fracture Rhus dermatitis Chronic systolic CHF (congestive heart failure) S/P ICD (internal cardiac defibrillator) procedure Nonischemic cardiomyopathy NSVT (nonsustained ventricular tachycardia) Effusion of elbow joint, left Left inguinal hernia Foot pain, left Benign prostatic hyperplasia with urinary obstruction (Acute) Inhibited sexual excitement (Acute) Male erectile disorder (Acute) Urinary frequency (Acute) Urinary urgency (Acute) Shoulder pain, acute Abdominal pain (Acute) Medical History (Updated 12/10/24 @ 04:32 by Harlan Stock MD) Tracheostomy, acute management Partial thickness burn of ankle Second degree burn of ankle Alcohol withdrawal delirium Acute systolic heart failure Acute hypoxic respiratory failure Acute airway obstruction Acute alcohol intoxication Methicillin susceptible Staphylococcus aureus infection Abdominal wall mass of suprapubic region Alcohol intoxication Fracture of right tibial plateau (~07/05/24) Acute on chronic systolic heart failure Asthma Mitral regurgitation Surgical History History of mitral valve repair Hx of heart surgery History of back surgery History of ankle surgery Family History Brother Diabetes Mother Cancer Social History Smoking Status: Former smoker Tobacco Type: Cigarettes Age Started Using Tobacco: 43; Age Quit Using Tobacco: 69; packs per day: 0.5; Cigarettes Per Day: 1; Do You Dip or Chew Tobacco: No; Hx Alcohol Use: No Hx Substance Use: No Preferred Language: Montenegrin Communication Ability: Effective Communication Ability Comment: pt states he can read enough to get by but is not a very good reader Pit Boss Required: No Beliefs That Will Affect Care: None marital status: Legally Current Living Situation: Family Current Living Situation Comment: Daughter 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 The review of systems is otherwise negative other than for that already noted above, and at least 10 systems have been reviewed. Of note, the patient was acting normally with me, however, ED staff reported that he was intermittently confused and mildly agitated. Physical Exam Physical Exam: The patient is awake, alert and oriented 3, cachectic appearing and disheveled, lying in bed and in no acute distress. HEENT--PERRL, EOMI, mucous membranes and oropharynx dry. Neck--supple. No JVD. No bruits. Thyroid normal, trachea midline, no adenopathy. Heart--normal S1 and S2. No murmurs, rubs or gallops. Lungs--clear bilaterally, no respiratory distress, no accessory muscle use. Abdomen--normal bowel sounds and soft. Nontender. Nondistended Extremities--No edema. Dermatologic--normal skin turgor, normal color, no abnormal lymph nodes, no rash. Neurologic--cranial nerves II through XII grossly intact. Rheumatologic--normal range of motion. Psychiatric--normal affect. Results & Data Results & Data Vital Signs (Past 12 Hours) Vital Signs Temp Pulse Pulse Resp BP BP Pulse Ox 12/10/24 01:28 98 H 18 126/69 98 12/09/24 23:57 100 H 18 106/68 98 12/09/24 23:14 99 12/09/24 22:33 117 H 12/09/24 22:19 36.4 C L 125 H 16 108/72 99 O2 Del Method 12/10/24 01:28 Room Air 12/09/24 23:57 Room Air 12/09/24 23:14 Room Air 12/09/24 22:33 12/09/24 22:19 Room Air Laboratory Results Laboratory Results WBC 11.43 K/ul (4.8-10.8) H 12/09/24 22:45 RBC 2.95 M/uL (4.70-6.10) L 12/09/24 22:45 Hgb 8.6 g/dl (14.0-18.0) L 12/09/24 22:45 Hct 27.8 % (42.0-52.0) L 12/09/24 22:45 MCV 94.2 fL (80.0-100.0) 12/09/24 22:45 MCH 29.2 pg (25.0-34.0) 12/09/24 22:45 MCHC 30.9 g/dL (32.0-36.0) L 12/09/24 22:45 RDW Std Deviation 53.5 fL (36.4-46.3) H 12/09/24 22:45 RDW Coeff of Donna 15.6 % (11.5-14.5) H 12/09/24 22:45 Plt Count 419 K/uL (130-400) H 12/09/24 22:45 MPV 10.8 fL (9.4-12.4) 12/09/24 22:45 Immature Gran % (Auto) 0.3 % 12/09/24 22:45 Neut % (Auto) 67.7 % 12/09/24 22:45 Lymph % (Auto) 20.6 % 12/09/24 22:45 [place] % (Auto) 9.6 % 12/09/24 22:45 Eos % (Auto) 1.6 % 12/09/24 22:45 Baso % (Auto) 0.2 % 12/09/24 22:45 Neut # (Auto) 7.75 K/uL (1.40-6.50) H 12/09/24 22:45 Lymph # (Auto) 2.35 K/uL (1.20-3.40) 12/09/24 22:45 [place] # (Auto) 1.10 K/uL (0.11-0.59) H 12/09/24 22:45 Eos # (Auto) 0.18 K/uL (0.00-0.50) 12/09/24 22:45 Baso # (Auto) 0.02 K/uL (0.00-0.20) 12/09/24 22:45 Immature Gran # (Auto) 0.03 K/uL (0.01-0.20) 12/09/24 22:45 Sodium 137 mmol/L (136-145) 12/09/24 22:45 Potassium 4.4 mmol/L (3.5-5.1) 12/09/24 22:45 Chloride 102 mmol/L (98-107) 12/09/24 22:45 Carbon Dioxide 24 mmol/L (21-32) 12/09/24 22:45 Anion Gap 11 (3-11) 12/09/24 22:45 BUN 32 mg/dl (6-23) H 12/09/24 22:45 Creatinine 1.10 mg/dl (0.6-1.4) 12/09/24 22:45 Est Cr Clr Drug Dosing 61.4 ml/min 12/09/24 22:45 eGFR 73.12 12/09/24 22:45 BUN/Creatinine Ratio 29.1 (10-20) H 12/09/24 22:45 Glucose 94 mg/dl (70-99(Fasting)) 12/09/24 22:45 Calcium 9.7 mg/dl (8.6-10.3) 12/09/24 22:45 Magnesium 2.1 mg/dl (1.7-2.4) 12/09/24 22:45 Total Bilirubin 0.4 mg/dl (0.2-1.0) 12/09/24 22:45 AST 22 U/L (13-39) 12/09/24 22:45 ALT 22 U/L (7-52) 12/09/24 22:45 Alkaline Phosphatase 117 U/L (34-104) H 12/09/24 22:45 Total Protein 8.7 gm/dl (6.0-8.3) H 12/09/24 22:45 Albumin 3.6 gm/dl (3.4-5.0) 12/09/24 22:45 Globulin 5.1 gm/dl (2.5-4.0) H 12/09/24 22:45 Albumin/Globulin Ratio 0.7 (0.9-2) L 12/09/24 22:45 TSH 1.394 uIu/ml (0.300-4.500) 12/09/24 22:45 Urine Color Yellow 12/10/24 00:33 Urine Appearance Clear (Clear) 12/10/24 00:33 Urine pH 7.0 (4.5-7.5) 12/10/24 00:33 Ur Specific [place] 1.020 (1.000-1.030) 12/10/24 00:33 Urine Protein Trace (Negative) H 12/10/24 00:33 Urine Glucose (UA) Negative (Negative) 12/10/24 00:33 Urine Ketones Negative (Negative) 12/10/24 00:33 Urine Blood Negative (Negative) 12/10/24 00:33 Urine Nitrite Negative (Negative) 12/10/24 00:33 Urine Bilirubin Negative (Negative) 12/10/24 00:33 Urine Urobilinogen Negative (Negative) 12/10/24 00:33 Ur Leukocyte Esterase Negative (Negative) 12/10/24 00:33 Urine WBC (Auto) 0-5 /hpf (0-5) 12/10/24 00:33 Urine RBC (Auto) 0-2 /hpf (0-2) 12/10/24 00:33 U Hyaline Cast (Auto) 0-2 /lpf (0-2) 12/10/24 00:33 U Epithel Cells (Auto) 0-2 /hpf (0-2) 12/10/24 00:33 Urine Bacteria (Auto) None Seen (None Seen) 12/10/24 00:33 Urine Comment 12/10/24 00:33 Impressions Chest X-Ray 12/09/24 23:14 Exam(s): XR CXR 1 VIEW EXAM: XR Chest, 1 View CLINICAL HISTORY: Reason for exam: weakness. TECHNIQUE: Frontal view of the chest. COMPARISON: 10/10/2024. FINDINGS: Lungs: No consolidation. Pleural space: No pleural effusion is seen. No pneumothorax. Heart: The patient is status post midline sternotomy. Pacemaker is again noted. The heart is normal in size.. Mediastinum: Unremarkable. Bones/joints: There are degenerative changes in the spine.. IMPRESSION: No acute pulmonary disease.. Electronically signed by: Ritchie Hines MD 12/10/24 00:[address] 12/10/24 02:05 EXAM: CT head/brain wo con CLINICAL HISTORY: hx of R MCA CVA hemorragic conversion on 11/06/24 TECHNIQUE: Multiple axial images are obtained from the skull base to the vertex without contrast. CT scan was performed according to ALARA (as low as reasonably achievable). 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 FINDINGS: Ill-defined hypodense area is noted involving right fronto-parietal lobe cortex, subcortical and periventricular white matter - acute to subacute infarct -new finding.- MRI correlation is suggested. Mild mass effect in the form of effacement of adjacent sulcal spaces. There is cerebral atrophy. No evidence of space occupying lesion, hemorrhage, midline shift, extra axial collection, or hydrocephalus is noted. Basal cisterns are symmetric and normal in size and configuration. There are scattered periventricular hypodensities as can be seen with chronic microvascular ischemic changes. The mosquera-white matter differentiation is preserved. Visualized paranasal sinuses and mastoid air cells are well aerated. Orbital contents are within normal limits. Bony structures are intact. IMPRESSION: 1. No evidence of acute intracranial abnormality is demonstrated. 2. Chronic microvascular ischemic changes.-stable. 3. Cerebral atrophy.-stable. 4.Ill-defined hypodense area is noted involving right fronto-parietal lobe cortex, subcortical and periventricular white matter - acute to subacute infarct -new finding.- MRI correlation is suggested Electronically signed by Shin Quispe 12-10-2024 02:46 AM Code Status & VTE Plan Code Status Full code VTE Prophylaxis Plan VTE Prophylaxis will be ordered: Yes PG Care Time/CCT Total # of Minutes Spent Total Time Spent with Patient: Total time spent is greater than 50% in coordination of care (as documented) at patient's floor/unit and/or counseling patient: Coding Level of Care Code 98655 INT INP/OBS CARE 3/75MIN Diagnoses CVA (cerebral vascular accident) I63.9 S/P ICD (internal cardiac defibrillator) procedure Z95.810 Nonischemic cardiomyopathy I42.8 DVT (deep venous thrombosis) I82.409
[2024-12-10] MEDS ORDERED: ALBUTEROL HFA 8 GM INHALER INH PRN (02:31)
--- NOTE | 2024-12-10 02:46 | CT Scan Report ---
EXAM: CT head/brain wo con CLINICAL HISTORY: hx of R MCA CVA hemorragic conversion on 11/06/24 TECHNIQUE: Multiple axial images are obtained from the skull base to the vertex without contrast. CT scan was performed according to ALARA (as low as reasonably achievable). 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 FINDINGS: Ill-defined hypodense area is noted involving right fronto-parietal lobe cortex, subcortical and periventricular white matter - acute to subacute infarct -new finding.- MRI correlation is suggested. Mild mass effect in the form of effacement of adjacent sulcal spaces. There is cerebral atrophy. No evidence of space occupying lesion, hemorrhage, midline shift, extra axial collection, or hydrocephalus is noted. Basal cisterns are symmetric and normal in size and configuration. There are scattered periventricular hypodensities as can be seen with chronic microvascular ischemic changes. The mosquera-white matter differentiation is preserved. Visualized paranasal sinuses and mastoid air cells are well aerated. Orbital contents are within normal limits. Bony structures are intact. IMPRESSION: 1. No evidence of acute intracranial abnormality is demonstrated. 2. Chronic microvascular ischemic changes.-stable. 3. Cerebral atrophy.-stable. 4.Ill-defined hypodense area is noted involving right fronto-parietal lobe cortex, subcortical and periventricular white matter - acute to subacute infarct -new finding.- MRI correlation is suggested Electronically signed by Shin Quispe 12-10-2024 02:46 AM
[2024-12-10] MEDS: LACTATED RINGER'S 1,000 ML IV SCH (03:19)
[2024-12-10] MEDS: METOPROLOL TARTRATE 25 MG TAB PEG SCH (08:12)
[2024-12-10] MEDS: ASPIRIN 81 MG CHEW PEG SCH (08:12)
[2024-12-10] MEDS: ATORVASTATIN 40 MG TAB PEG SCH (08:12)
[2024-12-10] MEDS: SENNOSIDES 8.8 MG/5 ML UDC PEG SCH (08:12)
[2024-12-10] MEDS: FOLIC ACID 1 MG TAB PEG SCH (08:13)
[2024-12-10] MEDS: LACTOBACILLUS ACIDOPHILUS 1 GM PACK PEG SCH (08:13)
[2024-12-10] MEDS: DICYCLOMINE HCL 10 MG CAP PEG SCH (08:13)
[2024-12-10] MEDS: TUBE FEEDING WATER FLUSH GT SCH ×3 (08:32→22:13)
[2024-12-10] MEDS: FIBERSOURCE HN 1.2 CAL 1000 ML BAG GT SCH (08:32)
[2024-12-10] MEDS: THIAMINE HCL 200 MG in SODIUM CHLORIDE 0.9% 50 ML IV SCH (08:47)
[2024-12-10] MEDS ORDERED: THIAMINE HCL 100 MG TAB PEG SCH (09:00)
--- NOTE | 2024-12-10 09:07 | Neurology Consultation ---
Date of Consultation December 10, 2024 Assessment & Plan (1) Abnormal CT of brain: History of Present Illness Attending Physician: Natalia Nice DO History of Present Illness S: pt this morning without new focal deficit. pt had known rt MCA stroke in october 2024. CT head appears to be the same lesion. pending mri. ED visit note: This is a 69-year-old male patient with an extensive past medical history including a recent admission for alcohol withdrawal and delirium. Patient went on to have a hemorrhagic stroke at the end of October. He was recently admitted to [facility] for a GI bleed. Over the recent past, the patient moved in with his daughter who had hoped to care for him but she feels that she cannot safely care for him in her home as he has frequent falls and is not cooperating with her. The patient tells me that the reason he is here is because his daughter is "a looney tune" and they had a fight and she dropped him off at the emergency department. on physical exam, the patient appears quite dehydrated and is tachycardic. Laboratory studies reveal a white blood cell count of 11.4. Hemoglobin is down to 8.6. BUN is 32 and creatinine is 1.1. BUN/creatinine ratio was 29. Magnesium is normal at 2.1. Urinalysis shows no sign of infection. Chest x- ray was unremarkable. The nursing staff did speak with the patient's daughter on the phone who described that she is having difficulty caring for her father at home. I did review an extensive note which was a summary from his PCP from earlier today while in he was seen in the office. It seems the patient has a history of alcohol withdrawal associated delirium and metabolic encephalopathy. I discussed the case with the [facility] Hospitalist and they will evaluate for further management. Allergies Allergy/AdvReac Type Severity Reaction Status Date / Time oxycodone [From Percodan] AdvReac Mild Dizziness Verified 12/09/24 23:47 Home Medications Medication Instructions Recorded Confirmed Type albuterol sulfate 90 mcg/actuation 2 puff inhalation QID PRN 09/29/24 12/09/24 History aerosol inhaler Shortness Of Breath Or Wheezing Lactobacillus rhamnosus GG 10 1 cap feeding tube DAILY 12/06/24 12/09/24 History billion cell capsule apixaban 5 mg tablet (Eliquis) 5 mg feeding tube BID 12/06/24 12/09/24 History aspirin 81 mg capsule 81 mg feeding tube DAILY 12/06/24 12/09/24 History atorvastatin 40 mg tablet 40 mg feeding tube DAILY 12/06/24 12/09/24 History coenzyme Q10 100 mg capsule (Co 100 mg PO DAILY 12/06/24 12/09/24 History Q-10) dicyclomine 10 mg capsule 10 mg feeding tube TID 12/06/24 12/09/24 History folic acid 1 mg tablet 1 mg feeding tube DAILY 12/06/24 12/09/24 History lactose-reduced food with fiber 0 ea feeding tube QID 12/06/24 12/09/24 History 0.06 gram-1.5 kcal/mL oral liquid (Jevity 1.5 Madhav) lorazepam 0.5 mg tablet (Ativan) 0.5 mg feeding tube BID PRN Anxiety 12/06/24 12/09/24 History olanzapine 15 mg tablet 15 mg feeding tube QPM 12/06/24 12/09/24 History sennosides 8.8 mg/5 mL oral syrup 5 ml feeding tube DAILY 12/06/24 12/09/24 History (senna) thiamine HCl (vitamin B1) 100 mg 100 mg feeding tube QAM 12/06/24 12/09/24 History tablet lansoprazole 30 mg capsule,delayed 30 mg PO BID #180 caps 12/09/24 12/09/24 Rx release metoprolol succinate 50 mg 50 mg PO DAILY #90 tabs 12/09/24 12/09/24 Rx tablet,extended release 24 hr potassium chloride 20 mEq 20 meq PO DAILY #100 tabs 12/09/24 12/09/24 Rx tablet,extended release Patient History Medical History (Updated 12/10/24 @ 09:09 by Gabino Stahl MD) Tracheostomy, acute management Partial thickness burn of ankle Second degree burn of ankle Alcohol withdrawal delirium Acute systolic heart failure Acute hypoxic respiratory failure Acute airway obstruction Acute alcohol intoxication Methicillin susceptible Staphylococcus aureus infection Abdominal wall mass of suprapubic region Alcohol intoxication Fracture of right tibial plateau (~07/05/24) Acute on chronic systolic heart failure Asthma Mitral regurgitation Surgical History History of mitral valve repair Hx of heart surgery History of back surgery History of ankle surgery Family History Brother Diabetes Mother Cancer Social History Smoking Status: Former smoker Tobacco Type: Cigarettes Age Started Using Tobacco: 43; Age Quit Using Tobacco: 69; packs per day: 0.5; Cigarettes Per Day: 1; Do You Dip or Chew Tobacco: No; Hx Alcohol Use: No Hx Substance Use: No Preferred Language: Irish Communication Ability: Effective Communication Ability Comment: pt states he can read enough to get by but is not a very good reader Data Center Architect Required: No Beliefs That Will Affect Care: None marital status: Legally Current Living Situation: Family Current Living Situation Comment: Daughter 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 midline T/U/P, grossly full ROM neck Motor: No abnormal movements, normal tone, 5/5 t/o bilaterally Coord: intact grossly upper limbs. Impression: 69 yo male with known large rt MCA stroke in October 2024, CT head finding appears to be the same lesion. Clinically no new deficits. Recommendations: pt was on ASA and Eliquis (for A. flutter) after discharge from last month hospital stay. There is no benefit of taking both ASA and eliquis. continue just eliquis. stop ASA. If mri brain is without acute new lesion, nothing more to add from neurology. continue supportive care. Chart reviewed I have spent more than 50% educating patient about potential diagnosis and neurological evaluation and coordinating care with patient's treatment team. Total time spent (including chart review and coordination of care): 45 min (this includes chart review). Results & Data Vital Signs (Past 12 Hours) Vital Signs Temp Pulse Pulse Resp BP BP Pulse Ox 12/10/24 08:36 36.4 C L 100 H 18 126/64 93 12/10/24 03:24 36.4 C L 93 H 18 146/82 H 99 12/10/24 03:04 12/10/24 02:27 105 H 12/10/24 01:28 98 H 18 126/69 98 12/09/24 23:57 100 H 18 106/68 98 12/09/24 23:14 99 12/09/24 22:33 117 H 12/09/24 22:19 36.4 C L 125 H 16 108/72 99 O2 Del Method 12/10/24 08:36 Room Air 12/10/24 03:24 Room Air 12/10/24 03:04 Room Air 12/10/24 02:27 12/10/24 01:28 Room Air 12/09/24 23:57 Room Air 12/09/24 23:14 Room Air 12/09/24 22:33 12/09/24 22:19 Room Air PG Care Time/CCT Total # of Minutes Spent Total Time Spent with Patient: Total time spent is greater than 50% in coordination of care (as documented) at patient's floor/unit and/or counseling patient: Coding Level of Care Code 54033 IN/OBS CONSULT LVL 3,45M Diagnoses Abnormal CT of brain R90.89
--- NOTE | 2024-12-10 09:55 | Electrocardiogram Report ---
Test Reason : Blood Pressure : */* mmHG Vent. Rate : 100 BPM Atrial Rate : 100 BPM P-R Int : 210 ms QRS Dur : 88 ms QT Int : 344 ms P-R-T Axes : -8 -9 -20 degrees QTcB Int : 443 ms Sinus rhythm with 1st degree A-V block with Premature atrial complexes Inferior infarct , age undetermined Abnormal ECG When compared with ECG of 06-Oct-2024 14:15, Significant changes have occurred Confirmed by Miguel Villalobos ([id number]) on 12/10/2024 9:55:34 AM Referred By: REFERRED SELF Confirmed By: Miguel Villalobos
[2024-12-10] MEDS: ONDANSETRON INJ 2 MG/ML 2 ML VIAL IV PRN (12:02)
[2024-12-10 12:37] LABS: Appearance Urine Clear (Clear); Glucose Urine UA Negative (Negative)
[2024-12-10] MEDS: GADOBUTROL 65ML VIAL IV ONE (14:12)
--- NOTE | 2024-12-10 15:13 | Magnetic Resonance Report ---
MRI OF THE BRAIN COMBO CLINICAL HISTORY: History of hemorrhagic stroke. COMPARISON STUDY: Head CTs October 06, 2024 and December 10, 2024 TECHNIQUE: MRI of the brain was performed utilizing various T1 and T2-weighted sequences in the axial , sagittal, and coronal planes. Contrast-enhanced sequences were acquired following the administratio n of 6.7 cc of Gadavist. FINDINGS: There are no foci of restricted diffusion to suggest acute infarct. Note is made of a 5.3 x 3.7 cm focus of signal abnormality within the right frontotemporal region which corresponds to the a bnormality on CT performed earlier today. This represents encephalomalacia. This demonstrates periphe ral hyperintensity on the diffusion-weighted sequence which is hyperintense on the ADC map. Therefore , this represents T2 shine through. There is mild associated gyral enhancement. Ventricular system is unremarkable. Basal cisterns are patent. There are no extra-axial collections. White matter T2 hyper intense foci suggest moderate small vessel disease. There is no intracranial mass. IMPRESSION: 1. No acute intracranial findings. 2. 5.3 x 3.7 cm focus of signal abnormality within the right frontotemporal region which corresponds to the finding on head CT performed earlier today. This is consistent with a subacute to chronic righ t MCA territory infarct. No acute infarct. No acute hemorrhage. 3. No intracranial mass. ACT 112: Negative or not required by law. Electronically signed by: Steven Grewal M.D. 12/10/2024 3:11 PM
--- NOTE | 2024-12-10 16:21 | Hospitalist Progress Note ---
Date of Service December 10, 2024 Assessment & Plan (1) CVA (cerebral vascular accident): (2) S/P ICD (internal cardiac defibrillator) procedure: (3) Nonischemic cardiomyopathy: (4) DVT (deep venous thrombosis): Plan The patient is a 69-year-old male with a past medical history including hyperlipidemia, depression with anxiety, current smoker, DVT, HAP, history of alcohol use disorder and intoxication, chronic systolic CHF, status post ICD, nonischemic cardiomyopathy, NSVT, atrial flutter, CAD, MRSA, mitral valve repair BPH with LUTS who was most recently admitted to [facility] from 09/29- 10/11/2024, where he was initially admitted to the PCU, and then transferred to the ICU for alcohol withdrawal, and acute agitated delirium, acute hypoxic respiratory failure and HAP. He was then discharged to an LTAC. The patient was transferred from LTAC to [facility] on 11/04/24 with complaint of coffee-ground emesis which had started earlier in the morning. CT scan in the ED showed findings concerning for a subacute infarct versus hemorrhagic conversion in the right frontal lobe. Neurosurgery was consulted and was advised to admit under hospitalist service they are. The patient was reported to have had a fall on 10/18/2024. He previously had an MRI on 10/30/2024, which revealed a right MCA CVA. On 11/06/2024, neurology recommended holding Eliquis for 7 to 10 days, and that his follow-up CT of the head should be completed prior to restarting Eliquis, and then get a repeat scan 48 hours after restarting. He underwent an EGD on 11/14/2024 which showed normal esophagus, stomach, duodenum and second portion of duodenum. An endoscopically removal PEG placement was successfully completed. Upon discharge there, the patient has been living with his daughter. The patient was brought to the emergency department at [facility] today, due to his daughter's concerns that she could no longer care for him at home. overall plan abnormal area in the right frontal parietal lobe potentially chronic finding but repeat brain MRI, interrogate ICD device there question of A-fib, and need brain MRI to determine whether the size of infarct is compatible with anticoagulation family no longer able to take care of patient PT and OT evaluation Acute/subacute CVA- CT show ill-defined hypodense area noted involving the right frontal parietal lobe cortex, subcortical and periventricular white matter. This is the same area that is noted on report from outside MRI 10/31 evolving right MCA CVA, and CT scan 11/06/2024 noting hemorrhagic conversion of right MCA stroke. f/u on repeat MRI brain, need to determine the size of infarct may benefit from eliquis given hx of right MCA infarct spoke with cardiology; who requested that hospitalist has [employer] interrogate the ICD The patient denies any new physical limitations. There is question of acute on chronic confusion that has vacillated. All medications via PEG tube- Continue aspirin 81 mg daily LR at 80 mL/h x 1 L History of alcohol abuse/alcohol withdrawal delirium- Reportedly has not had any alcoholic drink for several months Continue thiamine, folic acid, olanzapine Status post mitral valve repair/history of NSTEMI chronic systolic CHF with ejection fraction of 30%/ question of atrial flutter seen at [facility]- Change metoprolol succinate to metoprolol to tartrate to be able to go through the PEG tube Continue aspirin Holding Eliquis, with patient's on dependable history, unsure if he has been taking it The patient will be admitted to telemetry for serial cardiac enzymes, serial EK G's, cardiac rhythm monitoring and a 2-D echocardiogram with Dopplers. Hyperlipidemia- Continue atorvastatin Disposition: PT /OT eval potential snf placement Admission and Anticipated Discharge Date Admission Date: December 10, 2024 Subjective limited historian interrogate ICD and then brain MRI he's reporteldy on dysphagia diet await PT/OT evaluation in the past Physical Exam Physical Exam: VITALS: Reviewed. WEIGHT/BMI reviewed. GEN: Healthy appearing, well-developed, NAD. -Head: NC/AT; -Mouth and throat: MMM. Normal gums, muc brittni, palate,. Good dentition. NECK: Supple, with no masses. CV: RRR, no m/r/g. LUNGS: CTAB, no w/r/c. ABD: Soft, NT/ND, NBS, no masses or organomegaly. + for feeding tube SKIN: Warm, well perfused. No skin rashes or abnormal lesions. MSK: No deformities, Normal gait. EXT: No clubbing, cyanosis, or edema. NEURO: following command Results & Data Results & Data Vital Signs (Past 12 Hours) Vital Signs Temp Pulse Pulse Resp BP Pulse Ox O2 Del Method 12/10/24 15:40 36.5 C 89 16 136/81 98 Room Air 12/10/24 08:36 36.4 C L 100 H 18 126/64 93 Room Air Laboratory Results Laboratory Results - last 72 hr 12/09/24 12/10/24 12/10/24 22:45 00:33 12:00 WBC 11.43 H RBC 2.95 L Hgb 8.6 L Hct 27.8 L MCV 94.2 MCH 29.2 MCHC 30.9 L RDW Std Deviation 53.5 H RDW Coeff of Donna 15.6 H Plt Count 419 H MPV 10.8 Immature Gran % (Auto) 0.3 Neut % (Auto) 67.7 Lymph % (Auto) 20.6 [place] % (Auto) 9.6 Eos % (Auto) 1.6 Baso % (Auto) 0.2 Neut # (Auto) 7.75 H Lymph # (Auto) 2.35 [place] # (Auto) 1.10 H Eos # (Auto) 0.18 Baso # (Auto) 0.02 Immature Gran # (Auto) 0.03 Sodium 137 Potassium 4.4 Chloride 102 Carbon Dioxide 24 Anion Gap 11 BUN 32 H Creatinine 1.10 Est Cr Clr Drug Dosing 61.4 eGFR 73.12 BUN/Creatinine Ratio 29.1 H Glucose 94 Calcium 9.7 Magnesium 2.1 Total Bilirubin 0.4 AST 22 ALT 22 Alkaline Phosphatase 117 H Total Protein 8.7 H Albumin 3.6 Globulin 5.1 H Albumin/Globulin Ratio 0.7 L TSH 1.394 Urine Color Yellow Yellow Urine Appearance Clear Clear Urine pH 7.0 8.5 H Ur Specific [place] 1.020 1.015 Urine Protein Trace H Negative Urine Glucose (UA) Negative Negative Urine Ketones Negative Negative Urine Blood Negative Negative Urine Nitrite Negative Negative Urine Bilirubin Negative Negative Urine Urobilinogen Negative Negative Ur Leukocyte Esterase Negative Negative Urine WBC (Auto) 0-5 Urine RBC (Auto) 0-2 U Hyaline Cast (Auto) 0-2 U Epithel Cells (Auto) 0-2 Urine Bacteria (Auto) None Seen Urine Comment Medications Administered Current Inpatient Medications Albuterol (Albuterol Hfa 8 Gm Inhaler) 2 puffs INH QID PRN PRN Reason: Shortness Of Breath Or Wheezin Stop: 01/09/25 02:30 Aspirin (Aspirin 81 Mg Chew) 81 mg PEG DAILY TOLU Stop: 01/09/25 08:59 Last Admin: 12/10/24 08:12 Dose: 81 mg Atorvastatin Calcium (Atorvastatin 40 Mg Tab) 40 mg PEG DAILY TOLU Stop: 01/09/25 08:59 Last Admin: 12/10/24 08:12 Dose: 40 mg Dicyclomine HCl (Dicyclomine Hcl 10 Mg Cap) 10 mg PEG TID TOLU Stop: 01/09/25 08:59 Last Admin: 12/10/24 14:57 Dose: 10 mg Folic Acid (Folic Acid 1 Mg Tab) 1 mg PEG DAILY TOLU Stop: 01/09/25 08:59 Last Admin: 12/10/24 08:13 Dose: 1 mg Thiamine HCl 200 mg/ Sodium (Chloride) 52 mls @ 210 mls/hr IV QAM TOLU Stop: 01/09/25 08:59 Last Infusion: 12/10/24 09:11 Dose: Infused Lactobacillus Acidophilus (Lactobacillus Acidophilus 1 Gm Pack) 1 packet PEG DAILY TOLU Stop: 01/09/25 08:59 Last Admin: 12/10/24 08:13 Dose: 1 packet Lorazepam (Lorazepam 0.5 Mg Tab) 0.5 mg SL BID PRN PRN Reason: Anxiety Stop: 01/09/25 02:30 Metoprolol Tartrate (Metoprolol Tartrate 25 Mg Tab) 25 mg PEG BID TOLU Stop: 01/09/25 08:59 Last Admin: 12/10/24 08:12 Dose: 25 mg Nutritional Formula (Nutren Liqd 2.0 1,000 Ml Bag) 0 ml PEG .See Protocol TOLU; Protocol Stop: 01/09/25 19:59 Olanzapine (Olanzapine 5 Mg Tablet) 15 mg PO QPM TOLU Stop: 01/09/25 20:59 Ondansetron HCl (Ondansetron Inj 2 Mg/Ml 2 Ml Vial) 4 mg IV Q6H PRN PRN Reason: Nausea Stop: 01/09/25 02:30 Last Admin: 12/10/24 12:02 Dose: 4 mg Sennosides (Sennosides 8.8 Mg/5 Ml Udc) 8.8 mg PEG DAILY TOLU Stop: 01/09/25 08:59 Last Admin: 12/10/24 08:12 Dose: 8.8 mg Sterile Water (Tube Feeding Water Flush) 120 ml GT UD TOLU Stop: 01/09/25 19:59 PG Care Time/CCT Total # of Minutes Spent Total Time Spent with Patient: Total time spent is greater than 50% in coordination of care (as documented) at patient's floor/unit and/or counseling patient: Coding Level of Care Code 05085 SUB INP/OBS CARE 2/35MIN Diagnoses CVA (cerebral vascular accident) I63.9 S/P ICD (internal cardiac defibrillator) procedure Z95.810 Nonischemic cardiomyopathy I42.8 DVT (deep venous thrombosis) I82.409 Time Spent (min) 35
[2024-12-10] MEDS ORDERED: TUBE FEEDING WATER FLUSH GT SCH (20:00)
[2024-12-10] MEDS ORDERED: NUTREN LIQD 2.0 1,000 ML BAG PEG SCH (20:00)
[2024-12-10] MEDS: NUTREN LIQD 2.0 1,000 ML BAG PEG SCH (22:13)
[2024-12-11 07:51] LABS: Hematocrit (blood only) 19.1 % (42.0-52.0); Hemoglobin 5.9 g/dl (14.0-18.0); Mean Corpuscular Hemoglobin 29.2 pg (25.0-34.0); Mean Corpuscular Volume 94.6 fL (80.0-100.0); Platelet Count 306 K/uL (130-400); RDW Standard Deviation 54.6 fL (36.4-46.3); Red Blood Count 2.02 M/uL (4.70-6.10); White Blood Count 10.79 K/ul (4.8-10.8)
[2024-12-11 08:02] LABS: Alanine Aminotransferase 14.0 U/L (7-52); Albumin Globulin Ratio 0.8 (0.9-2); Alkaline Phosphatase 76.0 U/L (34-104); Anion Gap 5.0 (3-11); Bilirubin,Total 0.4 mg/dl (0.2-1.0); Blood Urea Nitrogen 42.0 mg/dl (6-23); Calcium 8.5 mg/dl (8.6-10.3); Carbon Dioxide 24.0 mmol/L (21-32); Chloride 108.0 mmol/L (98-107); Creatinine Clr Calc Pharmacy 71.8 ml/min; Globulin 3.4 gm/dl (2.5-4.0); Glucose 94.0 mg/dl (70-99(Fasting)); Immature Granulocytes # (auto) 0.05 K/uL (0.01-0.20); Immature Granulocytes % (auto) 0.5 %; Magnesium 1.9 mg/dl (1.7-2.4); Polychromasia 1+; Potassium 4.7 mmol/L (3.5-5.1); Sodium 137.0 mmol/L (136-145); Total Protein 6.2 gm/dl (6.0-8.3)
[2024-12-11] MEDS: PANTOprazole 40 MG/10 ML SYR IV SCH (09:38)
[2024-12-11] MEDS: ALUMINUM/MAGNESIUM SUSP 30 ML UDC PEG SCH (09:51)
[2024-12-11] MEDS ORDERED: PANTOPRAZOLE BOLUS/DRIP IV STA (10:20)
[2024-12-11] MEDS ORDERED: SODIUM CHLORIDE 0.9% 100 ML IV PRN (10:21)
[2024-12-11 11:17] LABS: Hematocrit (blood only) 18.6 % (42.0-52.0); Hemoglobin 6.0 g/dl (14.0-18.0); Mean Corpuscular Hemoglobin 30.8 pg (25.0-34.0); Mean Corpuscular Volume 95.4 fL (80.0-100.0); Platelet Count 296 K/uL (130-400); RDW Standard Deviation 54.0 fL (36.4-46.3); Red Blood Count 1.95 M/uL (4.70-6.10); White Blood Count 9.93 K/ul (4.8-10.8)
[2024-12-11] MEDS: PANTOprazole 40 MG in DEXTROSE 5% MINI-B 100 ML IV SCH (11:49)
--- NOTE | 2024-12-11 12:22 | Hospitalist Progress Note ---
Date of Service December 11, 2024 Assessment & Plan (1) CVA (cerebral vascular accident): (2) S/P ICD (internal cardiac defibrillator) procedure: (3) Nonischemic cardiomyopathy: (4) DVT (deep venous thrombosis): Plan The patient is a 69-year-old male with a past medical history including hyperlipidemia, depression with anxiety, current smoker, DVT, HAP, history of alcohol use disorder and intoxication, chronic systolic CHF, status post ICD, nonischemic cardiomyopathy, NSVT, atrial flutter, CAD, MRSA, mitral valve repair BPH with LUTS who was most recently admitted to [facility] from 09/29- 10/11/2024, where he was initially admitted to the PCU, and then transferred to the ICU for alcohol withdrawal, and acute agitated delirium, acute hypoxic respiratory failure and HAP. He was then discharged to an LTAC. The patient was transferred from LTAC to [facility] on 11/04/24 with complaint of coffee-ground emesis which had started earlier in the morning. CT scan in the ED showed findings concerning for a subacute infarct versus hemorrhagic conversion in the right frontal lobe. Neurosurgery was consulted and was advised to admit under hospitalist service they are. The patient was reported to have had a fall on 10/18/2024. He previou sly had an MRI on 10/30/2024, which revealed a right MCA CVA. On 11/06/2024, neurology recommended holding Eliquis for 7 to 10 days, and that his follow-up CT of the head should be completed prior to restarting Eliquis, and then get a repeat scan 48 hours after restarting. He underwent an EGD on 11/14/2024 which showed normal esophagus, stomach, duodenum and second portion of duodenum. An endoscopically removal PEG placement was successfully completed. Upon discharge there, the patient has been living with his daughter. The patient was brought to the emergency department at [facility] today, due to his daughter's concerns that she could no longer care for him at home. 12/10/2024; has brain MRI completed, chronic finding 12/11/2024, drop in h/h from 8.5--> 5.9 giving 2 units of rpRBC, added protonix, maalalox, GI team consulted, neurology noted MRI is chronically, blood loss anemia h/h drop from 8.5-> 5.9 on Dec 11 giving 2 unit of pRBC added protonix, maalx GI team consulted. also found large residual Acute/subacute CVA- CT show ill-defined hypodense area noted involving the right frontal parietal lobe cortex, subcortical and periventricular white matter. This is the same area that is noted on report from outside MRI 10/31 evolving right MCA CVA, and CT scan 11/06/2024 noting hemorrhagic conversion of right MCA stroke. brain MRI completed on 12/10/[address] Stahl neurology; explained this is chronic finding after GI team cleared, he will benefit from anticoagulation History of alcohol abuse/alcohol withdrawal delirium- Reportedly has not had any alcoholic drink for several months Continue thiamine, folic acid, olanzapine Status post mitral valve repair/history of NSTEMI chronic systolic CHF with ejection fraction of 30%/ question of atrial flutter seen at [facility]- Change metoprolol succinate to metoprolol to tartrate to be able to go through the PEG tube Continue aspirin Holding Eliquis, with patient's on dependable history, unsure if he has been taking it The patient will be admitted to telemetry for serial cardiac enzymes, serial EKG's, cardiac rhythm monitoring and a 2-D echocardiogram with Dopplers. Hyperlipidemia- Continue atorvastatin Disposition: PT /OT eval potential long-term placement Admission and Anticipated Discharge Date Admission Date: December 11, 2024 Subjective he was having drop in h/h from 8.6--> 5.9 giving him 2 unit so blood when our nursing administer the PEG tube, noticed large amount of black color residue GI team notified giving him 2 units called daughter, but went to voicemail spoke with neurology about the MRI finding, explained this is a old infarct Physical Exam Physical Exam: VITALS: Reviewed. WEIGHT/BMI reviewed. GEN: chronically ill; pale -Head: NC/AT; -Eyes: PERRL, EOMI. No discharge or redn ess; -Ears: External ears are normal. Normal TMs. -Nose: Normal nares. NECK: Supple, with no masses. CV: RRR, no m/r/g. LUNGS: CTAB, no w/r/c. ABD: soft to touch; + for dark color output from feeding tube SKIN: pale MSK: No deformities, Normal gait. EXT: No clubbing, cyanosis, or edema. NEURO: AAOx2. Results & Data Results & Data Vital Signs (Past 12 Hours) Vital Signs Pulse Resp BP Pulse Ox O2 Del Method 12/11/24 11:30 Room Air 12/11/24 09:50 96/48 L 12/11/24 08:10 120/80 12/11/24 07:25 Room Air 12/11/24 07:00 105 H 14 91/55 L 95 Room Air Laboratory Results Laboratory Results - last 72 hr 12/09/24 12/10/24 12/10/24 22:45 00:33 12:00 WBC 11.43 H RBC 2.95 L Hgb 8.6 L Hct 27.8 L MCV 94.2 MCH 29.2 MCHC 30.9 L RDW Std Deviation 53.5 H RDW Coeff of Donna 15.6 H Plt Count 419 H MPV 10.8 Immature Gran % (Auto) 0.3 Neut % (Auto) 67.7 Lymph % (Auto) 20.6 [place] % (Auto) 9.6 Eos % (Auto) 1.6 Baso % (Auto) 0.2 Neut # (Auto) 7.75 H Lymph # (Auto) 2.35 [place] # (Auto) 1.10 H Eos # (Auto) 0.18 Baso # (Auto) 0.02 Immature Gran # (Auto) 0.03 Polychromasia Sodium 137 Potassium 4.4 Chloride 102 Carbon Dioxide 24 Anion Gap 11 BUN 32 H Creatinine 1.10 Est Cr Clr Drug Dosing 61.4 eGFR 73.12 BUN/Creatinine Ratio 29.1 H Glucose 94 Calcium 9.7 Magnesium 2.1 Total Bilirubin 0.4 AST 22 ALT 22 Alkaline Phosphatase 117 H Troponin I High Sens Total Protein 8.7 H Albumin 3.6 Globulin 5.1 H Albumin/Globulin Ratio 0.7 L TSH 1.394 Urine Color Yellow Yellow Urine Appearance Clear Clear Urine pH 7.0 8.5 H Ur Specific [place] 1.020 1.015 Urine Protein Trace H Negative Urine Glucose (UA) Negative Negative Urine Ketones Negative Negative Urine Blood Negative Negative Urine Nitrite Negative Negative Urine Bilirubin Negative Negative Urine Urobilinogen Negative Negative Ur Leukocyte Esterase Negative Negative Urine WBC (Auto) 0-5 Urine RBC (Auto) 0-2 U Hyaline Cast (Auto) 0-2 U Epithel Cells (Auto) 0-2 Urine Bacteria (Auto) None Seen Urine Comment Gastric Fluid pH Gastric Occult Blood Blood Type Antibody Screen Crossmatch 12/11/24 12/11/24 12/11/24 07:01 10:30 10:49 WBC 10.79 9.93 RBC 2.02 L 1.95 L Hgb 5.9 L* 6.0 L* Hct 19.1 L* 18.6 L* MCV 94.6 95.4 MCH 29.2 30.8 MCHC 30.9 L 32.3 RDW Std Deviation 54.6 H 54.0 H RDW Coeff of Donna 15.6 H 15.6 H Plt Count 306 296 MPV 11.0 11.1 Immature Gran % (Auto) 0.5 Neut % (Auto) 77.5 Lymph % (Auto) 14.1 [place] % (Auto) 6.5 Eos % (Auto) 1.3 Baso % (Auto) 0.1 Neut # (Auto) 8.37 H Lymph # (Auto) 1.52 [place] # (Auto) 0.70 H Eos # (Auto) 0.14 Baso # (Auto) 0.01 Immature Gran # (Auto) 0.05 Polychromasia 1+ Sodium 137 Potassium 4.7 Chloride 108 H Carbon Dioxide 24 Anion Gap 5 BUN 42 H Creatinine 0.94 Est Cr Clr Drug Dosing 71.8 eGFR 88.30 BUN/Creatinine Ratio 44.7 H Glucose 94 Calcium 8.5 L Magnesium 1.9 Total Bilirubin 0.4 AST 15 ALT 14 Alkaline Phosphatase 76 Troponin I High Sens 7.2 Total Protein 6.2 D Albumin 2.8 L Globulin 3.4 Albumin/Globulin Ratio 0.8 L TSH Urine Color Urine Appearance Urine pH Ur Specific [place] Urine Protein Urine Glucose (UA) Urine Ketones Urine Blood Urine Nitrite Urine Bilirubin Urine Urobilinogen Ur Leukocyte Esterase Urine WBC (Auto) Urine RBC (Auto) U Hyaline Cast (Auto) U Epithel Cells (Auto) Urine Bacteria (Auto) Urine Comment Gastric Fluid pH 3 Gastric Occult Blood Positive A Blood Type B Positive Antibody Screen NEGATIVE Crossmatch See Detail PG Care Time/CCT Total # of Minutes Spent Total Time Spent with Patient: Total time spent is greater than 50% in coordination of care (as documented) at patient's floor/unit and/or counseling patient: Coding Level of Care Code 15817 SUB INP/OBS CARE 04/27MIN Diagnoses CVA (cerebral vascular accident) I63.9 S/P ICD (internal cardiac defibrillator) procedure Z95.810 Nonischemic cardiomyopathy I42.8 DVT (deep venous thrombosis) I82.409 Time Spent (min) 25
--- NOTE | 2024-12-11 12:42 | Gastrointestinal Consultation ---
Date of Consultation December 11, 2024 Assessment & Plan (1) Anemia: 69 year old man with anemia. More than likely he has an UGI source of some bleeding with black liquid being suctioned through the PEG. EGD was unremarkable last month during PEG placement and most importantly no note was made of varices or portal hypertensive gastropathy. First, he cannot have an EGD with his hemoglobin of 6 per anesthesia. I don't think he is having an emergent bleed since his hemoglobin has stabilized. If his family desires EGD we will consider it tomorrow or more urgently if he starts having active bleeding. We do know that his mucosa was normal last month so my suspicion is gastritis exacerbated by his eliquis. Will follow hemoglobin with you History of Present Illness Reason for Consultation: anemia ?GI bleeding Attending Physician: Harlan Stock MD History of Present Illness 69 year old man admitted with ? CVA. Noted to be anemic on admit. Hgb 8.6 on admit and fell to 5.9 this morning. Three hours later hgb was 6.0. Patient unable to give history. No BM in unit but BM documented from floor was formed and brown. Patient on eliquis on admit but this was held because there was thought this may be a hemorrhagic stroke. It has since been determined that he did not have a new CVA. Patient was admitted to "[facility]" last month and had a PEG placed. Mucosa of the entire UGI tract was reported to be normal. Nurses checked residual from PEG this morning and returned black fluid without deirdre blood. Apparently has a history of alcohol abuse and has had withdrawal the past. No evidence of varices on EGD for PEG placement Allergies Allergy/AdvReac Type Severity Reaction Status Date / Time oxycodone [From Percodan] AdvReac Mild Dizziness Verified 12/09/24 23:47 Home Medications Medication Instructions Recorded Confirmed Type albuterol sulfate 90 mcg/actuation 2 puff inhalation QID PRN 09/29/24 12/09/24 History aerosol inhaler Shortness Of Breath Or Wheezing Lactobacillus rhamnosus GG 10 1 cap feeding tube DAILY 12/06/24 12/09/24 History billion cell capsule apixaban 5 mg tablet (Eliquis) 5 mg feeding tube BID 12/06/24 12/09/24 History aspirin 81 mg capsule 81 mg feeding tube DAILY 12/06/24 12/09/24 History atorvastatin 40 mg tablet 40 mg feeding tube DAILY 12/06/24 12/09/24 History coenzyme Q10 100 mg capsule (Co 100 mg PO DAILY 12/06/24 12/09/24 History Q-10) dicyclomine 10 mg capsule 10 mg feeding tube TID 12/06/24 12/09/24 History folic acid 1 mg tablet 1 mg feeding tube DAILY 12/06/24 12/09/24 History lactose-reduced food with fiber 0 ea feeding tube QID 12/06/24 12/09/24 History 0.06 gram-1.5 kcal/mL oral liquid (Jevity 1.5 Madhav) lorazepam 0.5 mg tablet (Ativan) 0.5 mg feeding tube BID PRN Anxiety 12/06/24 12/09/24 History olanzapine 15 mg tablet 15 mg feeding tube QPM 12/06/24 12/09/24 History sennosides 8.8 mg/5 mL oral syrup 5 ml feeding tube DAILY 12/06/24 12/09/24 History (senna) thiamine HCl (vitamin B1) 100 mg 100 mg feeding tube QAM 12/06/24 12/09/24 History tablet lansoprazole 30 mg capsule,delayed 30 mg PO BID #180 caps 12/09/24 12/09/24 Rx release metoprolol succinate 50 mg 50 mg PO DAILY #90 tabs 12/09/24 12/09/24 Rx tablet,extended release 24 hr potassium chloride 20 mEq 20 meq PO DAILY #100 tabs 12/09/24 12/09/24 Rx tablet,extended release Patient History Medical History Tracheostomy, acute management Partial thickness burn of ankle Second degree burn of ankle Alcohol withdrawal delirium Acute systolic heart failure Acute hypoxic respiratory failure Acute airway obstruction Acute alcohol intoxication Methicillin susceptible Staphylococcus aureus infection Abdominal wall mass of suprapubic region Alcohol intoxication Fracture of right tibial plateau (~07/05/24) Acute on chronic systolic heart failure Asthma Mitral regurgitation Surgical History History of mitral valve repair Hx of heart surgery History of back surgery History of ankle surgery Family History Brother Diabetes Mother Cancer Social History Smoking Status: Former smoker Tobacco Type: Cigarettes Age Started Using Tobacco: 43; Age Quit Using Tobacco: 69; packs per day: 0.5; Cigarettes Per Day: 1; Do You Dip or Chew Tobacco: No; Hx Alcohol Use: No Hx Substance Use: No Preferred Language: [place]amb[place] Communication Ability: Effective Communication Ability Comment: pt states he can read enough to get by but is not a very good reader [employer] Required: No Beliefs That Will Affect Care: None marital status: Legally Current Living Situation: Family Current Living Situation Comment: Daughter 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 Feels Safe at Home: Yes Safety Concerns: Feels Safe At This Time Assistive Devices: Hospital Bed and Walker Review of Systems Review of Systems: All systems reviewed & are unremarkable except as noted in HPI & below Physical Exam Constitutional: WD/WN, vitals as above + ill appearing Neck: trachea midline, no thyromegaly Respiratory: normal respiratory effort, lungs clear to auscultation Cardiovascular: RRR, no murmur, no edema Gastrointestinal (Abdomen): normal bowel sounds, soft, nontender, no hepatosplenomegaly PEG site looks good Results & Data Vital Signs (Past 12 Hours) Vital Signs Temp Pulse Pulse Resp BP BP Pulse Ox 12/11/24 12:38 36.5 C 102 H 22 96/51 L 97 12/11/24 12:31 36.5 C 106 H 24 96/51 L 96 12/11/24 11:30 12/11/24 09:50 96/48 L 12/11/24 08:10 120/80 12/11/24 07:25 12/11/24 07:00 105 H 14 91/55 L 95 O2 Del Method 12/11/24 12:38 12/11/24 12:31 12/11/24 11:30 Room Air 12/11/24 09:50 12/11/24 08:10 12/11/24 07:25 Room Air 12/11/24 07:00 Room Air Laboratory Results 12/11/24 12/11/24 12/11/24 Range/Units 10:49 10:30 07:01 WBC 9.93 10.79 (4.8-10.8) K/ul RBC 1.95 L 2.02 L (4.70-6.10) M/uL Hgb 6.0 L* 5.9 L* (14.0-18.0) g/dl Hct 18.6 L* 19.1 L* (42.0-52.0) % MCV 95.4 94.6 (80.0-100.0) fL MCH 30.8 29.2 (25.0-34.0) pg MCHC 32.3 30.9 L (32.0-36.0) g/dL RDW Std Deviation 54.0 H 54.6 H (36.4-46.3) fL RDW Coeff of Donna 15.6 H 15.6 H (11.5-14.5) % Plt Count 296 306 (130-400) K/uL MPV 11.1 11.0 (9.4-12.4) fL Immature Gran % (Auto) 0.5 % Neut % (Auto) 77.5 % Lymph % (Auto) 14.1 % [place] % (Auto) 6.5 % Eos % (Auto) 1.3 % Baso % (Auto) 0.1 % Neut # (Auto) 8.37 H (1.40-6.50) K/uL Lymph # (Auto) 1.52 (1.20-3.40) K/uL [place] # (Auto) 0.70 H (0.11-0.59) K/uL Eos # (Auto) 0.14 (0.00-0.50) K/uL Baso # (Auto) 0.01 (0.00-0.20) K/uL Immature Gran # (Auto) 0.05 (0.01-0.20) K/uL Polychromasia 1+ Sodium 137 (136-145) mmol/L Potassium 4.7 (3.5-5.1) mmol/L Chloride 108 H (98-107) mmol/L Carbon Dioxide 24 (21-32) mmol/L Anion Gap 5 (3-11) BUN 42 H (6-23) mg/dl Creatinine 0.94 (0.6-1.4) mg/dl Est Cr Clr Drug Dosing 71.8 ml/min eGFR 88.30 BUN/Creatinine Ratio 44.7 H (10-20) Glucose 94 (70-99(Fasting)) mg/dl Calcium 8.5 L (8.6-10.3) mg/dl Magnesium 1.9 (1.7-2.4) mg/dl Total Bilirubin 0.4 (0.2-1.0) mg/dl AST 15 (13-39) U/L ALT 14 (7-52) U/L Alkaline Phosphatase 76 (34-104) U/L Troponin I High Sens 7.2 (0-20) pg/ml Total Protein 6.2 D (6.0-8.3) gm/dl Albumin 2.8 L (3.4-5.0) gm/dl Globulin 3.4 (2.5-4.0) gm/dl Albumin/Globulin Ratio 0.8 L (0.9-2) Gastric Fluid pH 3 Gastric Occult Blood Positive A (Negative) Blood Type B Positive Antibody Screen NEGATIVE Crossmatch See Detail Diagnostic Findings Chest X-Ray 12/09/24 23:14 Exam(s): XR CXR 1 VIEW EXAM: XR Chest, 1 View CLINICAL HISTORY: Reason for exam: weakness. TECHNIQUE: Frontal view of the chest. COMPARISON: 10/10/2024. FINDINGS: Lungs: No consolidation. Pleural space: No pleural effusion is seen. No pneumothorax. Heart: The patient is status post midline sternotomy. Pacemaker is again noted. The heart is normal in size.. Mediastinum: Unremarkable. Bones/joints: There are degenerative changes in the spine.. IMPRESSION: No acute pulmonary disease.. Electronically signed by: Ritchie Hines MD 12/10/24 00:[address] 12/10/24 02:05 EXAM: CT head/brain wo con CLINICAL HISTORY: hx of R MCA CVA hemorragic conversion on 11/06/24 TECHNIQUE: Multiple axial images are obtained from the skull base to the vertex without contrast. CT scan was performed according to ALARA (as low as reasonably achievable). COMPARISON: 14:47:47 IVF EMBRYOLOGIST. FINDINGS: Ill-defined hypodense area is noted involving right fronto-parietal lobe cortex, subcortical and periventricular white matter - acute to subacute infarct -new finding.- MRI correlation is suggested. Mild mass effect in the form of effacement of adjacent sulcal spaces. There is cerebral atrophy. No evidence of space occupying lesion, hemorrhage, midline shift, extra axial collection, or hydrocephalus is noted. Basal cisterns are symmetric and normal in size and configuration. There are scattered periventricular hypodensities as can be seen with chronic microvascular ischemic changes. The mosquera-white matter differentiation is preserved. Visualized paranasal sinuses and mastoid air cells are well aerated. Orbital contents are within normal limits. Bony structures are intact. IMPRESSION: 1. No evidence of acute intracranial abnormality is demonstrated. 2. Chronic microvascular ischemic changes.-stable. 3. Cerebral atrophy.-stable. 4.Ill-defined hypodense area is noted involving right fronto-parietal lobe cortex, subcortical and periventricular white matter - acute to subacute infarct -new finding.- MRI correlation is suggested Electronically signed by Shin Quispe 12-10-2024 02:46 AM Brain MRI 12/10/24 08:18 MRI OF THE BRAIN COMBO CLINICAL HISTORY: History of hemorrhagic stroke. COMPARISON STUDY: Head CTs October 06, 2024 and December 10, 2024 TECHNIQUE: MRI of the brain was performed utilizing various T1 and T2-weighted sequences in the axial, sagittal, and coronal planes. Contrast-enhanced sequences were acquired following the administration of 6.7 cc of Gadavist. FINDINGS: There are no foci of restricted diffusion to suggest acute infarct. Note is made of a 5.3 x 3.7 cm focus of signal abnormality within the right frontotemporal region which corresponds to the abnormality on CT performed earlier today. This represents encephalomalacia. This demonstrates peripheral hyperintensity on the diffusion-weighted sequence which is hyperintense on the ADC map. Therefore, this represents T2 shine through. There is mild associated gyral enhancement. Ventricular system is unremarkable. Basal cisterns are patent. There are no extra-axial collections. White matter T2 hyperintense foci suggest moderate small vessel disease. There is no intracranial mass. IMPRESSION: 1. No acute intracranial findings. 2. 5.3 x 3.7 cm focus of signal abnormality within the right frontotemporal region which corresponds to the finding on head CT performed earlier today. This is consistent with a subacute to chronic right MCA territory infarct. No acute infarct. No acute hemorrhage. 3. No intracranial mass. ACT 112: Negative or not required by law. Electronically signed by: Steven Grewal M.D. 12/10/2024 3:11 PM
[2024-12-11 22:02] LABS: Hematocrit (blood only) 28.3 % (42.0-52.0); Hemoglobin 9.0 g/dl (14.0-18.0)
[2024-12-11] MEDS: D5W AND LACTATED RINGERS 1,000 ML IV SCH (22:13)
[2024-12-12 05:13] LABS: Hematocrit (blood only) 23.4 % (42.0-52.0); Hemoglobin 7.6 g/dl (14.0-18.0); Mean Corpuscular Hemoglobin 29.2 pg (25.0-34.0); Mean Corpuscular Volume 90.0 fL (80.0-100.0); Platelet Count 261 K/uL (130-400); RDW Standard Deviation 53.8 fL (36.4-46.3); Red Blood Count 2.60 M/uL (4.70-6.10); White Blood Count 10.69 K/ul (4.8-10.8)
[2024-12-12 05:32] LABS: Alanine Aminotransferase 13.0 U/L (7-52); Albumin Globulin Ratio 0.9 (0.9-2); Alkaline Phosphatase 61.0 U/L (34-104); Anion Gap 6.0 (3-11); Bilirubin,Total 0.4 mg/dl (0.2-1.0); Blood Urea Nitrogen 48.0 mg/dl (6-23); Calcium 8.4 mg/dl (8.6-10.3); Carbon Dioxide 23.0 mmol/L (21-32); Chloride 110.0 mmol/L (98-107); Creatinine Clr Calc Pharmacy 71.1 ml/min; Globulin 3.0 gm/dl (2.5-4.0); Glucose 113.0 mg/dl (70-99(Fasting)); Magnesium 2.0 mg/dl (1.7-2.4); Potassium 4.1 mmol/L (3.5-5.1); Sodium 139.0 mmol/L (136-145); Total Protein 5.6 gm/dl (6.0-8.3)
[2024-12-12] MEDS: SODIUM CHLORIDE 0.9% 500 ML IV ONE (09:58)
[2024-12-12] MEDS: D5W AND NSS 1,000 ML IV SCH (10:01)
--- NOTE | 2024-12-12 11:08 | Gastroenterology Progress Note ---
Date of Service December 12, 2024 Assessment & Plan (1) Anemia: Plan: This could be slow blood loss with oozing from mucosa with equilibration of his hemoglobin. I had a long talk with daughter who is POA and she would prefer no endoscopy unless absolutely necessary. Palliative care s involved and they are going to be addressing goals of care. Patient has indicated he doesn't want any more procedures. I will follow for now to see what is determined. Admission and Anticipated Discharge Date Admission Date: December 11, 2024 Subjective Apparently had some dark liquid with clots removed from PEG today. Hgb 9-7.6 He says he is fine. Physical Exam Constitutional: WD/WN, vitals as above + ill appearing Results & Data Vital Signs (Past 12 Hours) Vital Signs Temp Pulse Pulse Resp BP BP Pulse Ox 12/12/24 10:00 114 H 25 H 106/63 12/12/24 09:06 100 H 17 112/72 12/12/24 08:06 114 H 20 98/62 L 12/12/24 06:03 96 H 19 12/12/24 06:03 90/54 L 12/12/24 05:42 18 12/12/24 05:00 86 17 12/12/24 05:00 115/67 12/12/24 04:42 103 H 32 H 12/12/24 04:00 99/55 L 12/12/24 03:06 103 H 16 155/86 H 12/12/24 02:12 93 H 19 12/12/24 01:24 81 15 99 12/12/24 01:00 101/46 L 12/12/24 00:54 97 H 16 96 12/12/24 00:03 102 H 18 95 12/12/24 00:00 134/73 12/12/24 00:00 134/73 12/12/24 00:00 134/73 12/11/24 23:42 89 18 98 12/11/24 23:42 94 H 12/11/24 23:28 36.7 C 104 H 19 116/65 99 O2 Del Method 12/12/24 10:00 12/12/24 09:06 12/12/24 08:06 12/12/24 06:03 12/12/24 06:03 12/12/24 05:42 12/12/24 05:00 12/12/24 05:00 12/12/24 04:42 12/12/24 04:00 12/12/24 03:06 12/12/24 02:12 12/12/24 01:24 12/12/24 01:00 12/12/24 00:54 12/12/24 00:03 12/12/24 00:00 12/12/24 00:00 12/12/24 00:00 12/11/24 23:42 12/11/24 23:42 12/11/24 23:28 Room Air
--- NOTE | 2024-12-12 11:22 | XRay Report ---
KUB HISTORY: retain residue, feeding tube, r/o SBO COMPARISON STUDY: 10/10/2024 FINDINGS: PEG tube is present. There is moderate retained stool. No bowel obstruction seen. Evaluatio n for free air is limited due to supine positioning. No gross free air seen. IMPRESSION: No acute findings seen. ACT 112: Negative or not required by law. The above report was generated using voice recognition software. It may contain grammatical, syntax o r spelling errors. Electronically signed by: Mario Bingham M.D. 12/12/2024 11:21 AM
--- NOTE | 2024-12-12 12:42 | Hospitalist Progress Note ---
Date of Service December 12, 2024 Assessment & Plan (1) CVA (cerebral vascular accident): (2) S/P ICD (internal cardiac defibrillator) procedure: (3) Nonischemic cardiomyopathy: (4) DVT (deep venous thrombosis): Plan The patient is a 69-year-old male with a past medical history including hyperlipidemia, depression with anxiety, current smoker, DVT, HAP, history of alcohol use disorder and intoxication, chronic systolic CHF, status post ICD, nonischemic cardiomyopathy, NSVT, atrial flutter, CAD, MRSA, mitral valve repair BPH with LUTS who was most recently admitted to [facility] [address] from 09/29- 10/11/2024, where he was initially admitted to the PCU, and then transferred to the ICU for alcohol withdrawal, and acute agitated delirium, acute hypoxic respiratory failure and HAP. He was then discharged to an LTAC. The patient was transferred from LTAC to [facility] on 11/04/24 with complaint of coffee-ground emesis which had started earlier in the morning. CT scan in the ED showed findings concerning for a subacute infarct versus hemorrhagic conversion in the right frontal lobe. Neurosurgery was consulted and was advised to admit under hospitalist service they are. The patient was reported to have had a fall on 10/18/2024. He previou sly had an MRI on 10/30/2024, which revealed a right MCA CVA. On 11/06/2024, neurology recommended holding Eliquis for 7 to 10 days, and that his follow-up CT of the head should be completed prior to restarting Eliquis, and then get a repeat scan 48 hours after restarting. He underwent an EGD on 11/14/2024 which showed normal esophagus, stomach, duodenum and second portion of duodenum. An endoscopically removal PEG placement was successfully completed. Upon discharge there, the patient has been living with his daughter. The patient was brought to the emergency department at [facility] [address] today, due to his daughter's concerns that she could no longer care for him at home. 12/10/2024; has brain MRI completed, chronic finding 12/11/2024, drop in h/h from 8.5--> 5.9 giving 2 units of rpRBC, added protonix, maalalox, GI team consulted, neurology noted MRI is chronically, blood loss anemia h/h drop from 8.5-> 5.9 on Dec 11 s/p 2 u unit on (12/11) h/h drop from 9.0--> 7.6, GI team aware; defer immediate EGD noted large residue also noted he's overdue for colonoscopy Acute/subacute CVA- he was at outside hospital CT show ill-defined hypodense area noted involving the right frontal parietal lobe cortex, subcortical and periventricular white matter. This is the same area that is noted on report from outside MRI 10/31 evolving right MCA CVA, and CT scan 11/06/2024 noting hemorrhagic conversion of right MCA stroke. brain MRI completed on 12/10/[address] Stahl neurology; explained this is chronic finding after GI team cleared, he will benefit from anticoagulation History of alcohol abuse/alcohol withdrawal delirium- Reportedly has not had any alcoholic drink for several months Continue thiamine, folic acid, olanzapine Status post mitral valve repair/history of NSTEMI chronic systolic CHF with ejection fraction of 30%/ question of atrial flutter seen at [facility]- Change metoprolol succinate to metoprolol to tartrate to be able to go through the PEG tube Continue aspirin Holding Eliquis, with patient's on dependable history, unsure if he has been taking it telemetry, serial cardiac enzymes, serial EKG's, cardiac rhythm monitoring and a 2-D echocardiogram with Dopplers. Hyperlipidemia- Continue atorvastatin Disposition: PT /OT eval potential retirement placement Admission and Anticipated Discharge Date Admission Date: December 11, 2024 Subjective he's continued to has blood around the PEG tube sites h/h of 9.0---> 7.6 no chest pain communicated with GI team, they are deferring urgent EGD palliative team spoke with the patient, who mentioned patient has 2 sons and one daughter senior care, patient requested that we help improved discomfort around the feeding tube Physical Exam Physical Exam: VITALS: Reviewed. WEIGHT/BMI reviewed. GEN: chronically ill appearing -Head: NC/AT; -Mouth and throat: MMM. Normal gums, muc brittni, palate,. Good dentition. CV: RRR, no m/r/g. LUNGS: CTAB, no w/r/c. ABD: Soft, NT/ND, NBS, no masses or organomegaly. + for feeding tube. : N/A SKIN: Warm, well perfused. No skin rashes or abnormal lesions. EXT: No clubbing, cyanosis, or edema. NEURO: AAOx1; following command. Results & Data Results & Data Vital Signs (Past 12 Hours) Vital Signs Pulse Resp BP Pulse Ox 12/12/24 12:00 102 H 23 115/84 12/12/24 10:00 114 H 25 H 106/63 12/12/24 09:06 100 H 17 112/72 12/12/24 08:06 114 H 20 98/62 L 12/12/24 06:03 96 H 19 12/12/24 06:03 90/54 L 12/12/24 05:42 18 12/12/24 05:00 86 17 12/12/24 05:00 115/67 12/12/24 04:42 103 H 32 H 12/12/24 04:00 99/55 L 12/12/24 03:06 103 H 16 155/86 H 12/12/24 02:12 93 H 19 12/12/24 01:24 81 15 99 12/12/24 01:00 101/46 L 12/12/24 00:54 97 H 16 96 Laboratory Results Laboratory Results - last 72 hr 12/09/24 12/10/24 12/10/24 22:45 00:33 12:00 WBC 11.43 H RBC 2.95 L Hgb 8.6 L Hct 27.8 L MCV 94.2 MCH 29.2 MCHC 30.9 L RDW Std Deviation 53.5 H RDW Coeff of Donna 15.6 H Plt Count 419 H MPV 10.8 Immature Gran % (Auto) 0.3 Neut % (Auto) 67.7 Lymph % (Auto) 20.6 [place] % (Auto) 9.6 Eos % (Auto) 1.6 Baso % (Auto) 0.2 Neut # (Auto) 7.75 H Lymph # (Auto) 2.35 [place] # (Auto) 1.10 H Eos # (Auto) 0.18 Baso # (Auto) 0.02 Immature Gran # (Auto) 0.03 Polychromasia Sodium 137 Potassium 4.4 Chloride 102 Carbon Dioxide 24 Anion Gap 11 BUN 32 H Creatinine 1.10 Est Cr Clr Drug Dosing 61.4 eGFR 73.12 BUN/Creatinine Ratio 29.1 H Glucose 94 Lactate Calcium 9.7 Magnesium 2.1 Total Bilirubin 0.4 AST 22 ALT 22 Alkaline Phosphatase 117 H Troponin I High Sens Total Protein 8.7 H Albumin 3.6 Globulin 5.1 H Albumin/Globulin Ratio 0.7 L TSH 1.394 Urine Color Yellow Yellow Urine Appearance Clear Clear Urine pH 7.0 8.5 H Ur Specific [place] 1.020 1.015 Urine Protein Trace H Negative Urine Glucose (UA) Negative Negative Urine Ketones Negative Negative Urine Blood Negative Negative Urine Nitrite Negative Negative Urine Bilirubin Negative Negative Urine Urobilinogen Negative Negative Ur Leukocyte Esterase Negative Negative Urine WBC (Auto) 0-5 Urine RBC (Auto) 0-2 U Hyaline Cast (Auto) 0-2 U Epithel Cells (Auto) 0-2 Urine Bacteria (Auto) None Seen Urine Comment Nasal Screen MRSA (PCR) Gastric Fluid pH Gastric Occult Blood Blood Type Antibody Screen Crossmatch 12/11/24 12/11/24 12/11/24 07:01 10:30 10:49 WBC 10.79 9.93 RBC 2.02 L 1.95 L Hgb 5.9 L* 6.0 L* Hct 19.1 L* 18.6 L* MCV 94.6 95.4 MCH 29.2 30.8 MCHC 30.9 L 32.3 RDW Std Deviation 54.6 H 54.0 H RDW Coeff of Donna 15.6 H 15.6 H Plt Count 306 296 MPV 11.0 11.1 Immature Gran % (Auto) 0.5 Neut % (Auto) 77.5 Lymph % (Auto) 14.1 [place] % (Auto) 6.5 Eos % (Auto) 1.3 Baso % (Auto) 0.1 Neut # (Auto) 8.37 H Lymph # (Auto) 1.52 [place] # (Auto) 0.70 H Eos # (Auto) 0.14 Baso # (Auto) 0.01 Immature Gran # (Auto) 0.05 Polychromasia 1+ Sodium 137 Potassium 4.7 Chloride 108 H Carbon Dioxide 24 Anion Gap 5 BUN 42 H Creatinine 0.94 Est Cr Clr Drug Dosing 71.8 eGFR 88.30 BUN/Creatinine Ratio 44.7 H Glucose 94 Lactate Calcium 8.5 L Magnesium 1.9 Total Bilirubin 0.4 AST 15 ALT 14 Alkaline Phosphatase 76 Troponin I High Sens 7.2 Total Protein 6.2 D Albumin 2.8 L Globulin 3.4 Albumin/Globulin Ratio 0.8 L TSH Urine Color Urine Appearance Urine pH Ur Specific [place] Urine Protein Urine Glucose (UA) Urine Ketones Urine Blood Urine Nitrite Urine Bilirubin Urine Urobilinogen Ur Leukocyte Esterase Urine WBC (Auto) Urine RBC (Auto) U Hyaline Cast (Auto) U Epithel Cells (Auto) Urine Bacteria (Auto) Urine Comment Nasal Screen MRSA (PCR) Gastric Fluid pH 3 Gastric Occult Blood Positive A Blood Type B Positive Antibody Screen NEGATIVE Crossmatch See Detail 12/11/24 12/12/24 12/12/24 21:41 04:31 08:03 WBC 10.69 RBC 2.60 L Hgb 9.0 L D 7.6 L Hct 28.3 L 23.4 L MCV 90.0 D MCH 29.2 MCHC 32.5 RDW Std Deviation 53.8 H RDW Coeff of Donna 16.4 H Plt Count 261 MPV 10.9 Immature Gran % (Auto) Neut % (Auto) Lymph % (Auto) [place] % (Auto) Eos % (Auto) Baso % (Auto) Neut # (Auto) Lymph # (Auto) [place] # (Auto) Eos # (Auto) Baso # (Auto) Immature Gran # (Auto) Polychromasia Sodium 139 Potassium 4.1 Chloride 110 H Carbon Dioxide 23 Anion Gap 6 BUN 48 H Creatinine 0.95 Est Cr Clr Drug Dosing 71.1 eGFR 87.19 BUN/Creatinine Ratio 50.5 H Glucose 113 H Lactate 1.7 Calcium 8.4 L Magnesium 2.0 Total Bilirubin 0.4 AST 14 ALT 13 Alkaline Phosphatase 61 Troponin I High Sens Total Protein 5.6 L Albumin 2.6 L Globulin 3.0 Albumin/Globulin Ratio 0.9 TSH Urine Color Urine Appearance Urine pH Ur Specific [place] Urine Protein Urine Glucose (UA) Urine Ketones Urine Blood Urine Nitrite Urine Bilirubin Urine Urobilinogen Ur Leukocyte Esterase Urine WBC (Auto) Urine RBC (Auto) U Hyaline Cast (Auto) U Epithel Cells (Auto) Urine Bacteria (Auto) Urine Comment Nasal Screen MRSA (PCR) Gastric Fluid pH Gastric Occult Blood Blood Type Antibody Screen Crossmatch 12/12/24 Unknown WBC RBC Hgb Hct MCV MCH MCHC RDW Std Deviation RDW Coeff of Donna Plt Count MPV Immature Gran % (Auto) Neut % (Auto) Lymph % (Auto) [place] % (Auto) Eos % (Auto) Baso % (Auto) Neut # (Auto) Lymph # (Auto) [place] # (Auto) Eos # (Auto) Baso # (Auto) Immature Gran # (Auto) Polychromasia Sodium Potassium Chloride Carbon Dioxide Anion Gap BUN Creatinine Est Cr Clr Drug Dosing eGFR BUN/Creatinine Ratio Glucose Lactate Calcium Magnesium Total Bilirubin AST ALT Alkaline Phosphatase Troponin I High Sens Total Protein Albumin Globulin Albumin/Globulin Ratio TSH Urine Color Urine Appearance Urine pH Ur Specific [place] Urine Protein Urine Glucose (UA) Urine Ketones Urine Blood Urine Nitrite Urine Bilirubin Urine Urobilinogen Ur Leukocyte Esterase Urine WBC (Auto) Urine RBC (Auto) U Hyaline Cast (Auto) U Epithel Cells (Auto) Urine Bacteria (Auto) Urine Comment Nasal Screen MRSA (PCR) Negative Gastric Fluid pH Gastric Occult Blood Blood Type Antibody Screen Crossmatch PG Care Time/CCT Total # of Minutes Spent Total Time Spent with Patient: Total time spent is greater than 50% in coordination of care (as documented) at patient's floor/unit and/or counseling patient: Coding Level of Care Code 99485 SUB INP/OBS CARE 2/35MIN Diagnoses CVA (cerebral vascular accident) I63.9 S/P ICD (internal cardiac defibrillator) procedure Z95.810 Nonischemic cardiomyopathy I42.8 DVT (deep venous thrombosis) I82.409 Time Spent (min) 35
--- NOTE | 2024-12-12 13:15 | Palliative Care Consultation ---
Date of Consultation December 12, 2024 Assessment & Plan (1) Leg pain, right: Pt c/o chronic RLE dull aching pain r/t prior tibial fracture that happened in July 2024. He shared that it is constant ache, and denied need for pain medication. He shared that he follows with orthopaedics for this injury, raoul crespo, and they most recently told him that it is healing on it's own. (2) Nausea & vomiting: Pt c/o chronic GERD and N/V, states not currently nauseous. Vomiting type: unspecified Qualified Code(s): R11.2 - Nausea with vomiting, unspecified (3) Palliative care by specialist: Met with pt at bedside, no visitors present Introduced Palliative Medicine and explained our role in advanced care planning, symptom management and navigation through the progression of life limiting disease. Patient was receptive to palliative services for goals of care discussions. Reviewed we are different from hospice, a home health nurse visiting service. (4) Counseling regarding advanced directives and goals of care: Met with pt at bedside to discuss GOC from 10:40 - 11:10 Pt was able to verbalize a very basic understanding that he has heart disease and alcoholism with recurrent GIB. He shared that he has been living with his daughter since he was discharged from LTAC and he stated that "she "kicked me out of her house". He shared that he is actively drinking "a bottle a day" and his last alcohol intake was less than a week ago. He shared that he is not aware of why he is in the hospital aside from to say his daughter kicked him out of her house. He shared that he has one daughter (Carla Tidwell) and two sons, Olman Jose and Dave Jose. He shared that Carla has been his primary contact, but he is unsure if that will continue. He asked that his sons also be involved in any GOC discussions, however he was unable to supply contact information for either. I did attempt to bring his daughter Carla into the discussion by phone (no answer, general VM left). Patient shared that he has been resistant to invasive procedures because "every time something is done I hurt for hours afterwards and it is not worth the pain". When asked how he would feel about life prolonging procedures if we could control the pain involved he said that he would agree. We discussed his chronic illness and deconditioning and he shared that he hopes to get better and is agreeable to rehab with hope to return home afterwards. He is focused on where he will go after discharge stating he is not able to live with his daughter any longer. We discussed possible need for SNF placement vs home with additional resources. Patient deferred these decisions to his daughter. Discussed code status and helped patient understand that CPR is only done after a person has and involves uncomfortable and invasive procedures that, if successful, have high risk of multiple complications including but not limited to rib fractures, pneumo/hemothorax, ANUJ, ventilator dependence, anoxic brain injury, and intermediate/permanent cognitive and functional deficits. Patient stated that he does not want resuscitated and also that he does not want to be on ventilator. He shared concern for poor quality of life if he were to have any further damage to his brain and stated "don't bring me back to that, just let me go". Pt verbalized understanding that if he were to have cardiac or respiratory arrest and not be resuscitated he would and again verbalized preference for DNR/DNI. Pt goals of care are clearly established for DNR/DNI but continue all other ongoing life prolonging therapies, he will need assistance with planning for discharge disposition after rehab. Will need to discuss options further with pt's daughter and possibly involve sons. Received incoming call from pt's daughter at 14:00, she clarified that the plan is for pt to be discharged to [facility] for rehab and to optimize strength and functional independence prior to returning to her home. She shared that the patient has been clear about his wishes and he wants all aggressive measures to preserve his life at this time. She shared that the patient has been getting better day by day since he returned home with her and they are hopeful that he will continue to improve with more aggressive therapy. Carla shared that she was told by CM that pt has been accepted to [facility] with plan for discharge tomorrow. Discussed my earlier discussion with patient and shared pt's desire for DNR/DNI. Carla shared that she will support her father's decisions and autonomy over his own health care, however she request no changes in code status until she has a chance to discuss with him this evening. . Plan as above. History of Present Illness Reason for Consultation: goals of care Requesting Physician: Natalia Nice DO Attending Physician: Natalia Nice DO History of Present Illness Mr Jose is a 69y male with PMHx including hyperlipidemia, depression with anxiety, current smoker, DVT, HAP, history of alcohol use disorder and intoxication, chronic systolic CHF, status post ICD, nonischemic cardiomyopathy, NSVT, atrial flutter, CAD, MRSA, mitral valve repair BPH with LUTS who was most recently admitted to [facility] from 09/29-10/11/2024, where he was initially admitted to the PCU, and then transferred to the ICU for alcohol withdrawal, and acute agitated delirium, acute hypoxic respiratory failure and HAP. He was then discharged to an LTAC. The patient was transferred from LTAC to [facility] on 11/04/24 with complaint of coffee-ground emesis which had started earlier in the morning. CT scan in the ED showed findings concerning for a subacute infarct versus hemorrhagic conversion in the right frontal lobe. Neurosurgery was consulted and was advised to admit under hospitalist service nataly george. The patient was reported to have had a fall on 10/18/2024. He previously had an MRI on 10/30/2024, which revealed a right MCA CVA. On 11/06/2024, neurology recommended holding Eliquis for 7 to 10 days, and that his follow-up CT of the head should be completed prior to restarting Eliquis, and then get a repeat scan 48 hours after restarting. He underwent an EGD on 11/14/2024 which showed normal esophagus, stomach, duodenum and second portion of duodenum. An endoscopically removal PEG placement was successfully completed and patient was discharged to home with his daughter. The patient was brought to the emergency department at [facility] 12/11/24, due to his daughter's concerns that she could no longer care for him at home. Allergies Allergy/AdvReac Type Severity Reaction Status Date / Time oxycodone [From Percodan] AdvReac Mild Dizziness Verified 12/09/24 23:47 Home Medications Medication Instructions Recorded Confirmed Type albuterol sulfate 90 mcg/actuation 2 puff inhalation QID PRN 09/29/24 12/09/24 History aerosol inhaler Shortness Of Breath Or Wheezing Lactobacillus rhamnosus GG 10 1 cap feeding tube DAILY 12/06/24 12/09/24 History billion cell capsule apixaban 5 mg tablet (Eliquis) 5 mg feeding tube BID 12/06/24 12/09/24 History aspirin 81 mg capsule 81 mg feeding tube DAILY 12/06/24 12/09/24 History atorvastatin 40 mg tablet 40 mg feeding tube DAILY 12/06/24 12/09/24 History coenzyme Q10 100 mg capsule (Co 100 mg PO DAILY 12/06/24 12/09/24 History Q-10) dicyclomine 10 mg capsule 10 mg feeding tube TID 12/06/24 12/09/24 History folic acid 1 mg tablet 1 mg feeding tube DAILY 12/06/24 12/09/24 History lactose-reduced food with fiber 0 ea feeding tube QID 12/06/24 12/09/24 History 0.06 gram-1.5 kcal/mL oral liquid (Jevity 1.5 Madhav) lorazepam 0.5 mg tablet (Ativan) 0.5 mg feeding tube BID PRN Anxiety 12/06/24 12/09/24 History olanzapine 15 mg tablet 15 mg feeding tube QPM 12/06/24 12/09/24 History sennosides 8.8 mg/5 mL oral syrup 5 ml feeding tube DAILY 12/06/24 12/09/24 Hi story (senna) thiamine HCl (vitamin B1) 100 mg 100 mg feeding tube QAM 12/06/24 12/09/24 History tablet lansoprazole 30 mg capsule,delayed 30 mg PO BID #180 caps 12/09/24 12/09/24 Rx release metoprolol succinate 50 mg 50 mg PO DAILY #90 tabs 12/09/24 12/09/24 Rx tablet,extended release 24 hr potassium chloride 20 mEq 20 meq PO DAILY #100 tabs 12/09/24 12/09/24 Rx tablet,extended release Patient History Medical History Tracheostomy, acute management Partial thickness burn of ankle Second degree burn of ankle Alcohol withdrawal delirium Acute systolic heart failure Acute hypoxic respiratory failure Acute airway obstruction Acute alcohol intoxication Methicillin susceptible Staphylococcus aureus infection Abdominal wall mass of suprapubic region Alcohol intoxication Fracture of right tibial plateau (~07/05/24) Acute on chronic systolic heart failure Asthma Mitral regurgitation Surgical History History of mitral valve repair Hx of heart surgery History of back surgery History of ankle surgery Family History Brother Diabetes Mother Cancer Social History Smoking Status: Former smoker Tobacco Type: Cigarettes Age Started Using Tobacco: 43; Age Quit Using Tobacco: 69; packs per day: 0.5; Cigarettes Per Day: 1; Do You Dip or Chew Tobacco: No; Hx Alcohol Use: No Hx Substance Use: No Preferred Language: Greek Communication Ability: Effective Communication Ability Comment: pt states he can read enough to get by but is not a very good reader Silk Examiner Required: No Beliefs That Will Affect Care: None marital status: Legally Current Living Situation: Family Current Living Situation Comment: Daughter 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 Feels Safe at Home: Yes Safety Concerns: Feels Safe At This Time Assistive Devices: Walker Review of Systems Review of Systems: All systems reviewed & are unremarkable except as noted in HPI & below Physical Exam Constitutional: + ill appearing, + thin and cooperative Eyes: PERRL, conjunctivae normal, anicteric sclerae Neck: trachea midline, no thyromegaly Respiratory: normal respiratory effort, lungs clear to auscultation Cardiovascular: RRR, no murmur, no edema Gastrointestinal (Abdomen): Inspection/Auscultation: + abdomen distended and normal bowel sounds Percussion/Palpation: abdomen soft Musculoskeletal: no cyanosis or clubbing, extremities motor strength 5/5 Skin: no rashes, warm and dry + jaundice Neurologic: slurred speech per baseline Psychiatric: A+Ox3, euthymic affect Results & Data Vital Signs (Past 12 Hours) Vital Signs Pulse Resp BP Pulse Ox 12/12/24 12:00 102 H 23 115/84 12/12/24 10:00 114 H 25 H 106/63 12/12/24 09:06 100 H 17 112/72 12/12/24 08:06 114 H 20 98/62 L 12/12/24 06:03 96 H 19 12/12/24 06:03 90/54 L 12/12/24 05:42 18 12/12/24 05:00 86 17 12/12/24 05:00 115/67 12/12/24 04:42 103 H 32 H 12/12/24 04:00 99/55 L 12/12/24 03:06 103 H 16 155/86 H 12/12/24 02:12 93 H 19 12/12/24 01:24 81 15 99 Laboratory Results Abnormal lab results 12/11/24 12/11/24 12/12/24 Range/Units 10:49 21:41 04:31 RBC 2.60 L (4.70-6.10) M/uL Hgb 9.0 L D 7.6 L (14.0-18.0) g/dl Hct 28.3 L 23.4 L (42.0-52.0) % RDW Std Deviation 53.8 H (36.4-46.3) fL RDW Coeff of Donna 16.4 H (11.5-14.5) % Chloride 110 H (98-107) mmol/L BUN 48 H (6-23) mg/dl BUN/Creatinine Ratio 50.5 H (10-20) Glucose 113 H (70-99(Fasting)) mg/dl Calcium 8.4 L (8.6-10.3) mg/dl Total Protein 5.6 L (6.0-8.3) gm/dl Albumin 2.6 L (3.4-5.0) gm/dl Crossmatch See Detail Diagnostic Findings Chest X-Ray 12/09/24 23:14 Exam(s): XR CXR 1 VIEW EXAM: XR Chest, 1 View CLINICAL HISTORY: Reason for exam: weakness. TECHNIQUE: Frontal view of the chest. COMPARISON: 10/10/2024. FINDINGS: Lungs: No consolidation. Pleural space: No pleural effusion is seen. No pneumothorax. Heart: The patient is status post midline sternotomy. Pacemaker is again noted. The heart is normal in size.. Mediastinum: Unremarkable. Bones/joints: There are degenerative changes in the spine.. IMPRESSION: No acute pulmonary disease.. Electronically signed by: Ritchie Hines MD 12/10/24 00:[address] 12/10/24 02:05 EXAM: CT head/brain wo con CLINICAL HISTORY: hx of R MCA CVA hemorragic conversion on 11/06/24 TECHNIQUE: Multiple axial images are obtained from the skull base to the vertex without contrast. CT scan was performed according to CADEN (as low as reasonably achievable). COMPARISON: 14:47:47 TRIAL JUDGE. FINDINGS: Ill-defined hypodense area is noted involving right fronto-parietal lobe cortex, subcortical and periventricular white matter - acute to subacute infarct -new finding.- MRI correlation is suggested. Mild mass effect in the form of effacement of adjacent sulcal spaces. There is cerebral atrophy. No evidence of space occupying lesion, hemorrhage, midline shift, extra axial collection, or hydrocephalus is noted. Basal cisterns are symmetric and normal in size and configuration. There are scattered periventricular hypodensities as can be seen with chronic microvascular ischemic changes. The mosquera-white matter differentiation is preserved. Visualized paranasal sinuses and mastoid air cells are well aerated. Orbital contents are within normal limits. Bony structures are intact. IMPRESSION: 1. No evidence of acute intracranial abnormality is demonstrated. 2. Chronic microvascular ischemic changes.-stable. 3. Cerebral atrophy.-stable. 4.Ill-defined hypodense area is noted involving right fronto-parietal lobe cortex, subcortical and periventricular white matter - acute to subacute infarct -new finding.- MRI correlation is suggested Electronically signed by Shin Quispe 12-10-2024 02:46 AM Brain MRI 12/10/24 08:18 MRI OF THE BRAIN COMBO CLINICAL HISTORY: History of hemorrhagic stroke. COMPARISON STUDY: Head CTs October 06, 2024 and December 10, 2024 TECHNIQUE: MRI of the brain was performed utilizing various T1 and T2-weighted sequences in the axial, sagittal, and coronal planes. Contrast-enhanced sequences were acquired following the administration of 6.7 cc of Gadavist. FINDINGS: There are no foci of restricted diffusion to suggest acute infarct. Note is made of a 5.3 x 3.7 cm focus of signal abnormality within the right frontotemporal region which corresponds to the abnormality on CT performed earlier today. This represents encephalomalacia. This demonstrates peripheral hy perintensity on the diffusion-weighted sequence which is hyperintense on the ADC map. Therefore, this represents T2 shine through. There is mild associated gyral enhancement. Ventricular system is unremarkable. Basal cisterns are patent. There are no extra-axial collections. White matter T2 hyperintense foci suggest moderate small vessel disease. There is no intracranial mass. IMPRESSION: 1. No acute intracranial findings. 2. 5.3 x 3.7 cm focus of signal abnormality within the right frontotemporal region which corresponds to the finding on head CT performed earlier today. This is consistent with a subacute to chronic right MCA territory infarct. No acute infarct. No acute hemorrhage. 3. No intracranial mass. ACT 112: Negative or not required by law. Electronically signed by: Steven Grewal M.D. 12/10/2024 3:11 PM KUB X-Ray 12/12/24 08:16 KUB HISTORY: retain residue, feeding tube, r/o SBO COMPARISON STUDY: 10/10/2024 FINDINGS: PEG tube is present. There is moderate retained stool. No bowel obstruction seen. Evaluation for free air is limited due to supine positioning. No gross free air seen. IMPRESSION: No acute findings seen. ACT 112: Negative or not required by law. The above report was generated using voice recognition software. It may contain grammatical, syntax or spelling errors. Electronically signed by: Mario Bingham M.D. 12/12/2024 11:21 AM Medications Administered Current Inpatient Medications Al Hydrox/Mg Hydrox/Simethicone (Aluminum/Magnesium Susp 30 Ml Udc) 15 ml PEG Q8H [facility] Stop: 12/14/24 07:59 Last Admin: 12/12/24 00:38 Dose: 15 ml Albuterol (Albuterol Hfa 8 Gm Inhaler) 2 puffs INH QID PRN PRN Reason: Shortness Of Breath Or Wheezin Stop: 01/09/25 02:30 Aspirin (Aspirin 81 Mg Chew) 81 mg PEG DAILY [facility]U Stop: 01/09/25 08:59 Last Admin: 12/10/24 08:12 Dose: 81 mg Atorvastatin Calcium (Atorvastatin 40 Mg Tab) 40 mg PEG DAILY [facility] Stop: 01/09/25 08:59 Last Admin: 12/12/24 11:57 Dose: 40 mg Dicyclomine HCl (Dicyclomine Hcl 10 Mg Cap) 10 mg PEG TID [facility]U Stop: 01/09/25 08:59 Last Admin: 12/12/24 11:57 Dose: 10 mg Folic Acid (Folic Acid 1 Mg Tab) 1 mg PEG DAILY [facility] Stop: 01/09/25 08:59 Last Admin: 12/12/24 11:57 Dose: 1 mg Thiamine HCl 200 mg/ Sodium (Chloride) 52 mls @ 210 mls/hr IV QAM [facility] Stop: 01/09/25 08:59 Last Admin: 12/12/24 12:10 Dose: 210 mls/hr Pantoprazole Sodium 40 mg/ (Dextrose) 100 mls @ 20 mls/hr IV Q5H [facility] Stop: 01/10/25 10:59 Last Admin: 12/12/24 10:02 Dose: 8 mg/hr, 20 mls/hr Dextrose/Sodium Chloride (D5w And Nss) 1,000 mls @ 110 mls/hr IV .Q9H6M [facility] Stop: 12/14/24 08:29 Last Admin: 12/12/24 10:01 Dose: 110 mls/hr Lactobacillus Acidophilus (Lactobacillus Acidophilus 1 Gm Pack) 1 packet PEG DAILY [facility] Stop: 01/09/25 08:59 Last Admin: 12/12/24 11:57 Dose: 1 packet Lorazepam (Lorazepam 0.5 Mg Tab) 0.5 mg SL BID PRN PRN Reason: Anxiety Stop: 01/09/25 02:30 Metoprolol Tartrate (Metoprolol Tartrate 25 Mg Tab) 25 mg PEG BID [facility] Stop: 01/09/25 08:59 Last Admin: 12/12/24 11:57 Dose: 25 mg Nutritional Formula (Nutren Liqd 2.0 1,000 Ml Bag) 250 ml PEG BID@1000,2000 [facility]; Protocol Stop: 01/09/25 21:59 Last Admin: 12/11/24 22:32 Dose: Not Given Olanzapine (Olanzapine 5 Mg Tablet) 15 mg PO QPM [facility] Stop: 01/09/25 20:59 Last Admin: 12/11/24 22:31 Dose: 15 mg Ondansetron HCl (Ondansetron Inj 2 Mg/Ml 2 Ml Vial) 4 mg IV Q6H PRN PRN Reason: Nausea Stop: 01/09/25 02:30 Last Admin: 12/10/24 12:02 Dose: 4 mg Sennosides (Sennosides 8.8 Mg/5 Ml Udc) 8.8 mg PEG DAILY [facility] Stop: 01/09/25 08:59 Last Admin: 12/12/24 11:57 Dose: 8.8 mg Sterile Water (Tube Feeding Water Flush) 120 ml GT 1000,1030,2000,2030 [facility] Stop: 01/09/25 21:59 Last Admin: 12/12/24 11:57 Dose: Not Given PG Care Time/CCT Total # of Minutes Spent Total Time Spent with Patient: Total time spent is greater than 50% in coordination of care (as documented) at patient's floor/unit and/or counseling patient: Advanced Care Planning 55314 Advanced Care Planning 30 Min [place] [address] IN/OBS CONSULT LVL 4,60M Patient Type New History Expanded Problem Focused Medical Decision Making Moderate Complexity Diagnoses Leg pain, right M79.604 Nausea & vomiting R11.2 Vomiting type: unspecified Palliative care by specialist Z51.5 Counseling regarding advanced directives and goals of care Z71.89 Additional Codes Advanced Care Planning - 97676 Advanced Care Planning 30 Min: 20406 Advanced Care Planning 30 Min ([id number])
[2024-12-12 17:43] LABS: Hematocrit (blood only) 21.4 % (42.0-52.0); Hemoglobin 6.9 g/dl (14.0-18.0); Mean Corpuscular Hemoglobin 29.1 pg (25.0-34.0); Mean Corpuscular Volume 90.3 fL (80.0-100.0); Platelet Count 252 K/uL (130-400); RDW Standard Deviation 54.3 fL (36.4-46.3); Red Blood Count 2.37 M/uL (4.70-6.10); White Blood Count 9.62 K/ul (4.8-10.8)
[2024-12-12] MEDS ORDERED: SODIUM CHLORIDE 0.9% 100 ML IV PRN (17:43)
[2024-12-12 17:58] LABS: Immature Granulocytes # (auto) 0.04 K/uL (0.01-0.20); Immature Granulocytes % (auto) 0.4 %; Polychromasia 1+
[2024-12-12 18:16] LABS: INR 1.0 (0.9-1.1); Partial Thromboplastin Time 24 Seconds (21-31); Prothrombin Time 11.1 Seconds (9.0-12.0)
[2024-12-12] MEDS: CALCIUM CARBONATE 500 MG CHEWABLE TAB ONE (18:44)
[2024-12-12] MEDS ORDERED: SUCRALFATE 1 GM TAB PO PRN (19:11)
[2024-12-12] MEDS: CALCIUM CARBONATE 500 MG CHEWABLE TAB PO ONE (20:43)
[2024-12-12] MEDS ORDERED: Nursing to Pharmacy Communication SCH (23:45)
[2024-12-13] MEDS ORDERED: Nursing to Pharmacy Communication SCH (02:45)
[2024-12-13 05:58] LABS: Hematocrit (blood only) 23.7 % (42.0-52.0); Hemoglobin 7.6 g/dl (14.0-18.0); Mean Corpuscular Hemoglobin 28.3 pg (25.0-34.0); Mean Corpuscular Volume 88.1 fL (80.0-100.0); Platelet Count 224 K/uL (130-400); RDW Standard Deviation 53.4 fL (36.4-46.3); Red Blood Count 2.69 M/uL (4.70-6.10); White Blood Count 7.25 K/ul (4.8-10.8)
[2024-12-13 06:16] LABS: Alanine Aminotransferase 16.0 U/L (7-52); Albumin Globulin Ratio 0.9 (0.9-2); Alkaline Phosphatase 67.0 U/L (34-104); Anion Gap 5.0 (3-11); Bilirubin,Total 0.4 mg/dl (0.2-1.0); Blood Urea Nitrogen 35.0 mg/dl (6-23); Calcium 8.2 mg/dl (8.6-10.3); Carbon Dioxide 21.0 mmol/L (21-32); Chloride 114.0 mmol/L (98-107); Creatinine Clr Calc Pharmacy 74.2 ml/min; Globulin 3.1 gm/dl (2.5-4.0); Glucose 112.0 mg/dl (70-99(Fasting)); Magnesium 1.9 mg/dl (1.7-2.4); Potassium 3.8 mmol/L (3.5-5.1); Sodium 140.0 mmol/L (136-145); Total Protein 5.8 gm/dl (6.0-8.3)
--- NOTE | 2024-12-13 10:59 | Hospitalist Progress Note ---
Date of Service December 13, 2024 Assessment & Plan (1) CVA (cerebral vascular accident): (2) S/P ICD (internal cardiac defibrillator) procedure: (3) Nonischemic cardiomyopathy: (4) DVT (deep venous thrombosis): Plan The patient is a 69-year-old male with a past medical history including hyperlipidemia, depression with anxiety, current smoker, DVT, HAP, history of alcohol use disorder and intoxication, chronic systolic CHF, status post ICD, nonischemic cardiomyopathy, NSVT, atrial flutter, CAD, MRSA, mitral valve repair BPH with LUTS who was most recently admitted to [facility] from 09/29- 10/11/2024, where he was initially admitted to the PCU, and then transferred to the ICU for alcohol withdrawal, and acute agitated delirium, acute hypoxic respiratory failure and HAP. He was then discharged to an LTAC. The patient was transferred from LTAC to [facility] on 11/04/24 with complaint of coffee-ground emesis which had started earlier in the morning. CT scan in the ED showed findings concerning for a subacute infarct versus hemorrhagic conversion in the right frontal lobe. Neurosurgery was consulted and was advised to admit under hospitalist service they are. The patient was reported to have had a fall on 10/18/2024. He previou sly had an MRI on 10/30/2024, which revealed a right MCA CVA. On 11/06/2024, neurology recommended holding Eliquis for 7 to 10 days, and that his follow-up CT of the head should be completed prior to restarting Eliquis, and then get a repeat scan 48 hours after restarting. He underwent an EGD on 11/14/2024 which showed normal esophagus, stomach, duodenum and second portion of duodenum. An endoscopically removal PEG placement was successfully completed. Upon discharge there, the patient has been living with his daughter. The patient was brought to the emergency department at [facility] today, due to his daughter's concerns that she could no longer care for him at home. 12/10/2024; has brain MRI completed, chronic finding 12/11/2024, drop in h/h from 8.5--> 5.9 giving 2 units of rpRBC, added protonix, maalalox, GI team consulted, neurology noted MRI is chronically, 12/12/2024, h/h drop again and then s/p blood transfusion blood loss anemia c/w carafate h/h drop from 8.5-> 5.9 on Dec 11 s/p 2 u unit on (12/11) s/p one unit on 12/12 h/h drop from 9.0--> 7.6, GI team aware; defer immediate EGD also noted he's overdue for colonoscopy goal of care per the patient, he was requesting medical management but no intubation, no CPR but daughter disagreed and rely this is not his wish Acute/subacute CVA- he was at outside hospital CT show ill-defined hypodense area noted involving the right frontal parietal lobe cortex, subcortical and periventricular white matter. This is the same area that is noted on report from outside MRI 10/31 evolving right MCA CVA, and CT scan 11/06/2024 noting hemorrhagic conversion of right MCA stroke. brain MRI completed on 12/10/[address] Stahl neurology; explained this is chronic finding after GI team cleared, he will benefit from anticoagulation History of alcohol abuse/alcohol withdrawal delirium- Reportedly has not had any alcoholic drink for several months Continue thiamine, folic acid, olanzapine Status post mitral valve repair/history of NSTEMI chronic systolic CHF with ejection fraction of 30%/ question of atrial flutter seen at [facility]- Change metoprolol succinate to metoprolol to tartrate to be able to go through the PEG tube Continue aspirin Holding Eliquis, with patient's on dependable history, unsure if he has been taking it telemetry, serial cardiac enzymes, serial EKG's, cardiac rhythm monitoring and a 2-D echocardiogram with Dopplers. Hyperlipidemia- Continue atorvastatin Disposition: PT /OT eval potential long term placement Admission and Anticipated Discharge Date Admission Date: December 11, 2024 Subjective he s/p blood transfusion yesterday continue to monitor blood around the PEG tube sites added carafate, c/w protonix his mentation is similiar than yesterday palliative care is on board to delineate the goal of care Physical Exam Physical Exam: VITALS: Reviewed. WEIGHT/BMI reviewed. GEN: non-toxic appearing skin: pale -Head: NC/AT; -Eyes: PERRL, EOMI. No discharge or redn ess; NECK: Supple, with no masses. CV: RRR, no m/r/g. LUNGS: CTAB, no w/r/c. ABD: + for feeding tube; soft to touch; non-tender to palpation MSK: No deformities, Normal gait. EXT: No clubbing, cyanosis, or edema. NEURO: AAox2 Results & Data Results & Data Vital Signs (Past 12 Hours) Vital Signs Temp Pulse Resp BP Pulse Ox O2 Del Method 12/13/24 07:51 36.2 C L 97 H 20 136/74 99 Room Air 12/13/24 03:32 36.3 C L 94 H 20 115/57 L 95 Room Air 12/12/24 23:12 36.4 C L 105 H 18 132/66 95 Room Air Medications Administered Current Inpatient Medications Al Hydrox/Mg Hydrox/Simethicone (Aluminum/Magnesium Susp 30 Ml Udc) 15 ml PEG Q8H TOLU Stop: 12/14/24 07:59 Last Admin: 12/13/24 08:54 Dose: 15 ml Albuterol (Albuterol Hfa 8 Gm Inhaler) 2 puffs INH QID PRN PRN Reason: Shortness Of Breath Or Wheezin Stop: 01/09/25 02:30 Aspirin (Aspirin 81 Mg Chew) 81 mg PEG DAILY TOLU Stop: 01/09/25 08:59 Last Admin: 12/10/24 08:12 Dose: 81 mg Atorvastatin Calcium (Atorvastatin 40 Mg Tab) 40 mg PEG DAILY TOLU Stop: 01/09/25 08:59 Last Admin: 12/13/24 08:50 Dose: 40 mg Dicyclomine HCl (Dicyclomine Hcl 10 Mg Cap) 10 mg PEG TID TOLU Stop: 01/09/25 08:59 Last Admin: 12/13/24 08:50 Dose: 10 mg Folic Acid (Folic Acid 1 Mg Tab) 1 mg PEG DAILY TOLU Stop: 01/09/25 08:59 Last Admin: 12/13/24 08:50 Dose: 1 mg Thiamine HCl 200 mg/ Sodium (Chloride) 52 mls @ 210 mls/hr IV QAM TOLU Stop: 01/09/25 08:59 Last Infusion: 12/13/24 10:35 Dose: Infused Pantoprazole Sodium 40 mg/ (Dextrose) 100 mls @ 20 mls/hr IV Q5H TOLU Stop: 01/10/25 10:59 Last Admin: 12/13/24 10:25 Dose: 8 mg/hr, 20 mls/hr Dextrose/Sodium Chloride (D5w And Nss) 1,000 mls @ 110 mls/hr IV .Q9H6M [facility] Stop: 12/14/24 08:29 Last Admin: 12/13/24 06:04 Dose: 110 mls/hr Lactobacillus Acidophilus (Lactobacillus Acidophilus 1 Gm Pack) 1 packet PEG DAILY TOLU Stop: 01/09/25 08:59 Last Admin: 12/13/24 08:50 Dose: 1 packet Lorazepam (Lorazepam 0.5 Mg Tab) 0.5 mg SL BID PRN PRN Reason: Anxiety Stop: 01/09/25 02:30 Metoprolol Tartrate (Metoprolol Tartrate 25 Mg Tab) 25 mg PEG BID TOLU Stop: 01/09/25 08:59 Last Admin: 12/13/24 08:50 Dose: 25 mg Multivitamins/Minerals (Cerovite Adv Formula Tab) 1 tab PO QAM [facility] Stop: 01/12/25 10:59 Nutritional Formula (Nutren Liqd 2.0 1,000 Ml Bag) 250 ml PEG BID@1000,2000 TOLU; Protocol Stop: 01/09/25 21:59 Last Admin: 12/12/24 17:54 Dose: Not Given Olanzapine (Olanzapine 5 Mg Tablet) 15 mg PO QPM TOLU Stop: 01/09/25 20:59 Last Admin: 12/12/24 21:15 Dose: 15 mg Ondansetron HCl (Ondansetron Inj 2 Mg/Ml 2 Ml Vial) 4 mg IV Q6H PRN PRN Reason: Nausea Stop: 01/09/25 02:30 Last Admin: 12/12/24 21:14 Dose: 4 mg Sennosides (Sennosides 8.8 Mg/5 Ml Udc) 8.8 mg PEG DAILY TOLU Stop: 01/09/25 08:59 Last Admin: 12/13/24 08:49 Dose: 8.8 mg Sterile Water (Tube Feeding Water Flush) 120 ml GT 1000,1030,2000,2030 [facility] Stop: 01/09/25 21:59 Last Admin: 12/12/24 20:45 Dose: 120 ml Sucralfate (Sucralfate 1 Gm Tab) 1 gm PO NOW PRN PRN Reason: Heartburn Sucralfate (Sucralfate 1 Gm/10 Ml Udc) 1 gm PO QID@0700,1100,1600,2100 [facility] Stop: 01/12/25 10:59 Vitamin B Complex (Vitamin B Complex Tab) 1 tab PO QAM [facility] Stop: 01/12/25 10:59 PG Care Time/CCT Total # of Minutes Spent Total Time Spent with Patient: Total time spent is greater than 50% in coordination of care (as documented) at patient's floor/unit and/or counseling patient: Coding Level of Care Code 02284 SUB INP/OBS CARE 04/27MIN Diagnoses CVA (cerebral vascular accident) I63.9 S/P ICD (internal cardiac defibrillator) procedure Z95.810 Nonischemic cardiomyopathy I42.8 DVT (deep venous thrombosis) I82.409 Time Spent (min) 25
[2024-12-13] MEDS: SUCRALFATE 1 GM/10 ML UDC PO SCH (12:13)
[2024-12-13] MEDS: CEROVITE ADV FORMULA TAB PO SCH (12:13)
[2024-12-13] MEDS: VITAMIN B COMPLEX TAB PO SCH (12:14)
--- NOTE | 2024-12-13 13:56 | Palliative Care Progress Note ---
Date of Service December 13, 2024 Assessment & Plan (1) Lethargy: (2) Leg pain, right: Plan: Pt c/o chronic RLE dull aching pain r/t prior tibial fracture that happened in July 2024. He denied need for pain medication. He follows with orthopaedics for this injury, [facility], and they most recently told him that it is healing on it's own. (3) Counseling regarding advanced directives and goals of care: Plan: Had lengthy discussion of GOC with pt on 12/12 at which time pt shared that he would wish to be DNR/DNI but continue all other life promoting therapies. Per attending notes pt's daughter has requested pt remain full code. Pt again today shared that he would not want to be resuscitated if it would result in additional cognitive deficits for him. Reinforced prior discussion of code status and that resuscitation involves uncomfortable and invasive procedures that, if successful have high risk of multiple complications including but not limited to rib fractures, pneumo/hemothorax, ANUJ, ventilator dependence, anoxic brain injury, and longterm/permanent cognitive and functional deficits. We discussed that CPR is only performed after a person has and the outcome of resuscitation cannot be guaranteed. He reinforced that Carla is his chosen proxy for healthcare decisions and that he did not discuss this with his daughter yet. Discussed importance of him discussing his values, quality of life, and GOC with Carla to help her understand and support his goals of care. With pt's permission, I attempted to call Carla to add her to discussion, no answer and mailbox was full, unable to leave message. (4) Palliative care by specialist: Plan: Palliative care will continue to follow for ongoing GOC discussions and pt/family support. Plan as above Admission and Anticipated Discharge Date Admission Date: December 11, 2024 Subjective Assessed pt at bedside, no visitors present. Pt denies any discomfort. NAD on RA and NAEON. Pt verbalizes desire for breakfast and frustration with being NPO. Review of Systems Review of Systems: All systems reviewed & are unremarkable except as noted in Subjective Physical Exam Constitutional: + ill appearing, + thin and cooperative Eyes: PERRL, conjunctivae normal, anicteric sclerae Neck: trachea midline, no thyromegaly Respiratory: normal respiratory effort, lungs clear to auscultation Cardiovascular: RRR, no murmur, no edema Gastrointestinal (Abdomen): Inspection/Auscultation: + abdomen distended and normal bowel sounds Percussion/Palpation: abdomen soft Musculoskeletal: no cyanosis or clubbing, extremities motor strength 5/5 Skin: no rashes, warm and dry + jaundice Neurologic: slurred speech per baseline Psychiatric: A+Ox3, euthymic affect Results & Data Vital Signs (Past 12 Hours) Vital Signs Temp Pulse Pulse Resp BP Pulse Ox O2 Del Method 12/13/24 13:30 101 H 12/13/24 11:50 37.4 C 82 18 132/72 100 Room Air 12/13/24 08:00 79 12/13/24 07:51 36.2 C L 97 H 20 136/74 99 Room Air 12/13/24 03:32 36.3 C L 94 H 20 115/57 L 95 Room Air Laboratory Results Abnormal lab results 12/11/24 12/12/24 12/13/24 Range/Units 10:49 17:12 05:18 RBC 2.37 L 2.69 L (4.70-6.10) M/uL Hgb 6.9 L* 7.6 L (14.0-18.0) g/dl Hct 21.4 L 23.7 L (42.0-52.0) % RDW Std Deviation 54.3 H 53.4 H (36.4-46.3) fL RDW Coeff of Donna 16.6 H 16.9 H (11.5-14.5) % Neut # (Auto) 6.93 H (1.40-6.50) K/uL [place] # (Auto) 0.66 H (0.11-0.59) K/uL Chloride 114 H (98-107) mmol/L BUN 35 H (6-23) mg/dl BUN/Creatinine Ratio 38.5 H (10-20) Glucose 112 H (70-99(Fasting)) mg/dl Calcium 8.2 L (8.6-10.3) mg/dl Total Protein 5.8 L (6.0-8.3) gm/dl Albumin 2.7 L (3.4-5.0) gm/dl Crossmatch See Detail Diagnostic Findings Chest X-Ray 12/09/24 23:14 Exam(s): XR CXR 1 VIEW EXAM: XR Chest, 1 View CLINICAL HISTORY: Reason for exam: weakness. TECHNIQUE: Frontal view of the chest. COMPARISON: 10/10/2024. FINDINGS: Lungs: No consolidation. Pleural space: No pleural effusion is seen. No pneumothorax. Heart: The patient is status post midline sternotomy. Pacemaker is again noted. The heart is normal in size.. Mediastinum: Unremarkable. Bones/joints: There are degenerative changes in the spine.. IMPRESSION: No acute pulmonary disease.. Electronically signed by: Ritchie Hines MD 12/10/24 00:[address] 12/10/24 02:05 EXAM: CT head/brain wo con CLINICAL HISTORY: hx of R MCA CVA hemorragic conversion on 11/06/24 TECHNIQUE: Multiple axial images are obtained from the skull base to the vertex without contrast. CT scan was performed according to ALARA (as low as reasonably achievable). COMPARISON: 14:47:47 EDUCATION PROGRAM COORDINATOR. FINDINGS: Ill-defined hypodense area is noted involving right fronto-parietal lobe cortex, subcortical and periventricular white matter - acute to subacute infarct -new finding.- MRI correlation is suggested. Mild mass effect in the form of effacement of adjacent sulcal spaces. There is cerebral atrophy. No evidence of space occupying lesion, hemorrhage, midline shift, extra axial collection, or hydrocephalus is noted. Basal cisterns are symmetric and normal in size and configuration. There are scattered periventricular hypodensities as can be seen with chronic microvascular ischemic changes. The mosquera-white matter differentiation is preserved. Visualized paranasal sinuses and mastoid air cells are well aerated. Orbital contents are within normal limits. Bony structures are intact. IMPRESSION: 1. No evidence of acute intracranial abnormality is demonstrated. 2. Chronic microvascular ischemic changes.-stable. 3. Cerebral atrophy.-stable. 4.Ill-defined hypodense area is noted involving right fronto-parietal lobe cortex, subcortical and periventricular white matter - acute to subacute infarct -new finding.- MRI correlation is suggested Electronically signed by Shin Quispe 12-10-2024 02:46 AM Brain MRI 12/10/24 08:18 MRI OF THE BRAIN COMBO CLINICAL HISTORY: History of hemorrhagic stroke. COMPARISON STUDY: Head CTs October 06, 2024 and December 10, 2024 TECHNIQUE: MRI of the brain was performed utilizing various T1 and T2-weighted sequences in the axial, sagittal, and coronal planes. Contrast-enhanced sequences were acquired following the administration of 6.7 cc of Gadavist. FINDINGS: There are no foci of restricted diffusion to suggest acute infarct. Note is made of a 5.3 x 3.7 cm focus of signal abnormality within the right frontotemporal region which corresponds to the abnormality on CT performed earlier today. This represents encephalomalacia. This demonstrates peripheral hyperintensity on the diffusion-weighted sequence which is hyperintense on the ADC map. Therefore, this represents T2 shine through. There is mild associated gyral enhancement. Ventricular system is unremarkable. Basal cisterns are patent. There are no extra-axial collections. White matter T2 hyperintense foci suggest moderate small vessel disease. There is no intracranial mass. IMPRESSION: 1. No acute intracranial findings. 2. 5.3 x 3.7 cm focus of signal abnormality within the right frontotemporal region which corresponds to the finding on head CT performed earlier today. This is consistent with a subacute to chronic right MCA territory infarct. No acute infarct. No acute hemorrhage. 3. No intracranial mass. ACT 112: Negative or not required by law. Electronically signed by: Steven Grewal M.D. 12/10/2024 3:11 PM KUB X-Ray 12/12/24 08:16 KUB HISTORY: retain residue, feeding tube, r/o SBO COMPARISON STUDY: 10/10/2024 FINDINGS: PEG tube is present. There is moderate retained stool. No bowel obstruction seen. Evaluation for free air is limited due to supine positioning. No gross free air seen. IMPRESSION: No acute findings seen. ACT 112: Negative or not required by law. The above report was generated using voice recognition software. It may contain grammatical, syntax or spelling errors. Electronically signed by: Mario Bingham M.D. 12/12/2024 11:21 AM Medications Administered Current Inpatient Medications Al Hydrox/Mg Hydrox/Simethicone (Aluminum/Magnesium Susp 30 Ml Udc) 15 ml PEG Q8H [facility]OLU Stop: 12/14/24 07:59 Last Admin: 12/13/24 08:54 Dose: 15 ml Albuterol (Albuterol Hfa 8 Gm Inhaler) 2 puffs INH QID PRN PRN Reason: Shortness Of Breath Or Wheezin Stop: 01/09/25 02:30 Aspirin (Aspirin 81 Mg Chew) 81 mg PEG DAILY TOLU Stop: 01/09/25 08:59 Last Admin: 12/10/24 08:12 Dose: 81 mg Atorvastatin Calcium (Atorvastatin 40 Mg Tab) 40 mg PEG DAILY TOLU Stop: 01/09/25 08:59 Last Admin: 12/13/24 08:50 Dose: 40 mg Dicyclomine HCl (Dicyclomine Hcl 10 Mg Cap) 10 mg PEG TID TOLU Stop: 01/09/25 08:59 Last Admin: 12/13/24 08:50 Dose: 10 mg Folic Acid (Folic Acid 1 Mg Tab) 1 mg PEG DAILY TOLU Stop: 01/09/25 08:59 Last Admin: 12/13/24 08:50 Dose: 1 mg Thiamine HCl 200 mg/ Sodium (Chloride) 52 mls @ 210 mls/hr IV QAM [facility] Stop: 01/09/25 08:59 Last Infusion: 12/13/24 10:35 Dose: Infused Pantoprazole Sodium 40 mg/ (Dextrose) 100 mls @ 20 mls/hr IV Q5H [facility] Stop: 01/10/25 10:59 Last Admin: 12/13/24 10:25 Dose: 8 mg/hr, 20 mls/hr Dextrose/Sodium Chloride (D5w And Nss) 1,000 mls @ 110 mls/hr IV .Q9H6M [facility] Stop: 12/14/24 08:29 Last Admin: 12/13/24 06:04 Dose: 110 mls/hr Lactobacillus Acidophilus (Lactobacillus Acidophilus 1 Gm Pack) 1 packet PEG DAILY [facility] Stop: 01/09/25 08:59 Last Admin: 12/13/24 08:50 Dose: 1 packet Lorazepam (Lorazepam 0.5 Mg Tab) 0.5 mg SL BID PRN PRN Reason: Anxiety Stop: 01/09/25 02:30 Metoprolol Tartrate (Metoprolol Tartrate 25 Mg Tab) 25 mg PEG BID [facility]U Stop: 01/09/25 08:59 Last Admin: 12/13/24 08:50 Dose: 25 mg Multivitamins/Minerals (Cerovite Adv Formula Tab) 1 tab PO QAM [facility] Stop: 01/12/25 10:59 Last Admin: 12/13/24 12:13 Dose: 1 tab Nutritional Formula (Nutren Liqd 2.0 1,000 Ml Bag) 250 ml PEG BID@1000,2000 [facility]; Protocol Stop: 12/13/24 20:00 Last Admin: 12/13/24 10:00 Dose: 25 ml Nutritional Formula (Nutren Liqd 2.0 1,000 Ml Bag) 250 ml PEG UD [facility]; Protocol Stop: 01/12/25 19:59 Olanzapine (Olanzapine 5 Mg Tablet) 15 mg PO QPM [facility] Stop: 01/09/25 20:59 Last Admin: 12/12/24 21:15 Dose: 15 mg Ondansetron HCl (Ondansetron Inj 2 Mg/Ml 2 Ml Vial) 4 mg IV Q6H PRN PRN Reason: Nausea Stop: 01/09/25 02:30 Last Admin: 12/12/24 21:14 Dose: 4 mg Sennosides (Sennosides 8.8 Mg/5 Ml Udc) 8.8 mg PEG DAILY [facility] Stop: 01/09/25 08:59 Last Admin: 12/13/24 08:49 Dose: 8.8 mg Sterile Water (Tube Feeding Water Flush) 120 ml GT 1999,2029 [facility] Stop: 01/12/25 19:59 Sucralfate (Sucralfate 1 Gm Tab) 1 gm PO NOW PRN PRN Reason: Heartburn Sucralfate (Sucralfate 1 Gm/10 Ml Udc) 1 gm PO QID@0700,1100,1600,2100 [facility] Stop: 01/12/25 10:59 Last Admin: 12/13/24 12:13 Dose: 1 gm Vitamin B Complex (Vitamin B Complex Tab) 1 tab PO QAM [facility] Stop: 01/12/25 10:59 Last Admin: 12/13/24 12:14 Dose: 1 tab PG Care Time/CCT Total # of Minutes Spent Total Time Spent with Patient: Total time spent is greater than 50% in coordination of care (as documented) at patient's floor/unit and/or counseling patient: C[place] [address] SUB INP/OBS CARE 2/35MIN Patient Type Established History Expanded Problem Focused Exam Expanded Problem Focused Medical Decision Making Low Complexity Diagnoses Lethargy R53.83 Leg pain, right M79.604 Counseling regarding advanced directives and goals of care Z71.89 Palliative care by specialist Z51.5
--- NOTE | 2024-12-13 17:16 | Gastroenterology Progress Note ---
Date of Service December 13, 2024 Assessment & Plan (1) Anemia: Plan: Will continue observation for now since it seems things have settled down. I will follow over the weekend. I am not certain feeding tube needs to be used since he is eating so well. Admission and Anticipated Discharge Date Admission Date: December 11, 2024 Subjective Seems much stronger today. He says he feels better. I had scheduled EGD today because of drop in H/H yesterday. He was fed so procedure cancelled. Physical Exam Constitutional: WD/WN, vitals as above + ill appearing Results & Data Vital Signs (Past 12 Hours) Vital Signs Temp Pulse Pulse Resp BP Pulse Ox O2 Del Method 12/13/24 16:36 88 18 122/63 98 Room Air 12/13/24 13:30 101 H 12/13/24 11:50 37.4 C 82 18 132/72 100 Room Air 12/13/24 08:00 79 12/13/24 07:51 36.2 C L 97 H 20 136/74 99 Room Air
[2024-12-13] MEDS ORDERED: NUTREN LIQD 2.0 1,000 ML BAG PEG SCH (20:00)
[2024-12-13] MEDS: TUBE FEEDING WATER FLUSH GT SCH (20:38)
[2024-12-13] MEDS: LORazepam 0.5 MG TAB SL PRN (20:38)
[2024-12-14] MEDS: ACETAMINOPHEN 500 MG TAB PO PRN (01:52)
[2024-12-14 10:46] LABS: Hematocrit (blood only) 22.9 % (42.0-52.0); Hemoglobin 7.5 g/dl (14.0-18.0); Mean Corpuscular Hemoglobin 29.0 pg (25.0-34.0); Mean Corpuscular Volume 88.4 fL (80.0-100.0); Platelet Count 221 K/uL (130-400); RDW Standard Deviation 53.6 fL (36.4-46.3); Red Blood Count 2.59 M/uL (4.70-6.10); White Blood Count 7.17 K/ul (4.8-10.8)
[2024-12-14 11:03] LABS: Alanine Aminotransferase 19.0 U/L (7-52); Albumin Globulin Ratio 0.8 (0.9-2); Alkaline Phosphatase 78.0 U/L (34-104); Anion Gap 4.0 (3-11); Bilirubin,Total 0.4 mg/dl (0.2-1.0); Blood Urea Nitrogen 17.0 mg/dl (6-23); Calcium 8.6 mg/dl (8.6-10.3); Carbon Dioxide 22.0 mmol/L (21-32); Chloride 112.0 mmol/L (98-107); Creatinine Clr Calc Pharmacy 88.8 ml/min; Globulin 3.4 gm/dl (2.5-4.0); Glucose 96.0 mg/dl (70-99(Fasting)); Potassium 4.2 mmol/L (3.5-5.1); Sodium 138.0 mmol/L (136-145); Total Protein 6.2 gm/dl (6.0-8.3)
[2024-12-14 11:24] LABS: Appearance Urine Clear (Clear); Glucose Urine UA Negative (Negative)
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
[2024-12-14] MEDS: ZIPRASIDONE 20 MG/ML SDV IM STA (14:06)
[2024-12-14] MEDS ORDERED: Nursing to Pharmacy Communication SCH (17:15)
[2024-12-15 07:53] LABS: Hematocrit (blood only) 24.6 % (42.0-52.0); Hemoglobin 7.9 g/dl (14.0-18.0); Mean Corpuscular Hemoglobin 28.4 pg (25.0-34.0); Mean Corpuscular Volume 88.5 fL (80.0-100.0); Platelet Count 266 K/uL (130-400); RDW Standard Deviation 53.1 fL (36.4-46.3); Red Blood Count 2.78 M/uL (4.70-6.10); White Blood Count 8.07 K/ul (4.8-10.8)
[2024-12-15] MEDS ORDERED: ENOXAPARIN 1 MG/KG SQ SCH (08:15)
[2024-12-15 08:31] LABS: Alanine Aminotransferase 18.0 U/L (7-52); Albumin Globulin Ratio 0.9 (0.9-2); Alkaline Phosphatase 89.0 U/L (34-104); Anion Gap 6.0 (3-11); Bilirubin,Total 0.4 mg/dl (0.2-1.0); Blood Urea Nitrogen 18.0 mg/dl (6-23); Calcium 8.7 mg/dl (8.6-10.3); Carbon Dioxide 23.0 mmol/L (21-32); Chloride 111.0 mmol/L (98-107); Creatinine Clr Calc Pharmacy 70.3 ml/min; Globulin 3.5 gm/dl (2.5-4.0); Glucose 89.0 mg/dl (70-99(Fasting)); Potassium 4.0 mmol/L (3.5-5.1); Sodium 140.0 mmol/L (136-145); Total Protein 6.5 gm/dl (6.0-8.3)
[2024-12-15] MEDS: ENOXAPARIN 80 MG/0.8 ML SYR SQ SCH (09:26)
--- NOTE | 2024-12-15 09:51 | Communication Note ---
Date of Service: December 15, 2024 H/H are holding steady. Will hold on EGD for now.
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
[2024-12-16 06:52] LABS: Hematocrit (blood only) 24.6 % (42.0-52.0); Hemoglobin 7.8 g/dl (14.0-18.0); Mean Corpuscular Hemoglobin 28.2 pg (25.0-34.0); Mean Corpuscular Volume 88.8 fL (80.0-100.0); Platelet Count 264 K/uL (130-400); RDW Standard Deviation 53.9 fL (36.4-46.3); Red Blood Count 2.77 M/uL (4.70-6.10); White Blood Count 7.91 K/ul (4.8-10.8)
[2024-12-16 07:14] LABS: Alanine Aminotransferase 15.0 U/L (7-52); Albumin Globulin Ratio 0.9 (0.9-2); Alkaline Phosphatase 89.0 U/L (34-104); Anion Gap 6.0 (3-11); Bilirubin,Total 0.5 mg/dl (0.2-1.0); Blood Urea Nitrogen 19.0 mg/dl (6-23); Calcium 8.7 mg/dl (8.6-10.3); Carbon Dioxide 23.0 mmol/L (21-32); Chloride 111.0 mmol/L (98-107); Creatinine Clr Calc Pharmacy 66.2 ml/min; Globulin 3.3 gm/dl (2.5-4.0); Glucose 92.0 mg/dl (70-99(Fasting)); Magnesium 1.8 mg/dl (1.7-2.4); Potassium 3.7 mmol/L (3.5-5.1); Sodium 140.0 mmol/L (136-145); Total Protein 6.3 gm/dl (6.0-8.3)
[2024-12-16] MEDS: ZINC SULFATE 220 MG CAPSULE PO SCH (10:08)
--- NOTE | 2024-12-16 16:31 | CT Scan Report ---
CT angiogram of the neck CT angiogram of the brain with contrast Provided History: Neuro deficit Comparison: None Technique: HEAD CT: Using multidetector thin collimation helical acquisition technique, axial, coronal and sagittal CT images from the skull base to the vertex were obtained without intravenous contrast. HEAD and NECK CTA: During rapid bolus intravenous injection of nonionic contrast material, axial images were obtained using thin collimation multidetector helical technique from the base of the neck through the of vertex of the head. This CT angiogram data was reconstructed at thin intervals with mild overlap. 3D reconstructions were obtained. The axial source images, multiplanar reformations, 3D reconstructions in both maximum intensity projection display and volume rendered models were reviewed. Dose reduction techniques were achieved by using automatic exposure control and/or adjustment of mA and/or kV according to patient size and/or use of iterative reconstruction technique. Findings: Evolving right MCA territory infarct appreciated. Head CTA demonstrates no aneurysm or stenosis of the major intracranial arteries. Neck CTA demonstrates mixed atherosclerotic disease throughout the carotid bulbs bilaterally. There is a short segment of approximately 50% stenosis of the proximal left ICA. No proximal right ICA stenosis. Bilaterally the distal internal carotid arteries appear patent. The origins of the great vessels from the aortic arch are patent. There is mild narrowing at the origins of the left vertebral artery. The remainder of the vertebral arteries appear patent. No mass is noted within the visualized portions of the cervical soft tissues or lung apices. Impression: 1. Head CTA demonstrates no aneurysm or stenosis of the major intracranial arteries, 2. Neck CTA demonstrates atherosclerotic disease of the carotid bulbs bilaterally, with a short segment of approximately 50% stenosis at the proximal left ICA. Distally the internal carotid arteries, as well as the vertebral arteries appear patent. Electronically signed by Chepe Moran 12-16-2024 4:31 PM
--- NOTE | 2024-12-16 16:31 | CT Scan Report ---
CT pulmonary angiogram with IV contrast History: AMS COMPARISON: None TECHNIQUE: CT angiography of the chest was performed without IV contrast followed by IV contrast, including 3D post processing CTA image reconstruction. Dose reduction techniques were achieved by using automatic exposure control and/or adjustment of mA and/or kV according to patient size and/or use of iterative reconstruction technique. FINDINGS: Diagnostic quality: Adequate There is no evidence for pulmonary embolism. The heart is enlarged. There is a mitral valve annuloplasty. Left chest wall single-lead AICD. There is no pericardial effusion. There are no abnormally enlarged hilar or mediastinal lymph nodes. The central tracheobronchial tree is clear. The lungs are clear. Small bilateral minimal interstitial pulmonary edema at the lung apices. Bibasilar subsegmental atelectasis. Pleural effusion. Limited visualized upper abdomen. No destructive osseous changes are seen. There are a few chronic appearing anterior right rib fractures partially seen. IMPRESSION: No evidence for pulmonary embolism. Small bilateral pleural effusions. Minimal interstitial pulmonary edema at the lung apices. Electronically signed by Chepe Moran 12-16-2024 4:31 PM
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
[2024-12-17 07:44] LABS: Alanine Aminotransferase 14.0 U/L (7-52); Albumin Globulin Ratio 0.9 (0.9-2); Alkaline Phosphatase 93.0 U/L (34-104); Anion Gap 8.0 (3-11); Bilirubin,Total 0.6 mg/dl (0.2-1.0); Blood Urea Nitrogen 17.0 mg/dl (6-23); Calcium 8.7 mg/dl (8.6-10.3); Carbon Dioxide 22.0 mmol/L (21-32); Chloride 108.0 mmol/L (98-107); Creatinine Clr Calc Pharmacy 70.3 ml/min; Globulin 3.5 gm/dl (2.5-4.0); Glucose 96.0 mg/dl (70-99(Fasting)); Magnesium 1.8 mg/dl (1.7-2.4); Potassium 3.5 mmol/L (3.5-5.1); Sodium 138.0 mmol/L (136-145); Total Protein 6.6 gm/dl (6.0-8.3)
[2024-12-17] MEDS: THIAMINE HCL 100 MG TAB PEG SCH (08:16)
[2024-12-17] MEDS ORDERED: ENOXAPARIN 1 MG/KG SQ SCH (09:45)
[2024-12-17] MEDS: ENOXAPARIN 80 MG/0.8 ML SYR SQ SCH (10:43)
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
[2024-12-18 07:39] LABS: Hematocrit (blood only) 26.9 % (42.0-52.0); Hemoglobin 8.9 g/dl (14.0-18.0); Mean Corpuscular Hemoglobin 29.5 pg (25.0-34.0); Mean Corpuscular Volume 89.1 fL (80.0-100.0); Platelet Count 318 K/uL (130-400); RDW Standard Deviation 53.9 fL (36.4-46.3); Red Blood Count 3.02 M/uL (4.70-6.10); White Blood Count 8.44 K/ul (4.8-10.8)
[2024-12-18 07:57] LABS: Alanine Aminotransferase 11.0 U/L (7-52); Albumin Globulin Ratio 0.8 (0.9-2); Alkaline Phosphatase 92.0 U/L (34-104); Anion Gap 8.0 (3-11); Bilirubin,Total 0.4 mg/dl (0.2-1.0); Blood Urea Nitrogen 26.0 mg/dl (6-23); Calcium 8.6 mg/dl (8.6-10.3); Carbon Dioxide 23.0 mmol/L (21-32); Chloride 108.0 mmol/L (98-107); Creatinine Clr Calc Pharmacy 48.8 ml/min; Globulin 3.7 gm/dl (2.5-4.0); Glucose 95.0 mg/dl (70-99(Fasting)); Magnesium 1.9 mg/dl (1.7-2.4); Potassium 3.8 mmol/L (3.5-5.1); Sodium 139.0 mmol/L (136-145); Total Protein 6.7 gm/dl (6.0-8.3)
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
--- NOTE | 2024-12-18 12:40 | Psychiatric Consultation ---
Date of Consultation December 18, 2024 Impression / Recommendations Impression Diagnostically seems that his agitation is likely a combination of recent encephalopathy/delirium and new cognitive deficits with behavioral changes and communication deficits from a significant hemorrhagic stroke. Unfortunately there are no known medications to cure or shorten the duration of delirium or agitation following a stroke; rather antipsychotics are used at times to help with sleep/appetite/psychomotor agitation and hallucinations if these symptoms are causing significant distress and/or interfering with acute safety. Duration of delirium varies broadly with persistent delirium (defined as lasting for weeks or months) occurring frequently with [id number]% of patients exhibiting some symptoms of delirium at 6 months after symptom onset, see:Rolando Kennedy., Bárbara Todd., Tereza Huggins.et al.Delirium.[facility] Rev Dis Primers6, 90 (2020). https://doi.org/10.1038/[email or web address]. Goal in neurocognitive deficits with behavioral disbruance is to avoid medication management of behaviors if possible by maximizing non-pharmacologic strategies for behavioral management. However, given his known history of agitation/aggression agree that currently antipsychotic as risk/benefit profile favors treatment. Note all antipsychotic medications carry black box warning for increased risk of all-cause mortality in setting of dementia. Overall, I spent a total of 60 minutes with this case including review of chart records, review of labwork, review of EKG QTc, direct evaluation of the patient at bedside, counseling the patient, discussion of the patient with the Nurse and with the hospitalist provider, discussion with the psychiatric liason during clinical rounds and documentation in the electronic health record. (1) Agitation: (2) CVA (cerebral vascular accident): (3) Chronic confusion: Plan -1-on-1 prn given level of agitation -start fluoxetine 20mg daily as there is data that SSRIs can reduce post-stroke anger-proneness -trazodone 50mg HS can be used if sleep issues persist despite olanzapine use -taper Valium and benzodiazepines to discontinuation as these can worsen confusion, increase fall risk (of which he was noted to have while at recent PCP visit and may have contributed to recent CVA). -discontinue Geodon -continue olanzapine 15mg QPM -if BP improves after benzodiazepines are discontinued then start propranolol 10mg BID and can titrate as tolerated (studies show this can be effective for agitation following CVA or TBI typically at doses of 40-60mg/day divided into BID-QID dosing) -if agitation persists: start Depakote DR 250mg BID, and can increase to 500mg BID after 2-3 days if tolerated and higher dose is needed -in future if further medication options are needed consider: amantadine -Continue with delirium prevention measures: raising blinds during the day, closing at night, frequent re-orientation, contact with family/friends, explaining procedures/nursing care measures prior to physical contact, correct any hearing and visual impairments -For behavioral emergency: olanzapine 5 mg IM x 1 (DO NOT exceed 10mg via IM sources per 24 hours, check EKG if IM dose required, NEVER co-administer with IM or IV benzodiazepines). Psych History Identifying Data Carlton Jose is a 69-year-old man with a past medical history including hyperlipidemia, depression with anxiety, current smoker, DVT, HAP, history of alcohol use disorder and intoxication, chronic systolic CHF, status post ICD, nonischemic cardiomyopathy, NSVT, atrial flutter, CAD, MRSA, mitral valve repair BPH with LUTS, with recent CVAs (hemorrhagic) with subsequent agitation in the setting of confusion and difficulty communicating. Psychiatry consulted for recommendations for agitation. Chief Complaint "good". History of Present Illness Ed was admitted to [facility] in October 2024 for complicated alcohol withdrawal and then while at a snf care facility had an MCA hemorrhagic stroke resulting in significant communication and cognitive deficits. He was hospitalized at [facility] in November and seen by psychiatry consult service for agitation where he was on Seroquel (25mg qAM and 50mg HS) and lorazepam (1mg TID) which were ineffective. He was subsequently switched to Geodon and then switched to olanzapine. He has experienced recent episodes of agitation with attempting to spit and bite. Per 1-on-1 and RN he did very well overnight and has been very pleasant today but sleeping a lot and very hungry. On my assessment he is eating lunch. Garbled speech but reports his food is "good". Doesn't respond to other questions. Currently prescribed: -olanzapine 15mg QPM -Valium 5mg IM BID -Geodon 60mg BID Allergies Allergy/AdvReac Type Severity Reaction Status Date / Time oxycodone [From Percodan] AdvReac Mild Dizziness Verified 12/09/24 23:47 Home Medications Medication Instructions Recorded Confirmed Type albuterol sulfate 90 mcg/actuation 2 puff inhalation QID PRN 09/29/24 12/09/24 History aerosol inhaler Shortness Of Breath Or Wheezing Lactobacillus rhamnosus GG 10 1 cap feeding tube DAILY 12/06/24 12/09/24 History billion cell capsule apixaban 5 mg tablet (Eliquis) 5 mg feeding tube BID 12/06/24 12/09/24 History aspirin 81 mg capsule 81 mg feeding tube DAILY 12/06/24 12/09/24 History atorvastatin 40 mg tablet 40 mg feeding tube DAILY 12/06/24 12/09/24 History coenzyme Q10 100 mg capsule (Co 100 mg PO DAILY 12/06/24 12/09/24 History Q-10) dicyclomine 10 mg capsule 10 mg feeding tube TID 12/06/24 12/09/24 History folic acid 1 mg tablet 1 mg feeding tube DAILY 12/06/24 12/09/24 History lactose-reduced food with fiber 0 ea feeding tube QID 12/06/24 12/09/24 History 0.06 gram-1.5 kcal/mL oral liquid (Jevity 1.5 Madhav) lorazepam 0.5 mg tablet (Ativan) 0.5 mg feeding tube BID PRN Anxiety 12/06/24 12/09/24 History olanzapine 15 mg tablet 15 mg feeding tube QPM 12/06/24 12/09/24 History sennosides 8.8 mg/5 mL oral syrup 5 ml feeding tube DAILY 12/06/24 12/09/24 History (senna) thiamine HCl (vitamin B1) 100 mg 100 mg feeding tube QAM 12/06/24 12/09/24 History tablet lansoprazole 30 mg capsule,delayed 30 mg PO BID #180 caps 12/09/24 12/09/24 Rx release metoprolol succinate 50 mg 50 mg PO DAILY #90 tabs 12/09/24 12/09/24 Rx tablet,extended release 24 hr potassium chloride 20 mEq 20 meq PO DAILY #100 tabs 12/09/24 12/09/24 Rx tablet,extended release Patient History Medical History Tracheostomy, acute management Partial thickness burn of ankle Second degree burn of ankle Alcohol withdrawal delirium Acute systolic heart failure Acute hypoxic respiratory failure Acute airway obstruction Acute alcohol intoxication Methicillin susceptible Staphylococcus aureus infection Abdominal wall mass of suprapubic region Alcohol intoxication Fracture of right tibial plateau (~07/05/24) Acute on chronic systolic heart failure Asthma Mitral regurgitation Surgical History History of mitral valve repair Hx of heart surgery History of back surgery History of ankle surgery Family History Brother Diabetes Mother Cancer Social History Smoking Status: Former smoker Tobacco Type: Cigarettes Age Started Using Tobacco: 43; Age Quit Using Tobacco: 69; packs per day: 0.5; Cigarettes Per Day: 1; Do You Dip or Chew Tobacco: No; Hx Alcohol Use: No Hx Substance Use: No Preferred Language: Omani Communication Ability: Effective Communication Ability Comment: pt states he can read enough to get by but is not a very good reader Worm Sorter Required: No Beliefs That Will Affect Care: None marital status: Legally Current Living Situation: Family Current Living Situation Comment: Daughter 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 Feels Safe at Home: Yes Safety Concerns: Feels Safe At This Time Assistive Devices: Walker Physical Exam Vital Signs (Past 24 Hours): Last Vital Signs Temp 36.7 C 12/18/24 11:04 Pulse 97 H 12/18/24 11:04 Resp 18 12/18/24 11:04 BP 91/52 L 12/18/24 11:04 Pulse Ox 97 12/18/24 11:04 O2 Del Method Room Air 12/18/24 11:04 Results & Data (PSY) Medications Administered Acetaminophen (Acetaminophen 500 Mg Tab) 1,000 mg PO BID PRN PRN Reason: Pain or Fever Stop: 01/13/25 01:37 Last Admin: 12/14/24 01:52 Dose: 1,000 mg Documented By: NAM Aspirin (Aspirin 81 Mg Chew) 81 mg PEG DAILY [facility] Stop: 01/09/25 08:59 Last Admin: 12/10/24 08:12 Dose: 81 mg Documented By: YUDI Atorvastatin Calcium (Atorvastatin 40 Mg Tab) 40 mg PEG DAILY [facility] Stop: 01/09/25 08:59 Last Admin: 12/18/24 08:52 Dose: 40 mg Documented By: Admin: 12/17/24 08:14 Dose: 40 mg Documented By: Admin: 12/16/24 10:09 Dose: 40 mg Documented By: Admin: 12/15/24 09:27 Dose: 40 mg Documented By: Admin: 12/14/24 08:48 Dose: Not Given Documented By: Admin: 12/13/24 08:50 Dose: 40 mg Documented By: Admin: 12/12/24 11:57 Dose: 40 mg Documented By: Admin: 12/11/24 10:24 Dose: Not Given Documented By: Admin: 12/10/24 08:12 Dose: 40 mg Documented By: YUDI Diazepam (Diazepam Inj 5 Mg/Ml 2 Ml Carp) 5 mg IV Q6H TOLU Stop: 01/13/25 08:29 Last Admin: 12/14/24 12:52 Dose: Not Given Documented By: COLEMAN Diazepam (Diazepam Inj 5 Mg/Ml 2 Ml Carp) 5 mg IM BID TOLU Stop: 01/13/25 13:59 Last Admin: 12/18/24 09:27 Dose: Not Given Documented By: Admin: 12/17/24 19:37 Dose: 5 mg Documented By: Admin: 12/17/24 08:16 Dose: Not Given Documented By: Admin: 12/16/24 20:06 Dose: 5 mg Documented By: Admin: 12/16/24 10:05 Dose: Not Given Documented By: Admin: 12/15/24 20:36 Dose: 5 mg Documented By: Admin: 12/15/24 09:52 Dose: 5 mg Documented By: Admin: 12/14/24 21:43 Dose: 5 mg Documented By: Admin: 12/14/24 14:21 Dose: Not Given Documented By: COLEMAN Dicyclomine HCl (Dicyclomine Hcl 10 Mg Cap) 10 mg PEG TID TOLU Stop: 01/09/25 08:59 Last Admin: 12/18/24 09:14 Dose: Not Given Documented By: Admin: 12/17/24 19:38 Dose: 10 mg Documented By: Admin: 12/17/24 14:48 Dose: 10 mg Documented By: Admin: 12/17/24 08:14 Dose: 10 mg Documented By: Admin: 12/16/24 20:07 Dose: 10 mg Documented By: Admin: 12/16/24 13:36 Dose: 10 mg Documented By: Admin: 12/16/24 10:08 Dose: 10 mg Documented By: Admin: 12/15/24 20:22 Dose: 10 mg Documented By: Admin: 12/15/24 16:07 Dose: Not Given Documented By: Admin: 12/15/24 09:28 Dose: 10 mg Documented By: Admin: 12/14/24 21:42 Dose: 10 mg Documented By: Admin: 12/14/24 15:54 Dose: 10 mg Documented By: Admin: 12/14/24 08:48 Dose: Not Given Documented By: Admin: 12/13/24 20:43 Dose: 10 mg Documented By: Admin: 12/13/24 14:12 Dose: 10 mg Documented By: Admin: 12/13/24 08:50 Dose: 10 mg Documented By: Admin: 12/12/24 21:16 Dose: 10 mg Documented By: Admin: 12/12/24 16:53 Dose: 10 mg Documented By: Admin: 12/12/24 11:57 Dose: 10 mg Documented By: Admin: 12/11/24 22:31 Dose: 10 mg Documented By: Admin: 12/11/24 13:35 Dose: 10 mg Documented By: Admin: 12/11/24 09:52 Dose: 10 mg Documented By: Admin: 12/10/24 21:27 Dose: 10 mg Documented By: Admin: 12/10/24 14:57 Dose: 10 mg Documented By: Admin: 12/10/24 08:13 Dose: 10 mg Documented By: YUDI Enoxaparin Sodium (Enoxaparin 80 Mg/0.8 Ml Syr) 70 mg SQ Q12 TOLU Stop: 01/16/25 10:29 Last Admin: 12/18/24 08:52 Dose: 70 mg Documented By: Admin: 12/17/24 19:34 Dose: 70 mg Documented By: Admin: 12/17/24 10:43 Dose: 70 mg Documented By: SUREKHA Folic Acid (Folic Acid 1 Mg Tab) 1 mg PEG DAILY TOLU Stop: 01/09/25 08:59 Last Admin: 12/18/24 08:52 Dose: 1 mg Documented By: Admin: 12/17/24 08:17 Dose: 1 mg Documented By: Admin: 12/16/24 10:08 Dose: 1 mg Documented By: Admin: 12/15/24 09:27 Dose: 1 mg Documented By: Admin: 12/14/24 08:48 Dose: Not Given Documented By: Admin: 12/13/24 08:50 Dose: 1 mg Documented By: Admin: 12/12/24 11:57 Dose: 1 mg Documented By: Admin: 12/11/24 09:52 Dose: 1 mg Documented By: Admin: 12/10/24 08:13 Dose: 1 mg Documented By: YUDI Pantoprazole Sodium 40 mg/ (Dextrose) 100 mls @ 20 mls/hr IV Q5H TOLU Stop: 01/10/25 10:59 Last Admin: 12/18/24 08:51 Dose: 8 mg/hr, 20 mls/hr Documented By: Infusion: 12/18/24 08:51 Dose: Infused Documented By: Admin: 12/18/24 04:34 Dose: 8 mg/hr, 20 mls/hr Documented By: Infusion: 12/18/24 04:03 Dose: Infused Documented By: Admin: 12/17/24 23:03 Dose: 8 mg/hr, 20 mls/hr Documented By: Infusion: 12/17/24 23:00 Dose: Infused Documented By: Admin: 12/17/24 18:00 Dose: 8 mg/hr, 20 mls/hr Documented By: Infusion: 12/17/24 17:58 Dose: Infused Documented By: Admin: 12/17/24 12:58 Dose: 8 mg/hr, 20 mls/hr Documented By: Infusion: 12/17/24 12:58 Dose: Infused Documented By: Admin: 12/17/24 08:11 Dose: 8 mg/hr, 20 mls/hr Documented By: Infusion: 12/17/24 07:59 Dose: Infused Documented By: Admin: 12/17/24 02:59 Dose: 8 mg/hr, 20 mls/hr Documented By: Infusion: 12/17/24 02:57 Dose: Infused Documented By: Admin: 12/16/24 21:57 Dose: 8 mg/hr, 20 mls/hr Documented By: Infusion: 12/16/24 21:57 Dose: Infused Documented By: Admin: 12/16/24 17:24 Dose: 8 mg/hr, 20 mls/hr Documented By: Infusion: 12/16/24 16:29 Dose: Infused Documented By: Admin: 12/16/24 11:29 Dose: 8 mg/hr, 20 mls/hr Documented By: Infusion: 12/16/24 11:19 Dose: Infused Documented By: Admin: 12/16/24 06:19 Dose: 8 mg/hr, 20 mls/hr Documented By: Infusion: 12/16/24 06:19 Dose: Infused Documented By: Admin: 12/16/24 01:34 Dose: 8 mg/hr, 20 mls/hr Documented By: Infusion: 12/16/24 01:30 Dose: Infused Documented By: Admin: 12/15/24 20:30 Dose: 8 mg/hr, 20 mls/hr Documented By: Infusion: 12/15/24 20:30 Dose: Infused Documented By: Admin: 12/15/24 16:07 Dose: 8 mg/hr, 20 mls/hr Documented By: Infusion: 12/15/24 14:28 Dose: Infused Documented By: Admin: 12/15/24 09:28 Dose: 8 mg/hr, 20 mls/hr Documented By: Infusion: 12/15/24 09:28 Dose: Infused Documented By: Admin: 12/15/24 05:15 Dose: 8 mg/hr, 20 mls/hr Documented By: Infusion: 12/15/24 04:42 Dose: Infused Documented By: Infusion: 12/15/24 03:50 Dose: 8 mg/hr, 20 mls/hr Documented By: Infusion: 12/15/24 03:10 Dose: 0 mg/hr, 0 mls/hr Documented By: Admin: 12/14/24 23:02 Dose: 8 mg/hr, 20 mls/hr Documented By: Infusion: 12/14/24 23:02 Dose: Infused Documented By: Admin: 12/14/24 18:27 Dose: 8 mg/hr, 20 mls/hr Documented By: Infusion: 12/14/24 18:27 Dose: Infused Documented By: Admin: 12/14/24 14:11 Dose: 8 mg/hr, 20 mls/hr Documented By: Infusion: 12/14/24 14:06 Dose: Infused Documented By: Infusion: 12/14/24 10:57 Dose: 8 mg/hr, 20 mls/hr Documented By: Infusion: 12/14/24 09:03 Dose: 0 mg/hr, 0 mls/hr Documented By: Admin: 12/14/24 07:11 Dose: 8 mg/hr, 20 mls/hr Documented By: Infusion: 12/14/24 06:52 Dose: Infused Documented By: Admin: 12/14/24 01:52 Dose: 8 mg/hr, 20 mls/hr Documented By: Infusion: 12/14/24 01:47 Dose: Infused Documented By: Admin: 12/13/24 20:47 Dose: 8 mg/hr, 20 mls/hr Documented By: Infusion: 12/13/24 20:27 Dose: Infused Documented By: Admin: 12/13/24 15:27 Dose: 8 mg/hr, 20 mls/hr Documented By: Infusion: 12/13/24 15:25 Dose: Infused Documented By: Admin: 12/13/24 10:25 Dose: 8 mg/hr, 20 mls/hr Documented By: Infusion: 12/13/24 10:25 Dose: Infused Documented By: Admin: 12/13/24 06:05 Dose: 8 mg/hr, 20 mls/hr Documented By: Infusion: 12/13/24 06:05 Dose: Infused Documented By: Admin: 12/13/24 02:10 Dose: 8 mg/hr, 20 mls/hr Documented By: Infusion: 12/13/24 01:45 Dose: Infused Documented By: Admin: 12/12/24 20:45 Dose: 8 mg/hr, 20 mls/hr Documented By: Infusion: 12/12/24 20:45 Dose: Infused Documented By: Admin: 12/12/24 16:52 Dose: 8 mg/hr, 20 mls/hr Documented By: Infusion: 12/12/24 15:02 Dose: Infused Documented By: Admin: 12/12/24 10:02 Dose: 8 mg/hr, 20 mls/hr Documented By: Infusion: 12/12/24 08:24 Dose: Infused Documented By: Admin: 12/12/24 03:24 Dose: 8 mg/hr, 20 mls/hr Documented By: Infusion: 12/12/24 03:13 Dose: Infused Documented By: Admin: 12/11/24 22:13 Dose: 8 mg/hr, 20 mls/hr Documented By: Infusion: 12/11/24 21:56 Dose: Infused Documented By: Admin: 12/11/24 16:56 Dose: 8 mg/hr, 20 mls/hr Documented By: Infusion: 12/11/24 16:49 Dose: Infused Documented By: Admin: 12/11/24 11:49 Dose: 8 mg/hr, 20 mls/hr Documented By: VINNIE Lactobacillus Acidophilus (Lactobacillus Acidophilus 1 Gm Pack) 1 packet PEG DAILY TOLU Stop: 01/09/25 08:59 Last Admin: 12/18/24 08:52 Dose: 1 packet Documented By: Admin: 12/17/24 08:13 Dose: 1 packet Documented By: Admin: 12/16/24 10:01 Dose: Not Given Documented By: Admin: 12/15/24 09:28 Dose: 1 packet Documented By: Admin: 12/14/24 08:49 Dose: Not Given Documented By: Admin: 12/13/24 08:50 Dose: 1 packet Documented By: Admin: 12/12/24 11:57 Dose: 1 packet Documented By: Admin: 12/11/24 09:52 Dose: 1 packet Documented By: Admin: 12/10/24 08:13 Dose: 1 packet Documented By: YUDI Lorazepam (Lorazepam 0.5 Mg Tab) 0.5 mg SL BID PRN PRN Reason: Anxiety Stop: 01/09/25 02:30 Last Admin: 12/16/24 20:07 Dose: 0.5 mg Documented By: Admin: 12/16/24 03:02 Dose: 0.5 mg Documented By: Admin: 12/13/24 20:38 Dose: 0.5 mg Documented By: NAM Metoprolol Tartrate (Metoprolol Tartrate 25 Mg Tab) 25 mg PEG BID TOLU Stop: 01/09/25 08:59 Last Admin: 12/18/24 08:52 Dose: 25 mg Documented By: Admin: 12/17/24 19:39 Dose: 25 mg Documented By: Admin: 12/17/24 08:14 Dose: 25 mg Documented By: Admin: 12/16/24 20:07 Dose: 25 mg Documented By: Admin: 12/16/24 10:08 Dose: 25 mg Documented By: Admin: 12/15/24 20:22 Dose: 25 mg Documented By: Admin: 12/15/24 09:28 Dose: 25 mg Documented By: Admin: 12/14/24 21:43 Dose: 25 mg Documented By: Admin: 12/14/24 08:49 Dose: Not Given Documented By: Admin: 12/13/24 20:43 Dose: 25 mg Documented By: Admin: 12/13/24 08:50 Dose: 25 mg Documented By: Admin: 12/12/24 21:16 Dose: 25 mg Documented By: Admin: 12/12/24 11:57 Dose: 25 mg Documented By: Admin: 12/11/24 22:31 Dose: 25 mg Documented By: Admin: 12/11/24 09:53 Dose: Not Given Documented By: Admin: 12/10/24 21:28 Dose: 25 mg Documented By: Admin: 12/10/24 08:12 Dose: 25 mg Documented By: YUDI Multivitamins/Minerals (Cerovite Adv Formula Tab) 1 tab PO QAM TOLU Stop: 01/12/25 10:59 Last Admin: 12/18/24 08:54 Dose: 1 tab Documented By: Admin: 12/17/24 08:13 Dose: 1 tab Documented By: Admin: 12/16/24 10:08 Dose: 1 tab Documented By: Admin: 12/15/24 09:27 Dose: 1 tab Documented By: Admin: 12/14/24 08:49 Dose: Not Given Documented By: Admin: 12/13/24 12:13 Dose: 1 tab Documented By: KATHY Olanzapine (Olanzapine 5 Mg Tablet) 15 mg PO QPM TOLU Stop: 01/09/25 20:59 Last Admin: 12/17/24 19:33 Dose: 15 mg Documented By: Admin: 12/16/24 20:07 Dose: 15 mg Documented By: Admin: 12/15/24 20:22 Dose: 15 mg Documented By: Admin: 12/14/24 21:42 Dose: 15 mg Documented By: Admin: 12/13/24 20:42 Dose: 15 mg Documented By: Admin: 12/12/24 21:15 Dose: 15 mg Documented By: Admin: 12/11/24 22:31 Dose: 15 mg Documented By: Admin: 12/10/24 21:28 Dose: 15 mg Documented By: GERALD Ondansetron HCl (Ondansetron Inj 2 Mg/Ml 2 Ml Vial) 4 mg IV Q6H PRN PRN Reason: Nausea Stop: 01/09/25 02:30 Last Admin: 12/12/24 21:14 Dose: 4 mg Documented By: Admin: 12/10/24 12:02 Dose: 4 mg Documented By: YUDI Sennosides (Sennosides 8.8 Mg/5 Ml Udc) 8.8 mg PEG DAILY TOLU Stop: 01/09/25 08:59 Last Admin: 12/18/24 09:14 Dose: Not Given Documented By: Admin: 12/17/24 08:13 Dose: 8.8 mg Documented By: Admin: 12/16/24 10:09 Dose: 8.8 mg Documented By: Admin: 12/15/24 09:28 Dose: 8.8 mg Documented By: Admin: 12/14/24 08:49 Dose: Not Given Documented By: Admin: 12/13/24 08:49 Dose: 8.8 mg Documented By: Admin: 12/12/24 11:57 Dose: 8.8 mg Documented By: Admin: 12/11/24 09:58 Dose: 8.8 mg Documented By: Admin: 12/10/24 08:12 Dose: 8.8 mg Documented By: YUDI Sucralfate (Sucralfate 1 Gm/10 Ml Udc) 1 gm PO QID@0700,1100,1600,2100 TOLU Stop: 01/12/25 10:59 Last Admin: 12/18/24 11:44 Dose: 1 gm Documented By: Admin: 12/18/24 08:53 Dose: 1 gm Documented By: Admin: 12/17/24 19:37 Dose: 1 gm Documented By: Admin: 12/17/24 14:48 Dose: 1 gm Documented By: Admin: 12/17/24 10:42 Dose: 1 gm Documented By: Admin: 12/17/24 08:14 Dose: 1 gm Documented By: Admin: 12/16/24 20:07 Dose: 1 gm Documented By: Admin: 12/16/24 17:06 Dose: 1 gm Documented By: Admin: 12/16/24 11:30 Dose: 1 gm Documented By: Admin: 12/16/24 10:07 Dose: 1 gm Documented By: Admin: 12/15/24 20:22 Dose: 1 gm Documented By: Admin: 12/15/24 16:07 Dose: Not Given Documented By: Admin: 12/15/24 11:38 Dose: 1 gm Documented By: Admin: 12/15/24 06:35 Dose: Not Given Documented By: Admin: 12/14/24 21:43 Dose: 1 gm Documented By: Admin: 12/14/24 15:54 Dose: 1 gm Documented By: Admin: 12/14/24 11:46 Dose: 1 gm Documented By: Admin: 12/14/24 06:46 Dose: Not Given Documented By: Admin: 12/13/24 20:40 Dose: 1 gm Documented By: Admin: 12/13/24 15:29 Dose: 1 gm Documented By: Admin: 12/13/24 12:13 Dose: 1 gm Documented By: Thiamine HCl (Thiamine Hcl 100 Mg Tab) 200 mg PEG DAILY TOLU Stop: 01/16/25 08:59 Last Admin: 12/18/24 08:52 Dose: 200 mg Documented By: Admin: 12/17/24 08:16 Dose: 200 mg Documented By: SUREKHA Vitamin B Complex (Vitamin B Complex Tab) 1 tab PO QA TLOU Stop: 01/12/25 10:59 Last Admin: 12/18/24 08:52 Dose: 1 tab Documented By: Admin: 12/17/24 08:13 Dose: 1 tab Documented By: Admin: 12/16/24 10:08 Dose: 1 tab Documented By: Admin: 12/15/24 09:27 Dose: 1 tab Documented By: Admin: 12/14/24 08:49 Dose: Not Given Documented By: Admin: 12/13/24 12:14 Dose: 1 tab Documented By: Zinc Sulfate (Zinc Sulfate 220 Mg Capsule) [facility] [place]: 01/15/25 08:59 Last Admin: 12/18/24 08:52 Dose: 220 mg Documented By: Admin: 12/17/24 08:14 Dose: 220 mg Documented By: Admin: 12/16/24 10:08 Dose: 220 mg Documented By: SUREKHA Ziprasidone (Ziprasidone Hcl 20 Mg Cap) 60 mg PO BID [facility] Stop: 01/14/25 20:59 Last Admin: 12/18/24 08:54 Dose: 60 mg Documented By: Admin: 12/17/24 19:35 Dose: 60 mg Documented By: Admin: 12/17/24 08:15 Dose: 60 mg Documented By: Admin: 12/16/24 20:07 Dose: 60 mg Documented By: Admin: 12/16/24 10:05 Dose: Not Given Documented By: Admin: 12/15/24 20:21 Dose: 60 mg Documented By: MAHAD Coding Level of Care Code 08208 IN/OBS CONSULT LVL 4,60M Diagnoses Agitation R45.1 CVA (cerebral vascular accident) I63.9 Chronic confusion R41.0
[2024-12-19] MEDS ORDERED: BISMUTH SUBSALICYLATE SUSP PO PRN (01:49)
[2024-12-19 02:47] LABS: Cdiff Toxin B Gene (2yr or >) Negative Cdiff Gene (Neg)
[2024-12-19 06:58] LABS: Hematocrit (blood only) 25.8 % (42.0-52.0); Hemoglobin 8.3 g/dl (14.0-18.0); Mean Corpuscular Hemoglobin 29.2 pg (25.0-34.0); Mean Corpuscular Volume 90.8 fL (80.0-100.0); Platelet Count 339 K/uL (130-400); RDW Standard Deviation 54.7 fL (36.4-46.3); Red Blood Count 2.84 M/uL (4.70-6.10); White Blood Count 9.58 K/ul (4.8-10.8)
--- NOTE | 2024-12-19 09:29 | Hospitalist Progress Note ---
Date of Service December 19, 2024 Assessment & Plan (1) CVA (cerebral vascular accident): Plan: CT show ill-defined hypodense area noted involving the right frontal parietal lobe cortex, subcortical and periventricular white matter. This is the same area that is noted on report from outside MRI 10/31 evolving right MCA CVA, and CT scan 11/06/2024 noting hemorrhagic conversion of right MCA stroke. brain MRI completed on 12/10/[address] Maribeth lawrence; explained this is chronic finding (2) Agitation: Plan: Post CVA dementia medications adjusted Valium tapered Zyprexa fluoxetine (3) Atrial flutter: Plan: on lovenox Q12 (4) Acute alcohol intoxication delirium with moderate or severe use disorder: Plan: Continue thiamine, folic acid, olanzapine Plan The patient is a 69-year-old male with a past medical history including hyperlipidemia, depression with anxiety, current smoker, DVT, HAP, history of alcohol use disorder and intoxication, chronic systolic CHF, status post ICD, nonischemic cardiomyopathy, NSVT, atrial flutter, CAD, MRSA, mitral valve repair BPH with LUTS who was most recently admitted to [facility] from 09/29- 10/11/2024, where he was initially admitted to the PCU, and then transferred to the ICU for alcohol withdrawal, and acute agitated delirium, acute hypoxic respiratory failure and HAP. He was then discharged to an LTAC. The patient was transferred from LTAC to [facility] on 11/04/24 with complaint of coffee-ground emesis which had started earlier in the morning. CT scan in the ED showed findings concerning for a suba cute infarct versus hemorrhagic conversion in the right frontal lobe. Neurosurgery was consulted and was advised to admit under hospitalist service they are. The patient was reported to have had a fall on 10/18/2024. He previously had an MRI on 10/30/2024, which revealed a right MCA CVA. On 11/06/2024, neurology recommended holding Eliquis for 7 to 10 days, and that his follow-up CT of the head should be completed prior to restarting Eliquis, and then get a repeat scan 48 hours after restarting. He underwent an EGD on 11/14/2024 which showed normal esophagus, stomach, duodenum and second portion of duodenum. An endoscopically removal PEG placement was successfully completed. Upon discharge there, the patient has been living with his daughter. The patient was brought to the emergency department at [facility] today, due to his daughter's concerns that she could no longer care for him at home. Disposition: Pt will need SNF placement Admission and Anticipated Discharge Date Admission Date: December 11, 2024 Subjective Pt alert, awake and responsive this am. No agitation last night. Review of Systems Review of Systems: CONST: Negative for fever, body aches and chills. HENT: Negative for neck pain/stiffness, headache, congestion, sore throat, swelling. EYES: Negative for discharge/pain or vision changes. RESP: Negative for cough/hemoptysis and shortness of breath. CV: Negative chest pain, difficulty breathing, palpitations. ABD: Negative pain, nausea, vomiting. : Negative increase frequency, dysuria, blood in urine or stool. MUSC: Negative for muscle aches, edema. SKIN: Negative rash, lesions/sores. NEURO: Negative headache, dizziness, weakness. Physical Exam Physical Exam: GENERAL APPEARANCE NAD, activity normal for age, well developed/ well nourished, no cyanosis, pallor, or diaphoresis. EYES lids/conjunctiva normal. EARS/NOSE/THROAT Mucous membranes moist, nares normal, lips/teeth normal uvula midline without oral pharyngeal erythema, exudate or swelling TMs normal bilaterally. No lymphangitis/lymphedema. HEAD/NECK normocephalic atraumatic, no facial trauma, neck is supple. RESPIRATORY respiratory effort normal, speaks in full sentences, no tripod position, no accessory muscle use. Lungs clear to auscultation without rhonchi, wheezes, rales CARDIAC Regular rate and rhythm, no edema. ABDOMINAL Soft, ND/NT. No evidence of fluid wave. No pulsatile masses on exam, rebound tenderness, Logan sign or pain over Mcburney's point. MUSCLES/EXTREMITIES No abnormal range of motion, no swelling. SKIN Warm, pink and dry. No rashes, dermatoses, petechiae or lesions. NEUROLOGICAL Speech is clear and appropriate. Normal level of consciousness. Gait and coordination are normal. 5/5 strength in all extremities. PSYCH Normal mood and affect. Judgement/competence is appropriate Results & Data Results & Data Vital Signs (Past 12 Hours) Vital Signs Temp Pulse Pulse Resp BP Pulse Ox O2 Del Method 12/19/24 07:11 36.6 C 78 18 107/60 97 Room Air 12/19/24 02:33 36.6 C 74 18 102/65 94 Room Air 12/18/24 23:00 Room Air 12/18/24 22:31 36.7 C 82 18 112/70 95 Room Air 12/18/24 21:45 79 PG Care Time/CCT Total # of Minutes Spent Total Time Spent with Patient: Total time spent is greater than 50% in coordination of care (as documented) at patient's floor/unit and/or counseling patient: Coding Level of Care Code 22681 SUB INP/OBS CARE 235MIN Diagnoses CVA (cerebral vascular accident) I63.9 Agitation R45.1 Atrial flutter I48.92 Acute alcohol intoxication delirium with moderate or severe use disorder F10.221
--- NOTE | 2024-12-19 16:17 | Electrocardiogram Report ---
Test Reason : Blood Pressure : */* mmHG Vent. Rate : 111 BPM Atrial Rate : 111 BPM P-R Int : 150 ms QRS Dur : 82 ms QT Int : 346 ms P-R-T Axes : 65 30 44 degrees QTcB Int : 470 ms Poor data quality, interpretation may be adversely affected Sinus tachycardia with Premature atrial complexes Otherwise normal ECG When compared with ECG of 09-Dec-2024 23:33, [place] interval has decreased Criteria for Inferior infarct are no longer Present T wave inversion no longer evident in Inferior leads Confirmed by Saad Cruz ([id number]) on 12/19/2024 4:17:12 PM Referred By: REFERRED SELF Confirmed By: Saad Cruz
[2024-12-20 06:28] LABS: Hematocrit (blood only) 25.2 % (42.0-52.0); Hemoglobin 7.9 g/dl (14.0-18.0); Mean Corpuscular Hemoglobin 28.1 pg (25.0-34.0); Mean Corpuscular Volume 89.7 fL (80.0-100.0); Platelet Count 330 K/uL (130-400); RDW Standard Deviation 53.0 fL (36.4-46.3); Red Blood Count 2.81 M/uL (4.70-6.10); White Blood Count 9.27 K/ul (4.8-10.8)
--- NOTE | 2024-12-20 09:35 | Hospitalist Progress Note ---
Date of Service December 20, 2024 Assessment & Plan (1) CVA (cerebral vascular accident): Plan: CT show ill-defined hypodense area noted involving the right frontal parietal lobe cortex, subcortical and periventricular white matter. This is the same area that is noted on report from outside MRI 10/31 evolving right MCA CVA, and CT scan 11/06/2024 noting hemorrhagic conversion of right MCA stroke. brain MRI completed on 12/10/[address] Maribeth lawrence; explained this is chronic finding (2) Agitation: Plan: Post CVA dementia medications adjusted Valium tapered Zyprexa fluoxetine (3) Atrial flutter: Plan: on lovenox Q12 (4) Acute alcohol intoxication delirium with moderate or severe use disorder: Plan: Continue thiamine, folic acid, olanzapine Plan The patient is a 69-year-old male with a past medical history including hyperlipidemia, depression with anxiety, current smoker, DVT, HAP, history of alcohol use disorder and intoxication, chronic systolic CHF, status post ICD, nonischemic cardiomyopathy, NSVT, atrial flutter, CAD, MRSA, mitral valve repair BPH with LUTS who was most recently admitted to [facility] from 09/29- 10/11/2024, where he was initially admitted to the PCU, and then transferred to the ICU for alcohol withdrawal, and acute agitated delirium, acute hypoxic respiratory failure and HAP. He was then discharged to an LTAC. The patient was transferred from LTAC to [facility] on 11/04/24 with complaint of coffee-ground emesis which had started earlier in the morning. CT scan in the ED showed findings concerning for a suba cute infarct versus hemorrhagic conversion in the right frontal lobe. Neurosurgery was consulted and was advised to admit under hospitalist service they are. The patient was reported to have had a fall on 10/18/2024. He previously had an MRI on 10/30/2024, which revealed a right MCA CVA. On 11/06/2024, neurology recommended holding Eliquis for 7 to 10 days, and that his follow-up CT of the head should be completed prior to restarting Eliquis, and then get a repeat scan 48 hours after restarting. He underwent an EGD on 11/14/2024 which showed normal esophagus, stomach, duodenum and second portion of duodenum. An endoscopically removal PEG placement was successfully completed. Upon discharge there, the patient has been living with his daughter. The patient was brought to the emergency department at [facility] today, due to his daughter's concerns that she could no longer care for him at home. Disposition: Awaiting bed at [facility] Admission and Anticipated Discharge Date Admission Date: December 11, 2024 Subjective No events overnight. Pt awake and responsive this am. Review of Systems Review of Systems: CONST: Negative for fever, body aches and chills. HENT: Negative for neck pain/stiffness, headache, congestion, sore throat, swelling. EYES: Negative for discharge/pain or vision changes. RESP: Negative for cough/hemoptysis and shortness of breath. CV: Negative chest pain, difficulty breathing, palpitations. ABD: Negative pain, nausea, vomiting. : Negative increase frequency, dysuria, blood in urine or stool. MUSC: Negative for muscle aches, edema. SKIN: Negative rash, lesions/sores. NEURO: Negative headache, dizziness, weakness. Physical Exam Physical Exam: GENERAL APPEARANCE NAD, activity normal for age, well developed/ well nourished, no cyanosis, pallor, or diaphoresis. EYES lids/conjunctiva normal. EARS/NOSE/THROAT Mucous membranes moist, nares normal, lips/teeth normal uvula midline without oral pharyngeal erythema, exudate or swelling TMs normal bilaterally. No lymphangitis/lymphedema. HEAD/NECK normocephalic atraumatic, no facial trauma, neck is supple. RESPIRATORY respiratory effort normal, speaks in full sentences, no tripod position, no accessory muscle use. Lungs clear to auscultation without rhonchi, wheezes, rales CARDIAC Regular rate and rhythm, no edema. ABDOMINAL Soft, ND/NT. No evidence of fluid wave. No pulsatile masses on exam, rebound tenderness, Logan sign or pain over Mcburney's point. MUSCLES/EXTREMITIES No abnormal range of motion, no swelling. SKIN Warm, pink and dry. No rashes, dermatoses, petechiae or lesions. NEUROLOGICAL Speech is clear and appropriate. Normal level of consciousness. Gait and coordination are normal. 5/5 strength in all extremities. PSYCH Normal mood and affect. Judgement/competence is appropriate Results & Data Results & Data Vital Signs (Past 12 Hours) Vital Signs Temp Pulse Pulse Resp BP Pulse Ox O2 Del Method 12/20/24 07:20 36.3 C L 103 H 16 113/72 92 Room Air 12/20/24 03:01 36.6 C 80 18 109/66 97 Room Air 12/19/24 22:54 36.6 C 89 18 131/77 95 Room Air 12/19/24 22:00 87 PG Care Time/CCT Total # of Minutes Spent Total Time Spent with Patient: Total time spent is greater than 50% in coordination of care (as documented) at patient's floor/unit and/or counseling patient: Coding Level of Care Code 73798 SUB INP/OBS CARE 2/35MIN Diagnoses CVA (cerebral vascular accident) I63.9 Agitation R45.1 Atrial flutter I48.92 Acute alcohol intoxication delirium with moderate or severe use disorder F10.221
[2024-12-20] MEDS ORDERED: Nursing to Pharmacy Communication SCH (10:15)
[2024-12-21 06:49] LABS: Hematocrit (blood only) 24.8 % (42.0-52.0); Hemoglobin 7.6 g/dl (14.0-18.0); Mean Corpuscular Hemoglobin 27.6 pg (25.0-34.0); Mean Corpuscular Volume 90.2 fL (80.0-100.0); Platelet Count 361 K/uL (130-400); RDW Standard Deviation 52.7 fL (36.4-46.3); Red Blood Count 2.75 M/uL (4.70-6.10); White Blood Count 8.34 K/ul (4.8-10.8)
[2024-12-21 07:03] LABS: Anion Gap 4.0 (3-11); Blood Urea Nitrogen 25.0 mg/dl (6-23); Calcium 8.6 mg/dl (8.6-10.3); Carbon Dioxide 26.0 mmol/L (21-32); Chloride 107.0 mmol/L (98-107); Creatinine Clr Calc Pharmacy 65.7 ml/min; Glucose 87.0 mg/dl (70-99(Fasting)); Potassium 4.0 mmol/L (3.5-5.1); Sodium 137.0 mmol/L (136-145)
--- NOTE | 2024-12-21 09:38 | Hospitalist Progress Note ---
Date of Service December 21, 2024 Assessment & Plan (1) CVA (cerebral vascular accident): Plan: CT show ill-defined hypodense area noted involving the right frontal parietal lobe cortex, subcortical and periventricular white matter. This is the same area that is noted on report from outside MRI 10/31 evolving right MCA CVA, and CT scan 11/06/2024 noting hemorrhagic conversion of right MCA stroke. brain MRI completed on 12/10/[address] Maribeth lawrence; explained this is chronic finding (2) Anemia: Plan: h/h drop from 8.5-> 5.9 on Dec 11 s/p 2 u unit on (12/11) s/p one unit on 12/12 h/h drop from 9.0--> 7.6, GI potential will re-eval for EGD (3) Agitation: Plan: Post CVA dementia medications adjusted Valium tapered Zyprexa fluoxetine (4) Atrial flutter: Plan: on lovenox Q12 (5) Acute alcohol intoxication delirium with moderate or severe use disorder: Plan: Continue thiamine, folic acid, olanzapine Plan The patient is a 69-year-old male with a past medical history including hyperlipidemia, depression with anxiety, current smoker, DVT, HAP, history of alcohol use disorder and intoxication, chronic systolic CHF, status post ICD, nonischemic cardiomyopathy, NSVT, atrial flutter, CAD, MRSA, mitral valve repair BPH with LUTS who was most recently admitted to [facility] from 09/29- 10/11/2024, where he was initially admitted to the PCU, and then transferred to the ICU for alcohol withdrawal, and acute agitated delirium, acute hypoxic respiratory failure and HAP. He was then discharged to an LTAC. The patient was transferred from LTAC to [facility] on 11/04/24 with complaint of coffee-ground emesis which had started earlier in the morning. CT scan in the ED showed findings concerning for a subacute infarct versus hemorrhagic conversion in the right frontal lobe. Neurosurgery was consulted and was advised to admit under hospitalist service they are. The patient was reported to have had a fall on 10/18/2024. He previously had an MRI on 10/30/2024, which revealed a right MCA CVA. On 11/06/2024, neurology recommended holding Eliquis for 7 to 10 days, and that his follow-up CT of the head should be completed prior to restarting Eliquis, and then get a repeat scan 48 hours after restarting. He underwent an EGD on 11/14/2024 which showed normal esophagus, stomach, duodenum and second portion of duodenum. An endoscopically removal PEG placement was successfully completed. Upon discharge there, the patient has been living with his daughter. The patient was brought to the emergency department at [facility] today, due to his daughter's concerns that she could no longer care for him at home. Disposition: Awaiting bed at [facility] once GI evaluation completed Admission and Anticipated Discharge Date Admission Date: December 11, 2024 Subjective No events overnight. Pt awake and responsive this am. Physical Exam Physical Exam: GENERAL APPEARANCE NAD, activity normal for age, well developed/ well nourished, no cyanosis, pallor, or diaphoresis. EYES lids/conjunctiva normal. EARS/NOSE/THROAT Mucous membranes moist, nares normal, lips/teeth normal uvula midline without oral pharyngeal erythema, exudate or swelling TMs normal bilaterally. No lymphangitis/lymphedema. HEAD/NECK normocephalic atraumatic, no facial trauma, neck is supple. RESPIRATORY respiratory effort normal, speaks in full sentences, no tripod position, no accessory muscle use. Lungs clear to auscultation without rhonchi, wheezes, rales CARDIAC Regular rate and rhythm, no edema. ABDOMINAL Soft, ND/NT. No evidence of fluid wave. No pulsatile masses on exam, rebound tenderness, Logan sign or pain over Mcburney's point. MUSCLES/EXTREMITIES No abnormal range of motion, no swelling. SKIN Warm, pink and dry. No rashes, dermatoses, petechiae or lesions. NEUROLOGICAL Speech is clear and appropriate. Normal level of consciousness. Gait and coordination are normal. 5/5 strength in all extremities. PSYCH Normal mood and affect. Judgement/competence is appropriate Results & Data Results & Data Vital Signs (Past 12 Hours) Vital Signs Temp Pulse Pulse Resp BP Pulse Ox O2 Del Method 12/21/24 07:59 84 12/21/24 07:23 36.4 C L 85 19 115/67 95 Room Air 12/21/24 04:42 36.3 C L 80 14 136/73 98 Room Air 12/20/24 23:49 36.5 C 94 H 18 139/74 97 Room Air 12/20/24 22:00 87 PG Care Time/CCT Total # of Minutes Spent Total Time Spent with Patient: Total time spent is greater than 50% in coordination of care (as documented) at patient's floor/unit and/or counseling patient: Coding Level of Care Code 92922 SUB INP/OBS CARE 2/35MIN Diagnoses CVA (cerebral vascular accident) I63.9 Anemia D64.9 Agitation R45.1 Atrial flutter I48.92 Acute alcohol intoxication delirium with moderate or severe use disorder F10.221
--- NOTE | 2024-12-21 10:42 | Gastroenterology Progress Note ---
Date of Service December 21, 2024 Assessment & Plan (1) Anemia: (2) Gastrostomy status: (3) Melena: Plan IMPRESSION: 69-year-old gentleman with multiple comorbidities including hyperlipidemia, tobacco abuse DVT, CHF, alcohol abuse, ICD placement, nonischemic cardiomyopathy, coronary disease, atrial flutter status post ICU admission for alcohol withdrawal, delirium and acute hypoxic respiratory failure complicated by hospital-acquired pneumonia. The patient has been having downtrending hemoglobin. -- Patient's status post EGD 11/14/2024 during which PEG was placed. No findings were noted including any portal hypertensive changes. Despite downtrending hemoglobin significant active gastrointestinal bleeding is highly unlikely -- Continue to trend hemoglobin. If progressive then may need to reevaluate endoluminal evaluation. Certainly small bowel pathology could also be at play. -- Discussed with patient's nurse to monitor closely for any overt signs of gastrointestinal bleeding -- Aggressive bowel regimen is advised in part to prevent fecal impaction but al so to help monitor patient's GI bleeding status. As internal blood is highly cathartic, significant active bleed is not suspected at this time. -- Once daily proton pump inhibitor is reasonable for gastroprotection particular as internal PEG tube can be irritating to the GI mucosa. --Will continue to monitor clinically and reassess need for EGD. Admission and Anticipated Discharge Date Admission Date: December 11, 2024 Subjective I was asked to reevaluate the patient for downtrending hemoglobin and possible ongoing gastrointestinal bleeding. The patient was seen at bedside. He is somnolent and able to give limited history. Discussion with his nurse indicates that the patient is tolerating meds per PEG tube without any coffee-ground or bloody material seen through the PEG tube. The patient has not had any bowel movements. There was some report of dark material a day or 2 ago. The patient denies any pain, nausea or vomiting at this time. Review of Systems Review of Systems: All systems reviewed & are unremarkable except as noted in HPI & below Constitutional: + weakness, + weight loss and + daytime sleepiness; no sweats Eyes: no problem reported Ear, Nose, Mouth, Throat: no problem reported Gastrointestinal: + constipation; no nausea, no vomiting, no coffee ground emesis, no hematemesis, no pain with swallowing, no dysphagia, no change in stools, no diarrhea/loose stools and no blood in stools Musculoskeletal: Debilitated Physical Exam Constitutional: + ill appearing, + thin, comfortable and + malnourished Eyes: + anicteric sclerae Neck: trachea midline, no thyromegaly Cardiovascular: RRR, no murmur, no edema Gastrointestinal (Abdomen): Inspection/Auscultation: abdomen normal to inspection and normal bowel sounds; abdomen not distended and no abdominal edema Percussion/Palpation: abdomen soft; abdomen nontender, abdomen not rigid and abdomen not firm Results & Data Results & Data Vital Signs (Past 12 Hours) Vital Signs Temp Pulse Pulse Resp BP Pulse Ox O2 Del Method 12/21/24 07:59 84 12/21/24 07:23 36.4 C L 85 19 115/67 95 Room Air 12/21/24 04:42 36.3 C L 80 14 136/73 98 Room Air 12/20/24 23:49 36.5 C 94 H 18 139/74 97 Room Air PG Care Time/CCT Total # of Minutes Spent Total Time Spent with Patient: Total time spent is greater than 50% in coordination of care (as documented) at patient's floor/unit and/or counseling patient: Coding Level of Care Code 63461 SUB INP/OBS CARE 3/50MIN Diagnoses Anemia, unspecified type D64.9 Anemia type: unspecified type Gastrostomy status Z93.1 Melena K92.1 (1) Anemia Anemia type: unspecified type Qualified Code(s): D64.9 - Anemia, unspecified
[2024-12-22 05:54] LABS: Hematocrit (blood only) 24.1 % (42.0-52.0); Hemoglobin 7.7 g/dl (14.0-18.0); Mean Corpuscular Hemoglobin 28.5 pg (25.0-34.0); Mean Corpuscular Volume 89.3 fL (80.0-100.0); Platelet Count 375 K/uL (130-400); RDW Standard Deviation 51.8 fL (36.4-46.3); Red Blood Count 2.70 M/uL (4.70-6.10); White Blood Count 8.58 K/ul (4.8-10.8)
[2024-12-22 07:09] VITALS: RESP 19
[2024-12-22 07:12] LABS: Anion Gap 6.0 (3-11); Calcium 8.9 mg/dl (8.6-10.3); Carbon Dioxide 25.0 mmol/L (21-32); Chloride 107.0 mmol/L (98-107); Potassium 4.1 mmol/L (3.5-5.1); Sodium 138.0 mmol/L (136-145)
[2024-12-22 07:17] LABS: Blood Urea Nitrogen 27.0 mg/dl (6-23); Creatinine Clr Calc Pharmacy 69.9 ml/min; Glucose 82.0 mg/dl (70-99(Fasting))
--- NOTE | 2024-12-22 09:53 | Discharge Summary ---
Discharge Summary Date of Service December 22, 2024 Principal Dx & Hospital Course #1 = Principal Diagnosis (1) CVA (cerebral vascular accident): CT show ill-defined hypodense area noted involving the right frontal parietal lobe cortex, subcortical and periventricular white matter. This is the same area that is noted on report from outside MRI 10/31 evolving right MCA CVA, and CT scan 11/06/2024 noting hemorrhagic conversion of right MCA stroke. brain MRI completed on 12/10/[address] Stahl neurology; explained this is chronic finding (2) Anemia: h/h drop from 8.5-> 5.9 on Dec 11 s/p 2 u unit on (12/11) s/p one unit on 12/12 h/h drop from 9.0--> 7.6, GI re-evaluation appreciated, no need for EGD at this time Con't PPI (3) Agitation: Post CVA dementia medications adjusted Valium tapered Zyprexa fluoxetine (4) Atrial flutter: on lovenox Q12 (5) Acute alcohol intoxication delirium with moderate or severe use disorder: Continue thiamine, folic acid, olanzapine Plan The patient is a 69-year-old male with a past medical history including hyperlipidemia, depression with anxiety, current smoker, DVT, HAP, history of alcohol use disorder and intoxication, chronic systolic CHF, status post ICD, nonischemic cardiomyopathy, NSVT, atrial flutter, CAD, MRSA, mitral valve repair BPH with LUTS who was most recently admitted to [facility] from 09/29- 10/11/2024, where he was initially admitted to the PCU, and then transferred to the ICU for alcohol withdrawal, and acute agitated delirium, acute hypoxic respiratory failure and HAP. He was then discharged to an LTAC. The patient was transferred from LTAC to [facility] on 11/04/24 with complaint of coffee-ground emesis which had started earlier in the morning. CT scan in the ED showed findings concerning for a subacute infarct versus hemorrhagic conversion in the right frontal lobe. Neurosurgery was consulted and was advised to admit under hospitalist service they are. The patient was reported to have had a fall on 10/18/2024. He previously had an MRI on 10/30/2024, which revealed a right MCA CVA. On 11/06/2024, neurology recommended holding Eliquis for 7 to 10 days, and that his follow-up CT of the head should be completed prior to restarting Eliquis, and then get a repeat scan 48 hours after restarting. He underwent an EGD on 11/14/2024 which showed normal esophagus, stomach, duodenum and second portion of duodenum. An endoscopically removal PEG placement was successfully completed. Upon discharge there, the patient has been living with his daughter. The patient was brought to the emergency department at [facility], due to his daughter's concerns that she could no longer care for him at home. Disposition: Awaiting bed at [facility] Admission HPI Per Admitting Provider The patient is a 69-year-old male with a past medical history including hyperlipidemia, depression with anxiety, current smoker, DVT, HAP, history of alcohol use disorder and intoxication, chronic systolic CHF, status post ICD, nonischemic cardiomyopathy, NSVT, atrial flutter, CAD, MRSA, mitral valve repair BPH with LUTS who was most recently admitted to [facility] from 09/29- 10/11/2024, where he was initially admitted to the PCU, and then transferred to the ICU for alcohol withdrawal, and acute agitated delirium, acute hypoxic respiratory failure and HAP. He was then discharged to an LTAC. The patient was transferred from LTAC to [facility] on 11/04/24 with complaint of coffee-ground emesis which had started earlier in the morning. CT scan in the ED showed findings concerning for a subacute infarct versus hemorrhagic conversion in the right frontal lobe. Neurosurgery was consulted and was advised to admit under hospitalist service they are. The patient was reported to have had a fall on 10/18/2024. He previously had an MRI on 10/30/2024, which revealed a right MCA CVA. On 11/06/2024, neurology recommended holding Eliquis for 7 to 10 days, and that his follow-up CT of the head should be completed prior to restarting Eliquis, and then get a repeat scan 48 hours after restarting. He underwent an EGD on 11/14/2024 which showed normal esophagus, stomach, duodenum and second portion of duodenum. An endoscopically removal PEG placement was successfully completed. Upon discharge there, the patient has been living with his daughter. The patient was brought to the emergency department at [place] today, due to his daughter's concerns that she could no longer care for him at home. Discharge Exam GENERAL APPEARANCE NAD, activity normal for age, well developed/ well nourished, no cyanosis, pallor, or diaphoresis. EYES lids/conjunctiva normal. EARS/NOSE/THROAT Mucous membranes moist, nares normal, lips/teeth normal uvula midline without oral pharyngeal erythema, exudate or swelling TMs normal bilaterally. No lymphangitis/lymphedema. HEAD/NECK normocephalic atraumatic, no facial trauma, neck is supple. RESPIRATORY respiratory effort normal, speaks in full sentences, no tripod position, no accessory muscle use. Lungs clear to auscultation without rhonchi, wheezes, rales CARDIAC Regular rate and rhythm, no edema. ABDOMINAL Soft, ND/NT. No evidence of fluid wave. No pulsatile masses on exam, rebound tenderness, Logan sign or pain over Mcburney's point. MUSCLES/EXTREMITIES No abnormal range of motion, no swelling. SKIN Warm, pink and dry. No rashes, dermatoses, petechiae or lesions. NEUROLOGICAL Speech is clear and appropriate. Normal level of consciousness. Gait and coordination are normal. 5/5 strength in all extremities. PSYCH Normal mood and affect. Judgement/competence is appropriate Discharge Plan Discharge Items Patient Disposition[facility] Reason For Visit: ENCEPHALOPATHY, NHP Discharge Diagnosis: Post CVA dementia Condition on Discharge: Serious Activity: Resume your previous activity Non-emergency contact: Primary Care Provider Call non-emergency contact if: you have any medication questions Follow-up/Referrals: Rosemarie Lopes CRNP [Primary Care Provider] - Diet: Regular Addtl Attending Provider Instructions: Follow up with PMD in 2 weeks Pending Studies at Discharge: No Stand-Alone Forms: My [facility], Work/School Release Skilled Items Patient informed of condition?: No DNR: No Discharge Level of Care: Acute rehab Communicable Disease: No Discharge Prognosis: Stable Lines: None Urinary Catheter: No Medications and DC Order Prescriptions: New pantoprazole 40 mg Tablet,Delayed Release (Dr/Ec) 40 mg PO BID Qty: 60 0RF fluoxetine 20 mg Capsule 20 mg PO QAM Qty: 30 0RF Cerovite Senior 0.4 mg-300 mcg- 250 mcg Tablet 1 tab PO QAM Qty: 30 0RF Continued Eliquis 5 mg tablet 5 mg feeding tube BID aspirin 81 mg capsule 81 mg feeding tube DAILY atorvastatin 40 mg tablet 40 mg feeding tube DAILY sennosides [senna] 8.8 mg/5 mL syrup 5 ml feeding tube DAILY lorazepam [Ativan] 0.5 mg tablet 0.5 mg feeding tube BID PRN (Reason: Anxiety) folic acid 1 mg tablet 1 mg feeding tube DAILY olanzapine 15 mg tablet 15 mg feeding tube QPM Lactobacillus rhamnosus GG 10 billion cell capsule 1 cap feeding tube DAILY dicyclomine 10 mg capsule 10 mg feeding tube TID thiamine HCl (vitamin B1) 100 mg tablet 100 mg feeding tube QAM Jevity 1.5 Madhav 0.06 gram-1.5 kcal/mL liquid 0 ea feeding tube QID Rx Instructions: bolus feeds of Jevity 1.5 via PEG at 355 mL, 4x/day(08:00, 12:00, 15:00, 19:00) with FWF of 90mL before and after each bolus feed + 120 mL TID/day. Provides: Total Volume: 1420 mL Kcals: 2130(30 kcals/kg) Protein: 91g(1.3g/kg) FW: 1079 mL from formula + 90 mL FWF before and after each meal + 360m//day: 2159 mL(30 mL/kg)2. Please continue daily weights and TF intake documentation potassium chloride 20 mEq tablet extended release 20 meq PO DAILY Qty: 100 3RF metoprolol succinate 50 mg tablet extended release 24 hr 50 mg PO DAILY Qty: 90 3RF albuterol sulfate 90 mcg/actuation Hfa Aerosol Inhaler 2 puff INHALATION QID PRN (Reason: Shortness Of Breath Or Wheezing) coenzyme Q10 [Co Q-10] 100 mg capsule 100 mg PO DAILY Discontinued lansoprazole 30 mg capsule,delayed release(DR/EC) 30 mg PO BID Qty: 180 3RF Discharge Orders: Discharge Order (Routine); Ordered 12/22/24 Ordered By: Ismael Joseph Admission Data Admit Date/Time: 12/11/24 08:05 Attending Provider: Ismael Joseph Admit Provider: Harlan Stock Primary Care Provider: Rosemarie Lopes Other Providers: Harlan Stock; Gabino Stahl; Moises Gonzales Jr; [facility]; [facility]; Cecille Ozuna; Mario Zhou; Zayda Schroeder; [place]; Rodriguez Zeng; Fabian Conrad; Sachin Newton; Sugar Marcelo; Ildefonso Davis Hospital Stay Data Consultations 12/10/24 01:12 ED Decision to Admit Stat 12/10/24 07:40 Consult Neurology Routine 12/10/24 08:24 Consult Neurology Routine 12/11/24 07:57 Consult Gastroenterology Routine 12/12/24 10:13 Consult Palliative Care Routine 12/18/24 10:35 Consult Psychiatry Routine 12/21/24 07:33 Consult Gastroenterology Routine Procedures Performed Operation Date: 12/13/24 17:10 <No data on this case meets the specified criteria> Diagnostic Imagining Performed 12/10/24 02:05 CT head/brain wo con Stat 12/10/24 08:18 MRI Brain [MR brain wo/w con] Routine 12/16/24 10:30 CTA head w con [CT angio head w con] Stat 12/16/24 10:31 CT for pulmonary embolism PE [CT angio chest PE protocol] Stat CTA neck with con [CT angio neck with con] Stat Pending Results Patient Have Any Pending Studies at Discharge: No Discharge Instructions Given to Patient (Per Discharging Provider) Follow up with PMD in 2 weeks Total Time Total Time Spent Total Time Spent (In Minutes): 50 Coding Level of Care Code 15272 INP/OBS DISCH >30 MIN Diagnoses CVA (cerebral vascular accident) I63.9 Anemia, unspecified type D64.9 Anemia type: unspecified type Agitation R45.1 Atrial flutter I48.92 Acute alcohol intoxication delirium with moderate or severe use disorder F10.221
[2024-12-22 10:54] VITALS: BP 111/59; TEMP 97.9; O2SAT 96
[2024-12-22 11:31] VITALS: PULSE 81
== END 2024-12-22 16:01 | DRG 64 ==
LOC: EDINP 22:14 → ED 22:14 → SUATTDRO 12-10 02:18 → 3N 12-10 02:31 → 3W 12-10 22:23 → SUATTDRO 12-11 08:05 → 1E 12-11 10:42 → 2S 12-12 17:55